=== PATIENT | female | born 1945 | race Caucasian/White ===

== ENCOUNTER → 2020-02-05 10:12 | Outpatient (CLI) | payer OTHER, SELFPAY ==
[2020-02-05 12:21] LABS: Add Manual Diff / Slide Review NO; Basophils Absolute Auto 100 /uL (0-100); Eosinophils Absolute Auto 400 /uL (0-450); Eosinophils Percent Auto 3.2 % (2-4); Hematocrit 40.8 % (36-46); Hemoglobin 13.4 g/dL (12.0-16.0); Lymphocytes Absolute Auto 3500 /uL (1100-4500); Lymphocytes Percent Auto 29.5 % (25-40); Mean Corpuscular HGB Conc 32.7 % (30-36); Mean Corpuscular Hemoglobin 31.7 PG (26-34); Mean Corpuscular Volume 96.7 fL (80-100); Monocytes Absolute Auto 800 /uL (0-900); Monocytes Percent Auto 6.3 % (3-14); Neutrophils Absolute Auto 7100 /uL (1500-7000); Platelet Count 169 X10^3/uL (150-400); Red Blood Cell Count 4.22 X10^6/uL (4.0-5.2); Red Cell Distribution Width 13.7 % (11.6-14.8); White Blood Cell Count 11.8 X10^3/uL (4.5-11.0)
[2020-02-05 12:35] LABS: Alanine Aminotransferase 17 IU/L (<35); Albumin 4.2 g/dL (3.5-5.0); Albumin Globulin Ratio 1.6 (1.0-2.8); Alkaline Phosphatase 34 U/L (38-126); Aspartate Aminotransferase 32 IU/L (14-36); BUN Creatinine Ratio 33.3 (6-22); Bilirubin Total 0.5 mg/dL (0.2-1.3); Blood Urea Nitrogen 15 mg/dL (7-17); Calcium 9.5 mg/dL (8.4-10.2); Carbon Dioxide 29 mmol/L (22-32); Chloride 105 mmol/L (98-107); Cholesterol 258 mg/dL (140-199); Estimated Glomerular Filt Rate > 60.0 mL/min (>60); Globulin 2.6 g/dL (1.7-4.1); Glucose 88 mg/dL (80-110); HDL Cholesterol 44 mg/dL (40-60); HEMOLYSIS < 15 (0-50); LDL Cholesterol Calculated 143 mg/dL (<100); Potassium 3.9 mmol/L (3.4-5.1); Sodium 141 mmol/L (137-145); Total Protein 6.8 g/dL (6.3-8.2); Triglycerides 354 mg/dL (35-150)
== END ==
PROVIDERS: PCP Family Medicine; Referring Provider Family Medicine; Visit Provider Family Medicine
DX: E78.2 Mixed hyperlipidemia (principal); M06.9 Rheumatoid arthritis, unspecified; Z79.899 Other long term (current) drug therapy
CPT/HCPCS: 36415; 80053; 80061; 85025

== ENCOUNTER 2020-11-03 11:39 | Emergency (ER) | payer OTHER, MEDICAID, SELFPAY ==
[2020-11-03] VITALS (12 sets, daily range): BP systolic 81–97; BP diastolic 44–55; PULSE 80–89; RESP 16; TEMP 36.2; O2SAT 94–98
--- NOTE | 2020-11-03 11:40 | PC.NURSE ---
Brought via wheelchair, with family. NAD noted
--- NOTE | 2020-11-03 15:06 | ED_ITS ---
HPI - Wound/Laceration General Chief Complaint: Wound/Laceration Stated Complaint: Sore on the Back Time Seen by Provider: 11/03/20 15:06 Source: patient Mode of arrival: Wheelchair Limitations: no limitations History of Present Illness HPI narrative: This is a 75-year-old female comes emergency department with comp laint of wound on her back. Patient states it has been there for approximately a month. She states initially it started with likely a skin tear after her skin got stuck to her wheelchair when it was very hot. She is not able to visualize the area. She states her caregiver noted there was a little bit of a smell today. Patient was seen at the walk-in clinic and was referred to us. She has been afebrile the area is nonpainful. She has not appreciated much discharge. She does not know if it has been growing in size but does not think it has been healing in all. She denies any chest pain or shortness of breath. No nausea or vomiting, no other GI or urinary symptoms. She has a history of rheumatoid arthritis as well as multiple sclerosis. She is also on methotrexate daily. She is wheelchair bound. Patient is noted to be hypotensive in the department. She states this is very much her normal and is not atypical. She is accompanied by her daughter who is also wheelchair-bound secondary to MS. Related Data Home Medications Medication Instructions Recorded Confirmed [bee pollen complex] #0 02/10/16 06/24/20 [garlic] #0 02/10/16 06/24/20 [probiotic] #0 02/10/16 06/24/20 [vitamin d3] #0 02/10/16 06/24/20 ascorbic acid (vitamin C) 500 mg #0 02/10/16 06/24/20 tablet folic acid 1 mg tablet #0 02/10/16 06/24/20 glucosamine sulfate 500 mg capsule #0 02/10/16 06/24/20 (Genicin) lorazepam 0.5 mg tablet (Ativan) 0.5 mg PO HS #90 tab 02/10/16 06/24/20 multivitamin (Multiple Vitamins) #0 02/10/16 06/24/20 vitamin B complex (B #0 02/10/16 06/24/20 Complex-Vitamin B12) vitamin E 100 unit capsule #0 02/10/16 06/24/20 Previous Rx's Medication Instructions Recorded Wheelchair: Power Mobility Device ea #1 02/10/16 alendronate 70 mg tablet (Fosamax) 70 mg PO QWEEK #4 tab 10/11/17 mupirocin 2 % topical ointment 1 applictn TOP BID #30 gram 04/06/18 incontinence supplies #150 each 05/05/18 wheelchair #1 each 07/24/18 methotrexate sodium 2.5 mg tablet 12.5 mg PO .COMPLEX #90 tab 10/09/19 hydroxychloroquine 200 mg tablet 200 mg PO BID #60 tab 01/16/20 (Plaquenil) atorvastatin 40 mg tablet 40 mg PO DAILY #90 tab 02/08/20 prednisone 2.5 mg tablet See Rx Instructions .ROUTE 09/04/20 .COMPLEX #90 tab potassium chloride 10 mEq See Rx Instructions .ROUTE 10/07/20 capsule,extended release .COMPLEX #60 cap clindamycin HCl 300 mg capsule 300 mg PO QID #40 cap 11/03/20 Allergies Allergy/AdvReac Type Severity Reaction Status Date / Time NSAIDS (Non-Steroidal Allergy Mild Verified 06/24/20 09:42 Anti-Inflamma [NSAIDS (NON-STEROIDAL ANTI-INFLAMMA] Review of Systems Review of Systems ROS Unobtainable: All systems reviewed & are unremarkable except as noted in HPI and below Patient History Social History Smoking Status: Never smoker Smoking Status: Never smoker Substance Use Type: does not use Exam Narrative Exam Narrative: GENERAL: Alert and oriented x three, elderly female in mild distress. HEENT: Head normocephalic, atraumatic, EOMI, pupils reactive, face symmetric, moist mucous membranes NECK: Supple, full range of motion CARDIOVASCULAR: Regular rate and rhythm without murmurs, rubs or gallops. RESPIRATORY: Breath sounds equal bilaterally, no wheezes rales or rhonchi. ABDOMEN: Soft, nontender. Normoactive bowel sounds all 4 quadrants. No guarding or rebound, rigidity, no mass : No CVA tenderness BACK: No cervical, thoracic or lumbar vertebral point tenderness. Patient does have severe kyphosis. On her right thoracic back she has an area of 8 x 6 cm with central ulceration. There is some some foul odor. There is no active drainage and there is film of white discoloration. Area is nontender. There is a ring of induration surrounding with some localized erythema but not extending more than a cm beyond the edge. There is no fluctuance. Patient has normally decreased range of motion and requires significant assistance for movement in bed. Patient has normal movement in her upper extremities. She has little movement in her lower extremities. EXTREMITIES: Neurovascularly intact NEUROLOGICAL: Cranial nerves II through XII grossly intact. Moving all extremities SKIN: Warm, dry, no petechiae, no rashes or lesions other than noted above. Initial Vital Signs Initial Vital Signs: Vital Signs Temperature 97.2 F L 11/03/20 12:23 Pulse Rate 89 11/03/20 12:23 Respiratory Rate 16 11/03/20 12:23 Blood Pressure 88/44 L 11/03/20 12:23 Pulse Oximetry 94 11/03/20 12:23 Course Orders Ordered: ED Orders 11/03/20 15:20 CT chest w con Stat 11/03/20 15:25 Consult to [facility] [place] [facility] Man Stat 11/03/20 15:27 Wound Culture and Gram Stain Stat 11/03/20 15:42 Basic Metabolic Panel Stat Complete Blood Count AUTO DIFF Stat Lactate (Lactic Acid) Stat Procalcitonin Stat 11/03/20 15:49 Blood Culture Stat 11/03/20 16:06 Consult to Home Health Stat Discontinued Medications Clindamycin Phosphate (Cleocin) 600 mg in 50 mls @ 50 mls/hr IV Q8H MÓNICA Last Infusion: 11/03/20 17:54 Dose: 0 mls/hr Documented by: Admin: 11/03/20 16:39 Dose: 50 mls/hr Documented by: LETTY Bray Consultation #1: Dr. Negron patient's PCP and I discussed her findings today. Wound care referral for home management but that patient may return with worsening infection and need inpatient. Vital Signs Vital signs: Vital Signs - 8 hr 11/03/20 12:23 11/03/20 15:10 11/03/20 15:13 Temperature 97.2 F L Pulse Rate 89 89 84 Respiratory Rate 16 Blood Pressure 88/44 L Pulse Oximetry 94 97 97 11/03/20 15:19 11/03/20 15:30 11/03/20 15:52 Temperature Pulse Rate 84 Respiratory Rate Blood Pressure 85/53 L 85/50 L Pulse Oximetry 98 11/03/20 16:00 11/03/20 16:30 11/03/20 17:14 Temperature Pulse Rate 85 83 80 Respiratory Rate Blood Pressure 88/52 L 81/47 L Pulse Oximetry 97 98 96 11/03/20 17:15 11/03/20 17:30 11/03/20 18:00 Temperature Pulse Rate 80 80 83 Respiratory Rate Blood Pressure 97/50 L 90/49 L 89/55 L Pulse Oximetry 97 98 98 MDM - Wound/Laceration Lab Data Result diagrams: 11/03/20 15:42 11/03/20 15:42 Labs: Lab Results 11/03/20 11/03/20 11/03/20 Range/Units 15:42 15:42 15:42 WBC 13.2 H (4.5-11.0) X10^3/uL RBC 3.84 L (4.0-5.2) X10^6/uL Hgb 12.2 (12.0-16.0) g/dL Hct 37.3 (36-46) % MCV 97.2 (80-100) fL MCH 31.8 (26-34) PG MCHC 32.7 (30-36) % RDW 13.8 (11.6-14.8) % Plt Count 220 (150-400) X10^3/uL Neut % (Auto) 68.3 (50-75) % Lymph % (Auto) 19.9 L (25-40) % Brantley % (Auto) 8.2 (3-14) % Eos % (Auto) 2.2 (2-4) % Baso % (Auto) 1.4 (0-2) % Neut # (Auto) 9000 H (1410-0440) /uL Lymph # (Auto) 2600 (4306-2462) /uL Brantley # (Auto) 1100 H (0-900) /uL Eos # (Auto) 300 (0-450) /uL Baso # (Auto) 200 H (0-100) /uL Sodium 140 (137-145) mmol/L Potassium 3.9 (3.4-5.1) mmol/L Chloride 104 (98-107) mmol/L Carbon Dioxide 30 (22-32) mmol/L BUN 10 (7-17) mg/dL Creatinine 0.34 L (0.52-1.04) mg/dL Estimated GFR > 60.0 (>60) mL/min BUN/Creatinine Ratio 29.4 H (6-22) Glucose 103 (80-110) mg/dL Lactate 1.0 (0.7-2.1) mmol/L Calcium 9.6 (8.4-10.2) mg/dL Procalcitonin 0.55 H (<0.5) ng/mL Imaging Data CT scan - chest: Radiologist's Impression: [address] [id number] Scan ReportSigned Patient: Juliana Angel EMR#: [id number]: 1945cct:[id number]/Sex: 75 / FDate of Service: 11/03/20Loc: EDAccession Number: [id number] Procedure: CT chest w con Ordering Provider: Patsy Jiang D.O. PROCEDURE: CT CHEST W CON INDICATIONS: large wound on back, pressure ulcer TECHNIQUE: After the administration of intravenous contrast, 5 mm thick sections acquired from the pulmonary apices to the posterior costophrenic angles. 1 mm axial lung, 5 mm t hick coronal and sagittal reformats and 7 mm axial MIP were acquired. For radiation dose reduction, the following was used: automated exposure control, adjustment of mA and/or kV according to patient size. COMPARISON: None. FINDINGS: Image quality: Excellent. Lungs and pleura: No acute air space opacities. No pleural effusions or pneumothorax. Central and peripheral airways are patent and normal in caliber. Mediastinum: Heart size is normal. No pericardial effusion. No mediastinal or hilar adenopathy by size criteria. Thoracic aorta and central pulmonary arteries are normal in size. Esophagus is normal in caliber. No hiatal hernia. Bones and chest wall: No suspicious bony lesions. No vertebral body compression fractures. No axillary or supraclavicular adenopathy by size criteria. Thyroid gland is normal. There is soft tissue swelling posterior to the thoracic spine from T12 through L1 without underlying bony abnormality. Abdomen: Visualized upper abdominal solid organs appear normal. Upper abdominal bowel loops are normal in caliber. IMPRESSION: Soft tissue swelling in the midline of the lower thoracic spine. No evidence of underlying osteomyelitis. Dictated by: Aleksandr Salazar M.D. on 11/03/2020 at 17:41 Approved by: Aleksandr Salazar M.D. on 11/03/2020 at 17:46 [facility] Narrative Medical decision making narrative: This is a 75-year-old female comes with co mplaint of fluids and present for at least a month. Patient was sent by her caregiver for to walk-in clinic who then sent her here for evaluation. I suspect the area is infected. CT of the chest was obtained and there is no obvious osteomyelitis seen. Patient's labs do show an elevated procalcitonin. Patient has blood cultures as well as a wound culture pending. She was given a dose of IV antibiotics and we discussed keeping her for observation. Patient does not wish to be kept for inpatient observation at this time. We did discuss with her elevated procalcitonin at there is a possibility that she could have bacteremia or that she may fail on oral antibiotics and need to return for h ospitalization. Patient expresses her understanding, her daughter at bedside is also present. Patient has significant disability secondary to her MS and rheumatoid arthritis. She requested if it is possible to have Wound Care see her at home, our social media marketing analyst help to arrange this and she will likely be seen in the next few days. Discharge Plan Departure Patient Disposition: Home Clinical Impression: Infected wound Instructions: DI for Wound Infection Activity Restrictions/Additional Instructions: You have a large infected wound of your back. There is not appear to be any signs of infection in the bone. As discussed observation in the hospital for IV antibiotics would be appropriate but we can try a course of oral antibiotics. Wound care at home has been set up by social Work. Call to follow-up with your primary care physician to make sure your continuing to improve and for continuing care and directions for wound care. [facility] So you had received the 1st dose here start are while in biotics in the morning. Please return for fevers, new back pain, lightheadedness or passing out, chest pain or shortness of breath, persistent vomiting, new or increasing drainage from her back, increasing redness or spreading redness from your back or other new or worsening symptoms Prescriptions: New clindamycin HCl 300 mg capsule 300 mg PO QID Qty: 40 RF: 0 No Action mupirocin 2 % ointment 1 applictn TOP BID Qty: 30 RF: 0 lorazepam [Ativan] 0.5 MG tablet 0.5 mg PO HS Qty: 90 RF: 0 folic acid 1 MG tablet Qty: 0 RF: 0 [garlic] Qty: 0 RF: 0 multivitamin [Multiple Vitamins] 1 EACH tablet Qty: 0 RF: 0 [probiotic] Qty: 0 RF: 0 [vitamin d3] Qty: 0 RF: 0 vitamin E 100 UNIT capsule Qty: 0 RF: 0 ascorbic acid (vitamin C) 500 MG tablet Qty: 0 RF: 0 glucosamine sulfate [Genicin] 500 MG capsule Qty: 0 RF: 0 vitamin B complex [B Complex-Vitamin B12] 1 EACH tablet Qty: 0 RF: 0 [bee pollen complex] Qty: 0 RF: 0 Wheelchair: Power Mobility Device Qty: 1 RF: 0 alendronate [Fosamax] 70 mg tablet 70 mg PO QWEEK Qty: 4 RF: 3 (DME) incontinence supplies Qty: 150 RF: 0 (DME) wheelchair device See Dose Instructions .ROUTE .MEDSUPPLY Qty: 1 RF: 0 methotrexate sodium 2.5 mg tablet 12.5 mg PO .COMPLEX Qty: 90 RF: 3 hydroxychloroquine [Plaquenil] 200 mg tablet 200 mg PO BID Qty: 60 RF: 3 atorvastatin 40 mg tablet 40 mg PO DAILY Qty: 90 RF: 1 prednisone 2.5 mg tablet See Rx Instructions .ROUTE .COMPLEX Qty: 90 RF: 5 potassium chloride 10 mEq capsule, extended release See Rx Instructions .ROUTE .COMPLEX Qty: 60 RF: 1 Referrals: Radha Negron MD [Primary Care Provider] -
--- NOTE | 2020-11-03 15:20 | DI.CT.S_ITS ---
PROCEDURE: CT CHEST W CON INDICATIONS: large wound on back, pressure ulcer TECHNIQUE: After the administration of intravenous contrast, 5 mm thick sections acquired from the pulmonary apices to the posterior costophrenic angles. 1 mm axial lung, 5 mm thick coronal and sagittal reformats and 7 mm axial MIP were acquired. For radiation dose reduction, the following was used: automated exposure control, adjustment of mA and/or kV according to patient size. COMPARISON: None. FINDINGS: Image quality: Excellent. Lungs and pleura: No acute air space opacities. No pleural effusions or pneumothorax. Central and peripheral airways are patent and normal in caliber. Mediastinum: Heart size is normal. No pericardial effusion. No mediastinal or hilar adenopathy by size criteria. Thoracic aorta and central pulmonary arteries are normal in size. Esophagus is normal in caliber. No hiatal hernia. Bones and chest wall: No suspicious bony lesions. No vertebral body compression fractures. No axillary or supraclavicular adenopathy by size criteria. Thyroid gland is normal. There is soft tissue swelling posterior to the thoracic spine from T12 through L1 without underlying bony abnormality. Abdomen: Visualized upper abdominal solid organs appear normal. Upper abdominal bowel loops are normal in caliber. IMPRESSION: Soft tissue swelling in the midline of the lower thoracic spine. No evidence of underlying osteomyelitis. Dictated by: Aleksandr Salazar M.D. on 11/03/2020 at 17:41 Approved by: Aleksandr Salazar M.D. on 11/03/2020 at 17:46
[2020-11-03 15:58] LABS: Add Manual Diff / Slide Review NO; Basophils Absolute Auto 200 /uL (0-100); Basophils Percent Auto 1.4 % (0-2); Eosinophils Absolute Auto 300 /uL (0-450); Eosinophils Percent Auto 2.2 % (2-4); Hematocrit 37.3 % (36-46); Hemoglobin 12.2 g/dL (12.0-16.0); Lymphocytes Absolute Auto 2600 /uL (1100-4500); Lymphocytes Percent Auto 19.9 % (25-40); Mean Corpuscular HGB Conc 32.7 % (30-36); Mean Corpuscular Hemoglobin 31.8 PG (26-34); Mean Corpuscular Volume 97.2 fL (80-100); Monocytes Absolute Auto 1100 /uL (0-900); Monocytes Percent Auto 8.2 % (3-14); Neutrophils Absolute Auto 9000 /uL (1500-7000); Neutrophils Percent Auto 68.3 % (50-75); Platelet Count 220 X10^3/uL (150-400); Red Blood Cell Count 3.84 X10^6/uL (4.0-5.2); Red Cell Distribution Width 13.8 % (11.6-14.8); White Blood Cell Count 13.2 X10^3/uL (4.5-11.0)
[2020-11-03 16:09] LABS: BUN Creatinine Ratio 29.4 (6-22); Blood Urea Nitrogen 10 mg/dL (7-17); Calcium 9.6 mg/dL (8.4-10.2); Carbon Dioxide 30 mmol/L (22-32); Chloride 104 mmol/L (98-107); Estimated Glomerular Filt Rate > 60.0 mL/min (>60); Glucose 103 mg/dL (80-110); HEMOLYSIS < 15 (0-50); Potassium 3.9 mmol/L (3.4-5.1); Sodium 140 mmol/L (137-145)
[2020-11-03 16:26] LABS: Procalcitonin 0.55 ng/mL (<0.5)
[2020-11-03] MEDS: CLINDAMYCIN 600 MG/50 ML PIGGYBACK 50 MG IV (16:39)
--- NOTE | 2020-11-03 16:51 | CM.SWNOTE ---
COMPOSITE MECHANIC Note COMPOSITE MECHANIC receives consult and meets with patient and daughter Mekhi. Patient is 75 y/o female who presents with concerns for wound on her back. Patient has hx of MS and is wheelchair bound. Patient has daily caregivers in the morning and evening that support patient with ADLs, shopping and cleaning. Patient endorses that caregivers support patient with transfer from recliner to wheelchair, transfer to toileting and sponge bath bathing as well as getting dressed. COMPOSITE MECHANIC discusses HH for worship pastor and bath aide, patient indicates agreement and understanding and suggests COMPOSITE MECHANIC contact one of her caregivers Gillian (Ph. # [phone]) who will also be providing ride for patient upon d/c. COMPOSITE MECHANIC provides patient with medicare HH options and patient chooses [facility] as she has utilized this agency before. COMPOSITE MECHANIC contacts caregiver Gillian and Gillian indicates agreement with managed care manager and HH bath aide services and indicates she will follow up with patient's further needs after HH. COMPOSITE MECHANIC contacts Stephanie at [facility] (Ph. # [phone]) regarding referral and COMPOSITE MECHANIC faxes clinical packet. COMPOSITE MECHANIC provides patient with [facility] brochure, senior resource guide and Medicare HH option list. Plan: Patient to d/c to home when medically clear with [facility]. KERI Sweeney
--- NOTE | 2020-11-03 17:56 | PC.NURSE ---
patient reports hypotention at baseline. states im always 80s and 90s. Provider aware.
== END 2020-11-03 18:35 | disposition home or self-care (01) ==
PROVIDERS: Emergency Provider Emergency Medicine; PCP Family Medicine
DX: L08.9 Local infection of the skin and subcutaneous tissue, unspecified (principal)
CPT/HCPCS: 36415; 71260; 80048; 83605; 84145; 85025; 87040; 87070; 87075; 87077; 87186; 87205; 96365; 99284; Q9967

== ENCOUNTER 2020-11-09 17:18 | Inpatient (IN) | payer OTHER, MEDICAID, SELFPAY ==
[2020-11-09] VITALS (76 sets, daily range): BP systolic 53–122; BP diastolic 27–65; PULSE 84–104; RESP 18–39; TEMP 37–37.9; O2SAT 92–98
--- NOTE | 2020-11-09 17:55 | DI.RAD.S_ITS ---
PROCEDURE: XR CHEST 1V INDICATIONS: suspected sepsis TECHNIQUE: One view of the chest was acquired. COMPARISON: None. FINDINGS: Limited exam due to patient condition and inability to position Surgical changes and devices: None. Lungs and pleura: Coarse interstitial markings throughout the visible lung oliver. Mediastinum: Obscured Bones and chest wall: Rotated, kyphotic, and scoliotic patient. IMPRESSION: Grossly aerated upper lungs with coarse interstitial markings. Dictated by: Madelyn Cortez M.D. on 11/09/2020 at 18:47 Approved by: Madelyn Cortez M.D. on 11/09/2020 at 18:50
[2020-11-09 18:03] LABS: COVID19 -Nasal RAPID Negative (Negative)
[2020-11-09] MEDS: ACETAMINOPHEN 325 MG TABLET 975 MG PO (18:15)
[2020-11-09] MEDS: SODIUM CHLORIDE 0.9% 1,000 ML 1000 ML IV (18:16)
[2020-11-09 18:17] LABS: Bacteria Urine None Seen; RBC Urine None Seen (0-5/HPF)
[2020-11-09 18:20] LABS: Add Manual Diff / Slide Review NO; Basophils Absolute Auto 300 /uL (0-100); Basophils Percent Auto 2.1 % (0-2); Eosinophils Absolute Auto 500 /uL (0-450); Eosinophils Percent Auto 3.8 % (2-4); Hematocrit 35.3 % (36-46); Hemoglobin 11.6 g/dL (12.0-16.0); Lymphocytes Absolute Auto 600 /uL (1100-4500); Lymphocytes Percent Auto 4.4 % (25-40); Mean Corpuscular HGB Conc 32.9 % (30-36); Mean Corpuscular Hemoglobin 31.5 PG (26-34); Monocytes Absolute Auto 500 /uL (0-900); Monocytes Percent Auto 3.5 % (3-14); Neutrophils Absolute Auto 11200 /uL (1500-7000); Neutrophils Percent Auto 86.2 % (50-75); Platelet Count 234 X10^3/uL (150-400); Red Blood Cell Count 3.67 X10^6/uL (4.0-5.2); Red Cell Distribution Width 13.1 % (11.6-14.8)
--- NOTE | 2020-11-09 18:22 | ED.FEVER ---
HPI - Fever General Chief Complaint: Fever Stated Complaint: fever Time Seen by Provider: 11/09/20 18:04 Source: patient Mode of arrival: Ambulatory Limitations: no limitations History of Present Illness HPI Narrative: This is a 75-year-old female who was seen by myself on September 03 for large wound on her back they felt it likely been there for approximately a month. Patient was initially offered observation is the risk concern that she would likely become septic. She was hypotensive in the 90s but according to her as well as her daughter that was very much her normal systolic blood pressure. Today she is brought in febrile. She does not seem confused but she is not quite as perky issue was on her last visit. She states that she feels a little less well than normal but denies any weakness. She has had a mild cough which has been chronic and is nonproductive she denies chest pain, she denies shortness of breath. She has had occasional nasal congestion. She denies any pain in her back. She is aware of the wound on his been taking oral antibiotics which were prescribed regularly. Patient has not had any nausea or vomiting. She has had normal bowel movements. She denies any diarrhea constipation. She has chronic urinary incontinence denies any dysuria or odor. She does have a history of rheumatoid arthritis as well as multiple sclerosis and is wheelchair bound secondary to debility. She is on methotrexate daily. She is allergic to NSAIDs. Related Data Home Medications Medication Instructions Recorded Confirmed ascorbic acid (vitamin C) 500 mg 500 mg PO DAILY #0 02/10/16 11/10/20 tablet folic acid 1 mg tablet 1 mg PO DAILY #0 02/10/16 11/10/20 lorazepam 0.5 mg tablet (Ativan) 0.5 mg PO HS #90 tab 02/10/16 11/10/20 multivitamin (Multiple Vitamins) 1 tab PO DAILY #0 02/10/16 11/10/20 Previous Rx's Medication Instructions Recorded alendronate 70 mg tablet (Fosamax) 70 mg PO QWEEK #4 tab 10/11/17 mupirocin 2 % topical ointment 1 applictn TOP BID #30 gram 04/06/18 incontinence supplies #150 each 05/05/18 wheelchair #1 each 07/24/18 methotrexate sodium 2.5 mg tablet 12.5 mg PO .COMPLEX #90 tab 10/09/19 hydroxychloroquine 200 mg tablet 200 mg PO BID #60 tab 01/16/20 (Plaquenil) atorvastatin 40 mg tablet 40 mg PO DAILY #90 tab 02/08/20 prednisone 2.5 mg tablet See Rx Instructions .ROUTE 09/04/20 .COMPLEX #90 tab potassium chloride 10 mEq See Rx Instructions .ROUTE 10/07/20 capsule,extended release .COMPLEX #60 cap clindamycin HCl 300 mg capsule 300 mg PO QID #40 cap 11/03/20 Allergies Allergy/AdvReac Type Severity Reaction Status Date / Time NSAIDS (Non-Steroidal Allergy Mild Verified 06/24/20 09:42 Anti-Inflamma [NSAIDS (NON-STEROIDAL ANTI-INFLAMMA] Review of Systems Review of Systems ROS Unobtainable: All systems reviewed & are unremarkable except as noted in HPI and below Patient History Social History household members: none Smoking Status: Never smoker alcohol intake: never Smoking Status: Never smoker Substance Use Type: does not use Exam Narrative Exam Narrative: GEN: Thin elderly female, alert and oriented x 3, patient appears to be in mild distress. HEENT: Atraumatic, pupils are equal round reactive to light, extraocular movements are intact, nares are clear. Throat is clear without any exudates, erythema, tonsillar enlargement or uvular deviation. HEART: Regular rate and rhythm without murmur, clicks, rubs. Pulses are equal in upper and lower extremities LUNGS:Lungs clear to auscultation, no wheezes, rales, crackles, chest moves symmetrically ABD:bowel sounds normal, soft, non-tender, no guarding, rebound, rigidity, no masses noted, no hepatosplenomegaly :No CVA tenderness BACK: No cervical, thoracic or lumbar vertebral point tenderness. Patient has significantly decreased range of motion. Patient has severe kyphosis and scoliosis on exam. On her thoracic region patient has a large 8 x 6 cm central solution with some hot odor. Areas nontender. There is ring of induration just localized but not extending beyond. There is no fluctuance noted. Patient has significantly decreased range of motion of lower extremities and at the pelvis and require significant assistance to even repositioned in bed. MSCL: Non-tender, patient has normal range of motion of her upper extremities. 2+ pulses bilaterally. NEURO:CN 2-12 intact, sensation normal SKIN: See above Initial Vital Signs Initial Vital Signs: Vital Signs Temperature 100.3 F H 11/09/20 17:30 Pulse Rate 104 H 11/09/20 17:30 Respiratory Rate 20 11/09/20 17:30 Blood Pressure 94/54 L 11/09/20 17:30 Pulse Oximetry 94 11/09/20 17:30 Scores GCS [place] coma scale eye opening: Spontaneous Deanne coma scale verbal response: Orientated [place] coma scale motor response: Obey commands [place] coma scale total score: 15 Course Orders Ordered: Acetaminophen (Acetaminophen 325 Mg Tablet) 650 mg PO Q6HR PRN PRN Reason: Fever Last Admin: 11/11/20 08:56 Dose: 650 mg Documented by: Admin: 11/10/20 09:39 Dose: 650 mg Documented by: CONNIE Atorvastatin Calcium (Atorvastatin 20 Mg Tablet) 40 mg PO DAILY [facility] Last Admin: 11/11/20 09:02 Dose: Not Given Documented by: Admin: 11/10/20 08:54 Dose: 40 mg Documented by: CONNIE Docusate Sodium (Docusate 100 Mg Capsule) 100 mg PO BID [facility] Last Admin: 11/11/20 09:02 Dose: Not Given Documented by: Admin: 11/10/20 20:13 Dose: 100 mg Documented by: Admin: 11/10/20 08:55 Dose: 100 mg Documented by: CONNIE Enoxaparin Sodium (Enoxaparin 40 Mg/0.4 Ml Syringe) 40 mg SUBCUT DAILY [facility] Last Admin: 11/11/20 09:03 Dose: Not Given Documented by: Admin: 11/10/20 08:55 Dose: 40 mg Documented by: CONNIE Hydroxychloroquine Sulfate (Hydroxychloroquine 200 Mg Tablet) 200 mg PO BID [facility] Last Admin: 11/11/20 09:03 Dose: Not Given Documented by: Admin: 11/10/20 20:16 Dose: 200 mg Documented by: Admin: 11/10/20 08:55 Dose: 200 mg Documented by: Admin: 11/10/20 01:32 Dose: Not Given Documented by: SSARDEL Norepinephrine Bitartrate 4 mg (/ Dextrose) 254 mls @ 30.48 mls/hr IV TITRATE [facility]; Protocol Last Titration: 11/11/20 09:46 Dose: 0 mcg/min, 0 mls/hr Documented by: Titration: 11/11/20 08:02 Dose: 0.5 mcg/min, 1.905 mls/hr Documented by: Titration: 11/11/20 06:12 Dose: 1 mcg/min, 3.81 mls/hr Documented by: Titration: 11/11/20 04:24 Dose: 1.5 mcg/min, 5.715 mls/hr Documented by: Titration: 11/11/20 03:49 Dose: 2 mcg/min, 7.62 mls/hr Documented by: Titration: 11/11/20 03:01 Dose: 1 mcg/min, 3.81 mls/hr Documented by: Titration: 11/11/20 02:23 Dose: 1.5 mcg/min, 5.715 mls/hr Documented by: Titration: 11/11/20 00:29 Dose: 2 mcg/min, 7.62 mls/hr Documented by: Titration: 11/11/20 00:00 Dose: 2.5 mcg/min, 9.525 mls/hr Documented by: Titration: 11/10/20 23:25 Dose: 2 mcg/min, 7.62 mls/hr Documented by: Titration: 11/10/20 19:30 Dose: 1.5 mcg/min, 5.715 mls/hr Documented by: Titration: 11/10/20 18:00 Dose: 1 mcg/min, 3.81 mls/hr Documented by: Titration: 11/10/20 14:45 Dose: 1.5 mcg/min, 5.715 mls/hr Documented by: Titration: 11/10/20 12:41 Dose: 2.5 mcg/min, 9.525 mls/hr Documented by: Titration: 11/10/20 11:05 Dose: 3 mcg/min, 11.43 mls/hr Documented by: Titration: 11/10/20 10:12 Dose: 4 mcg/min, 15.24 mls/hr Documented by: Admin: 11/10/20 08:56 Dose: 5 mcg/min, 19.05 mls/hr Documented by: Titration: 11/10/20 08:53 Dose: 5 mcg/min, 19.05 mls/hr Documented by: Titration: 11/10/20 02:32 Dose: 5 mcg/min, 19.05 mls/hr Documented by: Titration: 11/10/20 01:55 Dose: 4 mcg/min, 15.24 mls/hr Documented by: Titration: 11/10/20 00:58 Dose: 5 mcg/min, 19.05 mls/hr Documented by: Titration: 11/09/20 22:46 Dose: 5 mcg/min, 19.05 mls/hr Documented by: Titration: 11/09/20 22:41 Dose: 3 mcg/min, 11.43 mls/hr Documented by: Titration: 11/09/20 22:31 Dose: 5 mcg/min, 19.05 mls/hr Documented by: Titration: 11/09/20 22:21 Dose: 3 mcg/min, 11.43 mls/hr Documented by: Titration: 11/09/20 20:36 Dose: 5 mcg/min, 19.05 mls/hr Documented by: Titration: 11/09/20 20:28 Dose: 0 mcg/min, 0 mls/hr Documented by: Titration: 11/09/20 19:48 Dose: 5 mcg/min, 19.05 mls/hr Documented by: Admin: 11/09/20 19:25 Dose: 8 mcg/min, 30.48 mls/hr Documented by: KBROTEM Piperacillin Sod/Tazobactam (Sod 3.375 gm/ Sodium Chloride) 100 mls @ 25 mls/hr IV Q8H [facility]NICA Last Infusion: 11/11/20 09:44 Dose: 0 mls/hr Documented by: Admin: 11/11/20 04:35 Dose: 25 mls/hr Documented by: Infusion: 11/11/20 02:22 Dose: 0 mls/hr Documented by: Admin: 11/10/20 20:17 Dose: 25 mls/hr Documented by: Infusion: 11/10/20 20:16 Dose: 0 mls/hr Documented by: Admin: 11/10/20 12:42 Dose: 25 mls/hr Documented by: Infusion: 11/10/20 11:14 Dose: 0 mls/hr Documented by: Admin: 11/10/20 07:24 Dose: Not Given Documented by: Admin: 11/10/20 07:08 Dose: Not Given Documented by: Admin: 11/10/20 07:06 Dose: 25 mls/hr Documented by: HETAL Lactated Ringer's (Lactated Ringers) 1,000 mls @ 150 mls/hr IV CONT [facility]ICA Last Admin: 11/11/20 08:56 Dose: 150 mls/hr Documented by: Infusion: 11/11/20 07:27 Dose: 200 mls/hr Documented by: Admin: 11/11/20 02:27 Dose: 200 mls/hr Documented by: Infusion: 11/11/20 01:34 Dose: 200 mls/hr Documented by: Admin: 11/10/20 20:34 Dose: 200 mls/hr Documented by: Infusion: 11/10/20 19:00 Dose: 200 mls/hr Documented by: Admin: 11/10/20 14:00 Dose: 200 mls/hr Documented by: Infusion: 11/10/20 13:59 Dose: 200 mls/hr Documented by: Admin: 11/10/20 08:59 Dose: 200 mls/hr Documented by: Infusion: 11/10/20 08:59 Dose: 200 mls/hr Documented by: Admin: 11/10/20 03:59 Dose: 200 mls/hr Documented by: Infusion: 11/10/20 03:59 Dose: 200 mls/hr Documented by: Infusion: 11/10/20 00:58 Dose: 200 mls/hr Documented by: Admin: 11/09/20 23:24 Dose: 200 mls/hr Documented by: OSCAR Vancomycin HCl (Vancomycin) 1,000 mg in 200 mls @ 200 mls/hr IV Q12H [facility] Last Infusion: 11/11/20 09:47 Dose: 0 mls/hr Documented by: Admin: 11/11/20 08:56 Dose: 200 mls/hr Documented by: Infusion: 11/10/20 23:25 Dose: 0 mls/hr Documented by: Admin: 11/10/20 20:14 Dose: 200 mls/hr Documented by: Infusion: 11/10/20 10:12 Dose: 0 mls/hr Documented by: Admin: 11/10/20 09:07 Dose: 200 mls/hr Documented by: CONNIE Lorazepam (Lorazepam 0.5 Mg Tablet) 0.5 mg PO BEDTIME [facility] Last Admin: 11/10/20 20:13 Dose: 0.5 mg Documented by: Admin: 11/10/20 01:31 Dose: 0.5 mg Documented by: HETAL Metoclopramide HCl (Metoclopramide 10 Mg/2 Ml Inj) 10 mg IV Q6HR PRN PRN Reason: Nausea And Vomiting Naloxone HCl (Naloxone 0.4 Mg/Ml Vial) 0.2 mg IV Q2MIN PRN PRN Reason: Opiate Reversal Prednisone (Prednisone 5 Mg Tablet) 5 mg PO DAILY [facility] Last Admin: 11/11/20 09:03 Dose: Not Given Documented by: CONNIE Prednisone (Prednisone 5 Mg Tablet) 2.5 mg PO BEDTIME [facility] Last Admin: 11/10/20 20:16 Dose: 2.5 mg Documented by: SERGIO Discontinued Medications Acetaminophen (Acetaminophen 325 Mg Tablet) 975 mg PO NOW ONE Stop: 11/09/20 18:06 Last Admin: 11/09/20 18:15 Dose: 975 mg Documented by: JENNIFER Sodium Chloride (Normal Saline 0.9%) 1,000 mls @ 1,000 mls/hr IV BOLUS ONE Stop: 11/09/20 18:54 Last Infusion: 11/09/20 19:47 Dose: 0 mls/hr Documented by: Admin: 11/09/20 18:16 Dose: 1,000 mls/hr Documented by: JENNIFER Piperacillin Sod/Tazobactam (Sod 4.5 gm/ Sodium Chloride) 100 mls @ 200 mls/hr IV NOW ONE Stop: 11/09/20 18:12 Last Infusion: 11/09/20 19:09 Dose: 0 mls/hr Documented by: Admin: 11/09/20 18:32 Dose: 200 mls/hr Documented by: EVETTE Vancomycin HCl/Dextrose (Vancomycin) 2,000 mg in 400 mls @ 200 mls/hr IV NOW ONE Stop: 11/09/20 20:11 Last Infusion: 11/09/20 22:04 Dose: 0 mls/hr Documented by: Admin: 11/09/20 19:42 Dose: 200 mls/hr Documented by: JENNIFER Lactated Ringer's (Lactated Ringers) 1,692.45 mls @ 564.15 mls/hr 30 ml/kg infuse over 3 hr (1692.45 ml) IV NOW ONE Stop: 11/09/20 21:21 Last Infusion: 11/09/20 23:21 Dose: 0 mls/hr Documented by: Admin: 11/09/20 19:24 Dose: 564.15 mls/hr Documented by: SHABBIR Methotrexate (Methotrexate 2.5 Mg Tablet) 12.5 mg PO Tu@0900,1600 [facility] Prednisone (Prednisone 5 Mg Tablet) 2.5 mg PO BID [facility] Last Admin: 11/10/20 08:54 Dose: 2.5 mg Documented by: Admin: 11/10/20 01:31 Dose: 2.5 mg Documented by: HETAL Vancomycin HCl (Vancomycin Per Pharmacy) 1 request MISC NOW ONE Stop: 11/09/20 21:14 Last Admin: 11/10/20 08:44 Dose: Not Given Documented by: CONNIE Vancomycin HCl (Vancomycin Trough) 1 request MISC 0730 ONE Stop: 11/11/20 07:31 Last Admin: 11/11/20 08:57 Dose: 1 request Documented by: CONNIE Vancomycin HCl (Vancomycin Peak) 1 request MISC 1000 ONE Stop: 11/11/20 10:01 Last Admin: 11/11/20 10:13 Dose: 1 request Documented by: CONNIE Consultations Consultation #1: Dr. Jones, accepts for admission. He will see patient in the department. Plan to continue with current IV antibiotics. Patient is normal hypotensive with a systolic pressure in the 90s but has had lows even into the 70s here in the department and Levophed was initiated. Vital Signs Vital signs: Vital Signs - 8 hr 11/09/20 17:30 11/09/20 17:51 11/09/20 17:52 Temperature 100.3 F H Pulse Rate 104 H 99 H 99 H Respiratory Rate 20 27 H 26 H Blood Pressure 94/54 L 92/50 L Pulse Oximetry 94 92 92 11/09/20 17:53 11/09/20 18:00 11/09/20 18:01 Temperature Pulse Rate 98 H 98 H 97 H Respiratory Rate 25 H 33 H 30 H Blood Pressure 79/44 L 81/54 L 74/46 L Pulse Oximetry 93 94 93 11/09/20 18:05 11/09/20 18:10 11/09/20 18:15 Temperature 100.3 F H Pulse Rate 99 H 101 H Respiratory Rate 25 H 24 Blood Pressure 88/55 L 82/52 L Pulse Oximetry 93 94 11/09/20 18:16 11/09/20 18:21 11/09/20 18:30 Temperature Pulse Rate 101 H 99 H 102 H Respiratory Rate 24 31 H 19 Blood Pressure 86/50 L 75/48 L 92/56 L Pulse Oximetry 93 97 95 11/09/20 18:35 11/09/20 18:40 11/09/20 18:45 Temperature Pulse Rate 100 H 101 H 101 H Respiratory Rate 18 21 25 H Blood Pressure 82/45 L 72/42 L 77/49 L Pulse Oximetry 94 95 95 11/09/20 19:00 11/09/20 19:12 11/09/20 19:14 Temperature Pulse Rate 101 H 97 H 97 H Respiratory Rate 35 H 19 26 H Blood Pressure 80/37 L 53/27 L Pulse Oximetry 95 92 92 11/09/20 19:16 11/09/20 19:18 11/09/20 19:20 Temperature Pulse Rate 97 H 96 H 97 H Respiratory Rate 39 H 28 H 28 H Blood Pressure 61/44 L 79/35 L 78/42 L Pulse Oximetry 94 92 95 11/09/20 19:25 11/09/20 19:30 11/09/20 19:33 Temperature Pulse Rate 96 H 96 H 98 H Respiratory Rate 21 19 29 H Blood Pressure 76/39 L 80/35 L 87/53 L Pulse Oximetry 93 93 95 11/09/20 19:35 11/09/20 19:40 11/09/20 19:45 Temperature Pulse Rate 100 H 100 H 101 H Respiratory Rate 21 23 25 H Blood Pressure 92/58 L 96/61 100/53 L Pulse Oximetry 96 96 97 11/09/20 19:50 11/09/20 19:55 11/09/20 20:00 Temperature Pulse Rate 98 H 98 H 98 H Respiratory Rate 23 24 27 H Blood Pressure 92/54 L 95/51 L 94/54 L Pulse Oximetry 95 95 93 11/09/20 20:05 Temperature Pulse Rate 99 H Respiratory Rate 21 Blood Pressure 95/48 L Pulse Oximetry 94 MDM - Fever Lab Data Result diagrams: 11/11/20 04:50 11/11/20 04:50 Labs: Lab Results 11/09/20 11/09/20 11/09/20 Range/Units 17:25 17:50 17:50 WBC 13.0 H (4.5-11.0) X10^3/uL RBC 3.67 L (4.0-5.2) X10^6/uL Hgb 11.6 L (12.0-16.0) g/dL Hct 35.3 L (36-46) % MCV 96.0 (80-100) fL MCH 31.5 (26-34) PG MCHC 32.9 (30-36) % RDW 13.1 (11.6-14.8) % Plt Count 234 (150-400) X10^3/uL Neut % (Auto) 86.2 H (50-75) % Lymph % (Auto) 4.4 L (25-40) % [place] % (Auto) 3.5 (3-14) % Eos % (Auto) 3.8 (2-4) % Baso % (Auto) 2.1 H (0-2) % Neut # (Auto) 84164 H (9812-3993) /uL Lymph # (Auto) 600 L (7359-9370) /uL [place] # (Auto) 500 (0-900) /uL Eos # (Auto) 500 H (0-450) /uL Baso # (Auto) 300 H (0-100) /uL Sodium 136 L (137-145) mmol/L Potassium 4.3 (3.4-5.1) mmol/L Chloride 104 (98-107) mmol/L Carbon Dioxide 26 (22-32) mmol/L BUN 8 (7-17) mg/dL Creatinine 0.41 L (0.52-1.04) mg/dL Estimated GFR > 60.0 (>60) mL/min BUN/Creatinine Ratio 19.5 (6-22) Glucose 134 H (80-110) mg/dL Lactate (0.7-2.1) mmol/L Calcium 9.0 (8.4-10.2) mg/dL Total Bilirubin 0.5 (0.2-1.3) mg/dL AST 26 (14-36) IU/L ALT 14 (<35) IU/L Alkaline Phosphatase 43 (38-126) U/L Total Protein 6.4 (6.3-8.2) g/dL Albumin 3.4 L (3.5-5.0) g/dL Globulin 3.0 (1.7-4.1) g/dL Albumin/Globulin Ratio 1.1 (1.0-2.8) Lipase 23 (23-300) U/L Procalcitonin 0.90 H (<0.5) ng/mL Urine Color Urine Appearance Urine pH (4.5-8.0) Ur Specific [place] (1.000-1.035) Urine Protein (Negative) Urine Glucose (UA) (Negative) g/dL Urine Ketones (NEGATIVE) Urine Occult Blood (Negative) Urine Nitrate (Negative) Urine Bilirubin (NEGATIVE) Urine Urobilinogen (0.2) E.U./dL Ur Leukocyte Esterase (NEGATIVE) Urine RBC (0-5/HPF) Urine WBC (0-5/HPF) Ur Squamous Epith Cells (0-5/HPF) Ur Renal Epithelial Cell (0-1/HPF) Amorphous Sediment Urine Bacteria (None) Urine Mucus (Negative) Ur Culture Indicated? A. baumannii (PCR) (Not Detect) Demetria albicans (PCR) (Not Detect) C. glabrata (PCR) (Not Detect) C. krusei (PCR) (Not Detect) C. parapsilosis (PCR) (Not Detect) C. tropicalis (PCR) (Not Detect) SARS-CoV-2 (PCR) Negative (Negative) Enterobacteriac sp PCR (Not Detect) E. cloacae complex PCR (Not Detect) Enterococcus sp PCR (Not Detect) E. coli (PCR) (Not Detect) H. influenzae (PCR) (Not Detect) Klebsiella oxytoca PCR (Not Detect) Klebsiella pneumoniae (Not Detect) List. monocytogenes PCR (Not Detect) N. meningitidis (PCR) (Not Detect) Proteus species (PCR) (Not Detect) Serratia marcescens PCR (Not Detect) Staphylococcus sp PCR (Not Detect) Staph aureus (PCR) (Not Detect) mecA-Methicil Res Gene (Not Detect) Streptococcus sp PCR (Not Detect) Group A Strep (PCR) (Not Detect) Strep agalactiae (PCR) (Not Detect) Strep pneumoniae (PCR) (Not Detect) P. aeruginosa (PCR) (Not Detect) Harshil/B-Vanco Res Genes (Not Detect) KPC-Carbap Res Gene PCR (Not Detect) 11/09/20 11/09/20 11/09/20 Range/Units 17:50 17:50 18:16 WBC (4.5-11.0) X10^3/uL RBC (4.0-5.2) X10^6/uL Hgb (12.0-16.0) g/dL Hct (36-46) % MCV (80-100) fL MCH (26-34) PG MCHC (30-36) % RDW (11.6-14.8) % Plt Count (150-400) X10^3/uL Neut % (Auto) (50-75) % Lymph % (Auto) (25-40) % [place] % (Auto) (3-14) % Eos % (Auto) (2-4) % Baso % (Auto) (0-2) % Neut # (Auto) (9755-7392) /uL Lymph # (Auto) (8673-4020) /uL [place] # (Auto) (0-900) /uL Eos # (Auto) (0-450) /uL Baso # (Auto) (0-100) /uL Sodium (137-145) mmol/L Potassium (3.4-5.1) mmol/L Chloride (98-107) mmol/L Carbon Dioxide (22-32) mmol/L BUN (7-17) mg/dL Creatinine (0.52-1.04) mg/dL Estimated GFR (>60) mL/min BUN/Creatinine Ratio (6-22) Glucose (80-110) mg/dL Lactate 1.6 (0.7-2.1) mmol/L Calcium (8.4-10.2) mg/dL Total Bilirubin (0.2-1.3) mg/dL AST (14-36) IU/L ALT (<35) IU/L Alkaline Phosphatase (38-126) U/L Total Protein (6.3-8.2) g/dL Albumin (3.5-5.0) g/dL Globulin (1.7-4.1) g/dL Albumin/Globulin Ratio (1.0-2.8) Lipase (23-300) U/L Procalcitonin (<0.5) ng/mL Urine Color Yellow Urine Appearance Clear Urine pH 5.0 (4.5-8.0) Ur Specific [place] 1.025 (1.000-1.035) Urine Protein Trace H (Negative) Urine Glucose (UA) Negative (Negative) g/dL Urine Ketones Negative (NEGATIVE) Urine Occult Blood Negative (Negative) Urine Nitrate Negative (Negative) Urine Bilirubin Negative (NEGATIVE) Urine Urobilinogen 0.2 (0.2) E.U./dL Ur Leukocyte Esterase Negative (NEGATIVE) Urine RBC None seen (0-5/HPF) Urine WBC 0-1/hpf (0-5/HPF) Ur Squamous Epith Cells 1-5 /hpf (0-5/HPF) Ur Renal Epithelial Cell 0-1/hpf (0-1/HPF) Amorphous Sediment 1+ Urine Bacteria None seen (None) Urine Mucus 1+ H (Negative) Ur Culture Indicated? Cult not indicated A. baumannii (PCR) (Not Detect) Demetria albicans (PCR) (Not Detect) C. glabrata (PCR) (Not Detect) C. krusei (PCR) (Not Detect) C. parapsilosis (PCR) (Not Detect) C. tropicalis (PCR) (Not Detect) SARS-CoV-2 (PCR) Negative (Negative) Enterobacteriac sp PCR (Not Detect) E. cloacae complex PCR (Not Detect) Enterococcus sp PCR (Not Detect) E. coli (PCR) (Not Detect) H. influenzae (PCR) (Not Detect) Klebsiella oxytoca PCR (Not Detect) Klebsiella pneumoniae (Not Detect) List. monocytogenes PCR (Not Detect) N. meningitidis (PCR) (Not Detect) Proteus species (PCR) (Not Detect) Serratia marcescens PCR (Not Detect) Staphylococcus sp PCR (Not Detect) Staph aureus (PCR) (Not Detect) mecA-Methicil Res Gene (Not Detect) Streptococcus sp PCR (Not Detect) Group A Strep (PCR) (Not Detect) Strep agalactiae (PCR) (Not Detect) Strep pneumoniae (PCR) (Not Detect) P. aeruginosa (PCR) (Not Detect) Harshil/B-Vanco Res Genes (Not Detect) KPC-Carbap Res Gene PCR (Not Detect) 11/09/20 Range/Units 18:40 WBC (4.5-11.0) X10^3/uL RBC (4.0-5.2) X10^6/uL Hgb (12.0-16.0) g/dL Hct (36-46) % MCV (80-100) fL MCH (26-34) PG MCHC (30-36) % RDW (11.6-14.8) % Plt Count (150-400) X10^3/uL Neut % (Auto) (50-75) % Lymph % (Auto) (25-40) % [place] % (Auto) (3-14) % Eos % (Auto) (2-4) % Baso % (Auto) (0-2) % Neut # (Auto) (7212-5605) /uL Lymph # (Auto) (9140-1059) /uL [place] # (Auto) (0-900) /uL Eos # (Auto) (0-450) /uL Baso # (Auto) (0-100) /uL Sodium (137-145) mmol/L Potassium (3.4-5.1) mmol/L Chloride (98-107) mmol/L Carbon Dioxide (22-32) mmol/L BUN (7-17) mg/dL Creatinine (0.52-1.04) mg/dL Estimated GFR (>60) mL/min BUN/Creatinine Ratio (6-22) Glucose (80-110) mg/dL Lactate (0.7-2.1) mmol/L Calcium (8.4-10.2) mg/dL Total Bilirubin (0.2-1.3) mg/dL AST (14-36) IU/L ALT (<35) IU/L Alkaline Phosphatase (38-126) U/L Total Protein (6.3-8.2) g/dL Albumin (3.5-5.0) g/dL Globulin (1.7-4.1) g/dL Albumin/Globulin Ratio (1.0-2.8) Lipase (23-300) U/L Procalcitonin (<0.5) ng/mL Urine Color Urine Appearance Urine pH (4.5-8.0) Ur Specific [place] (1.000-1.035) Urine Protein (Negative) Urine Glucose (UA) (Negative) g/dL Urine Ketones (NEGATIVE) Urine Occult Blood (Negative) Urine Nitrate (Negative) Urine Bilirubin (NEGATIVE) Urine Urobilinogen (0.2) E.U./dL Ur Leukocyte Esterase (NEGATIVE) Urine RBC (0-5/HPF) Urine WBC (0-5/HPF) Ur Squamous Epith Cells (0-5/HPF) Ur Renal Epithelial Cell (0-1/HPF) Amorphous Sediment Urine Bacteria (None) Urine Mucus (Negative) Ur Culture Indicated? A. baumannii (PCR) Not detected (Not Detect) Demetria albicans (PCR) Not detected (Not Detect) C. glabrata (PCR) Not detected (Not Detect) C. krusei (PCR) Not detected (Not Detect) C. parapsilosis (PCR) Not detected (Not Detect) C. tropicalis (PCR) Not detected (Not Detect) SARS-CoV-2 (PCR) (Negative) Enterobacteriac sp PCR Detected H (Not Detect) E. cloacae complex PCR Not detected (Not Detect) Enterococcus sp PCR Not detected (Not Detect) E. coli (PCR) Not detected (Not Detect) H. influenzae (PCR) Not detected (Not Detect) Klebsiella oxytoca PCR Not detected (Not Detect) Klebsiella pneumoniae Not detected (Not Detect) List. monocytogenes PCR Not detected (Not Detect) N. meningitidis (PCR) Not detected (Not Detect) Proteus species (PCR) Detected H (Not Detect) Serratia marcescens PCR Not detected (Not Detect) Staphylococcus sp PCR Not detected (Not Detect) Staph aureus (PCR) Not detected (Not Detect) mecA-Methicil Res Gene Not detected (Not Detect) Streptococcus sp PCR Not detected (Not Detect) Group A Strep (PCR) Not detected (Not Detect) Strep agalactiae (PCR) Not detected (Not Detect) Strep pneumoniae (PCR) Not detected (Not Detect) P. aeruginosa (PCR) Not detected (Not Detect) Harshil/B-Vanco Res Genes Not detected (Not Detect) KPC-Carbap Res Gene PCR Not detected (Not Detect) Imaging Data Chest x-ray: Radiologist's Impression: [address] [id number] ReportSigned Patient: Juliana Angel EMR#: [id number]: 6Acct:[id number]/Sex: 75 / FDate of Service: 11/09/20Loc: EDAccession Number: [id number] Procedure: XR chest 1V Ordering Provider: Mehnaz Akbar D.O. PROCEDURE: XR CHEST 1V INDICATIONS: suspected sepsis TECHNIQUE: One view of the chest was acquired. COMPARISON: None. FINDINGS: Limited exam due to patient condition and inability to position Surgical changes and devices: None. Lungs and pleura: Coarse interstitial markings throughout the visible lung oliver. Mediastinum: Obscured Bones and chest wall: Rotated, kyphotic, and scoliotic patient. IMPRESSION: Grossly aerated upper lungs with coarse interstitial markings. Dictated by: Madelyn Cortez M.D. on 11/09/2020 at 18:47 Approved by: Madelyn Cortez M.D. on 11/09/2020 at 18:50 ECG Data Attestation: I personally reviewed and interpreted this ECG as follows: Prior ECG tracings: not available for review Interpretation: Sinus rhythm rate of 100 ,SC 142 QRS 122 and QTC of 477. Elevation in lateral leads, left axis deviation, left bundle branch block. No priors for comparison. MDM Narrative Medical decision making narrative: Patient was seen here on the 2nd, she did have a positive procalcitonin and was hypotensive but per her and her family that was her normal baseline. She has reluectant to be admitted and wished return home. We discussed that likely she would need to return with her elevated procalcitonin and I did not think she would improve with oral antibiotcs. Blood cultures are actually negative from that visit wound culture is pansensitive except for tigecycline. And is positive for Proteus mirabilis. On the 2nd which showed soft tissue swelling midline in the lower thoracic spine but no evidence of underlying osteomyelitis that time. Patient is full code after discussion. Patient was started on Levophed. She was evaluated have central line placed but based on her body habitus this line would likely have been unsuccessful even with ultrasound guidance and PICC line service was contacted for placement. Patient was transferred upstairs after this had occurred her blood pressures had continued to improve on a dose of Levophed and she had completed her initial antibiotics. Patient is admitted under Dr. Jones for Dr. Negron who saw patient in the department. Discharge Plan Departure Patient Disposition: Admitted As Inpatient Clinical Impression: Sepsis, Infected wound Admit Date/Time: 11/09/20 20:17 Admit Provider: Rdoo Jones
[2020-11-09 18:26] LABS: Appearance Urine UA CLEAR; Bilirubin Urine UA NEGATIVE (NEGATIVE); Color Urine UA YELLOW; Glucose Urine UA NEGATIVE (Negative); Ketones Urine UA NEGATIVE (NEGATIVE); Leukocyte Esterase Urine UA NEGATIVE (NEGATIVE); Nitrite Urine UA NEGATIVE (Negative); Occult Blood Urine UA NEGATIVE (Negative); Protein Urine UA TRACE (Negative); Specific Gravity Urine UA 1.025 (1.000-1.035); Urobilinogen Urine UA 0.2 E.U./dL (0.2)
[2020-11-09] MEDS: PIPERACILLIN/TAZO 4.5 GM in SODIUM CHLORIDE 0.9% 100 ML 200 ML IV (18:32)
[2020-11-09 18:33] LABS: Lactate (Lactic Acid) 1.6 mmol/L (0.7-2.1)
[2020-11-09 18:34] LABS: Alanine Aminotransferase 14 IU/L (<35); Albumin 3.4 g/dL (3.5-5.0); Albumin Globulin Ratio 1.1 (1.0-2.8); Alkaline Phosphatase 43 U/L (38-126); Aspartate Aminotransferase 26 IU/L (14-36); BUN Creatinine Ratio 19.5 (6-22); Bilirubin Total 0.5 mg/dL (0.2-1.3); Blood Urea Nitrogen 8 mg/dL (7-17); Carbon Dioxide 26 mmol/L (22-32); Chloride 104 mmol/L (98-107); Estimated Glomerular Filt Rate > 60.0 mL/min (>60); Glucose 134 mg/dL (80-110); HEMOLYSIS < 15 (0-50); Lipase 23 U/L (23-300); Potassium 4.3 mmol/L (3.4-5.1); Sodium 136 mmol/L (137-145); Total Protein 6.4 g/dL (6.3-8.2)
[2020-11-09 18:35] LABS: Amorphous Sediment Urine 1+; Culture Indicated Urine Cult Not Indicated; Mucus Urine 1+ (Negative); Renal Epithelial Cells Urine 0-1/HPF (0-1/HPF); Squamous Epithelial Cell Urine 1-5 /HPF (0-5/HPF); WBC Urine 0-1/HPF (0-5/HPF)
[2020-11-09 19:10] LABS: COVID19 - ADMIT (NP swab/PCR) Negative (Negative)
[2020-11-09] MEDS: LACTATED RINGERS 564.15 ML IV (19:24)
[2020-11-09] MEDS: NOREPINEPHRINE 4 MG in DEXTROSE 5% IN WATER 250 ML 30.48 ML IV (19:25)
[2020-11-09] MEDS: VANCOMYCIN 2,000 MG/400 ML PIGGYBACK 200 MG IV (19:42)
--- NOTE | 2020-11-09 21:19 | P.HP_ITS ---
History of Present Illness History of Present Illness Date Patient Seen: 11/09/20 Time Patient Seen: 21:20 Date of Onset of Symptoms: 11/06/20 Chief complaint: fever Narrative: Patient is 75-year-old female with longstanding multiple sclerosis as her primary diagnosis who presents with fever. Apparently she was over the last month developing a lesion on her back. Current when she can feel it because of her MS. She had been having increasing issues with it and was brought in on the to the emergency room. At that time she was seen was felt to be a significant wound and high risk for infection but patient refused to be admitted and she was sent out with outpatient long-term health and wound clinic consultation. Apparently she is overall feels like she has been feeling pretty well up until recently. Apparently she was brought in today because of she had a fever. It is unclear how long this has been going on. Patient herself feels overall good. Has no real complaints. She has no cough. Runny nose. Abdominal pain. She had her bowel movements per in urinary changes. 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 She does not have help until noon on weekends and has been not eating well. States she has only had grapes. She has been trying to take her antibiotics which is clindamycin. She has had no change in urine output. No change in bowel movements. Sometimes she does not feel and so is hard for her to now. Shows no nausea or vomiting she feels like she might be a little fatigued and certainly the emergency room physician feels as if she is at risk. She has chronic urinary incontinence but has no pain. She has been taking her methotrexate daily. She also has a diagnosis of rheumatoid arthritis. Emergency room physician feels as if the wound is somewhat worse. She has no other changes. Patient was presented with a fever and a pressure in the 50s. She was given fluid resuscitation and was unable to continue to have her usual lower blood pressure and Levophed was started. Patient History Family & Social History Social History: Lives at home. Has caretakers. Typically is alone till noon on weekends Safety & Behavioral: Feels Safe in Current Yes Environment Been Physically Hurt or No Threatened By a Person Tobacco & Substance use: Smoking Status Never smoker Substance Use Type does not use Meds Home Medications and Allergies Home Medications Medication Instructions Recorded Confirmed Type Wheelchair: Power Mobility Device ea #1 02/10/16 06/24/20 Rx [bee pollen complex] #0 02/10/16 06/24/20 History [garlic] #0 02/10/16 06/24/20 History [probiotic] #0 02/10/16 06/24/20 History [vitamin d3] #0 02/10/16 06/24/20 History ascorbic acid (vitamin C) 500 mg #0 02/10/16 06/24/20 History tablet folic acid 1 mg tablet #0 02/10/16 06/24/20 History glucosamine sulfate 500 mg capsule #0 02/10/16 06/24/20 History (Genicin) lorazepam 0.5 mg tablet (Ativan) 0.5 mg PO HS #90 tab 02/10/16 06/24/20 History multivitamin (Multiple Vitamins) #0 02/10/16 06/24/20 History vitamin B complex (B #0 02/10/16 06/24/20 History Complex-Vitamin B12) vitamin E 100 unit capsule #0 02/10/16 06/24/20 History alendronate 70 mg tablet (Fosamax) 70 mg PO QWEEK #4 tab 10/11/17 06/24/20 Rx mupirocin 2 % topical ointment 1 applictn TOP BID #30 gram 04/06/18 06/24/20 Rx incontinence supplies #150 each 05/05/18 06/24/20 Rx wheelchair #1 each 07/24/18 06/24/20 Rx methotrexate sodium 2.5 mg tablet 12.5 mg PO .COMPLEX #90 tab 10/09/19 06/24/20 Rx hydroxychloroquine 200 mg tablet 200 mg PO BID #60 tab 01/16/20 06/24/20 Rx (Plaquenil) atorvastatin 40 mg tablet 40 mg PO DAILY #90 tab 02/08/20 06/24/20 Rx prednisone 2.5 mg tablet See Rx Instructions .ROUTE 09/04/20 Rx .COMPLEX #90 tab potassium chloride 10 mEq See Rx Instructions .ROUTE 10/07/20 Rx capsule,extended release .COMPLEX #60 cap clindamycin HCl 300 mg capsule 300 mg PO QID #40 cap 11/03/20 Rx Allergies Allergy/AdvReac Type Severity Reaction Status Date / Time NSAIDS (Non-Steroidal Allergy Mild Verified 06/24/20 09:42 Anti-Inflamma [NSAIDS (NON-STEROIDAL ANTI-INFLAMMA] Review of Systems Review of Systems Narrative: See history and physical Exam Vital Signs (past 8 hours): - 11/09/20 17:30 11/09/20 17:51 11/09/20 17:52 Temperature 100.3 F H Pulse Rate 104 H 99 H 99 H Respiratory Rate 20 27 H 26 H Blood Pressure 94/54 L 92/50 L Pulse Oximetry 94 92 92 11/09/20 17:53 11/09/20 18:00 11/09/20 18:01 Temperature Pulse Rate 98 H 98 H 97 H Respiratory Rate 25 H 33 H 30 H Blood Pressure 79/44 L 81/54 L 74/46 L Pulse Oximetry 93 94 93 11/09/20 18:05 11/09/20 18:10 11/09/20 18:15 Temperature 100.3 F H Pulse Rate 99 H 101 H Respiratory Rate 25 H 24 Blood Pressure 88/55 L 82/52 L Pulse Oximetry 93 94 11/09/20 18:16 11/09/20 18:21 11/09/20 18:30 Temperature Pulse Rate 101 H 99 H 102 H Respiratory Rate 24 31 H 19 Blood Pressure 86/50 L 75/48 L 92/56 L Pulse Oximetry 93 97 95 11/09/20 18:35 11/09/20 18:40 11/09/20 18:45 Temperature Pulse Rate 100 H 101 H 101 H Respiratory Rate 18 21 25 H Blood Pressure 82/45 L 72/42 L 77/49 L Pulse Oximetry 94 95 95 11/09/20 19:00 11/09/20 19:12 11/09/20 19:14 Temperature Pulse Rate 101 H 97 H 97 H Respiratory Rate 35 H 19 26 H Blood Pressure 80/37 L 53/27 L Pulse Oximetry 95 92 92 11/09/20 19:16 11/09/20 19:18 11/09/20 19:20 Temperature Pulse Rate 97 H 96 H 97 H Respiratory Rate 39 H 28 H 28 H Blood Pressure 61/44 L 79/35 L 78/42 L Pulse Oximetry 94 92 95 11/09/20 19:25 11/09/20 19:30 11/09/20 19:33 Temperature Pulse Rate 96 H 96 H 98 H Respiratory Rate 21 19 29 H Blood Pressure 76/39 L 80/35 L 87/53 L Pulse Oximetry 93 93 95 11/09/20 19:35 11/09/20 19:40 11/09/20 19:45 Temperature Pulse Rate 100 H 100 H 101 H Respiratory Rate 21 23 25 H Blood Pressure 92/58 L 96/61 100/53 L Pulse Oximetry 96 96 97 11/09/20 19:50 11/09/20 19:55 11/09/20 20:00 Temperature Pulse Rate 98 H 98 H 98 H Respiratory Rate 23 24 27 H Blood Pressure 92/54 L 95/51 L 94/54 L Pulse Oximetry 95 95 93 11/09/20 20:05 11/09/20 20:10 11/09/20 20:15 Temperature Pulse Rate 99 H 97 H 98 H Respiratory Rate 21 20 23 Blood Pressure 95/48 L 94/46 L 94/46 L Pulse Oximetry 94 94 95 11/09/20 20:20 11/09/20 20:25 11/09/20 20:30 Temperature Pulse Rate 98 H 99 H 97 H Respiratory Rate 21 21 24 Blood Pressure 90/43 L 96/48 L 78/40 L Pulse Oximetry 94 94 93 11/09/20 20:31 11/09/20 20:35 11/09/20 20:40 Temperature Pulse Rate 97 H 96 H 96 H Respiratory Rate 23 21 19 Blood Pressure 86/47 L 74/41 L 98/53 L Pulse Oximetry 93 93 95 11/09/20 20:46 11/09/20 20:50 11/09/20 20:55 Temperature Pulse Rate 97 H 95 H 93 H Respiratory Rate 21 29 H 25 H Blood Pressure 90/48 L 90/54 L 93/49 L Pulse Oximetry 97 96 96 11/09/20 21:00 11/09/20 21:01 11/09/20 21:05 Temperature Pulse Rate 94 H 92 H Respiratory Rate 29 H 24 Blood Pressure 87/50 L 87/50 L 98/57 L Pulse Oximetry 97 11/09/20 21:10 Temperature Pulse Rate 93 H Respiratory Rate 24 Blood Pressure 94/53 L Pulse Oximetry 95 Oxygen Delivery Method Room Air Narrative Exam Narrative: Alert elderly female interactive appropriate in no acute distress. Skin shows no rash. HEENT exam mucous membranes moist. Eyes are PERRLA neck supple without adenopathy JVD or bruits lungs are clear. Heart regular rate and rhythm. Back shows a 8 x 6 cm right upper mid back with some erythematous area around it. No obvious fluctuance some fall small. Positive discharge. Abdomen is soft positive bowel sounds nontender extremities are nontender nonswollen neurologic exam she is certainly intact and the upper part of the exam but minimal lesions of the legs Objective Labs Result Diagrams: 11/09/20 17:50 11/09/20 17:50 Labs: Laboratory Results - last 24 hr 11/09/20 11/09/20 11/09/20 17:25 17:50 17:50 WBC 13.0 H RBC 3.67 L Hgb 11.6 L Hct 35.3 L MCV 96.0 MCH 31.5 MCHC 32.9 RDW 13.1 Plt Count 234 Neut % (Auto) 86.2 H Lymph % (Auto) 4.4 L Bailey % (Auto) 3.5 Eos % (Auto) 3.8 Baso % (Auto) 2.1 H Neut # (Auto) 85853 H Lymph # (Auto) 600 L Bailey # (Auto) 500 Eos # (Auto) 500 H Baso # (Auto) 300 H Sodium 136 L Potassium 4.3 Chloride 104 Carbon Dioxide 26 BUN 8 Creatinine 0.41 L Estimated GFR > 60.0 BUN/Creatinine Ratio 19.5 Glucose 134 H Lactate Calcium 9.0 Total Bilirubin 0.5 AST 26 ALT 14 Alkaline Phosphatase 43 Total Protein 6.4 Albumin 3.4 L Globulin 3.0 Albumin/Globulin Ratio 1.1 Lipase 23 Procalcitonin 0.90 H Urine Color Urine Appearance Urine pH Ur Specific [place] Urine Protein Urine Glucose (UA) Urine Ketones Urine Occult Blood Urine Nitrate Urine Bilirubin Urine Urobilinogen Ur Leukocyte Esterase Urine RBC Urine WBC Ur Squamous Epith Cells Ur Renal Epithelial Cell Amorphous Sediment Urine Bacteria Urine Mucus Ur Culture Indicated? SARS-CoV-2 (PCR) Negative 11/09/20 11/09/20 11/09/20 17:50 17:50 18:16 WBC RBC Hgb Hct MCV MCH MCHC RDW Plt Count Neut % (Auto) Lymph % (Auto) Bailey % (Auto) Eos % (Auto) Baso % (Auto) Neut # (Auto) Lymph # (Auto) Bailey # (Auto) Eos # (Auto) Baso # (Auto) Sodium Potassium Chloride Carbon Dioxide BUN Creatinine Estimated GFR BUN/Creatinine Ratio Glucose Lactate 1.6 Calcium Total Bilirubin AST ALT Alkaline Phosphatase Total Protein Albumin Globulin Albumin/Globulin Ratio Lipase Procalcitonin Urine Color Yellow Urine Appearance Clear Urine pH 5.0 Ur Specific [place] 1.025 Urine Protein Trace H Urine Glucose (UA) Negative Urine Ketones Negative Urine Occult Blood Negative Urine Nitrate Negative Urine Bilirubin Negative Urine Urobilinogen 0.2 Ur Leukocyte Esterase Negative Urine RBC None seen Urine WBC 0-1/hpf Ur Squamous Epith Cells 1-5 /hpf Ur Renal Epithelial Cell 0-1/hpf Amorphous Sediment 1+ Urine Bacteria None seen Urine Mucus 1+ H Ur Culture Indicated? Cult not indicated SARS-CoV-2 (PCR) Negative Assessment & Plan Assessment & Plan narrative: Sepsis with hypotension. No other it in organ in PACS at this time yet. Probable source appears to be infected wound on back. No evidence of urinary abnormality chest x-ray is normal. Exam otherwise seems to be normal. She has no abdominal discomfort or abnormality. She has had no other changes that we can tell. Previous wound culture was positive for Proteus should be pretty pansensitive but will aggressively treat and till we have more better idea. Will place on vanco and Zosyn. Cultures for RD obtained will wound culture and follow from there. Will admit to ICU Hypotension. Continue with Levophed aggressive fluid resuscitation will place Riggs for ability to follow output and will follow closely. Hopefully once we get fluids on board and better control for fax and will be able to discontinue the will fit will see how things go over the next 24 hours. Significant back wound. This certainly concerning issue and 70 his minimally mobile. Will consult wound care tomorrow and re-evaluate. Follow their recommendations. Probable source of infection. Multiple sclerosis. Will continue usual medicines certainly significant. No change. Appears as if she is on 7.5 mg of prednisone. I do not think we need to increase that for infection. DVT prophylaxis will use usual medication Lovenox and re-evaluation. Code status long discussion with patient she would like to be full Disposition patient will be her some time. I suspect better part of this week hopefully will game agent of the in its and will see how things go.
[2020-11-09] MEDS: LACTATED RINGERS 1,000 ML 200 ML IV (23:24)
[2020-11-10] VITALS (60 sets, daily range): BP systolic 77–113; BP diastolic 48–63; PULSE 73–100; RESP 15–40; TEMP 35.8–36.9; O2SAT 90–100; BMI 22.6
--- NOTE | 2020-11-10 00:02 | DI.RAD.S_ITS ---
PROCEDURE: XR CHEST FOR PICC 1V INDICATIONS: picc placement verification COMPARISON: [facility], CR, XR CHEST 1V, 11/09/2020, 18:11. FINDINGS: PICC was placed by the intravenous therapy team from the left side. Fluoroscopic spot film demonstrates the tip of PICC projecting to the area of distal SVC. IMPRESSION: Tip of PICC projects to the area of distal SVC. Dictated by: Oralia Andino MD, PhD on 11/10/2020 at 0:30 Approved by: Oralia Andino MD, PhD on 11/10/2020 at 0:31
[2020-11-10] MEDS: LORazepam 0.5 MG TABLET PO ×2 (01:31→20:13)
[2020-11-10] MEDS: predniSONE 5 MG TABLET 2.5 MG PO ×3 (01:31→20:16)
[2020-11-10] MEDS: LACTATED RINGERS 1,000 ML 200 ML IV ×4 (03:59→20:34)
[2020-11-10 05:14] LABS: Add Manual Diff / Slide Review NO; Basophils Absolute Auto 100 /uL (0-100); Basophils Percent Auto 0.5 % (0-2); Eosinophils Absolute Auto 300 /uL (0-450); Eosinophils Percent Auto 1.9 % (2-4); Hematocrit 35.3 % (36-46); Hemoglobin 11.4 g/dL (12.0-16.0); Lymphocytes Absolute Auto 1200 /uL (1100-4500); Lymphocytes Percent Auto 6.5 % (25-40); Mean Corpuscular HGB Conc 32.3 % (30-36); Mean Corpuscular Hemoglobin 31.1 PG (26-34); Mean Corpuscular Volume 96.4 fL (80-100); Monocytes Absolute Auto 700 /uL (0-900); Monocytes Percent Auto 3.9 % (3-14); Neutrophils Absolute Auto 15800 /uL (1500-7000); Neutrophils Percent Auto 87.2 % (50-75); Platelet Count 263 X10^3/uL (150-400); Red Blood Cell Count 3.66 X10^6/uL (4.0-5.2); Red Cell Distribution Width 13.3 % (11.6-14.8); White Blood Cell Count 18.1 X10^3/uL (4.5-11.0)
[2020-11-10 05:23] LABS: Lactate (Lactic Acid) 0.9 mmol/L (0.7-2.1)
[2020-11-10 05:25] LABS: Alanine Aminotransferase 11 IU/L (<35); Alkaline Phosphatase 42 U/L (38-126); Aspartate Aminotransferase 24 IU/L (14-36); BUN Creatinine Ratio 14.3 (6-22); Bilirubin Total 0.4 mg/dL (0.2-1.3); Blood Urea Nitrogen 5 mg/dL (7-17); Calcium 8.9 mg/dL (8.4-10.2); Carbon Dioxide 23 mmol/L (22-32); Chloride 108 mmol/L (98-107); Estimated Glomerular Filt Rate > 60.0 mL/min (>60); Globulin 2.9 g/dL (1.7-4.1); Glucose 116 mg/dL (80-110); HEMOLYSIS < 15 (0-50); Potassium 4.2 mmol/L (3.4-5.1); Sodium 139 mmol/L (137-145); Total Protein 5.9 g/dL (6.3-8.2)
[2020-11-10 05:41] LABS: Procalcitonin 7.55 ng/mL (<0.5)
--- NOTE | 2020-11-10 06:05 | PC.NURSE ---
Admit/Historian Research Assistant Note-Patient brought to ICU room 228 at 0050, oriented x3, little forgetful, able to answer most admit questions. Levophed gtt infusing at 5mcg/min, SBP 80s-90s, MAP >60, SR/ST, BBB, PACs, afebrile, RR 20s, SpO2 >92% RA. Wound to upper back along right side of spine, dressing from home removed, has small purulent drainage, culture sent, lightly cleansed with saline, Alevyn applied.
[2020-11-10] MEDS: PIPERACILLIN/TAZO 3.375 GM in SODIUM CHLORIDE 0.9% 100 ML 25 ML IV ×3 (07:06→20:17)
[2020-11-10] MEDS: ATORVASTATIN 20 MG TABLET 40 MG PO (08:54)
[2020-11-10] MEDS: ENOXAPARIN 40 MG/0.4 ML SYRINGE SUBCUT (08:55)
[2020-11-10] MEDS: HYDROXYCHLOROQUINE 200 MG TABLET PO ×2 (08:55→20:16)
[2020-11-10] MEDS: DOCUSATE 100 MG CAPSULE PO ×2 (08:55→20:13)
[2020-11-10] MEDS: NOREPINEPHRINE 4 MG in DEXTROSE 5% IN WATER 250 ML 19.05 ML IV (08:56)
[2020-11-10] MEDS: VANCOMYCIN 1,000 MG/200 ML PIGGYBACK 200 MG IV ×2 (09:07→20:14)
--- NOTE | 2020-11-10 09:21 | PM.PN.1 ---
Subjective Subjective Date Patient Seen: 11/10/20 Time Patient Seen: 07:50 Interval history: This morning, the pt reports that she has no overall complaints. She denies any fevers or chills overnight. She denies any significant pain. She is frustrated to have to be in the hospital. Exam Vital Signs (past 8 hours): - 11/10/20 01:30 11/10/20 01:33 11/10/20 01:59 Pulse Rate 91 H 91 H 90 Respiratory Rate 23 17 25 H Blood Pressure 113/60 Pulse Oximetry 98 98 97 11/10/20 02:00 11/10/20 02:30 11/10/20 03:00 Pulse Rate 90 88 93 H Respiratory Rate 25 H 23 23 Blood Pressure 105/56 L 83/48 L 89/55 L Pulse Oximetry 97 97 97 11/10/20 03:30 11/10/20 04:00 11/10/20 04:30 Pulse Rate 100 H 100 H 100 H Respiratory Rate 20 22 22 Blood Pressure 99/63 87/59 L 92/62 Pulse Oximetry 92 95 95 11/10/20 05:00 11/10/20 05:30 11/10/20 05:34 Pulse Rate 97 H 93 H 92 H Respiratory Rate 25 H 19 23 Blood Pressure 93/63 78/50 L 79/51 L Pulse Oximetry 96 94 94 11/10/20 06:00 11/10/20 06:55 11/10/20 07:00 Pulse Rate 94 H 92 H 92 H Respiratory Rate 16 23 19 Blood Pressure 88/53 L 83/56 L Pulse Oximetry 90 L 95 95 11/10/20 07:55 11/10/20 08:00 11/10/20 08:55 Pulse Rate 87 86 90 Respiratory Rate 18 15 Blood Pressure 88/54 L Pulse Oximetry 96 95 97 11/10/20 09:00 11/10/20 09:11 Pulse Rate 87 Respiratory Rate 18 Blood Pressure 90/52 L Pulse Oximetry 96 95 Oxygen Delivery Method Room Air Oxygen Flow Rate 0 Narrative Exam Narrative: Gen: NAD, laying comfortably in bed, severely kyphotic, speaking easily in complete sentences Neck: no LAD CV: RRR, grade 3/6 systolic murmur Resp: clear to auscultation bilaterally Abd: soft, nontender, nondistended, normoactive bowel sounds Ext: no edema Skin: back with 5x6.5cm diameter ulceration, margins pink, thick white exudate covering, surrounded by approximately 2cm of indurated, erythematous, warm area Objective Labs Result Diagrams: 11/10/20 04:50 11/10/20 04:50 Labs: Laboratory Results - last 24 hr 11/09/20 11/09/20 11/09/20 17:25 17:50 17:50 WBC 13.0 H RBC 3.67 L Hgb 11.6 L Hct 35.3 L MCV 96.0 MCH 31.5 MCHC 32.9 RDW 13.1 Plt Count 234 Neut % (Auto) 86.2 H Lymph % (Auto) 4.4 L Ross % (Auto) 3.5 Eos % (Auto) 3.8 Baso % (Auto) 2.1 H Neut # (Auto) 11321 H Lymph # (Auto) 600 L Ross # (Auto) 500 Eos # (Auto) 500 H Baso # (Auto) 300 H Sodium 136 L Potassium 4.3 Chloride 104 Carbon Dioxide 26 BUN 8 Creatinine 0.41 L Estimated GFR > 60.0 BUN/Creatinine Ratio 19.5 Glucose 134 H Lactate Calcium 9.0 Total Bilirubin 0.5 AST 26 ALT 14 Alkaline Phosphatase 43 Total Protein 6.4 Albumin 3.4 L Globulin 3.0 Albumin/Globulin Ratio 1.1 Lipase 23 Procalcitonin 0.90 H Urine Color Urine Appearance Urine pH Ur Specific [place] Urine Protein Urine Glucose (UA) Urine Ketones Urine Occult Blood Urine Nitrate Urine Bilirubin Urine Urobilinogen Ur Leukocyte Esterase Urine RBC Urine WBC Ur Squamous Epith Cells Ur Renal Epithelial Cell Amorphous Sediment Urine Bacteria Urine Mucus Ur Culture Indicated? Nasal Screen MRSA (PCR) SARS-CoV-2 (PCR) Negative 11/09/20 11/09/20 11/09/20 17:50 17:50 18:16 WBC RBC Hgb Hct MCV MCH MCHC RDW Plt Count Neut % (Auto) Lymph % (Auto) Ross % (Auto) Eos % (Auto) Baso % (Auto) Neut # (Auto) Lymph # (Auto) Ross # (Auto) Eos # (Auto) Baso # (Auto) Sodium Potassium Chloride Carbon Dioxide BUN Creatinine Estimated GFR BUN/Creatinine Ratio Glucose Lactate 1.6 Calcium Total Bilirubin AST ALT Alkaline Phosphatase Total Protein Albumin Globulin Albumin/Globulin Ratio Lipase Procalcitonin Urine Color Yellow Urine Appearance Clear Urine pH 5.0 Ur Specific [place] 1.025 Urine Protein Trace H Urine Glucose (UA) Negative Urine Ketones Negative Urine Occult Blood Negative Urine Nitrate Negative Urine Bilirubin Negative Urine Urobilinogen 0.2 Ur Leukocyte Esterase Negative Urine RBC None seen Urine WBC 0-1/hpf Ur Squamous Epith Cells 1-5 /hpf Ur Renal Epithelial Cell 0-1/hpf Amorphous Sediment 1+ Urine Bacteria None seen Urine Mucus 1+ H Ur Culture Indicated? Cult not indicated Nasal Screen MRSA (PCR) SARS-CoV-2 (PCR) Negative 11/10/20 11/10/20 11/10/20 00:55 04:50 04:50 WBC 18.1 H RBC 3.66 L Hgb 11.4 L Hct 35.3 L MCV 96.4 MCH 31.1 MCHC 32.3 RDW 13.3 Plt Count 263 Neut % (Auto) 87.2 H Lymph % (Auto) 6.5 L Ross % (Auto) 3.9 Eos % (Auto) 1.9 L Baso % (Auto) 0.5 Neut # (Auto) 39870 H Lymph # (Auto) 1200 Ross # (Auto) 700 Eos # (Auto) 300 Baso # (Auto) 100 Sodium 139 Potassium 4.2 Chloride 108 H Carbon Dioxide 23 BUN 5 L Creatinine 0.35 L Estimated GFR > 60.0 BUN/Creatinine Ratio 14.3 Glucose 116 H Lactate Calcium 8.9 Total Bilirubin 0.4 AST 24 ALT 11 Alkaline Phosphatase 42 Total Protein 5.9 L Albumin 3.0 L Globulin 2.9 Albumin/Globulin Ratio 1.0 Lipase Procalcitonin 7.55 H Urine Color Urine Appearance Urine pH Ur Specific [place] Urine Protein Urine Glucose (UA) Urine Ketones Urine Occult Blood Urine Nitrate Urine Bilirubin Urine Urobilinogen Ur Leukocyte Esterase Urine RBC Urine WBC Ur Squamous Epith Cells Ur Renal Epithelial Cell Amorphous Sediment Urine Bacteria Urine Mucus Ur Culture Indicated? Nasal Screen MRSA (PCR) Negative for mrsa SARS-CoV-2 (PCR) 11/10/20 04:50 WBC RBC Hgb Hct MCV MCH MCHC RDW Plt Count Neut % (Auto) Lymph % (Auto) Ross % (Auto) Eos % (Auto) Baso % (Auto) Neut # (Auto) Lymph # (Auto) Ross # (Auto) Eos # (Auto) Baso # (Auto) Sodium Potassium Chloride Carbon Dioxide BUN Creatinine Estimated GFR BUN/Creatinine Ratio Glucose Lactate 0.9 Calcium Total Bilirubin AST ALT Alkaline Phosphatase Total Protein Albumin Globulin Albumin/Globulin Ratio Lipase Procalcitonin Urine Color Urine Appearance Urine pH Ur Specific [place] Urine Protein Urine Glucose (UA) Urine Ketones Urine Occult Blood Urine Nitrate Urine Bilirubin Urine Urobilinogen Ur Leukocyte Esterase Urine RBC Urine WBC Ur Squamous Epith Cells Ur Renal Epithelial Cell Amorphous Sediment Urine Bacteria Urine Mucus Ur Culture Indicated? Nasal Screen MRSA (PCR) SARS-CoV-2 (PCR) [facility] Social History household members: none Smoking Status: Never smoker alcohol intake: never Assessment & Plan Assessment & Plan narrative: Pt is a 75yo woman with MS, RA, chronically wheelchair bound and severely kyphotic who presented having failed outpatient therapy for back ulceration. Pt septic on arrival with hypotension not responsive to fluids, now on presssure support with Levophed. No other end-organ damage. Source appears to be back ulceration. Problems: Sepsis with hypotension: Remains on pressure support, 5mcg Levophed. Urine output 1cc/kg/hr. Back ulceration: Failed outpatient therapy. Culture from 11/03 showed hernandez-sensitive proteus, however due to worsening of symptoms concerning for additional bacterial infection. CT completed 11/03 also showed no signs of osteomyelitis. Multiple sclerosis: Stable Rheumatoid arthritis: Stable CV: - Continue mIVF at 200cc/hr for now, will likely titrate down later today as concern for fluid overload. No recent echocardiogram, but no know hx of CHF. - Continue Levophed, titrate as needed Resp: Stable - Continue to monitor for signs of fluid overload ID: Presumed source of infection back ulceration - Continue broad coverage with Vancomycin and Zosyn - F/U wound and blood cultures Skin: - Surgery consulted for consideration of debridement, appreciate care - Attempted to contact wound care for additional recommendations, have thus far been unable to reach Neuro: - Continue Prednisone home dosing Rheum: - Continue home Methotrexate FEN: NPO pending surgical evaluation DVT ppx: Lovenox Code: Reviewed with pt today. Full code. Dispo: Pending return of cultures, improvement hypotension. Anticipate several midnights. Pt does live independently, likely to require SNF stay at d/c. [facility] VTE Deep Vein Thrombosis/Pulmonary Embolism Present on Admission: No
[2020-11-10] MEDS: ACETAMINOPHEN 325 MG TABLET 650 MG PO (09:39)
--- NOTE | 2020-11-10 10:15 | PC.NURSE ---
PT IS A/O X 3 WITH SOME FORGETFULNESS. SHE IS AFEBRILE, DOES REPORT DISCOMFORT TO HER HER BACK WHICH REPOSITIONING AND PO ACETAMINOPHEN HAS BEEN EFFECTIVE. LUNGS ARE COARSE BILAT BASES WITH STRONG MOIST COUGH- SHE DENIES ANY SPUTUM PRODUCTION AND IS NOT REQUIRING O2 ( ROOM AIR SPO2 96%) ABLE TO TAKE PO RX WITH SIPS OF H20 OTHERWISE NPO. 2X LUMEN PICC LINE WITH 2 PIV WELL FOR CONTINUED IVF, ABX, AND PRESSORS- LARGE ULCER TO LEFT OF HER SPINE WITH LARGE PURULENT APPEARING WOUND BED WITH SURROUNDING TISSUE VERY PURPLE IN COLOR- MOD- LARGE AMOUNT OF DRAINAGE TO ALLEVYN WHICH WAS ORIGINALLY CHANGED UPON ARRIVAL TO ROOM ( NOC SHIFT) AND THEN AGAIN APPROX [id number] WITH MD AT BEDSIDE. THOMAS WITH YELLOW CLEAR UOP
--- NOTE | 2020-11-10 13:22 | PC.NURSE ---
Addendum entered by Kolby Abdul R.N. 11/10/20 13:33: Dr. Migdalia gabriel. Reported pt with intermittent desats to 79% during sleep. Pt noted to have shallow RR and mouth breathing at time of desat. Pt easily awakens and sat quickly increases to greater than 95% once awake. No additional orders at this time. Original Note: Dr. Shorty gabriel. Assisted pt to right side lying for back wound assessment. Placed allevyn dsg to coccyx area per Dr. Oro's request. Pt tolerated well.
--- NOTE | 2020-11-10 13:44 | PM.CN ---
History of Present Illness Consult details Date Patient Seen: 11/10/20 Time Patient Seen: 13:44 Chief complaint: fever Reason for consult: pressure ulcer mid back Requesting provider: Vilma Naranjo Narrative: 75 yo female admitted for sepsis with concern for the source being mid back pressure ulcer. Comorbid conditions include MS and RA. She is wheelchair and bed bal. The ulcer was treated by home health but has continued to progress. Meds Home Medications and Allergies Home Medications Medication Instructions Recorded Confirmed Type Wheelchair: Power Mobility Device ea #1 02/10/16 06/24/20 Rx [bee pollen complex] #0 02/10/16 06/24/20 History [garlic] #0 02/10/16 06/24/20 History [probiotic] #0 02/10/16 06/24/20 History [vitamin d3] #0 02/10/16 06/24/20 History ascorbic acid (vitamin C) 500 mg PO DAILY #0 02/10/16 06/24/20 History tablet folic acid 1 mg tablet 1 mg PO DAILY #0 02/10/16 06/24/20 History glucosamine sulfate 500 mg capsule #0 02/10/16 06/24/20 History (Genicin) lorazepam 0.5 mg tablet (Ativan) 0.5 mg PO HS #90 tab 02/10/16 11/10/20 History multivitamin (Multiple Vitamins) #0 02/10/16 06/24/20 History vitamin B complex (B #0 02/10/16 06/24/20 History Complex-Vitamin B12) vitamin E 100 unit capsule #0 02/10/16 06/24/20 History alendronate 70 mg tablet (Fosamax) 70 mg PO QWEEK #4 tab 10/11/17 06/24/20 Rx mupirocin 2 % topical ointment 1 applictn TOP BID #30 gram 04/06/18 06/24/20 Rx incontinence supplies #150 each 05/05/18 06/24/20 Rx wheelchair #1 each 07/24/18 06/24/20 Rx methotrexate sodium 2.5 mg tablet 12.5 mg PO .COMPLEX #90 tab 10/09/19 11/10/20 Rx hydroxychloroquine 200 mg tablet 200 mg PO BID #60 tab 01/16/20 11/10/20 Rx (Plaquenil) atorvastatin 40 mg tablet 40 mg PO DAILY #90 tab 02/08/20 11/10/20 Rx prednisone 2.5 mg tablet See Rx Instructions .ROUTE 09/04/20 11/10/20 Rx .COMPLEX #90 tab potassium chloride 10 mEq See Rx Instructions .ROUTE 10/07/20 Rx capsule,extended release .COMPLEX #60 cap clindamycin HCl 300 mg capsule 300 mg PO QID #40 cap 11/03/20 11/10/20 Rx Allergies Allergy/AdvReac Type Severity Reaction Status Date / Time NSAIDS (Non-Steroidal Allergy Mild Verified 06/24/20 09:42 Anti-Inflamma [NSAIDS (NON-STEROIDAL ANTI-INFLAMMA] Exam Vital Signs (past 8 hours): - 11/10/20 06:00 11/10/20 06:55 11/10/20 07:00 Temperature Pulse Rate 94 H 92 H 92 H Respiratory Rate 16 23 19 Blood Pressure 88/53 L 83/56 L Pulse Oximetry 90 L 95 95 11/10/20 07:55 11/10/20 08:00 11/10/20 08:55 Temperature Pulse Rate 87 86 90 Respiratory Rate 18 15 Blood Pressure 88/54 L Pulse Oximetry 96 95 97 11/10/20 09:00 11/10/20 09:11 11/10/20 10:14 Temperature Pulse Rate 87 80 Respiratory Rate 18 19 Blood Pressure 90/52 L 91/54 L Pulse Oximetry 96 95 97 11/10/20 12:00 11/10/20 12:55 11/10/20 13:00 Temperature 98.5 F Pulse Rate 78 80 88 Respiratory Rate 16 15 16 Blood Pressure 93/59 L 97/61 Pulse Oximetry 97 95 92 Oxygen Delivery Method Room Air Oxygen Flow Rate 0 Const General: cooperative and frail appearing Nutritional Appearance: cachectic Orientation: alert and oriented x3 Other: severe MS with full body weakness, HENMT Head: normocephalic and atraumatic Ears: hearing grossly normal bilaterally Face and sinus: normal facial exam Eyes Sclera: sclerae normal Neck Neck: trachea midline Chest Chest: normal inspection of the chest Resp Effort & Inspection: normal respiratory effort and able to speak in complete sentences Cardio Rate: regular rate Rhythm: regular rhythm GI Inspection: normal to inspection Palpation: soft Back/Spine/Pelvis Other: large pressure ulcer mid back on left. serous drainage, yeast like odor. no evidence of undrained pus. necrotic tissue over wound. Size estimated 8 cm diameter, circular 0.5 cm deep. Neuro General: patient alert and patient oriented x3 Cognition: normal cognition Motor: muscle tone abnormal Extrem General: no pedal edema and muscle atrophy Psych Appearance: grossly normal Attitude: cooperative Judgment: judgment good Objective Labs Result Diagrams: 11/10/20 04:50 11/10/20 04:50 Labs: Laboratory Results - last 24 hr 11/09/20 11/09/20 11/09/20 17:25 17:50 17:50 WBC 13.0 H RBC 3.67 L Hgb 11.6 L Hct 35.3 L MCV 96.0 MCH 31.5 MCHC 32.9 RDW 13.1 Plt Count 234 Neut % (Auto) 86.2 H Lymph % (Auto) 4.4 L [place] % (Auto) 3.5 Eos % (Auto) 3.8 Baso % (Auto) 2.1 H Neut # (Auto) 52623 H Lymph # (Auto) 600 L [place] # (Auto) 500 Eos # (Auto) 500 H Baso # (Auto) 300 H Sodium 136 L Potassium 4.3 Chloride 104 Carbon Dioxide 26 BUN 8 Creatinine 0.41 L Estimated GFR > 60.0 BUN/Creatinine Ratio 19.5 Glucose 134 H Lactate Calcium 9.0 Total Bilirubin 0.5 AST 26 ALT 14 Alkaline Phosphatase 43 Total Protein 6.4 Albumin 3.4 L Globulin 3.0 Albumin/Globulin Ratio 1.1 Lipase 23 Procalcitonin 0.90 H Urine Color Urine Appearance Urine pH Ur Specific [place] Urine Protein Urine Glucose (UA) Urine Ketones Urine Occult Blood Urine Nitrate Urine Bilirubin Urine Urobilinogen Ur Leukocyte Esterase Urine RBC Urine WBC Ur Squamous Epith Cells Ur Renal Epithelial Cell Amorphous Sediment Urine Bacteria Urine Mucus Ur Culture Indicated? Nasal Screen MRSA (PCR) SARS-CoV-2 (PCR) Negative 11/09/20 11/09/20 11/09/20 17:50 17:50 18:16 WBC RBC Hgb Hct MCV MCH MCHC RDW Plt Count Neut % (Auto) Lymph % (Auto) [place] % (Auto) Eos % (Auto) Baso % (Auto) Neut # (Auto) Lymph # (Auto) [place] # (Auto) Eos # (Auto) Baso # (Auto) Sodium Potassium Chloride Carbon Dioxide BUN Creatinine Estimated GFR BUN/Creatinine Ratio Glucose Lactate 1.6 Calcium Total Bilirubin AST ALT Alkaline Phosphatase Total Protein Albumin Globulin Albumin/Globulin Ratio Lipase Procalcitonin Urine Color Yellow Urine Appearance Clear Urine pH 5.0 Ur Specific [place] 1.025 Urine Protein Trace H Urine Glucose (UA) Negative Urine Ketones Negative Urine Occult Blood Negative Urine Nitrate Negative Urine Bilirubin Negative Urine Urobilinogen 0.2 Ur Leukocyte Esterase Negative Urine RBC None seen Urine WBC 0-1/hpf Ur Squamous Epith Cells 1-5 /hpf Ur Renal Epithelial Cell 0-1/hpf Amorphous Sediment 1+ Urine Bacteria None seen Urine Mucus 1+ H Ur Culture Indicated? Cult not indicated Nasal Screen MRSA (PCR) SARS-CoV-2 (PCR) Negative 11/10/20 11/10/20 11/10/20 00:55 04:50 04:50 WBC 18.1 H RBC 3.66 L Hgb 11.4 L Hct 35.3 L MCV 96.4 MCH 31.1 MCHC 32.3 RDW 13.3 Plt Count 263 Neut % (Auto) 87.2 H Lymph % (Auto) 6.5 L [place] % (Auto) 3.9 Eos % (Auto) 1.9 L Baso % (Auto) 0.5 Neut # (Auto) 19943 H Lymph # (Auto) 1200 [place] # (Auto) 700 Eos # (Auto) 300 Baso # (Auto) 100 Sodium 139 Potassium 4.2 Chloride 108 H Carbon Dioxide 23 BUN 5 L Creatinine 0.35 L Estimated GFR > 60.0 BUN/Creatinine Ratio 14.3 Glucose 116 H Lactate Calcium 8.9 Total Bilirubin 0.4 AST 24 ALT 11 Alkaline Phosphatase 42 Total Protein 5.9 L Albumin 3.0 L Globulin 2.9 Albumin/Globulin Ratio 1.0 Lipase Procalcitonin 7.55 H Urine Color Urine Appearance Urine pH Ur Specific [place] Urine Protein Urine Glucose (UA) Urine Ketones Urine Occult Blood Urine Nitrate Urine Bilirubin Urine Urobilinogen Ur Leukocyte Esterase Urine RBC Urine WBC Ur Squamous Epith Cells Ur Renal Epithelial Cell Amorphous Sediment Urine Bacteria Urine Mucus Ur Culture Indicated? Nasal Screen MRSA (PCR) Negative for mrsa SARS-CoV-2 (PCR) 11/10/20 04:50 WBC RBC Hgb Hct MCV MCH MCHC RDW Plt Count Neut % (Auto) Lymph % (Auto) [place] % (Auto) Eos % (Auto) Baso % (Auto) Neut # (Auto) Lymph # (Auto) [place] # (Auto) Eos # (Auto) Baso # (Auto) Sodium Potassium Chloride Carbon Dioxide BUN Creatinine Estimated GFR BUN/Creatinine Ratio Glucose Lactate 0.9 Calcium Total Bilirubin AST ALT Alkaline Phosphatase Total Protein Albumin Globulin Albumin/Globulin Ratio Lipase Procalcitonin Urine Color Urine Appearance Urine pH Ur Specific [place] Urine Protein Urine Glucose (UA) Urine Ketones Urine Occult Blood Urine Nitrate Urine Bilirubin Urine Urobilinogen Ur Leukocyte Esterase Urine RBC Urine WBC Ur Squamous Epith Cells Ur Renal Epithelial Cell Amorphous Sediment Urine Bacteria Urine Mucus Ur Culture Indicated? Nasal Screen MRSA (PCR) SARS-CoV-2 (PCR) Assessment & Plan Assessment & Plan narrative: Necrotic mid back ulcer. Plan: continue current absorbant dressing. OR tomorrow of debridement.
--- NOTE | 2020-11-10 15:26 | CM.DANOTE ---
DCP/Assessment: Reviewed chart. Patient is a 75yr old female admitted to [facility] with fever. PCP is Dr. Negron. Primary payor is 1)[facility] 2)Medicaid. MONORAIL HELPER attempted to meet with patient this afternoon. Patient asleep at time of visit. Per RN, patient currently ICU status. Patient admitted with fever has h/o MS. Per notes, patient resides alone and is w/c bound at baseline due to MS. Patient currently with wound on her back requiring I&D on 11-10-20. It is anticipated that patient will need SNF at time of d/c. Patient has been home alone with minimal care giving assistance. CM team to follow closely for d/c planning. Authorization will need to be obtained from [place] if SNF needed. P: SNF [facility] Discharge Planning/Care Management CM Discharge Assessment Start: 11/10/20 15:22 Freq: Status: Active Protocol: Document 11/10/20 15:23 KJS (Rec: 11/10/20 15:26 KJS [id number]) Discharge Planning Assessment Assigned Personal Investment Adviser KER[facility] Contact Information Emery Angel (daughter) ph# [phone] Advance Directives? Yes: POLST Advance Directives on File Yes History Provided By Medical Record Prior Living Arrangements Apartment/Condo Household Members none Type of transporation used prior to Relies on Others admit Facility Name [facility] From[facility] Willing to Return to Facility? Yes Independent with ADL's No: Wheelchair bound at baseline. Needs Assistance With Home Chores / Shopping Caregiver for Another No DME Already Rented / Owned Wheelchair Comment Reviewing for d/c planning needs. Discharge Plan [facility] Facility Referrals Initiated Other Additional Comment Patient scheduled for debridement of wound on . Patient currently ICU status. Review Status In Process Next Review Type Continued Stay Review
--- NOTE | 2020-11-10 15:41 | DIET.PN ---
Addendum entered by Justine Chowdhury 11/11/20 14:45: Pt s/p I&D with plans for wound vac change on Tuesday. Kitchen sending ONS Mani bid, double protein portions, and fresh fruit cup with each meal to aid wound healing. Original Note: Dietary Progress Note RD screen for pressure ulcer failed OP management. Sending pt ONS Mani bid to support wound healing while allowed POs.
[2020-11-10 20:01] LABS: Acinetobacter baumannii Not Detected (Not Detect); Candida albicans Not Detected (Not Detect); Candida glabrata Not Detected (Not Detect); Candida krusei Not Detected (Not Detect); Candida parapsilosis Not Detected (Not Detect); Candida tropicalis Not Detected (Not Detect); E. coli Not Detected (Not Detect); Enterobacter cloacae complex Not Detected (Not Detect); Enterococcus species Not Detected (Not Detect); Haemophilus influenzae Not Detected (Not Detect); KPC (carbapenem-resist gene) Not Detected (Not Detect); Listeria monocytogenes Not Detected (Not Detect); Methicillin-resistant gene Not Detected (Not Detect); Neisseria meningitidis Not Detected (Not Detect); Pseudomonas aeruginosa Not Detected (Not Detect); Serratia marcescens Not Detected (Not Detect); Staphylococcus species Not Detected (Not Detect); Streptococcus agalactiae (Gr B Not Detected (Not Detect); Streptococcus pneumonia Not Detected (Not Detect); Streptococcus pyogenes (Gr A) Not Detected (Not Detect); Streptococcus species Not Detected (Not Detect); Vancomycin-rest genes A/B Not Detected (Not Detect)
[2020-11-10 22:32] LABS: Proteus species Detected (Not Detect)
[2020-11-10 22:33] LABS: Enterobacteriaceae species Detected (Not Detect)
[2020-11-11] VITALS (96 sets, daily range): BP systolic 75–140; BP diastolic 47–76; PULSE 72–103; RESP 0–40; TEMP 36.2–37.5; O2SAT 38–100
[2020-11-11] MEDS: LACTATED RINGERS 1,000 ML 200 ML IV (02:27)
[2020-11-11] MEDS: PIPERACILLIN/TAZO 3.375 GM in SODIUM CHLORIDE 0.9% 100 ML 25 ML IV ×3 (04:35→20:32)
[2020-11-11 05:18] LABS: Add Manual Diff / Slide Review NO; Basophils Absolute Auto 100 /uL (0-100); Basophils Percent Auto 1.3 % (0-2); Eosinophils Absolute Auto 400 /uL (0-450); Eosinophils Percent Auto 4.1 % (2-4); Hemoglobin 10.6 g/dL (12.0-16.0); Lymphocytes Absolute Auto 1700 /uL (1100-4500); Lymphocytes Percent Auto 19.3 % (25-40); Mean Corpuscular HGB Conc 33.2 % (30-36); Mean Corpuscular Hemoglobin 31.8 PG (26-34); Mean Corpuscular Volume 95.8 fL (80-100); Monocytes Absolute Auto 600 /uL (0-900); Monocytes Percent Auto 6.5 % (3-14); Neutrophils Absolute Auto 6200 /uL (1500-7000); Neutrophils Percent Auto 68.8 % (50-75); Platelet Count 231 X10^3/uL (150-400); Red Blood Cell Count 3.34 X10^6/uL (4.0-5.2); Red Cell Distribution Width 13.1 % (11.6-14.8)
[2020-11-11 05:24] LABS: Alanine Aminotransferase 10 IU/L (<35); Albumin 2.7 g/dL (3.5-5.0); Alkaline Phosphatase 39 U/L (38-126); Aspartate Aminotransferase 27 IU/L (14-36); BUN Creatinine Ratio 15.4 (6-22); Bilirubin Total 0.1 mg/dL (0.2-1.3); Blood Urea Nitrogen 6 mg/dL (7-17); Calcium 8.8 mg/dL (8.4-10.2); Carbon Dioxide 27 mmol/L (22-32); Chloride 109 mmol/L (98-107); Estimated Glomerular Filt Rate > 60.0 mL/min (>60); Globulin 2.6 g/dL (1.7-4.1); Glucose 98 mg/dL (80-110); HEMOLYSIS < 15 (0-50); Sodium 139 mmol/L (137-145); Total Protein 5.3 g/dL (6.3-8.2)
--- NOTE | 2020-11-11 06:50 | PC.NURSE ---
Patient was able to sleep most of the shift. Levo gtt is at 1mcg/min at this time. Last BP 119/66. Drsg to back CDI. Patient has been A&O, calm and cooperative.
[2020-11-11 08:12] LABS: Vancomycin Trough 14.2 ug/mL (10-20)
--- NOTE | 2020-11-11 08:13 | P.PN_ITS ---
Subjective Subjective Date Patient Seen: 11/11/20 Time Patient Seen: 08:05 Interval history: The pt reports that she is feeling very achy this morning. She believes it is from sleeping on cords. She denies any significant back pain. She is otherwise feeling well. Exam Vital Signs (past 8 hours): - 11/11/20 00:26 11/11/20 00:29 11/11/20 00:30 Temperature Pulse Rate 85 86 86 Respiratory Rate 23 36 H Blood Pressure 99/58 L 99/58 L Pulse Oximetry 94 96 11/11/20 00:44 11/11/20 01:00 11/11/20 01:30 Temperature Pulse Rate 84 86 92 H Respiratory Rate 24 23 18 Blood Pressure 100/50 L 92/53 L Pulse Oximetry 94 94 91 11/11/20 02:00 11/11/20 02:01 11/11/20 02:30 Temperature Pulse Rate 86 86 87 Respiratory Rate 23 21 22 Blood Pressure 102/57 L Pulse Oximetry 93 93 95 11/11/20 02:52 11/11/20 03:00 11/11/20 03:23 Temperature Pulse Rate 92 H 89 87 Respiratory Rate 21 19 22 Blood Pressure 110/61 116/63 100/57 L Pulse Oximetry 91 85 L 95 11/11/20 03:30 11/11/20 03:45 11/11/20 03:47 Temperature Pulse Rate 86 82 82 Respiratory Rate 22 20 Blood Pressure 100/57 L 80/50 L Pulse Oximetry 94 91 11/11/20 03:48 11/11/20 03:59 11/11/20 04:00 Temperature Pulse Rate 82 82 82 Respiratory Rate 20 20 Blood Pressure 80/50 L 103/54 L Pulse Oximetry 94 92 92 11/11/20 04:22 11/11/20 04:25 11/11/20 04:30 Temperature Pulse Rate 83 86 96 H Respiratory Rate 18 17 Blood Pressure 113/66 113/66 Pulse Oximetry 90 L 88 L 11/11/20 04:38 11/11/20 04:56 11/11/20 05:00 Temperature Pulse Rate 93 H 86 87 Respiratory Rate 21 24 23 Blood Pressure 120/56 L 101/58 L 114/65 Pulse Oximetry 91 92 91 11/11/20 05:14 11/11/20 05:30 11/11/20 05:50 Temperature 97.4 F L Pulse Rate 84 89 Respiratory Rate 0 L 22 Blood Pressure 124/69 Pulse Oximetry 90 L 93 11/11/20 06:00 Temperature Pulse Rate 86 Respiratory Rate 21 Blood Pressure 123/68 Pulse Oximetry 94 Oxygen Delivery Method Room Air Oxygen Flow Rate 10 Objective Labs Result Diagrams: 11/11/20 04:50 11/11/20 04:50 Labs: Laboratory Results - last 24 hr 11/09/20 11/11/20 11/11/20 18:40 04:50 04:50 WBC 9.0 D RBC 3.34 L Hgb 10.6 L Hct 32.0 L MCV 95.8 MCH 31.8 MCHC 33.2 RDW 13.1 Plt Count 231 Neut % (Auto) 68.8 Lymph % (Auto) 19.3 L [place] % (Auto) 6.5 Eos % (Auto) 4.1 H Baso % (Auto) 1.3 Neut # (Auto) 6200 Lymph # (Auto) 1700 [place] # (Auto) 600 Eos # (Auto) 400 Baso # (Auto) 100 Sodium 139 Potassium 4.0 Chloride 109 H Carbon Dioxide 27 BUN 6 L Creatinine 0.39 L Estimated GFR > 60.0 BUN/Creatinine Ratio 15.4 Glucose 98 Calcium 8.8 Total Bilirubin 0.1 L AST 27 ALT 10 Alkaline Phosphatase 39 Total Protein 5.3 L Albumin 2.7 L Globulin 2.6 Albumin/Globulin Ratio 1.0 Vancomycin Trough A. baumannii (PCR) Not detected Demetria albicans (PCR) Not detected C. glabrata (PCR) Not detected C. krusei (PCR) Not detected C. parapsilosis (PCR) Not detected C. tropicalis (PCR) Not detected Enterobacteriac sp PCR Detected H E. cloacae complex PCR Not detected Enterococcus sp PCR Not detected E. coli (PCR) Not detected H. influenzae (PCR) Not detected Klebsiella oxytoca PCR Not detected Klebsiella pneumoniae Not detected List. monocytogenes PCR Not detected N. meningitidis (PCR) Not detected Proteus species (PCR) Detected H Serratia marcescens PCR Not detected Staphylococcus sp PCR Not detected Staph aureus (PCR) Not detected mecA-Methicil Res Gene Not detected Streptococcus sp PCR Not detected Group A Strep (PCR) Not detected Strep agalactiae (PCR) Not detected Strep pneumoniae (PCR) Not detected P. aeruginosa (PCR) Not detected Harshil/B-Vanco Res Genes Not detected KPC-Carbap Res Gene PCR Not detected 11/11/20 07:40 WBC RBC Hgb Hct MCV MCH MCHC RDW Plt Count Neut % (Auto) Lymph % (Auto) [place] % (Auto) Eos % (Auto) Baso % (Auto) Neut # (Auto) Lymph # (Auto) [place] # (Auto) Eos # (Auto) Baso # (Auto) Sodium Potassium Chloride Carbon Dioxide BUN Creatinine Estimated GFR BUN/Creatinine Ratio Glucose Calcium Total Bilirubin AST ALT Alkaline Phosphatase Total Protein Albumin Globulin Albumin/Globulin Ratio Vancomycin Trough 14.2 A. baumannii (PCR) Demetria albicans (PCR) C. glabrata (PCR) C. krusei (PCR) C. parapsilosis (PCR) C. tropicalis (PCR) Enterobacteriac sp PCR E. cloacae complex PCR Enterococcus sp PCR E. coli (PCR) H. influenzae (PCR) Klebsiella oxytoca PCR Klebsiella pneumoniae List. monocytogenes PCR N. meningitidis (PCR) Proteus species (PCR) Serratia marcescens PCR Staphylococcus sp PCR Staph aureus (PCR) mecA-Methicil Res Gene Streptococcus sp PCR Group A Strep (PCR) Strep agalactiae (PCR) Strep pneumoniae (PCR) P. aeruginosa (PCR) Harshil/B-Vanco Res Genes KPC-Carbap Res Gene PCR [facility] Social History household members: none Smoking Status: Never smoker alcohol intake: never Assessment & Plan Assessment & Plan narrative: Pt is a 75yo woman with MS, RA, chronically wheelchair bound and severely kyphotic who presented having failed outpatient therapy for back ulceration. Pt with septic shock on arrival with hypotension not responsive to fluids, now on presssure support with Levophed. No other end- organ damage. Source appears to be back ulceration. Problems: Sepsis with hypotension: Remains on pressure support, 5mcg Levophed. Urine output 1cc/kg/hr. Back ulceration: Failed outpatient therapy. Culture from 11/03 showed hernandez- sensitive proteus, however due to worsening of symptoms concerning for additional bacterial infection. CT completed 11/03 also showed no signs of oste omyelitis. Multiple sclerosis: Stable Rheumatoid arthritis: Stable CV: - mIVF at 150cc/hr for now, plan to decrease to 100cc/hr after surgery if pressures allow. No recent echocardiogram, but no know hx of CHF. - Continue Levophed, titrate as needed. Goal to titrate off this morning. Resp: Stable - Continue to monitor for signs of fluid overload ID: Presumed source of infection back ulceration. Culture again growing proteus, and diphtheroids as well. - Continue broad coverage with Vancomycin and Zosyn - F/U wound and blood cultures Skin: - Surgery consulted for consideration of debridement, appreciate care - Plan for OR today Neuro: - Continue Prednisone home dosing Rheum: - Methotrexate currently held FEN: NPO pending surgery this afternoon DVT ppx: Lovenox Code: Full code. Dispo: Pt does live independently, likely to require SNF stay at d/c. [facility] VTE Deep Vein Thrombosis/Pulmonary Embolism Present on Admission: No
[2020-11-11] MEDS: ACETAMINOPHEN 325 MG TABLET 650 MG PO (08:56)
[2020-11-11] MEDS: LACTATED RINGERS 1,000 ML 150 ML IV (08:56)
[2020-11-11] MEDS: VANCOMYCIN 1,000 MG/200 ML PIGGYBACK 200 MG IV ×2 (08:56→20:38)
[2020-11-11] MEDS: VANCOMYCIN TROUGH 1 REQUEST MISC (08:57)
[2020-11-11] MEDS: VANCOMYCIN PEAK 1 REQUEST MISC (10:13)
--- NOTE | 2020-11-11 11:37 | PC.NURSE ---
Addendum entered by Brittani Brown R.N. 11/11/20 14:58: PT RECEIVED BACK TO ROOM AT 1302, WOUND VAC IN PLACE WITH SOME BLOODY DRAINAGE NOTED IN TUBING SUCTION AT 125- DENIES PAIN DRESSING CHANGED TO PICC LINE AND IVF 125/H AND OFF LEVOPHED AT THIS TIME Addendum entered by Brittani Brown R.N. 11/11/20 11:41: ORDERED REDRAW OF VANCO PEAK DUE TO MIS TIMED DRAW- ADÁN, PACU SAID SHE WILL DRAW FROM PICC LINE AND SEND TO LAB- REORDERED IN [employer] Original Note: PT RESTARTED ON LEVOPHED OVER NOC SHIFT DUE TO HYPOTENSION- WAS ABLE TO WEAN HER OFF PRIOR TO HEADING DOWN TO OR FOR LEFT SHOULDER/BACK DEBRIDEMENT ( 11AM) LAST BP ON FLOOR WAS 86/53 WITH MAP 64- DRESSING SOILED WITH PURURLENT ODOROUS DRAINAGE- SHE REFUSED SCD'S AND IS FORGETFUL BUT MOSTLY ORIENTED, WE DID SPEAK OF POTENTIAL NEED FOR SNF/REHAB POST THIS HOSPITALIZATION- SHE DISLIKED THIS IDEA BUT WAS ACCEPTING OF FACTS-
--- NOTE | 2020-11-11 11:48 | SUR.OPER ---
Right Lateral on a inpatient bed, head on pillow, bottom leg bent, upper leg straight and supported with pillows. Upper arm supported by pillows, Safety rails up on right side of bed (patient's right).
[2020-11-11] MEDS: BUPIVACAINE 0.25% W/ EPI 30 ML VIAL INJ (11:58)
--- NOTE | 2020-11-11 12:16 | PM.OP.1 ---
Operative Date/Time/Diagnoses Date of procedure: 11/11/20 Time of procedure: 12:16 Pre-op diagnosis: pressure ulcer left upper back Post-op diagnosis: same Procedure & Clinicians Procedure: debridement of 9 cm x 6 cm x 1 cm wound left upper back using 10 blade and scissors. Skin and subcutaneous tissue removed. muscle exposed. Same procedure as scheduled: Yes Indications: pressure ulcer Surgeon: Elizabeth Oro Click Yes if Unassisted: Yes Anesthesia Type: General Operative Notes Findings: escar that was overlying a deeper pocket that was w/o pus. Closure Type: not applicable Specimen(s): other (tissue culture) Prosthetic devices, grafts, tissues, transplants, or devices: wound vac placed. # sponge pieces total, one in the deep pocket, one superficial and one as a bridge Estimated Blood Loss (mL): 25 Blood products transfused: none Procedure in detail: Patient was prepped and draped in sterile fashion. I began with an 10 blade unroofing and debriding devitalized tissue from the wound that measured 9 cm x 6 cm x 1 cm in the left upper back. I was able to get back to healthy/bleeding tissue. But there still seemed to be a firmness and unaddressed deeper pocket. At that point I debrided further into the center of the wound and entered into a pocket beneath. No pus drained. Necrotic tissue was visible. Muscle also visible but viable. Fingers sweep revealed this area to be the 9 cm x 6 cm x 1 cm dimensions. The more superficial component is 7 cm x 4 cm x 0.5 cm. I placed a customized course black sponge into the deeper pocket, another customized sponge in the more superficial tissue, and used a 3rd sponge to create a bridge out to her left lateral side. We had good containment no leaks when the system was connected and complete. Patient was awakened, extubated, taken to recovery room in stable condition. Needle, instrument, sponge counts were correct. Blood loss: 25 mL Specimen: Tissue culture Complications: none Post-operative Condition: stable Disposition: PACU Plan for aftercare: wound vac change on Tuesday.
[2020-11-11 12:19] LABS: Vancomycin Peak 26.5 ug/mL (20-40)
[2020-11-11] MEDS: LACTATED RINGERS 1,000 ML 42 ML IV (12:47)
[2020-11-11] MEDS: NOREPINEPHRINE 4 MG in DEXTROSE 5% IN WATER 250 ML IV (18:39)
[2020-11-11] MEDS: predniSONE 5 MG TABLET 2.5 MG PO (20:32)
[2020-11-11] MEDS: DOCUSATE 100 MG CAPSULE PO (20:33)
[2020-11-11] MEDS: HYDROXYCHLOROQUINE 200 MG TABLET PO (20:35)
[2020-11-11] MEDS: LORazepam 0.5 MG TABLET PO (20:35)
[2020-11-11] MEDS: LACTATED RINGERS 1,000 ML 125 ML IV (20:38)
[2020-11-12 00:58] VITALS: BP 100/59; PULSE 90; RESP 22; TEMP 36.3; O2SAT 95
[2020-11-12] MEDS: PIPERACILLIN/TAZO 3.375 GM in SODIUM CHLORIDE 0.9% 100 ML 25 ML IV ×3 (05:02→22:06)
[2020-11-12] MEDS: LACTATED RINGERS 1,000 ML 125 ML IV (05:03)
[2020-11-12 06:00] VITALS: BP 103/57; PULSE 85; RESP 14; TEMP 36.9; O2SAT 94
[2020-11-12 06:01] LABS: Add Manual Diff / Slide Review NO; Basophils Absolute Auto 300 /uL (0-100); Basophils Percent Auto 3.2 % (0-2); Eosinophils Absolute Auto 500 /uL (0-450); Eosinophils Percent Auto 5.5 % (2-4); Hematocrit 31.3 % (36-46); Hemoglobin 10.3 g/dL (12.0-16.0); Lymphocytes Absolute Auto 1100 /uL (1100-4500); Lymphocytes Percent Auto 11.7 % (25-40); Mean Corpuscular HGB Conc 32.8 % (30-36); Mean Corpuscular Hemoglobin 31.3 PG (26-34); Mean Corpuscular Volume 95.3 fL (80-100); Monocytes Absolute Auto 400 /uL (0-900); Monocytes Percent Auto 4.3 % (3-14); Neutrophils Absolute Auto 7200 /uL (1500-7000); Neutrophils Percent Auto 75.3 % (50-75); Platelet Count 245 X10^3/uL (150-400); Red Blood Cell Count 3.29 X10^6/uL (4.0-5.2); Red Cell Distribution Width 13.4 % (11.6-14.8); White Blood Cell Count 9.5 X10^3/uL (4.5-11.0)
[2020-11-12 06:06] LABS: Alanine Aminotransferase 11 IU/L (<35); Albumin 2.7 g/dL (3.5-5.0); Alkaline Phosphatase 37 U/L (38-126); Aspartate Aminotransferase 27 IU/L (14-36); BUN Creatinine Ratio 20.7 (6-22); Bilirubin Total 0.1 mg/dL (0.2-1.3); Blood Urea Nitrogen 6 mg/dL (7-17); Calcium 8.8 mg/dL (8.4-10.2); Carbon Dioxide 30 mmol/L (22-32); Chloride 104 mmol/L (98-107); Estimated Glomerular Filt Rate > 60.0 mL/min (>60); Globulin 2.6 g/dL (1.7-4.1); Glucose 90 mg/dL (80-110); HEMOLYSIS < 15 (0-50); Potassium 3.7 mmol/L (3.4-5.1); Sodium 137 mmol/L (137-145); Total Protein 5.3 g/dL (6.3-8.2)
--- NOTE | 2020-11-12 06:06 | PC.NURSE ---
Gas Leak Tester Note-Levophed gtt off at 0100, BP 101/63(77), remained 90s/50s MAP >65 throughout night. Wound patent with small sang output.
[2020-11-12 07:46] VITALS: BP 88/51; PULSE 84; RESP 24; TEMP 37.4; O2SAT 96
[2020-11-12] MEDS: VANCOMYCIN 1,000 MG/200 ML PIGGYBACK 200 MG IV ×2 (08:21→20:39)
[2020-11-12] MEDS: ENOXAPARIN 40 MG/0.4 ML SYRINGE SUBCUT (08:21)
[2020-11-12] MEDS: ATORVASTATIN 20 MG TABLET 40 MG PO (08:22)
[2020-11-12] MEDS: DOCUSATE 100 MG CAPSULE PO (08:22)
[2020-11-12] MEDS: predniSONE 5 MG TABLET PO (08:22)
[2020-11-12] MEDS: ACETAMINOPHEN 325 MG TABLET 650 MG PO (08:25)
--- NOTE | 2020-11-12 08:46 | PM.PN.1 ---
Subjective Subjective Date Patient Seen: 11/12/20 Time Patient Seen: 08:00 Interval history: The pt reports feeling well this morning. Her appetite is returning. She has no specific concerns. She denies any back pain. Exam Vital Signs (past 8 hours): - 11/12/20 00:58 11/12/20 06:00 11/12/20 07:46 Temperature 97.4 F L 98.5 F 99.4 F Pulse Rate 90 85 84 Respiratory Rate 22 14 24 Blood Pressure 100/59 L 103/57 L 88/51 L Pulse Oximetry 95 94 96 Oxygen Delivery Method Room Air Oxygen Flow Rate 0 Narrative Exam Narrative: Gen: NAD, sitting comfortably in bed drinking her coffee, appears well CV: RRR, grade 3/6 systolic murmur Resp: clear to auscultation bilaterally Abd: soft, nontender, nondistended, normoactive bowel sounds Ext: no edema Skin: back with wound vac in place with appropriate suction, surrounding erythema stable, minimal serosanguinous drainage Objective Labs Result Diagrams: 11/12/20 05:30 11/12/20 05:30 Labs: Laboratory Results - last 24 hr 11/11/20 11/11/20 11/12/20 10:10 11:26 05:30 WBC 9.5 RBC 3.29 L Hgb 10.3 L Hct 31.3 L MCV 95.3 MCH 31.3 MCHC 32.8 RDW 13.4 Plt Count 245 Neut % (Auto) 75.3 H Lymph % (Auto) 11.7 L Fajardo % (Auto) 4.3 Eos % (Auto) 5.5 H Baso % (Auto) 3.2 H Neut # (Auto) 7200 H Lymph # (Auto) 1100 Fajardo # (Auto) 400 Eos # (Auto) 500 H Baso # (Auto) 300 H Sodium Potassium Chloride Carbon Dioxide BUN Creatinine Estimated GFR BUN/Creatinine Ratio Glucose Calcium Total Bilirubin AST ALT Alkaline Phosphatase Total Protein Albumin Globulin Albumin/Globulin Ratio Vancomycin Peak 45.0 H* 26.5 11/12/20 05:30 WBC RBC Hgb Hct MCV MCH MCHC RDW Plt Count Neut % (Auto) Lymph % (Auto) Fajardo % (Auto) Eos % (Auto) Baso % (Auto) Neut # (Auto) Lymph # (Auto) Fajardo # (Auto) Eos # (Auto) Baso # (Auto) Sodium 137 Potassium 3.7 Chloride 104 Carbon Dioxide 30 BUN 6 L Creatinine 0.29 L Estimated GFR > 60.0 BUN/Creatinine Ratio 20.7 Glucose 90 Calcium 8.8 Total Bilirubin 0.1 L AST 27 ALT 11 Alkaline Phosphatase 37 L Total Protein 5.3 L Albumin 2.7 L Globulin 2.6 Albumin/Globulin Ratio 1.0 Vancomycin Peak PFSH Social History household members: none Smoking Status: Never smoker alcohol intake: never Assessment & Plan Assessment & Plan narrative: Pt is a 75yo woman with MS, RA, chronically wheelchair bound and severely kyphotic who presented having failed outpatient therapy for back ulceration. Pt with septic shock on arrival with hypotension not responsive to fluids, needing pressure support with levophed. No other end-organ damage. Source appears to be back ulceration. Problems: Sepsis with hypotension: Resolving. Intermittently on small doses of Levophed overnight. Urine output Remains on pressure support, 5mcg Levophed. Urine output adequate at 1-2cc/kg/hr. Back ulceration: Failed outpatient therapy. Culture from 11/03 showed hernandez-sensitive proteus, however due to worsening of symptoms concerning for additional bacterial infection. CT completed 11/03 also showed no signs of osteomyelitis. S/P debridement in the OR yesterday, revealing of deeper involvement than originally anticipated. Wound vac now in place. Multiple sclerosis: Stable Rheumatoid arthritis: Stable CV: - mIVF at 75cc/hr for now. If pressures hold, then plan to d/c as pt taking adequate PO - Continue of Levophed for now, may need to titrate back on dependent on BPs. Resp: Stable - Continue to monitor for signs of fluid overload ID: Presumed source of infection back ulceration. Culture again growing proteus, and diphtheroids as well, from blood and wound. Culture from debridement yesterday pending. - Continue broad coverage with Vancomycin and Zosyn until culture from yesterday returns. Skin: - Surgery consulted, appreciate ongoing care and recommendations. - Plan for wound vac change on 11/14 Neuro: - Continue Prednisone home dosing Rheum: - Methotrexate currently held FEN: General diet DVT ppx: Lovenox Code: Full code. Dispo: Pt does live independently. Discussed with care management, will require SNF at discharge likely for ongoing wound management. Long-term would benefit from at least assisted living. Quality VTE Deep Vein Thrombosis/Pulmonary Embolism Present on Admission: No
[2020-11-12] MEDS: HYDROXYCHLOROQUINE 200 MG TABLET PO ×2 (08:50→20:39)
[2020-11-12 11:00] VITALS: BP 111/64; PULSE 83; RESP 18; TEMP 37.3; O2SAT 92
--- NOTE | 2020-11-12 11:15 | PT.IIE ---
Current Diagnoses Sepsis, unspecified organism (11/09/20) Surgery Performed Operation Date: 11/11/20 12:30 Actual Procedures p I&D back with wound vac - Elizabeth Oro MD Physical Therapy Inpatient Evaluation/Re-Eval M1 PT/OT-IP Prior Functional Status Start: 11/12/20 12:33 Freq: NEEDED Status: Active Protocol: Document 11/12/20 11:15 AB (Rec: 11/12/20 12:53 AB [email or web address]) Medical Review Prior Functional Status Medical History Reviewed Yes Communication able to make needs known Mobility and Gait pt stated that she is non- ambulatory and unable to stand . stated that she spends most of the day on her recliner and sleeps on her recliner. stated that she has a caregiver that comes in 9-12 and assists her to use the toilet. pt stated that her caregiver picks her up and she holds on the her caregiver's neck and transfer her on to bedside commode. pt stated that she sits on her recliner until her next caregiver gets her ready for the night from 5 -7. pt stated that she does is incontinent and her caregiver assists her with hygiene care. stated that she has not taken a shower for a long time since she cannot get into the shower and she only takes sponge bathes. Social History Household Members none Living Arrangements Apartment/Condo Number of Stairs To Enter/Railing? pt lives on a 3rd floor apartment with an elevator to get to her floor Home Environment Standard Height Toilet,Tub/ Shower,Elevator Home Equipment Manual Wheelchair,Bedside Commode,Grab Bars Near Toilet M2 PT-IP Current Condition Start: 11/12/20 12:33 Freq: NEEDED Status: Active Protocol: Document 11/12/20 11:15 AB (Rec: 11/12/20 12:53 AB [id number]) Physical Therapy Current Condition Current Condition Evaluation Date 11/12/20 Treatment Diagnosis sepsis; back wound; MS; generalized weakness Onset Date 11/09/20 M3 PT-IP Subjective Start: 11/12/20 12:33 Freq: NEEDED Status: Active Protocol: Document 11/12/20 11:15 AB (Rec: 11/12/20 12:53 AB [email or web address]) Subjective Physical Therapy Visit Type Type Initial Evaluation Visit Start Time 11:15 Visit Stop Time 11:55 Total Visit Minutes 40 Number of SHALE PLANER OPERATOR Visits 0 Physical Therapy Visit Comments Patient Comments pt stated that she does not see the point of doing PT but agreed to mobilize Therapy Pain Assessment Pain Present Pain Present Denied Pain M4 PT-IP Mobility and Gait Start: 11/12/20 12:33 Freq: NEEDED Status: Active Protocol: Document 11/12/20 11:15 AB (Rec: 11/12/20 12:53 AB [email or web address]) PT-Bed Mobility Assessment Supine to Sit Supine to Sit Total Assistance,2 Person Assistance,Head of Bed Elevated,Bedrails Sit to Supine Sit to Supine Total Assistance,2 Person Assistance,Head of Bed Elevated Scooting Scooting to Edge of Bed Dependent PT-Transfer Assessment Comments Mobility Comments pt completed supine to sit total A x 2 with HOB elevated . pt sat on EOB max A x 1-2 and max cues and required mod A after positioning. . presents with poor trunk control with increase lateral trunk lean to the L and scoliosis noted with increase thoracic kyphosis. At this point, decided to put pt back in bed for safety as pt is dependent and will not be able to complete a transfer safely . assisted pt back to bed total A x 2. positioned pt in bed total A x 2. informed pt regarding PT risks /benefits and pt stated that she does not see the point of doing PT. stated that she has MS and has been getting worse and that she has not been able to stand for a long time and will need somebody to pick her up to transfer. pt will require LTC placement. PT-Balance Assessment Sitting Balance and Reactions Static Sitting Balance Ability Poor Dynamic Sitting Balance Ability Poor M5 PT-IP Objective Assessments Start: 11/12/20 12:33 Freq: NEEDED Status: Active Protocol: Document 11/12/20 11:15 AB (Rec: 11/12/20 12:53 AB [id number]) Orientation Orientation/Cognition Level of Alertness Alert Orientation Name,Place,Situation Gross Range of Motion Lower Extremity ROM Impairments LLE rigidity B ankle PF contracture Strength Lower Extremity Strength Assessment Bilaterally Impaired Comments Strength Comments RLE: 3-/5 LLE: 2-/5 Muscle Tone Muscle Tone WNL No Other Assessments Other Other Assessments LLE rigidity M6 PT-IP Treatment Start: 11/12/20 12:33 Freq: NEEDED Status: Active Protocol: Document 11/12/20 11:15 AB (Rec: 11/12/20 12:53 [email or web address]) Physical Therapy Treatment Education Education Provided Safety M7 PT-IP Assessment and Plan Start: 11/12/20 12:33 Freq: NEEDED Status: Active Protocol: Document 11/12/20 11:15 (Rec: 11/12/20 12:53 [email or web address]) PT Summary Assessment and Plan Summary Assessment Summary PT eval completed. No further PT intervention indicated at this time. Pt stated that she has not been able to ambulate for a long time or has she been able to stand. caregiver picks her up and pivots her to transfer needing total A. Pt also refuse to have PT and stated that she tried it before and does not seen any change. informed nurse and case finisher regarding pt's mobility and no further PT needed at this time. Frequency of Treatment Frequency Of Treatment Discharge Recommendations To Nursing Amount of Assist Needed Mechanical Lift Discharge Recommendations PT Discharge Recommendations SNF Rehab Other Discharge Recommendations LTC placement Transportation Needs at Discharge Stretcher/Ambulance
--- NOTE | 2020-11-12 11:28 | PC.NURSE ---
Patient was sitting up in bed this morning, comfortably enjoying breakfast. Denies complaint, speaking with her family members on the phone on and off. Reported episode of fecal incontinence, patient states she does not always have control or know when she is going. Bath and shanice care given. New small red blotchy rash noted along legs, lower abdomen and concentrated on back. Patient states she has felt occasional itching. Wound vac remains intact. Dr. Lundberg's assistance notified and will relay message for her to call this RN back. Call light within reach, continue to monitor.
[2020-11-12] MEDS: diphenhydrAMINE 25 MG TABLET 50 MG PO ×2 (12:06→18:25)
--- NOTE | 2020-11-12 12:56 | CM.DPC ---
DCP/continued: Reviewed chart. Spoke with Dr. Negron this AM. Patient underwent I&D yesterday. Patient currently on IV abx and wound vac has been placed. Provider reports that currently patient requiring anesthesia for wound vac changes, next scheduled for 11-14. Dr. Negron anticipating that patient till need SNF when medically stable. Anticipated d/c date not indicated due to acuity. ROTARY DRIER OPERATOR met with patient explained CM team role. Patient alert, oriented, and very pleasant at time of visit. Patient reports that she resides at home with caregivers through [facility] 5dys per week. Patient unsure on how many hours of caregiving she receives per month. Patient indicates that her grandson does caregiving on the weekends. Patient reports that she does have CM but she is unsure of her last name. ROTARY DRIER OPERATOR call [facility] and determined that assigned CM is Gabi Salcedo ph# [phone]. Patient reports that she has not assigned any family member to be DPOA her plan is to assign her daughter Jonathon ph# [phone]. Patient does provide CM team to discuss d/c planning needs with her daughter if needed. Patient understands that she most likely will need SNF at time of d/c. 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 Patient's first SNF choice is [facility]. ROTARY DRIER OPERATOR called and spoke with Maria Alejandra. Per [facility] they will review for admit. Facility made aware that no d/c planned for this week. P: Anticipate SNF when stable. CM team to follow closely and call [facility] CM prior to d/c. Authorization will need to be obtained from [facility] for SNF. KERI Hein
--- NOTE | 2020-11-12 14:19 | PC.NURSE ---
Addendum entered by Brittani Brown R.N. 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
[2020-11-12 15:20] VITALS: BP 119/63; PULSE 83; RESP 17; TEMP 36.9; O2SAT 95
--- NOTE | 2020-11-12 17:57 | PC.NURSE ---
Addendum entered by Suha Phan R.N. 11/12/20 19:10: Patient rash is more extensive than previous assessment. Non raised, but red spots that combine on her back. Her upper back is fully red and there are scattered red spots on her lower back, armpits, groin, back of legs, and back of upper arms. Discussed with charge nurse and believe this is due to detergent used on our bedding. Called Dr. Negron and discussed this as well and she ordered benadryl PO 50mg [id number] prn. Original Note: Patient complaining of itchiness and requesting more benadryl that was given on day shift. Dr. Negron called and asked status of patient and gave her an update and asked about benadryl as well. Discussed possibility of being a medication reaction, but patient states it is only on her right arm and right side of her back, so unlikely. Benadryl 50mg PO now ordered per Dr. Negron.
[2020-11-12] MEDS: LACTATED RINGERS 1,000 ML 75 ML IV (18:23)
[2020-11-12] MEDS: predniSONE 5 MG TABLET 2.5 MG PO (20:38)
[2020-11-12] MEDS: LORazepam 0.5 MG TABLET PO (20:38)
[2020-11-12 21:00] VITALS: BP 108/61; PULSE 77; RESP 17; TEMP 37.2; O2SAT 96
[2020-11-13 01:00] VITALS: BP 96/61; PULSE 90; RESP 18; TEMP 37.1; O2SAT 92
[2020-11-13 05:00] VITALS: BP 92/57; PULSE 79; RESP 16; TEMP 37; O2SAT 94
[2020-11-13] MEDS: PIPERACILLIN/TAZO 3.375 GM in SODIUM CHLORIDE 0.9% 100 ML 25 ML IV (05:08)
[2020-11-13 06:36] LABS: Add Manual Diff / Slide Review NO; Basophils Absolute Auto 0 /uL (0-100); Basophils Percent Auto 0.5 % (0-2); Eosinophils Absolute Auto 400 /uL (0-450); Hematocrit 30.6 % (36-46); Hemoglobin 10.1 g/dL (12.0-16.0); Lymphocytes Absolute Auto 1300 /uL (1100-4500); Lymphocytes Percent Auto 14.6 % (25-40); Mean Corpuscular HGB Conc 32.9 % (30-36); Mean Corpuscular Hemoglobin 31.4 PG (26-34); Mean Corpuscular Volume 95.2 fL (80-100); Monocytes Absolute Auto 500 /uL (0-900); Monocytes Percent Auto 5.8 % (3-14); Neutrophils Absolute Auto 6700 /uL (1500-7000); Neutrophils Percent Auto 74.1 % (50-75); Platelet Count 256 X10^3/uL (150-400); Red Blood Cell Count 3.22 X10^6/uL (4.0-5.2); Red Cell Distribution Width 13.8 % (11.6-14.8)
[2020-11-13 06:42] LABS: BUN Creatinine Ratio 11.6 (6-22); Blood Urea Nitrogen 5 mg/dL (7-17); Calcium 8.7 mg/dL (8.4-10.2); Carbon Dioxide 31 mmol/L (22-32); Chloride 106 mmol/L (98-107); Estimated Glomerular Filt Rate > 60.0 mL/min (>60); Glucose 97 mg/dL (80-110); HEMOLYSIS < 15 (0-50); Potassium 3.7 mmol/L (3.4-5.1); Sodium 140 mmol/L (137-145)
[2020-11-13] MEDS: ATORVASTATIN 20 MG TABLET 40 MG PO (09:14)
[2020-11-13] MEDS: ENOXAPARIN 40 MG/0.4 ML SYRINGE SUBCUT (09:15)
[2020-11-13] MEDS: HYDROXYCHLOROQUINE 200 MG TABLET PO ×2 (09:15→20:31)
[2020-11-13] MEDS: predniSONE 5 MG TABLET PO (09:21)
[2020-11-13] MEDS: CIPROFLOXACIN 400 MG/200 ML PIGGYBACK 200 MG IV ×2 (09:21→22:28)
[2020-11-13 09:37] VITALS: BP 93/50; PULSE 86; RESP 20; TEMP 36.8; O2SAT 89
[2020-11-13] MEDS: ACETAMINOPHEN 325 MG TABLET 650 MG PO (10:36)
--- NOTE | 2020-11-13 10:44 | OT.IP.EVAL ---
Current Diagnoses Sepsis, unspecified organism (11/09/20) Surgery Performed Operation Date: 11/11/20 12:30 Actual Procedures p I&D back with wound vac - Elizabeth Oro MD Occupational Therapy Inpatient Evaluation/Re-Eval M1 PT/OT-IP Prior Functional Status Start: 11/12/20 12:33 Freq: NEEDED Status: Active Protocol: Document 11/13/20 11:26 [facility] (Rec: 11/13/20 11:47 [facility] [id number]) Medical Review Prior Functional Status Medical History Reviewed Yes Communication able to make needs known Mobility and Gait pt stated that she is non- ambulatory and unable to stand on her own . stated that she spends most of the day on her recliner and sleeps on her recliner. stated that she has a caregiver that comes in 9-12 and assists her to use the toilet. pt stated that her caregiver picks her up and she holds on the her caregiver's neck and transfer her on to bedside commode. pt stated that she sits on her recliner until her next caregiver gets her ready for the night from 5 -7. pt stated that she does is incontinent and her caregiver assists her with hygiene care. stated that she has not taken a shower for a long time since she cannot get into the shower and she only takes sponge bathes. Activities of Daily Living and IADL's Pt states she is able to do her grooming needs except for her hair after caregiver gets her to the sink in the wc. Pt states gets dressed from her WC with assist from caregivers . Pt states has been more difficulty to use her arms due to weakness and decreased AROM and needing more assist from her caregivers. Social History Household Members none Living Arrangements Apartment/Condo Number of Stairs To Enter/Railing? pt lives on a 3rd floor apartment with an elevator to get to her floor Home Environment Standard Height Toilet,Tub/ Shower,Elevator Home Equipment Manual Wheelchair,Bedside Commode,Grab Bars Near Toilet M2 OT-IP Current Condition Start: 11/13/20 11:26 Freq: Status: Active Protocol: Document 11/13/20 11:26 [facility] (Rec: 11/13/20 11:47 [facility] [id number]) Occupational Therapy Current Condition Current Condition Evaluation Date 11/13/20 Treatment Diagnosis Sepsis, back wound, MS, generalized muscle weakness Diagnosis Onset Date 11/09/20 M3 OT- IP Subjective and Pain Start: 11/13/20 11:26 Freq: Status: Active Protocol: Document 11/13/20 11: [facility] (Rec: 11/13/20 11:47 [facility] [id number]) OT- Subjective Occupational Therapy Visit Type Type Initial Evaluation Visit Start Time 10:10 Visit Stop Time 10:44 Total Visit Minutes 34 Occupational Therapy Visit Comments Patient Comments Pt is bed and not wanting to try to get her up today, but willing to work with OT for OT eval. Patient/Caregiver Goals TO go home. OT Pain Assessment Pain When Pain Assessed At Rest Pain Present Pain Present Denied Pain M4 OT- IP ADL's Start: 11/13/20 11:26 Freq: Status: Active Protocol: Document 11/13/20 11:26 [facility] (Rec: 11/13/20 11:47 [facility] [id number]) OT VJI-[id number] General Evaluation Self-Feeding Ability Standby Assistance Comments OT Self-Feeding Comments Pr nursing able to do after set-up. OT ADL-Grooming General Evaluation Areas Needing Assistance Retrieving/Set-up of Grooming Items,Combing/Brushing Hair Comments OT Grooming Comments Pt needing assist to do her hair due to decreased AROM in her arms. OT ADL-Oral Care Comments Oral Care Comments Not performed. OT ADL-Dressing General Eval Lower Body Dressing Ability Total Assistance Comments OT Dressing Comments Dependent for LB dressing needs. OT ADL-Toileting Comments OT Toileting Comments Pt did not have to go at this time. OT ADL-Bathing Comments OT Bathing Comments NOt at this time. M5 OT- IP IADL's Start: 11/13/20 11:26 Freq: Status: Active Protocol: Document 11/13/20 11:26 [facility] (Rec: 11/13/20 11:47 [facility] [id number]) OT-Instrumental Activities of Daily Living Home Safety Awareness Awareness of Need for Assistance at Home Good Awareness Ability to Problem Solve Emergency Able to Problem Solve Situations Medication Management Medication Management No Deficits Identified Medication Management Comments Pt states take her own medications, mostly supplements which she has a a grooming travel bag. Money Management Money Management No Deficits Identified Money Management Comments Pt states pays her own bills. Meal Preparation Meal Preparation Caregiver Provides Assist Retail Aide Retail Aide Caregiver Provides Assist M6 OT- IP Functional Cognition Start: 11/13/20 11:26 Freq: Status: Active Protocol: Document 11/13/20 11:26 [facility] (Rec: 11/13/20 11:47 [facility] [id number]) Cognitive Factors Limiting Selfcare Function Cognitive Ability Level of Alertness Alert Patient Orientation Name,Age,Birthday,Month,Date, Year,Day of Week,Place, Situation Attention Span Ability Capable of Focused Attention, Capable of Sustained Attention Ability to Follow Commands Able to Follow One Step Commands Safety Awareness No Deficits Noted Cognitive Comments Cognitive Assessment Comments Pt [place] and has occasional word finding problems. To continue to assess pt for cognitive needs while here. OT- Vision and Hearing OT- Hearing Assessment OT- Hearing Assessment Hearing Impaired OT- Vision Assessment Visual Acuity Glasses All The Time M7 OT- IP Mobility and Balance Start: 11/13/20: Freq: Status: Active Protocol: Document 11/13/20 11: [facility] (Rec: 11/13/20 11:47 [facility] [id number]) OT-Transfer Assessment Comments Mobility Comments Not performed. Pt just wanting to stay in bed and felt getting up yesterday was too much and not comfortable to try again at this time. Pt states I was leaning, my feet did not touch the floor, and I was just uncomfortable. OT- Gait Assessment Comments Gait Ability Comments Pt does not walk. OT- Balance Assessment Sitting Balance and Reactions Static Sitting Balance Ability Poor M8 OT- IP Objective Assessments Start: 11/13/20 11: Freq: Status: Active Protocol: Document 11/13/20 11: [facility] (Rec: 11/13/20 11:47 [facility] [id number]) OT Gross Range of Motion Upper Extremity Range of Motion Assessment Bilaterally Impaired ROM Impairments RUE AROM 0-95, LUE 0-60 Pt has a flexed posture at neck and shoulders. OT Strength Comments Strength Comments BUE 3-/5 to 3+/5 from proximal to distal. OT- Coordination Assessment Comments Coordination Comments Pt has difficulty for finger to thumb opposition with left hand. Pt has arthritic changes in bilateral hands. OT-Muscle Tone Assessment Muscle Tone WNL Yes M9 OT- IP Assessment and Plan Start: 11/13/20 11:26 Freq: Status: Active Protocol: Document 11/13/20 11: [facility] (Rec: 11/13/20 11:47 [facility] [id number]) OT Summary Assessment and Plan Potential Rehabilitation Potential Good Analytic Complexity at Evaluation Moderate Summary OT Impairments Pain,Range of Motion,Strength, Balance,Functional Mobility, Self-Feeding,Grooming,Dressing ,Toileting,Bathing,Toilet Transfers,Shower Transfers, Activity Tolerance Progress Towards Goals Slow Progress due to Medical Issues,Slow Progress due to Activity Tolerance Assessment Summary Pt high complexity and here with sepsis, back wound and has MS. Pt prior able to transfer with caregiver to and from her recliner to , however now total assistx2 for bed mobility needs as per PT eval. Pt not wanting to try to get up today. Pt states her arms have progressively gotten weaker and now needing more assist from her caregivers. Pt would benefit from skilled rehab to improve her mobility to get back to prior level of function, otherwise pt may benefit from LTC if not able to get back to her baseline level. Goals Self-Feeding Goal Standby Assistance Grooming Goal Standby Assistance Toilet Transfer Goal Bedside Commode, MAX A X1 Days to Meet Goals 30 Frequency of Treatment Frequency Of Treatment Once a Day Treatment Plan OT Treatment Plan ADL Training,Functional Mobility,Patient/Family Education,Discharge Planning Other Treatment Recommendations and Next GO over more stretching Treatment Focus activities and BUE exercises that pt can do on her own to help increased her AROM and strength so able to take care of her hair on her own. Discharge Recommendations OT Discharge Recommendations SNF Rehab Transportation Needs at Discharge Wheelchair/Cabulance,Stretcher /Ambulance
--- NOTE | 2020-11-13 12:15 | P.PN_ITS ---
Subjective Subjective Date Patient Seen: 11/13/20 Time Patient Seen: 08:20 Interval history: The pt reports that she is feeling well this morning. Yesterday afternoon she did develop a rash on her back and onto her legs. It was thought to be due to the bed linens. It was very itchy. She reports it is improved this morning. Exam Vital Signs (past 8 hours): - 11/13/20 05:00 11/13/20 09:37 Temperature 98.6 F 98.3 F Pulse Rate 79 86 Respiratory Rate 16 20 Blood Pressure 92/57 L 93/50 L Pulse Oximetry 94 89 L Oxygen Delivery Method Room Air Oxygen Flow Rate 0 Narrative Exam Narrative: Gen: NAD, sitting comfortably in bed, appears well CV: RRR, grade 3/6 systolic murmur Resp: clear to auscultation bilaterally Abd: soft, nontender, nondistended, normoactive bowel sounds Ext: no edema Skin: back with wound vac in place with appropriate suction, surrounding erythema stable, minimal serosanguinous drainage, diffuse erythematous slightly raised rash that appears allergic in nature Objective Labs Result Diagrams: 11/13/20 06:10 11/13/20 06:10 Labs: Laboratory Results - last 24 hr 11/13/20 11/13/20 06:10 06:10 WBC 9.0 RBC 3.22 L Hgb 10.1 L Hct 30.6 L MCV 95.2 MCH 31.4 MCHC 32.9 RDW 13.8 Plt Count 256 Neut % (Auto) 74.1 Lymph % (Auto) 14.6 L [place] % (Auto) 5.8 Eos % (Auto) 5.0 H Baso % (Auto) 0.5 Neut # (Auto) 6700 Lymph # (Auto) 1300 [place] # (Auto) 500 Eos # (Auto) 400 Baso # (Auto) 0 Sodium 140 Potassium 3.7 Chloride 106 Carbon Dioxide 31 BUN 5 L Creatinine 0.43 L Estimated GFR > 60.0 BUN/Creatinine Ratio 11.6 Glucose 97 Calcium 8.7 PFSH Social History household members: none Smoking Status: Never smoker alcohol intake: never Assessment & Plan Assessment & Plan narrative: Pt is a 75yo woman with MS, RA, chronically wheelchair bound and severely kyphotic who presented having failed outpatient therapy for back ulceration. Pt with septic shock on arrival with hypotension not responsive to fluids, needing pressure support with levophed. No other end- organ damage. Source appears to be back ulceration. Problems: Sepsis with hypotension: Resolved. Back ulceration: Failed outpatient therapy. Cultures showing proteus and staph epidermidis. CT completed 11/03 also showed no signs of osteomyelitis. POD #2 S/P debridement in the OR, revealing of deeper involvement than originally anticipated. Based on report, stage IV ulcer. Wound vac now in place. Multiple sclerosis: Stable Rheumatoid arthritis: Stable CV: - mIVF at 75cc/hr for now. Monitor PO intake today, okay to stop if adequate Resp: Stable - Continue to monitor for signs of fluid overload ID: Presumed source of infection back ulceration. Culture again growing proteus, from blood and wound, and staph epidermidis. - Narrow coverage to IV Ciprofloxacin based on culture results Skin: - Surgery consulted, appreciate ongoing care and recommendations. - Plan for wound vac change on 11/14 Neuro: - Continue Prednisone home dosing Rheum: - Methotrexate currently held FEN: General diet DVT ppx: Lovenox Code: Full code. Dispo: Pt does live independently. Discussed with care management, will require SNF at discharge likely for ongoing wound management. Long-term would benefit from at least assisted living. Quality VTE Deep Vein Thrombosis/Pulmonary Embolism Present on Admission: No
--- NOTE | 2020-11-13 14:50 | CM.DPNOTE ---
Faxed referral to [facility] and received fax conf. Sima Singh CM Asst.
[2020-11-13 15:40] VITALS: BP 110/69; PULSE 83; RESP 18; TEMP 37.1; O2SAT 96
[2020-11-13 19:56] VITALS: BP 87/52; PULSE 74; RESP 18; TEMP 37.1; O2SAT 95
[2020-11-13] MEDS: predniSONE 5 MG TABLET 2.5 MG PO (20:30)
[2020-11-13] MEDS: LORazepam 0.5 MG TABLET PO (20:31)
[2020-11-14 00:52] VITALS: BP 84/55; PULSE 81; RESP 12; TEMP 36.7; O2SAT 94
[2020-11-14 01:50] VITALS: BP 112/70
[2020-11-14 04:25] VITALS: BP 95/53; PULSE 80; RESP 18; TEMP 36.4; O2SAT 94
[2020-11-14 06:28] LABS: Add Manual Diff / Slide Review NO; Basophils Absolute Auto 100 /uL (0-100); Basophils Percent Auto 1.1 % (0-2); Eosinophils Absolute Auto 600 /uL (0-450); Eosinophils Percent Auto 7.4 % (2-4); Hematocrit 30.6 % (36-46); Lymphocytes Absolute Auto 1800 /uL (1100-4500); Lymphocytes Percent Auto 20.3 % (25-40); Mean Corpuscular HGB Conc 32.7 % (30-36); Mean Corpuscular Hemoglobin 31.1 PG (26-34); Mean Corpuscular Volume 95.2 fL (80-100); Monocytes Absolute Auto 700 /uL (0-900); Neutrophils Absolute Auto 5500 /uL (1500-7000); Neutrophils Percent Auto 63.2 % (50-75); Platelet Count 215 X10^3/uL (150-400); Red Blood Cell Count 3.22 X10^6/uL (4.0-5.2); Red Cell Distribution Width 13.6 % (11.6-14.8); White Blood Cell Count 8.7 X10^3/uL (4.5-11.0)
[2020-11-14] MEDS: HYDROXYCHLOROQUINE 200 MG TABLET PO ×2 (08:22→21:33)
[2020-11-14] MEDS: CIPROFLOXACIN 400 MG/200 ML PIGGYBACK 200 MG IV ×2 (08:22→21:33)
[2020-11-14] MEDS: ENOXAPARIN 40 MG/0.4 ML SYRINGE SUBCUT (08:25)
[2020-11-14] MEDS: predniSONE 5 MG TABLET PO (08:25)
[2020-11-14] MEDS: ATORVASTATIN 20 MG TABLET 40 MG PO (08:25)
[2020-11-14] MEDS: DOCUSATE 100 MG CAPSULE PO ×2 (08:25→21:29)
--- NOTE | 2020-11-14 08:58 | PM.PN.1 ---
Subjective Subjective Date Patient Seen: 11/14/20 Time Patient Seen: 07:15 Interval history: The pt has no specific concerns today. She is overall feeling well. She denies any pain. The rash on her back is much less itchy now. Exam Vital Signs (past 8 hours): - 11/14/20 01:50 11/14/20 04:25 Temperature 97.5 F L Pulse Rate 80 Respiratory Rate 18 Blood Pressure 112/70 95/53 L Pulse Oximetry 94 Oxygen Delivery Method Room Air Oxygen Flow Rate 0 Narrative Exam Narrative: Gen: NAD, sitting comfortably in bed, appears well CV: RRR, grade 3/6 systolic murmur Resp: clear to auscultation bilaterally Abd: soft, nontender, nondistended, normoactive bowel sounds Ext: no edema Skin: back with wound vac in place with appropriate suction, surrounding erythema stable, minimal serosanguinous drainage, diffuse erythematous slightly raised rash that appears allergic in nature - significantly improved from yesterday Objective Labs Result Diagrams: 11/14/20 06:02 11/13/20 06:10 Labs: Laboratory Results - last 24 hr 11/14/20 06:02 WBC 8.7 RBC 3.22 L Hgb 10.0 L Hct 30.6 L MCV 95.2 MCH 31.1 MCHC 32.7 RDW 13.6 Plt Count 215 Neut % (Auto) 63.2 Lymph % (Auto) 20.3 L [place] % (Auto) 8.0 Eos % (Auto) 7.4 H Baso % (Auto) 1.1 Neut # (Auto) 5500 Lymph # (Auto) 1800 [place] # (Auto) 700 Eos # (Auto) 600 H Baso # (Auto) 100 PFSH Social History household members: none Smoking Status: Never smoker alcohol intake: never Assessment & Plan Assessment & Plan narrative: Pt is a 75yo woman with MS, RA, chronically wheelchair bound and severely kyphotic who presented having failed outpatient therapy for back ulceration. Pt with septic shock on arrival with hypotension not responsive to fluids, needing pressure support with levophed. No other end-organ damage. Source appears to be back ulceration. Problems: Sepsis with hypotension: Resolved. Back ulceration: Failed outpatient therapy. Cultures showing proteus and staph epidermidis. CT completed 11/03 also showed no signs of osteomyelitis. POD #3 S/P debridement in the OR, revealing of deeper involvement than originally anticipated. Based on report, stage IV ulcer. Wound vac now in place. Multiple sclerosis: Stable Rheumatoid arthritis: Stable CV: Stable - Monitor BPs closely Resp: Stable - Continue to monitor for signs of fluid overload ID: Presumed source of infection back ulceration. Culture again growing proteus, from blood and wound, and staph epidermidis. - Continue IV Ciprofloxacin Skin: - Surgery consulted, appreciate ongoing care and recommendations. - Plan for wound vac change today - Will need to determine appropriate location for ongoing wound vac changes Neuro: - Continue Prednisone home dosing Rheum: - Methotrexate currently held FEN: General diet DVT ppx: Lovenox Code: Full code. Dispo: Pt does live independently. Discussed with care management, will require SNF at discharge likely for ongoing wound management. Long-term would benefit from at least assisted living. Dependent on surgery recommendations for wound vac changes, could be safe for d/c later today or tomorrow. Quality VTE Deep Vein Thrombosis/Pulmonary Embolism Present on Admission: No
[2020-11-14 09:00] VITALS: BP 97/58; PULSE 77; RESP 20; TEMP 37.3; O2SAT 91
[2020-11-14] MEDS: SODIUM CHLORIDE 0.9% FLUSH 10 ML IV (11:01)
--- NOTE | 2020-11-14 12:36 | CM.DPC ---
Addendum entered by KERI Louis 11/14/20 15:03: ADD: Return call from [facility] and currently no beds available. Return call from [facility] and still not able to admit over the weekend but willing to review for first part of next week. RODRICK Gao kindly faxed referral to [facility] and [facility] as now per MD pt to remain here until bedside wound vac change on 11/18/20. Per Surgeon, pt tolerated wound vac change bedside this afternoon and was able to complete some I&D of necrotic tissue bedside and wound looking better with new wound vac placed and should be stable for d/c . SW received a call from Brittanie at [facility] stating her physician may have to review as currently pt does not meet Rehab criteria for PT/OT as she is w/c bound at baseline and wound care is currently not significant enough (deep, daily wound care, etc) to meet SNF criteria but if pt has IV-Abx needs then could qualify still. Unclear if IV-Abx needed at d/c yet but SW faxed updated Surgeon note from today and current IV-Abx Cipro to Brittanie at [facility] to review although pt not discharging in next day or two so likely will need to review closer to Tuesday. BF Original Note: DCP Cont/ongoing SNF planning: Per MD, pt improving some and could be stable for d/c by tomorrow and plan for surgeon to complete bedside wound vac change today but unclear if anesthesia needed today or what time wound vac change will happen. RN also unsure if IV-Abx needed at d/c and ELAINE will attempt to gather more information regarding wound care needs at d/c for SNF. ELAINE called [facility] admissions and left msg regarding their review of pt to inquire if they have availability in the next day or two if pt medically stable by then and if they can accept. ELAINE called [facility] and they did not receive a referral but currently have no availability for a couple days possibly until Tue11/17/20 so SW will await Surgeon to round today for wound vac change to determine when pt may be stable for d/c. ELAINE called [facility] admissions and left msg to inquire if they have availability and take admissions over the weekend and requested call back but no referral sent yet but maybe later today. [facility] cannot accept pt and are not able to take any new admissions over this weekend anyways. PASRR completed in anticipation of SNF. SW faxed SNF auth request referral to Brittanie at [facility] and called Brittanie and she confirms that she received referral and will review. Plan: ELAINE to follow closely for [facility] review for SNF auth and [facility] review and return call from [facility]. KERI Louis
--- NOTE | 2020-11-14 12:50 | OT.IP.TRT ---
Current Diagnoses Sepsis, unspecified organism (11/09/20) Surgery Performed Operation Date: 11/11/20 12:30 Actual Procedures p I&D back with wound vac - Elizabeth Oro MD Occupational Therapy Treatment Note M2 OT-IP Current Condition Start: 11/13/20 11:26 Freq: Status: Active Protocol: Document 11/13/20 11:26 [facility] (Rec: 11/13/20 11:47 [facility] [id number]) Occupational Therapy Current Condition Current Condition Evaluation Date 11/13/20 Treatment Diagnosis Sepsis, back wound, MS, generalized muscle weakness Diagnosis Onset Date 11/09/20 M3 OT- IP Subjective and Pain Start: 11/13/20 11:26 Freq: Status: Active Protocol: Document 11/14/20 12:42 [facility] (Rec: 11/14/20 12:50 [facility] [id number]) OT- Subjective Occupational Therapy Visit Type Type Treatment Note Visit Start Time 12:18 Visit Stop Time 12:35 Total Visit Minutes 17 Occupational Therapy Visit Comments Patient Comments Pt agreed to work with OT prior to having lunch. Pt's friend in the room. Patient/Caregiver Goals To go home. OT Pain Assessment Pain When Pain Assessed During Mobility Pain Present Pain Present Denied Pain M4 OT- IP ADL's Start: 11/13/20 11:26 Freq: Status: Active Protocol: Document 11/14/20 12:42 [facility] (Rec: 11/14/20 12:50 [facility] [id number]) OT [id number] Comments OT Self-Feeding Comments Not at meal time. Liquids in cups with lid and straw easier for pt to handle. versus glass cup due to her weakness and arthritis. OT ADL-Grooming General Evaluation Grooming Ability Moderate Assistance Comments OT Grooming Comments Pt able to brush her hair better as AROM of RUE improved as pt able to remember to do self stretching on her own for RUE. Pt having difficulty to control the brush in her left hand and needing therapist to help support her left arm at the elbow in order to assist to put her hair up. Pt able to brush up 1/2 of her hair before tiring and also has to stop as doctor came on to change out her back dressing/ wound. M6 OT- IP Functional Cognition Start: 11/13/20 11:26 Freq: Status: Active Protocol: Document 11/14/20 12:42 [facility] (Rec: 11/14/20 12:50 [facility] [id number]) Cognitive Factors Limiting Selfcare Function Cognitive Ability Level of Alertness Alert Patient Orientation Name,Age,Birthday,Month,Date, Year,Day of Week,Place, Situation Attention Span Ability Capable of Focused Attention, Capable of Sustained Attention Ability to Follow Commands Able to Follow One Step Commands Memory Description Short Term Impaired Safety Awareness No Deficits Noted Cognitive Comments Cognitive Assessment Comments Pt not able to fully recall all BUE stretches to help improve her AROM so able to brush and put her hair into a pony tail. Pt would benefit from cognitive assessment. M9 OT- IP Assessment and Plan Start: 11/13/20 11:26 Freq: Status: Active Protocol: Document 11/14/20 12:42 [facility] (Rec: 11/14/20 12:50 [facility] [id number]) OT Summary Assessment and Plan Potential Rehabilitation Potential Good Analytic Complexity at Evaluation Moderate Summary OT Impairments Pain,Range of Motion,Strength, Balance,Functional Mobility, Self-Feeding,Grooming,Dressing ,Toileting,Bathing,Toilet Transfers,Shower Transfers, Activity Tolerance Progress Towards Goals Slow Progress due to Medical Issues,Slow Progress due to Activity Tolerance Assessment Summary Noted some improvement with RUE and LUE AROM and able to assist to brush her hair a little more today. Pt would benefit from skilled rehab prior to going home, otherwise would benefit from LTC. Goals Self-Feeding Goal Standby Assistance Grooming Goal Standby Assistance Toilet Transfer Goal Bedside Commode Days to Meet Goals 17 Frequency of Treatment Frequency Of Treatment Once a Day Treatment Plan OT Treatment Plan ADL Training,Functional Mobility,Patient/Family Education,Discharge Planning Other Treatment Recommendations and Next grooming, SLUMS Treatment Focus Discharge Recommendations OT Discharge Recommendations SNF Rehab Transportation Needs at Discharge Wheelchair/Cabulance,Stretcher /Ambulance
--- NOTE | 2020-11-14 12:58 | PC.NURSE ---
Day shift: Wound-Vac dressing on Pt's left upper back changed today by Dr Oro. Per Dr Oro it is looking much better today compared to when it was placed. Pt tolerated the change well. No pain reported. This filing writer was in room to help MD. Dressing changed at approx 1245 today and wound-vac placed back on suction. No new settings to the vac.
--- NOTE | 2020-11-14 13:04 | PM.PROC.1 ---
Procedures Date/Time Date of procedure: 11/14/20 Time of procedure: 13:04 General Procedure description: Preop diagnosis: Left upper back pressure ulcer stage IV, with wound VAC Postop diagnosis: Same Operative procedure: Wound VAC change Surgeon: Shanelle Oro MD Anesthetic: None Procedure: Patient placed in the lateral position, right side down. Current dressing was intact. It was gently removed using intermittent normal saline to facilitate removal of the sponge. Total of 3 sponges were taken out. Wound is healthy, evidence of granulation tissue and slight bleeding with the debriding action of removal of the sponge. Minimal tissue requiring active debridement at the bedside. This time a single sponge was used to cover the wound. The deeper layer was not packed tightly as before. But deeper area was widely open and accessed the central component of the wound. Wound measures 6 cm x 4 cm by 0.3 cm. Muscle exposed, no bone visualized. Wound VAC replacement using the single sponge caring out to bridge on the left side of the back into the posterior axillary line without complication. Good seal on 1st attempt at suction. Impression: Overall improvement of wound. Tolerated bedside changing. Plan: Can begin working toward discharge with home health versus [facility] facility. Wound VAC change to occur again on Tuesday. Complications: none
--- NOTE | 2020-11-14 14:21 | CM.DPNOTE ---
Faxed referral packet to [facility] and received fax conf. Sima Singh CM Asst.
--- NOTE | 2020-11-14 14:59 | DIET.PN ---
Dietary Progress Note Assessment: 75 y/o F s/p wound VAC replacement. PO 50-60% more recently. States I am eating as much as I can. Does not like flavor of Mani but tolerating. Prefers different fruit for meals. HT: 157.48cm WT:60kg BMI: 24.2 Nutrition Diagnosis: increased nutrient needs r/t wound healing Interventions: changed fruit preferences with kitchen to grapes and melon. Confirmed no other flavor of Mani available. Provided wound nutrition education including encouraging protein, fluids, and micronutrient intake to promote healing. Very receptive. Monitoring/Evaluations: PO, wt, diet tolerance
[2020-11-14 17:00] VITALS: BP 109/61; PULSE 85; RESP 16; TEMP 37; O2SAT 94
[2020-11-14 21:00] VITALS: BP 111/64; PULSE 85; RESP 18; TEMP 36.8; O2SAT 94
[2020-11-14] MEDS: predniSONE 5 MG TABLET 2.5 MG PO (21:29)
[2020-11-14] MEDS: LORazepam 0.5 MG TABLET PO (21:29)
[2020-11-15] VITALS (7 sets, daily range): BP systolic 98–141; BP diastolic 45–75; PULSE 74–85; RESP 14–17; TEMP 36.2–37.1; O2SAT 92–96
--- NOTE | 2020-11-15 06:57 | P.PN_ITS ---
Subjective Subjective Date Patient Seen: 11/15/20 Time Patient Seen: 06:59 Interval history: Patient seen and evaluated this morning doing well vital signs have been stable overnight. Patient has no complaints of pain. She says she is eating okay good bowel movements. No nursing staff concerns. Sign out care discussed with Dr. Negron. Exam Vital Signs (past 8 hours): - 11/15/20 02:40 11/15/20 05:13 Temperature 97.1 F L 97.5 F L Pulse Rate 74 81 Respiratory Rate 14 14 Blood Pressure 107/45 L 123/67 Pulse Oximetry 92 96 Oxygen Delivery Method Room Air Oxygen Flow Rate 0 Narrative Exam Narrative: Gen.: Alert sitting in bed good historian HEENT: Pupils equal round and reactive or mucosa is moist Cardio: S1-S2 regular rate and rhythm systolic murmur present Respiratory: Good respiratory effort lungs are clear decreased breath sounds at bases Abdomen: Soft nontender no rebound guarding Extremities: No edema. Patient is on ambulatory Skin: Back with wound VAC in place some mild drainage. Skin rash is improved based on description provided previously Objective Labs Result Diagrams: 11/14/20 06:02 11/13/20 06:10 [facility] Social History household members: none Smoking Status: Never smoker alcohol intake: never Assessment & Plan Assessment & Plan narrative: Sepsis with shock requiring pressors resolved due to infected ulcer of back cultures growing Proteus and Staph epididymis Back ulcer stage IV requiring surgical debridement now x2 and placement of wound VAC. care by General surgery. Next wound VAC replacement is on Tuesday. Discu ssion patient being discharged to [facility] and coming back into the hospital for wound VAC placement or needs to stay in the hospital for next wound VAC change will discuss with discharge planning work on shelter placement and surgical team. Multiple sclerosis longstanding patient is on ambulatory and wheelchair-bound Rheumatoid arthritis patient on methotrexate and steroids. Chronic and stable. Disposition and plan. Continue with the wound care for stage IV ulcer of back. Discussed discharge plan for shelter facility and readmission and outpatient wound VAC changes or whether she needs to be prolonged stay in hospital. Quality VTE Deep Vein Thrombosis/Pulmonary Embolism Present on Admission: No
[2020-11-15] MEDS: predniSONE 5 MG TABLET PO (09:30)
[2020-11-15] MEDS: ENOXAPARIN 40 MG/0.4 ML SYRINGE SUBCUT (09:30)
[2020-11-15] MEDS: ATORVASTATIN 20 MG TABLET 40 MG PO (09:30)
[2020-11-15] MEDS: CIPROFLOXACIN 400 MG/200 ML PIGGYBACK 200 MG IV ×2 (09:31→20:52)
[2020-11-15] MEDS: diphenhydrAMINE 25 MG TABLET 50 MG PO (09:31)
[2020-11-15] MEDS: HYDROXYCHLOROQUINE 200 MG TABLET PO ×2 (09:32→20:56)
[2020-11-15] MEDS: SODIUM CHLORIDE 0.9% FLUSH 10 ML IV (09:33)
--- NOTE | 2020-11-15 10:53 | PM.PN.1 ---
Subjective Subjective Date Patient Seen: 11/15/20 Time Patient Seen: 10:53 Interval history: No acute events. Exam Vital Signs (past 8 hours): - 11/15/20 05:13 11/15/20 08:37 Temperature 97.5 F L 97.8 F Pulse Rate 81 78 Respiratory Rate 14 15 Blood Pressure 123/67 98/58 L Pulse Oximetry 96 96 Oxygen Delivery Method Room Air Oxygen Flow Rate 0 Narrative Exam Narrative: General elderly woman alert oriented no acute distress Objective Labs Result Diagrams: 11/14/20 06:02 11/13/20 06:10 [facility] Social History household members: none Smoking Status: Never smoker alcohol intake: never Assessment & Plan Assessment & Plan narrative: 75-year-old woman admitted the hospital with a decubitus ulcer and sepsis now resolved. She is status post debridement has a wound VAC in place. She tolerated a bedside wound VAC change yesterday. Next wound VAC change either Tuesday or Tuesday next week. This can be performed either at a [facility] facility or through the wound care center, does not require further hospitalization for continued wound care. Quality VTE Deep Vein Thrombosis/Pulmonary Embolism Present on Admission: No
--- NOTE | 2020-11-15 14:39 | CM.DPC ---
DCP SNF vs HH Per Surgeon, pt tolerated wound vac change bedside yesterday afternoon without need for anesthesia and next wound vac change to happen 11/18 bedside but currently no medical need to remain in the hospital just for wound vac change. ELAINE reached out the the previously referred SNFs and confirmed: [facility]-full this weekend, maybe Tue opening, has referral [facility]-full this weekend, maybe Tue opening, has referral. [facility]- still no weekend admissions but reviewing for maybe Tue or [facility]- declines accepting pt at this time. [facility]- no answer and no option to leave msg [facility]- only contracted with [facility] for current residents at their facility ELAINE met bedside with pt and explained role and discussed above SNFs and that [facility] may or may not auth SNF at d/c based on pt's medical needs. Pt states initially that she doesn't really even want to go to [facility] for SNF but then realized that it would be temporary short stay rehab and agreeable. Discussed possible back up plan if [facility] does not auth SNF and pt states she still has her [facility] and is open with [facility]. ELAINE called [facility] and confirmed that they just opened pt to services for HH RN/VENETIAN BLIND TAPE CUTTER/DIRECTOR PHARMACEUTICAL and could add pt to their [facility] if discharged to home and not SNF for increased support at d/c and would just need Resume Orders. ELAINE faxed H&P and some clinicals to [facility] to review. ELAINE discussed possible need for outpt Wound Care at [facility] if discharged home and pt states she typically uses [facility] and [facility] for appointments and states she could likely use this if needed but seems to be hopeful for SNF and then home once wound is more healed and needs less oversight. ELAINE did not contact [facility] today as currently no d/c orders and no accepting SNF identified and [facility] would prefer to auth closer to d/c and already has been reviewing notes from yesterday towards seeing if pt meets criteria for SNF. Plan: ELAINE to follow closely with Surgeon and MD tomorrow towards determining d/c needs of wound care, any IV-abx vs orals, and discussion with [facility] to determine if they will auth SNF for Tuesday as currently no available SNFs found but [place] may need to be tried. KERI Louis
--- NOTE | 2020-11-15 16:21 | OT.IPNOTE ---
Attempted to see pt for OT services x2 today. Pt requesting more time for toileting in bed upon first attempt and eating lunch at 1430 upon second attempt. Will continue to follow.
[2020-11-15] MEDS: predniSONE 5 MG TABLET 2.5 MG PO (20:51)
[2020-11-15] MEDS: LORazepam 0.5 MG TABLET PO (20:51)
[2020-11-16 05:35] VITALS: BP 105/47; PULSE 70; RESP 16; TEMP 36.7; O2SAT 95
[2020-11-16 09:00] VITALS: BP 105/42; PULSE 76; RESP 14; TEMP 37.2; O2SAT 97
[2020-11-16] MEDS: ENOXAPARIN 40 MG/0.4 ML SYRINGE SUBCUT (09:07)
[2020-11-16] MEDS: ATORVASTATIN 20 MG TABLET 40 MG PO (09:07)
[2020-11-16] MEDS: HYDROXYCHLOROQUINE 200 MG TABLET PO ×2 (09:07→21:49)
[2020-11-16] MEDS: predniSONE 5 MG TABLET PO (09:07)
[2020-11-16] MEDS: SODIUM CHLORIDE 0.9% 250 ML 21 ML IV (09:08)
[2020-11-16] MEDS: CIPROFLOXACIN 400 MG/200 ML PIGGYBACK 200 MG IV ×2 (09:08→21:49)
--- NOTE | 2020-11-16 10:01 | P.PN_ITS ---
Subjective Subjective Date Patient Seen: 11/16/20 Time Patient Seen: 10:01 Interval history: Patient did well overnight. No new concerns. No pain. Stable vital signs. Surgery okay for potential transfer to nursing. Can continue with IV antibiotics there as well as wound VAC changes. Will arrange that with discharge planning today. Exam Vital Signs (past 8 hours): - 11/16/20 05:35 11/16/20 09:00 Temperature 98.0 F 98.9 F Pulse Rate 70 76 Respiratory Rate 16 14 Blood Pressure 105/47 L 105/42 L Pulse Oximetry 95 97 Oxygen Delivery Method Room Air Oxygen Flow Rate 0 Narrative Exam Narrative: Gen.: Alert good historian sitting in bed. HEENT: Pupils equal round and reactive or mucosa is moist neck is supple Cardio: S1-S2 systolic murmur present Respiratory: Lungs are clear to auscultation no wheezes or crackles normal respiratory effort. Abdomen: Soft nontender no rebound or guarding no liver spleen enlargement no appreciable hernias Extremities: Full range of motion no appreciable weakness no cyanosis or edema. Skin wound VAC in place Objective Labs Result Diagrams: 11/14/20 06:02 11/13/20 06:10 [facility] Social History household members: none Smoking Status: Never smoker alcohol intake: never Assessment & Plan Assessment & Plan narrative: Sepsis with shock requiring pressors resolved due to infected ulcer of back cultures growing Proteus and Staph epididymis. Status post I&D. For total of 14 days. 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 work on discharge with wound care or usp to change wound VAC. Will need IV antibiotics Multiple sclerosis longstanding patient is on ambulatory and wheelchair-bound Rheumatoid arthritis patient on methotrexate and steroids. Chronic and stable. Disposition and plan. Discourage to usp facility when bed available. Will need IV antibiotics and local wound care with wound VAC replace ment. Quality VTE Deep Vein Thrombosis/Pulmonary Embolism Present on Admission: No
[2020-11-16] MEDS: ACETAMINOPHEN 325 MG TABLET 650 MG PO (11:25)
--- NOTE | 2020-11-16 12:22 | CM.DPC ---
Addendum entered by Katharine Pacheco R.N. 11/16/20 14:37: DCP continued: Patient plan is to DC to SNF with IV abx ( may switch to PO at DC) and wound vac. however If IV abx DC and patient placed on PO patient wont meet for [facility] guidelines. may need to stay on IV ABX and wound care at DC. [facility]- received clinicals and are reviewing and has ability to provide care for patients advanced wounds. CM will follow up with them in AM. Katharine Pacheco RN Addendum entered by Katharine Pacheco R.N. 11/16/20 14:06: DCP Continued: ART spoke with Eloisa from [facility]- [facility] AU[facility] Approved - [id number]- [facility] can not accept patient due to severity of her wounds[facility] stated she doesn't know if she has any bed availability on Tuesday due to a few DC not happening as planned - she requested for us to follow up in AM to determine if there is new bed available. CM attempted [facility] but none had Admissions available on the weekend. CM department to followup in AM Called [facility] at and spoke to Gilles in admissions at [phone] - He is moving patients around today but should have bed availability tomorrow. Faxed clinicals to ... department will follow up with [facility] tomorrow. Katharine Pacheco RN Original Note: DCP continued: CM contacted [facility] ART Amin- to check on [facility] Auth. Eloisa stated that this patient hasnt been looked at in a few days and she will review patient today to determine authorization. ART Faxed Current PT/OT and progress notes to thayer. Will follow up with Eloisa this afternoon to check on Auth. ART spoke with Dr. Eden he stated patient is ready to DC to SNF when thayer approves Auth and SNF bed placement is determined- Patient currently on IV abx but according to Dr. eden can DC on PO abx but will need wound care with wound Vac changes. ART contacted [facility] to check bed availability- Fela stated they will probably have beds tomorrow, Faxed clinicals to Fela for review for SNF bed Placement. Contacted [facility] SW no answer LV and sent clinicals for their review. Contacted [facility] - stated they will have beds tomorrow Tuesday. - but do not currently take patients with wound vac. so they are not able to take patient currently Contacted [facility] to check on bed placement and LVM with [facility]- sent clinicals and will follow up later today to see about possible available beds. Will look into possible SNF placement options in [place]. CM will follow up with SNF options later today to see about possible placements.
[2020-11-16 13:00] VITALS: BP 96/46; PULSE 78; RESP 14; TEMP 36.4; O2SAT 96
[2020-11-16 15:45] VITALS: BP 109/60; PULSE 78; RESP 17; TEMP 37.2; O2SAT 97
[2020-11-16 19:39] VITALS: BP 149/59; PULSE 78; RESP 18; TEMP 36.8; O2SAT 97
[2020-11-16] MEDS: predniSONE 5 MG TABLET 2.5 MG PO (21:50)
[2020-11-16] MEDS: LORazepam 0.5 MG TABLET PO (21:51)
[2020-11-16] MEDS: DOCUSATE 100 MG CAPSULE PO (21:51)
[2020-11-16] MEDS: SODIUM CHLORIDE 0.9% FLUSH 10 ML IV (21:52)
--- NOTE | 2020-11-16 23:11 | PC.NURSE ---
Care assumed approximately 1730. Pt. repositioned every two hours. Incontinence brief changed twice [id number]. Noted purple/red skin on coccyx and bilateral elbows; all blanches. Waffle cushion under coccyx, pillows under elbows. Pillow was placed under knees/heels, but patient asked that it be removed. Wound vac to left posterior shoulder intact at 125 mmHg.
[2020-11-17] VITALS (7 sets, daily range): BP systolic 103–141; BP diastolic 57–86; PULSE 66–82; RESP 14–18; TEMP 36.4–36.8; O2SAT 93–98
--- NOTE | 2020-11-17 01:52 | PC.NURSE ---
Patient is alert and oriented. Breath sounds diminished but CTA with RA sat of 96%. HRR. Denies nausea. BT present and abdomen is soft. Is incontinent of urine. Pressure injury to left scapula with wound vac intact and to 125 mmHg. Coccyx/buttocks also purple discoloration but blanchable; is being repositioned q2h. Weakness in bilateral LE related to MS and also states she has numbness in feet; is able to move legs. Denies pain. Wearing bilateral calf SCD's. Fall risk score is high and bed alarm is activated.
[2020-11-17] MEDS: predniSONE 5 MG TABLET PO (09:10)
[2020-11-17] MEDS: ATORVASTATIN 20 MG TABLET 40 MG PO (09:10)
[2020-11-17] MEDS: ENOXAPARIN 40 MG/0.4 ML SYRINGE SUBCUT (09:10)
[2020-11-17] MEDS: SODIUM CHLORIDE 0.9% FLUSH 10 ML IV ×3 (09:10→21:07)
[2020-11-17] MEDS: HYDROXYCHLOROQUINE 200 MG TABLET PO ×2 (09:11→21:06)
[2020-11-17] MEDS: CIPROFLOXACIN 400 MG/200 ML PIGGYBACK 200 MG IV ×2 (09:18→21:06)
[2020-11-17] MEDS: SODIUM CHLORIDE 0.9% 250 ML 21 ML IV (09:18)
--- NOTE | 2020-11-17 11:32 | CM.DPC ---
Addendum entered by KERI Louis 11/17/20 15:20: ADD: [facility] ([phone]) called back and not contracted with [facility] and no current openings. [facility]- willing to review but could only accept if no wound vac needed after wound vac change tomorrow. [facility]- still reviewing for possibly tomorrow. [facility]- not contracted with [facility]- no openings this week [facility]- contracted and willing to review, has computer access and no need to fax. BF Original Note: DCP Ongoing SNF Planning: Per MD, pt remains medically stable and plan for next wound vac change tomorrow Tu11/18/20 but no need to remain in hospital if SNF accepting facility found and will d/c on IV-Abx for ongoing wound. SW called following SNF facilities attempting acceptance: [facility]- not accepting [place] pts at this time [facility]- declined pt due to wound needs [facility]- declined pt due to wound needs [facility]- no openings until end of this week or next week [facility]- not accepting wound vac pts at this time. [facility]- likely no openings. [facility]- not contracted with [facility]- full but call back or Tue to see if they have openings. [facility]- left msg [facility]- left [facility]- left msg [facility]- reviewing and will have an opening tomorrow . [facility]- reviewing, anticipate an opening, and left a msg this morning. Plan: SW to follow closely with above reviewing SNF's and if pt remains and has wound vac change tomorrow and still no accepting facility then need for finalizing home plan of [facility], [facility], and likely outpt wound care at [facility]. KERI Louis
--- NOTE | 2020-11-17 12:41 | CM.DPNOTE ---
Faxed referral packet per [facility] to [facility] and received fax conf. Sima Singh CM Asst.
--- NOTE | 2020-11-17 13:27 | PM.PN.1 ---
Subjective Subjective Date Patient Seen: 11/17/20 Time Patient Seen: 13:27 Interval history: Patient seen and evaluated this morning doing well no significant change in her health. Waiting decision on discharge for patient. Question bed availability for [facility]. Continuing to work through that process. Patient is nonambulatory requires significant caregiving help due to her MS. Wound VAC will need to be changed again tomorrow. Exam Vital Signs (past 8 hours): - 11/17/20 08:18 11/17/20 10:03 11/17/20 11:27 Temperature 98.3 F 98.0 F Pulse Rate 80 70 Respiratory Rate 14 16 Blood Pressure 134/69 141/86 H Pulse Oximetry 96 96 96 Oxygen Delivery Method Room Air Oxygen Flow Rate 0 Narrative Exam Narrative: Gen.: Alert no complaints resting comfortably in bed HEENT: Pupils equal round and reactive or mucosa is moist neck is supple Cardio: Regular rate and rhythm systolic murmur present Respiratory: Lungs are clear normal respiratory effort Abdomen: Soft nontender Extremities: Warm dry perfused Objective Labs Result Diagrams: 11/14/20 06:02 11/13/20 06:10 [facility] Social History household members: none Smoking Status: Never smoker alcohol intake: never Assessment & Plan Assessment & Plan narrative: Sepsis with shock requiring pressors resolved. Source of sepsis was infected ulcer of the back. Growing Proteus and Staph. Status post I&D. Antibiotics for 14 days. Ongoing wound care. 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 due for changing tomorrow. Can be done outpatient in longterm facility. Questionable concern about discharge excepting facility for [facility]. In whether not this can be done at [facility] outpatient. Multiple sclerosis longstanding patient is on ambulatory and wheelchair-bound Rheumatoid arthritis patient on methotrexate and steroids. Chronic and stable. Disposition and plan. Plan to longterm facility. Due to patient's age MS mainly being wheelchair-bound. This would be very difficult for patient to be home coming back and forth to the hospital for wound VAC changes. I think be the best interest of the patient to go to a longterm facility with attended care wound VAC changes in IV antibiotics. Quality VTE Deep Vein Thrombosis/Pulmonary Embolism Present on Admission: No
--- NOTE | 2020-11-17 16:49 | OT.IPNOTE ---
Attempted to see pt for OT services. Pt states she already performed her ADLs and has done her exercises for today. Pt will continue to benefit from OT services.
[2020-11-17] MEDS: LORazepam 0.5 MG TABLET PO (21:06)
[2020-11-17] MEDS: predniSONE 5 MG TABLET 2.5 MG PO (21:07)
[2020-11-18] VITALS (7 sets, daily range): BP systolic 94–129; BP diastolic 46–84; PULSE 65–78; RESP 14–19; TEMP 35.6–37.1; O2SAT 94–98
[2020-11-18] MEDS: CIPROFLOXACIN 400 MG/200 ML PIGGYBACK 200 MG IV ×2 (09:37→20:40)
[2020-11-18] MEDS: SODIUM CHLORIDE 0.9% FLUSH 10 ML IV ×2 (09:37→20:32)
[2020-11-18] MEDS: ATORVASTATIN 20 MG TABLET 40 MG PO (09:39)
[2020-11-18] MEDS: ENOXAPARIN 40 MG/0.4 ML SYRINGE SUBCUT (09:40)
[2020-11-18] MEDS: predniSONE 5 MG TABLET PO (09:40)
[2020-11-18] MEDS: DOCUSATE 100 MG CAPSULE PO ×2 (09:40→20:29)
[2020-11-18] MEDS: HYDROXYCHLOROQUINE 200 MG TABLET PO ×2 (09:40→20:28)
--- NOTE | 2020-11-18 12:35 | OT.IP.TRT ---
Current Diagnoses Sepsis, unspecified organism (11/09/20) Surgery Performed Operation Date: 11/11/20 12:30 Actual Procedures p I&D back with wound vac - Elizabeth Oro MD Occupational Therapy Treatment Note M2 OT-IP Current Condition Start: 11/13/20 11:26 Freq: Status: Active Protocol: Document 11/13/20 11:26 [facility] (Rec: 11/13/20 11:47 [facility] [id number]) Occupational Therapy Current Condition Current Condition Evaluation Date 11/13/20 Treatment Diagnosis Sepsis, back wound, MS, generalized muscle weakness Diagnosis Onset Date 11/09/20 M3 OT- IP Subjective and Pain Start: 11/13/20 11:26 Freq: Status: Active Protocol: Document 11/18/20 12:40 [facility] (Rec: 11/18/20 12:45 [facility] [id number]) OT- Subjective Occupational Therapy Visit Type Type Treatment Note Visit Start Time 12:25 Visit Stop Time 12:35 Total Visit Minutes 10 Occupational Therapy Visit Comments Patient Comments Pt agreed to do BUE exercises and work with OT. Patient/Caregiver Goals To go home. OT Pain Assessment Pain When Pain Assessed At Rest Pain Present Pain Present Denied Pain M5 OT- IP IADL's Start: 11/13/20 11:26 Freq: Status: Active Protocol: Document 11/13/20 11:26 [facility] (Rec: 11/13/20 11:47 [facility] [id number]) OT-Instrumental Activities of Daily Living Home Safety Awareness Awareness of Need for Assistance at Home Good Awareness Ability to Problem Solve Emergency Able to Problem Solve Situations Medication Management Medication Management No Deficits Identified Medication Management Comments Pt states take her own medications, mostly supplements which she has a a grooming travel bag. Money Management Money Management No Deficits Identified Money Management Comments Pt states pays her own bills. Meal Preparation Meal Preparation Caregiver Provides Assist Form Block Maker Form Block Maker Caregiver Provides Assist M6 OT- IP Functional Cognition Start: 11/13/20 11:26 Freq: Status: Active Protocol: Document 11/18/20 12:40 [facility] (Rec: 11/18/20 12:45 [facility] [id number]) Cognitive Factors Limiting Selfcare Function Cognitive Ability Level of Alertness Alert Patient Orientation Name,Age,Birthday,Month,Date, Year,Day of Week,Place, Situation Attention Span Ability Capable of Focused Attention, Capable of Sustained Attention Ability to Follow Commands Able to Follow One Step Commands Memory Description Short Term Impaired Safety Awareness No Deficits Not OT- Gait Assessment Comments Gait Ability Comments Pt does not walk. OT- Balance Assessment Sitting Balance and Reactions Static Sitting Balance Ability Poor M8 OT- IP Objective Assessments Start: 11/13/20 11:26 Freq: Status: Active Protocol: Document 11/18/20 12:40 [facility] (Rec: 11/18/20 12:45 [facility] [id number]) OT Gross Range of Motion Upper Extremity Range of Motion Assessment Bilaterally Impaired ROM Impairments RUE shoulder flexion 0-110, LUE shoulder scaption 0-80 OT Strength Comments Strength Comments Able to give pt theraputty to work on gentle strengthening and stretching for her hands. Pt has good awareness to do what she can but not overdo it do to her RA. M9 OT- IP Assessment and Plan Start: 11/13/20 11:26 Freq: Status: Active Protocol: Document 11/18/20 12:40 [facility] (Rec: 11/18/20 12:45 [facility] [id number]) OT Summary Assessment and Plan Potential Rehabilitation Potential Good Analytic Complexity at Evaluation Moderate Summary OT Impairments Pain,Range of Motion,Strength, Balance,Functional Mobility, Self-Feeding,Grooming,Dressing ,Toileting,Bathing,Toilet Transfers,Shower Transfers, Activity Tolerance Progress Towards Goals Progressing Toward Goals,Slow Progress due to Medical Issues Assessment Summary Pt improving with her AROM for BUE and now able to do more for grooming needs. Pt looking to go to SNF versus home if able. Goals Self-Feeding Goal Standby Assistance Grooming Goal Standby Assistance Days to Meet Goals 10 Frequency of Treatment Frequency Of Treatment Once a Day Treatment Plan OT Treatment Plan ADL Training,Functional Mobility,Patient/Family Education,Discharge Planning Other Treatment Recommendations and Next grooming Treatment Focus Discharge Recommendations OT Discharge Recommendations Home with Assistance,Home Health,SNF Rehab,Home vs SNF Transportation Needs at Discharge Wheelchair/Cabulance,Stretcher /Ambulance
--- NOTE | 2020-11-18 13:37 | PM.PN.1 ---
Subjective Subjective Date Patient Seen: 11/18/20 Time Patient Seen: 13:38 Interval history: Patient seen and evaluated doing well. Patient is a little uncomfortable in bed she says stools on quite right. She is eating well. Wondering about placement. She says she has preferred to stay in [place] but she understands that there is decreased bed availability right now. Has no complaints of pain. Vital signs blood pressure is a little bit low today which is not unusual for her. Exam Vital Signs (past 8 hours): - 11/18/20 08:50 11/18/20 13:04 Temperature 97.5 F L 98.3 F Pulse Rate 65 71 Respiratory Rate 16 15 Blood Pressure 109/46 L 122/57 L Pulse Oximetry 97 98 Oxygen Delivery Method Room Air Oxygen Flow Rate 0 Narrative Exam Narrative: Elderly female sitting in bed. HEENT pupils equal round and reactive or mucosa is moist Cardio: S1-S2 systolic murmur present. Respiratory: Lungs are clear no wheezes or crackles normal respiratory effort Abdomen: Soft nontender Extremities: Full range of motion Objective Labs Result Diagrams: 11/14/20 06:02 11/13/20 06:10 [facility] Social History household members: none Smoking Status: Never smoker alcohol intake: never Assessment & Plan Assessment & Plan narrative: Sepsis with shock requiring pressors resolved due to infected ulcer of back cultures growing Proteus and Staph epididymis. Stable getting wound VAC change today. Working on senior living placement. Continue with IV antibiotics. Back ulcer stage IV requiring surgical debridement . Ongoing wound care. Multiple sclerosis longstanding patient is on ambulatory and wheelchair-bound patient requires a lot of assistance at home for ambulation and moving. Rheumatoid arthritis patient on methotrexate and steroids. No changes. Disposition and plan. Would hope patient could be discharged to senior living facility a think this will be the best place for patient to receive care including wound care IV antibiotics as opposed to going home. Bed available is decreased due to the COVID virus. Quality VTE Deep Vein Thrombosis/Pulmonary Embolism Present on Admission: No
--- NOTE | 2020-11-18 14:22 | PC.NURSE ---
CARY Arana, assisted with new wound vac dressing change. Old dressing removed. New dressing attached and vacuum seal complete. Patient tolerated well.
--- NOTE | 2020-11-18 14:49 | CM.DPC ---
DCP Ongoing SNF placement: Per Dr. Haywood, pt remains medically stable to d/c to SNF once SNF placement secured and discussed if no SNF available/willing to accept possible d/c home with outpt wound care and HH and [facility]. Dr. Haywood feels SNF would be preferred as pt had significant wound and ongoing wound care needs but waiting for final SNF reviews today to determine if they can accept. Per RN, Dr. Oro Surgeon not planning to complete wound vac change herself today as bedside change on Tuesday went well and order placed for staff mechanical engineer to perform today and RN able to complete with contingents supervisor bedside and went well but wound is significant. SW attempted to get a hold of Dr. Oro to clarify how long wound vac needed and if possible for outpt wound care if SNF not secured. Left msg. ELAINE called last two SNF's reviewing and contracted with [facility]: [facility]- called 3 times and admissions Nikki profusely apologizes as crazy day and promise to review tonight. [facility]- waiting for their DNS to arrive in the building to review pt to determine if they can accept. ELAINE spoke to Gladis at [facility] who is a building services coordinator and she states that they have found all over [facility] a shortage of SNF beds along with hospital transfer beds. Din states if SNF found that is not contracted they are willing to quickly write up a One Time auth. [facility] has been completed. Plan: [facility] need [facility] [facility] auth vs further discussion with MD regarding home with [facility], [facility], and [facility]. KERI Louis
--- NOTE | 2020-11-18 15:59 | PM.PN.1 ---
Exam Vital Signs (past 8 hours): - 11/18/20 08:50 11/18/20 11:56 Temperature 97.5 F L 98.3 F Pulse Rate 65 71 Respiratory Rate 16 15 Blood Pressure 109/46 L 122/57 L Pulse Oximetry 97 98 Oxygen Delivery Method Room Air Oxygen Flow Rate 0 Objective Labs Result Diagrams: 11/14/20 06:02 11/13/20 06:10 [facility] Social History household members: none Smoking Status: Never smoker alcohol intake: never Assessment & Plan Assessment & Plan narrative: Patient tolerates wound vac change at bedside. No further surgical intervention required. Surgery to sign off. Quality VTE Deep Vein Thrombosis/Pulmonary Embolism Present on Admission: No
[2020-11-18] MEDS: LORazepam 0.5 MG TABLET PO (20:27)
[2020-11-18] MEDS: predniSONE 5 MG TABLET 2.5 MG PO (20:28)
--- NOTE | 2020-11-18 21:29 | PC.NURSE ---
VSS, slightly hypotensive at high 90's/70's. Tolerated ABO's well. PICC flushed well, dressing C/D/I. Wound vac putting out rust colored fluid, drsg in place with no drainage. Pt eating drinking and able to sleep. Denies pain. BM today.
[2020-11-19 04:00] VITALS: BP 104/52; PULSE 68; RESP 16; TEMP 36; O2SAT 96
[2020-11-19 08:00] VITALS: BP 127/59; PULSE 76; RESP 16; TEMP 36.6; O2SAT 94
[2020-11-19] MEDS: ATORVASTATIN 20 MG TABLET 40 MG PO (09:12)
[2020-11-19] MEDS: predniSONE 5 MG TABLET PO (09:12)
[2020-11-19] MEDS: ENOXAPARIN 40 MG/0.4 ML SYRINGE SUBCUT (09:12)
[2020-11-19] MEDS: HYDROXYCHLOROQUINE 200 MG TABLET PO ×2 (09:12→20:30)
[2020-11-19] MEDS: CIPROFLOXACIN 400 MG/200 ML PIGGYBACK 200 MG IV ×2 (09:14→20:28)
[2020-11-19] MEDS: SODIUM CHLORIDE 0.9% FLUSH 10 ML IV ×2 (09:15→20:28)
--- NOTE | 2020-11-19 10:10 | OT.IP.TRT ---
Current Diagnoses Sepsis, unspecified organism (11/09/20) Surgery Performed Operation Date: 11/11/20 12:30 Actual Procedures p I&D back with wound vac - Elizabeth Oro MD Occupational Therapy Treatment Note M2 OT-IP Current Condition Start: 11/13/20 11:26 Freq: Status: Active Protocol: Document 11/13/20 11:26 [facility] (Rec: 11/13/20 11:47 [facility] [id number]) Occupational Therapy Current Condition Current Condition Evaluation Date 11/13/20 Treatment Diagnosis Sepsos, back wound, MS, generalized muscle weakness Diagnosis Onset Date 11/09/20 M3 OT- IP Subjective and Pain Start: 11/13/20 11:26 Freq: Status: Active Protocol: Document 11/19/20 10:05 [facility] (Rec: 11/19/20 10:10 [facility] [id number]) OT- Subjective Occupational Therapy Visit Type Type Treatment Note Visit Start Time 09:25 Visit Stop Time 09:35 Total Visit Minutes 10 Occupational Therapy Visit Comments Patient Comments Pt agreed to work with OT for theraband exercises to help improve arm strength, mainly for biceps. Patient/Caregiver Goals To go home. OT Pain Assessment Pain When Pain Assessed At Rest Pain Present Pain Present Denied Pain M9 OT- IP Assessment and Plan Start: 11/13/20 11:26 Freq: Status: Active Protocol: Document 11/19/20 10:05 [facility] (Rec: 11/19/20 10:10 [facility] [id number]) OT Summary Assessment and Plan Potential Rehabilitation Potential Good Analytic Complexity at Evaluation Moderate Summary OT Impairments Pain,Range of Motion,Strength, Balance,Functional Mobility, Self-Feeding,Grooming,Dressing ,Toileting,Bathing,Toilet Transfers,Shower Transfers, Activity Tolerance Progress Towards Goals Progressing Toward Goals,Slow Progress due to Medical Issues Assessment Summary Pt given theraband so able to do exercises in bed especially to help strengthen her biceps to help increased her independence and ease to do her hair. Pt to either to SNF versus home with assist and HH. Goals Self-Feeding Goal Standby Assistance Grooming Goal Standby Assistance Days to Meet Goals 9 Frequency of Treatment Frequency Of Treatment Once a Day Treatment Plan OT Treatment Plan ADL Training,Functional Mobility,Patient/Family Education,Discharge Planning Other Treatment Recommendations and Next grooming Treatment Focus Discharge Recommendations OT Discharge Recommendations Home with Assistance,Home Health,SNF Rehab,Home vs SNF Transportation Needs at Discharge Wheelchair/Cabulance,Stretcher /Ambulance
--- NOTE | 2020-11-19 10:24 | CM.DPNOTE ---
Faxed swing bed referral packets to: [facility]; [facility] at [facility]'s request. Received fax conf. Sima Singh CM Asst.
[2020-11-19 11:16] VITALS: BP 124/69; PULSE 76; RESP 18; TEMP 36.5; O2SAT 94
--- NOTE | 2020-11-19 12:53 | PM.PN.1 ---
Subjective Subjective Date Patient Seen: 11/19/20 Time Patient Seen: 07:00 Interval history: Patient doing well no new complaints. Eating well vital signs have been stable. Has questions about care plans and when she is can be discharged either care facility in home. Wound VAC changed yesterday by surgery appreciated. Medically and surgically stable at this point. Awaiting for placement bed in assisted facility. Exam Vital Signs (past 8 hours): - 11/19/20 08:00 11/19/20 11:16 Temperature 97.8 F 97.7 F Pulse Rate 76 76 Respiratory Rate 16 18 Blood Pressure 127/59 L 124/69 Pulse Oximetry 94 94 Oxygen Delivery Method Room Air Oxygen Flow Rate 0 Narrative Exam Narrative: General: Alert good historian she has no complaints of discomfort HEENT: Pupils equal round and reactive or mucosa is moist Cardio: S1-S2 regular rate and rhythm Respiratory: Normal respiratory effort Abdomen: Soft nontender Skin: Wound VAC in place. Extremities warm dry and perfused Objective Labs Result Diagrams: 11/14/20 06:02 11/13/20 06:10 PFS Social History household members: none Smoking Status: Never smoker alcohol intake: never Assessment & Plan Assessment & Plan narrative: Sepsis with shock requiring pressors resolved due to infected ulcer of back cultures growing Proteus and Staph epididymis on ciprofloxacin IV. 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 will need ongoing VAC replacement. Can be done by assisted facility or wound care. Multiple sclerosis longstanding patient is on ambulatory and wheelchair-bound Rheumatoid arthritis patient on methotrexate and steroids. Chronic and stable. Disposition and plan. Continue with the wound care for stage IV ulcer of back. Discussed discharge plan for assisted facility and readmission and outpatient wound VAC changes or whether she needs to be prolonged stay in hospital. Check electrolytes CBC tomorrow Quality VTE Deep Vein Thrombosis/Pulmonary Embolism Present on Admission: No
[2020-11-19 16:00] VITALS: BP 93/51; PULSE 77; RESP 18; TEMP 36.7; O2SAT 93
--- NOTE | 2020-11-19 16:18 | CM.DPNOTE ---
DCP Note Attempted [facility] and [facility] swing beds- No Attempted [facility] throughout the day; inevitably no d/t emergency low staffing Began process to secure a wound vac through [employer], d/t patient's [place] coverage. Completed some of the paper order form. Dr Haywood or rounding provider will need to complete the physician's portion of this form, in addition, will need to complete an order/prescription for the wound vac and sign All above, order and completed ppk will need to be faxed to [facility] in order for [place] to authorize wound vac and for delivery for expected DC home tomorrow 8.19.21 KERI Sam
--- NOTE | 2020-11-19 16:27 | CM.DPNOTE ---
Addendum entered by KERI Ontiveros 11/20/20 09:25: This is a particularly challenging time to secure SNF beds d/t the COVID-19 pandemic and critically low staffing at many facilities, and so, patient will inevitably need to return home; will discuss in further detail w/patient and the team caring for patient today. Dr Haywood aware and has completed/signed ppk to begin home wound vac auth request through [facility]. Beckie Rice, wound care and hyper[facility]ic medicine center, [facility], made aware of DCP efforts Original Note: DCP Note In addition- Spoke again w/ Fela at [facility] MV no Left messages for the following facilities w/no call back: [facility] Agusto
[2020-11-19 19:40] VITALS: BP 89/40; PULSE 74; RESP 16; TEMP 36.6
[2020-11-19] MEDS: DOCUSATE 100 MG CAPSULE PO (20:27)
[2020-11-19] MEDS: LORazepam 0.5 MG TABLET PO (20:27)
[2020-11-19] MEDS: predniSONE 5 MG TABLET 2.5 MG PO (20:28)
[2020-11-19 22:00] VITALS: BP 101/41; PULSE 71
[2020-11-20 00:30] VITALS: BP 87/42; PULSE 68; RESP 18; TEMP 37.3; O2SAT 95
[2020-11-20 04:35] VITALS: BP 114/61; PULSE 74; RESP 17; TEMP 36.1; O2SAT 94
[2020-11-20 05:39] LABS: Add Manual Diff / Slide Review NO; Basophils Absolute Auto 100 /uL (0-100); Basophils Percent Auto 1.4 % (0-2); Eosinophils Absolute Auto 400 /uL (0-450); Eosinophils Percent Auto 4.7 % (2-4); Hematocrit 33.2 % (36-46); Hemoglobin 10.9 g/dL (12.0-16.0); Lymphocytes Absolute Auto 2600 /uL (1100-4500); Lymphocytes Percent Auto 29.9 % (25-40); Mean Corpuscular HGB Conc 32.9 % (30-36); Mean Corpuscular Hemoglobin 31.4 PG (26-34); Mean Corpuscular Volume 95.4 fL (80-100); Monocytes Absolute Auto 800 /uL (0-900); Monocytes Percent Auto 9.6 % (3-14); Neutrophils Absolute Auto 4700 /uL (1500-7000); Neutrophils Percent Auto 54.4 % (50-75); Platelet Count 279 X10^3/uL (150-400); Red Blood Cell Count 3.48 X10^6/uL (4.0-5.2); Red Cell Distribution Width 14.2 % (11.6-14.8); White Blood Cell Count 8.7 X10^3/uL (4.5-11.0)
[2020-11-20 05:44] LABS: BUN Creatinine Ratio 37.2 (6-22); Blood Urea Nitrogen 16 mg/dL (7-17); Calcium 8.8 mg/dL (8.4-10.2); Carbon Dioxide 32 mmol/L (22-32); Chloride 103 mmol/L (98-107); Estimated Glomerular Filt Rate > 60.0 mL/min (>60); Glucose 95 mg/dL (80-110); HEMOLYSIS < 15 (0-50); Potassium 3.9 mmol/L (3.4-5.1); Sodium 138 mmol/L (137-145)
[2020-11-20 08:00] VITALS: BP 99/45; PULSE 70; RESP 17; TEMP 36.6; O2SAT 95
[2020-11-20] MEDS: HYDROXYCHLOROQUINE 200 MG TABLET PO ×2 (08:49→21:53)
[2020-11-20] MEDS: SODIUM CHLORIDE 0.9% FLUSH 10 ML IV ×2 (08:49→21:53)
[2020-11-20] MEDS: ATORVASTATIN 20 MG TABLET 40 MG PO (08:49)
[2020-11-20] MEDS: predniSONE 5 MG TABLET PO (08:49)
[2020-11-20] MEDS: ENOXAPARIN 40 MG/0.4 ML SYRINGE SUBCUT (08:49)
[2020-11-20] MEDS: CIPROFLOXACIN 400 MG/200 ML PIGGYBACK 200 MG IV (08:56)
--- NOTE | 2020-11-20 09:20 | OT.IP.TRT ---
Current Diagnoses Sepsis, unspecified organism (11/09/20) Surgery Performed Operation Date: 11/11/20 12:30 Actual Procedures p I&D back with wound vac - Elizabeth Oro MD Occupational Therapy Treatment Note M2 OT-IP Current Condition Start: 11/13/20 11:26 Freq: Status: Active Protocol: Document 11/13/20 11:26 [facility] (Rec: 11/13/20 11:47 [facility] [id number]) Occupational Therapy Current Condition Current Condition Evaluation Date 11/13/20 Treatment Diagnosis Sepsis, back wound, MS, generalized muscle weakness Diagnosis Onset Date 11/09/20 M3 OT- IP Subjective and Pain Start: 11/13/20 11:26 Freq: Status: Active Protocol: Document 11/20/20 09:22 [facility] (Rec: 11/20/20 09:26 [facility] [id number]) OT- Subjective Occupational Therapy Visit Type Type Treatment Note Visit Start Time 09:10 Visit Stop Time 09:20 Total Visit Minutes 10 Occupational Therapy Visit Comments Patient Comments Pt agreed to work with OT while finishing up breakfast. Patient/Caregiver Goals To go home. OT Pain Assessment Pain When Pain Assessed At Rest Pain Present Pain Present Denied Pain M4 OT- IP ADL's Start: 11/13/20 11:26 Freq: Status: Active Protocol: Document 11/20/20 09:22 [facility] (Rec: 11/20/20 09:26 [facility] [id number]) OT PKG-Daeh-Xasnqgn General Evaluation Self-Feeding Ability Independent Comments OT Self-Feeding Comments Pt able to eat on her own after set-up. M5 OT- IP IADL's Start: 11/13/20 11:26 Freq: Status: Active Protocol: Document 11/13/20 11:26 [facility] (Rec: 11/13/20 11:47 [facility] [id number]) OT-Instrumental Activities of Daily Living Home Safety Awareness Awareness of Need for Assistance at Home Good Awareness Ability to Problem Solve Emergency Able to Problem Solve Situations Medication Management Medication Management No Deficits Identified Medication Management Comments Pt states take her own medications, mostly supplements which she has a a grooming travel bag. Money Management Money Management No Deficits Identified Money Management Comments Pt states pays her own bills. Meal Preparation Meal Preparation Caregiver Provides Assist Fire Management Officer Fire Management Officer Caregiver Provides Assist M6 OT- IP Functional Cognition Start: 11/13/20 11:26 Freq: Status: Active Protocol: Document 11/20/20 09:22 [facility] (Rec: 11/20/20 09:26 [facility] [id number]) Cognitive Factors Limiting Selfcare Function Cognitive Comments Cognitive Assessment Comments Pt appears at baseline for needs. . M9 OT- IP Assessment and Plan Start: 11/13/20 11:26 Freq: Status: Active Protocol: Document 11/20/20 09:22 [facility] (Rec: 11/20/20 09:26 [facility] [id number]) OT Summary Assessment and Plan Potential Rehabilitation Potential Good Analytic Complexity at Evaluation Moderate Summary OT Impairments Pain,Range of Motion,Strength, Balance,Functional Mobility, Self-Feeding,Grooming,Dressing ,Toileting,Bathing,Toilet Transfers,Shower Transfers, Activity Tolerance Progress Towards Goals Progressing Toward Goals,Slow Progress due to Medical Issues Assessment Summary Able to go over exercise with pt of theraputty and theraband and give her another band which is looser in tension. Pt aware that most likely she will be going home soon. At this time due to her decreased trunk control and back wound would be best for pt to go home via stretcher. Goals Grooming Goal Standby Assistance Days to Meet Goals 5 Frequency of Treatment Frequency Of Treatment Once a Day Treatment Plan OT Treatment Plan ADL Training,Functional Mobility,Patient/Family Education,Discharge Planning Other Treatment Recommendations and Next grooming Treatment Focus Discharge Recommendations OT Discharge Recommendations Home with Assistance,Home Health,SNF Rehab,Home vs SNF Transportation Needs at Discharge Stretcher/Ambulance
--- NOTE | 2020-11-20 10:19 | CM.DPNOTE ---
Addendum entered by KERI Ontiveros 11/20/20 11:33: TC to Sanjeev, Negative Pressure Wound Therapy (NPWT) P# [phone] Customer Service, confirmed by Sanjeev mccormickumer service rep that order form had been received and was now being reviewed and processed. Timeline of approval and delivery unknown, rep confirmed that patient's hospital room was down as delivery address. Original Note: Faxed clinicals, wound vac order and [facility] NPWT form to Sanjeev [phone] at Jyoti's request. Received fax conf. Sima Singh CM Asst.
[2020-11-20 11:44] VITALS: BP 111/43; PULSE 79; RESP 17; TEMP 36.5; O2SAT 96
--- NOTE | 2020-11-20 12:36 | CM.DPNOTE ---
Nguyen from [facility] called and said the negative wound care vac will be delivered in the next 3-4 hours to pt. room, #[id number], before she is discharged. Her number [phone]. I will pass this information to Jyoti. Sima Singh CM Asst.
--- NOTE | 2020-11-20 13:13 | PM.PN.1 ---
Subjective Subjective Date Patient Seen: 11/20/20 Time Patient Seen: 13:13 Interval history: Patient doing well no new complaints. Working with discharge planning on placement versus home health with the wound care and wound VAC replacement. Reviewed laboratory tests all look good. Vital signs are stable some mild hypotension at times. Eating well. Exam Vital Signs (past 8 hours): - 11/20/20 08:00 11/20/20 11:44 Temperature 98 F 97.7 F Pulse Rate 70 79 Respiratory Rate 17 17 Blood Pressure 99/45 L 111/43 L Pulse Oximetry 95 96 Oxygen Delivery Method Room Air Oxygen Flow Rate 0 Narrative Exam Narrative: Gen.: Alert good historian no apparent distress HEENT: Pupils equal round and reactive or mucosa is moist neck is supple Cardio: S1-S2 systolic murmur Respiratory: Normal respiratory effort Abdomen: Soft nontender Extremities: Full range of motion Objective Labs Result Diagrams: 11/20/20 05:25 11/20/20 05:25 Labs: Laboratory Results - last 24 hr 11/20/20 11/20/20 05:25 05:25 WBC 8.7 RBC 3.48 L Hgb 10.9 L Hct 33.2 L MCV 95.4 MCH 31.4 MCHC 32.9 RDW 14.2 Plt Count 279 Neut % (Auto) 54.4 Lymph % (Auto) 29.9 Stark % (Auto) 9.6 Eos % (Auto) 4.7 H Baso % (Auto) 1.4 Neut # (Auto) 4700 Lymph # (Auto) 2600 Stark # (Auto) 800 Eos # (Auto) 400 Baso # (Auto) 100 Sodium 138 Potassium 3.9 Chloride 103 Carbon Dioxide 32 BUN 16 Creatinine 0.43 L Estimated GFR > 60.0 BUN/Creatinine Ratio 37.2 H Glucose 95 Calcium 8.8 PFSH Social History household members: none Smoking Status: Never smoker alcohol intake: never Assessment & Plan Assessment & Plan narrative: Sepsis with shock requiring pressors resolved due to infected ulcer of back cultures growing Proteus and Staph epididymis DC IV antibiotics start on oral antibiotics remove PICC line today. 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 filled out paperwork today for wound VAC placement at home. [facility] [place] [facility] not turning out to be a good option. Will continue to work with discharge planning. Multiple sclerosis longstanding patient is on ambulatory and wheelchair-bound Rheumatoid arthritis patient on methotrexate and steroids. Chronic and stable. Disposition and plan. Stop IV ciprofloxacin start oral ciprofloxacin. Will need another 5 days of this. Blood counts electrolytes are stable. Working on discharge planning. Patient medically stable will we need wound care. Quality VTE Deep Vein Thrombosis/Pulmonary Embolism Present on Admission: No
--- NOTE | 2020-11-20 15:04 | CM.DPNOTE ---
Addendum entered by Amparo Dias R.N. 11/20/20 15:36: Called [facility]. Their phone number is: [phone]. Left a message with Bao in admissions to see if there are openings. Attempted [facility]. They are full. Called [facility]. Their phone number is: [phone]. They have female beds available and do one time single contracts with [facility]. Their fax number is: [phone]. Faxed over face sheet, H&P, and some recent progress notes. Will need to call their intake department to follow up with this referral. Their phone number is: [phone] Original Note: DCP: Assisting KERI Montes with her case regarding this patient and attempting to locate skilled facility for her. Patient is [facility], and also inquiring if a one time agreement can be obtained out of network, with these facilities. This landscape architect and planner so far has contacted these facilities: [facility] in [place]: Was encourage to fax referral: [phone]. [facility] in [place]: Nikki in admissions will review, should have an answer tomorrow. [facility] in [place]: Left a message with Vilma to see if they have availabilities. [facility]: Left a voice mail with Sia in admissions to see if they have availabilities [facility]: Left a message with Kevin in admissions to see if they have availabilities. [facility]: Nikki in admissions indicated that they are full. [facility] in [place]: Left a message with Geetha to confirm that they can't accept until Dec. [facility]: Leonor in admissions stated that they are full until next week. [place]: Do not take sparta, and will not establish one time agreements. Will continue to assist with search, may need to go to the [place] area. Amparo Dias RN/Heater Operator
--- NOTE | 2020-11-20 15:06 | CM.DPNOTE ---
Updated DCP Efforts In the attempt to coordinate patient's DCP home today, encountered numerous obstacles. According to conversations w/ patient, patient's dtr Jonathon, iván Sadler and w/ CARY Lord: Patient has 131 hrs of [facility] cg monthly, Tuesday and Tuesday she has one cg for 2 hours each day. M-F patient has cgs come approx 4 hrs in the AM and 2 hours before bed. Patient has numerous supportive friends and family, however, all appear to have their own mental and physical disabilities preventing them from providing patient with the physical, skilled nursing care she would require at home. staff are currently using a david lift to get patient from her bed to the chair. Patient has the actual wound vac and bag attached to her back, then has the tube and box; this MARKETING LEAD discussed w/patient, how would she mobilize to the BR if a cg is not present? Patient cannot self transfer at this time. Iván Sadler states meals will not be an issue since friends can grocery shop and drop off food/meals; and patient is agreeable to getting meals on wheels upon DC. Discussed f/u care w/ Beckie Rice, systems programmer, wound care- she is holding a spot for patient to establish as a new patient/ get wound vac changed, for next Tuesday11.28.20. Beckie hopeful that RN can change the wound vac in between DC home and this appointment. Transport home via BLS suggested by JAIME Ellison and RN; patient might require a BLS to her wound care appt as well and is not sure how to arrange this? Patient typically uses [facility] wheelchair transport. CARY Lord unsure if patient can tolerate a wheelchair van with wound vac on her back. CARY Lord also concerned that patient has not been getting proper shanice-care, patient has skin breakdown from wet briefs and is hopeful patient and her cgs can keep skin clean, dry and dressings changed properly. Awaiting CB from [facility] to determine RN availability for wound vac change. DC home does not appear safe at this time; patient does not have the proper care in place to meet her increased care needs today. This MARKETING LEAD will place call to [facility] Penny# [phone] to review DCP barriers and request reassessment of need POONAM to increase care giving hours. Meanwhile, CM team will continue to dual plan and attempt SNF placement while reviewing options for getting patient home KERI Sam
[2020-11-20 19:53] VITALS: BP 102/54; PULSE 70
[2020-11-20 20:01] VITALS: TEMP 36.6; O2SAT 94
[2020-11-20] MEDS: LORazepam 0.5 MG TABLET PO (21:53)
[2020-11-20] MEDS: predniSONE 5 MG TABLET 2.5 MG PO (21:53)
[2020-11-20] MEDS: CIPROFLOXACIN 250 MG TABLET 500 MG PO (21:58)
--- NOTE | 2020-11-20 23:20 | PC.NURSE ---
Patient alert and oriented, able to make needs known. In bed at this time, repositioned. Dressing intact. Wound vac running @ 125. Denied pain this shift.
--- NOTE | 2020-11-20 23:28 | PC.NURSE ---
Patient is alert and oriented, able to make needs known. In bed at this time, repositioned. Dressing to back is intact with wound vac running @125. Denied pain. Tolerating medications.
[2020-11-21] VITALS (8 sets, daily range): BP systolic 86–106; BP diastolic 41–58; PULSE 65–73; RESP 15–18; TEMP 35.8–36.8; O2SAT 94–97
--- NOTE | 2020-11-21 00:57 | PC.NURSE ---
Patient is oriented but drowsy. Breath sounds diminished at bases but CTA with RA sat of 96%. HRR. BP low at 92/52 and has been trending low. Denied nausea. BT hypoactive and is reportedly incontinent of stool. Incontinent of urine. Is being repositioned q2h as not moving herself but is able to assist. Wound vac to left scapula intact and to 125mmHg. Groins reddened and coccyx/buttocks purple discoloration. Is able to move LE but minimally related to MS. Is wearing bilateral calf SCD's. Denied pain. Fall risk score is high and bed alarm is activated.
[2020-11-21] MEDS: CIPROFLOXACIN 250 MG TABLET 500 MG PO ×2 (06:31→20:09)
--- NOTE | 2020-11-21 07:27 | P.PN_ITS ---
Subjective Subjective Date Patient Seen: 11/21/20 Time Patient Seen: 07:28 Interval history: Uneventful day yesterday Plans were for discharge home but becomes clear patient is not at this time safe to return home as she still requires use of a lift for transfers which of course is going to severely limit her ability to be at home. Has lots of support but does not have 24/7 support at home. Wound VAC is in place with plans for change in wound care clinic next Tuesday the 28 of November Still with intermittent modest hypotension which has been the case for her throughout her hospitalization and appears to be normal for her. Exam Vital Signs (past 8 hours): - 11/21/20 00:05 11/21/20 04:00 Temperature 96.5 F L 98.3 F Pulse Rate 71 65 Respiratory Rate 17 16 Blood Pressure 92/52 L 92/41 L Pulse Oximetry 96 96 Oxygen Delivery Method Room Air Oxygen Flow Rate 0 Objective Labs Result Diagrams: 11/20/20 05:25 11/20/20 05:25 [facility] Social History household members: none Smoking Status: Never smoker alcohol intake: never Assessment & Plan Assessment & Plan narrative: 1. Sepsis with shock requiring pressors due to ulceration on back-now resolved 2. Ulceration on back secondary to immobility/pressure ulcer-continue with a ntibiotics. Wound VAC in place. Is status post surgical debridement times 2. Need to continue to work to decompress this area on a long-term basis, which basically means she needs additional assistance with movement and transfers since it appears she spends much of her day on her recliner at home. 3. Multiple sclerosis-patient wheelchair-bound and at this time unable to assist with transfers requiring use of overhead lift in the hospital. Did appears to me that she has possibly reach the end of her ability to be managed in the home setting certainly without significant additional assistance 4. Rheumatoid arthritis-patient continues on methotrexate and steroids. No change Patient is medically ready for discharge from the hospital but to this point we have been unable to come up with a safe discharge plan. Patient would optimally be served by discharge to halfway where they can continue to manage her care while continuing to treat her stage IV pressure ulcer on her back. Discharge home might be feasible should we be able to find additional resources for care including more presence and assistance with transfers etcetera at home. It appears patient has been at home with caregivers present twice a day for assistance but basically stuck on her recliner in-between these visits. This is not a sustainable situation and is what led to her pressure ulceration as above. Patient is ready for discharge when a safe plan for discharge can be determined. Continue to work with care management team regarding this. Basically patient failed at home because of her disability resulting in the pressure sore and also concerns about personal hygiene etcetera. Returning her to that environment without an upgrade in care 25/10 would be inappropriate. Note: Greater than 20 minutes was spent evaluating the patient on the floor, including examining the patient, discussing clinical course with clinical and nursing staff, reviewing clinical course in the computer, preparing documentation and writing orders for continued management of care, discussing status with family as appropriate, reviewing plans for the next 24 hours with both patient/family and nursing staff as appropriate. Quality VTE Deep Vein Thrombosis/Pulmonary Embolism Present on Admission: No
[2020-11-21] MEDS: ENOXAPARIN 40 MG/0.4 ML SYRINGE SUBCUT (08:31)
[2020-11-21] MEDS: ATORVASTATIN 20 MG TABLET 40 MG PO (08:31)
[2020-11-21] MEDS: predniSONE 5 MG TABLET PO (08:32)
[2020-11-21] MEDS: DOCUSATE 100 MG CAPSULE PO ×2 (08:32→20:18)
[2020-11-21] MEDS: SODIUM CHLORIDE 0.9% FLUSH 10 ML IV ×2 (08:32→20:13)
[2020-11-21] MEDS: HYDROXYCHLOROQUINE 200 MG TABLET PO ×2 (08:33→20:12)
--- NOTE | 2020-11-21 11:30 | OT.IP.TRT ---
Current Diagnoses Sepsis, unspecified organism (11/09/20) Surgery Performed Operation Date: 11/11/20 12:30 Actual Procedures p I&D back with wound vac - Elizabeth Oro MD Occupational Therapy Treatment Note M2 OT-IP Current Condition Start: 11/13/20 11:26 Freq: Status: Active Protocol: Document 11/13/20 11:26 [facility] (Rec: 11/13/20 11:47 [facility] [id number]) Occupational Therapy Current Condition Current Condition Evaluation Date 11/13/20 Treatment Diagnosis Sepsis, back wound, MS, generalized muscle weakness Diagnosis Onset Date 11/09/20 M3 OT- IP Subjective and Pain Start: 11/13/20 11:26 Freq: Status: Active Protocol: Document 11/21/20 12:47 [facility] (Rec: 11/21/20 12:54 [facility] [id number]) OT- Subjective Occupational Therapy Visit Type Type Treatment Note Visit Start Time 11:30 Visit Stop Time 11:38 Total Visit Minutes 8 Occupational Therapy Visit Comments Patient Comments Pt sitting up in the recliner. Patient/Caregiver Goals To go home. OT Pain Assessment Pain When Pain Assessed At Rest Pain Present Pain Present Denied Pain M4 OT- IP ADL's Start: 11/13/20 11:26 Freq: Status: Active Protocol: Document 11/20/20 09:22 [facility] (Rec: 11/20/20 09:26 [facility] [id number]) OT LBW-Mien-Eadigno General Evaluation Self-Feeding Ability Independent Comments OT Self-Feeding Comments Pt able to eat on her own after set-up. M5 OT- IP IADL's Start: 11/13/20 11:26 Freq: Status: Active Protocol: Document 11/13/20 11:26 [facility] (Rec: 11/13/20 11:47 [facility] [id number]) OT-Instrumental Activities of Daily Living Home Safety Awareness Awareness of Need for Assistance at Home Good Awareness Ability to Problem Solve Emergency Able to Problem Solve Situations Medication Management Medication Management No Deficits Identified Medication Management Comments Pt states take her own medications, mostly supplements which she has a a grooming travel bag. Money Management Money Management No Deficits Identified Money Management Comments Pt states pays her own bills. Meal Preparation Meal Preparation Caregiver Provides Assist Jelly Maker Jelly Maker Caregiver Provides Assist M6 OT- IP Functional Cognition Start: 11/13/20 11:26 Freq: Status: Active Protocol: Document 11/21/20 12:47 [facility] (Rec: 11/21/20 12:54 [facility] [id number]) Cognitive Factors Limiting Selfcare Function Cognitive Comments Cognitive Assessment Comments Pt appears at baseline for needs. Pt states not sure if she is able to stand with assist at this time, as prior her caregivers were just standing her up as she would hang onto them for transfers. Pt states does not have her shoes here if which she uses during transfers. M7 OT- IP Mobility and Balance Start: 11/13/20 11:26 Freq: Status: Active Protocol: Document 11/21/20 12:47 [facility] (Rec: 11/21/20 12:54 [facility] [id number]) OT-Transfer Assessment Comments Mobility Comments If able to get her shoes in , to attempt to try to stand pt and see if she is at her baseline level. M8 OT- IP Objective Assessments Start: 11/13/20 11:26 Freq: Status: Active Protocol: Document 11/18/20 12:40 [facility] (Rec: 11/18/20 12:45 [facility] [id number]) OT Gross Range of Motion Upper Extremity Range of Motion Assessment Bilaterally Impaired ROM Impairments RUE shoulder flexion 0-110, LUE shoulder scaption 0-80 OT Strength Comments Strength Comments Able to give pt theraputty to work on gentle strengthening and stretching for her hands. Pt has good awareness to do what she can but not overdo it jones to her RA. M9 OT- IP Assessment and Plan Start: 11/13/20 11:26 Freq: Status: Active Protocol: Document 11/21/20 12:47 [facility] (Rec: 11/21/20 12:54 [facility] [id number]) OT Summary Assessment and Plan Potential Rehabilitation Potential Good Analytic Complexity at Evaluation Moderate Summary OT Impairments Pain,Range of Motion,Strength, Balance,Functional Mobility, Self-Feeding,Grooming,Dressing ,Toileting,Bathing,Toilet Transfers,Shower Transfers, Activity Tolerance Progress Towards Goals Progressing Toward Goals,Slow Progress due to Medical Issues ,Slow Progress due to Activity Tolerance Assessment Summary Pt given heavier resistence for theraputty as improving with her hand strength. Per case management not sure if pt able to get enough assist/hours to to assist pt for all her needs as pt is dependent for her mobility, hygiene and back would. Therefore suggest skilled rehab versus LTC as this time. Goals Grooming Goal Standby Assistance Days to Meet Goals 4 Frequency of Treatment Frequency Of Treatment Once a Day Treatment Plan OT Treatment Plan ADL Training,Functional Mobility,Patient/Family Education,Discharge Planning Other Treatment Recommendations and Next If pt shoes are present to Treatment Focus attempt to stand pt to see if she is at baseline so caregivers would be able to transfer/lift her from recliner to wc. Discharge Recommendations OT Discharge Recommendations SNF Rehab,LTAC Transportation Needs at Discharge Stretcher/Ambulance
--- NOTE | 2020-11-21 14:29 | DIET.PN ---
Dietary Progress Note Assessment: 75 y/o F tolerating meals, fruit, and Mani well per her report. PO 75%. CM working on safe discharge plan. Possible discrepancy in weight without actual recent weight loss. Confirmed accuracy of wt with clinical staff anesthesiologist. HT: 157.48cm WT: 55kg (down from 11/18 of 59.5kg) BMI: 22.2 Monitoring/Evaluations: POs, weight
--- NOTE | 2020-11-21 14:45 | CM.DPNOTE ---
DCP Note SNF attempts today: [facility] ([facility]) no, [facility] (faxed clinical to their DNS [place]) awaiting Jose Ra[facility]ORTO concerns about the amount of care she will require, [facility] no, not enough staffing, [facility] no. Attempted multiple other [facility] and [facility] SNFs, had to LM Placed call to patient's CHIRAG Ashley Denisse P#[phone], according to our conversation: Patient has been struggling at home since approx June 2020 at which time it became more difficult for patient to participate in transfers. Patient spends most of her day in her recliner, often in soiled briefs, and has had to use her lifeline alert to call the APD/AFD to assist in transfers when she does not have a cg to assist. Encouraged CHIRAG CORDOVA to consider, at minimum, securing a david lift i npatient's apt to assist the caregivers, and an electric w/c w/ off loading capability (?) for patient if she returns home. Hours have been increased once in the last few months. It is the opinion of Gabi that patient requires higher level of assist than what CHIRAG can provide at home; CHIRAG in home care giving is not meant to provide 24/7 assist. It's unknown to this DISH CLOTH INSPECTOR why CHIRAG CORDOVA had not been attempting higher level of care for patient prior to this visit? Gabi plans to discuss this case with her Scrap Metal Processing Worker and will likely need to transfer this case to a [facility] ([facility]) CM, Gabi does not complete the reassessments in the hospital, which is what is required at this time. We discussed patient's current clinical and functional needs; It remains the opinion of this DISH CLOTH INSPECTOR (and medical team) that patient requires SNF level of care before either returning home w/ in home cgs and HH vs alternative assisted care placement ie [facility] vs SNF (metal patternmaker MARLIN) Call from Stephanie at [facility]- they will not accept patient onto service because home is not a safe plan at this time...Patient was receiving the maximum available for services and still this did not meet patient's increasing care needs at home. Will continue efforts to secure SNF bed for patient. Critically low staffing level continues to be the most common stated barrier to SNF acceptance at this time. KERI Sam
[2020-11-21] MEDS: predniSONE 5 MG TABLET 2.5 MG PO (20:11)
[2020-11-21] MEDS: LORazepam 0.5 MG TABLET PO (20:12)
[2020-11-22] VITALS (8 sets, daily range): BP systolic 88–118; BP diastolic 41–70; PULSE 60–70; RESP 16; TEMP 35.8–36.6; O2SAT 95–97
--- NOTE | 2020-11-22 00:47 | PC.NURSE ---
Patient not as sleepy tonight and readily arouses and participates in conversation; is oriented. Breath sounds diminished at bases but CTA with RA sat of 94%. HRR. Denied nausea. BT present and abdomen is soft. Incontinent of B&B. Is being repositioned q2h but can assist with turning. Wound vac intact to left scapular area; set to 125mmHg. States having 3/10 heel pain but declined pain medication; repositioned and heels floated on pillow. Wearing bilateral calf SCD's. Fall risk score is high and bed alarm is activated.
[2020-11-22] MEDS: CIPROFLOXACIN 250 MG TABLET 500 MG PO ×2 (06:32→20:14)
--- NOTE | 2020-11-22 09:34 | P.PN_ITS ---
Subjective Subjective Date Patient Seen: 11/22/20 Time Patient Seen: 09:34 Interval history: Patient feels fine this morning. Has a good appetite and denies any nausea or vomiting. Was talking to a family member this morning that she said was her dad. I talked so long that my food went cold, but I will still eat it. She is 75 years old, I am not sure if father is still alive but I do not think so. Otherwise, nursing reports no major overnight events. Dis charge planning has reported that she no longer is meeting criteria for a SNF transfer and so a long-term care option is being sought. She will need to remain in the hospital untill that happens as she is not approved to go home. Exam Vital Signs (past 8 hours): - 11/22/20 08:46 11/22/20 09:19 11/22/20 09:20 Temperature 97.0 F L Pulse Rate 65 66 65 Respiratory Rate 16 Blood Pressure 88/57 L 95/49 L 103/43 L Pulse Oximetry 97 Oxygen Delivery Method Room Air Oxygen Flow Rate 0 Narrative Exam Narrative: GENERAL: Alert and oriented, appearing stated age and in no acute distress. HEENT: Head normocephalic/atraumatic. LUNGS: Clear to ausculation bilaterally, no wheezes, rhonchi or rales. CV: Normal S1 and S2 with regular rate and rhythm, 3/5 systolic murmur. ABDOMEN: Soft, non-tender, non-distended, no organomegaly. Positive bowel sounds. EXTREMITIES: No clubbing, cyanosis, or edema. NEURO: Cranial nerves II through XII grossly intact. PSYCH: Alert and oriented to person, placed and time, possibly confused about who she is talking to on the phone. Objective Labs Result Diagrams: 11/20/20 05:25 11/20/20 05:25 [facility] Social History household members: none Smoking Status: Never smoker alcohol intake: never Assessment & Plan Assessment & Plan narrative: 1. Sepsis with shock requiring pressors due to Stage IV pressure ulcer, back, resolved 2. Ulceration on back secondary to Stage IV immobility/pressure ulcer -Status post surgical debridement x 2. Plan: Continue with antibiotics. Wound VAC in place, plan for replacement on 11/28/20 in wound care clinic. Will need placement in long-term care facility to assist with movement and transfers, has failed placement at home. 3. Multiple sclerosis -Wheelchair-bound and at this time unable to assist with transfers requiring use of overhead lift in the hospital. Plan: LTC facility upon discharge. 4. Rheumatoid arthritis Plan: Continue home steroids, holding methotrexate. 5. Hypotension, mild, clinically stable Plan: Will watch closely. DVT prophylaxis: SCDs FEN: Regular diet Code: Full COVID: negative Disposition: LTC, no longer able to live at home. Social work is arranging placement, no openings will be available over the weekend. Quality VTE Deep Vein Thrombosis/Pulmonary Embolism Present on Admission: No
[2020-11-22] MEDS: SODIUM CHLORIDE 0.9% FLUSH 10 ML IV ×2 (09:47→20:15)
[2020-11-22] MEDS: ENOXAPARIN 40 MG/0.4 ML SYRINGE SUBCUT (09:47)
[2020-11-22] MEDS: ATORVASTATIN 20 MG TABLET 40 MG PO (09:47)
[2020-11-22] MEDS: DOCUSATE 100 MG CAPSULE PO ×2 (09:47→20:14)
[2020-11-22] MEDS: HYDROXYCHLOROQUINE 200 MG TABLET PO ×2 (09:47→20:13)
[2020-11-22] MEDS: predniSONE 5 MG TABLET PO (09:47)
--- NOTE | 2020-11-22 11:40 | OT.IP.TRT ---
Current Diagnoses Sepsis, unspecified organism (11/09/20) Surgery Performed Operation Date: 11/11/20 12:30 Actual Procedures p I&D back with wound vac - Elizabeth Oro MD Occupational Therapy Treatment Note M2 OT-IP Current Condition Start: 11/13/20 11:26 Freq: Status: Active Protocol: Document 11/13/20 11:26 [facility] (Rec: 11/13/20 11:47 [facility] [id number]) Occupational Therapy Current Condition Current Condition Evaluation Date 11/13/20 Treatment Diagnosis Sepsis, back wound, MS, generalized muscle weakness Diagnosis Onset Date 11/09/20 M3 OT- IP Subjective and Pain Start: 11/13/20 11:26 Freq: Status: Active Protocol: Document 11/22/20 12:13 [facility] (Rec: 11/22/20 12:21 [facility] [id number]) OT- Subjective Occupational Therapy Visit Type Type Treatment Note Visit Start Time 11:30 Visit Stop Time 11:40 Total Visit Minutes 10 Occupational Therapy Visit Comments Patient Comments Pt agreed to work with OT and try foam range master for utensils for eating. Patient/Caregiver Goals TO go home. OT Pain Assessment Pain When Pain Assessed At Rest Pain Present Pain Present Denied Pain M4 OT- IP ADL's Start: 11/13/20 11:26 Freq: Status: Active Protocol: Document 11/22/20 12:13 [facility] (Rec: 11/22/20 12:21 [facility] [id number]) OT [id number] Comments OT Self-Feeding Comments Pt states felt the foam range master would be beneficial to assist to eat at times. OT ADL-Grooming Comments OT Grooming Comments Pt still needing BRANDI for her hair to help put up , but able to raise up her arms better now after doing self BUE exercises with theraputty and theraband. M5 OT- IP IADL's Start: 11/13/20 11:26 Freq: Status: Active Protocol: Document 11/13/20 11:26 [facility] (Rec: 11/13/20 11:47 [facility] [id number]) OT-Instrumental Activities of Daily Living Home Safety Awareness Awareness of Need for Assistance at Home Good Awareness Ability to Problem Solve Emergency Able to Problem Solve Situations Medication Management Medication Management No Deficits Identified Medication Management Comments Pt states take her own medications, mostly supplements which she has a a grooming travel bag. Money Management Money Management No Deficits Identified Money Management Comments Pt states pays her own bills. Meal Preparation Meal Preparation Caregiver Provides Assist Public Records Researcher Public Records Researcher Caregiver Provides Assist M6 OT- IP Functional Cognition Start: 11/13/20 11:26 Freq: Status: Active Protocol: Document 11/21/20 12:47 [facility] (Rec: 11/21/20 12:54 [facility] [id number]) Cognitive Factors Limiting Selfcare Function Cognitive Comments Cognitive Assessment Comments Pt appears at baseline for needs. Pt states not sure if she is able to stand with assist at this time, as prior her caregivers were just standing her up as she would hang onto them for transfers. Pt states does not have her shoes here if which she uses M9 OT- IP Assessment and Plan Start: 11/13/20 11:26 Freq: Status: Active Protocol: Document 11/22/20 12:13 [facility] (Rec: 11/22/20 12:21 [facility] [id number]) OT Summary Assessment and Plan Potential Rehabilitation Potential Fair Analytic Complexity at Evaluation Moderate Summary Assessment Summary Pt able to do all her BUE exercise on her own with good understanding and demonstration. Therefore Discharge pt for OT services at this time. Discharge Recommendations OT Discharge Recommendations SNF Rehab,LTAC
--- NOTE | 2020-11-22 13:45 | CM.DPNOTE ---
DCP Note TC from Brittanie at [facility] P# [phone]. Patient no longer meets criteria to have SNF stay authorized. Auth has now been rescinded for the following reasons: -Wound care does not meet criteria for SNF level of care -Patient no longer requires IV abx -Patient cannot participate in therapies and is felt to be at PLOF Patient/family can appeal this denial by calling P#[phone], must do so within 72 hours. Updated patient and family re: above, patient/dtr do not want to appeal. Discussed [facility] care planning and, at this time, needing to seek alternative placement d/t high level of care needs; patient agreeable to this, dtr admits relief. CM team will continue to follow closely. Anticipated next steps are close contact w/HCS team to secure new assessment to reflect current care needs and likely placement at SNF vs [facility] for assistant professor of anthropology care; unless home environment can be better suited to patient's current needs and in home services can be secured. Home wound vac from [facility] remains in patient's room. AMELIE
[2020-11-22] MEDS: LORazepam 0.5 MG TABLET PO (20:14)
[2020-11-22] MEDS: predniSONE 5 MG TABLET 2.5 MG PO (20:14)
[2020-11-22] MEDS: NYSTATIN POWDER 15GM 1 APPLIC TOP (20:29)
[2020-11-23] VITALS (7 sets, daily range): BP systolic 73–125; BP diastolic 44–71; PULSE 60–79; RESP 14–18; TEMP 35.9–36.4; O2SAT 94–97
[2020-11-23] MEDS: CIPROFLOXACIN 250 MG TABLET 500 MG PO ×2 (06:44→20:26)
--- NOTE | 2020-11-23 08:50 | P.PN_ITS ---
Subjective Subjective Date Patient Seen: 11/23/20 Time Patient Seen: 08:51 Interval history: Uneventful night. This morning patient denies pain. Appetite is good, no nausea or vomiting. Continues to enjoy chatting with her relatives on the phone. Awaiting transfer to LTC. Exam Vital Signs (past 8 hours): - 11/23/20 04:00 Temperature 96.7 F L Pulse Rate 60 Respiratory Rate 14 Blood Pressure 123/44 L Pulse Oximetry 97 Oxygen Delivery Method Room Air Oxygen Flow Rate 0 Narrative Exam Narrative: GENERAL: Alert and oriented, appearing stated age and in no acute distress. HEENT: Head normocephalic/atraumatic. LUNGS: Clear to ausculation bilaterally, no wheezes, rhonchi or rales. CV: Normal S1 and S2 with regular rate and rhythm, 3/5 systolic murmur. ABDOMEN: Soft, non-tender, non-distended, no organomegaly. Positive bowel sounds. EXTREMITIES: No clubbing, cyanosis, or edema. NEURO: Cranial nerves II through XII grossly intact. PSYCH: Alert and oriented to person, placed and time, possibly confused about who she is talking to on the phone. SKIN: Wound vac in place over kyphotic hump, mild surrounding erythema. Objective Labs Result Diagrams: 11/20/20 05:25 11/20/20 05:25 [facility] Social History household members: none Smoking Status: Never smoker alcohol intake: never Assessment & Plan Assessment & Plan narrative: 1. Sepsis with shock requiring pressors due to Stage IV pressure ulcer, back, resolved 2. Ulceration on back secondary to Stage IV immobility/pressure ulcer, afebrile -Status post surgical debridement x 2. Plan: Continue with antibiotics. Wound VAC in place, plan for replacement on 11/28/20 in wound care clinic. Will need placement in long-term care facility to assist with movement and transfers, has failed placement at home. 3. Multiple sclerosis -Wheelchair-bound and at this time unable to assist with transfers requiring use of overhead lift in the hospital. Plan: LTC facility upon discharge. 4. Rheumatoid arthritis Plan: Continue home steroids, holding methotrexate. 5. Hypotension, mild, clinically stable and slightly improved in the last 24 hours Plan: Will watch closely. DVT prophylaxis: SCDs FEN: Regular diet Code: Full COVID: negative Disposition: LTC, no longer able to live at home. Social work is arranging placement, no openings will be available over the weekend, awaiting transfer next week. Quality VTE Deep Vein Thrombosis/Pulmonary Embolism Present on Admission: No
[2020-11-23] MEDS: ATORVASTATIN 20 MG TABLET 40 MG PO (09:45)
[2020-11-23] MEDS: ENOXAPARIN 40 MG/0.4 ML SYRINGE SUBCUT (09:46)
[2020-11-23] MEDS: SODIUM CHLORIDE 0.9% FLUSH 10 ML IV ×2 (09:46→20:27)
[2020-11-23] MEDS: predniSONE 5 MG TABLET PO (09:46)
[2020-11-23] MEDS: DOCUSATE 100 MG CAPSULE PO ×2 (09:46→20:24)
[2020-11-23] MEDS: HYDROXYCHLOROQUINE 200 MG TABLET PO ×2 (09:47→20:23)
--- NOTE | 2020-11-23 16:32 | CM.DPC ---
DCP Cont: Per MD, next wound vac change scheduled for 11/28/20 and currently set for [facility]? No clear timeline for length of wound vac need and RN unsure as well. SW missed MD rounding for the weekend and Surgeon signed off on 11/18/20 and wound vac changes are manageable bedside now with nursing staff. PT has not been working with pt due to her status of being mostly w/c bound but OT was working with pt on ADL's and care and just signed off as well with pt as they feel she is back to baseline. OT not working today (Sun) to get a better understanding of pt's specific needs and abilities especially with w/c tolerance and wound vac. [facility] wound vac is currently in pt's room awaiting and available for when pt discharges as looks like SNF may not be an option at least under her [facility] coverage but would have to be Medicaid as [place] denied SNF auth at this time due to lack of acquity of wound care needs and not Skillable for PT/OT. SW left CHIRAG Ashley [phone] a requesting call straight away tomorrow (Tue) morning for ongoing discussion regarding d/c planning. How quickly could david be put in place at home? CG training to reduce pt's risk of pressure ulcers/wounds? And if this could not be set up then has HCS been given pt's information for expedited hospital assessment for increased care or facility> SW met bedside with pt and her Dtr Emery Holt and explained role and continued discussion from yesterday with ELAINE Montes. Pt confirms she would be agreeable with SNF or [facility] for ongoing wound care but is not wanting LTC placement. She wants to eventually get back to her apartment with CHIRAG WASSERMAN and her friends. Pt states her CHIRAG WASSERMAN and she would be agreeable with CG training on pt's wound care and recommendations to reduce wounds in the future. SW discussed need to talk to CHIRAG CORDOVA and [facility] towards determining if plan for home with CG and outpt wound care could be set up if the ideal of SNF/DETENTION could not be found at this time. Pt and Dtr acknowledge understanding and agreeable. Plan: SW to follow tomorrow (Mon) with ongoing coordination between CHIRAG, [facility], , OT towards determining safe d/c plan. KERI Louis
[2020-11-23] MEDS: predniSONE 5 MG TABLET 2.5 MG PO (20:23)
[2020-11-23] MEDS: LORazepam 0.5 MG TABLET PO (20:23)
[2020-11-23] MEDS: NYSTATIN POWDER 15GM 1 APPLIC TOP (20:29)
[2020-11-24] MEDS: ACETAMINOPHEN 325 MG TABLET 650 MG PO (01:14)
[2020-11-24 01:25] VITALS: BP 136/56; PULSE 61; RESP 14; TEMP 36.5; O2SAT 96
[2020-11-24 03:30] VITALS: BP 136/59; PULSE 61; RESP 14; TEMP 36.5; O2SAT 96
[2020-11-24] MEDS: CIPROFLOXACIN 250 MG TABLET 500 MG PO ×2 (07:00→21:34)
--- NOTE | 2020-11-24 08:11 | PC.NURSE ---
Patient resting in bed, A/O x 3. Lungs clear, 97% on RA. VSS. Patient denies pain. Wound vac suction to 125mmHg, dsg on L upper back intact. Patient repositioned, SCD's on. Patient denies dizziness, lightheadedness, chest pain or shortness of breath. BS active x 4, abd soft, non tender. Patient remains afebrile. Call light in reach.
[2020-11-24] MEDS: DOCUSATE 100 MG CAPSULE PO ×2 (08:28→21:33)
[2020-11-24] MEDS: ATORVASTATIN 20 MG TABLET 40 MG PO (08:28)
[2020-11-24] MEDS: ENOXAPARIN 40 MG/0.4 ML SYRINGE SUBCUT (08:28)
[2020-11-24] MEDS: HYDROXYCHLOROQUINE 200 MG TABLET PO ×2 (08:30→21:34)
[2020-11-24] MEDS: SODIUM CHLORIDE 0.9% FLUSH 10 ML IV ×2 (08:30→21:33)
[2020-11-24] MEDS: predniSONE 5 MG TABLET PO (08:30)
[2020-11-24 09:00] VITALS: BP 130/79; PULSE 61; RESP 18; TEMP 36.3; O2SAT 97
--- NOTE | 2020-11-24 09:10 | P.PN_ITS ---
Subjective Subjective Date Patient Seen: 11/24/20 Time Patient Seen: 07:50 Interval history: The pt reports feeling well this morning. She has no specific concerns. She is looking forward to moving to a new facility. She denies any pain. She is having daily, small BMs. Exam Vital Signs (past 8 hours): - 11/24/20 01:25 11/24/20 03:30 Temperature 97.7 F 97.7 F Pulse Rate 61 61 Respiratory Rate 14 14 Blood Pressure 136/56 L 136/59 L Pulse Oximetry 96 96 Oxygen Delivery Method Room Air Oxygen Flow Rate 0 Narrative Exam Narrative: GENERAL: Alert and oriented, NAD HEENT: Head normocephalic/atraumatic. LUNGS: Clear to ausculation bilaterally, no wheezes, rhonchi or rales. CV: Normal S1 and S2 with regular rate and rhythm, 3/5 systolic murmur. ABDOMEN: Soft, non-tender, non-distended, no organomegaly. Positive bowel sounds. EXTREMITIES: No clubbing, cyanosis, or edema. NEURO: No gross deficits SKIN: Wound vac in place over kyphotic hump, mild surrounding erythema. Objective Labs Result Diagrams: 11/20/20 05:25 11/20/20 05:25 [facility] Social History household members: none Smoking Status: Never smoker alcohol intake: never Assessment & Plan Assessment & Plan narrative: Pt is a 75yo woman with MS, RA, chronically wheelchair bound and severely kyphotic who presented having failed outpatient therapy for back ulceration. Pt with septic shock on arrival with hypotension not responsive to fluids, needing pressure support with levophed. No other end- organ damage. Source appeared to be back ulceration. Now stable for discharge. 1. Sepsis with shock requiring pressors due to Stage IV pressure ulcer, back, resolved 2. Ulceration on back secondary to Stage IV immobility/pressure ulcer, afebrile -Status post surgical debridement x 2. Plan: Continue with antibiotics, possibly d/c tomorrow. Wound VAC in place, plan for replacement on 11/28/20 in wound care clinic. Will need placement in long-term care facility to assist with movement and transfers, has failed placement at home. 3. Multiple sclerosis -Wheelchair-bound and at this time unable to assist with transfers requiring use of overhead lift in the hospital. Plan: LTC facility upon discharge. 4. Rheumatoid arthritis Plan: Continue home steroids, holding methotrexate. Should be able to restart at discharge. 5. Hypotension, mild, clinically stable and improved in the last 24 hours Plan: Will watch closely. DVT prophylaxis: SCDs FEN: Regular diet Code: Full COVID: negative Disposition: LTC, no longer able to live at home. PT consulted again to help with placement options. Do not believe the pt is safe for discharge to home. Social work aware, and working on placement. Discussed concerns with SNF regarding wound care needs, and discussed that needs are very minimal. Quality VTE Deep Vein Thrombosis/Pulmonary Embolism Present on Admission: No
[2020-11-24 13:00] VITALS: BP 108/55; PULSE 78; RESP 14; TEMP 36.4; O2SAT 98
--- NOTE | 2020-11-24 15:15 | CM.DPC ---
DCP Cont: Per MD, pt with now just once a week wound vac changes and timeframe for wound vac dependent on pt's healing and progress. SW updated MD on barriers to SNF and placement and discussed possible d/c home and MD does not feel pt has safe plan for home and discussed attempting SNF under Medicaid for now. SW contacted following SNF's for Medicaid rehab with SNF incentive program through Medicaid as pt is currently not agreeable to LTC but short stay rehab: [place]: left msg [facility]: no beds [facility]: no beds [facility]: no [facility]: left msg [facility]: no beds [place] [facility]: have referral, willing to review to determine if cost with incentive money is manageable [facility]: no wound vacs [facility]: no medicaid beds [facility]: no medicaid beds [facility]: left msg [facility]: COVID outbreak, not accepting new admissions [facility]: full [facility]: no [facility]: no [facility]: left msg [facility]: left msg [facility]: left msg [facility]: no SW called pt's CHIRAG CM Gabi [phone] and she confirms pt transferred to [facility] and that since pt is in the hospital then [facility] would do reassessment for current needs towards placement or increased CHIRAG hours. Gabi did confirm that fastest way to get a david would be going through MD or HH and insurance and if not covered then CHIRAG CM can work on getting david but states a much longer process then through HH or MD. Gabi referred SW to call [facility] Deputy Harbormaster Sandra Paul [phone] and ELAINE discussed situation with Sandra and was referred to [facility] Deputy Harbormaster as pt not showing as assigned to [facility] SW yet. ELAINE called [facility] Deputy Harbormaster Madelyn Yates [phone] and left msg and emailed her coworker Dino Olmedo ([phone]) who confirms pt would qualify for One Time SNF incentive program for $6000 dollars at SNF through the hospital escalation contacts but unfortunately no SNF currently found to accept. ELAINE received a call at end of day from Fifi with [facility] ([phone]) and is the assigned [facility] special technical operations officer for pt and discussed pt's status and needs. Fifi states that she will complete assessment but has to be via phone and will call back with a time for likely tomorrow as late afternoon already. ELAINE called [facility] to inquire if they could reconsider pt for their [facility] program and Roseline (covering for Stephanie) can only see that their request for their [place] program was declined. But confirmed HH CAN do once a week wound vac changes but they like to have wound clinic following. ELAINE called [facility] and left msg regarding referral for at least HH RN/OT/ENVIRONMENTAL FIELD SERVICES TECHNICIAN/INDUSTRIAL MAINTENANCE INSTRUCTOR and faxed clinicals. But F2F would be needed if pt goes home. ELAINE talked to PT who will attempt transfers with pt this afternoon once Dtr brings in pt's shoes to determine if david still needed or not and will attempt to see if pt can tolerate sitting in w/c with wound vac in place. ELAINE called Lata at [place] (Brittanie off work today) and left msg inquiring the process for approving david in the home if needed. Pt has been agreeable to her CHIRAG CG coming into the hospital for maybe CG training with both PT for transfers and RN for wound care. [facility] has been alerted to pt and will need to be updated if plan can be set up for home. KERI Louis
[2020-11-24 15:20] VITALS: BP 101/69; PULSE 76; RESP 14; TEMP 36.9; O2SAT 95
--- NOTE | 2020-11-24 16:40 | PT.IIE ---
Current Diagnoses Sepsis, unspecified organism (11/09/20) Surgery Performed Operation Date: 11/11/20 12:30 Actual Procedures p I&D back with wound vac - Elizabeth Oro MD Physical Therapy Inpatient Evaluation/Re-Eval M1 PT/OT-IP Prior Functional Status Start: 11/12/20 12:33 Freq: NEEDED Status: Active Protocol: Document 11/24/20 16:40 AW (Rec: 11/24/20 16:55 AW [id number]) Medical Review Prior Functional Status Medical History Reviewed Yes Communication Able to make needs known. Alert and oriented. Mobility and Gait Per prior PT notes confirmed at this encounter: Pt stated that she is non-ambulatory and unable to stand. Stated that she spends most of the day on her recliner and sleeps on her recliner. She has a caregiver that comes in - and assists her to use the toilet. Pt stated that her caregiver assists with total assist transfers and she holds on the her caregiver's neck. Pt stated that she sits on her recliner until her next caregiver gets her ready for the night from 5-7. Pt stated that she is incontinent and her caregiver assists her with hygiene care. Stated that she has not taken a shower for a long time since she cannot get into the shower and she only takes sponge baths. Activities of Daily Living and IADL's Pt states she is able to do her grooming needs except for her hair after caregiver gets her to the sink in the w/c. Pt states gets dressed from her WC with assist from caregivers . Pt states has been more difficulty to use her arms due to weakness and decreased AROM and needing more assist from the caregivers. Prior Functional Level (Other details) Pt states she was able to transfer with less assist one year ago. Social History Household Members none Living Arrangements Apartment/Condo Number of Stairs To Enter/Railing? Pt lives on a 3rd floor apartment with an elevator to get to her floor Home Environment Standard Height Toilet,Tub/ Shower,Elevator Home Equipment Manual Wheelchair,Bedside Commode,Grab Bars Near Toilet M2 PT-IP Current Condition Start: 11/12/20 12:33 Freq: NEEDED Status: Active Protocol: Document 11/24/20 16:40 AW (Rec: 11/24/20 16:55 AW [id number]) Physical Therapy Current Condition Current Condition Evaluation Date 11/24/20 Treatment Diagnosis sepsis; stage 4 PI on back; MS ; generalized weakness; impaired mobility Onset Date 11/09/20 Precautions Other Precautions wound vac mid thoracic M3 PT-IP Subjective Start: 11/12/20 12:33 Freq: NEEDED Status: Active Protocol: Document 11/24/20 16:40 AW (Rec: 11/24/20 16:55 AW [id number]) Subjective Physical Therapy Visit Type Type Initial Evaluation Visit Start Time 16:02 Visit Stop Time 16:40 Total Visit Minutes 38 Notes PT was consulted a second time in hopes of determining level of need and assist with discharge planning. Specific questions: Can pt transfer? Can pt tolerate sitting up in w/c with wound vac in place Number of RISK CONSULTANT Visits 0 Physical Therapy Visit Comments Patient Comments Pt is nervous about attempting transfer but willing to try. Patient Goals Pt would like to reduce burden on her caregivers. Therapy Pain Assessment Pain When Pain Assessed At Rest Pain Present Pain Present Denied Pain M4 PT-IP Mobility and Gait Start: 11/12/20 12:33 Freq: NEEDED Status: Active Protocol: Document 11/24/20 16:40 AW (Rec: 11/24/20 17:02 AW [id number]) PT-Bed Mobility Assessment Rolling Type of Rolling Bilateral Level of Assist Maximal Assistance,1 Person Assistance,2 Person Assistance Supine to Sit Supine to Sit Total Assistance,2 Person Assistance,Head of Bed Elevated,Bedrails Scooting Scooting to Edge of Bed Maximum Assistance PT-Transfer Assessment Sit to and From Stand Sit to and from Stand Total Assistance,1 Person Assistance Equipment Transfer Assistive Device Gait Belt Orthotic/Prosthetic Devices or Brace: No Transfers Transfer Destination Chair Transfer Technique Stand Pivot Transfer Ability Level of Assist Total Assistance,1 Person Assistance Comments Mobility Comments Pt was lying in bed as PT arrived. She agreed to attempt transfer but requested her shoes be donned first. She stated she needs to be able to see her feet during transfer. She rolled side to side using bed tilt feature and assist from PT and DESKTOP SUPPORT SPECIALIST for pericare and briefs change. With HOB elevated, she then required total assist to complete supine to sit. Pt unable to maintain seated balance without constant assist due to severe scoliosis and extreme thoracic hyperkyphosis. Pt laid across the bed in order for PT to don the gait belt. PT assisted pt to sitting and provided max assist to scoot toward EOB. Pt laid again as PT donned shoes. In sitting, pt placed her arms around PT's neck as PT provided total assist to stand and pivot to chair set up on pt's right side. DESKTOP SUPPORT SPECIALIST arrived to assist. PT provided total assist for pt to stand as DESKTOP SUPPORT SPECIALIST placed david sling on chair. Then positioned pt on chair with extra pillows on left side and behind head to support her posture. Pt was left with call light and tray table in reach . Gait Assessment Comments Gait Comments Unable. Pt is non ambulatory at baseline. PT-Balance Assessment Sitting Balance and Reactions Static Sitting Balance Ability Poor Dynamic Sitting Balance Ability Poor Standing Balance and Reactions Static Standing Balance Ability Poor Dynamic Standing Balance Ability Poor Device Used gait belt M5 PT-IP Objective Assessments Start: 11/12/20 12:33 Freq: NEEDED Status: Active Protocol: Document 11/24/20 16:40 AW (Rec: 11/24/20 17:49 AW [id number]) Orientation Orientation/Cognition Level of Alertness Alert Orientation Name,Month,Place,Situation Language Function Ability No Deficits Noted Safety Awareness Understands Safety Issues Comments Pt is pleasant and conversive. She has good insight into her condition. Gross Range of Motion Lower Extremity ROM Assessment Bilaterally Impaired Impairments LLE rigidity B ankle PF/eversion contracture Strength Lower Extremity Strength Assessment Bilaterally Impaired Comments Strength Comments RLE: 3-/5 LLE: 2-/5 Muscle Tone Muscle Tone WNL No Comments Muscle Tone Comments LLE rigidity M6 PT-IP Treatment Start: 11/12/20 12:33 Freq: NEEDED Status: Active Protocol: Document 11/24/20 16:40 AW (Rec: 11/24/20 17:49 AW [id number]) Physical Therapy Treatment Education Education Provided Safety M7 PT-IP Assessment and Plan Start: 11/12/20 12:33 Freq: NEEDED Status: Active Protocol: Document 11/24/20 16:40 AW (Rec: 11/24/20 17:49 AW [id number]) PT Summary Assessment and Plan Potential Rehabilitation Potential Poor Status of Condition at Evaluation Stable Summary Impairments ROM,Strength,Balance,Tone,Bed Mobility,Transfers,Gait Assessment Summary PT was consulted again to gain further insight into pt's mobility needs and to assist toward discharge planning. Pt has been non-ambulatory for over a year and is dependent for transfers. She has MS, severe scoliosis, thoracic hyperkyphosis, and poor trunk control in unsupported sitting . She now has a stage 4 pressure injury on her left posterolateral thorax. She lives alone but has AM and PM caregivers who assist with dressing and toileting needs and provide total assist for transfers. She spends most of her day and night in a recliner at home. On evaluation, pt was dependent for transfer and was able to tolerate supported sitting in bedside chair for at least 15 minutes. It is uncertain how long she could tolerate sitting but wound vac did not appear to complicate this. Pt will require SNF rehab and/or LTC placement. If she returns home, PT recommends increased caregiver support and pt will need david lift for her own and for her caregivers' safety . PT also recommends more aggressive positioning plan in order to prevent further PI or complications. No acute PT needs are identified at this time. Frequency of Treatment Frequency Of Treatment Discharge Recommendations To Nursing Amount of Assist Needed Total Assistance Discharge Recommendations PT Discharge Recommendations SNF Rehab Other Discharge Recommendations LTC placement. Equipment Needed for Home Before If dc home, PT recommends 25/10 Discharge caregiver support and david lift. Transportation Needs at Discharge Stretcher/Ambulance
[2020-11-24 21:05] VITALS: BP 114/64; PULSE 69; RESP 15; TEMP 37; O2SAT 96
[2020-11-24] MEDS: predniSONE 5 MG TABLET 2.5 MG PO (21:32)
[2020-11-24] MEDS: LORazepam 0.5 MG TABLET PO (21:34)
[2020-11-25] VITALS (7 sets, daily range): BP systolic 86–131; BP diastolic 49–66; PULSE 60–73; RESP 16–17; TEMP 36.1–36.5; O2SAT 94–98
[2020-11-25] MEDS: CIPROFLOXACIN 250 MG TABLET 500 MG PO (06:04)
[2020-11-25] MEDS: ATORVASTATIN 20 MG TABLET 40 MG PO (09:32)
[2020-11-25] MEDS: ENOXAPARIN 40 MG/0.4 ML SYRINGE SUBCUT (09:32)
[2020-11-25] MEDS: DOCUSATE 100 MG CAPSULE PO ×2 (09:32→20:24)
[2020-11-25] MEDS: predniSONE 5 MG TABLET PO (09:32)
[2020-11-25] MEDS: SODIUM CHLORIDE 0.9% FLUSH 10 ML IV ×2 (09:33→20:26)
[2020-11-25] MEDS: HYDROXYCHLOROQUINE 200 MG TABLET PO ×2 (09:33→20:25)
--- NOTE | 2020-11-25 15:37 | P.PN_ITS ---
Subjective Subjective Date Patient Seen: 11/25/20 Time Patient Seen: 08:00 Interval history: The pt has no specific concerns today. She was worried because she was contacted by home health saying their services had been suspended. The pt denies any pain, chest pain, or SOB. She is feeling at her baseline. Exam Vital Signs (past 8 hours): - 11/25/20 12:00 Temperature 97.7 F Pulse Rate 68 Respiratory Rate 16 Blood Pressure 86/49 L Pulse Oximetry 96 Oxygen Delivery Method Room Air Oxygen Flow Rate 0 Narrative Exam Narrative: GENERAL: Alert and oriented, NAD HEENT: Head normocephalic/atraumatic. LUNGS: Clear to ausculation bilaterally, no wheezes, rhonchi or rales. CV: Normal S1 and S2 with regular rate and rhythm, 3/5 systolic murmur. ABDOMEN: Soft, non-tender, non-distended, no organomegaly. Positive bowel sounds. EXTREMITIES: No clubbing, cyanosis, or edema. NEURO: No gross deficits SKIN: Wound vac in place over kyphotic hump, mild surrounding erythema. Objective Labs Result Diagrams: 11/20/20 05:25 11/20/20 05:25 [facility] Social History household members: none Smoking Status: Never smoker alcohol intake: never Assessment & Plan Assessment & Plan narrative: Pt is a 75yo woman with MS, RA, chronically wheelchair bound and severely kyphotic who presented having failed outpatient therapy for back ulceration. Pt with septic shock on arrival with hypotension not responsive to fluids, needing pressure support with levophed. No other end- organ damage. Source appeared to be back ulceration. Now stable for discharge. 1. Sepsis with shock requiring pressors due to Stage IV pressure ulcer, back, resolved 2. Ulceration on back secondary to Stage IV immobility/pressure ulcer, afebrile -Status post surgical debridement x 2. Plan: D/C antibiotics today. Completed 14+ days now. Wound VAC in place, plan for replacement on 11/28/20 in wound care clinic. 3. Multiple sclerosis -Wheelchair-bound and at this time unable to assist with transfers requiring use of overhead lift in the hospital. Plan: LTC facility upon discharge. 4. Rheumatoid arthritis Plan: Continue home steroids, holding methotrexate. Should be able to restart at discharge. 5. Hypotension, mild, clinically stable and improved in the last 24 hours Plan: Will watch closely. DVT prophylaxis: SCDs FEN: Regular diet Code: Full COVID: negative Disposition: Social work actively working on discharge planning. 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 No SNFs are currently available for placement, and pt has been stable for d/c for quite some time now. Remain quite concerned about discharge home with home health, however due to hospital resources especially in light of COVID, and no other dispo options at this time, will likely be the only option. Care management to continue planning for safest possible d/c option. Quality VTE Deep Vein Thrombosis/Pulmonary Embolism Present on Admission: No
--- NOTE | 2020-11-25 17:33 | CM.DPC ---
DCP/continued: GRATED CHEESE MAKER reviewed EMR. Current d/c plan is for potential SNF vs. skilled nursing placement? GRATED CHEESE MAKER discussed with Dr. Negron re: plan. Due to lack of local bed availability, insurance denial, and patent's request to return home with caregivers it has been agreed on by team that patient go home with home health, outpatient [facility] Tuesday at 1:00pm with check in at 12:30pm (CM team will need to arrange transport to appointment via BLS if necessary prior to d/c. GRATED CHEESE MAKER met with patient at bedside today. Patient reports that she wants to go home patient alert and oriented x4 and has no desire to be placed for skilled nursing care nor does she want to go to SNF. Patient reports that her shoulder is a bit sore but otherwise she feels that she is at her mobility baseline. CM team reviewed therapy notes that confirm that patient near or at baseline. Patient usually in w/c able to transfer. Currently patient does require some assistance with transfers but she is hoping that will improve once wound vac removed. GRATED CHEESE MAKER placed call to [facility] worker Gabi cell# [phone] left vm on cell phone and office phone. GRATED CHEESE MAKER requesting immediate reinstatement of caregiving hours with [facility]. Spoke with Danay at [facility] and she confirms that she can add hours for remainder of this month that have not been used (totaling 98hrs) thru 12-02-20 which is over 40hrs per week. Danay will need to hear from [facility] that hours reinstated she can be reached at [phone]. Caregiving can resume within the next 24hrs if needed. Also requested from [facility] with [facility] that the following occur as outpatient 1)evaluation for lift system for patient in residence and 2)Significant Change Assessment (which was supposed to occur in November but was cancelled due to patient's hospitalization. Lastly, spoke with Madelyn Yates with [facility] placement agency informing her that SNF currently not requested by patient. Madelyn has to release case back to [facility] for any home services to resume, which she says she has done. ART/Katharine placed call to [facility] to check on availability. Per return phone call from [facility] they can see patient in the residence on Tuesday12-01-20. HH ordered for RN/PT/OT/JOURNEYMAN LINEMAN/GRATED CHEESE MAKER. Patient has already has outpatient wound care appointment on 11-28 that should not be missed. Patient in agreement and very appreciative of plan and update. Beckie from wound care center brought her intake paperwork and patient has no reservation or hesitation about plan. Patient alert and oriented x4. P: Home within the next 24hrs with HH through [facility], confirmation with state that caregivers reinstated, contact with Danay at [facility] with caregiver resume date/time and transport arranged to outpatient wound care appointment on 11-28. KERI Hein
[2020-11-25] MEDS: predniSONE 5 MG TABLET 2.5 MG PO (20:24)
[2020-11-25] MEDS: LORazepam 0.5 MG TABLET PO (20:24)
[2020-11-26 05:41] VITALS: BP 127/56; PULSE 57; RESP 16; TEMP 36.1; O2SAT 96
[2020-11-26 07:30] VITALS: BP 97/51; PULSE 59; RESP 16; TEMP 36.8; O2SAT 98
--- NOTE | 2020-11-26 08:24 | CM.DPNOTE ---
Called [facility] and spoke to Carry Jeaneth at 8:12 am at [facility]'s request to schedule BLS to pt. home. They will be here at 1400. ART Martinezt.
--- NOTE | 2020-11-26 08:33 | PM.DS.1 ---
History of Present Illness History of Present Illness Date Patient Seen: 11/26/20 Time Patient Seen: 07:45 Chief complaint: fever Narrative: Patient is 75-year-old female with longstanding multiple sclerosis as her primary diagnosis who presents with fever. Apparently she was over the last month developing a lesion on her back. Current when she can feel it because of her MS. She had been having increasing issues with it and was brought in on the 2nd to the emergency room. At that time she was seen was felt to be a significant wound and high risk for infection but patient refused to be admitted and she was sent out with outpatient [facility] wound clinic consultation. Apparently she is overall feels like she has been feeling pretty well up until recently. Apparently she was brought in today because of she had a fever. It is unclear how long this has been going on. Patient herself feels overall good. Has no real complaints. She has no cough. Runny nose. Abdominal pain. She had her bowel movements per in urinary changes. 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 She does not have help until noon on weekends and has been not eating well. States she has only had grapes. She has been trying to take her antibiotics which is clindamycin. She has had no change in urine output. No change in bowel movements. Sometimes she does not feel and so is hard for her to now. Shows no nausea or vomiting she feels like she might be a little fatigued and certainly the emergency room physician feels as if she is at risk. She has chronic urinary incontinence but has no pain. She has been taking her methotrexate daily. She also has a diagnosis of rheumatoid arthritis. Emergency room physician feels as if the wound is somewhat worse. She has no other changes. Patient was presented with a fever and a pressure in the 50s. She was given fluid resuscitation and was unable to continue to have her usual lower blood pressure and Levophed was started. Discharge Providers Provider Date of admission: 11/09/20 20:17 Discharge Date: 11/26/20 Primary care physician: Radha Negron MD Consults: 11/10/20 11:31 Consult to General Surgery Routine Comment: Consulting Provider: Elizabeth Oro Reason for consultation: ulceration Has provider been notified: Yes 11/10/20 21:06 Consult to Wound Care Routine Comment: Consulting Provider: [facility] 11/11/20 13:43 Consult to Respiratory Therapy Evaluate & Treat Comment: Physician Instructions: Evaluate and treat 11/12/20 08:45 Consult to Occupational Therapy Evaluate & Treat Comment: Physician Instructions: Evaluate and treat Consult to Physical Therapy Evaluate & Treat Comment: Physician Instructions: Evaluate and Treat 11/24/20 09:09 Consult to Physical Therapy Evaluate & Treat Comment: Physician Instructions: Evaluate and Treat 11/24/20 09:11 Consult to Physical Therapy Evaluate & Treat Comment: as requested by care management for placement Physician Instructions: Evaluate and Treat Discharge provider: Radha Negron MD Summary Hospital Course Discharge Diagnosis: Septic shock Stage IV back pressure ulcer with proteus and staph infection Multiple sclerosis Rheumatoid arthritis Hospital Course: The patient presented in septic shock shock with hypotension that was not initially responsive to IV fluids. She was started on Levophed for pressure support. The infectious source was thought to be a large pressure ulcer on the patient's back. She was started on vancomycin and Zosyn for broad-spectrum coverage. Her Levophed was gradually titrated off as her blood pressure stabilized. The ulcer was debrided with surgery on 11/11 and found to be stage IV with extensive involvement and up to 10 cm diameter. Ultimately a wound VAC was placed. On hospital day five her antibiotics were changed to IV ciprofloxacin based on blood and wound cultures growing Proteus and Staph epidermidis. The erythema surrounding ulceration continued to improve. The patient was transitioned to p.o. antibiotics after her 2nd blood culture returned negative. She was continued on p.o. ciprofloxacin for a total of more than 14 days on antibiotics. Her wound VAC was changed on 11/14, and healing was noted to have occurred. The patient continued to improve. At the time of discharge, she was at her baseline functional status, which is quite poor. Discharge planning was clear challenging for the patient. Physical therapy, occupational therapy, and physicians all recommended that she discharge to a half-way facility for ongoing care. The patient declined discharge to long-term care facility, however, which is what she ultimately would benefit the most from. Due to the patient being at her baseline status, [facility] ultimately withdrew authorization for discharge to a half-way facility. Due to hospital facility needs, COVID, and lack of patient support for alternative arrangements, the patient was ultimately discharged home with home health and caregivers to provide for her at home. She will have at least 5 hours a day of caregiving in addition to home health. She is very high risk for readmission, and this provider was not in complete agreement with this discharge plan, however after discussion with administration and the patient, it was felt to be the only viable option. The patient understands that she is high risk for decompensation, worsening wounds, fall resulting in severe disability and even . The patient completed her entire course of antibiotics in the hospital. She will discharge home on her normal oral medications. She has a follow-up appointment scheduled with wound care on November 28. Status at Discharge Cognitive/behavioral status at discharge: oriented Functional status at discharge: wheelchair bound Overall status at discharge: patient is back to baseline Exam Vital Signs (past 8 hours): - 11/26/20 05:41 Temperature 97.0 F L Pulse Rate 57 L Respiratory Rate 16 Blood Pressure 127/56 L Pulse Oximetry 96 Oxygen Delivery Method Room Air Oxygen Flow Rate 0 Narrative Exam Narrative: GENERAL: Alert and oriented, NAD HEENT: Head normocephalic/atraumatic. LUNGS: Clear to ausculation bilaterally, no wheezes, rhonchi or rales. CV: Normal S1 and S2 with regular rate and rhythm, 3/5 systolic murmur. ABDOMEN: Soft, non-tender, non-distended, no organomegaly. Positive bowel sounds. EXTREMITIES: No clubbing, cyanosis, or edema. NEURO: No gross deficits SKIN: Wound vac in place over kyphotic hump, mild surrounding erythema. Objective Labs Result Diagrams: 11/20/20 05:25 11/20/20 05:25 [facility] Social History household members: none Smoking Status: Never smoker alcohol intake: never Discharge Plan Discharge Plan Patient Disposition: Home Health Service Nursing Discharge Comment: Wound care appointment is Tuesday 11/28 at 1:15pm. Please bring yellow folder with you with your paper work. Bring your blue bag with your dressing supplies in it to your appointment. You have a portable wound vac. Please keep the unit plugged in when your at home and not doing anything. It does have a 12 hour battery when fully charged. If you have any problems with the unit call the phone number on the device. I have also copied a link to the patient user guide. Call the company if you have any concerns. [email or web address] Discharge orders & Medications Prescriptions: Continued mupirocin 2 % ointment 1 applictn TOP BID Qty: 30 RF: 0 lorazepam [Ativan] 0.5 MG tablet 0.5 mg PO HS Qty: 90 RF: 0 folic acid 1 MG tablet 1 mg PO DAILY Qty: 0 RF: 0 multivitamin [Multiple Vitamins] 1 EACH tablet 1 tab PO DAILY Qty: 0 RF: 0 ascorbic acid (vitamin C) 500 MG tablet 500 mg PO DAILY Qty: 0 RF: 0 alendronate [Fosamax] 70 mg tablet 70 mg PO QWEEK Qty: 4 RF: 3 (DME) incontinence supplies Qty: 150 RF: 0 (DME) wheelchair device See Dose Instructions .ROUTE .MEDSUPPLY Qty: 1 RF: 0 methotrexate sodium 2.5 mg tablet 12.5 mg PO .COMPLEX Qty: 90 RF: 3 hydroxychloroquine [Plaquenil] 200 mg tablet 200 mg PO BID Qty: 60 RF: 3 atorvastatin 40 mg tablet 40 mg PO DAILY Qty: 90 RF: 1 prednisone 2.5 mg tablet See Rx Instructions .ROUTE .COMPLEX Qty: 90 RF: 5 potassium chloride 10 mEq capsule, extended release See Rx Instructions .ROUTE .COMPLEX Qty: 60 RF: 1 Discontinued clindamycin HCl 300 mg capsule 300 mg PO QID Qty: 40 RF: 0 Follow up/Referrals: Radha Negron MD [Primary Care Provider] - 12/15/20 12:00 pm (appt:12/15 @ 1200 w/dr negron please arrive 15 minutes prior to your scheduled appointment time ) Diet/Activity/Treatments Diet: Diet as Tolerated Visit Report/Discharge Packet Instructions: DI for Sepsis -- Adult, DI for Incision and Drainage, [facility]: Wound Care Visit Report Forms: Patient Portal/API, Stroke Signs & Symptoms Discharge Data Primary Care Provider: Radha Negron Quality VTE Deep Vein Thrombosis/Pulmonary Embolism Present on Admission: No
[2020-11-26] MEDS: ENOXAPARIN 40 MG/0.4 ML SYRINGE SUBCUT (08:50)
[2020-11-26] MEDS: ATORVASTATIN 20 MG TABLET 40 MG PO (08:50)
[2020-11-26] MEDS: predniSONE 5 MG TABLET PO (08:51)
[2020-11-26] MEDS: DOCUSATE 100 MG CAPSULE PO (08:51)
[2020-11-26] MEDS: SODIUM CHLORIDE 0.9% FLUSH 10 ML IV (08:52)
[2020-11-26] MEDS: HYDROXYCHLOROQUINE 200 MG TABLET PO (08:52)
[2020-11-26 09:07] VITALS: BMI 22.2
--- NOTE | 2020-11-26 11:13 | CM.DPC ---
DCP Discharge Home with HH and wound care Per MD, pt remains medically stable to d/c home today with home wound vac and HH and outpt [facility] to follow. ELAINE confirmed that [facility] has accepted pt and received the referral and F2F and aware that pt will d/c home today and still have pt set to open the earliest that they can on Tuesday12/01/20 and aware that [facility] will follow for outpt wound care. RODRICK Gao kindly faxed d/c summary and MD orders to [facility] to review. ELAINE spoke to Beckie at [facility] and confirmed that pt has appointment on Tuesday11/28/20 at 1315 but should arrive at 1300 for the appt and pt has the packet of pwk to complete bedside and will go home with her to complete with CG or Dtr assist. ELAINE updated Beckie on the [facility] home wound vac that pt will d/c on. RODRICK Gao kindly called [facility] and scheduled stretcher transport for 1400 today due to wound vac, inability to safe sit upright without support, and current david/heavy assist with transfers which will not be available at home and cabulance cannot transfer pt once home. ELAINE completed BLS transport form and placed on front of pt chart. ELAINE spoke to pt's assigned CHIRAG CG client care manager Danay at [facility] ([phone]) and updated on d/c home today around 1400 and confirmed that they can have a CG at the apt when pt gets home. ELAINE spoke to CHIRAG Hand Screen Printer on today [facility] [phone] who confirms that [facility] is transferring pt's file back to [facility] and that pt approved for the additional hours and will be assigned to likely a new CHIRAG CM but that Lenka has confirmed with [facility] Danay that CHIRAG CG reinstated as of today and auth/approval will be completed prior to pt's d/c at 1400. Lenka also confirmed the Wound Care apt on Tuesday11/28/20 at 1315 and she will call Medicaid transport and set up transportation for that apt and SW does not need to work on the Tuesday apt transport. ELAINE met bedside with pt and updated on above and RODRICK Gao had provided her Medicare Message and ELAINE explained and pt is agreeable and happy to be discharging home today via BLS. Pt also glad to have a CHIRAG CG there by 1500. ELAINE inquired about her keys to apt and confirming it will be unlocked and SW called pt's Dtr while bedside and updated her on d/c today around 1400 and Dtr will make sure to be at pt's apt with the keys to have it unlocked for BLS transport. ELAINE also called pt's friend Doroteo while bedside and updated on pt d/c today and then Doroteo spoke with pt via phone. ELAINE updated RN, oil field worker, and SCALE MECHANIC and RN will be changing pt's wound vac to the bedside [employer] wound vac in room for home. Plan: Patient to d/c home via [facility] stretcher at 1400 with Dtr at the apt to unlock and [facility] CG to arrive by 1500 and [facility] apt on Tuesday11/28/20 at 1315. KERI Louis
[2020-11-26 11:27] VITALS: BP 150/69; PULSE 70; RESP 17; TEMP 36.6; O2SAT 98
== END 2020-11-26 14:15 | disposition home health service (06) | DRG 853 ==
LOC: ED 20:16 → AC 20:18 → ICU 20:28 → AC 11-12 14:36
PROVIDERS: Emergency Medicine; Family Medicine; Surgery; Admitting Provider Family Medicine; Emergency Provider Emergency Medicine; PCP Family Medicine; Referring Provider Emergency Medicine; Visit Provider Family Medicine
PROC: 0JB70ZZ Excision of Back Subcutaneous Tissue and Fascia, Open Approach (ICD-10-PCS; principal; 2020-11-11 12:30)
DX: A41.59 Other Gram-negative sepsis (principal); L89.124 Pressure ulcer of left upper back, stage 4; R65.21 Severe sepsis with septic shock; I96 Gangrene, not elsewhere classified; B96.4 Proteus (mirabilis) (morganii) as the cause of diseases classified elsewhere; M06.9 Rheumatoid arthritis, unspecified; G35 Multiple sclerosis; M40.209 Unspecified kyphosis, site unspecified; B95.7 Other staphylococcus as the cause of diseases classified elsewhere; Z99.3 Dependence on wheelchair; Z20.822 Contact with and (suspected) exposure to COVID-19
CPT/HCPCS: 36415; 36592; 51702; 71045; 80048; 80053; 80202; 81001; 83605; 83690; 84145; 85025; 87040; 87070; 87075; 87077; 87150; 87176; 87186; 87205; 87635; 87797; 93005; 94760; 94762; 96361; 96365; 96366; 96367; 97162; 97163; 97167; 97530; 97535; 99232; 99233; 99238; 99285; 99291; 99292; C9803; J0744; J1642; J1650; J2543; J2704; J3010

== ENCOUNTER → 2020-12-11 12:52 | Outpatient (CLI) | payer OTHER, MEDICAID, SELFPAY ==
[2020-11-26 09:07] VITALS: BMI 22.2
== END ==
PROVIDERS: PCP Family Medicine; Referring Provider Family Medicine; Visit Provider Family Medicine
DX: L89.104 Pressure ulcer of unspecified part of back, stage 4 (principal); G35 Multiple sclerosis; M06.9 Rheumatoid arthritis, unspecified; Z74.09 Other reduced mobility; E46 Unspecified protein-calorie malnutrition; M41.9 Scoliosis, unspecified; B96.4 Proteus (mirabilis) (morganii) as the cause of diseases classified elsewhere
CPT/HCPCS: 11042; 11045; 87070; 87075; 87077; 87147; 87186; 87205; 99204; 99214

== ENCOUNTER → 2020-12-22 09:17 | Outpatient (CLI) | payer OTHER, MEDICAID, SELFPAY ==
[2020-11-26 09:07] VITALS: BMI 22.2
== END ==
PROVIDERS: PCP Family Medicine; Referring Provider Family Medicine; Visit Provider Family Medicine
DX: L89.104 Pressure ulcer of unspecified part of back, stage 4 (principal); Z74.09 Other reduced mobility; L08.9 Local infection of the skin and subcutaneous tissue, unspecified; E46 Unspecified protein-calorie malnutrition; B95.61 Methicillin susceptible Staphylococcus aureus infection as the cause of diseases classified elsewhere
CPT/HCPCS: 11042; 11045; 97605; 99213

== ENCOUNTER → 2020-12-29 14:00 | Outpatient (CLI) | payer OTHER, MEDICAID, SELFPAY | PROVIDERS: PCP Family Medicine; Referring Provider Family Medicine; Visit Provider Family Medicine | DX: L89.104 Pressure ulcer of unspecified part of back, stage 4 (principal); G35 Multiple sclerosis; M06.9 Rheumatoid arthritis, unspecified; Z74.09 Other reduced mobility; D84.821 Immunodeficiency due to drugs; L08.9 Local infection of the skin and subcutaneous tissue, unspecified; E46 Unspecified protein-calorie malnutrition; B95.61 Methicillin susceptible Staphylococcus aureus infection as the cause of diseases classified elsewhere | CPT/HCPCS: 11043; 11046; 87070; 87075; 87077; 87147; 87186; 87205; 99213 ==

== ENCOUNTER → 2021-01-12 08:53 | Outpatient (CLI) | payer OTHER, MEDICAID, SELFPAY | PROVIDERS: PCP Family Medicine; Referring Provider Family Medicine; Visit Provider Family Medicine | DX: L89.44 Pressure ulcer of contiguous site of back, buttock and hip, stage 4 (principal); G35 Multiple sclerosis; M06.9 Rheumatoid arthritis, unspecified; Z74.09 Other reduced mobility; D84.821 Immunodeficiency due to drugs; B95.61 Methicillin susceptible Staphylococcus aureus infection as the cause of diseases classified elsewhere; B95.2 Enterococcus as the cause of diseases classified elsewhere | CPT/HCPCS: 99213 ==

== ENCOUNTER → 2021-01-26 09:26 | Outpatient (CLI) | payer OTHER, MEDICAID, SELFPAY | PROVIDERS: PCP Family Medicine; Referring Provider Family Medicine; Visit Provider Family Medicine | DX: L89.44 Pressure ulcer of contiguous site of back, buttock and hip, stage 4 (principal); G35 Multiple sclerosis; M06.9 Rheumatoid arthritis, unspecified; Z74.09 Other reduced mobility; D84.821 Immunodeficiency due to drugs | CPT/HCPCS: 11042 ==

== ENCOUNTER → 2021-02-09 09:45 | Outpatient (CLI) | payer OTHER, MEDICAID, SELFPAY | PROVIDERS: PCP Family Medicine; Referring Provider Family Medicine; Visit Provider Family Medicine | DX: L89.104 Pressure ulcer of unspecified part of back, stage 4 (principal); R60.0 Localized edema; G35 Multiple sclerosis; M06.9 Rheumatoid arthritis, unspecified; Z74.09 Other reduced mobility; D84.821 Immunodeficiency due to drugs | CPT/HCPCS: 11042 ==

== ENCOUNTER → 2021-02-23 09:50 | Outpatient (CLI) | payer OTHER, MEDICAID, SELFPAY | PROVIDERS: PCP Family Medicine; Referring Provider Family Medicine; Visit Provider Family Medicine | DX: L89.104 Pressure ulcer of unspecified part of back, stage 4 (principal); G35 Multiple sclerosis; M06.9 Rheumatoid arthritis, unspecified; Z74.09 Other reduced mobility; D84.821 Immunodeficiency due to drugs | CPT/HCPCS: 11042 ==

== ENCOUNTER → 2021-03-09 09:46 | Outpatient (CLI) | payer OTHER, MEDICAID, SELFPAY | PROVIDERS: PCP Family Medicine; Referring Provider Family Medicine; Visit Provider Family Medicine | DX: L89.104 Pressure ulcer of unspecified part of back, stage 4 (principal) | CPT/HCPCS: 99213 ==

== ENCOUNTER → 2021-04-06 09:56 | Outpatient (CLI) | payer OTHER, MEDICAID, SELFPAY | PROVIDERS: PCP Family Medicine; Referring Provider Family Medicine; Visit Provider Family Medicine | DX: L89.44 Pressure ulcer of contiguous site of back, buttock and hip, stage 4 (principal); G35 Multiple sclerosis; M06.9 Rheumatoid arthritis, unspecified; Z74.09 Other reduced mobility; D84.821 Immunodeficiency due to drugs | CPT/HCPCS: 99212; 99214 ==

== ENCOUNTER 2021-07-06 18:13 | Inpatient (IN) | payer OTHER, MEDICAID, SELFPAY ==
[2021-07-06] VITALS (40 sets, daily range): BP systolic 74–156; BP diastolic 41–107; PULSE 93–153; RESP 6–31; TEMP 36.3–36.4; O2SAT 93–97; BMI 27.1
--- NOTE | 2021-07-06 18:23 | DI.RAD.S_ITS ---
PROCEDURE: XR CHEST 1V INDICATIONS: chest pain TECHNIQUE: One view of the chest was acquired. COMPARISON: [facility], CR, XR CHEST FOR PICC 1V, 11/10/2020, 0:12. FINDINGS: Heart size enlarged. Moderate vascular congestion present. There is obscuration of both hemidiaphragms with a blunting of both costophrenic angles noted. Both lung apices obscured by the patient's mandible. Generalized decrease in osseous mineralization noted. IMPRESSION: Cardiomegaly, moderate vascular congestion bibasilar pleural effusions with atelectasis and infiltrate. Limited study Approved by: Baljit Schilling M.D. on 07/06/2021 at 18:20
--- NOTE | 2021-07-06 18:28 | ED_ITS ---
HPI - Arrhythmia/Palpitations General Chief Complaint: Arrhythmia/Palpitations Stated Complaint: Tachycardia Time Seen by Provider: 07/06/21 18:14 History of Present Illness HPI narrative: The patient is stem 6-year-old female arrives by EMS with palpitations the started yesterday. She complains of feeling weak. EMS found her to be in AFib with RVR. She was normotensive at the time. Cardizem 10 mg IV was given. She had a heart rate 150s at the time. Blood pressure dropped to 60 systolic, after the medications. Her blood pressure recovered. She remains tachycardic. She has no chest pain or dyspnea at this time. She thinks she has a history of arrhythmia, she is uncertain. She has chronic lower extremity weakness is wheelchair-bound. She has no history of tachyarrhythmia found in her medical record Related Data Home Medications Medication Instructions Recorded Confirmed ascorbic acid (vitamin C) 500 mg 1,000 mg PO DAILY #0 02/10/16 07/06/21 tablet folic acid 1 mg tablet 1 mg PO DAILY #0 02/10/16 07/06/21 lorazepam 0.5 mg tablet (Ativan) 0.5 mg PO HS #90 tab 02/10/16 07/06/21 multivitamin (Multiple Vitamins) 1 tab PO DAILY #0 02/10/16 07/06/21 Previous Rx's Medication Instructions Recorded mupirocin 2 % topical ointment 1 applictn TOP BID #30 gram 04/06/18 incontinence supplies #150 each 05/05/18 wheelchair #1 each 07/24/18 methotrexate sodium 2.5 mg tablet 12.5 mg PO .COMPLEX #90 tab 12/10/20 atorvastatin 40 mg tablet See Rx Instructions .ROUTE 12/15/20 .COMPLEX #90 tab hydroxychloroquine 200 mg tablet 200 mg PO BID #60 tab 12/22/20 (Plaquenil) potassium chloride 10 mEq See Rx Instructions .ROUTE 01/05/21 capsule,extended release .COMPLEX #60 cap david lift #1 ea 04/14/21 prednisone 2.5 mg tablet See Rx Instructions .ROUTE 05/22/21 .COMPLEX #90 tab Allergies Allergy/AdvReac Type Severity Reaction Status Date / Time NSAIDS (Non-Steroidal Allergy Mild Verified 06/24/20 09:42 Anti-Inflamma [NSAIDS (NON-STEROIDAL ANTI-INFLAMMA] Review of Systems Constitutional Constitutional: Denies body ache(s), Denies chills, Reports fatigue, Denies fever(s), Denies frequent falls and Reports lethargy Eyes Eyes: Denies change in vision ENT Ears, Nose, Mouth, and Throat: Denies vertigo, Denies dizziness, Denies neck pain, Denies sinus pain and Denies sinus pressure Cardiovascular Cardiovascular: Reports chest pain, Reports syncope, Reports rapid heart rate, Reports pedal edema and Reports dyspnea Respiratory Respiratory: Denies cough, Denies pain with cough and Reports dyspnea Gastrointestinal Gastrointestinal: Denies abdominal pain, Denies cramping and Denies nausea Genitourinary Genitourinary: Denies dysuria and Denies flank pain Musculoskeletal Musculoskeletal: Denies neck pain and Denies stiffness Comments: No lower extremity edema. Integumentary/Breasts Skin/Breast: Denies rash and Denies skin pain Neurologic Neurologic: Denies confusion, Denies vertigo, Denies dizziness, Reports syncope and Denies frequent falls Psychiatric Psychiatric: Denies confusion Endocrine Endocrine: Reports fatigue Hematologic/Lymphatic On Anticoagulants: No Patient History Medical History (Updated 07/07/21 @ 09:08 by Rodo Holloway MD) Hyperlipidemia Rheumatoid arthritis Social History household members: none Smoking Status: Never smoker alcohol intake: never Smoking Status: Never smoker Substance Use Type: does not use Exam Initial Vital Signs Initial Vital Signs: Vital Signs Pulse Rate 126 H 07/06/21 18:20 Respiratory Rate 6 L 07/06/21 18:20 Pulse Oximetry 93 07/06/21 18:20 Const General: cooperative, No acute distress, No anxious and frail appearing [facility] Head: normal to inspection, normocephalic and atraumatic Mouth: oral mucosae normal Throat: posterior oropharynx normal Eyes General: appearance normal, both eyes and all related structures Neck Neck: normal visual inspection, full ROM and No JVD Thyroid: nontender Chest Chest: normal inspection of the chest Resp Effort & Inspection: normal respiratory effort Auscultation: clear to auscultation bilaterally Cardio Rate: tachycardic Rhythm: abnormal rhythm irregularly irregular Heart Sounds: S1 normal and S2 normal GI Inspection: normal to inspection Palpation: soft and No tender Auscultation: normal bowel sounds Back/Spine/Pelvis Back: normal to inspection and No back tenderness Skin General: no rashes or lesions noted and pallor Neuro General: patient alert, patient awake and patient oriented x3 Other: She reviews upper extremities frequently. She is notable severe weakness bilaterally in the lower extremities. Sensory exam is normal. Extrem General: full ROM (Decreased range of motion in the lower extremities as noted above.) Psych Mental Status: mental status grossly normal Course Course Course Narrative: The initial EKG shows AFib RVR with a right bundle-branch block. Rate was 135. She had already failed IV Cardizem as noted HPI. IV metoprolol as unavailable. Digoxin 0.5 mg was given. Her blood pressure remained normal, metoprolol 25 mg p.o. was given. Over the next hour her heart slow down to the 100 range. She remains normotensive. She feels dramatically better. Cardioversion was entertained. Cardiomegaly is noted on the chest x-ray. It is unclear when she initially had onset of the AFib. At the time of admission her heart rate is controlled, her blood pressure is steady. She notes she feels much better. She will be admitted the hospital for ongoing management, an echocardiogram is suggested. Dr. Haywood is the covering physician who admits the patient. Orders Ordered: Acetaminophen (Acetaminophen 325 Mg Tablet) 650 mg PO Q6HR [facility] Apixaban (Apixaban 5 Mg Tablet) 5 mg PO BID [facility] Atorvastatin Calcium (Atorvastatin 20 Mg Tablet) 40 mg PO BEDTIME [facility] Digoxin (Digoxin 500 Mcg/2 Ml Ampul) 250 mcg IV Q6H [facility] Stop: 07/07/21 14:01 Docusate Sodium (Docusate 100 Mg Capsule) 100 mg PO BID [facility] Hydroxychloroquine Sulfate (Hydroxychloroquine 200 Mg Tablet) 200 mg PO BID [facility] Sodium Chloride (Normal Saline 0.9%) 500 mls @ 1,000 mls/hr IV BOLUS ONE Stop: 07/07/21 09:29 Methotrexate (Methotrexate 2.5 Mg Tablet) 12.5 mg PO Tu@0900,1500 [facility] Metoprolol Tartrate (Metoprolol Ir 25 Mg Tablet) 25 mg PO BID [facility] Naloxone HCl (Naloxone 0.4 Mg/Ml Vial) 0.2 mg IV Q2MIN PRN PRN Reason: Opiate Reversal Prednisone (Prednisone 5 Mg Tablet) 5 mg PO BID [facility] Discontinued Medications Digoxin (Digoxin 500 Mcg/2 Ml Ampul) 500 mcg IV NOW ONE Stop: 07/06/21 18:28 Last Admin: 07/06/21 18:44 Dose: 500 mcg Documented by: YESSY Sodium Chloride (Normal Saline 0.9%) 250 mls @ 1,000 mls/hr IV BOLUS ONE Stop: 07/06/21 22:12 Last Admin: 07/06/21 22:07 Dose: 1,000 mls/hr Documented by: LUKE Metoprolol Tartrate (Metoprolol Ir 25 Mg Tablet) 25 mg PO NOW ONE Stop: 07/06/21 19:17 Last Admin: 07/06/21 19:47 Dose: 25 mg Documented by: TONO Vital Signs Vital signs: Vital Signs - 8 hr 07/06/21 18:20 07/06/21 18:21 07/06/21 18:26 Temperature 97.5 F L Pulse Rate 126 H 130 H 128 H Respiratory Rate 6 L 25 H 16 Blood Pressure 129/77 129/77 Pulse Oximetry 93 94 97 07/06/21 18:30 07/06/21 18:31 07/06/21 18:44 Temperature Pulse Rate 136 H 139 H 153 H Respiratory Rate 21 21 Blood Pressure 126/60 126/60 Pulse Oximetry 07/06/21 18:45 07/06/21 18:46 07/06/21 18:49 Temperature Pulse Rate 153 H 151 H 148 H Respiratory Rate 29 H 28 H 24 Blood Pressure 86/45 L 95/60 Pulse Oximetry 94 94 07/06/21 18:50 07/06/21 18:52 07/06/21 18:54 Temperature Pulse Rate 148 H 143 H 147 H Respiratory Rate 24 24 25 H Blood Pressure 90/55 L 97/57 L 151/100 H Pulse Oximetry 94 94 94 07/06/21 18:56 07/06/21 19:00 07/06/21 19:15 Temperature Pulse Rate 144 H 144 H 146 H Respiratory Rate 25 H 20 21 Blood Pressure 126/92 H 123/107 H Pulse Oximetry 94 95 95 07/06/21 19:16 07/06/21 19:30 07/06/21 19:45 Temperature Pulse Rate 147 H 145 H 147 H Respiratory Rate 21 21 19 Blood Pressure 156/86 H 132/74 133/80 Pulse Oximetry 94 95 95 07/06/21 20:00 07/06/21 20:01 04/04/22 20:15 Temperature Pulse Rate 146 H 147 H 138 H Respiratory Rate 17 17 17 Blood Pressure 124/77 124/84 Pulse Oximetry 94 94 94 07/06/21 20:30 07/06/21 20:45 07/06/21 20:46 Temperature Pulse Rate 127 H 127 H 118 H Respiratory Rate 17 25 H 25 H Blood Pressure 109/66 105/58 L Pulse Oximetry 94 94 94 07/06/21 21:00 07/06/21 21:01 07/06/21 21:04 Temperature Pulse Rate 111 H 117 H 107 H Respiratory Rate 25 H 25 H 21 Blood Pressure 87/55 L 91/54 L Pulse Oximetry 95 94 94 MDM - Arrhythmia/Palpitations Lab Data Result diagrams: 07/07/21 08:30 07/07/21 08:30 Labs: Lab Results 07/06/21 07/06/21 07/06/21 Range/Units 18:20 18:20 18:20 WBC 12.9 H (4.5-11.0) X10^3/uL RBC 4.24 (4.0-5.2) X10^6/uL Hgb 13.2 (12.0-16.0) g/dL Hct 39.6 (36-46) % MCV 93.4 (80-100) fL MCH 31.1 (26-34) PG MCHC 33.3 (30-36) % RDW 14.8 (11.6-14.8) % Plt Count 229 (150-400) X10^3/uL Neut % (Auto) 68.4 (50-75) % Lymph % (Auto) 22.5 L (25-40) % Child[place] % (Auto) 6.6 (3-14) % Eos % (Auto) 1.3 L (2-4) % Baso % (Auto) 1.2 (0-2) % Neut # (Auto) 8900 H (6966-6560) /uL Lymph # (Auto) 2900 (6654-7373) /uL [place] # (Auto) 900 (0-900) /uL Eos # (Auto) 200 (0-450) /uL Baso # (Auto) 200 H (0-100) /uL PT 13.0 H (10.1-12.7) SECONDS INR 1.2 (0.9-1.3) APTT 29 (26.4-36.2) SECONDS Sodium 138 (137-145) mmol/L Potassium 4.1 (3.4-5.1) mmol/L Chloride 105 (98-107) mmol/L Carbon Dioxide 25 (22-32) mmol/L BUN 16 (7-17) mg/dL Creatinine 0.44 L (0.52-1.04) mg/dL Estimated GFR > 60.0 (>60) mL/min BUN/Creatinine Ratio 36.4 H (6-22) Glucose 133 H (80-110) mg/dL Calcium 9.2 (8.4-10.2) mg/dL Magnesium 2.1 (1.6-2.3) mg/dL Total Bilirubin 0.5 (0.2-1.3) mg/dL AST 21 (14-36) IU/L ALT 12 (<35) IU/L Alkaline Phosphatase 34 L (38-126) U/L Total Creatine Kinase 24 L (30-135) U/L CK-MB (CK-2) TNP CK-MB (CK-2) Rel Index TNP Troponin I < 0.012 (0.01-0.034) ng/mL NT-Pro-B Natriuret Pep 502 H (<450) pg/mL Total Protein 6.5 (6.3-8.2) g/dL Albumin 3.9 (3.5-5.0) g/dL Globulin 2.6 (1.7-4.1) g/dL Albumin/Globulin Ratio 1.5 (1.0-2.8) Lipase 66 (23-300) U/L SARS-CoV-2 (PCR) (Negative) 07/06/21 Range/Units 19:55 WBC (4.5-11.0) X10^3/uL RBC (4.0-5.2) X10^6/uL Hgb (12.0-16.0) g/dL Hct (36-46) % MCV (80-100) fL MCH (26-34) PG MCHC (30-36) % RDW (11.6-14.8) % Plt Count (150-400) X10^3/uL Neut % (Auto) (50-75) % Lymph % (Auto) (25-40) % Childress % (Auto) (3-14) % Eos % (Auto) (2-4) % Baso % (Auto) (0-2) % Neut # (Auto) (3902-4261) /uL Lymph # (Auto) (6048-2399) /uL Childress # (Auto) (0-900) /uL Eos # (Auto) (0-450) /uL Baso # (Auto) (0-100) /uL PT (10.1-12.7) SECONDS INR (0.9-1.3) APTT (26.4-36.2) SECONDS Sodium (137-145) mmol/L Potassium (3.4-5.1) mmol/L Chloride (98-107) mmol/L Carbon Dioxide (22-32) mmol/L BUN (7-17) mg/dL Creatinine (0.52-1.04) mg/dL Estimated GFR (>60) mL/min BUN/Creatinine Ratio (6-22) Glucose (80-110) mg/dL Calcium (8.4-10.2) mg/dL Magnesium (1.6-2.3) mg/dL Total Bilirubin (0.2-1.3) mg/dL AST (14-36) IU/L ALT (<35) IU/L Alkaline Phosphatase (38-126) U/L Total Creatine Kinase (30-135) U/L CK-MB (CK-2) CK-MB (CK-2) Rel Index Troponin I (0.01-0.034) ng/mL NT-Pro-B Natriuret Pep (<450) pg/mL Total Protein (6.3-8.2) g/dL Albumin (3.5-5.0) g/dL Globulin (1.7-4.1) g/dL Albumin/Globulin Ratio (1.0-2.8) Lipase (23-300) U/L SARS-CoV-2 (PCR) Negative (Negative) Imaging Data Chest x-ray: Radiologist's Impresson: [address] [address] XRay Report Signed Patient: Juliana Angel MR#: [id number] : 1945 Acct:[id number] Age/Sex: 76 / F Date of Service: 07/06/21 Loc: ED Accession Number: [id number] ?? Procedure: XR chest 1V Ordering Provider: Rodo Holloway MD PROCEDURE:? XR CHEST 1V ? INDICATIONS:? chest pain ? TECHNIQUE:? One view of the chest was acquired.? ? COMPARISON:? [facility], CR, XR CHEST FOR PICC 1V, 11/10/2020, 0:12. ? FINDINGS: Heart size enlarged.? Moderate vascular congestion present.? There is obscuration of both hemidiaphragms with a blunting of both costophrenic angles noted.? Both lung apices obscured by the patient's mandible. Generalized decrease in osseous mineralization noted. ? IMPRESSION:? ? Cardiomegaly, moderate vascular congestion bibasilar pleural effusions with atelectasis and infiltrate. ? Limited study ? ? ? Approved by: Baljit Schilling M.D. on 07/06/2021 at 18:20? ECG Data Attestation: I personally reviewed and interpreted this ECG as follows: (EKG 1.: AFib with BBB rate 135. Irregular ST segments, not obviously acute. EKG 2.: AFib RVR now rate 103 beats per minute. Left axis is noted. LBBB is noted. ) Critical Care Time Critical Care Time Critical Care Time: Yes Total Critical Care Time: 70 Attestation: Critical care includes initial patient assessment, review of past medical records., review of current EKG, lab in radiology data. At times the patient required constant attention, and multiple medical decisions required. Critical care time includes reviewing the case with admitting hospitalist. Discharge Plan Departure Patient Disposition: Admitted As Inpatient Clinical Impression: Atrial fibrillation with RVR, Complete left bundle branch block Admit Date/Time: 07/06/21 21:51 Admit Provider: Isac Haywood
[2021-07-06 18:36] LABS: Add Manual Diff / Slide Review NO; Basophils Absolute Auto 200 /uL (0-100); Basophils Percent Auto 1.2 % (0-2); Eosinophils Absolute Auto 200 /uL (0-450); Eosinophils Percent Auto 1.3 % (2-4); Hematocrit 39.6 % (36-46); Hemoglobin 13.2 g/dL (12.0-16.0); Lymphocytes Absolute Auto 2900 /uL (1100-4500); Lymphocytes Percent Auto 22.5 % (25-40); Mean Corpuscular HGB Conc 33.3 % (30-36); Mean Corpuscular Hemoglobin 31.1 PG (26-34); Mean Corpuscular Volume 93.4 fL (80-100); Monocytes Absolute Auto 900 /uL (0-900); Monocytes Percent Auto 6.6 % (3-14); Neutrophils Absolute Auto 8900 /uL (1500-7000); Neutrophils Percent Auto 68.4 % (50-75); Platelet Count 229 X10^3/uL (150-400); Red Blood Cell Count 4.24 X10^6/uL (4.0-5.2); Red Cell Distribution Width 14.8 % (11.6-14.8); White Blood Cell Count 12.9 X10^3/uL (4.5-11.0)
[2021-07-06 18:39] LABS: INR 1.2 (0.9-1.3)
[2021-07-06 18:42] LABS: PTT Partial Thromboplastin Tim 29 SECONDS (26.4-36.2)
[2021-07-06 18:44] LABS: Alanine Aminotransferase 12 IU/L (<35); Albumin 3.9 g/dL (3.5-5.0); Albumin Globulin Ratio 1.5 (1.0-2.8); Alkaline Phosphatase 34 U/L (38-126); Aspartate Aminotransferase 21 IU/L (14-36); BUN Creatinine Ratio 36.4 (6-22); Bilirubin Total 0.5 mg/dL (0.2-1.3); Blood Urea Nitrogen 16 mg/dL (7-17); Calcium 9.2 mg/dL (8.4-10.2); Carbon Dioxide 25 mmol/L (22-32); Chloride 105 mmol/L (98-107); Creatine Kinase 24 U/L (30-135); Estimated Glomerular Filt Rate > 60.0 mL/min (>60); Globulin 2.6 g/dL (1.7-4.1); Glucose 133 mg/dL (80-110); HEMOLYSIS < 15 (0-50); Lipase 66 U/L (23-300); Magnesium 2.1 mg/dL (1.6-2.3); Potassium 4.1 mmol/L (3.4-5.1); Sodium 138 mmol/L (137-145); Total Protein 6.5 g/dL (6.3-8.2)
[2021-07-06] MEDS: DIGOXIN 500 MCG/2 ML AMPUL IV (18:44)
[2021-07-06 18:56] LABS: NT-proBNP (BNP-Adult 18+) 502 pg/mL (<450); Troponin I < 0.012 ng/mL (0.01-0.034)
--- NOTE | 2021-07-06 19:04 | PC.NURSE ---
reported vs to dr rose, hr 149, bp did drop to 80's systolic during digoxin iv push. now 127/107. dr rose at bedside.
--- NOTE | 2021-07-06 19:11 | PC.NURSE ---
pt c/o upset stomach yesterday and neck pain. still feeling unwell today and decided she needed to call for help.
[2021-07-06] MEDS: METOPROLOL IR 25 MG TABLET PO (19:47)
[2021-07-06 20:48] LABS: COVID19 -Nasal RAPID Negative (Negative)
--- NOTE | 2021-07-06 22:00 | PC.NURSE ---
Pt arrived with EMS in afib RVR in 150's, possibly new onset beginning sometime in the last 24 hours and not anticoagulated that we are aware of at this time. given 10mg Cardizem IV by EMS. Pt noted to have hypotension in the 60's shortly after administration. MD aware and no order order for cardizem gtt placed. pt given multiple medications per JUN for rate control. Pt 105 at this time and appears to be resting comfortably without distress. denies CP or SOB.
[2021-07-06] MEDS: SODIUM CHLORIDE 0.9% 250 ML 1000 ML IV (22:07)
[2021-07-07] VITALS (8 sets, daily range): BP systolic 74–109; BP diastolic 46–61; PULSE 45–124; RESP 17–20; TEMP 36.4–37.2; O2SAT 93–96
--- NOTE | 2021-07-07 07:13 | PM.HP.1 ---
History of Present Illness History of Present Illness Date Patient Seen: 07/07/21 Time Patient Seen: 07:00 Chief complaint: Tachycardia Narrative: 76-year-old female who is wheelchair-bound history of multiple sclerosis rheumatoid arthritis hyperlipidemia osteoporosis with kyphoscoliosis who is fairly homebound states yesterday that she just was not feeling well. She has caregivers that come in in the morning and caregivers in the afternoon. She lives at [facility]. She says yesterday morning she tried to swallow a few things in just felt like it she could get things down. [place] weak. In the afternoon did not feel any better. The caregiver came and evaluated her found her blood pressure was to be low. Patient states the only thing she really remembers yesterday as some stomach upset difficulty swallowing and nausea. She says she has never really had palpitations from her heart and not aware that she has had atrial fibrillation. She says she currently feels back to her baseline. She has no chest pain dizziness lightheadedness fevers or chills. She is not feeling any palpitations. Patient denies a history of any heart disease. She is on a statin. She says she has never had an irregular heart rhythm and never bled on blood thinners and never had a contraindication to being on blood thinners. Patient recognizes she is in and a [place] she says she is lip term a long time. She is unsure of date. She knows she is at [facility]. Patient History Family & Social History Social History: household members none Prior Living Arrangements Shelter Facility Safety & Behavioral: Feels Safe in Current Yes Environment Been Physically Hurt or No Threatened By a Person Suicidal Ideation Description None Suicide Plan Description No Plan Tobacco & Substance use: Smoking Status Never smoker alcohol intake never Substance Use Type does not use Meds Home Medications and Allergies Home Medications Medication Instructions Recorded Confirmed Type ascorbic acid (vitamin C) 500 mg 1,000 mg PO DAILY #0 02/10/16 07/06/21 History tablet folic acid 1 mg tablet 1 mg PO DAILY #0 02/10/16 07/06/21 History lorazepam 0.5 mg tablet (Ativan) 0.5 mg PO HS #90 tab 02/10/16 07/06/21 History multivitamin (Multiple Vitamins) 1 tab PO DAILY #0 02/10/16 07/06/21 History mupirocin 2 % topical ointment 1 applictn TOP BID #30 gram 04/06/18 07/06/21 Rx incontinence supplies #150 each 05/05/18 07/07/21 Rx wheelchair #1 each 07/24/18 07/07/21 Rx methotrexate sodium 2.5 mg tablet 12.5 mg PO .COMPLEX #90 tab 12/10/20 07/06/21 Rx atorvastatin 40 mg tablet See Rx Instructions .ROUTE 12/15/20 07/06/21 Rx .COMPLEX #90 tab hydroxychloroquine 200 mg tablet 200 mg PO BID #60 tab 12/22/20 07/06/21 Rx (Plaquenil) potassium chloride 10 mEq See Rx Instructions .ROUTE 01/05/21 07/06/21 Rx capsule,extended release .COMPLEX #60 cap david lift #1 ea 04/14/21 07/07/21 Rx prednisone 2.5 mg tablet See Rx Instructions .ROUTE 05/22/21 07/06/21 Rx .COMPLEX #90 tab Allergies Allergy/AdvReac Type Severity Reaction Status Date / Time NSAIDS (Non-Steroidal Allergy Mild Verified 06/24/20 09:42 Anti-Inflamma [NSAIDS (NON-STEROIDAL ANTI-INFLAMMA] Exam Vital Signs (past 8 hours): - 07/07/21 03:00 Temperature 98.9 F Pulse Rate 78 Respiratory Rate 17 Blood Pressure 94/55 L Pulse Oximetry 93 Oxygen Delivery Method Room Air Oxygen Flow Rate 95 Narrative Exam Narrative: Gen.: Frail appearing elderly female patient HEENT: Pupils equal round and reactive neck is supple oral mucosa is moist Cardio: S1-S2 irregular rate and rhythm tachycardic Respiratory: Lungs are clear without wheezes or crackles normal respiratory effort Abdomen: Soft nondistended Extremities: Patient has movement of upper and lower extremities with generalized weakness. She is basically bedbound peer Neurologic: No focal neurological deficit Objective Labs Result Diagrams: 07/06/21 18:20 07/06/21 18:20 Labs: Laboratory Results - last 24 hr 07/06/21 07/06/21 07/06/21 18:20 18:20 18:20 WBC 12.9 H RBC 4.24 Hgb 13.2 Hct 39.6 MCV 93.4 MCH 31.1 MCHC 33.3 RDW 14.8 Plt Count 229 Neut % (Auto) 68.4 Lymph % (Auto) 22.5 L Elliott % (Auto) 6.6 Eos % (Auto) 1.3 L Baso % (Auto) 1.2 Neut # (Auto) 8900 H Lymph # (Auto) 2900 Elliott # (Auto) 900 Eos # (Auto) 200 Baso # (Auto) 200 H PT 13.0 H INR 1.2 APTT 29 Sodium 138 Potassium 4.1 Chloride 105 Carbon Dioxide 25 BUN 16 Creatinine 0.44 L Estimated GFR > 60.0 BUN/Creatinine Ratio 36.4 H Glucose 133 H Calcium 9.2 Magnesium 2.1 Total Bilirubin 0.5 AST 21 ALT 12 Alkaline Phosphatase 34 L Total Creatine Kinase 24 L CK-MB (CK-2) TNP CK-MB (CK-2) Rel Index TNP Troponin I < 0.012 NT-Pro-B Natriuret Pep 502 H Total Protein 6.5 Albumin 3.9 Globulin 2.6 Albumin/Globulin Ratio 1.5 Lipase 66 SARS-CoV-2 (PCR) 07/06/21 19:55 WBC RBC Hgb Hct MCV MCH MCHC RDW Plt Count Neut % (Auto) Lymph % (Auto) Elliott % (Auto) Eos % (Auto) Baso % (Auto) Neut # (Auto) Lymph # (Auto) Elliott # (Auto) Eos # (Auto) Baso # (Auto) PT INR APTT Sodium Potassium Chloride Carbon Dioxide BUN Creatinine Estimated GFR BUN/Creatinine Ratio Glucose Calcium Magnesium Total Bilirubin AST ALT Alkaline Phosphatase Total Creatine Kinase CK-MB (CK-2) CK-MB (CK-2) Rel Index Troponin I NT-Pro-B Natriuret Pep Total Protein Albumin Globulin Albumin/Globulin Ratio Lipase SARS-CoV-2 (PCR) Negative Assessment & Plan Assessment and plan (1) Atrial fibrillation with RVR: Status: Acute Plan Atrial fibrillation with rapid ventricular response: 76-year-old female with atrial fibrillation with rapid ventricular response. Patient has also a left bundle branch block. Patient has been quite tachycardic and hypotensive. She was given Cardizem in the field by EMS given digoxin here in the hospital IV and also an intermediate release metoprolol. She is at times still quite tachycardic and a little bit hypotensive. She was given initially a little bit of fluids. Over the evening her blood pressures been a little bit low. She has been relatively asymptomatic with this. She has been still quite tachycardic despite the digoxin and the metoprolol. Today we will order an echocardiogram check a magnesium level PT and INR. Her chads 2 Vasc score is 4. There is no contraindication for her being on anticoagulation and will start Eliquis 5 mg twice a day. Because she is mildly hypotensive we will continue with digoxin and do 0.25 mg for 2 more doses IV. Will start on low-dose him intermediate release metoprolol at 25 mg twice a day and we will adjust the dose based on her hypotension. She is not symptomatic and I do not think she needs to be cardioverted at this point. Supplement her magnesium is needed. Anticipate hospital stay for a couple of days to get this sorted out. Patient has a chronic history of left bundle branch block. Rheumatoid arthritis. Patient has a longstanding history of rheumatoid arthritis. Will continue with her home methotrexate and prednisone. Will hold off on increasing doses of prednisone at this point. Will provide 5 mg twice a day at this and methotrexate. Monitor kidney and liver function. Moderate malnutrition. Per provided nutritional consultation for food. 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 Do a complete skin evaluation exam here by the nurses today. Provide positioning bed changes except track. Nutritional consult for additional nutritional help. Multiple sclerosis. Chronic and stable. Currently not on any medication. DVT prophylaxis patient with SCDs. She started on Eliquis for her anticoagulation not needed. Disposition plan. Dissipated hospitalization for couple of days to get her atrial fibrillation stabilized and further evaluated on anticoagulation. Anticipate discharge back to [facility] with caregivers. Time Spent With Patient Critical Care time: I spent a total of [] minutes of critical care time on this patient's care today; this time is exclusive of procedural time. Scores CHADS-VASc Congestive heart failure: no Hypertension: yes Age 75 years or older: yes Diabetes mellitus: no Stroke, TIA, or TE: no Vascular disease: no Age 65 to 74 years: no Sex category (female): Female CHADS-VASc Score: 4 Quality VTE Deep Vein Thrombosis/Pulmonary Embolism Present on Admission: No
--- NOTE | 2021-07-07 07:48 | DI.ECHO.S_ITS ---
[facility]---------+ [facility] +---------+ : : [address] : [place] : : : : [id number] : : : : Phone: [phone]+ Echocardiogram Report + + :Name: CHINMAY SIMS Study Date: 07/07/2021 Height: 62 in : :[facility] ReadingLocation: Weight: 148 lb: : Gender: Female BSA: 1.7 m2 : :: 1945 Age: 76 yrs BP: 90/69 mmHg: :Reason For Study: ATRIAL FIBRILLATION : :Ordering Physician: MERVAT, : :LORETA Performed By: Mayte Sanchez : :Referring: LORETA CROWELL : + + Interpretation Summary 1) Mildly increased left ventricular thickness (concentric) with moderately to severely reduced systolic function (EF 30-35%). 2) Mildly enlarged right ventricle with mildly reduced function. 3) The left atrium is severely dilated. 4) Calcific mitral valve with mild stenosis (mean gradient 5mmHg) and mild mitral regurgitation. 5) There is moderate to severe aortic stenosis (valve area 1cm2, mean gradient 24mmHg, severity ratio 0.34). 6) There is mild to moderate tricuspid regurgitation. 7) The right ventricular systolic pressure is estimated to be at least 38 mmHg based on an estimated right atrial pressure of 3 mm Hg. 8) Atrial fibrillation with rapid ventricular rates present during the study (rates 113-156bpm). 9) No prior Echo available for comparison. Procedure: A two-dimensional transthoracic echocardiogram with color flow and Doppler was performed. The study quality was technically adequate. There is no prior echocardiogram noted for this patient. The patient was in atrial fibrillation with heart rates between 113-156 bpm during the exam. Left Ventricle: The left ventricle is normal in size. There is mild concentric left ventricular hypertrophy. The ejection fraction is estimated to be 30-35%. Diastolic function could not be accurately assessed due to atrial fibrillation. Right Ventricle: The right ventricle is mildly dilated. Right ventricular systolic function is mildly reduced. Atria: The left atrium is severely dilated. The right atrium is mildly dilated. There is no Doppler evidence for an interatrial shunt. Mitral Valve: There is severe mitral annular calcification. The mitral valve leaflets are mildly calcified. The mitral valve mean gradient is 5 mmHg. There is mild mitral regurgitation. Aortic Valve: The aortic valve is moderately calcified. There is severely reduced leaflet mobility. There is moderate to severe aortic stenosis. The peak aortic velocity is 3.2 m/sec. The aortic valve mean gradient is 24 mmHg. The calculated aortic valve area is 0.96 cm2. There is mild aortic regurgitation. Tricuspid Valve: The tricuspid valve is normal in structure and function. There is mild to moderate tricuspid regurgitation. The right ventricular systolic pressure is estimated to be at least 38 mmHg based on an estimated right atrial pressure of 3 mm Hg. Pulmonic Valve: The pulmonic valve leaflets are thin and pliable; valve motion is normal. There is mild pulmonic regurgitation. Great Vessels: The aortic root is normal size. The dimensions of the ascending aorta are normal. The IVC is of normal diameter and collapses greater than 50% with a sniff. This suggests a low right atrial pressure of 3 mm Hg. Pericardium/ Pleura There is no pericardial effusion. There is no pleural effusion. MMode/2D Measurements & Calculations LVIDd: 5.0 cm LVOT diam: 2.0 cm LVIDs: 3.7 cm Ao root diam: 2.5 cm FS: 26.5 % asc Aorta Diam: 3.0 cm IVSd: 1.4 cm Ao Arch Diam (Prox Trans): 2.2 cm LVPWd: 1.3 cm LV mcgraw. diameter/BSA (cm/m^2): 3.0 LV sys. diameter/BSA (cm/m^2): 2.2 LA A2 area: 27.7 cm2 RA long axis: 4.7 cm LA A4 area: 26.8 cm2 RA area: 17.6 cm2 LA length (vol): 5.8 cm RA vol: 56.2 ml LA vol: 109.7 ml RA : 33.4 ml/m2 LA vol index: 65.2 ml/m2 IVC diam: 2.0 cm RVD1 (basal): 4.1 cm RVD2 (mid): 3.4 cm TAPSE: 1.4 cm Doppler Measurements & Calculations Ao V2 max: 323.0 cm/sec LVOT Max Santi: 96.2 cm/sec Ao V2 mean: 233.4 cm/sec LV V1 max P.7 mmHg Ao max P.0 mmHg LV V1 VTI: 16.1 cm Ao mean P.7 mmHg MICHAEL(I,D): 1.1 cm2 Ao V2 VTI: 47.6 cm MICHAEL(V,D): 0.96 cm2 sev ratio: 0.34 MICHAEL indexed to BSA (cm^2/m^2): 0.65 MV E max santi: 151.3 cm/sec TR max santi: 296.3 cm/sec MV A max santi: 3.1 cm/sec TR max P.1 mmHg MV E/A: 49.5 PA V2 max: 101.3 cm/sec Med Peak E' Santi: 4.5 cm/sec PA V2 mean: 63.4 cm/sec E/E' med: 34.0 PA mean P.9 mmHg Lat Peak E' Santi: 6.3 cm/sec E/E' lat: 24.1 E/e' average: 29.0 MV dec time: 0.12 sec MVA(VTI): 2.1 cm2 MV V2 mean: 96.2 cm/sec SV(LVOT): 51.9 ml MV mean P.2 mmHg MV V2 VTI: 25.1 cm Reading Physician:01:36 PM
--- NOTE | 2021-07-07 08:24 | PC.NURSE ---
Addendum entered by Mony De La Rosa R.N. 07/07/21 15:52: Late entry: This morning around 1000 patient had a 5 beat run of VT, several runs, with bigeminal PVCs. is aware. Patients blood pressure is now stable with systolic in the mid 80s. Addendum entered by Mony De La Rosa R.N. 07/07/21 12:54: Patients blood pressure 89/50s. She is eating lunch and tolerating well.. Addendum entered by Mony De La Rosa R.N. 07/07/21 09:31: Patient is doing well. She is asymptomatic with her low blood pressure. Her NS bolus is fininshing up and she is eating her breakfast. Will recheck blood pressure when this is done. Patient has some skin issues that can be seen under physical assessment.. She does have redness under breasts and folds, and some excoriation and redness on her bottom. She denies pain or dizziness. Talking on the phone now. Addendum entered by Mony De La Rosa R.N. 07/07/21 09:11: called back and ns 500cc bolus started for patient and we will give her digoxin when her blood pressure goes up. Original Note: Assess-Patients blood pressure 80/40s and 70s/40s. She is asymptomatic and not dizzy or feeling syncopal. Tele is Afib this morning, betwee 100-130s pulse. Phone call and message sent out to to call back.
[2021-07-07 08:47] LABS: Add Manual Diff / Slide Review NO; Basophils Absolute Auto 100 /uL (0-100); Eosinophils Absolute Auto 400 /uL (0-450); Eosinophils Percent Auto 3.7 % (2-4); Hematocrit 37.1 % (36-46); Hemoglobin 12.3 g/dL (12.0-16.0); Lymphocytes Absolute Auto 2700 /uL (1100-4500); Lymphocytes Percent Auto 27.7 % (25-40); Mean Corpuscular HGB Conc 33.2 % (30-36); Mean Corpuscular Hemoglobin 30.9 PG (26-34); Monocytes Absolute Auto 600 /uL (0-900); Monocytes Percent Auto 6.3 % (3-14); Neutrophils Absolute Auto 5900 /uL (1500-7000); Neutrophils Percent Auto 61.3 % (50-75); Platelet Count 212 X10^3/uL (150-400); Red Blood Cell Count 3.99 X10^6/uL (4.0-5.2); Red Cell Distribution Width 14.5 % (11.6-14.8); White Blood Cell Count 9.7 X10^3/uL (4.5-11.0)
[2021-07-07 08:56] LABS: INR 1.2 (0.9-1.3); Prothrombin Time 13.6 SECONDS (10.1-12.7)
[2021-07-07 09:01] LABS: Alanine Aminotransferase 11 IU/L (<35); Albumin 3.6 g/dL (3.5-5.0); Albumin Globulin Ratio 1.5 (1.0-2.8); Alkaline Phosphatase 37 U/L (38-126); Aspartate Aminotransferase 22 IU/L (14-36); BUN Creatinine Ratio 24.4 (6-22); Bilirubin Total 0.5 mg/dL (0.2-1.3); Blood Urea Nitrogen 11 mg/dL (7-17); Calcium 8.9 mg/dL (8.4-10.2); Carbon Dioxide 29 mmol/L (22-32); Chloride 105 mmol/L (98-107); Estimated Glomerular Filt Rate > 60.0 mL/min (>60); Globulin 2.4 g/dL (1.7-4.1); Glucose 87 mg/dL (80-110); HEMOLYSIS < 15 (0-50); Sodium 141 mmol/L (137-145)
[2021-07-07 09:09] LABS: NT-proBNP (BNP-Adult 18+) 2510 pg/mL (<450)
[2021-07-07] MEDS: SODIUM CHLORIDE 0.9% 500 ML 1000 ML IV ×2 (09:30→20:35)
[2021-07-07] MEDS: DIGOXIN 500 MCG/2 ML AMPUL 250 MCG IV ×2 (10:23→16:59)
[2021-07-07] MEDS: ACETAMINOPHEN 325 MG TABLET 650 MG PO (12:36)
[2021-07-07] MEDS: predniSONE 5 MG TABLET PO ×2 (12:36→20:31)
[2021-07-07] MEDS: APIXABAN 5 MG TABLET PO ×2 (12:36→20:30)
[2021-07-07] MEDS: DOCUSATE 100 MG CAPSULE PO ×2 (12:36→20:30)
[2021-07-07] MEDS: HYDROXYCHLOROQUINE 200 MG TABLET PO ×2 (12:36→20:31)
--- NOTE | 2021-07-07 12:44 | PT-IP ANOTE ---
PT artemio received. talked with pt to obtain PLOF and home set up. pt was admitted to the hospital november of last year and pt stated that she has been bed bound ever since. 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 stated that she has a david lift at her apartment but does not want to use a david and has not transferred to her electric e/c since november of last year. prior to november 2020 hospital admission, pt was w/c bound using an electric w/c and was total A with squat pivot transfer. Pt is at PLOF and no PT intervention indicated at this time. 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
--- NOTE | 2021-07-07 16:21 | CM.DANOTE ---
DCP Assessment: Patient is 76 yr old female admitted for Tachycardia. CM Met with patient at the bedside and explained role. Patient was alert and oriented x4. patient is currently bed bound but does have a wheel chair at home but is not strong enough to transport into it at this time. patient stated she has caregivers 7 days a week in the AM and PM during the week and all day on the weekends. patient would like to have HH to work on body strength to maybe be able to use her wheel chair in her house again. CM will work on getting F2F signed. Patient was given Medicare choice list and patient chose [facility] . CM department will contact [facility] and send clinicals for their review once F2F is signed. I: [facility] and self pay Plan: [place] home with private pay care givers and [facility] for PT and OT to build strength in the hopes of being able to use her wheel chair at home again Katharine Wiley RNmarket research manager Discharge Planning/Care Management CM Discharge Assessment Start: 07/07/21 16:11 Freq: Status: Active Protocol: Document 07/07/21 16:11 HS (Rec: 07/07/21 16:21 HS [id number]) Discharge Planning Assessment Assigned Director Communications Katharine Wiley RN Case Mananger DPOA/Assigned Designee Name Emery Angel Contact Information [phone] Advance Directives? Yes: POLST Advance Directives on File Yes History Provided By Patient,Medical Record Has Patient been admitted in last 30 No days? Prior Living Arrangements Intermediate Facility Comment lives at [facility] Household Members none Type of transporation used prior to Relies on Others admit Facility Name Admitted From: [facility] Willing to Return to Facility? Yes Independent with ADL's No Is patient alert and oriented? Yes Needs Assistance With Bathing,Eating,Grooming,Meal Prep,Toileting,Managing Medications,Home Chores / Shopping Caregiver for Another No Barriers to Discharge No Discharge Plan Home with Home Health Referrals Initiated Home Health,Other Additional Comment patient would like [facility] services for PT and OT to gain strength to beable to use her wheel chair again- Medicare Choice List Provided Yes SNF/HH Preference [facility] is preferrence Whiteboard Updated in Patient Room with Yes name and ext. # of Director Communications Review Status In Process Next Review Type Continued Stay Review
[2021-07-07] MEDS: ATORVASTATIN 20 MG TABLET 40 MG PO (20:31)
[2021-07-07] MEDS: SODIUM CHLORIDE 0.9% FLUSH 10 ML IV (20:31)
[2021-07-07] MEDS: METOPROLOL IR 25 MG TABLET PO (21:11)
--- NOTE | 2021-07-07 22:05 | PC.NURSE ---
Patient is alert and oriented. Breath sounds CTA with RA sat of 96%. HR irregular w/telemetry reading of afib RVR with rate of 124. BP low at 87/58. Dr Haywood was contacted regarding HR sustaining in 120-140 range as well as low BP and fluid bolus was ordered after which BP was 109/61 and able to medicated with Metoprolol IR per MD order. Denied nausea. BT present and abdomen is soft. Is incontinent of B&B. Able to move self in bed. Gets out of bed with Kwesi lift/2 assists. Is able to move LE but weakness related to RA and MS. Groins/perinueum reddened but without open areas. Bilateral calf SCD's applied. Denied pain. Fall risk score is high and bed alarm is activated.
[2021-07-08] VITALS (8 sets, daily range): BP systolic 84–103; BP diastolic 38–77; PULSE 79–104; RESP 15–18; TEMP 35.9–36.8; O2SAT 94–98
[2021-07-08 05:00] LABS: Add Manual Diff / Slide Review NO; Basophils Absolute Auto 100 /uL (0-100); Basophils Percent Auto 0.7 % (0-2); Eosinophils Absolute Auto 100 /uL (0-450); Eosinophils Percent Auto 0.7 % (2-4); Hemoglobin 11.8 g/dL (12.0-16.0); Lymphocytes Absolute Auto 1800 /uL (1100-4500); Lymphocytes Percent Auto 16.3 % (25-40); Mean Corpuscular HGB Conc 32.9 % (30-36); Mean Corpuscular Hemoglobin 30.6 PG (26-34); Monocytes Absolute Auto 600 /uL (0-900); Monocytes Percent Auto 5.4 % (3-14); Neutrophils Absolute Auto 8500 /uL (1500-7000); Neutrophils Percent Auto 76.9 % (50-75); Platelet Count 198 X10^3/uL (150-400); Red Blood Cell Count 3.88 X10^6/uL (4.0-5.2); Red Cell Distribution Width 14.6 % (11.6-14.8); White Blood Cell Count 11.1 X10^3/uL (4.5-11.0)
[2021-07-08 05:12] LABS: BUN Creatinine Ratio 32.6 (6-22); Blood Urea Nitrogen 15 mg/dL (7-17); Calcium 8.7 mg/dL (8.4-10.2); Carbon Dioxide 30 mmol/L (22-32); Chloride 106 mmol/L (98-107); Estimated Glomerular Filt Rate > 60.0 mL/min (>60); Glucose 110 mg/dL (80-110); HEMOLYSIS < 15 (0-50); Magnesium 2.1 mg/dL (1.6-2.3); Potassium 4.2 mmol/L (3.4-5.1); Sodium 142 mmol/L (137-145)
[2021-07-08 05:20] LABS: NT-proBNP (BNP-Adult 18+) 3760 pg/mL (<450)
--- NOTE | 2021-07-08 07:50 | PM.PN.1 ---
Subjective Subjective Date Patient Seen: 07/08/21 Time Patient Seen: 07:50 Interval history: Patient seen and evaluated this morning sleeping comfortably. Patient is fairly bed ridden and bedbound at home and here in the hospital. She is able to sit in the chair. Yesterday at tachycardic and a little bit hypotensive. Received 2 fluid boluses to support pressure. Received IV digoxin yesterday. Was not able to give the metoprolol because of low blood pressure was given last night. Pulses a little bit better this morning. Other than hypotensive no nursing staff concerns. Patient is eating minimally. Exam Vital Signs (past 8 hours): - 07/08/21 00:45 07/08/21 00:48 07/08/21 04:49 Temperature 97.9 F 98.1 F Pulse Rate 79 90 Respiratory Rate 18 18 Blood Pressure 98/38 L 98/55 L Pulse Oximetry 96 95 96 Oxygen Delivery Method Room Air Oxygen Flow Rate 0 Narrative Exam Narrative: Gen.: Patient is resting comfortably she is alert she knows she is in [place] at [facility] she is frail elderly appearing HEENT: Pupils equal round and reactive or mucosa is moist Cardio: S1-S2 irregular rate and rhythm systolic murmur present Respiratory: Lungs are clear no wheezes or crackles Abdomen: Soft nontender no rebound or guarding Extremities: Warm dry perfused Objective Labs Result Diagrams: 07/08/21 04:27 07/08/21 04:27 Labs: Laboratory Results - last 24 hr 07/07/21 07/07/21 07/07/21 08:30 08:30 08:30 WBC 9.7 RBC 3.99 L Hgb 12.3 Hct 37.1 MCV 93.0 MCH 30.9 MCHC 33.2 RDW 14.5 Plt Count 212 Neut % (Auto) 61.3 Lymph % (Auto) 27.7 Ida % (Auto) 6.3 Eos % (Auto) 3.7 Baso % (Auto) 1.0 Neut # (Auto) 5900 Lymph # (Auto) 2700 Ida # (Auto) 600 Eos # (Auto) 400 Baso # (Auto) 100 PT 13.6 H INR 1.2 Sodium 141 Potassium 4.0 Chloride 105 Carbon Dioxide 29 BUN 11 Creatinine 0.45 L Estimated GFR > 60.0 BUN/Creatinine Ratio 24.4 H Glucose 87 Calcium 8.9 Magnesium 2.0 Total Bilirubin 0.5 AST 22 ALT 11 Alkaline Phosphatase 37 L NT-Pro-B Natriuret Pep 2510 H Total Protein 6.0 L Albumin 3.6 Globulin 2.4 Albumin/Globulin Ratio 1.5 07/08/21 07/08/21 04:27 04:27 WBC 11.1 H RBC 3.88 L Hgb 11.8 L Hct 36.0 MCV 93.0 MCH 30.6 MCHC 32.9 RDW 14.6 Plt Count 198 Neut % (Auto) 76.9 H Lymph % (Auto) 16.3 L Ida % (Auto) 5.4 Eos % (Auto) 0.7 L Baso % (Auto) 0.7 Neut # (Auto) 8500 H Lymph # (Auto) 1800 Ida # (Auto) 600 Eos # (Auto) 100 Baso # (Auto) 100 PT INR Sodium 142 Potassium 4.2 Chloride 106 Carbon Dioxide 30 BUN 15 Creatinine 0.46 L Estimated GFR > 60.0 BUN/Creatinine Ratio 32.6 H Glucose 110 Calcium 8.7 Magnesium 2.1 Total Bilirubin AST ALT Alkaline Phosphatase NT-Pro-B Natriuret Pep 3760 H Total Protein Albumin Globulin Albumin/Globulin Ratio [facility] Medical History (Updated 07/07/21 @ 09:08 by Rodo Holloway MD) Hyperlipidemia Rheumatoid arthritis Social History household members: none Smoking Status: Never smoker alcohol intake: never Assessment & Plan Assessment and plan (1) Atrial fibrillation with RVR: Status: Acute Plan Atrial fibrillation with rapid ventricular response:? Patient continues to be a little bit tachycardic and hypotensive. Received loading doses of IV digoxin yesterday. Was also able to tolerate 1 dose of metoprolol. Blood pressures been systolic 90 is a little bit above. Heart rates been a little more tachycardic than I would like. Will continue with oral digoxin today. Oral metoprolol intermediate release to see how she tolerates this. If she continues to be hypotensive and tachycardic. Will consult with Cardiology. May have to start something like amiodarone. Continue with anticoagulation with Eliquis. Acute systolic heart failure. Patient has a reduced ejection fraction on her echocardiogram. She also has some valvular heart disease. Because of her atrial fibrillation she also has a [id number] amount of heart failure with this. She is not really tolerating further treatment because of her low blood pressure. Certainly would benefit from beta-edilson LIAN-inhibitor. Will continue with low-dose beta-edilson if tolerated. I do not think she needs further diuresis in fact she has had a couple of fluid boluses to help with her blood pressure. Rheumatoid arthritis.? Patient has a longstanding history of rheumatoid arthritis.? Will continue with her home methotrexate and prednisone.? Maintenance doses per home. I do not think her hypotension is it is due to acute adrenal insufficiency. Will continue with maintenance dose steroids. Moderate malnutrition.? Per provided nutritional consultation for food.? Encouraged nutrition today. Multiple sclerosis.? Chronic and stable.? Currently not on any medication. Patient is fairly bedridden at home and here in the hospital. Does not ambulate much. Has some skin breakdown a. Nursing is providing support for this. Continue per care orders. DVT prophylaxis patient with SCDs and on Eliquis Disposition plan.? Continue to work on improvement of blood pressure as well as reduction of pulse. Anticipate further hospitalization. May consider cardiology consultation if blood pressure and pulse do not improve today. Time Spent With Patient Critical Care time: I spent a total of [] minutes of critical care time on this patient's care today; this time is exclusive of procedural time. Quality VTE Deep Vein Thrombosis/Pulmonary Embolism Present on Admission: No
[2021-07-08] MEDS: DIGOXIN 0.125 MG TABLET PO (08:33)
[2021-07-08] MEDS: predniSONE 5 MG TABLET PO ×2 (08:33→20:16)
[2021-07-08] MEDS: APIXABAN 5 MG TABLET PO ×2 (08:33→20:16)
[2021-07-08] MEDS: DOCUSATE 100 MG CAPSULE PO ×2 (08:33→20:16)
[2021-07-08] MEDS: HYDROXYCHLOROQUINE 200 MG TABLET PO ×2 (08:34→20:17)
[2021-07-08] MEDS: SODIUM CHLORIDE 0.9% FLUSH 10 ML IV ×2 (08:40→20:18)
--- NOTE | 2021-07-08 09:34 | CM.DPC ---
DCP Cont: Per MD, pt continues to have some bp issues and some tachycardia and not stable for d/c yet today and if pt's symptoms do not resolve possible need for consulting Component Prep Operator. ELAINE called [facility] and provided new referral and faxed initial referral. F2F completed but still needs MD signature (likely Dr. Haywood or Dr. Negron) and copy was placed on pt chart as well for MD. SW called medicaid transport and confirmed pt has Medicaid transportation benefits and will likely need to utilize this at d/c for cabulance vs BLS transport. SW called pt's Caregiver Coordinator Danay at [facility] ([phone]) and updated her on likely d/c tomorrow pending progress and she requests call once SW receives discharge orders as she will make sure to have a caregiver arrive to assist pt after getting home on day of discharge. ELAINE faxed pt's H&P to her CHIRAG ART Leyva to review to confirm she is aware of pt's admission. Plan: SW to follow closely for [facility] review to confirm they can accept pt at d/c and determining BLS vs Cabulance at d/c and MD needs to sign F2F. SW to call Danay above at d/c so CG can be arranged to arrive for assist at d/c. KERI Louis
--- NOTE | 2021-07-08 14:10 | DIET.CONS ---
Dietary Consultation Note Admission Date: 07/06/2021 21:51 Assessment: 76 y/o F familiar to this RD. RD consulted for low BMI and poor skin perfusion. Per consult pt has local infection of the skin and subcutaneous tissue. H/o decubitus ulcer on the back. Previously she has been on Mani for her wounds and states she enjoys it. Also has been provided double protein portions and vitamin c via fruit cups. She is amenable to this. States she has been working on more protein at home as well. Reports nauseas for the last two days, which reportedly had impacted her PO. No recent wt loss per EMR records. Nutrition focused exam does indicate moderate temporal depression, hollow orbital area, slight depressed interosseoius muscle, acromion process protrudes, indicating mild to moderate loss of muscle and fat. BMI >23, not low for age. Diet recall: B: cereal with milk Sn: brownies or oreos D: spaghetti or lasagna (usually smaller portion) low pro and vitamin c intake per diet recall Ht: 157.48 cm Wt: 67.132 kg BMI: 27.1 UBW: Last BM: 07/06/21 (07/06/21 21:59) MNA: 13 Dhruv Score: 15 Diet: 07/07/21 Breakfast General (Regular) Diet Diet Modifications: double protein; fruit cup w/meals; mani 2x/day 07/09/21 00:01 NPO Diet Diet Modifications: Safety Tray needed?: No NPO Type: NPO after Midnight Nutrition Percent Meal Consumed 50% 07/07/21 18:00 Percent Meal Consumed 50% 07/07/21 13:53 Labs: RBC 3.88 X10^6/uL (4.0-5.2) L 07/08/21 04:27 Hgb 11.8 g/dL (12.0-16.0) L 07/08/21 04:27 Hct 36.0 % (36-46) 07/08/21 04:27 Creatinine 0.46 mg/dL (0.52-1.04) L 07/08/21 04:27 NT-Pro-B Natriuret Pep 3760 pg/mL (<450) H 07/08/21 04:27 Nutrition Diagnosis: Chronic moderate PCM r/t increased protein needs d/t wounds and limited pro intake aeb diet recall of limited protein foods, skin ulcers, physical signs of moderate muscle and fat loss. Interventions: mani BID (currently kitchen is out but should be receiving this week), double pro portions and vitamin c via fruit cup with meals. EER: 80g PRO (1.2g/kg per moderate malnutrition and wounds) Monitoring/Evaluations: RD f/u 3-5 days monitoring PO, intervention tolerance and wt Electronically Signed by: Lenka Iyer 07/08/21 14:10 Clinical Dietitian [address] [address]
--- NOTE | 2021-07-08 18:30 | PC.NURSE ---
Day shift - I called Dr. Haywood to inform him that the Pt has irregular heart rate going between 140's and 110 on Tele. Pt is asymptomatic. Pt has Bp of 87/48. He said monitor the Pt and give scheduled metoprolol at 2100 if systolic >90.
[2021-07-08] MEDS: ATORVASTATIN 20 MG TABLET 40 MG PO (20:17)
[2021-07-08] MEDS: METOPROLOL IR 25 MG TABLET PO (20:17)
--- NOTE | 2021-07-08 23:54 | PC.NURSE ---
Patient is alert and oriented. Breath sounds with fine crackles in right LL; RA sat is 98%. HR irregular with rate of 104bpm; telemetry reading was afib RVR w/BBB. BP slightly improved over last noc at 102/77 so able to administer po Metoprolol. Denied nausea. BT present and was incontinent of small, firm stool. Is incontinent of urine. Is able to assist in repositioning but does not do so on her own so is now being repositioned q2h. Kwesi lift is used for transfer out of bed to chair. Periarea/groins/upper thighs with excoriation and barrier cream applied. Is wearing bilateral calf SCD's. Weakness of bilateral LE related to MS/RA. Is aware she will be NPO after 0000. Fall risk score is high and bed alarm is activated.
[2021-07-09] VITALS (12 sets, daily range): BP systolic 82–141; BP diastolic 43–73; PULSE 56–114; RESP 15–22; TEMP 35.7–36.8; O2SAT 91–97
[2021-07-09] MEDS: NYSTATIN POWDER 15GM 1 APPLIC TOP (04:33)
[2021-07-09 05:47] LABS: Add Manual Diff / Slide Review NO; Basophils Absolute Auto 100 /uL (0-100); Basophils Percent Auto 1.3 % (0-2); Eosinophils Absolute Auto 100 /uL (0-450); Eosinophils Percent Auto 1.6 % (2-4); Hematocrit 34.5 % (36-46); Hemoglobin 11.6 g/dL (12.0-16.0); Lymphocytes Absolute Auto 2700 /uL (1100-4500); Mean Corpuscular HGB Conc 33.8 % (30-36); Mean Corpuscular Hemoglobin 31.2 PG (26-34); Mean Corpuscular Volume 92.3 fL (80-100); Monocytes Absolute Auto 400 /uL (0-900); Neutrophils Absolute Auto 5500 /uL (1500-7000); Neutrophils Percent Auto 62.1 % (50-75); Platelet Count 199 X10^3/uL (150-400); Red Blood Cell Count 3.73 X10^6/uL (4.0-5.2); Red Cell Distribution Width 14.9 % (11.6-14.8); White Blood Cell Count 8.9 X10^3/uL (4.5-11.0)
[2021-07-09 05:52] LABS: BUN Creatinine Ratio 36.6 (6-22); Blood Urea Nitrogen 15 mg/dL (7-17); Calcium 8.7 mg/dL (8.4-10.2); Carbon Dioxide 29 mmol/L (22-32); Chloride 106 mmol/L (98-107); Estimated Glomerular Filt Rate > 60.0 mL/min (>60); Glucose 108 mg/dL (80-110); HEMOLYSIS < 15 (0-50); Magnesium 2.1 mg/dL (1.6-2.3); Sodium 141 mmol/L (137-145)
[2021-07-09 06:25] LABS: Thyroid Stimulating Hormone 0.313 uIU/mL (0.47-4.68)
--- NOTE | 2021-07-09 08:09 | P.PN_ITS ---
Subjective Subjective Date Patient Seen: 07/09/21 Time Patient Seen: 08:09 Interval history: Patient did well overnight no complaints. She is watching TV. Patient is NPO for procedure scheduled later this afternoon. Transfer paperwork was signed. Patient was mildly hypotensive overnight still tachycardic still in atrial fibrillation. She is anticoagulated with Eliquis now. Discussed the procedure again with patient this morning. She says she does not really understand but she knows she has an irregular heart rhythm. She is relatively asymptomatic. She does agree for the procedure. Exam Vital Signs (past 8 hours): - 07/09/21 00:19 07/09/21 04:36 Temperature 97.8 F 97.5 F L Pulse Rate 85 104 H Respiratory Rate 17 17 Blood Pressure 92/56 L 92/45 L Pulse Oximetry 97 95 Oxygen Delivery Method Room Air Oxygen Flow Rate 0 Narrative Exam Narrative: Gen.: Frail elderly bedridden 76-year-old female HEENT: Pupils equal round and reactive or mucosa is moist neck is supple Cardio: S1-S2 irregular rate and rhythm systolic murmur present Respiratory: Lungs show diminished breath sounds at bases. No wheezes or crackles normal respiratory effort Abdomen: Soft nontender Extremities: Warm dry perfused Objective Labs Result Diagrams: 07/13/21 05:20 07/13/21 05:20 Labs: Laboratory Results - last 24 hr 07/09/21 07/09/21 07/09/21 05:14 05:14 05:14 WBC 8.9 RBC 3.73 L Hgb 11.6 L Hct 34.5 L MCV 92.3 MCH 31.2 MCHC 33.8 RDW 14.9 H Plt Count 199 Neut % (Auto) 62.1 Lymph % (Auto) 31.0 [place] % (Auto) 4.0 Eos % (Auto) 1.6 L Baso % (Auto) 1.3 Neut # (Auto) 5500 Lymph # (Auto) 2700 [place] # (Auto) 400 Eos # (Auto) 100 Baso # (Auto) 100 Sodium 141 Potassium 4.0 Chloride 106 Carbon Dioxide 29 BUN 15 Creatinine 0.41 L Estimated GFR > 60.0 BUN/Creatinine Ratio 36.6 H Glucose 108 Calcium 8.7 Magnesium 2.1 TSH 0.313 L [facility] Medical History (Updated 07/07/21 @ 09:08 by Rodo Holloway MD) Hyperlipidemia Rheumatoid arthritis Social History household members: none Smoking Status: Never smoker alcohol intake: never Assessment & Plan Assessment and plan (1) Atrial fibrillation with RVR: Status: Acute Plan Atrial fibrillation with rapid ventricular response:? Discussed care with Cardiology yesterday. Recommended GORDON with cardioversion. Discussed with patient yesterday and today. Patient will be transferred to [facility] and returned after procedure. Patient has remained tachycardic and hypotensive despite digoxin and metoprolol. If cardioversion is successful. Patient then can be discharged later today from the hospital. Acute systolic heart failure.? Patient has a reduced ejection fraction on her echocardiogram.? She also has some valvular heart disease.? Patient appears to be euvolemic at this time. Will hold off on diuresis. She does have an elevated BNP. She does not tolerate a beta-edilson or LIAN-inhibitor because of her hypotension. Rheumatoid arthritis.? Patient has a longstanding history of rheumatoid a rthritis. Continue with current immune suppressant medication. Moderate malnutrition.? Per provided nutritional consultation unfortunately patient is NPO for procedure. Multiple sclerosis.? Chronic and stable.? Currently not on any medication.? Patient is bed ridden at home goes from bed to chair. She has caregivers who come in regularly to take care of her. DVT prophylaxis patient with SCDs and on Eliquis Disposition plan.? Gordon today with cardioversion. If successful. Patient can be discharged home from the hospital. Time Spent With Patient Critical Care time: I spent a total of [] minutes of critical care time on this patient's care today; this time is exclusive of procedural time. Quality VTE Deep Vein Thrombosis/Pulmonary Embolism Present on Admission: No
--- NOTE | 2021-07-09 09:17 | CM.DPC ---
Addendum entered by Amparo Dias R.N. 07/09/21 15:52: Patient will not be discharging home today. She will return from [facility] this pm, and will then be on an Amniodorone drip. Called Danay at [facility] and updated her asking her to call her caregiver, Ariela, and have her not go to the home this pm. Let Danay know that this DC Highway Worker will update her tomorrow. Called Urmila at [facility] and let her know that patient is not discharging today. Did complete BLS form for tomorrow. Patient may not be able to go until tomorrow pm, if am caregiver is not secured secondary to her not being ready until later in the day for DC. Original Note: DCP Cont: Patient is to be discharging to have a procedure at [facility], and is likely to return here today for discharge. Dr. Haywood already left, and did not sign face to face for home health. Sima, certified ophthalmic surgical assistant, will email form to Dr. Haywood for signature. Called Danay at [facility] and asked her to go ahead and plan on sending out a caregiver this pm. She indicated that she can plan on sending out Ariela at 5:00pm. Let Danay know that this account planner will call her back with an update regarding discharge. P: Patient is going over to [facility] for a procedure, and is supposed to come back here for discharge. Will update [facility], and will need face to face signed, and transport will need to be set up. Amparo Dias RN/Circular [employer]
[2021-07-09] MEDS: METOPROLOL IR 25 MG TABLET PO (09:33)
[2021-07-09] MEDS: SODIUM CHLORIDE 0.9% FLUSH 10 ML IV (09:33)
[2021-07-09] MEDS: APIXABAN 5 MG TABLET PO ×2 (09:33→20:32)
--- NOTE | 2021-07-09 11:50 | PC.NURSE ---
Addendum entered by Chema Ramírez R.N. 07/09/21 11:56: Called [facility] nurse at 1155 and gave report on Pt Original Note: Day Shift - Pt left unit via stretcher w/BLS staff at 1145 to go to [facility] for ablation procedure. Pt will return to unit when procedure is complete.
[2021-07-09] MEDS: AMIODARONE 150 MG/100 ML PIGGYBACK 600 MG IV (17:27)
[2021-07-09] MEDS: AMIODARONE 360 MG/200 ML PIGGYBACK 33.33 MG IV (17:43)
--- NOTE | 2021-07-09 17:48 | PC.NURSE ---
Pt arrived via EMS transport. Alert and oriented. threat monitoring analyst demonstrates SR rate 67. Pt denies pain. Reports NPO all day. BG check 96. Pt set up for meal. SCD's on. Brief dry, waffle cushion in place. Call light in reach.
[2021-07-09] MEDS: HYDROXYCHLOROQUINE 200 MG TABLET PO (20:31)
[2021-07-09] MEDS: ATORVASTATIN 20 MG TABLET 40 MG PO (20:31)
[2021-07-09] MEDS: DOCUSATE 100 MG CAPSULE PO (20:31)
[2021-07-09] MEDS: predniSONE 5 MG TABLET PO (20:32)
[2021-07-09] MEDS: ACETAMINOPHEN 325 MG TABLET 650 MG PO (20:32)
--- NOTE | 2021-07-09 20:34 | P.TELICUCN_ITS ---
History of Present Illness Consult details Chief complaint: Tachycardia :: This patient was seen via real time interactive two-way audiovisual telecommunication. Narrative: 76 year old female with history of atrial fibrillation, RA, multiple sclerosis, and hyperlipdemia admitted for generalized weakness. On admission she was found to be in A fib w/ RVR and started on amiodarone infusion. She underwent successful cardioversion today wiht HR ~60s. Currently on amiodarone infusion 1mg/min per protcol and eliquis. Echo: 1) Mildly increased left ventricular thickness (concentric) with moderately to severely reduced systolic function (EF 30-35%). 2) Mildly enlarged right ventricle with mildly reduced function. 3) The left atrium is severely dilated. 4) Calcific mitral valve with mild stenosis (mean gradient 5mmHg) and mild mitral regurgitation. 5) There is moderate to severe aortic stenosis (valve area 1cm2, mean gradient 24mmHg, severity ratio 0.34). 6) There is mild to moderate tricuspid regurgitation. 7) The right ventricular systolic pressure is estimated to be at least 38 mmHg based on an estimated right atrial pressure of 3 mm Hg. 8) Atrial fibrillation with rapid ventricular rates present during the study (rates 113-156bpm). 9) No prior Echo available for comparison. CXR: Cardiomegaly, moderate vascular congestion bibasilar pleural effusions with atelectasis and infiltrate. [facility] Medical History (Updated 07/07/21 @ 09:08 by Rodo Holloway MD) Hyperlipidemia Rheumatoid arthritis Social History household members: none Smoking Status: Never smoker alcohol intake: never Current Medications Current Medications Medications: Home Medications ascorbic acid (vitamin C) 500 mg tablet 1,000 mg PO DAILY #0 02/10/16 [History Confirmed 07/06/21] folic acid 1 mg tablet 1 mg PO DAILY #0 02/10/16 [History Confirmed 07/06/21] lorazepam 0.5 mg tablet (Ativan) 0.5 mg PO HS #90 tab 02/10/16 [History Confirmed 07/06/21] multivitamin (Multiple Vitamins) 1 tab PO DAILY #0 02/10/16 [History Confirmed 07/06/21] mupirocin 2 % topical ointment 1 applictn TOP BID #30 gram 04/06/18 [Rx Confirmed 07/06/21] incontinence supplies #150 each 05/05/18 [Rx Confirmed 07/07/21] wheelchair #1 each 07/24/18 [Rx Confirmed 07/07/21] methotrexate sodium 2.5 mg tablet 12.5 mg PO .COMPLEX #90 tab 12/10/20 [Rx Confirmed 07/06/21] atorvastatin 40 mg tablet See Rx Instructions .ROUTE .COMPLEX #90 tab 12/15/20 [Rx Confirmed 07/06/21] hydroxychloroquine 200 mg tablet (Plaquenil) 200 mg PO BID #60 tab 12/22/20 [Rx Confirmed 07/06/21] potassium chloride 10 mEq capsule,extended release See Rx Instructions .ROUTE .COMPLEX #60 cap 01/05/21 [Rx Confirmed 07/06/21] david lift #1 ea 04/14/21 [Rx Confirmed 07/07/21] prednisone 2.5 mg tablet See Rx Instructions .ROUTE .COMPLEX #90 tab 05/22/21 [Rx Confirmed 07/06/21] Visit Medications (administered) Generic Name Dose Route Start Last Admin Trade Name Coy PRN Reason Stop Dose Admin Acetaminophen 650 mg 07/07/21 12:00 07/09/21 20:32 Acetaminophen 325 Mg Tablet PO 650 mg Q6HR MÓNICA Administration Apixaban 5 mg 07/07/21 09:00 07/09/21 20:32 Apixaban 5 Mg Tablet PO 5 mg BID MÓNICA Administration Atorvastatin Calcium 40 mg 07/07/21 21:00 07/09/21 20:31 Atorvastatin 20 Mg Tablet PO 40 mg BEDTIME MÓNICA Administration Docusate Sodium 100 mg 07/07/21 09:00 07/09/21 20:31 Docusate 100 Mg Capsule PO 100 mg BID MÓNICA Administration Hydroxychloroquine Sulfate 200 mg 07/07/21 09:00 07/09/21 20:31 Hydroxychloroquine 200 Mg Tablet PO 200 mg BID MÓNICA Administration Amiodarone HCl/Dextrose 360 mg in 200 mls @ 33.333 mls/hr 07/09/21 17:00 07/09/21 17:43 Nexterone IV 07/09/21 22:59 33.333 mls/hr NOW ONE 33.33 mls/hr Administration Protocol Methotrexate 12.5 mg 07/07/21 09:00 07/07/21 16:58 Methotrexate 2.5 Mg Tablet PO 12.5 mg Tu@0900,1500 MÓNICA Administration Nystatin 1 applic 07/07/21 12:59 07/09/21 04:33 Nystatin Powder 15gm TOP 1 applic TID PRN Administration Rash Prednisone 5 mg 07/07/21 09:00 07/09/21 20:32 Prednisone 5 Mg Tablet PO 5 mg BID MÓNICA Administration Sodium Chloride 10 ml 07/07/21 21:00 07/09/21 09:33 Sodium Chloride 0.9% Flush IV 10 ml BID MÓNICA Administration Exam Vital Signs (past 8 hours): - 07/09/21 17:35 07/09/21 20:00 Temperature 98.2 F Pulse Rate 67 61 Respiratory Rate 21 Blood Pressure 93/55 L 82/43 L Pulse Oximetry 97 Oxygen Delivery Method Room Air Oxygen Flow Rate 0 Objective Labs Result Diagrams: 07/09/21 05:14 07/09/21 05:14 Labs: Laboratory Results - last 24 hr 07/09/21 07/09/21 07/09/21 05:14 05:14 05:14 WBC 8.9 RBC 3.73 L Hgb 11.6 L Hct 34.5 L MCV 92.3 MCH 31.2 MCHC 33.8 RDW 14.9 H Plt Count 199 Neut % (Auto) 62.1 Lymph % (Auto) 31.0 [place] % (Auto) 4.0 Eos % (Auto) 1.6 L Baso % (Auto) 1.3 Neut # (Auto) 5500 Lymph # (Auto) 2700 [place] # (Auto) 400 Eos # (Auto) 100 Baso # (Auto) 100 Sodium 141 Potassium 4.0 Chloride 106 Carbon Dioxide 29 BUN 15 Creatinine 0.41 L Estimated GFR > 60.0 BUN/Creatinine Ratio 36.6 H Glucose 108 Calcium 8.7 Magnesium 2.1 TSH 0.313 L Assessment & Plan Assessment & Plan narrative: # Atrial fibrillation -- s/p cardioversion and currently in SR -- On amiodarone infusion protocol -- CHADVASC score 5 -> on eliquis -- High lytes goal -- Monitor on telemetry # Hypotension -- Chronic in nature -- MAP goal > 60 -- Avoid BP meds Time Spent With Patient Critical Care time: I spent a total of [] minutes of critical care time on this patient's care today; this time is exclusive of procedural time.
[2021-07-09] MEDS: AMIODARONE 360 MG/200 ML PIGGYBACK 16.7 MG IV (23:16)
[2021-07-10] VITALS (62 sets, daily range): BP systolic 66–137; BP diastolic 6–97; PULSE 48–91; RESP 10–44; TEMP 30.9–37.1; O2SAT 89–100
[2021-07-10 05:35] LABS: Add Manual Diff / Slide Review NO; Basophils Absolute Auto 100 /uL (0-100); Basophils Percent Auto 0.6 % (0-2); Eosinophils Absolute Auto 100 /uL (0-450); Eosinophils Percent Auto 1.2 % (2-4); Hematocrit 33.9 % (36-46); Hemoglobin 11.2 g/dL (12.0-16.0); Lymphocytes Absolute Auto 1900 /uL (1100-4500); Lymphocytes Percent Auto 21.7 % (25-40); Mean Corpuscular Hemoglobin 30.8 PG (26-34); Mean Corpuscular Volume 93.5 fL (80-100); Monocytes Absolute Auto 400 /uL (0-900); Monocytes Percent Auto 4.4 % (3-14); Neutrophils Absolute Auto 6400 /uL (1500-7000); Neutrophils Percent Auto 72.1 % (50-75); Platelet Count 198 X10^3/uL (150-400); Red Blood Cell Count 3.63 X10^6/uL (4.0-5.2); White Blood Cell Count 8.8 X10^3/uL (4.5-11.0)
[2021-07-10 05:44] LABS: BUN Creatinine Ratio 29.8 (6-22); Blood Urea Nitrogen 14 mg/dL (7-17); Calcium 8.3 mg/dL (8.4-10.2); Carbon Dioxide 27 mmol/L (22-32); Chloride 104 mmol/L (98-107); Estimated Glomerular Filt Rate > 60.0 mL/min (>60); Glucose 121 mg/dL (80-110); HEMOLYSIS < 15 (0-50); Potassium 3.9 mmol/L (3.4-5.1); Sodium 137 mmol/L (137-145)
--- NOTE | 2021-07-10 07:25 | PC.NURSE ---
Shift Note-Amiodarone infusion continued per protocol throughout the night, SB/SR, BBB, PACs, and few brief runs ventricular rhythm, see strips in chart, BP stable, see vital trends, SpO2 >92% on RA, crackles bibasilar. Dr Gerard Chemical Plant Manager has consulted.
--- NOTE | 2021-07-10 07:44 | PM.PN.1 ---
Subjective Subjective Date Patient Seen: 07/10/21 Time Patient Seen: 07:45 Interval history: Patient was transferred temporarily to [facility] for transesophageal echo in preparation for cardioversion. She had both procedures and is back in sinus rhythm. As per Dr. Haywood cardiology recommended a loading dose of parental amiodarone of 900 mg followed by oral amiodarone 200 mg a day in effort to keep her in sinus rhythm given the difficulty she has had an controlling her rate in the setting of her hypotension etcetera She has also been started on Eliquis of course for stroke risk reduction Patient herself this morning says she is feeling okay. Has some achiness generally about her is blaming the ?funky ?beds. No difficulty breathing no sense of palpitations no chest pain etcetera Patient remains on sinus rhythm with mild bradycardia on her telemetry Exam Vital Signs (past 8 hours): - 07/10/21 00:00 07/10/21 01:00 07/10/21 02:00 Temperature 98.7 F Pulse Rate 58 L 59 L 60 Respiratory Rate 15 16 21 Blood Pressure 116/53 L 108/57 L 103/92 H Pulse Oximetry 93 91 94 07/10/21 03:00 07/10/21 04:00 07/10/21 05:00 Temperature 98.2 F Pulse Rate 56 L 55 L 56 L Respiratory Rate 18 19 19 Blood Pressure 105/52 L 98/53 L 99/52 L Pulse Oximetry 93 94 96 Oxygen Delivery Method Room Air Oxygen Flow Rate 0 Objective Labs Result Diagrams: 07/10/21 04:50 07/10/21 04:50 Labs: Laboratory Results - last 24 hr 07/10/21 07/10/21 04:50 04:50 WBC 8.8 RBC 3.63 L Hgb 11.2 L Hct 33.9 L MCV 93.5 MCH 30.8 MCHC 33.0 RDW 15.0 H Plt Count 198 Neut % (Auto) 72.1 Lymph % (Auto) 21.7 L [place] % (Auto) 4.4 Eos % (Auto) 1.2 L Baso % (Auto) 0.6 Neut # (Auto) 6400 Lymph # (Auto) 1900 [place] # (Auto) 400 Eos # (Auto) 100 Baso # (Auto) 100 Sodium 137 Potassium 3.9 Chloride 104 Carbon Dioxide 27 BUN 14 Creatinine 0.47 L Estimated GFR > 60.0 BUN/Creatinine Ratio 29.8 H Glucose 121 H Calcium 8.3 L [facility] Medical History (Updated 07/07/21 @ 09:08 by Rodo Holloway MD) Hyperlipidemia Rheumatoid arthritis Social History household members: none Smoking Status: Never smoker alcohol intake: never Assessment & Plan Assessment & Plan narrative: 1. Paroxysmal atrial fibrillation-patient currently receiving IV amiodarone and will complete the loading does sometime this evening. Plan to start her on oral amiodarone at that point and will need to arrange for discharge home tomorrow. She will continue on amiodarone 200 mg a day. Will get her a follow-up appointment with Cardiology as well as her PCP 2. Acute systolic base congestive heart failure-patient appears to be euvolemic has no symptoms or objective findings to suggest she has active acute congestive heart failure. No need to make any change in medication and treatment plan at this point. 3. Rheumatoid arthritis-continue patient's usual medications 4.Multiple sclerosis-stable, no change in plan 5. Disposition-patient will be returning to [facility] where she lives and has full-time caregivers. I am going to ask discharge planning to be involved in ensuring should be ready for discharge and all logistics are set for tomorrow, Tuesday morning. Note: Greater than 30minutes total time was spent on day of service, evaluating the patient on the floor, including examining the patient, discussing clinical course with clinical and nursing staff, reviewing clinical course in the computer, preparing documentation and writing orders for continued management of care, discussing status with family as appropriate, reviewing plans for the next 24 hours with both patient/family and nursing staff as appropriate. Quality VTE Deep Vein Thrombosis/Pulmonary Embolism Present on Admission: No
[2021-07-10] MEDS: predniSONE 5 MG TABLET PO (08:58)
[2021-07-10] MEDS: DOCUSATE 100 MG CAPSULE PO (08:58)
[2021-07-10] MEDS: HYDROXYCHLOROQUINE 200 MG TABLET PO (08:58)
[2021-07-10] MEDS: APIXABAN 5 MG TABLET PO (08:58)
[2021-07-10] MEDS: SODIUM CHLORIDE 0.9% FLUSH 10 ML IV ×2 (08:59→21:23)
[2021-07-10] MEDS: AMIODARONE 181 MG/100.56 ML PIGGYBACK 16.7 MG IV (11:12)
--- NOTE | 2021-07-10 11:22 | CM.DPC ---
DCP Cont: Spoke to Dr. Granado, confirmed per his note, patient should be ready for discharge tomorrow. Called Danay at [facility] and gave her an update. She did indicate that they have one caregiver for the week-end, but she will make some calls. Will also follow up with Danay again later today. Have the BLS form completed and set up for patient. Will also update [facility], and will send DC Summary upon discharge. P: DCP to continue to follow. Plan is for patient to discharge home tomorrow, will touch base again with Danay today. Amparo Dias RN/Department Store General Manager
--- NOTE | 2021-07-10 11:40 | P.TELICUPN_ITS ---
Subjective Subjective :: This patient was seen via real time interactive two-way audiovisual telecommunication. Patienton estelle friend, due to finish tomorrow. Currently stable and in no acute distress Current Medications Current Medications Medications: Home Medications ascorbic acid (vitamin C) 500 mg tablet 1,000 mg PO DAILY #0 02/10/16 [History Confirmed 07/06/21] folic acid 1 mg tablet 1 mg PO DAILY #0 02/10/16 [History Confirmed 07/06/21] lorazepam 0.5 mg tablet (Ativan) 0.5 mg PO HS #90 tab 02/10/16 [History Confirmed 07/06/21] multivitamin (Multiple Vitamins) 1 tab PO DAILY #0 02/10/16 [History Confirmed 07/06/21] mupirocin 2 % topical ointment 1 applictn TOP BID #30 gram 04/06/18 [Rx Confirmed 07/06/21] incontinence supplies #150 each 05/05/18 [Rx Confirmed 07/07/21] wheelchair #1 each 07/24/18 [Rx Confirmed 07/07/21] methotrexate sodium 2.5 mg tablet 12.5 mg PO .COMPLEX #90 tab 12/10/20 [Rx Confirmed 07/06/21] atorvastatin 40 mg tablet See Rx Instructions .ROUTE .COMPLEX #90 tab 12/15/20 [Rx Confirmed 07/06/21] hydroxychloroquine 200 mg tablet (Plaquenil) 200 mg PO BID #60 tab 12/22/20 [Rx Confirmed 07/06/21] potassium chloride 10 mEq capsule,extended release See Rx Instructions .ROUTE .COMPLEX #60 cap 01/05/21 [Rx Confirmed 07/06/21] david lift #1 ea 04/14/21 [Rx Confirmed 07/07/21] prednisone 2.5 mg tablet See Rx Instructions .ROUTE .COMPLEX #90 tab 05/22/21 [Rx Confirmed 07/06/21] Visit Medications (administered) Generic Name Dose Route Start Last Admin Trade Name Freq PRN Reason Stop Dose Admin Acetaminophen 650 mg 07/07/21 12:00 07/10/21 07:17 Acetaminophen 325 Mg Tablet PO Not Given Q6HR MÓNICA Apixaban 5 mg 07/07/21 09:00 07/10/21 08:58 Apixaban 5 Mg Tablet PO 5 mg BID MÓNICA Administration Atorvastatin Calcium 40 mg 07/07/21 21:00 07/09/21 20:31 Atorvastatin 20 Mg Tablet PO 40 mg BEDTIME MÓNICA Administration Docusate Sodium 100 mg 07/07/21 09:00 07/10/21 08:58 Docusate 100 Mg Capsule PO 100 mg BID MÓNICA Administration Hydroxychloroquine Sulfate 200 mg 07/07/21 09:00 07/10/21 08:58 Hydroxychloroquine 200 Mg Tablet PO 200 mg BID MÓNICA Administration Amiodarone HCl/Dextrose 181 mg in 100.56 mls @ 16.7 mls/hr 07/10/21 10:55 07/10/21 11:12 Nexterone IV 07/10/21 16:57 16.7 ml/hr CONT MÓNICA 16.7 mls/hr Administration Protocol Methotrexate 12.5 mg 07/07/21 09:00 07/07/21 16:58 Methotrexate 2.5 Mg Tablet PO 12.5 mg Tu@0900,1500 MÓNICA Administration Nystatin 1 applic 07/07/21 12:59 07/09/21 04:33 Nystatin Powder 15gm TOP 1 applic TID PRN Administration Rash Prednisone 5 mg 07/07/21 09:00 07/10/21 08:58 Prednisone 5 Mg Tablet PO 5 mg BID MÓNICA Administration Sodium Chloride 10 ml 07/07/21 21:00 07/10/21 08:59 Sodium Chloride 0.9% Flush IV 10 ml BID MÓNICA Administration Objective Labs Result Diagrams: 07/10/21 04:50 07/10/21 04:50 Labs: Laboratory Results - last 24 hr 07/10/21 07/10/21 04:50 04:50 WBC 8.8 RBC 3.63 L Hgb 11.2 L Hct 33.9 L MCV 93.5 MCH 30.8 MCHC 33.0 RDW 15.0 H Plt Count 198 Neut % (Auto) 72.1 Lymph % (Auto) 21.7 L [place] % (Auto) 4.4 Eos % (Auto) 1.2 L Baso % (Auto) 0.6 Neut # (Auto) 6400 Lymph # (Auto) 1900 [place] # (Auto) 400 Eos # (Auto) 100 Baso # (Auto) 100 Sodium 137 Potassium 3.9 Chloride 104 Carbon Dioxide 27 BUN 14 Creatinine 0.47 L Estimated GFR > 60.0 BUN/Creatinine Ratio 29.8 H Glucose 121 H Calcium 8.3 L Exam Vital Signs (past 8 hours): - 07/10/21 04:00 07/10/21 05:00 07/10/21 07:00 Temperature 98.2 F Pulse Rate 55 L 56 L Respiratory Rate 19 19 Blood Pressure 98/53 L 99/52 L Pulse Oximetry 94 96 97 07/10/21 08:00 07/10/21 09:00 07/10/21 09:21 Temperature 98.2 F Pulse Rate 60 83 Respiratory Rate 21 20 Blood Pressure 111/59 L 131/80 Pulse Oximetry 95 96 94 07/10/21 10:00 07/10/21 11:00 Temperature 96.9 F L Pulse Rate 73 65 Respiratory Rate 21 24 Blood Pressure 109/56 L 124/56 L Pulse Oximetry 96 93 Oxygen Delivery Method Room Air Oxygen Flow Rate 0 Quality TeleICU VTE Deep Vein Thrombosis/Pulmonary Embolism Present on Admission: No Assessment & Plan Assessment & Plan narrative: Assessment & Plan narrative: ?# Atrial fibrillation -- s/p cardioversion and currently in SR -- On amiodarone infusion protocol - transition to PO tomorrow @ 1700 -- CHADVASC score 5 -> on eliquis? -- High lytes goal -- Monitor on telemetry # Hypotension -- Chronic in nature -- MAP goal > 60 -- Avoid BP meds Time Spent With Patient Critical Care time: I spent a total of [] minutes of critical care time on this patient's care today; this time is exclusive of procedural time.
[2021-07-10] MEDS: ACETAMINOPHEN 325 MG TABLET 650 MG PO (12:05)
--- NOTE | 2021-07-10 12:14 | DI.RAD.S_ITS ---
PROCEDURE: XR CHEST 1V INDICATIONS: difficulty breathing TECHNIQUE: One view of the chest was acquired. COMPARISON: [facility], , XR CHEST 1V, 07/06/2021, 18:23. FINDINGS: Exam limited by poor patient positioning. Cardiomegaly with vascular congestion and costophrenic angle blunting are similar. IMPRESSION: Grossly stable exam, limited by technique. Dictated by: Isac Hummel M.D. on 07/10/2021 at 12:38 Approved by: Isac Hummel M.D. on 07/10/2021 at 12:39
[2021-07-10] MEDS: FUROSEMIDE 20 MG/2 ML VIAL IV (12:38)
--- NOTE | 2021-07-10 13:43 | PM.EVENT ---
Event Note Date Patient Seen: 07/10/21 Time Patient Seen: 13:43 Event Note (Rapid Response, Code, or fall): After I saw patient this morning she became much more dyspneic. Initially started with the complaint of difficulty breathing but rapidly became tachypneic and had a mild drop in her oxygen saturation. She did better with increase O2 Repeat chest x-ray shows persistence of significant pulmonary edema. No x-ray was done after admission so unknown if this improved after admission. She was given some IV Lasix and placed on BiPAP as per respiratory therapy. With this she still quite uncomfortable having a difficult time getting comfortable On exam she has maybe a few crackles I think at this point this is in part some level of anxiety related but obviously has an element of acute congestive heart failure. She will receive additional Lasix will try some low-dose lorazepam and or morphine to see if that can relieve her work of breathing to some extent. She seems to be adequately oxygenating at this time with current supplemental oxygen etcetera She remains in sinus rhythm although somewhat more tachycardic now. I do not believe that is playing a role here No other complicating factor found on her chest x-ray.
[2021-07-10] MEDS: LORazepam 2 MG/ML INJ 0.5 MG IV (13:56)
[2021-07-10] MEDS: SODIUM CHLORIDE 0.9% 250 ML IV (16:20)
[2021-07-10] MEDS: NOREPINEPHRINE BITARTRATE/D5W 4 MG/250 ML PLAST..BAG 30 MG IV (17:44)
--- NOTE | 2021-07-10 17:53 | PC.NURSE ---
VTO from Dr. Granado for Levophed to MAP of 60 r/t hypotension of 66/35 MAP 45. This loan underwriter entered order and requested pharmacy to correct dosage to reflect policy.
--- NOTE | 2021-07-10 17:56 | PC.NURSE ---
Addendum entered by Zena Castillo R.N. 07/10/21 18:52: Per Tele Folded Towel Machine Operator changed Levophed to Stu due to Hx of AFib RVR, see emar for dosage, pt tolerating well, will continue to treat and monitor as ordered Original Note: Day shift note Pt c/o difficulty breathing, rapidly became tachypneic with a drop in her O2 saturation to 87% SpO2, placed on 4L NC, improved slightly with oxygen. Informed Dr Granado of change in pt status, stat cxr ordered, called RT for consultation, recommendation for BiPap and Lasix for fluid overload, Dr Granado at bedside, new orders placed in emar. Administered lasix and 0.5mg Ativan for anxiety r/t BiPap. Pt BP began trending down (see vitals), call to Dr Granado for MAP of 49, new orders for Levophed gtt, and consult to tele vacation sales advisor. Gtt started with loading dose at 8 mcg/min resulting in new BP of 112/56 with a MAP of 77, titrated Levophed gtt down (see emar) to 5mcg/min as ordered for MAP of 60 and above. Amiodarone gtt completed, but unable to administer PO Amiodarone due to BiPap. Pt able to express that she does want to continue as a FULL code. Bed low and locked, call light within reach, with continue to treat and monitor closely.
--- NOTE | 2021-07-10 18:23 | P.TELICUIN_ITS ---
Teleintensivist Intervention Date/Time Was camera activated?: Yes Date Patient Seen: 07/10/21 Time Patient Seen: 18:24 Issue(s) Addressed Issue(s): Resp. Distress/Ventilator management and Shock/hypotension Intervention(s) :: patient with increasing SOB ealier and hypotension. I suspect this may be stunned myocardium folllwing her cardioversion and low EF. on bipap with XR noti ng vascualr congestion. Will start neosynephrine given her RVR
[2021-07-10] MEDS: PHENYLEPHRINE 20,000 MCG in DEXTROSE 5% IN WATER 250 ML 75 ML IV (18:48)
--- NOTE | 2021-07-10 20:57 | P.ICUMDRN_ITS ---
- Note: Case was discussed w bedside nurse. Pt remains on irene @50 mcg/min, SBP 100- 110's, HR 50s. Pt on eliquis for anticoagulation. Will order PT/OT eval
--- NOTE | 2021-07-10 20:57 | PM.ICURNDS ---
- Note: Case was discussed w bedside nurse. Pt remains on irene @50 mcg/min, SBP 100-110's, HR 50s. Pt on eliquis for anticoagulation. Will order PT/OT eval
--- NOTE | 2021-07-10 21:45 | PC.NURSE ---
1900 Patient pulling on BiPap Mask and occasionally moaning. Patient repositioned with HOB decreased some, to prevent forward head tilt. Patient with kyphosis. Patient with Phenylephrine at 100 mcg/min with MAP greater tgab
--- NOTE | 2021-07-10 21:48 | PC.NURSE ---
Addendum entered by Thi Castillo R.N. 07/11/21 05:57: Patient's BP remains labile and attempts to titrate Phenylephrine below 85 mcg/min unsuccessful with MAP dropping below 60. Patient states that she is doing well off of BiPap and feels breathing is back to normal. O2 at 2L and sats 98-100%. Lungs continue with coarse crackles. Patient remains in SB,BBB with rate in the 50s. Addendum entered by Thi Castillo R.N. 07/11/21 02:34: Patient assisted with repositioning and brief change. Nystatin applied to brenden groin and shanice areas after cleansing. Medicated with Morphine for difficulty leaving BiPap on and brenden LE pain. Patient's SBP 61/43 (48) after repositioning to L side. Patient's Phenylephrine titrated up to 85 mcg/min and patient repositioned to back to reach MAP greater than or equal to 65. Current BP 97/50 (69), HR 54, SB, BBB. Patient was incontinent of moderate amount of urine. Patient requested that Bipap be removed. O2 @ 4L placed. O2 sats 100% and O2 reduced to 3L. Addendum entered by Thi Castillo R.N. 07/11/21 00:47: Patient alert and oriented x3. Remains on BiPap 16/6, FiO2 0.30. O2 sats 95-100%. Continuing with slow titration of Phenylephrine to maintain MAP at 65 with dose currently at 75mcg/min. Remains in SB,BBB, with rate 48-51. Patient denies pain, but states she would like to have BiPap off. Patient reminded of rationale for wearing BiPap. Patient agreeable, and returning to sleep. Original Note: 1899 Assumed care of patient with Phenylephrine 100 mcg/min. MAP > 70. Patient remains SB, HR 58. Patient attempting to pull Bipap off. RT in for some adjustment of mask and patient repositioned slightly in bed. 2104 Phenylehprine titrated down to 95 mcg min; 2129 MAP > 70 Phenylephrine titrated down to 90 mcg/min. Patient bladder scanned for 315 ml. Patient awake and oriented x3. Declined repositioning and states she doesn't need to use bedpan at this time. Patient has been sleeping since administration of Ativan in the afternoon. Denies pain.
[2021-07-10] MEDS: PHENYLEPHRINE 20,000 MCG in DEXTROSE 5% IN WATER 250 ML 63.75 ML IV (22:40)
[2021-07-11] VITALS (53 sets, daily range): BP systolic 66–114; BP diastolic 36–61; PULSE 48–70; RESP 13–42; TEMP 36.1–37; O2SAT 75–100
[2021-07-11] MEDS: MORPHINE 2 MG/ML INJ 1 MG IV (01:18)
[2021-07-11] MEDS: SODIUM CHLORIDE 0.9% FLUSH 10 ML IV (01:20)
[2021-07-11] MEDS: NYSTATIN POWDER 15GM 1 APPLIC TOP ×2 (01:50→20:35)
[2021-07-11] MEDS: PHENYLEPHRINE 20,000 MCG in DEXTROSE 5% IN WATER 250 ML 63.75 ML IV (02:59)
[2021-07-11 05:24] LABS: BUN Creatinine Ratio 35.4 (6-22); Blood Urea Nitrogen 17 mg/dL (7-17); Calcium 8.6 mg/dL (8.4-10.2); Carbon Dioxide 29 mmol/L (22-32); Chloride 102 mmol/L (98-107); Estimated Glomerular Filt Rate > 60.0 mL/min (>60); Glucose 111 mg/dL (80-110); HEMOLYSIS < 15 (0-50); Potassium 4.1 mmol/L (3.4-5.1); Sodium 135 mmol/L (137-145)
[2021-07-11 05:33] LABS: NT-proBNP (BNP-Adult 18+) 7770 pg/mL (<450)
[2021-07-11] MEDS: PHENYLEPHRINE 20,000 MCG in DEXTROSE 5% IN WATER 250 ML 60 ML IV ×2 (07:45→22:59)
--- NOTE | 2021-07-11 08:14 | CM.DPC ---
DCP Cont: Spoke to Danay at [facility] and gave her update, patient may not yet be ready for discharge today, she was put on BIPAP yesterday pm, she is currently off of it, but not stable. Will call her again in the morning and give her an update. It is noted that P.t and O.T. was ordered. Will continue to update [facility]. P: DCP to continue to follow. Patient should be able to go home when she is deemed medically stable on [facility], and with her private caregivers. Amparo Dias RN/Furniture Decals Inspector
[2021-07-11] MEDS: APIXABAN 5 MG TABLET PO ×2 (08:35→20:41)
[2021-07-11] MEDS: DOCUSATE 100 MG CAPSULE PO ×2 (08:35→20:41)
[2021-07-11] MEDS: HYDROXYCHLOROQUINE 200 MG TABLET PO ×2 (08:35→20:41)
[2021-07-11] MEDS: predniSONE 5 MG TABLET PO ×2 (08:35→20:41)
--- NOTE | 2021-07-11 09:28 | PM.PN.EICU ---
Subjective Subjective :: This patient was seen via real time interactive two-way audiovisual telecommunication. Started on neosynephrine for hypotension. Titrate down to 75 from 85 mcg. Current BP 88/52 and HR 50-60s. Went back on 2 liters NC this morning due to worsening shortness of breath. CXR 07/10 reviewed -> bilateral cephalization. Per RN report, there is bibasilar crackles on auscultation. Current Medications Current Medications Medications: Home Medications ascorbic acid (vitamin C) 500 mg tablet 1,000 mg PO DAILY #0 02/10/16 [History Confirmed 07/06/21] folic acid 1 mg tablet 1 mg PO DAILY #0 02/10/16 [History Confirmed 07/06/21] lorazepam 0.5 mg tablet (Ativan) 0.5 mg PO HS #90 tab 02/10/16 [History Confirmed 07/06/21] multivitamin (Multiple Vitamins) 1 tab PO DAILY #0 02/10/16 [History Confirmed 07/06/21] mupirocin 2 % topical ointment 1 applictn TOP BID #30 gram 04/06/18 [Rx Confirmed 07/06/21] incontinence supplies #150 each 05/05/18 [Rx Confirmed 07/07/21] wheelchair #1 each 07/24/18 [Rx Confirmed 07/07/21] methotrexate sodium 2.5 mg tablet 12.5 mg PO .COMPLEX #90 tab 12/10/20 [Rx Confirmed 07/06/21] atorvastatin 40 mg tablet See Rx Instructions .ROUTE .COMPLEX #90 tab 12/15/20 [Rx Confirmed 07/06/21] hydroxychloroquine 200 mg tablet (Plaquenil) 200 mg PO BID #60 tab 12/22/20 [Rx Confirmed 07/06/21] potassium chloride 10 mEq capsule,extended release See Rx Instructions .ROUTE .COMPLEX #60 cap 01/05/21 [Rx Confirmed 07/06/21] david lift #1 ea 04/14/21 [Rx Confirmed 07/07/21] prednisone 2.5 mg tablet See Rx Instructions .ROUTE .COMPLEX #90 tab 05/22/21 [Rx Confirmed 07/06/21] Visit Medications (administered) Generic Name Dose Route Start Last Admin Trade Name Freq PRN Reason Stop Dose Admin Acetaminophen 650 mg 07/07/21 12:00 07/11/21 06:15 Acetaminophen 325 Mg Tablet PO Not Given Q6HR MÓNICA Amiodarone HCl 200 mg 07/10/21 17:00 07/10/21 18:55 Amiodarone 200 Mg Tablet PO Not Given 1700 MÓNICA Apixaban 5 mg 07/07/21 09:00 07/11/21 08:35 Apixaban 5 Mg Tablet PO 5 mg BID MÓNICA Administration Atorvastatin Calcium 40 mg 07/07/21 21:00 07/10/21 22:11 Atorvastatin 20 Mg Tablet PO Not Given BEDTIME MÓNICA Docusate Sodium 100 mg 07/07/21 09:00 07/11/21 08:35 Docusate 100 Mg Capsule PO 100 mg BID MÓNICA Administration Hydroxychloroquine Sulfate 200 mg 07/07/21 09:00 07/11/21 08:35 Hydroxychloroquine 200 Mg Tablet PO 200 mg BID MÓNICA Administration NOREPINEPHRINE BITARTRATE/D5W 4 mg in 250 mls @ 30 mls/hr 07/10/21 17:32 07/10/21 18:42 Levophed IV 0 mcg/min TITRATE MÓNICA 0 mls/hr Titration Protocol 8 MCG/MIN Phenylephrine HCl 20,000 mcg/ 250 mls @ 75 mls/hr 07/10/21 18:16 07/11/21 08:40 Dextrose IV 75 mcg/min TITRATE MÓNICA 56.25 mls/hr Titration Protocol 100 MCG/MIN Lorazepam 0.5 mg 07/10/21 13:42 07/10/21 13:56 Lorazepam 2 Mg/Ml Inj IV 0.5 mg Q4HR PRN Administration Anxiety Methotrexate 12.5 mg 07/07/21 09:00 07/07/21 16:58 Methotrexate 2.5 Mg Tablet PO 12.5 mg Tu@0900,1500 MÓNICA Administration Morphine Sulfate 1 mg 07/10/21 13:42 07/11/21 01:18 Morphine 2 Mg/Ml Inj IV 1 mg Q2HR PRN Administration Dyspnea Nystatin 1 applic 07/07/21 12:59 07/11/21 01:50 Nystatin Powder 15gm TOP 1 applic TID PRN Administration Rash Prednisone 5 mg 07/07/21 09:00 07/11/21 08:35 Prednisone 5 Mg Tablet PO 5 mg BID MÓNICA Administration Sodium Chloride 10 ml 07/07/21 21:00 07/11/21 01:20 Sodium Chloride 0.9% Flush IV 10 ml BID MÓNICA Administration Objective Labs Result Diagrams: 07/10/21 04:50 07/11/21 04:58 Labs: Laboratory Results - last 24 hr 07/11/21 04:58 Sodium 135 L Potassium 4.1 Chloride 102 Carbon Dioxide 29 BUN 17 Creatinine 0.48 L Estimated GFR > 60.0 BUN/Creatinine Ratio 35.4 H Glucose 111 H Calcium 8.6 NT-Pro-B Natriuret Pep 7770 H Exam Vital Signs (past 8 hours): - 07/11/21 02:00 07/11/21 03:00 07/11/21 04:00 Temperature 97.6 F Pulse Rate 52 L 55 L 56 L Respiratory Rate 19 17 18 Blood Pressure 83/49 L 87/50 L 96/49 L Pulse Oximetry 100 100 99 07/11/21 05:00 07/11/21 06:00 07/11/21 08:00 Temperature 98 F Pulse Rate 54 L 57 L 61 Respiratory Rate 16 20 28 H Blood Pressure 114/54 L 103/61 105/48 L Pulse Oximetry 99 100 94 07/11/21 09:00 07/11/21 09:15 Temperature Pulse Rate 57 L Respiratory Rate 24 Blood Pressure 88/52 L Pulse Oximetry 100 96 Fraction of Inspired Oxygen 100 Oxygen Delivery Method Nasal Cannula Oxygen Flow Rate 2 Quality TeleICU VTE Deep Vein Thrombosis/Pulmonary Embolism Present on Admission: No Assessment & Plan Assessment & Plan narrative: # A fib -- s/p cardioversion -- Remains in SR -- Cont amiodarone 200 mg daily -- Cont gentle diuresis to avoid LA dilation -- On eliquis -- High lytes goal # Shock -- On neosynephrine 75 mcg -- No overt source of infectious identified -- Check procalcitonin and if elevated then will initiate sepsis workup -- Start midodrine 10 mg TID -- On neosynephrine to maintain MAP goal > 60 # Acute on chronic decompensated HFrEF -- Biventricular failure noted on TTE -- Cont gentle diuresis to seek net negative fluid balance -- Strict I/O -- Daily BMP -- Monitor UOP -- NOt a candidate for BB or Lior-I/ARB due to shock D/w RN. Time Spent With Patient Critical Care time: I spent a total of [] minutes of critical care time on this patient's care today; this time is exclusive of procedural time.
[2021-07-11 10:10] LABS: Procalcitonin 1.32 ng/mL (<0.5)
[2021-07-11] MEDS: FUROSEMIDE 20 MG/2 ML VIAL IV (10:13)
--- NOTE | 2021-07-11 11:13 | OT.IPNOTE ---
Discharge OT eval orders as pt at baseline for ADL needs at this time per nursing. Pt only able to eat and do her grooming after set-up.
--- NOTE | 2021-07-11 11:33 | P.PN_ITS ---
Subjective Subjective Date Patient Seen: 07/11/21 Time Patient Seen: 11:00 Interval history: Pt doing okay this morning still feeling weak still needing some pressors to keep MAP around 60 however reports she certainly does feel better compared to yesterday. Exam Vital Signs (past 8 hours): - 07/11/21 04:00 07/11/21 05:00 07/11/21 06:00 Temperature 97.6 F Pulse Rate 56 L 54 L 57 L Respiratory Rate 18 16 20 Blood Pressure 96/49 L 114/54 L 103/61 Pulse Oximetry 99 99 100 07/11/21 08:00 07/11/21 09:00 07/11/21 09:15 Temperature 98 F Pulse Rate 61 57 L Respiratory Rate 28 H 24 Blood Pressure 105/48 L 88/52 L Pulse Oximetry 94 100 96 07/11/21 09:54 07/11/21 09:55 07/11/21 09:58 Temperature Pulse Rate 58 L 70 Respiratory Rate 22 27 H Blood Pressure 105/57 L Pulse Oximetry 100 97 97 07/11/21 10:30 07/11/21 11:00 Temperature Pulse Rate 62 60 Respiratory Rate 23 19 Blood Pressure 98/53 L 82/47 L Pulse Oximetry 98 98 Fraction of Inspired Oxygen 100 Oxygen Delivery Method Nasal Cannula Oxygen Flow Rate 2 Narrative Exam Narrative: elderly woman laying in bed speaking on the telephone with her mother Const General: cooperative, comfortable and No in distress Nutritional Appearance: well nourished [facility] Head: normal to inspection Neck Neck: normal visual inspection, full ROM and trachea midline Resp Other: mild bibasilar crackles Cardio Rate: regular rate Rhythm: regular rhythm Heart Sounds: S1 normal and S2 normal GI Auscultation: normal bowel sounds Skin General: no rashes or lesions noted Neuro General: patient alert, patient awake, patient oriented x3, CN's II-XI intact bilaterally and unable to assess gait Extrem General: capillary refill normal and no pedal edema Psych Appearance: grossly normal Mental Status: mental status grossly normal Speech and Movement: speech and movement normal Objective Labs Result Diagrams: 07/10/21 04:50 07/11/21 04:58 Labs: Laboratory Results - last 24 hr 07/11/21 07/11/21 04:48 04:58 Sodium 135 L Potassium 4.1 Chloride 102 Carbon Dioxide 29 BUN 17 Creatinine 0.48 L Estimated GFR > 60.0 BUN/Creatinine Ratio 35.4 H Glucose 111 H Calcium 8.6 NT-Pro-B Natriuret Pep 7770 H Procalcitonin 1.32 H PFSH Medical History (Updated 07/07/21 @ 09:08 by Rodo Holloway MD) Hyperlipidemia Rheumatoid arthritis Social History household members: none Smoking Status: Never smoker alcohol intake: never Assessment & Plan Assessment & Plan narrative: #Paroxysmal atrial fibrillation s/p cardioversion now in NSR. Continue PO amiodarone this was held yesterday d/t hypotension Amiodarone 200 mg a day.? Will get her a follow-up appointment with Cardiology as well as her PCP #Shock #acute on chronic HFrEF stable on pressor, alert and conversant continue Appreciate tele ICU input agree with gentle diuresis as tolerated encourage PO intake #Rheumatoid arthritis stable continue home meds #Multiple sclerosis stable, no change in plan Dispo: pending improvement, patient will be returning to [facility] where she lives and has full-time caregivers.? Code: pool servicer Spent With Patient Critical Care time: I spent a total of [] minutes of critical care time on this patient's care today; this time is exclusive of procedural time. Quality VTE Deep Vein Thrombosis/Pulmonary Embolism Present on Admission: No
--- NOTE | 2021-07-11 12:07 | PT-IP ANOTE ---
Received PT eval order today. PT eval order also received last 07/07/21 and order was d/c'd. Talked with nurse and pt has not change in mobility status and has low BP. Informed nurse that pt is bed bound at home and is a david lift transfer and per pt, she does not want her caregiver to transfer her with the david lift and she just stays in bed. informed nurse that PT will d/c order again and agreed. informed disease case manager rn.
[2021-07-11] MEDS: PHENYLEPHRINE 20,000 MCG in DEXTROSE 5% IN WATER 250 ML 52.5 ML IV (12:30)
[2021-07-11] MEDS: MIDODRINE HCL 5 MG TABLET 10 MG PO ×2 (12:57→17:21)
[2021-07-11] MEDS: AMIODARONE 200 MG TABLET PO (17:21)
[2021-07-11] MEDS: PHENYLEPHRINE 20,000 MCG in DEXTROSE 5% IN WATER 250 ML 48.75 ML IV (17:50)
--- NOTE | 2021-07-11 18:00 | PC.NURSE ---
Day Shift Note Patient on phenylephrine gtt, was at 85 mcg/min at start of shift, weaned down to 65 mcg/min. Reviewed BP goals with Dr. Dee and Dr. Gerard, goal is MAP 60 or above. BP 80-90s/40s. Pt denies any lightheadedness or dizziness, alert and oriented x3. SB in the upper 50s with BBB on monitor, PO amiodarone to continue. Pt received dose of lasix with very large incontinent outputs x2. Skin cleansed and barrier cream/nystatin powder applied. Nicol-area Denies pain. Call light within reach, using appropriately to make needs known. Bed alarm on for safety.
[2021-07-11] MEDS: ATORVASTATIN 20 MG TABLET 40 MG PO (20:41)
--- NOTE | 2021-07-11 21:32 | PM.ICURNDS ---
- Date Patient Seen: 07/11/21 Time Patient Seen: 20:00 :: This patient was seen via real time interactive two-way audiovisual telecommunication. Note: Chart reviewed. Admitted w/ rapid AF; now s/p cardioversion; also w/ hypotension. Procalcitonin was ordered today and did return elevated. However, WBC, pCXR and urine appear benign. TSH is mildly low. Midodrine was also started today. Also with HFrEF exacerbation, biventricular failure and moderate/severe . Currently on phenylephrine 75 mcg/min. INTERVENTIONS: 1) Check free T4 2) Will hold off empiric antimicrobials RECOMMENDATIONS: 1) May need TAVR evaluation 2) Would address goals of care if this has not already been done
[2021-07-12] VITALS (73 sets, daily range): BP systolic 69–151; BP diastolic 34–82; PULSE 43–62; RESP 15–37; TEMP 36.6–37.2; O2SAT 84–100
[2021-07-12] MEDS: PHENYLEPHRINE 20,000 MCG in DEXTROSE 5% IN WATER 250 ML 56.25 ML IV ×2 (03:26→08:10)
[2021-07-12 05:46] LABS: Hematocrit 34.2 % (36-46); Hemoglobin 11.4 g/dL (12.0-16.0); Mean Corpuscular HGB Conc 33.3 % (30-36); Mean Corpuscular Hemoglobin 31.1 PG (26-34); Mean Corpuscular Volume 93.4 fL (80-100); Platelet Count 222 X10^3/uL (150-400); Red Blood Cell Count 3.66 X10^6/uL (4.0-5.2); Red Cell Distribution Width 15.3 % (11.6-14.8); White Blood Cell Count 9.8 X10^3/uL (4.5-11.0)
[2021-07-12 06:10] LABS: Free T4, Direct Thyroxine 1.62 ng/dL (0.78-2.19)
[2021-07-12 06:11] LABS: BUN Creatinine Ratio 23.4 (6-22); Blood Urea Nitrogen 11 mg/dL (7-17); Calcium 8.4 mg/dL (8.4-10.2); Carbon Dioxide 34 mmol/L (22-32); Chloride 99 mmol/L (98-107); Estimated Glomerular Filt Rate > 60.0 mL/min (>60); Glucose 115 mg/dL (80-110); HEMOLYSIS < 15 (0-50); Potassium 4.1 mmol/L (3.4-5.1); Sodium 136 mmol/L (137-145)
[2021-07-12] MEDS: ACETAMINOPHEN 325 MG TABLET 650 MG PO ×3 (06:14→23:23)
[2021-07-12] MEDS: MIDODRINE HCL 5 MG TABLET 10 MG PO ×3 (06:14→17:50)
[2021-07-12] MEDS: DOCUSATE 100 MG CAPSULE PO ×2 (08:38→21:01)
[2021-07-12] MEDS: APIXABAN 5 MG TABLET PO ×2 (08:38→21:01)
[2021-07-12] MEDS: HYDROXYCHLOROQUINE 200 MG TABLET PO ×2 (08:38→21:01)
[2021-07-12] MEDS: SODIUM CHLORIDE 0.9% FLUSH 10 ML IV ×2 (08:38→21:02)
[2021-07-12] MEDS: predniSONE 5 MG TABLET PO (08:38)
--- NOTE | 2021-07-12 10:43 | PM.PN.EICU ---
Subjective Subjective :: This patient was seen via real time interactive two-way audiovisual telecommunication. Current Medications Current Medications Medications: Home Medications ascorbic acid (vitamin C) 500 mg tablet 1,000 mg PO DAILY #0 02/10/16 [History Confirmed 07/06/21] folic acid 1 mg tablet 1 mg PO DAILY #0 02/10/16 [History Confirmed 07/06/21] lorazepam 0.5 mg tablet (Ativan) 0.5 mg PO HS #90 tab 02/10/16 [History Confirmed 07/06/21] multivitamin (Multiple Vitamins) 1 tab PO DAILY #0 02/10/16 [History Confirmed 07/06/21] mupirocin 2 % topical ointment 1 applictn TOP BID #30 gram 04/06/18 [Rx Confirmed 07/06/21] incontinence supplies #150 each 05/05/18 [Rx Confirmed 07/07/21] wheelchair #1 each 07/24/18 [Rx Confirmed 07/07/21] methotrexate sodium 2.5 mg tablet 12.5 mg PO .COMPLEX #90 tab 12/10/20 [Rx Confirmed 07/06/21] atorvastatin 40 mg tablet See Rx Instructions .ROUTE .COMPLEX #90 tab 12/15/20 [Rx Confirmed 07/06/21] hydroxychloroquine 200 mg tablet (Plaquenil) 200 mg PO BID #60 tab 12/22/20 [Rx Confirmed 07/06/21] potassium chloride 10 mEq capsule,extended release See Rx Instructions .ROUTE .COMPLEX #60 cap 01/05/21 [Rx Confirmed 07/06/21] david lift #1 ea 04/14/21 [Rx Confirmed 07/07/21] prednisone 2.5 mg tablet See Rx Instructions .ROUTE .COMPLEX #90 tab 05/22/21 [Rx Confirmed 07/06/21] Visit Medications (administered) Generic Name Dose Route Start Last Admin Trade Name Freq PRN Reason Stop Dose Admin Acetaminophen 650 mg 07/07/21 12:00 07/12/21 08:38 Acetaminophen 325 Mg Tablet PO 650 mg Q6HR MÓNICA Administration Amiodarone HCl 200 mg 07/10/21 17:00 07/11/21 17:21 Amiodarone 200 Mg Tablet PO 200 mg 1700 MÓNICA Administration Apixaban 5 mg 07/07/21 09:00 07/12/21 08:38 Apixaban 5 Mg Tablet PO 5 mg BID MÓNICA Administration Atorvastatin Calcium 40 mg 07/07/21 21:00 07/11/21 20:41 Atorvastatin 20 Mg Tablet PO 40 mg BEDTIME MÓNICA Administration Docusate Sodium 100 mg 07/07/21 09:00 07/12/21 08:38 Docusate 100 Mg Capsule PO 100 mg BID MÓNICA Administration Hydroxychloroquine Sulfate 200 mg 07/07/21 09:00 07/12/21 08:38 Hydroxychloroquine 200 Mg Tablet PO 200 mg BID MÓNICA Administration NOREPINEPHRINE BITARTRATE/D5W 4 mg in 250 mls @ 30 mls/hr 07/10/21 17:32 07/10/21 18:42 Levophed IV 0 mcg/min TITRATE MÓNICA 0 mls/hr Titration Protocol 8 MCG/MIN Phenylephrine HCl 20,000 mcg/ 250 mls @ 75 mls/hr 07/10/21 18:16 07/12/21 09:07 Dextrose IV 80 mcg/min TITRATE MÓNICA 60 mls/hr Titration Protocol 100 MCG/MIN Lorazepam 0.5 mg 07/10/21 13:42 07/10/21 13:56 Lorazepam 2 Mg/Ml Inj IV 0.5 mg Q4HR PRN Administration Anxiety Methotrexate 12.5 mg 07/07/21 09:00 07/07/21 16:58 Methotrexate 2.5 Mg Tablet PO 12.5 mg Tu@0900,1500 MÓNICA Administration Midodrine 10 mg 07/11/21 12:00 07/12/21 06:14 Midodrine Hcl 5 Mg Tablet PO 10 mg 0600,1200,1800 MÓNICA Administration Morphine Sulfate 1 mg 07/10/21 13:42 07/11/21 01:18 Morphine 2 Mg/Ml Inj IV 1 mg Q2HR PRN Administration Dyspnea Nystatin 1 applic 07/07/21 12:59 07/11/21 20:35 Nystatin Powder 15gm TOP 1 applic TID PRN Administration Rash Prednisone 5 mg 07/07/21 09:00 07/12/21 08:38 Prednisone 5 Mg Tablet PO 5 mg BID MÓNICA Administration Sodium Chloride 10 ml 07/07/21 21:00 07/12/21 08:38 Sodium Chloride 0.9% Flush IV 10 ml BID MÓNICA Administration Objective Labs Result Diagrams: 07/12/21 04:54 07/12/21 04:54 Labs: Laboratory Results - last 24 hr 07/12/21 07/12/21 07/12/21 04:54 04:54 04:54 WBC 9.8 RBC 3.66 L Hgb 11.4 L Hct 34.2 L MCV 93.4 MCH 31.1 MCHC 33.3 RDW 15.3 H Plt Count 222 Sodium 136 L Potassium 4.1 Chloride 99 Carbon Dioxide 34 H BUN 11 Creatinine 0.47 L Estimated GFR > 60.0 BUN/Creatinine Ratio 23.4 H Glucose 115 H Calcium 8.4 Free T4 1.62 Exam Vital Signs (past 8 hours): - 07/12/21 03:00 07/12/21 04:00 07/12/21 05:00 Temperature 97.8 F Pulse Rate 43 L 45 L 47 L Respiratory Rate 15 18 21 Blood Pressure 86/49 L 83/52 L 95/44 L Pulse Oximetry 100 97 100 07/12/21 06:00 07/12/21 06:01 07/12/21 06:15 Temperature Pulse Rate 49 L 49 L 48 L Respiratory Rate 19 33 H 21 Blood Pressure 80/47 L 80/47 L 72/47 L Pulse Oximetry 100 100 100 07/12/21 06:16 07/12/21 06:19 07/12/21 06:27 Temperature Pulse Rate 48 L 52 L 50 L Respiratory Rate 28 H 26 H 22 Blood Pressure 73/42 L 79/47 L 76/40 L Pulse Oximetry 100 98 97 07/12/21 06:31 07/12/21 06:33 07/12/21 06:35 Temperature Pulse Rate 49 L 48 L 49 L Respiratory Rate 28 H 24 20 Blood Pressure 69/34 L 77/38 L 75/40 L Pulse Oximetry 96 100 97 07/12/21 06:40 07/12/21 06:45 07/12/21 06:50 Temperature Pulse Rate 47 L 48 L 48 L Respiratory Rate 20 17 17 Blood Pressure 82/45 L 90/55 L 84/48 L Pulse Oximetry 94 93 92 07/12/21 06:56 07/12/21 07:00 07/12/21 07:05 Temperature Pulse Rate 49 L 49 L 48 L Respiratory Rate 21 21 17 Blood Pressure 89/48 L 91/47 L 90/49 L Pulse Oximetry 92 95 93 07/12/21 07:11 07/12/21 07:15 07/12/21 07:20 Temperature Pulse Rate 49 L 49 L 49 L Respiratory Rate 18 18 18 Blood Pressure 84/51 L 92/54 L 98/53 L Pulse Oximetry 94 93 91 07/12/21 07:25 07/12/21 07:30 07/12/21 08:00 Temperature Pulse Rate 49 L 50 L 51 L Respiratory Rate 21 18 21 Blood Pressure 99/52 L 81/51 L Pulse Oximetry 92 89 L 94 07/12/21 08:01 07/12/21 08:02 07/12/21 08:14 Temperature Pulse Rate 52 L 51 L Respiratory Rate 27 H 23 Blood Pressure 76/41 L 84/47 L Pulse Oximetry 94 95 96 07/12/21 08:31 07/12/21 09:00 07/12/21 09:01 Temperature Pulse Rate 49 L 53 L 52 L Respiratory Rate 21 23 26 H Blood Pressure 90/53 L 75/43 L Pulse Oximetry 94 93 95 07/12/21 09:02 07/12/21 09:30 07/12/21 10:00 Temperature Pulse Rate 52 L 51 L 48 L Respiratory Rate 20 24 28 H Blood Pressure 72/44 L 75/48 L Pulse Oximetry 95 94 95 07/12/21 10:01 07/12/21 10:30 Temperature Pulse Rate 49 L 50 L Respiratory Rate 23 20 Blood Pressure 97/50 L 102/56 L Pulse Oximetry 94 95 Fraction of Inspired Oxygen 100 Oxygen Delivery Method Room Air Oxygen Flow Rate 0 Quality TeleICU VTE Deep Vein Thrombosis/Pulmonary Embolism Present on Admission: No Assessment & Plan Assessment & Plan narrative: # A fib? -- s/p cardioversion -- Remains in SR -- Cont amiodarone 200 mg daily -- lasix 20mg bid x doses -- On eliquis # Shock -- On neosynephrine 75 mcg -- On midodrine 10 mg TID -- On neosynephrine to maintain MAP goal > 60 -- Picc line placement # Acute on chronic decompensated HFrEF -- Biventricular failure noted on TTE -- Cont gentle diuresis to seek net negative fluid balance -- Strict I/O -- Daily BMP -- Monitor UOP -- NOt a candidate for BB or Lior-I/ARB due to shock D/w RN. Time Spent With Patient Critical Care time: I spent a total of [30] minutes of critical care time on this patient's care today; this time is exclusive of procedural time.
[2021-07-12] MEDS: FUROSEMIDE 20 MG/2 ML VIAL IV ×2 (11:14→21:02)
[2021-07-12] MEDS: PHENYLEPHRINE 20,000 MCG in DEXTROSE 5% IN WATER 250 ML 52.5 ML IV (12:50)
--- NOTE | 2021-07-12 12:57 | P.PN_ITS ---
Subjective Subjective Date Patient Seen: 07/12/21 Time Patient Seen: 10:30 Interval history: Doing ok today but still not able to come off levophed without hypotension. receiving midodrine. comfortable. Exam Vital Signs (past 8 hours): - 07/12/21 05:00 07/12/21 06:00 07/12/21 06:01 Pulse Rate 47 L 49 L 49 L Respiratory Rate 21 19 33 H Blood Pressure 95/44 L 80/47 L 80/47 L Pulse Oximetry 100 100 100 07/12/21 06:15 07/12/21 06:16 07/12/21 06:19 Pulse Rate 48 L 48 L 52 L Respiratory Rate 21 28 H 26 H Blood Pressure 72/47 L 73/42 L 79/47 L Pulse Oximetry 100 100 98 07/12/21 06:27 07/12/21 06:31 07/12/21 06:33 Pulse Rate 50 L 49 L 48 L Respiratory Rate 22 28 H 24 Blood Pressure 76/40 L 69/34 L 77/38 L Pulse Oximetry 97 96 100 07/12/21 06:35 07/12/21 06:40 07/12/21 06:45 Pulse Rate 49 L 47 L 48 L Respiratory Rate 20 20 17 Blood Pressure 75/40 L 82/45 L 90/55 L Pulse Oximetry 97 94 93 07/12/21 06:50 07/12/21 06:56 07/12/21 07:00 Pulse Rate 48 L 49 L 49 L Respiratory Rate 17 21 21 Blood Pressure 84/48 L 89/48 L 91/47 L Pulse Oximetry 92 92 95 07/12/21 07:05 07/12/21 07:11 07/12/21 07:15 Pulse Rate 48 L 49 L 49 L Respiratory Rate 17 18 18 Blood Pressure 90/49 L 84/51 L 92/54 L Pulse Oximetry 93 94 93 07/12/21 07:20 07/12/21 07:25 07/12/21 07:30 Pulse Rate 49 L 49 L 50 L Respiratory Rate 18 21 18 Blood Pressure 98/53 L 99/52 L 81/51 L Pulse Oximetry 91 92 89 L 07/12/21 08:00 07/12/21 08:01 07/12/21 08:02 Pulse Rate 51 L 52 L 51 L Respiratory Rate 21 27 H 23 Blood Pressure 76/41 L 84/47 L Pulse Oximetry 94 94 95 07/12/21 08:14 07/12/21 08:31 07/12/21 09:00 Pulse Rate 49 L 53 L Respiratory Rate 21 23 Blood Pressure 90/53 L Pulse Oximetry 96 94 93 07/12/21 09:01 07/12/21 09:02 07/12/21 09:30 Pulse Rate 52 L 52 L 51 L Respiratory Rate 26 H 20 24 Blood Pressure 75/43 L 72/44 L 75/48 L Pulse Oximetry 95 95 94 07/12/21 10:00 07/12/21 10:01 07/12/21 10:30 Pulse Rate 48 L 49 L 50 L Respiratory Rate 28 H 23 20 Blood Pressure 97/50 L 102/56 L Pulse Oximetry 95 94 95 07/12/21 11:00 07/12/21 12:00 Pulse Rate 52 L 52 L Respiratory Rate 25 H 18 Blood Pressure 112/58 L 106/59 L Pulse Oximetry 94 91 Fraction of Inspired Oxygen 100 Oxygen Delivery Method Room Air Oxygen Flow Rate 0 Narrative Exam Narrative: laying in bed watching tv Const General: cooperative and comfortable HENMT Head: normal to inspection Resp Other: generally clear to auscultation some mild bibasilar crackles Cardio Other: regular rate, 2+ systolic ejection squeak GI Other: soft nontender nondistended active bowel sounds Neuro General: patient alert, patient awake and patient oriented x3 Psych Appearance: grossly normal and well kempt Objective Labs Result Diagrams: 07/12/21 04:54 07/12/21 04:54 Labs: Laboratory Results - last 24 hr 07/12/21 07/12/21 07/12/21 04:54 04:54 04:54 WBC 9.8 RBC 3.66 L Hgb 11.4 L Hct 34.2 L MCV 93.4 MCH 31.1 MCHC 33.3 RDW 15.3 H Plt Count 222 Sodium 136 L Potassium 4.1 Chloride 99 Carbon Dioxide 34 H BUN 11 Creatinine 0.47 L Estimated GFR > 60.0 BUN/Creatinine Ratio 23.4 H Glucose 115 H Calcium 8.4 Free T4 1.62 PFSH Medical History (Updated 07/07/21 @ 09:08 by Rodo Holloway MD) Hyperlipidemia Rheumatoid arthritis Social History household members: none Smoking Status: Never smoker alcohol intake: never Assessment & Plan Assessment & Plan narrative: #Paroxysmal atrial fibrillation s/p cardioversion now in NSR. Continue PO amiodarone when BP improves; will get her a follow-up appointment with Cardiology as well as her PCP #aortic stenosis moderate Aortic valve open cross section is right at 1 cm^2 right on threshold for considering addressing keep an eye on this #Shock/hypotension #acute on chronic HFrEF still requiring one pressor, alert and conversant continue try to wean as toelrated Appreciate tele ICU input agree with gentle diuresis as tolerated encourage PO intake #Rheumatoid arthritis stable continue home meds #Multiple sclerosis stable, no change in plan Dispo: pending improvement ability to come off pressors, patient will be retur [facility] to [facility] where she lives and has full-time caregivers.? Code: full PCP: Migdalia Time Spent With Patient Critical Care time: I spent a total of [] minutes of critical care time on this patient's care today; this time is exclusive of procedural time. Quality VTE Deep Vein Thrombosis/Pulmonary Embolism Present on Admission: No
--- NOTE | 2021-07-12 15:04 | CM.DPC ---
DCP Cont: Patient not yet ready for discharge, is still medically unstable with heart rate. Called and left a message with Danay at [facility] that caregiver today would not be needed. Will need to update her tomorrow as well. P: DCP to continue to follow. Plan is home with private caregivers and [facility], when patient is deemed medically stable. Amparo Dias RN/Director Of Nursing
--- NOTE | 2021-07-12 17:01 | DI.RAD.S_ITS ---
PROCEDURE: XR CHEST 1V INDICATIONS: confirm PICC location TECHNIQUE: One view of the chest was acquired. COMPARISON: [facility], , XR CHEST 1V, 07/10/2021, 12:14. FINDINGS: Surgical changes and devices: A right-sided PICC line is seen. The tip is obscured, yet is believed to overlie the inferior aspect of the superior vena cava. Lungs and pleura: Low lung volumes are noted. This causes a crowded appearance to the lung markings and limits evaluation. Abnormal interstitial prominence is seen, which is worse than on the prior examination. There is blunting of the costophrenic angles. No large pneumothorax is seen. Mediastinum: Mediastinal contours appear normal. Heart size is moderately enlarged. Bones and chest wall: No suspicious bony lesions. Age-appropriate bony degenerative changes are seen. Overlying soft tissues appear unremarkable. IMPRESSION: Right-sided PICC line, with the tip not well seen. Attention should be paid to this finding on any future follow-up studies. Cardiomegaly with worsening interstitial prominence and small bilateral pleural effusions. CHF is suspected. Dictated by: Arik Tyson M.D. on 07/12/2021 at 16:54 Approved by: Arik Tyson M.D. on 07/12/2021 at 16:55
[2021-07-12] MEDS: PHENYLEPHRINE 20,000 MCG in DEXTROSE 5% IN WATER 250 ML 45 ML IV (17:50)
[2021-07-12] MEDS: AMIODARONE 200 MG TABLET PO (17:50)
--- NOTE | 2021-07-12 20:18 | PM.ICURNDS ---
- :: This patient was seen via real time interactive two-way audiovisual telecommunication. Note: Completed ICU multidisciplinary rounds. Patient is currently on neosynephrine 50 mcg. Switch prednisone to stress dose steroids. Will titrate neosynephrine to maintain MAP goal > 60. D/w RN.
[2021-07-12] MEDS: CEFEPIME 1 GM in SODIUM CHLORIDE 0.9% 100 ML 200 ML IV (20:39)
[2021-07-12] MEDS: ATORVASTATIN 20 MG TABLET 40 MG PO (21:01)
[2021-07-12] MEDS: LINEZOLID 600 MG TABLET PO (21:01)
[2021-07-12 21:42] LABS: Appearance Urine UA CLEAR; Bilirubin Urine UA NEGATIVE (NEGATIVE); Color Urine UA YELLOW; Glucose Urine UA NEGATIVE (Negative); Ketones Urine UA NEGATIVE (NEGATIVE); Leukocyte Esterase Urine UA 3+ (NEGATIVE); Nitrite Urine UA POSITIVE (Negative); Occult Blood Urine UA 2+ (Negative); Protein Urine UA NEGATIVE (Negative); Urobilinogen Urine UA 0.2 E.U./dL (0.2)
[2021-07-12 21:52] LABS: Bacteria Urine Many (>30); Culture Indicated Urine Specimen Cultured; RBC Urine 1-5/HPF (0-5/HPF); Squamous Epithelial Cell Urine 0-1 /HPF (0-5/HPF); WBC Urine 30-100/HPF (0-5/HPF)
[2021-07-12] MEDS: HYDROCORTISONE 100 MG/2 ML VIAL 50 MG IV (23:24)
[2021-07-13] VITALS (34 sets, daily range): BP systolic 75–141; BP diastolic 37–69; PULSE 45–64; RESP 14–28; TEMP 36.2–36.6; O2SAT 92–100
--- NOTE | 2021-07-13 00:14 | PC.NURSE ---
pt is alert and oriented x 4 Weaning phenylepherine drip slowly to keep MAP >60mmhg. Urine sent for culture, blood cultures drawn prior to 1st dose of abx. PureWick to perineal area connected to low cont suction. Pt tolerating well.
[2021-07-13] MEDS: ACETAMINOPHEN 325 MG TABLET 650 MG PO (05:20)
[2021-07-13] MEDS: MIDODRINE HCL 5 MG TABLET 10 MG PO ×3 (05:21→18:00)
[2021-07-13] MEDS: HYDROCORTISONE 100 MG/2 ML VIAL 50 MG IV ×4 (05:21→23:31)
[2021-07-13 05:32] LABS: Hematocrit 35.4 % (36-46); Hemoglobin 11.7 g/dL (12.0-16.0); Mean Corpuscular HGB Conc 33.1 % (30-36); Mean Corpuscular Hemoglobin 30.7 PG (26-34); Mean Corpuscular Volume 92.9 fL (80-100); Platelet Count 196 X10^3/uL (150-400); Red Blood Cell Count 3.82 X10^6/uL (4.0-5.2); Red Cell Distribution Width 14.9 % (11.6-14.8)
[2021-07-13 05:44] LABS: BUN Creatinine Ratio 21.3 (6-22); Blood Urea Nitrogen 10 mg/dL (7-17); Calcium 8.5 mg/dL (8.4-10.2); Carbon Dioxide 34 mmol/L (22-32); Chloride 101 mmol/L (98-107); Estimated Glomerular Filt Rate > 60.0 mL/min (>60); Glucose 134 mg/dL (80-110); HEMOLYSIS < 15 (0-50); Potassium 3.7 mmol/L (3.4-5.1); Sodium 141 mmol/L (137-145)
--- NOTE | 2021-07-13 07:47 | DI.RAD.S_ITS ---
PROCEDURE: XR CHEST 1V INDICATIONS: Heart failure TECHNIQUE: One view of the chest was acquired. COMPARISON: [facility], CT, CT CHEST W CON, 11/03/2020, 16:56. [facility], CR, XR CHEST 1V, 07/12/2021, 17:00. [facility], CR, XR CHEST 1V, 11/09/2020, 18:11. [facility], CR, XR CHEST 1V, 07/06/2021, 18:23. [facility], CR, XR CHEST 1V, 07/10/2021, 12:14. FINDINGS: Surgical changes and devices: There is a right PICC with the tip in the area of SVC. Lungs and pleura: Bilateral interstitial and airspace infiltrate. Small pleural effusions are suspected bilaterally. No pneumothorax. Mediastinum: Mediastinal contours appear normal. Heart size is mildly increased. Dbdbarmi-[id number]-sized hiatal hernia. Bones and chest wall: No suspicious bony lesions. Overlying soft tissues appear unremarkable. IMPRESSION: 1. Congestive heart failure, not significantly changed from the last exam. 2. Cannot rule out superimposed pneumonia. 3. Hiatal hernia. Dictated by: Emma May M.D. on 07/13/2021 at 8:21 Approved by: Emma May M.D. on 07/13/2021 at 8:24
--- NOTE | 2021-07-13 08:07 | PM.PN.1 ---
Subjective Subjective Date Patient Seen: 07/13/21 Time Patient Seen: 08:20 Interval history: Patient seen and evaluated this morning. In bed. She says she is feeling fine. Like to change positions. Limited amount of oral intake. Blood pressure stable. Pulse is a little bit low. No further episodes of atrial fib. On stress dose of steroids and IV antibiotics. Mildly elevated procalcitonin. Urinalysis shows infection. Blood pressure stable decrease in amount of pressors. Reviewed care with nursing staff this morning. Feels like making some progress and some improvement. Exam Vital Signs (past 8 hours): - 07/13/21 00:31 07/13/21 01:00 07/13/21 01:01 Temperature Pulse Rate 47 L 51 L 50 L Respiratory Rate 20 17 21 Blood Pressure 99/53 L 119/58 L 119/58 L Pulse Oximetry 96 92 93 07/13/21 01:30 07/13/21 02:00 07/13/21 02:31 Temperature Pulse Rate 53 L 51 L 46 L Respiratory Rate 18 18 14 Blood Pressure 128/60 116/56 L 79/37 L Pulse Oximetry 93 97 97 07/13/21 02:33 07/13/21 02:36 07/13/21 02:41 Temperature Pulse Rate 46 L 46 L 45 L Respiratory Rate 15 15 18 Blood Pressure 75/41 L 77/41 L 94/55 L Pulse Oximetry 98 98 99 07/13/21 03:00 07/13/21 03:01 07/13/21 03:28 Temperature Pulse Rate 47 L 47 L 53 L Respiratory Rate 18 17 25 H Blood Pressure 88/50 L 88/50 L 94/45 L Pulse Oximetry 99 99 98 07/13/21 03:30 07/13/21 04:00 07/13/21 04:01 Temperature 97.1 F L Pulse Rate 51 L 46 L 46 L Respiratory Rate 27 H 21 17 Blood Pressure 96/50 L 101/49 L 101/49 L Pulse Oximetry 98 99 100 07/13/21 04:31 07/13/21 05:00 07/13/21 05:01 Temperature Pulse Rate 46 L 46 L 46 L Respiratory Rate 17 18 18 Blood Pressure 97/46 L 103/48 L Pulse Oximetry 98 95 97 07/13/21 06:00 Temperature Pulse Rate 45 L Respiratory Rate 25 H Blood Pressure 131/61 Pulse Oximetry 100 Fraction of Inspired Oxygen 100 Oxygen Delivery Method Nasal Cannula Oxygen Flow Rate 2 Narrative Exam Narrative: Gen.: Alert good historian resting comfortably in bed HEENT: Pupils equal round and reactive or mucosa is moist neck is supple Cardio: S1-S2 regular rate and rhythm systolic murmur present heart sounds distant Respiratory: Lungs show decreased breath sounds at lung bases. Normal respiratory effort Abdomen: [Soft nontender no rebound or guarding no liver spleen enlargement no appreciable hernias] Extremities: Generalized weakness. Warm dry perfused Objective Labs Result Diagrams: 07/13/21 05:20 07/13/21 05:20 Labs: Laboratory Results - last 24 hr 07/12/21 07/13/21 07/13/21 21:20 05:20 05:20 WBC 9.0 RBC 3.82 L Hgb 11.7 L Hct 35.4 L MCV 92.9 MCH 30.7 MCHC 33.1 RDW 14.9 H Plt Count 196 Sodium 141 Potassium 3.7 Chloride 101 Carbon Dioxide 34 H BUN 10 Creatinine 0.47 L Estimated GFR > 60.0 BUN/Creatinine Ratio 21.3 Glucose 134 H Calcium 8.5 Urine Color Yellow Urine Appearance Clear Urine pH 6.0 Ur Specific [place] 1.010 Urine Protein Negative Urine Glucose (UA) Negative Urine Ketones Negative Urine Occult Blood 2+ H Urine Nitrate Positive H Urine Bilirubin Negative Urine Urobilinogen 0.2 Ur Leukocyte Esterase 3+ H Urine RBC 1-5/hpf Urine WBC 30-100/hpf H Ur Squamous Epith Cells 0-1 /hpf Urine Bacteria Many (>30) H Ur Culture Indicated? Specimen cultured [facility] Medical History (Updated 07/07/21 @ 09:08 by Rodo Holloway MD) Hyperlipidemia Rheumatoid arthritis Social History household members: none Smoking Status: Never smoker alcohol intake: never Assessment & Plan Assessment and plan (1) Atrial fibrillation with RVR: Status: Acute Plan Atrial fibrillation with rapid ventricular response with hypotension. Patient underwent cardioversion at [facility] on . Patient initially on IV amiodarone now on oral amiodarone. Patient in normal sinus rhythm. Continue with amiodarone 200 mg daily. Pulses a little bit low. Blood pressure is improved. Will have Cardiology come by and re-evaluate patient today. Shock with hypotension. Question infection related versus adrenal insufficiency. Has responded to pressors mid her own stress dose steroids and IV antibiotic. Blood pressure is improving. Continue to wean pressors at this point. Continue with oral med her own. On IV antibiotics. Urinalysis shows symptoms of infection. Procalcitonin elevated mildly. White blood cell count normal. Will continue with culture workup including blood cultures urine culture and adjust antibiotics appropriately. Acute on chronic heart failure with reduced ejection fraction. Some diuresis with Lasix. Improved. Continue to monitor electrolytes and urine output. Beta-edilson LIAN-inhibitor on hold because of hypotension. Valvular heart disease with aortic valve moderate to severe stenosis. Needs re-evaluation with Cardiology if patient is a candidate for TAVR. Need ongoing discussion with patient and patient's primary care provider about long-term care plans goals etc.. Rheumatoid arthritis continue with home medications Multiple sclerosis. Chronic and stable. Disposition plan. Wean off pressors. Follow cultures to adjust antibiotics appropriately continue with stress dose steroids. Have Cardiology re-evaluate patient. Time Spent With Patient Critical Care time: I spent a total of [] minutes of critical care time on this patient's care today; this time is exclusive of procedural time. Quality VTE Deep Vein Thrombosis/Pulmonary Embolism Present on Admission: No
[2021-07-13] MEDS: SODIUM CHLORIDE 0.9% FLUSH 10 ML IV ×2 (08:43→21:00)
[2021-07-13] MEDS: CEFEPIME 1 GM in SODIUM CHLORIDE 0.9% 100 ML 200 ML IV ×2 (08:43→20:05)
[2021-07-13] MEDS: DOCUSATE 100 MG CAPSULE PO ×2 (09:11→21:00)
[2021-07-13] MEDS: APIXABAN 5 MG TABLET PO ×2 (09:11→21:00)
[2021-07-13] MEDS: HYDROXYCHLOROQUINE 200 MG TABLET PO ×2 (09:11→21:00)
[2021-07-13] MEDS: LINEZOLID 600 MG TABLET PO ×2 (09:11→21:00)
--- NOTE | 2021-07-13 09:48 | P.TELICUPN_ITS ---
Subjective Subjective :: This patient was seen via real time interactive two-way audiovisual telecommunication. Current Medications Current Medications Medications: Home Medications ascorbic acid (vitamin C) 500 mg tablet 1,000 mg PO DAILY #0 02/10/16 [History Confirmed 07/06/21] folic acid 1 mg tablet 1 mg PO DAILY #0 02/10/16 [History Confirmed 07/06/21] lorazepam 0.5 mg tablet (Ativan) 0.5 mg PO HS #90 tab 02/10/16 [History Confirmed 07/06/21] multivitamin (Multiple Vitamins) 1 tab PO DAILY #0 02/10/16 [History Confirmed 07/06/21] mupirocin 2 % topical ointment 1 applictn TOP BID #30 gram 04/06/18 [Rx Confirmed 07/06/21] incontinence supplies #150 each 05/05/18 [Rx Confirmed 07/07/21] wheelchair #1 each 07/24/18 [Rx Confirmed 07/07/21] methotrexate sodium 2.5 mg tablet 12.5 mg PO .COMPLEX #90 tab 12/10/20 [Rx Confirmed 07/06/21] atorvastatin 40 mg tablet See Rx Instructions .ROUTE .COMPLEX #90 tab 12/15/20 [Rx Confirmed 07/06/21] hydroxychloroquine 200 mg tablet (Plaquenil) 200 mg PO BID #60 tab 12/22/20 [Rx Confirmed 07/06/21] potassium chloride 10 mEq capsule,extended release See Rx Instructions .ROUTE .COMPLEX #60 cap 01/05/21 [Rx Confirmed 07/06/21] david lift #1 ea 04/14/21 [Rx Confirmed 07/07/21] prednisone 2.5 mg tablet See Rx Instructions .ROUTE .COMPLEX #90 tab 05/22/21 [Rx Confirmed 07/06/21] Visit Medications (administered) Generic Name Dose Route Start Last Admin Trade Name Freq PRN Reason Stop Dose Admin Acetaminophen 650 mg 07/07/21 12:00 07/13/21 05:20 Acetaminophen 325 Mg Tablet PO 650 mg Q6HR MÓNICA Administration Amiodarone HCl 200 mg 07/12/21 18:00 07/12/21 17:50 Amiodarone 200 Mg Tablet PO 200 mg 1700 MÓNICA Administration Apixaban 5 mg 07/07/21 09:00 07/13/21 09:11 Apixaban 5 Mg Tablet PO 5 mg BID MÓNICA Administration Atorvastatin Calcium 40 mg 07/07/21 21:00 07/12/21 21:01 Atorvastatin 20 Mg Tablet PO 40 mg BEDTIME MÓNICA Administration Docusate Sodium 100 mg 07/07/21 09:00 07/13/21 09:11 Docusate 100 Mg Capsule PO 100 mg BID MÓNICA Administration Hydrocortisone 50 mg 07/13/21 00:00 07/13/21 05:21 Hydrocortisone 100 Mg/2 Ml Vial IV 50 mg Q6HR MÓNICA Administration Hydroxychloroquine Sulfate 200 mg 07/07/21 09:00 07/13/21 09:11 Hydroxychloroquine 200 Mg Tablet PO 200 mg BID MÓNICA Administration NOREPINEPHRINE BITARTRATE/D5W 4 mg in 250 mls @ 30 mls/hr 07/10/21 17:32 07/10/21 18:42 Levophed IV 0 mcg/min TITRATE MÓNICA 0 mls/hr Titration Protocol 8 MCG/MIN Phenylephrine HCl 20,000 mcg/ 250 mls @ 75 mls/hr 07/10/21 18:16 07/13/21 08:49 Dextrose IV Infused TITRATE MÓNICA Titration Protocol 100 MCG/MIN Cefepime HCl 1 gm/ Sodium 100 mls @ 200 mls/hr 07/12/21 20:30 07/13/21 09:42 Chloride IV Infused Q12H MÓNICA Infusion Linezolid 600 mg 07/12/21 21:00 07/13/21 09:11 Linezolid 600 Mg Tablet PO 600 mg BID MÓNICA Administration Lorazepam 0.5 mg 07/10/21 13:42 07/10/21 13:56 Lorazepam 2 Mg/Ml Inj IV 0.5 mg Q4HR PRN Administration Anxiety Methotrexate 12.5 mg 07/07/21 09:00 07/07/21 16:58 Methotrexate 2.5 Mg Tablet PO 12.5 mg Tu@0900,1500 MÓNICA Administration Midodrine 10 mg 07/11/21 12:00 07/13/21 05:21 Midodrine Hcl 5 Mg Tablet PO 10 mg 0600,1200,1800 MÓNICA Administration Morphine Sulfate 1 mg 07/10/21 13:42 07/11/21 01:18 Morphine 2 Mg/Ml Inj IV 1 mg Q2HR PRN Administration Dyspnea Nystatin 1 applic 07/07/21 12:59 07/11/21 20:35 Nystatin Powder 15gm TOP 1 applic TID PRN Administration Rash Sodium Chloride 10 ml 07/07/21 21:00 07/13/21 08:43 Sodium Chloride 0.9% Flush IV 10 ml BID MÓNICA Administration Objective Labs Result Diagrams: 07/13/21 05:20 07/13/21 05:20 Labs: Laboratory Results - last 24 hr 07/12/21 07/13/21 07/13/21 21:20 05:20 05:20 WBC 9.0 RBC 3.82 L Hgb 11.7 L Hct 35.4 L MCV 92.9 MCH 30.7 MCHC 33.1 RDW 14.9 H Plt Count 196 Sodium 141 Potassium 3.7 Chloride 101 Carbon Dioxide 34 H BUN 10 Creatinine 0.47 L Estimated GFR > 60.0 BUN/Creatinine Ratio 21.3 Glucose 134 H Calcium 8.5 Urine Color Yellow Urine Appearance Clear Urine pH 6.0 Ur Specific [place] 1.010 Urine Protein Negative Urine Glucose (UA) Negative Urine Ketones Negative Urine Occult Blood 2+ H Urine Nitrate Positive H Urine Bilirubin Negative Urine Urobilinogen 0.2 Ur Leukocyte Esterase 3+ H Urine RBC 1-5/hpf Urine WBC 30-100/hpf H Ur Squamous Epith Cells 0-1 /hpf Urine Bacteria Many (>30) H Ur Culture Indicated? Specimen cultured Exam Vital Signs (past 8 hours): - 07/13/21 02:00 07/13/21 02:31 07/13/21 02:33 Temperature Pulse Rate 51 L 46 L 46 L Respiratory Rate 18 14 15 Blood Pressure 116/56 L 79/37 L 75/41 L Pulse Oximetry 97 97 98 07/13/21 02:36 07/13/21 02:41 07/13/21 03:00 Temperature Pulse Rate 46 L 45 L 47 L Respiratory Rate 15 18 18 Blood Pressure 77/41 L 94/55 L 88/50 L Pulse Oximetry 98 99 99 07/13/21 03:01 07/13/21 03:28 07/13/21 03:30 Temperature Pulse Rate 47 L 53 L 51 L Respiratory Rate 17 25 H 27 H Blood Pressure 88/50 L 94/45 L 96/50 L Pulse Oximetry 99 98 98 07/13/21 04:00 07/13/21 04:01 07/13/21 04:31 Temperature 97.1 F L Pulse Rate 46 L 46 L 46 L Respiratory Rate 21 17 17 Blood Pressure 101/49 L 101/49 L 97/46 L Pulse Oximetry 99 100 98 07/13/21 05:00 07/13/21 05:01 07/13/21 06:00 Temperature Pulse Rate 46 L 46 L 45 L Respiratory Rate 18 18 25 H Blood Pressure 103/48 L 131/61 Pulse Oximetry 95 97 100 Fraction of Inspired Oxygen 100 Oxygen Delivery Method Nasal Cannula Oxygen Flow Rate 2 Quality TeleICU VTE Deep Vein Thrombosis/Pulmonary Embolism Present on Admission: No Assessment & Plan Assessment & Plan narrative: Assessment & Plan narrative: # A fib? -- s/p cardioversion -- Remains in SR -- Cont amiodarone 200 mg daily -- lasix 20mg bid x doses -- On eliquis # Shock likey cardiac and/or adrenal insufficiency , R/o sepsis -- On neosynephrine at 5 mcg/min -- On midodrine 10 mg TID -- Continue IV hydrocrotison, wean off -- F/U sepsis work up , continue empiric AB for now -- On neosynephrine to maintain MAP goal > 60 -- Picc line placement # Acute on chronic decompensated HFrEF -- Biventricular failure noted on TTE -- Cont gentle diuresis to seek net negative fluid balance, re eval the dose for in am -- Strict I/O -- Daily BMP -- Monitor UOP -- NOt a candidate for BB or Lior-I/ARB due to shock D/w RN. Time Spent With Patient Critical Care time: I spent a total of [30] minutes of critical care time on this patient's care today; this time is exclusive of procedural time.
[2021-07-13] MEDS: FUROSEMIDE 20 MG/2 ML VIAL IV ×2 (11:16→17:33)
[2021-07-13] MEDS: ONDANSETRON 4 MG ODT SL (11:18)
[2021-07-13 14:42] LABS: Acinetobacter baumannii Not Detected (Not Detect); Candida albicans Not Detected (Not Detect); Candida glabrata Not Detected (Not Detect); Candida krusei Not Detected (Not Detect); Candida parapsilosis Not Detected (Not Detect); Candida tropicalis Not Detected (Not Detect); E. coli Not Detected (Not Detect); Enterobacter cloacae complex Not Detected (Not Detect); Enterobacteriaceae species Not Detected (Not Detect); Enterococcus species Not Detected (Not Detect); Haemophilus influenzae Not Detected (Not Detect); Listeria monocytogenes Not Detected (Not Detect); Neisseria meningitidis Not Detected (Not Detect); Proteus species Not Detected (Not Detect); Pseudomonas aeruginosa Not Detected (Not Detect); Serratia marcescens Not Detected (Not Detect); Staphylococcus species Not Detected (Not Detect); Streptococcus agalactiae (Gr B Not Detected (Not Detect); Streptococcus pneumonia Not Detected (Not Detect); Streptococcus pyogenes (Gr A) Not Detected (Not Detect); Streptococcus species Detected (Not Detect)
[2021-07-13] MEDS: AMIODARONE 200 MG TABLET PO (17:33)
--- NOTE | 2021-07-13 19:00 | PC.NURSE ---
Day Shift Note Alert and oriented x3. Phenylephrine gtt off at 0845. BP variable with MAPs 59-76. Pt denies pain, brief moment of nausea after breakfast that resolved with zofran. Pure wick in place to suction. Call light within reach, using appropriately to make needs known.
--- NOTE | 2021-07-13 20:37 | PM.ICURNDS ---
- :: This patient was seen via real time interactive two-way audiovisual telecommunication. Note: Patient appears comfortable on evening rounds, no complaints at this time. BP is WNL, HR in the mid-50s, satting well on RA. She has been off Phenylephrine for most of the day, continues on Amiodarone, Midodrine and Hydrocortisone. If bradycardia worsens or becomes symptomatic, may need to wean Midodrine - but currently she's comfortable in the 50s. Given that pressors are off, would wean Hydrocortisone starting tomorrow. Continue Amiodarone, anticoagulation. Follow up morning labs. If off pressors overnight, likely appropriate for ICU downgrade tomorrow.
[2021-07-13] MEDS: ATORVASTATIN 20 MG TABLET 40 MG PO (21:00)
[2021-07-14] VITALS: BP 91/44; PULSE 53; RESP 20; TEMP 36.2; O2SAT 96
[2021-07-14] MEDS: FUROSEMIDE 20 MG/2 ML VIAL IV (02:06)
[2021-07-14 04:00] VITALS: BP 96/52; PULSE 48; RESP 19; TEMP 36.4; O2SAT 100
[2021-07-14 04:43] LABS: Add Manual Diff / Slide Review NO; Basophils Absolute Auto 0 /uL (0-100); Basophils Percent Auto 0.1 % (0-2); Eosinophils Absolute Auto 0 /uL (0-450); Hematocrit 32.4 % (36-46); Hemoglobin 10.8 g/dL (12.0-16.0); Lymphocytes Absolute Auto 800 /uL (1100-4500); Lymphocytes Percent Auto 7.4 % (25-40); Mean Corpuscular HGB Conc 33.5 % (30-36); Mean Corpuscular Volume 92.7 fL (80-100); Monocytes Absolute Auto 400 /uL (0-900); Monocytes Percent Auto 3.8 % (3-14); Neutrophils Absolute Auto 9300 /uL (1500-7000); Neutrophils Percent Auto 88.7 % (50-75); Platelet Count 177 X10^3/uL (150-400); Red Blood Cell Count 3.49 X10^6/uL (4.0-5.2); Red Cell Distribution Width 14.8 % (11.6-14.8); White Blood Cell Count 10.5 X10^3/uL (4.5-11.0)
[2021-07-14 04:51] LABS: Alanine Aminotransferase 16 IU/L (<35); Albumin 3.3 g/dL (3.5-5.0); Albumin Globulin Ratio 1.4 (1.0-2.8); Alkaline Phosphatase 28 U/L (38-126); Aspartate Aminotransferase 21 IU/L (14-36); BUN Creatinine Ratio 26.8 (6-22); Bilirubin Total 0.5 mg/dL (0.2-1.3); Blood Urea Nitrogen 15 mg/dL (7-17); Calcium 8.1 mg/dL (8.4-10.2); Carbon Dioxide 38 mmol/L (22-32); Chloride 101 mmol/L (98-107); Estimated Glomerular Filt Rate > 60.0 mL/min (>60); Globulin 2.3 g/dL (1.7-4.1); Glucose 129 mg/dL (80-110); HEMOLYSIS < 15 (0-50); Potassium 3.2 mmol/L (3.4-5.1); Sodium 142 mmol/L (137-145); Total Protein 5.6 g/dL (6.3-8.2)
[2021-07-14] MEDS: MIDODRINE HCL 5 MG TABLET 10 MG PO (05:20)
[2021-07-14] MEDS: HYDROCORTISONE 100 MG/2 ML VIAL 50 MG IV (05:20)
--- NOTE | 2021-07-14 05:58 | PC.NURSE ---
Shift Note: Patient was alert and orientedx3, denies any pain/discomfort, no signs of cardiorespiratory distress. Afebrile, vital signs within acceptable limits, Patient O2 sat dropped to 88-89% when asleep, O2 support at 1lpm per nasal cannula maintain to achieve O2 sat >90%. PICC line and PIV to saline lock, PICC line dressing changed. Turned patient every 2h but patient sometimes declined to reposition. Purewick changed twice as urine output leaks out to her brief. Had bowel movement once during the shift. Patient seen by tele ICU MD, no new orders given. Will continue to monitor.
[2021-07-14] MEDS: CEFEPIME 1 GM in SODIUM CHLORIDE 0.9% 100 ML 200 ML IV ×2 (08:42→20:02)
[2021-07-14] MEDS: HYDROXYCHLOROQUINE 200 MG TABLET PO ×2 (08:43→20:28)
[2021-07-14] MEDS: DOCUSATE 100 MG CAPSULE PO ×2 (08:43→20:28)
[2021-07-14] MEDS: LINEZOLID 600 MG TABLET PO (08:43)
[2021-07-14] MEDS: APIXABAN 5 MG TABLET PO ×2 (08:43→20:28)
--- NOTE | 2021-07-14 09:20 | P.TELICUPN_ITS ---
Subjective Subjective :: This patient was seen via real time interactive two-way audiovisual telecommunication. No acute issues overnight. Remains on pressors. Blood cx growing 1/2 streptococcus. On linezolid/cefepime. Will dc linezolid obtain repeat blood cx and TTE. Current Medications Current Medications Medications: Home Medications ascorbic acid (vitamin C) 500 mg tablet 1,000 mg PO DAILY #0 02/10/16 [History Confirmed 07/06/21] folic acid 1 mg tablet 1 mg PO DAILY #0 02/10/16 [History Confirmed 07/06/21] lorazepam 0.5 mg tablet (Ativan) 0.5 mg PO HS #90 tab 02/10/16 [History Confirmed 07/06/21] multivitamin (Multiple Vitamins) 1 tab PO DAILY #0 02/10/16 [History Confirmed 07/06/21] mupirocin 2 % topical ointment 1 applictn TOP BID #30 gram 04/06/18 [Rx Confirmed 07/06/21] incontinence supplies #150 each 05/05/18 [Rx Confirmed 07/07/21] wheelchair #1 each 07/24/18 [Rx Confirmed 07/07/21] methotrexate sodium 2.5 mg tablet 12.5 mg PO .COMPLEX #90 tab 12/10/20 [Rx Co nfirmed 07/06/21] atorvastatin 40 mg tablet See Rx Instructions .ROUTE .COMPLEX #90 tab 12/15/20 [Rx Confirmed 07/06/21] hydroxychloroquine 200 mg tablet (Plaquenil) 200 mg PO BID #60 tab 12/22/20 [Rx Confirmed 07/06/21] potassium chloride 10 mEq capsule,extended release See Rx Instructions .ROUTE . COMPLEX #60 cap 01/05/21 [Rx Confirmed 07/06/21] david lift #1 ea 04/14/21 [Rx Confirmed 07/07/21] prednisone 2.5 mg tablet See Rx Instructions .ROUTE .COMPLEX #90 tab 05/22/21 [Rx Confirmed 07/06/21] Visit Medications (administered) Generic Name Dose Route Start Last Admin Trade Name Freq PRN Reason Stop Dose Admin Acetaminophen 650 mg 07/07/21 12:00 07/14/21 05:20 Acetaminophen 325 Mg Tablet PO Not Given Q6HR MÓNICA Amiodarone HCl 200 mg 07/12/21 18:00 07/13/21 17:33 Amiodarone 200 Mg Tablet PO 200 mg 1700 MÓNICA Administration Apixaban 5 mg 07/07/21 09:00 07/14/21 08:43 Apixaban 5 Mg Tablet PO 5 mg BID MÓNICA Administration Atorvastatin Calcium 40 mg 07/07/21 21:00 07/13/21 21:00 Atorvastatin 20 Mg Tablet PO 40 mg BEDTIME MÓNICA Administration Docusate Sodium 100 mg 07/07/21 09:00 07/14/21 08:43 Docusate 100 Mg Capsule PO 100 mg BID MÓNICA Administration Furosemide 20 mg 07/13/21 10:00 07/14/21 02:06 Furosemide 20 Mg/2 Ml Vial IV 20 mg Q8H MÓNICA Administration Hydrocortisone 50 mg 07/13/21 00:00 07/14/21 05:20 Hydrocortisone 100 Mg/2 Ml Vial IV 50 mg Q6HR MÓNICA Administration Hydroxychloroquine Sulfate 200 mg 07/07/21 09:00 07/14/21 08:43 Hydroxychloroquine 200 Mg Tablet PO 200 mg BID MÓNICA Administration Phenylephrine HCl 20,000 mcg/ 250 mls @ 75 mls/hr 07/10/21 18:16 07/13/21 08:49 Dextrose IV Infused TITRATE MÓNICA Titration Protocol 100 MCG/MIN Cefepime HCl 1 gm/ Sodium 100 mls @ 200 mls/hr 07/12/21 20:30 07/14/21 08:42 Chloride IV 200 mls/hr Q12H MÓNICA Administration Linezolid 600 mg 07/12/21 21:00 07/14/21 08:43 Linezolid 600 Mg Tablet PO 600 mg BID MÓNICA Administration Lorazepam 0.5 mg 07/10/21 13:42 07/10/21 13:56 Lorazepam 2 Mg/Ml Inj IV 0.5 mg Q4HR PRN Administration Anxiety Methotrexate 12.5 mg 07/07/21 09:00 07/07/21 16:58 Methotrexate 2.5 Mg Tablet PO 12.5 mg Tu@0900,1500 MÓNICA Administration Midodrine 10 mg 07/11/21 12:00 07/14/21 05:20 Midodrine Hcl 5 Mg Tablet PO 10 mg 0600,1200,1800 MÓNICA Administration Morphine Sulfate 1 mg 07/10/21 13:42 07/11/21 01:18 Morphine 2 Mg/Ml Inj IV 1 mg Q2HR PRN Administration Dyspnea Nystatin 1 applic 07/07/21 12:59 07/11/21 20:35 Nystatin Powder 15gm TOP 1 applic TID PRN Administration Rash Ondansetron HCl 4 mg 07/11/21 11:40 07/13/21 11:18 Ondansetron 4 Mg Odt SL 4 mg Q4HR PRN Administration Nausea Sodium Chloride 10 ml 07/07/21 21:00 07/13/21 21:00 Sodium Chloride 0.9% Flush IV 10 ml BID MÓNICA Administration Objective Labs Result Diagrams: 07/14/21 04:20 07/14/21 04:20 Labs: Laboratory Results - last 24 hr 07/12/21 07/14/21 07/14/21 20:50 04:20 04:20 WBC 10.5 RBC 3.49 L Hgb 10.8 L Hct 32.4 L MCV 92.7 MCH 31.0 MCHC 33.5 RDW 14.8 Plt Count 177 Neut % (Auto) 88.7 H Lymph % (Auto) 7.4 L [place] % (Auto) 3.8 Eos % (Auto) 0.0 L Baso % (Auto) 0.1 Neut # (Auto) 9300 H Lymph # (Auto) 800 L [place] # (Auto) 400 Eos # (Auto) 0 Baso # (Auto) 0 Sodium 142 Potassium 3.2 L Chloride 101 Carbon Dioxide 38 H BUN 15 Creatinine 0.56 Estimated GFR > 60.0 BUN/Creatinine Ratio 26.8 H Glucose 129 H Calcium 8.1 L Total Bilirubin 0.5 AST 21 ALT 16 Alkaline Phosphatase 28 L Total Protein 5.6 L Albumin 3.3 L Globulin 2.3 Albumin/Globulin Ratio 1.4 A. baumannii (PCR) Not detected Demetria albicans (PCR) Not detected C. glabrata (PCR) Not detected C. krusei (PCR) Not detected C. parapsilosis (PCR) Not detected C. tropicalis (PCR) Not detected Enterobacteriac sp PCR Not detected E. cloacae complex PCR Not detected Enterococcus sp PCR Not detected E. coli (PCR) Not detected H. influenzae (PCR) Not detected Klebsiella oxytoca PCR Not detected Klebsiella pneumoniae Not detected List. monocytogenes PCR Not detected N. meningitidis (PCR) Not detected Proteus species (PCR) Not detected Serratia marcescens PCR Not detected Staphylococcus sp PCR Not detected Staph aureus (PCR) Not detected mecA-Methicil Res Gene Not Reportable Streptococcus sp PCR Detected H Group A Strep (PCR) Not detected Strep agalactiae (PCR) Not detected Strep pneumoniae (PCR) Not detected P. aeruginosa (PCR) Not detected Harshil/B-Vanco Res Genes Not Reportable KPC-Carbap Res Gene PCR Not Reportable Exam Vital Signs (past 8 hours): - 07/14/21 04:00 Temperature 97.6 F Pulse Rate 48 L Respiratory Rate 19 Blood Pressure 96/52 L Pulse Oximetry 100 Fraction of Inspired Oxygen 100 Oxygen Delivery Method Nasal Cannula Oxygen Flow Rate 2 Quality TeleICU VTE Deep Vein Thrombosis/Pulmonary Embolism Present on Admission: No Assessment & Plan Assessment & Plan narrative: # Streptococcus bacteremia -- Blood cx postiive 04/05 -- Will stop linezolid and continue cefepime -- Obtain repeat blood cx -- Check repeat TTE to rule out vegetation -- Follow up repeat cx and susceptibility # Hypotension -- Remains off pressors for 24 hours -- Cont midodrine -- MAP goal > 60 # Hx of A fib -- On eliquis -- HIgh lytes goal -- Monitor on telemetry # Hx of CHF -- Appears euvolemia -- Will stop diuretic given uptrending Co2 -- Monitor I/O -- FG even -- Will uses lasix as needed for swelling or net positive fluid balance Okay to transfer to acute care. D/w RN. Time Spent With Patient Critical Care time: I spent a total of [] minutes of critical care time on this patient's care today; this time is exclusive of procedural time.
--- NOTE | 2021-07-14 09:24 | P.PN_ITS ---
Subjective Subjective Date Patient Seen: 07/14/21 Time Patient Seen: 09:24 Interval history: Patient seen and evaluated this morning. Patient is doing well. She has no complaints. Patient states she has been resting this morning. Patient states breakfast has arrived a little later. Complained yesterday and today not much of an appetite. 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 Discussion about transferring patient from ICU to floor care. Reviewed and discussed patient's medication with nursing staff. Exam Vital Signs (past 8 hours): - 07/14/21 04:00 Temperature 97.6 F Pulse Rate 48 L Respiratory Rate 19 Blood Pressure 96/52 L Pulse Oximetry 100 Fraction of Inspired Oxygen 100 Oxygen Delivery Method Nasal Cannula Oxygen Flow Rate 2 Narrative Exam Narrative: Gen.: Sleeping but arousable. Frail elderly appearing female patient HEENT: Pupils equal round and reactive or mucosa is dry neck is supple Cardio: S1-S2 systolic murmur present. Heart rates slow Respiratory: No respiratory distress normal respiratory effort some scant crackles at lung bases. Abdomen: Soft mildly distended no organomegaly. Bowel sounds present Extremities: Warm dry perfused Objective Labs Result Diagrams: 07/14/21 04:20 07/14/21 04:20 Labs: Laboratory Results - last 24 hr 07/12/21 07/14/21 07/14/21 20:50 04:20 04:20 WBC 10.5 RBC 3.49 L Hgb 10.8 L Hct 32.4 L MCV 92.7 MCH 31.0 MCHC 33.5 RDW 14.8 Plt Count 177 Neut % (Auto) 88.7 H Lymph % (Auto) 7.4 L [place] % (Auto) 3.8 Eos % (Auto) 0.0 L Baso % (Auto) 0.1 Neut # (Auto) 9300 H Lymph # (Auto) 800 L [place] # (Auto) 400 Eos # (Auto) 0 Baso # (Auto) 0 Sodium 142 Potassium 3.2 L Chloride 101 Carbon Dioxide 38 H BUN 15 Creatinine 0.56 Estimated GFR > 60.0 BUN/Creatinine Ratio 26.8 H Glucose 129 H Calcium 8.1 L Total Bilirubin 0.5 AST 21 ALT 16 Alkaline Phosphatase 28 L Total Protein 5.6 L Albumin 3.3 L Globulin 2.3 Albumin/Globulin Ratio 1.4 A. baumannii (PCR) Not detected Demetria albicans (PCR) Not detected C. glabrata (PCR) Not detected C. krusei (PCR) Not detected C. parapsilosis (PCR) Not detected C. tropicalis (PCR) Not detected Enterobacteriac sp PCR Not detected E. cloacae complex PCR Not detected Enterococcus sp PCR Not detected E. coli (PCR) Not detected H. influenzae (PCR) Not detected Klebsiella oxytoca PCR Not detected Klebsiella pneumoniae Not detected List. monocytogenes PCR Not detected N. meningitidis (PCR) Not detected Proteus species (PCR) Not detected Serratia marcescens PCR Not detected Staphylococcus sp PCR Not detected Staph aureus (PCR) Not detected mecA-Methicil Res Gene Not Reportable Streptococcus sp PCR Detected H Group A Strep (PCR) Not detected Strep agalactiae (PCR) Not detected Strep pneumoniae (PCR) Not detected P. aeruginosa (PCR) Not detected Harshil/B-Vanco Res Genes Not Reportable KPC-Carbap Res Gene PCR Not Reportable [facility] Medical History (Updated 07/07/21 @ 09:08 by Rodo Holloway MD) Hyperlipidemia Rheumatoid arthritis Social History household members: none Smoking Status: Never smoker alcohol intake: never Assessment & Plan Assessment and plan (1) Atrial fibrillation with RVR: Status: Acute Plan Atrial fibrillation with rapid ventricular response with hypotension.? Patient underwent cardioversion at [facility] on .? Patient on oral amiodarone 200 mg a day continues to be bradycardic. No signs of atrial fibrillation and normal sinus rhythm. Continue with anticoagulation with Eliquis indefinitely 5 mg twice a day. Mild drop in hemoglobin hematocrit. No signs of active bleeding. Shock with hypotension.? Cardiogenic versus adrenal insufficiency versus infectious. Pressures are remaining stable this morning patient is off blood pressure support IV but still on miderone. Blood pressure still low normal blood pressures are in the 90 systolic. Patient is now off pressors transfer to acute care floor care today. Follow up with culture results. Continue with the IV antibiotic with cephalosporin. Hold off on other antibiotics at this point. Rule out infectious etiologies by reordering blood cultures today. Repeat echocardiogram to rule out cardiac vegetations. Acute on chronic heart failure with reduced ejection fraction.? Stop Lasix today. Will go ahead and hold off on beta-edilson LIAN-inhibitor as blood pressure is quite low. Will need ongoing outpatient cardiac follow-up and cardiology consultation. Valvular heart disease with aortic valve moderate to severe stenosis.? Needs re- evaluation with Cardiology if patient is a candidate for TAVR.? Need ongoing discussion with patient and patient's primary care provider about long-term care plans goals etc.. Rheumatoid arthritis continue with home medications Multiple sclerosis.? Chronic and stable.? Disposition plan.? Transfer to floor care. Pressors off. Stop Lasix. Change from IV steroids to oral steroids of prednisone of 60 gradually taper down over the next few weeks to regular dose. Recheck for infection with echocardiogram and blood cultures. If negative may stop antibiotics. Anticipate discharge 24 to 48 hours. Time Spent With Patient Critical Care time: I spent a total of [] minutes of critical care time on this patient's care today; this time is exclusive of procedural time. Quality VTE Deep Vein Thrombosis/Pulmonary Embolism Present on Admission: No
[2021-07-14] MEDS: MIDODRINE HCL 5 MG TABLET PO ×2 (13:20→17:33)
[2021-07-14 13:24] VITALS: PULSE 60; RESP 20
[2021-07-14 13:26] VITALS: BP 116/60
--- NOTE | 2021-07-14 16:07 | DI.ECHO.S_ITS ---
[facility] +---------+ : : [address] : [place] : : : : [id number] : : : : Phone: [phone]+ Echocardiogram Report + + :Name: CHINMAY SIMS Study Date: 07/15/2021 Height: 62 in : :[facility] ReadingLocation: Weight: 132 lb : : Gender: Female BSA: 1.6 m2 : :: 1945 Age: 76 yrs BP: 119/57 mmHg: :Reason For Study: CONCERN FOR HEART VALVE VEGATATION : :Ordering Physician: MERVAT, : :LORETA Performed By: Mayte Sanchez : :Referring: LORETA CROWELL : + + Interpretation Summary No obvious valvular vegetation seen. The left ventricle is normal in size. Left ventricular ejection fraction is estimated to be 50 +/- 5%. Left ventricular systolic function has significantly improved compared to the previous exam. On July 09, 2021 before PRATIBHA cardioversion LV ejection fraction 15 to 20%. No obvious valvular vegetation that time. The right ventricle is mildly dilated. Right ventricular systolic function is at the lower limits of normal. There is severe mitral annular calcification. No significant mitral valve stenosis. The mitral valve mean gradient is 5 mmHg. There is mild to moderate mitral stenosis. The aortic valve is moderately calcified. The aortic valve is trileaflet. Noncoronary cusp is pliable with restriction of right and left coronary cusp movement. The peak aortic valve velocity 2.39 m/s. Mean gradient about 12 mmHg. Calculated aortic valve area 1.4 spiral winder?. Patient had PRATIBHA on July 09, 2021 that time calculated aortic valve area was 0.9 spiral winder?, peak aortic valve velocity 2.26 m/s and low stroke-volume. Low LV ejection fraction at that time. Overall no critical aortic stenosis. There is mild to moderate tricuspid regurgitation. Right ventricular systolic pressure is estimated to be 41 mmHg plus the clinically estimated CVP which cannot be estimated on this exam. No obvious valvular vegetation seen. Catheter like structure in the right atrium. Could be extension of central line. If indeed patient has central line, consider pulling back to the superior vena cava. The patient was in sinus bradycardia with heart rates between 46-54 bpm during the exam. The patient had a bundle branch block rhythm during the exam. Procedure: A two-dimensional transthoracic echocardiogram with color flow and Doppler was performed in limited views only to assess concerns for heart valve vegatation.. The study quality was technically adequate. Comparison is made with the echocardiogram of 07/07/2021. The patient was in sinus bradycardia with heart rates between 46-54 bpm during the exam. The patient had a bundle branch block rhythm during the exam. Left Ventricle: The left ventricle is normal in size. The estimated left ventricular end diastolic volume is 60 ml. There is no thrombus. Left ventricular ejection fraction is estimated to be 50 +/- 5%. Left ventricular systolic function has significantly improved compared to the previous exam. There are no focal wall motion abnormalities. Right Ventricle: The right ventricle is mildly dilated. Right ventricular systolic function is at the lower limits of normal. Mitral Valve: There is severe mitral annular calcification. The mitral valve leaflets are mildly calcified. The mitral valve mean gradient is 5 mmHg. No significant mitral valve stenosis. There is mild to moderate mitral stenosis. Aortic Valve: The aortic valve is moderately calcified. The aortic valve is trileaflet. Noncoronary cusp is pliable with restriction of right and left coronary cusp movement. The peak aortic valve velocity 2.39 m/s. Mean gradient about 12 mmHg. Calculated aortic valve area 1.4 spiral winder?. Patient had PRATIBHA on July 09, 2021 that time calculated aortic valve area was 0.9 spiral winder?, peak aortic valve velocity 2.26 m/s and low stroke-volume. Low LV ejection fraction at that time. Overall no critical aortic stenosis. There is mild aortic regurgitation. Tricuspid Valve: The tricuspid valve is normal. There is mild to moderate tricuspid regurgitation. Right ventricular systolic pressure is estimated to be 41 mmHg plus the clinically estimated CVP which cannot be estimated on this exam. Pulmonic Valve: The pulmonic valve leaflets are thin and pliable; valve motion is normal. There is mild pulmonic regurgitation. Pericardium/ Pleura There is no pericardial effusion. There is no pleural effusion. MMode/2D Measurements & Calculations LVOT diam: 2.0 cm Doppler Measurements & Calculations TR max garima: 321.8 cm/sec MV V2 mean: 93.8 cm/sec TR max P.4 mmHg MV mean P.8 mmHg MV V2 VTI: 39.2 cm Reading Physician:09:37 AM
[2021-07-14 17:00] VITALS: BP 119/57; PULSE 58; RESP 24; TEMP 36.6; O2SAT 97
[2021-07-14] MEDS: AMIODARONE 200 MG TABLET PO (17:33)
[2021-07-14] MEDS: POTASSIUM CHLORIDE 20 MEQ/15 ML UDC PO (17:33)
--- NOTE | 2021-07-14 17:33 | CM.DPC ---
DCP COntinued: CM spoke with [facility] to let them know that the patient is still her and will be DC in a couple of days that the patient is doing better but still not medically ready for DC. department will call [facility] at [phone] to let them know when the patient is going to be DC so they can have CG set up in the home at D/C - CM department will also set up BLS when DC is determined CM called oneyda DAUGHERTY and everything is ready for when the patient is DC they will just need a DC summary and a phone call letting them know when the patient leaves. Katharine aPcheco RNhouse carpenter helper
[2021-07-14] MEDS: ATORVASTATIN 20 MG TABLET 40 MG PO (20:28)
[2021-07-14 20:30] VITALS: BP 131/53; PULSE 48; RESP 25; TEMP 36.3; O2SAT 96
[2021-07-15 00:48] VITALS: BP 109/45; PULSE 52; RESP 22; TEMP 36.2; O2SAT 94
[2021-07-15 04:23] VITALS: BP 96/46; PULSE 45; RESP 26; TEMP 36.2; O2SAT 100
[2021-07-15 05:02] LABS: BUN Creatinine Ratio 30.3 (6-22); Blood Urea Nitrogen 20 mg/dL (7-17); Calcium 8.4 mg/dL (8.4-10.2); Carbon Dioxide 36 mmol/L (22-32); Chloride 99 mmol/L (98-107); Estimated Glomerular Filt Rate > 60 mL/min (>60); Glucose 88 mg/dL (80-110); HEMOLYSIS < 15 (0-50); Potassium 3.2 mmol/L (3.4-5.1); Sodium 142 mmol/L (137-145)
[2021-07-15] MEDS: MIDODRINE HCL 5 MG TABLET PO ×3 (06:05→17:02)
[2021-07-15 08:00] VITALS: BP 99/44; PULSE 48; RESP 30; TEMP 36.3; O2SAT 94
[2021-07-15] MEDS: predniSONE 20 MG TABLET 60 MG PO (08:24)
--- NOTE | 2021-07-15 08:24 | P.PN_ITS ---
Subjective Subjective Date Patient Seen: 07/15/21 Time Patient Seen: 08:00 Interval history: The pt reports that she is overall feeling well. She states that yesterday she felt foggy but she is feeling significantly improved and more clear today. She believes it was because she hadn't slept well the night before. She denies any chest pain, palpitations, SOB. She is overall quite cheery this morning. Exam Vital Signs (past 8 hours): - 07/15/21 00:48 07/15/21 04:23 Temperature 97.2 F L 97.2 F L Pulse Rate 52 L 45 L Respiratory Rate 22 26 H Blood Pressure 109/45 L 96/46 L Pulse Oximetry 94 100 Fraction of Inspired Oxygen 100 Oxygen Delivery Method Room Air Oxygen Flow Rate 2 Narrative Exam Narrative: Gen: NAD, sitting comfortably in bed, speaking easily and joyfully CV: RRR, grade 2/6 systolic murmur Resp: clear to auscultation bilaterally, no wheezes or crackles Abd: soft, nontender, nondistended Ext: no edema Objective Labs Result Diagrams: 07/14/21 04:20 07/15/21 04:13 Labs: Laboratory Results - last 24 hr 07/15/21 04:13 Sodium 142 Potassium 3.2 L Chloride 99 Carbon Dioxide 36 H BUN 20 H Creatinine 0.66 Estimated GFR > 60 BUN/Creatinine Ratio 30.3 H Glucose 88 Calcium 8.4 PFSH Medical History (Updated 07/07/21 @ 09:08 by Rodo Holloway MD) Hyperlipidemia Rheumatoid arthritis Social History household members: none Smoking Status: Never smoker alcohol intake: never Assessment & Plan Assessment & Plan narrative: Pt is a 76yo woman with RA, MS, osteoporosis, severe kyphoscoliosis who is wheelchair bound who presented with palpitations on 07/06, found to be in atrial fibrillation with RVR. 1) Atrial fibrillation with rapid ventricular response with hypotension: S/P Cardioversion at [facility] on 07/09. No in sinus rhythm, mildly bradycardic. - Continue Amiodarone 200mg daily - Blood pressure would not tolerate beta-edilson or calcium channel edilson - Continue Eliquis life-long 2) Shock with hypotension: Cardiogenic versus adrenal insufficiency versus infectious.? Previously requiring IV pressure support, now stable on Miderone, although pressures remain low-normal. Did have single blood culture return positive for Streptococcus from 07/12. Urine culture positive from the same day, still awaiting identification and sensitivities. Completed 2 days Linezolid, remains on Cefepime. Repeat echo without vegetations, completed today. - F/U blood culture results - Continue IV Cefepime pending repeat blood culture results - Continue Midodrine - Stress dose steroids transitioned to PO yesterday. Will taper over time. 3) Acute on chronic heart failure with reduced ejection fraction: EF significantly improved on Echo today. 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 - Will require f/u with Cardiologyvalve moderate to severe stenosis - Plan to discuss code status and future plans further tomorrow 5) Rheumatoid arthritis: Stable - Continue with home medications 6) Multiple sclerosis: Stable Dispo: Pt to floor care. Plan for d/c once blood cultures return negative. Will need Cardiology f/u as an outpatient. Potential d/c tomorrow, if not then likely the day after. Time Spent With Patient Critical Care time: I spent a total of [] minutes of critical care time on this patient's care toda y; this time is exclusive of procedural time. Quality VTE Deep Vein Thrombosis/Pulmonary Embolism Present on Admission: No
[2021-07-15] MEDS: CEFEPIME 1 GM in SODIUM CHLORIDE 0.9% 100 ML 200 ML IV ×2 (08:25→20:04)
[2021-07-15] MEDS: APIXABAN 5 MG TABLET PO ×2 (08:25→20:23)
[2021-07-15] MEDS: MULTIVITAMIN 1 TABLET 1 TAB PO (08:25)
[2021-07-15] MEDS: HYDROXYCHLOROQUINE 200 MG TABLET PO ×2 (08:25→20:23)
[2021-07-15] MEDS: DOCUSATE 100 MG CAPSULE PO ×2 (08:25→20:23)
[2021-07-15] MEDS: ASCORBIC ACID 500 MG TABLET 1000 MG PO (08:25)
[2021-07-15] MEDS: FOLIC ACID 1 MG TABLET PO (08:25)
[2021-07-15] MEDS: POTASSIUM CHLORIDE 20 MEQ/15 ML UDC 40 MEQ PO (08:26)
--- NOTE | 2021-07-15 10:39 | DIET.PN1 ---
Dietary Progress Note Assessment: RD f/u for pt with poor skin perfusion and wounds. Pts POs have improved since the weekend, consuming 50-75% meal trays and compliant with increased protein and fruit cup to support wound healing. Ht: 157.48 cm Wt: 59.6 kg BMI: 24.1 UBW: Last BM: 07/14/21 (07/14/21 06:13) MNA: 13 Dhruv Score: 18 Diet: 07/09/21 Dinner General (Regular) Diet Diet Modifications: Nutrition Percent Meal Consumed 50% 07/14/21 13:00 Percent Meal Consumed 75% 07/14/21 10:00 Percent Meal Consumed 75% 07/13/21 14:46 Labs: RBC 3.49 X10^6/uL (4.0-5.2) L 07/14/21 04:20 Hgb 10.8 g/dL (12.0-16.0) L 07/14/21 04:20 Hct 32.4 % (36-46) L 07/14/21 04:20 Creatinine 0.66 mg/dL (0.52-1.04) 07/15/21 04:13 NT-Pro-B Natriuret Pep 7770 pg/mL (<450) H 07/11/21 04:58 Nutrition Diagnosis: Chronic moderate PCM r/t increased protein needs d/t wounds and limited pro intake aeb diet recall of limited protein foods, skin ulcers, physical signs of moderate muscle and fat loss. Interventions: Continue high PRO and high Vit C diet. EER: 80g PRO (1.2g/kg per moderate malnutrition and wounds) Electronically Signed by: Justine Chowdhury 07/15/21 10:39 Clinical Dietitian [address] [id number]
--- NOTE | 2021-07-15 11:23 | CM.DPC ---
DCP Cont: Spoke with Dr. Negron this morning, who indicated, patient may be ready for discharge tomorrow. Dr. Negron mentioned, last time she was here, there was not caregiver available and grand son had to assist. Let her know that this DC High Lighter has been in touch with Danay at [facility] who is the one that works on ensuring that patient has caregivers set up. Called Danay at [facility]. She indicated that she has two caregivers tomorrow. One, Jo Ann, comes in between 0800-11:00. The other caregiver, Ariela, comes in at 1700. She indicated, she can try to see if Jo Ann can come in later. Met with patient in her room. Introduced self and role. Patient is alert and oriented, pleasant. Updated her that if she discharges tomorrow, this DC High Lighter will work on ensuring that someone is there in the home for her. Mentioned [facility] as well, to work on some mobility since patient has been mostly bed bound. She is aware that she will need ambulance transport, she is Medicaid. Left a message with updated for Vik at [facility] that patient may be discharged home tomorrow. Have already faxed her referral including orders and face to face. She will just need DC Summary upon discharge. P: DCP to continue to follow and will see if she is ready for DC tomorrow. If so, will call Danay in the am at [facility] to ensure that someone will be in her home for her. Amparo Dias RN/Bus Operator
[2021-07-15] MEDS: ACETAMINOPHEN 325 MG TABLET 650 MG PO (12:33)
[2021-07-15 12:55] VITALS: BP 106/50; PULSE 55; RESP 19; TEMP 36.6; O2SAT 95
[2021-07-15] MEDS: AMIODARONE 200 MG TABLET PO (17:02)
[2021-07-15 17:13] VITALS: BP 145/63; PULSE 59; RESP 25; TEMP 36.4; O2SAT 98
[2021-07-15] MEDS: ATORVASTATIN 20 MG TABLET 40 MG PO (20:23)
[2021-07-15 21:00] VITALS: BP 102/58; PULSE 60; RESP 18; TEMP 36.6; O2SAT 94
[2021-07-16] MEDS: ACETAMINOPHEN 325 MG TABLET 650 MG PO ×4 (00:30→17:22)
[2021-07-16 01:00] VITALS: BP 157/67; PULSE 51; RESP 13; TEMP 36.6; O2SAT 90
[2021-07-16 04:27] LABS: Add Manual Diff / Slide Review NO; Basophils Absolute Auto 100 /uL (0-100); Basophils Percent Auto 0.7 % (0-2); Eosinophils Absolute Auto 0 /uL (0-450); Eosinophils Percent Auto 0.4 % (2-4); Hemoglobin 11.6 g/dL (12.0-16.0); Lymphocytes Absolute Auto 1700 /uL (1100-4500); Lymphocytes Percent Auto 17.6 % (25-40); Mean Corpuscular Hemoglobin 31.5 PG (26-34); Mean Corpuscular Volume 92.8 fL (80-100); Monocytes Absolute Auto 700 /uL (0-900); Monocytes Percent Auto 7.2 % (3-14); Neutrophils Absolute Auto 7300 /uL (1500-7000); Neutrophils Percent Auto 74.1 % (50-75); Platelet Count 171 X10^3/uL (150-400); Red Blood Cell Count 3.67 X10^6/uL (4.0-5.2); Red Cell Distribution Width 15.1 % (11.6-14.8); White Blood Cell Count 9.9 X10^3/uL (4.5-11.0)
[2021-07-16 04:34] LABS: BUN Creatinine Ratio 40.9 (6-22); Blood Urea Nitrogen 18 mg/dL (7-17); Calcium 8.7 mg/dL (8.4-10.2); Carbon Dioxide 36 mmol/L (22-32); Chloride 100 mmol/L (98-107); Estimated Glomerular Filt Rate > 60 mL/min (>60); Glucose 102 mg/dL (80-110); HEMOLYSIS 25 (0-50); Potassium 4.4 mmol/L (3.4-5.1); Sodium 140 mmol/L (137-145)
[2021-07-16 05:00] VITALS: BP 145/63; PULSE 51; RESP 14; TEMP 36.8; O2SAT 91
[2021-07-16 07:55] VITALS: BP 114/56; PULSE 60; RESP 16; TEMP 36.4; O2SAT 98
[2021-07-16] MEDS: CEFEPIME 1 GM in SODIUM CHLORIDE 0.9% 100 ML 200 ML IV ×2 (08:18→20:46)
[2021-07-16] MEDS: DOCUSATE 100 MG CAPSULE PO ×2 (08:19→20:47)
[2021-07-16] MEDS: predniSONE 20 MG TABLET 60 MG PO (08:19)
[2021-07-16] MEDS: ASCORBIC ACID 500 MG TABLET 1000 MG PO (08:19)
[2021-07-16] MEDS: HYDROXYCHLOROQUINE 200 MG TABLET PO ×2 (08:19→20:47)
[2021-07-16] MEDS: FOLIC ACID 1 MG TABLET PO (08:19)
[2021-07-16] MEDS: APIXABAN 5 MG TABLET PO ×2 (08:19→20:47)
[2021-07-16] MEDS: MULTIVITAMIN 1 TABLET 1 TAB PO (08:19)
--- NOTE | 2021-07-16 10:45 | CM.DPC ---
Addendum entered by Amparo Dias R.N. 07/16/21 15:05: Updated patient on tow picker time of ambulance. She appreciates it. She has the mcdonald to her apartment, let her know that this DC transit planner was coordinating the time so she will be there at 5:00pm Addendum entered by Amparo Dias R.N. 07/16/21 14:16: Dr. Negron placed discharged orders. Faxed [facility] Summary, face to face and orders. Addendum entered by Amparo Dias R.N. 07/16/21 12:32: DC orders and summary are pending secondary to blood cultures, but will proceed with discharge. Will send [facility] Summary when completed. Addendum entered by Amparo Dias R.N. 07/16/21 12:25: Dr. Negron came by the care management office and indicated that she will be discharging patient home today, will be checking on her blood cultures. Called Danay at [facility] and updated her that she will discharge today, and will plan on having patient picked up at approximately 1624. Dr. Negron indicated that patient is now DNR. Gave her a POLST form to fill out so this can go with her when she is picked up. POLST was completed, gave copy for Sima to scan for chart, original will go with patient. Called [facility], and set up transport for 1645, gave room number. Did let them know that patient is Medicaid, they have a contract with them. Updated nurse, Emmanuel, as well. Called Sravanthipatrice at [facility] and updated her that patient is discharging today. She confirmed that she has orders, face to face, will just need DC Summary. Will send to [facility]. Original Note: DCP Cont: Have not yet seen patient's provider to determine if she is to be discharged home today. Went ahead and updated Danay at [facility], letting her know that provider could come during lunch time. Let her know that Dr. Negron had indicated, she most likely would be discharged today. Checked in with nurse, Emmanuel, indicated that patient has been stable. Danay will contact Ariela, her caregiver, that is supposed to come in at 1700, and have her come to the house. This DC Orthodontic Assistant will update Danay if changes. Will arrange ambulance tow picker at the time that Ariela is to show up. P: DCP to continue to follow and check in with provider today to see if patient will be discharged. Amparo Dias RN/Tsa Screener
[2021-07-16 12:00] VITALS: BP 137/62; PULSE 78; RESP 20; TEMP 36.8; O2SAT 97
[2021-07-16] MEDS: PROCHLORPERAZINE 5 MG TABLET PO (12:28)
[2021-07-16] MEDS: CALCIUM CARBONATE 500 MG TAB PO ×2 (12:28→13:13)
--- NOTE | 2021-07-16 12:41 | P.DS_ITS ---
History of Present Illness History of Present Illness Date Patient Seen: 07/16/21 Time Patient Seen: 11:30 Chief complaint: Tachycardia Narrative: 76-year-old female who is wheelchair-bound history of multiple sclerosis rheumatoid arthritis hyperlipidemia osteoporosis with kyphoscoliosis who is fairly homebound states yesterday that she just was not feeling well.? She has caregivers that come in in the morning and caregivers in the afternoon.? She lives at [facility].? She says yesterday morning she tried to swallow a few things in just felt like it she could get things down.? [place] weak.? In the afternoon did not feel any better.? The caregiver came and evaluated her found her blood pressure was to be low.? Patient states the only thing she really remembers yesterday as some stomach upset difficulty swallowing and nausea.? She says she has never really had palpitations from her heart and not aware that she has had atrial fibrillation.? She says she currently feels back to her baseline.? She has no chest pain dizziness lightheadedness fevers or chills.? She is not feeling any palpitations.? Patient denies a history of any heart disease.? She is on a statin.? She says she has never had an irregular heart rhythm and never bled on blood thinners and never had a contraindication to being on blood thinners.? Patient recognizes she is in and a [place] she says she is lip term a long time.? She is unsure of date.? She knows she is at [facility]. Discharge Providers Provider Date of admission: 07/06/21 21:51 Discharge Date: 07/16/21 Primary care physician: Radha Negron MD Consults: 07/07/21 02:18 Consult to Dietitian, Adult Routine Comment: Reason For Exam: low BMI 07/07/21 07:17 Consult to Discharge Planning Routine Comment: Consult to Physical Therapy Evaluate & Treat Comment: Physician Instructions: Evaluate and Treat 07/07/21 16:48 Consult to Dietitian, Adult Routine Comment: Reason For Exam: poor skin perfusion, fragile skin. 07/09/21 15:18 Consult to Home Health Routine Comment: Reason For Exam: Home Health RN, P.T, O.T. 07/10/21 07:43 Consult to Discharge Planning Routine Comment: plan Tuesday discharge back to [facility] 07/10/21 21:22 Consult to Occupational Therapy Evaluate & Treat Comment: Physician Instructions: Evaluate and treat 07/10/21 21:23 Consult to Physical Therapy Evaluate & Treat Comment: Physician Instructions: Evaluate and Treat 07/12/21 10:37 Consult After Hours PICC Line RN Routine Comment: Discharge provider: Radha Negron MD Summary Hospital Course Discharge Diagnosis: Atrial fibrillation with RVR Acute systolic CHF Hypotension with shock Valvular heart disease Moderate malnutrition Rheumatoid arthritis Multiple Sclerosis Hospital Course: The pt was admitted due to atrial fibrillation with RVR and mild hyptension. She received Diltiazem by EMS, followed by Digoxin and Metoprolol in the ED which were continued at admission. The pt was asymptomatic at that time. She was also initiated on Eliquis for anticoagulation. Echocardiogram showed significant systolic CHF, in addition to significant valvular heart disease. Due to hypotension, ACEi could not be initiated. Metoprolol had to be discont inued due to hypotension as well. Cardiology was consulted, and recommended Cardioversion through [facility]. The pt had been on Eliquis for > 48hrs at the time of the procedure. On 07/09 she was transfered to [facility], where cardioversion was successfully performed. The pt was initiated on Amiodarone to help keep her in sinus rhythm. The pt was feeling well after the procedure, and discharge was originally planned for 07/11 once the pt was transitioned to PO Amiodarone. On 07/10, the pt developed significant dyspnea with tachypnea, improved with oxygen supplementation. CXR showed mild pulmonary edema. She was given IV Lasix and initiated on BiPAP. Her symptoms were thought to be due to anxiety in addition to acute CHF. She was continued on Lasix, in addition to some morphine and lorazepam for anxiety, and her symptoms did improve. The pt as then noted to have persistent hypotension. She was initiated on neosynephrine. Her hypotension was thought to be due to shock, unclear infectious vs cardiogenic vs adrenal insufficiency. She was initiated on Linezolid and Cefepime due to elevated procalcitonin and persistent hypoptension with neosynephrine and then midodrine added as well. Blood and urine culture were obtained. Stress dose IV steroids were also initiated. Blood culture return 1 of 2 positive for Streptococcus. The pt was transitioned to IV Cefepime alone. The pts symptoms gradually improved. Her Lasix was stopped. She was weaned from pressors, and ultimately from midodrine at the time of discharge. Her steroids were transitioned to PO, and whe will be continued on a very gradual wean as an outpatient. Urine culture ultimately grew Enterococcus and Klebsiella, and the pt will continue on Levofloxacin as an outpatient. Repeat blood cultures were negative x 48hrs at the time of discharge. Repeat Echocardiogram showed improvement in her CHF and no evidence of cardiac vegetations. The pt remained in sinus rhythm. The pt will require close cardiology f/u as an outpatient, in addition to PCP follow-up with [facility] for UTI. Prior to discharge, the pts code status was discussed. Due to her comorbidities, she elected to transition to DNR status. POLST was completed detailing this. Status at Discharge Cognitive/behavioral status at discharge: oriented Functional status at discharge: bed bound Overall status at discharge: patient is back to baseline Exam Vital Signs (past 8 hours): - 07/16/21 05:00 07/16/21 07:55 07/16/21 12:00 Temperature 98.2 F 97.6 F 98.3 F Pulse Rate 51 L 60 Respiratory Rate 14 16 Blood Pressure 145/63 H 114/56 L Pulse Oximetry 91 98 Fraction of Inspired Oxygen 100 Oxygen Delivery Method Room Air Oxygen Flow Rate 0 Narrative Exam Narrative: Gen: NAD, laying comfortably in bed, laughing and talking easily in complete sentences CV: RRR, grade 2/6 systolic murmur Resp: clear to auscultation bilaterally Abd: soft, nontender, nondistended Ext: no edema Objective Labs Result Diagrams: 07/17/21 05:03 07/17/21 05:03 Labs: Laboratory Results - last 24 hr 07/12/21 07/16/21 07/16/21 20:50 04:15 04:15 WBC 9.9 RBC 3.67 L Hgb 11.6 L Hct 34.0 L MCV 92.8 MCH 31.5 MCHC 34.0 RDW 15.1 H Plt Count 171 Neut % (Auto) 74.1 Lymph % (Auto) 17.6 L [place] % (Auto) 7.2 Eos % (Auto) 0.4 L Baso % (Auto) 0.7 Neut # (Auto) 7300 H Lymph # (Auto) 1700 [place] # (Auto) 700 Eos # (Auto) 0 Baso # (Auto) 100 Sodium 140 Potassium 4.4 D Chloride 100 Carbon Dioxide 36 H BUN 18 H Creatinine 0.44 L Estimated GFR > 60 BUN/Creatinine Ratio 40.9 H Glucose 102 Calcium 8.7 A. baumannii (PCR) Not detected Demetria albicans (PCR) Not detected C. glabrata (PCR) Not detected C. krusei (PCR) Not detected C. parapsilosis (PCR) Not detected C. tropicalis (PCR) Not detected Enterobacteriac sp PCR Not detected E. cloacae complex PCR Not detected Enterococcus sp PCR Not detected E. coli (PCR) Not detected H. influenzae (PCR) Not detected Klebsiella oxytoca PCR Not detected Klebsiella pneumoniae Not detected List. monocytogenes PCR Not detected N. meningitidis (PCR) Not detected Proteus species (PCR) Not detected Serratia marcescens PCR Not detected Staphylococcus sp PCR Not detected Staph aureus (PCR) Not detected Streptococcus sp PCR Detected H Group A Strep (PCR) Not detected Strep agalactiae (PCR) Not detected Strep pneumoniae (PCR) Not detected P. aeruginosa (PCR) Not detected PFSH Medical History (Updated 07/07/21 @ 09:08 by Rodo Holloway MD) Hyperlipidemia Rheumatoid arthritis Social History household members: none Smoking Status: Never smoker alcohol intake: never Discharge Plan Discharge Plan Patient Disposition: Home Health Service Transfer to: [facility] Discharge orders & Medications Prescriptions: New Eliquis 5 mg Tablet 5 mg PO BID Qty: 60 1RF amiodarone 200 mg tablet 200 mg PO DAILY Qty: 30 3RF prednisone 20 mg Tablet See Rx Instructions .ROUTE .COMPLEX Qty: 33 0RF Rx Instructions: Take 3 tabs daily for 4 days, 2 tabs daily for 7 days, 1 tab daily for 7 days, then back to normal 2.5mg daily Deep Sea Nasal 0.65 % Aerosol,Harshaw 1 spray intranasal PRN PRN (Reason: Congestion) Qty: 44 0RF levofloxacin 750 mg tablet 750 mg PO DAILY Qty: 7 0RF Continued mupirocin 2 % ointment 1 applictn TOP BID Qty: 30 0RF lorazepam [Ativan] 0.5 MG tablet 0.5 mg PO HS Qty: 90 0RF Label Comments: pt states that she takes as needed folic acid 1 MG tablet 1 mg PO DAILY Qty: 0 0RF multivitamin [Multiple Vitamins] 1 EACH tablet 1 tab PO DAILY Qty: 0 0RF Label Comments: pt has not taken in a while and states she would like to take them again ascorbic acid (vitamin C) 500 MG tablet 1,000 mg PO DAILY Qty: 0 0RF (DME) incontinence supplies Qty: 150 0RF Dose Instruction: As directed Rx Instructions: As directed change up to 5 times daily (DME) wheelchair device See Dose Instructions .ROUTE .MEDSUPPLY Qty: 1 0RF Dose Instruction: As directed Rx Instructions: repair and replace as needed methotrexate sodium 2.5 mg tablet 12.5 mg PO .COMPLEX Qty: 90 3RF Rx Instructions: 12.5 mg PO Take 5 tablets in the morning and 5 in the afternoon once weekly; Tuesdays atorvastatin 40 mg tablet See Rx Instructions .ROUTE .COMPLEX Qty: 90 1RF Dose Instruction: TAKE 1 TABLET BY MOUTH DAILY Rx Instructions: TAKE 1 TABLET BY MOUTH DAILY hydroxychloroquine [Plaquenil] 200 mg tablet 200 mg PO BID Qty: 60 3RF potassium chloride 10 mEq capsule, extended release See Rx Instructions .ROUTE .COMPLEX Qty: 60 2RF Dose Instruction: TAKE 1 CAPSULE BY MOUTH TWICE DAILY Rx Instructions: TAKE 1 CAPSULE BY MOUTH TWICE DAILY (DME) david lift See Rx Instructions .Route .MEDSUPPLY Qty: 1 0RF Rx Instructions: As directed Discontinued prednisone 2.5 mg tablet See Rx Instructions .ROUTE .COMPLEX Qty: 90 2RF Dose Instruction: TKE TWO TABLETS BY MOUTH EVERY MORNING AND ONE TABLET BY MOUTH IN THE EVENING Rx Instructions: TKE TWO TABLETS BY MOUTH EVERY MORNING AND ONE TABLET BY MOUTH IN THE EVENING Follow up/Referrals: Radha Negron MD [Primary Care Provider] - 07/24/21 11:15 am Tara Cain MD [Physician] - 2 Weeks (Dr. Negron's office staff was notified today (07/16/21) at 2:40 PM that this provider requires a referral before appointment can be made. ) Diet/Activity/Treatments Diet: Diet as Tolerated Visit Report/Discharge Packet Visit Report Forms: Patient Portal/API, Stroke Signs & Symptoms Discharge Data Primary Care Provider: Radha Negron Quality VTE Deep Vein Thrombosis/Pulmonary Embolism Present on Admission: No
--- NOTE | 2021-07-16 15:10 | PC.NURSE ---
Addendum entered by Kolby Abdul R.N. 07/16/21 18:19: Called to DI read room and spoke with Dr. May. Asked if PICC line was in appropriate position. Dr. May reviewed films and recommended pulling back 2cm. Addendum entered by Kolby Abdul R.N. 07/16/21 17:07: Placed pt back on telemetry while awaiting clarification of orders (pt was previously removed from monitoring r/t discharge). Noted pt to have irregular HR 90s-105. Checked O2 sats and noted it to be 88%. RR 36. Pt c/o dyspnea. Placed pt on 2L NC with increase in sats to 94%. Called to Dr. Granado. Reported O2 needs, rhythm change from previous assessment, pt c/o dyspnea. Orders rec'd to continue telemetry monitoring. Reported BP. Requested clarification of midodrine. Instructed to give as ordered. Addendum entered by Kolby Abdul R.N. 07/16/21 16:46: Notified daughter via phone of pt's canceled discharge, per pt request. Addendum entered by Kolby Abdul R.N. 07/16/21 15:46: Pt c/o GI upset. Expresses concern about going home with this much stomach pain. Pt has had at least 4 Pepsi's today. I have attempted to educate her that this may worsen her GI upset; however, pt states that it actually helps her stomach. Pt is requesting tylenol that was previously ineffective for this reported pain. Reminded pt that this was ineffective and pt states that It actually did help. Abd is soft/non tender to palpation. Bowel tones are active. Pt is unsure if she feels constipated. LBM 4/12. Offered to assist pt to bsc or bedpan to which she declined. Pt reports anxiety r/t stomach pain and is tachypneic RR 30 SPO2 92% HR 90. Called and reported the above findings to Dr. Granado. Dr. Granado states he will cancel discharge and write orders. Original Note: Called to Dr. Negron's office. Reported to office staff that pt will need a referral to cardiology before appt can be made with Dr. Cain. Dr. Negron was not available so left this message. Also scheduled f/u appt.
[2021-07-16] MEDS: SODIUM CHLORIDE NASAL SPRAY 1 SPRAY NASAL (15:31)
--- NOTE | 2021-07-16 15:46 | DI.RAD.S_ITS ---
PROCEDURE: XR ACUTE ABDOMEN SERIES INDICATIONS: abd pain TECHNIQUE: One view chest and two views of the abdomen were acquired. COMPARISON: [facility], CR, XR CHEST 1V, 07/12/2021, 17:00. [facility], CR, XR CHEST 1V, 07/13/2021, 7:58. FINDINGS: Surgical changes and devices: Right arm PICC line, projecting to the SVC right atrial junction. Chest: Pulmonary edema, as before. Cardiomegaly. Small pleural effusions. No pneumoperitoneum. Abdomen: Bowel gas pattern is nonspecific without evidence of bowel obstruction. No suspicious calcifications. Visualized solid organ contours appear normal. Bones: No suspicious bony lesions. IMPRESSION: 1. Congestive heart failure. 2. Nonspecific bowel gas pattern. Dictated by: Adolfo Bates M.D. on 07/16/2021 at 17:02 Approved by: Adolfo Bates M.D. on 07/16/2021 at 17:04
--- NOTE | 2021-07-16 15:54 | CM.DPC ---
Addendum entered by Amparo Dias R.N. 07/16/21 16:00: Did call [facility] as well to cancel transport. Original Note: DCP Cont: Just found out that discharge is being cancelled secondary to abdominal pain. Nurse, Emmanuel, indicated that she had updated Dr. Granado. Called Danay at [facility], and let her know that this DC case planner just found out that patient was not being discharged. Danay stated, it's getting more difficult to keep calling these caregivers and having them not come in. Let her know that this DC case planner just found out about this. Danay indicated that this DC case planner will need to call diamond blender number for tomorrow to arrange caregivers if she is discharged, since office is closed. Left Tom at [facility] a message that patient is not discharging today. Will see if she is stable for discharge tomorrow. P: DCP to continue to follow. Patient may be ready for DC tomorrow, and will have to call after hours number for caregivers, and notify [facility]. Amparo Dias RN/Bonbon Dipper
[2021-07-16 16:00] VITALS: BP 139/91; PULSE 60; RESP 33; TEMP 36.7; O2SAT 95
[2021-07-16] MEDS: PANTOPRAZOLE 40 MG VIAL 20 MG IV (16:00)
[2021-07-16] MEDS: AMIODARONE 200 MG TABLET PO (16:42)
--- NOTE | 2021-07-16 17:10 | PM.EVENT ---
Event Note Date Patient Seen: 07/16/21 Time Patient Seen: 17:10 Event Note (Rapid Response, Code, or fall): Patient was apparently discharged earlier today but before leaving had the onset of vague mid abdominal discomfort describing it is kind of an upset stomach. She said that drinking Pepsi made feel better. Oral antacids did not seem to make much of a difference in exam was benign I elected to cancel her discharge she was placed back on telemetry in found to be back in atrial fibrillation with a heart rate of about 90. Blood pressure stable in the 130s. Patient is also now complaining of some mild dyspnea and is somewhat tachypneic. Her oxygen saturation on room air was 88% and she has been placed back on nasal cannula oxygen This point we will resume her midodrine which had been somewhat discontinued in the process of discharging her and not continued upon discharge apparently. I am going to give her a low-dose of furosemide. I did give her a dose of IV Protonix in effort to see if we could resolves over GI symptoms before discovering that she was in atrial fibrillation Chest x-ray done as part of an acute abdominal series shows to my interpretation a bit more pulmonary edema than chest x-ray done on the 13 of July. Hopefully with a bit of Lasix and oxygen patient will feel better. I am not exactly sure what next to be done for her atrial fibrillation given that she has now been evaluated with transesophageal echocardiography then had cardioversion performed and loaded with amiodarone and continues on amiodarone orally and yet has returned to atrial fibrillation. Suggest Cardiology be consulted. I see that echocardiogram done with limited views 2 days ago showed improvement in left ventricular function but she was in sinus rhythm at that time as well.
[2021-07-16] MEDS: FUROSEMIDE 40 MG/4 ML VIAL 20 MG IV (17:21)
[2021-07-16] MEDS: MIDODRINE HCL 5 MG TABLET 2.5 MG PO (17:22)
[2021-07-16 19:30] VITALS: BP 135/65; PULSE 71; RESP 27; TEMP 36.2; O2SAT 99
[2021-07-16] MEDS: ATORVASTATIN 20 MG TABLET 40 MG PO (20:47)
[2021-07-16] MEDS: SODIUM CHLORIDE 0.9% FLUSH 10 ML IV (21:50)
[2021-07-17] VITALS (9 sets, daily range): BP systolic 93–143; BP diastolic 39–78; PULSE 59–66; RESP 14–30; TEMP 36.3–36.6; O2SAT 94–98
[2021-07-17 05:14] LABS: Add Manual Diff / Slide Review NO; Basophils Absolute Auto 100 /uL (0-100); Basophils Percent Auto 0.6 % (0-2); Eosinophils Absolute Auto 100 /uL (0-450); Hematocrit 34.5 % (36-46); Hemoglobin 11.4 g/dL (12.0-16.0); Lymphocytes Absolute Auto 1900 /uL (1100-4500); Lymphocytes Percent Auto 18.7 % (25-40); Mean Corpuscular HGB Conc 32.9 % (30-36); Mean Corpuscular Hemoglobin 30.7 PG (26-34); Mean Corpuscular Volume 93.3 fL (80-100); Monocytes Absolute Auto 700 /uL (0-900); Monocytes Percent Auto 7.3 % (3-14); Neutrophils Absolute Auto 7400 /uL (1500-7000); Neutrophils Percent Auto 72.4 % (50-75); Platelet Count 147 X10^3/uL (150-400); Red Blood Cell Count 3.69 X10^6/uL (4.0-5.2); White Blood Cell Count 10.2 X10^3/uL (4.5-11.0)
[2021-07-17 05:31] LABS: Alanine Aminotransferase 19 IU/L (<35); Albumin 3.5 g/dL (3.5-5.0); Albumin Globulin Ratio 1.5 (1.0-2.8); Alkaline Phosphatase 31 U/L (38-126); Aspartate Aminotransferase 34 IU/L (14-36); BUN Creatinine Ratio 30.8 (6-22); Bilirubin Total 0.5 mg/dL (0.2-1.3); Blood Urea Nitrogen 12 mg/dL (7-17); Calcium 8.5 mg/dL (8.4-10.2); Chloride 96 mmol/L (98-107); Estimated Glomerular Filt Rate > 60 mL/min (>60); Globulin 2.4 g/dL (1.7-4.1); Glucose 89 mg/dL (80-110); HEMOLYSIS < 15 (0-50); Lipase 53 U/L (23-300); Potassium 3.7 mmol/L (3.4-5.1); Sodium 139 mmol/L (137-145); Total Protein 5.9 g/dL (6.3-8.2)
[2021-07-17 05:39] LABS: NT-proBNP (BNP-Adult 18+) 24800 pg/mL (<450)
[2021-07-17 05:45] LABS: Carbon Dioxide 43 mmol/L (22-32)
[2021-07-17] MEDS: MIDODRINE HCL 5 MG TABLET 2.5 MG PO ×3 (06:36→17:12)
[2021-07-17] MEDS: ACETAMINOPHEN 325 MG TABLET 650 MG PO ×3 (06:37→17:12)
[2021-07-17 08:05] LABS: Magnesium 1.9 mg/dL (1.6-2.3)
--- NOTE | 2021-07-17 08:33 | PM.PN.1 ---
Subjective Subjective Date Patient Seen: 07/17/21 Time Patient Seen: 07:45 Interval history: The pt reports that she is feeling much better this morning compared to yesterday afternoon. She denies any additional abdominal pain. She reports that her breathing is improved, and she primarily complains of mild nasal congestion. Exam Vital Signs (past 8 hours): - 07/17/21 04:00 07/17/21 08:00 Temperature 97.5 F L 98 F Pulse Rate 63 59 L Respiratory Rate 25 H 30 H Blood Pressure 119/78 143/56 H Pulse Oximetry 98 98 Fraction of Inspired Oxygen 100 Oxygen Delivery Method Room Air Oxygen Flow Rate 2 Narrative Exam Narrative: Gen: NAD, sitting comfortably in bed, appears well, speaking easily in complete sentences CV: RRR, grade 2/6 systolic murmur Resp: bilateral basilar faint crackles, no wheezing Abd: soft, nontender, nondistended, normoactive bowel sounds Ext: no edema Objective Labs Result Diagrams: 07/17/21 05:03 07/17/21 05:03 Labs: Laboratory Results - last 24 hr 07/17/21 07/17/21 07/17/21 05:03 05:03 05:03 WBC 10.2 RBC 3.69 L Hgb 11.4 L Hct 34.5 L MCV 93.3 MCH 30.7 MCHC 32.9 RDW 15.0 H Plt Count 147 L Neut % (Auto) 72.4 Lymph % (Auto) 18.7 L [place] % (Auto) 7.3 Eos % (Auto) 1.0 L Baso % (Auto) 0.6 Neut # (Auto) 7400 H Lymph # (Auto) 1900 [place] # (Auto) 700 Eos # (Auto) 100 Baso # (Auto) 100 Sodium 139 Potassium 3.7 Chloride 96 L Carbon Dioxide 43 H* BUN 12 Creatinine 0.39 L Estimated GFR > 60 BUN/Creatinine Ratio 30.8 H Glucose 89 Calcium 8.5 Magnesium Total Bilirubin 0.5 AST 34 ALT 19 Alkaline Phosphatase 31 L NT-Pro-B Natriuret Pep 76727 H Total Protein 5.9 L Albumin 3.5 Globulin 2.4 Albumin/Globulin Ratio 1.5 Lipase 53 07/17/21 05:03 WBC RBC Hgb Hct MCV MCH MCHC RDW Plt Count Neut % (Auto) Lymph % (Auto) [place] % (Auto) Eos % (Auto) Baso % (Auto) Neut # (Auto) Lymph # (Auto) [place] # (Auto) Eos # (Auto) Baso # (Auto) Sodium Potassium Chloride Carbon Dioxide BUN Creatinine Estimated GFR BUN/Creatinine Ratio Glucose Calcium Magnesium 1.9 Total Bilirubin AST ALT Alkaline Phosphatase NT-Pro-B Natriuret Pep Total Protein Albumin Globulin Albumin/Globulin Ratio Lipase [facility] Medical History (Updated 07/07/21 @ 09:08 by Rodo Holloway MD) Hyperlipidemia Rheumatoid arthritis Social History household members: none Smoking Status: Never smoker alcohol intake: never Assessment & Plan Assessment & Plan narrative: Pt is a 76yo woman with RA, MS, osteoporosis, severe kyphoscoliosis who is wheelchair bound who presented with palpitations on 07/06, found to be in atrial fibrillation with RVR. 1)? Atrial fibrillation with rapid ventricular response with hypotension:? S/P Cardioversion at [facility] on 07/09.? Pt did revert to atrial fibrillation sporadically yesterday afternoon, now sinus overnight and into today. Remained rate controlled when in atrial fibrillation. - Continue Amiodarone 200mg daily - Blood pressure would not tolerate beta-edilson or calcium channel edilson - Continue Eliquis life-long - Will need close Cardiology f/u as an outpatient, outpatient referral placed today. If pt persistently back into atrial fibrillation, will consult again inpatient. 2)? Acute on chronic heart failure with reduced ejection fraction:? EF significantly improved on Echo 07/15. Pt with increasing SOB yesterday and XR showed increased pulmonary edema. Oxygen requirement overnight. BNP very elevated today. Received 20mg IV Lasix yesterday. Now transitioned back to room air. Does have crackles on exam today still. - Repeat 20mg Lasix dose today - Monitor closely. Repeat Echo if not continuing to stabilize. 3)? Shock with hypotension:? Cardiogenic versus adrenal insufficiency versus infectious.? More likely infectious with UTI present. Previously requiring IV pressure support, now stable.? Remains on Midodrine to allow for diuresis with Furosemide. Did have single blood culture return positive for Streptococcus from 07/12, however most likely contaminant. Repeat blood cultures negative x 48hrs. Urine growing Klebsiella and Enterococcus. Completed 2 days Linezolid, remains on Cefepime.? Repeat echo without vegetations, completed 07/15. - Transition to IV Ciprofloxacin to cover UTI bacteria - Continue Midodrine at 2.5mg TID - Stress dose steroids transitioned to PO.? Will taper over time. 4)? 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 Stable overall, however poor prognosis. Possibly contributing to CHF. - Will require f/u with Cardiology 5)? Rheumatoid arthritis:? Stable - Continue with home medications 6)? Multiple sclerosis:? Stable FEN: General diet DVT ppx: On Eliquis Code: Discussed with pt in detail yesterday. Transitioned to DNR status due to multiple comorbidities. Dispo: Pending ongoing stabilization of respiratory status and ongoing diuresis. Hopefully stable for d/c tomorrow. Care management aware - has after-hours number for re-instating caregivers at home. Time Spent With Patient Critical Care time: I spent a total of [] minutes of critical care time on this patient's care today; this time is exclusive of procedural time. Quality VTE Deep Vein Thrombosis/Pulmonary Embolism Present on Admission: No
[2021-07-17] MEDS: FOLIC ACID 1 MG TABLET PO (08:41)
[2021-07-17] MEDS: MULTIVITAMIN 1 TABLET 1 TAB PO (08:41)
[2021-07-17] MEDS: SODIUM CHLORIDE 0.9% FLUSH 10 ML IV ×2 (08:41→20:25)
[2021-07-17] MEDS: APIXABAN 5 MG TABLET PO ×2 (08:41→20:40)
[2021-07-17] MEDS: HYDROXYCHLOROQUINE 200 MG TABLET PO ×2 (08:41→20:40)
[2021-07-17] MEDS: ASCORBIC ACID 500 MG TABLET 1000 MG PO (08:41)
[2021-07-17] MEDS: predniSONE 20 MG TABLET 60 MG PO (08:41)
[2021-07-17] MEDS: DOCUSATE 100 MG CAPSULE PO ×2 (08:41→20:40)
[2021-07-17] MEDS: CEFEPIME 1 GM in SODIUM CHLORIDE 0.9% 100 ML 200 ML IV (08:42)
[2021-07-17] MEDS: FUROSEMIDE 40 MG/4 ML VIAL 20 MG IV (08:47)
--- NOTE | 2021-07-17 10:59 | CM.DPC ---
Addendum entered by Amparo Dias R.N. 07/17/21 12:52: Called Tom at [facility] and gave her an update that patient is staying another day, and will give her an update tomorrow. Original Note: DCP Con: Spoke to Dr. Negron. She indicated that she is keeping patient another day, wants to ensure that her CHF is controlled. She feels patient should be able to discharge tomorrow, as long as caregivers are in place. Let her know that DC tool and production planner will need to call after hours number to ensure that there will be someone there. This would also have needed to occur today, since office is not opened today as well. POLST is completed behind face sheet, and BLS form, as long as caregiver can be secure, she should be able to go home tomorrow, and [facility] will need to be updated. P: DCP to continue to follow. If plan is to DC tomorrow, will need to call the same caregiver number: [phone] which will be after hours to set up caregivers. [facility] will need new DC summary, and BLS will need to be arranged (form and POLST is behind face sheet). Amparo Dias RN/Director Of Recruitment
[2021-07-17] MEDS: CIPROFLOXACIN 400 MG/200 ML PIGGYBACK 200 MG IV (11:38)
[2021-07-17] MEDS: AMIODARONE 200 MG TABLET PO (17:12)
--- NOTE | 2021-07-17 19:48 | PC.NURSE ---
Pt transferred out of ICU shortly after noon, VSS, afebrile on RA. A&OX3. No acute distress. Continuous monitoring.
[2021-07-17] MEDS: ATORVASTATIN 20 MG TABLET 40 MG PO (20:39)
[2021-07-18] MEDS: CIPROFLOXACIN 400 MG/200 ML PIGGYBACK 200 MG IV ×3 (00:01→22:19)
[2021-07-18 04:00] VITALS: BP 105/60; PULSE 61; RESP 16; TEMP 36.7; O2SAT 94
[2021-07-18] MEDS: ACETAMINOPHEN 325 MG TABLET 650 MG PO ×3 (06:06→17:29)
[2021-07-18] MEDS: MIDODRINE HCL 5 MG TABLET 2.5 MG PO ×3 (06:07→17:33)
[2021-07-18 06:21] LABS: BUN Creatinine Ratio 39.6 (6-22); Blood Urea Nitrogen 19 mg/dL (7-17); Calcium 8.5 mg/dL (8.4-10.2); Chloride 95 mmol/L (98-107); Estimated Glomerular Filt Rate > 60 mL/min (>60); Glucose 88 mg/dL (80-110); HEMOLYSIS < 15 (0-50); Potassium 3.2 mmol/L (3.4-5.1); Sodium 139 mmol/L (137-145)
[2021-07-18 06:36] LABS: Carbon Dioxide 42 mmol/L (22-32)
[2021-07-18 07:50] VITALS: BP 120/33; PULSE 62; RESP 16; TEMP 36.3; O2SAT 95
[2021-07-18] MEDS: ASCORBIC ACID 500 MG TABLET 1000 MG PO (08:51)
[2021-07-18] MEDS: DOCUSATE 100 MG CAPSULE PO ×2 (08:51→20:15)
[2021-07-18] MEDS: FOLIC ACID 1 MG TABLET PO (08:51)
[2021-07-18] MEDS: APIXABAN 5 MG TABLET PO ×2 (08:51→20:15)
[2021-07-18] MEDS: MULTIVITAMIN 1 TABLET 1 TAB PO (08:51)
[2021-07-18] MEDS: HYDROXYCHLOROQUINE 200 MG TABLET PO ×2 (08:51→20:15)
[2021-07-18] MEDS: predniSONE 20 MG TABLET 60 MG PO (08:52)
--- NOTE | 2021-07-18 13:09 | P.PN_ITS ---
Exam Vital Signs (past 8 hours): - 07/18/21 07:50 Temperature 97.4 F L Pulse Rate 62 Respiratory Rate 16 Blood Pressure 120/33 L Pulse Oximetry 95 Fraction of Inspired Oxygen 100 Oxygen Delivery Method Nasal Cannula Oxygen Flow Rate 0 Objective Labs Result Diagrams: 07/17/21 05:03 07/18/21 06:01 Labs: Laboratory Results - last 24 hr 07/18/21 06:01 Sodium 139 Potassium 3.2 L Chloride 95 L Carbon Dioxide 42 H* BUN 19 H Creatinine 0.48 L Estimated GFR > 60 BUN/Creatinine Ratio 39.6 H Glucose 88 Calcium 8.5 [facility] Medical History (Updated 07/07/21 @ 09:08 by Rodo Holloway MD) Hyperlipidemia Rheumatoid arthritis Social History household members: none Smoking Status: Never smoker alcohol intake: never Assessment & Plan Assessment & Plan narrative: Assessment & Plan narrative: Pt is a 76yo woman with RA, MS, osteoporosis, severe kyphoscoliosis who is wheelchair bound who presented with palpitations on 07/06, found to be in atrial fibrillation with RVR. Spent 60 minutes with patient reviewing her chart and workup in meeting with patient and discussing with nursing staff and pharmacy. 1)? Atrial fibrillation with rapid ventricular response with hypotension:? S/P Cardioversion at [facility] on 07/09.? Pt did revert to atrial fibrillation spontaneously on 07/16/2021, now sinus rhythm on the and today as well. Remained rate controlled when in atrial fibrillation. - Continue Amiodarone 200mg daily - Blood pressure would not tolerate beta-edilson or calcium channel edilson - Continue Eliquis life-long - Will need close Cardiology f/u as an outpatient, outpatient referral placed today.? If pt persistently back into atrial fibrillation, will consult again inpatient. 2)? Acute on chronic heart failure with reduced ejection fraction:? EF significantly improved on Echo 07/15.? Pt with increasing shortness of breath on 07/16/2021 which was thought to be related to patient reverting back to atrial fibrillation and probable fluid overload with that. Patient has received 2 days of IV Lasix which excellent response. She will likely need a low-dose Lasix. I think she is probably slightly intravascular volume depleted today so we will very judiciously continue p.o. furosemide and will treat her new hypokalemia are will monitor her closely with hopes of discharge home tomorrow if she continues to be stable. If she has further atrial fibrillation then we would repeat echo and repeat cardiology evaluation. - Monitor closely.? Repeat Echo if not continuing to stabilize. 3)? Shock with hypotension:? Cardiogenic versus adrenal insufficiency versus infectious.? More likely infectious with UTI present.? Previously requiring IV pressure support, now stable.? Remains on Midodrine to allow for diuresis with Furosemide.? Did have single blood culture return positive for Streptococcus from 07/12, however most likely contaminant.? Repeat blood cultures negative x 48hrs.? Urine growing Klebsiella and Enterococcus.? Completed 2 days Linezolid, remains on Cefepime.? Repeat echo without vegetations, completed 07/15. - Transition to IV Ciprofloxacin to cover UTI bacteria but will likely send her home without antibiotics as I think she will be considered treated. - Continue Midodrine at 2.5mg TID - Stress dose steroids transitioned to PO.? Will taper over time. 4)? 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 Stable overall, however poor prognosis.? Possibly contributing to CHF. - Will require f/u with Cardiology 5)? Rheumatoid arthritis:? Stable - Continue with home medications. No acute flare. Continue hydroxychloroquine, prednisone, methotrexate the we may want to hold her next dose. 6)? Multiple sclerosis:? Stable 7) hypokalemia. Patient is on potassium as an outpatient 10 mEq. She received 20 mEq twice daily until July 15 and then was having upper and a normal potassium so I believe potassium was. For this reason. She has now had increase in furosemide without potassium so she was given 40 mEq based on pharmacy protocol today. We will reassess tomorrow. Will likely send her home on 20 mEq with 20 mg of Lasix but we will see what her potassium is tomorrow. FEN:? General diet DVT ppx:? On Eliquis Code:? Discussed with pt in detail yesterday.? Transitioned to DNR status due to multiple comorbidities. Disposition: Patient will go home with caregivers and outreach and education social worker has after hours number to call them if she does go home tomorrow Time Spent With Patient Critical Care time: I spent a total of [] minutes of critical care time on this patient's care today; this time is exclusive of procedural time. Quality VTE Deep Vein Thrombosis/Pulmonary Embolism Present on Admission: No
[2021-07-18] MEDS: POTASSIUM CHLORIDE 20 MEQ TAB 40 MEQ PO (13:15)
[2021-07-18] MEDS: FUROSEMIDE 20 MG TABLET PO (13:15)
[2021-07-18] MEDS: POTASSIUM CHLORIDE IN WATER 10 MEQ/100 ML PIGGYBACK 100 MEQ IV ×4 (14:05→17:05)
[2021-07-18 14:25] VITALS: BP 99/33; PULSE 63; RESP 16; TEMP 36.2; O2SAT 93
[2021-07-18] MEDS: SODIUM CHLORIDE 0.9% 250 ML 21 ML IV (14:35)
[2021-07-18] MEDS: AMIODARONE 200 MG TABLET PO (16:02)
[2021-07-18] MEDS: ATORVASTATIN 20 MG TABLET 40 MG PO (20:15)
[2021-07-18 20:35] VITALS: BP 118/46; PULSE 63; RESP 17; TEMP 36.3; O2SAT 96
[2021-07-18] MEDS: SODIUM CHLORIDE 0.9% FLUSH 10 ML IV (21:47)
[2021-07-19 00:04] VITALS: BP 112/69; PULSE 64; RESP 15; TEMP 36.3; O2SAT 94
[2021-07-19 04:43] VITALS: BP 110/68; PULSE 61; RESP 17; TEMP 37.1; O2SAT 93
[2021-07-19] MEDS: ACETAMINOPHEN 325 MG TABLET 650 MG PO (06:12)
[2021-07-19] MEDS: MIDODRINE HCL 5 MG TABLET 2.5 MG PO (06:13)
[2021-07-19 06:20] LABS: Add Manual Diff / Slide Review NO; Basophils Absolute Auto 100 /uL (0-100); Basophils Percent Auto 0.7 % (0-2); Eosinophils Absolute Auto 100 /uL (0-450); Hematocrit 36.3 % (36-46); Hemoglobin 11.8 g/dL (12.0-16.0); Lymphocytes Absolute Auto 2200 /uL (1100-4500); Lymphocytes Percent Auto 19.2 % (25-40); Mean Corpuscular HGB Conc 32.5 % (30-36); Mean Corpuscular Hemoglobin 30.3 PG (26-34); Mean Corpuscular Volume 93.5 fL (80-100); Monocytes Absolute Auto 1100 /uL (0-900); Monocytes Percent Auto 9.5 % (3-14); Neutrophils Absolute Auto 7900 /uL (1500-7000); Neutrophils Percent Auto 69.6 % (50-75); Platelet Count 146 X10^3/uL (150-400); Red Blood Cell Count 3.88 X10^6/uL (4.0-5.2); White Blood Cell Count 11.4 X10^3/uL (4.5-11.0)
[2021-07-19 06:32] LABS: BUN Creatinine Ratio 45.5 (6-22); Blood Urea Nitrogen 20 mg/dL (7-17); Calcium 8.8 mg/dL (8.4-10.2); Chloride 97 mmol/L (98-107); Estimated Glomerular Filt Rate > 60 mL/min (>60); Glucose 94 mg/dL (80-110); HEMOLYSIS 24 (0-50); Potassium 3.9 mmol/L (3.4-5.1); Sodium 139 mmol/L (137-145)
[2021-07-19 06:38] LABS: Carbon Dioxide 39 mmol/L (22-32)
[2021-07-19 07:26] LABS: Magnesium 2.1 mg/dL (1.6-2.3)
--- NOTE | 2021-07-19 07:45 | PC.NURSE ---
Day shift: Pt asked this AM What is the plan, am I going home today? My family wants to know and so do I. She denies any pain, chest pain or nausea. Call light in reach.
[2021-07-19 08:00] VITALS: BP 125/78; PULSE 63; RESP 16; TEMP 36.4; O2SAT 96
--- NOTE | 2021-07-19 08:20 | P.DS_ITS ---
History of Present Illness History of Present Illness Chief complaint: Tachycardia Discharge Providers Provider Date of admission: 07/06/21 21:51 Discharge Date: 07/19/21 Primary care physician: Radha Negron MD Consults: 07/07/21 02:18 Consult to Dietitian, Adult Routine Comment: Reason For Exam: low BMI 07/07/21 07:17 Consult to Discharge Planning Routine Comment: Consult to Physical Therapy Evaluate & Treat Comment: Physician Instructions: Evaluate and Treat 07/07/21 16:48 Consult to Dietitian, Adult Routine Comment: Reason For Exam: poor skin perfusion, fragile skin. 07/09/21 15:18 Consult to Home Health Routine Comment: Reason For Exam: Home Health RN, P.T, O.T. 07/10/21 07:43 Consult to Discharge Planning Routine Comment: plan Tuesday discharge back to [facility] 07/10/21 21:22 Consult to Occupational Therapy Evaluate & Treat Comment: Physician Instructions: Evaluate and treat 07/10/21 21:23 Consult to Physical Therapy Evaluate & Treat Comment: Physician Instructions: Evaluate and Treat 07/12/21 10:37 Consult After Hours PICC Line RN Routine Comment: Discharge provider: Khadijah Frey MD Summary Hospital Course Discharge Diagnosis: Atrial fibrillation with RVR Acute systolic CHF Hypotension with shock Valvular heart disease Moderate malnutrition Rheumatoid arthritis Multiple Sclerosis Blood cultures negative. Patient was treated adequately for UTI with Cipro was she was in the hospital so this was discontinued at discharge and no Levaquin on discharge Hospital Course: This is an addendum to Dr. Aguilar's discharge summary. The patient had r ecurrent AFib with fluid overload thought to be related to recurrent AFib. She spontaneously converted back to sinus rhythm and was maintained on her same medications. She was diuresed with 2 doses of IV Lasix and had excellent diuresis. She is now on oral Lasix. She is stable on room air with improved breathing and clinical findings. Patient was treated for UTI. She was treated since July 12. She was on cephalosporin IV and then on the was switched to Cipro IV so she has had 3 days of this so we will discharge her home not on antibiotics. Previously when she was to be discharged she was going to be on Levaquin but this was discontinued by me because it is felt that her UTI has been adequately treated. She will follow-up with Dr. daniel Chowdary on the 22nd will follow up with Cardiology in 2 weeks. She will be discharged to home with her routine home health and her caregivers. 35 minutes was spent in discharge preparation, discussion with nursing, patient and documenting in her chart Status at Discharge Cognitive/behavioral status at discharge: at baseline, oriented Functional status at discharge: bed bound Exam Vital Signs (past 8 hours): - 07/19/21 04:43 07/19/21 08:00 Temperature 98.7 F 97.5 F L Pulse Rate 61 63 Respiratory Rate 17 16 Blood Pressure 110/68 125/78 Pulse Oximetry 93 96 Fraction of Inspired Oxygen 100 Oxygen Delivery Method Nasal Cannula Oxygen Flow Rate 0 Narrative Exam Narrative: Afebrile, vital signs are stable Patient is alert and oriented x3 is conversant and talkative. No increased work of breathing. Chest: Clear to auscultation with no wheezes rhonchi or crackles but decreased breath sounds bilateral bases suspect due to significant kyphosis Cor: Regular rate and rhythm in the 60s with unchanged murmur Abdomen: Positive bowel sounds, soft, nontender, nondistended Extremities: No edema, warm, well perfused, unchanged bony changes from RA Objective Labs Result Diagrams: 07/19/21 06:00 07/19/21 06:00 Labs: Laboratory Results - last 24 hr 07/19/21 07/19/21 07/19/21 06:00 06:00 06:00 WBC 11.4 H RBC 3.88 L Hgb 11.8 L Hct 36.3 MCV 93.5 MCH 30.3 MCHC 32.5 RDW 15.0 H Plt Count 146 L Neut % (Auto) 69.6 Lymph % (Auto) 19.2 L [place] % (Auto) 9.5 Eos % (Auto) 1.0 L Baso % (Auto) 0.7 Neut # (Auto) 7900 H Lymph # (Auto) 2200 [place] # (Auto) 1100 H Eos # (Auto) 100 Baso # (Auto) 100 Sodium 139 Potassium 3.9 Chloride 97 L Carbon Dioxide 39 H BUN 20 H Creatinine 0.44 L Estimated GFR > 60 BUN/Creatinine Ratio 45.5 H Glucose 94 Calcium 8.8 Magnesium 2.1 PFSH Medical History (Updated 07/07/21 @ 09:08 by Rodo Holloway MD) Hyperlipidemia Rheumatoid arthritis Social History household members: none Smoking Status: Never smoker alcohol intake: never Discharge Assessment & Plan Assessment and Plan Assessment: Atrial fibrillation with RVR Acute systolic CHF Hypotension with shock Valvular heart disease Moderate malnutrition Rheumatoid arthritis Multiple Sclerosis Blood cultures negative. Patient was treated adequately for UTI with Cipro was she was in the hospital so this was discontinued at discharge and no Levaquin on discharge Plan of Treatment: Discharge to home with home health and caregivers Follow-up with Dr. Lam on July 24 Follow-up with cardiology in 2 weeks Continue with new medications including Eliquis and amiodarone Continue with same outpatient medications No antibiotics at discharge due to successful treatment of UTI with antibiotics while in the hospital. Discharge Plan Discharge Plan Patient Disposition: Home Health Service Transfer to: [facility] Discharge orders & Medications Prescriptions: New Eliquis 5 mg Tablet 5 mg PO BID Qty: 60 1RF amiodarone 200 mg tablet 200 mg PO DAILY Qty: 30 3RF prednisone 20 mg Tablet See Rx Instructions .ROUTE .COMPLEX Qty: 33 0RF Rx Instructions: Take 3 tabs daily for 4 days, 2 tabs daily for 7 days, 1 tab daily for 7 days, then back to normal 2.5mg daily [place] Nasal 0.65 % Aerosol,[place] 1 spray intranasal PRN PRN (Reason: Congestion) Qty: 44 0RF Continued mupirocin 2 % ointment 1 applictn TOP BID Qty: 30 0RF lorazepam [Ativan] 0.5 MG tablet 0.5 mg PO HS Qty: 90 0RF Label Comments: pt states that she takes as needed folic acid 1 MG tablet 1 mg PO DAILY Qty: 0 0RF multivitamin [Multiple Vitamins] 1 EACH tablet 1 tab PO DAILY Qty: 0 0RF Label Comments: pt has not taken in a while and states she would like to take them again ascorbic acid (vitamin C) 500 MG tablet 1,000 mg PO DAILY Qty: 0 0RF (DME) incontinence supplies Qty: 150 0RF Dose Instruction: As directed Rx Instructions: As directed change up to 5 times daily (DME) wheelchair device See Dose Instructions .ROUTE .MEDSUPPLY Qty: 1 0RF Dose Instruction: As directed Rx Instructions: repair and replace as needed methotrexate sodium 2.5 mg tablet 12.5 mg PO .COMPLEX Qty: 90 3RF Rx Instructions: 12.5 mg PO Take 5 tablets in the morning and 5 in the afternoon once weekly; Tuesdays atorvastatin 40 mg tablet See Rx Instructions .ROUTE .COMPLEX Qty: 90 1RF Dose Instruction: TAKE 1 TABLET BY MOUTH DAILY Rx Instructions: TAKE 1 TABLET BY MOUTH DAILY hydroxychloroquine [Plaquenil] 200 mg tablet 200 mg PO BID Qty: 60 3RF potassium chloride 10 mEq capsule, extended release See Rx Instructions .ROUTE .COMPLEX Qty: 60 2RF Dose Instruction: TAKE 1 CAPSULE BY MOUTH TWICE DAILY Rx Instructions: TAKE 1 CAPSULE BY MOUTH TWICE DAILY (DME) david lift See Rx Instructions .Route .MEDSUPPLY Qty: 1 0RF Rx Instructions: As directed Discontinued prednisone 2.5 mg tablet See Rx Instructions .ROUTE .COMPLEX Qty: 90 2RF Dose Instruction: TKE TWO TABLETS BY MOUTH EVERY MORNING AND ONE TABLET BY MOUTH IN THE EVENING Rx Instructions: TKE TWO TABLETS BY MOUTH EVERY MORNING AND ONE TABLET BY MOUTH IN THE EVENING Follow up/Referrals: Radha Negron MD [Primary Care Provider] - 07/24/21 11:15 am Tara Cain MD [Physician] - 2 Weeks (Dr. Negron's office staff was notified today (07/16/21) at 2:40 PM that this provider requires a referral before appointment can be made. ) Diet/Activity/Treatments Diet: Diet as Tolerated Discharge Data Primary Care Provider: Radha Negron Quality VTE Deep Vein Thrombosis/Pulmonary Embolism Present on Admission: No
[2021-07-19] MEDS: MULTIVITAMIN 1 TABLET 1 TAB PO (08:31)
[2021-07-19] MEDS: DOCUSATE 100 MG CAPSULE PO (08:31)
[2021-07-19] MEDS: APIXABAN 5 MG TABLET PO (08:32)
[2021-07-19] MEDS: FUROSEMIDE 20 MG TABLET PO (08:32)
[2021-07-19] MEDS: FOLIC ACID 1 MG TABLET PO (08:32)
[2021-07-19] MEDS: ASCORBIC ACID 500 MG TABLET 1000 MG PO (08:33)
[2021-07-19] MEDS: predniSONE 20 MG TABLET 60 MG PO (08:33)
[2021-07-19] MEDS: HYDROXYCHLOROQUINE 200 MG TABLET PO (08:39)
[2021-07-19] MEDS: SODIUM CHLORIDE 0.9% FLUSH 10 ML IV (08:40)
[2021-07-19] MEDS: CIPROFLOXACIN 400 MG/200 ML PIGGYBACK 200 MG IV (09:44)
--- NOTE | 2021-07-19 10:35 | CM.DPC ---
DCP Discharge home with HH Per MD, pt now medically stable to d/c home today and had previously signed the F2F. Per RN, pt getting last dose of IV-Abx now and should be done by about 1130. ELAINE called [facility] and confirmed they still had referral and had already received signed F2F, orders and just need d/c summary. ELAINE faxed signed d/c summary to [facility] to review. ELAINE met bedside with pt and explained role and she confirms that she is happy to be discharging home today and she is still agreeable with [facility] and has not yet called [facility] to update on discharge yet and requests SW assist with coordinating BLS transport and [facility] in the home at d/c. ELAINE provided pt with copy of her Medicare Message and pt agreeable with d/c to home. ELAINE faxed d/c summary to pt's [facility]IR[facility] CM as well to review. ELAINE called [facility] after hours number [phone] and updated on pt d/c home today and they will coordinate with pt's CG to have a CG in the home when pt returns home today. ELAINE updated that likely will be home by 1230 and they will confirm with CG that someone will be present then. ELAINE called [facility] and scheduled BLS transport for 1200 and BLS form previously completed and ELAINE placed on chart for [facility] and made sure pt's updated POLST form original is in chart to go home with pt and already scanned into pt's EMR. ELAINE updated RN and belt sander stone. Plan: Patient to d/c home via [facility] at 1200 to home with [facility] CG in place for arrival at home and [facility] to open pt to service in the next couple days.
--- NOTE | 2021-07-19 12:17 | PC.NURSE ---
Day shift: Pt left unit via BLS at approx 1215. She has all personal belongings. scripts went electronic to Pt's pharmacy. Paperwork is signed and all questions answered. PICC line removed prior to d/c.
== END 2021-07-19 12:19 | disposition home health service (06) | DRG 308 ==
LOC: ED 21:45 → AC 21:52 → ICU 07-09 16:58 → AC 07-17 14:26
PROVIDERS: Family Medicine; Internal Medicine; Internal Medicine Critical Care Medicine; Internal Medicine Pulmonary Disease; Admitting Provider Family Medicine; Emergency Provider Emergency Medicine; PCP Family Medicine; Referring Provider Emergency Medicine; Visit Provider Family Medicine
DX: I48.0 Paroxysmal atrial fibrillation (principal); I50.21 Acute systolic (congestive) heart failure; R57.8 Other shock; E44.0 Moderate protein-calorie malnutrition; N39.0 Urinary tract infection, site not specified; I44.7 Left bundle-branch block, unspecified; G35 Multiple sclerosis; M06.9 Rheumatoid arthritis, unspecified; I35.0 Nonrheumatic aortic (valve) stenosis; B95.2 Enterococcus as the cause of diseases classified elsewhere; B96.1 Klebsiella pneumoniae [K. pneumoniae] as the cause of diseases classified elsewhere; E87.6 Hypokalemia; E78.5 Hyperlipidemia, unspecified; Z20.822 Contact with and (suspected) exposure to COVID-19; Z66 Do not resuscitate; Z68.27 Body mass index [BMI] 27.0-27.9, adult
CPT/HCPCS: 36415; 36569; 36592; 71045; 74022; 80048; 80053; 81001; 82550; 83690; 83735; 83880; 84145; 84439; 84443; 84484; 85025; 85027; 85610; 85730; 87040; 87077; 87086; 87147; 87150; 87186; 87205; 87635; 93005; 93010; 93306; 93307; 94660; 94760; 96374; 99222; 99232; 99233; 99284; 99291; C9803; C9113; J0282; J0692; J0744; J1160; J1720; J1940; J2060; J2270; J8610

== ENCOUNTER → 2021-08-01 10:35 | Outpatient (CLI) | payer OTHER, MEDICAID, SELFPAY ==
[2021-07-06 21:59] VITALS: BMI 27.1
[2021-07-10 23:00] VITALS: PULSE 59; RESP 15; O2SAT 100
[2021-08-01 11:27] LABS: BUN Creatinine Ratio 46.3 (6-22); Blood Urea Nitrogen 19 mg/dL (7-17); Calcium 8.7 mg/dL (8.4-10.2); Carbon Dioxide 30 mmol/L (22-32); Chloride 107 mmol/L (98-107); Estimated Glomerular Filt Rate > 60 mL/min (>60); Glucose 88 mg/dL (80-110); HEMOLYSIS < 15 (0-50); Potassium 4.5 mmol/L (3.4-5.1); Sodium 140 mmol/L (137-145)
== END ==
PROVIDERS: PCP Family Medicine; Referring Provider Family Medicine; Visit Provider Family Medicine
DX: E87.6 Hypokalemia (principal); N39.0 Urinary tract infection, site not specified
CPT/HCPCS: 36415; 80048

== ENCOUNTER 2021-10-21 13:25 | Inpatient (IN) | payer OTHER, MEDICAID, SELFPAY ==
[2021-07-06 21:59] VITALS: BMI 27.1
[2021-07-10 23:00] VITALS: PULSE 59; RESP 15; O2SAT 100
[2021-10-21] VITALS (26 sets, daily range): BP systolic 71–142; BP diastolic 39–76; PULSE 66–98; RESP 12–36; TEMP 36.3; O2SAT 83–100
--- NOTE | 2021-10-21 13:24 | DI.RAD.S_ITS ---
PROCEDURE: XR CHEST 1V INDICATIONS: shortness of breath TECHNIQUE: One view of the chest was acquired. COMPARISON: [facility], CT, CT CHEST W CON, 11/03/2020, 16:56. [facility], CR, XR CHEST 1V, 07/12/2021, 17:00. [facility], CR, XR CHEST 1V, 07/13/2021, 7:58. FINDINGS: Surgical changes and devices: None. Lungs and pleura: Mild generalized interstitial prominence can be seen. Low lung volumes are noted. This causes a crowded appearance to the lung markings and limits evaluation. Mediastinum: Mediastinal contours appear normal. Heart size is mildly enlarged. There is a moderate hiatal hernia. Bones and chest wall: No suspicious bony lesions. Age-appropriate bony degenerative changes are seen. Levoconvex scoliosis is seen. Overlying soft tissues appear unremarkable. IMPRESSION: Mild cardiomegaly and generalized interstitial prominence. Please correlate with patient presentation, physical examination findings, and laboratory values for congestive heart failure. Incidental note is made of: Moderate hiatal hernia Scoliosis Dictated by: rAik Tyson M.D. on 10/21/2021 at 13:05 Approved by: Arik Tyson M.D. on 10/21/2021 at 13:06
[2021-10-21 13:50] LABS: Basophils Absolute Auto 100 /uL (0-100); Eosinophils Absolute Auto 300 /uL (0-450); Hemoglobin 12.5 g/dL (12.0-16.0); Mean Corpuscular Volume 95.6 fL (80-100)
[2021-10-21 13:50] LABS: COVID19 -Nasal RAPID Negative (Negative)
--- NOTE | 2021-10-21 13:51 | ED_ITS ---
HPI - SOB/Dyspnea General Chief Complaint: Shortness of Breath/Dyspnea Stated Complaint: SOB Time Seen by Provider: 10/21/21 13:50 Source: patient and EMS Mode of arrival: EMS History of Present Illness HPI Narrative: Patient is a 76-year-old female history of MS recently hospitalized July 06 through July 19 for AFib with RVR, presenting today with increasing shortness of breath. She received a DuoNeb ED with EMS and actually seems to be improved. O2 sat with EMS was about 90% on room air after DuoNeb was 98%. Patient says that she has been of breath but can not really tell me how long definitely worse today. She is wheelchair-bound and has caregivers at home secondary to multiple sclerosis. She says that she was able to sleep well last night. She has not had any fever chills or cough. She denies any orthopnea. She can not tell if she has any worsening shortness of breath with exertion. Related Data Home Medications Medication Instructions Recorded Confirmed ascorbic acid (vitamin C) 500 mg 1,000 mg PO DAILY ##0 02/10/16 07/24/21 tablet folic acid 1 mg tablet 1 mg PO DAILY ##0 02/10/16 07/24/21 lorazepam 0.5 mg tablet (Ativan) 0.5 mg PO HS #90 tabs 02/10/16 07/24/21 multivitamin (Multiple Vitamins 1 tab PO DAILY ##0 02/10/16 07/24/21 tablet) Previous Rx's Medication Instructions Recorded mupirocin 2 % topical ointment 1 applictn topical BID #30 grams 04/06/18 incontinence supplies #150 ea 05/05/18 wheelchair #1 ea 07/24/18 methotrexate sodium 2.5 mg tablet 12.5 mg PO .COMPLEX #90 tabs 12/10/20 atorvastatin 40 mg tablet See Rx Instructions .Route 12/15/20 .COMPLEX #90 tabs david lift #1 ea 04/14/21 amiodarone 200 mg tablet 200 mg PO DAILY #30 tabs 07/19/21 purewick female catheter #1 ea 08/03/21 purewick replacement canisters #1 ea 08/03/21 purewick suction canister #1 ea 08/03/21 apixaban 5 mg tablet (Eliquis) 5 mg PO BID #60 tabs 08/07/21 potassium chloride 10 mEq See Rx Instructions .Route 08/11/21 capsule,extended release .COMPLEX #60 caps hydroxychloroquine 200 mg tablet 200 mg PO BID #180 tabs 10/16/21 (Plaquenil) prednisone 2.5 mg tablet See Rx Instructions PO BID #90 tabs 10/20/21 Allergies Allergy/AdvReac Type Severity Reaction Status Date / Time NSAIDS (Non-Steroidal Allergy Mild Verified 07/24/21 10:58 Anti-Inflamma [NSAIDS (NON-STEROIDAL ANTI-INFLAMMA] Review of Systems Review of Systems Narrative: GENERAL: Denies chills, fatigue, malaise, fever, sweats, travel HEENT: Denies sinus pain, ear pain, sore throat, difficulty swallowing, neck pain RESPIRATORY: See HPI CARDIOVASCULAR: Denies chest pain, palpitations, orthopnea, edema GASTROINTESTINAL: Denies nausea, vomiting, abdominal pain, diarrhea, constipation, melena. : Denies dysuria, frequency, incontinence, hematuria, urinary retention, flank pain. MUSCULOSKELETAL: Denies weakness, joint pain, or bony pain SKIN: No rash, no erythema, no pruritus NEUROLOGIC: Denies weakness, dizziness, headache, numbness, change in speech, confusion PSYCHIATRIC: No concerning psychosocial issues. 12 point review of systems is negative except for those stated above and HPI Patient History Medical History Hyperlipidemia Rheumatoid arthritis Social History household members: none Smoking Status: Never smoker alcohol intake: never Smoking Status: Never smoker Substance Use Type: does not use Exam Initial Vital Signs Initial Vital Signs: Vital Signs Temperature 97.4 F L 10/21/21 13:24 Pulse Rate 98 H 10/21/21 13:24 Respiratory Rate 24 10/21/21 13:24 Blood Pressure 142/76 H 10/21/21 13:24 Pulse Oximetry 97 10/21/21 13:24 Oxygen Delivery Method 10/21/21 13:24 GENERAL: Alert 76-year-old female and in no acute distress. HEENT: Head atraumatic,EOMI, pupils reactive, face symmetric, moist mucous membranes CARDIOVASCULAR: Regular rate and rhythm without murmurs, rubs or gallops. RESPIRATORY: No conversational dyspnea slight expiratory wheeze ABDOMEN: Soft, nontender. Normoactive bowel sounds all 4 quadrants. No guarding or rebound. EXTREMITIES: Normal range of motion, no clubbing or edema. Neurovascularly intact NEUROLOGICAL: Alert and oriented x4 SKIN: Warm, dry, no laceration, no petechiae, no rashes or lesions. Course Orders Ordered: ED Orders 10/21/21 12:41 BNP [NT-proBNP (BNP-Adult 18+)] Stat Complete Blood Count AUTO DIFF Stat Comprehensive Metabolic Panel Stat Lactate (Lactic Acid) Stat Procalcitonin Stat Troponin & CK Cardiac Panel Stat 10/21/21 13:24 XR chest 1V Stat EKG-12 Lead Stat Measure peak expiratory flow ONCE RT Consult Eval and Treat Now 10/21/21 13:33 COVID19 -Nasal RAPID/Pre-Proc Stat 10/21/21 14:45 Trop I [Troponin I] Stat Discontinued Medications Furosemide (Furosemide 40 Mg/4 Ml Vial) 40 mg IV NOW ONE Stop: 10/21/21 15:54 Last Admin: 10/21/21 16:18 Dose: 40 mg Documented By: DAGO Methylprednisolone (Methylprednisolone 125 Mg/2 Ml Vial) 125 mg IV NOW ONE Stop: 10/21/21 15:54 Last Admin: 10/21/21 16:18 Dose: 125 mg Documented By: DAGO Vital Signs Vital signs: Vital Signs - 8 hr 10/21/21 13:24 10/21/21 15:50 10/21/21 15:20 Temperature 97.4 F L Pulse Rate 98 H 95 H Respiratory Rate 24 32 H Blood Pressure 142/76 H Pulse Oximetry 97 87 L 92 Oxygen Delivery Method Room Air Room Air 10/21/21 15:30 10/21/21 16:00 10/21/21 16:30 Temperature Pulse Rate 93 H 87 92 H Respiratory Rate 27 H 22 22 Blood Pressure Pulse Oximetry 91 96 98 Oxygen Delivery Method MDM - SOB/Dyspnea Lab Data Result diagrams: 10/21/21 12:41 10/21/21 12:41 Labs: Lab Results 10/21/21 10/21/21 10/21/21 Range/Units 12:41 12:41 12:41 WBC 15.3 H (4.5-11.0) X10^3/uL RBC 4.01 (4.0-5.2) X10^6/uL Hgb 12.5 (12.0-16.0) g/dL Hct 38.3 (36-46) % MCV 95.6 (80-100) fL MCH 31.2 (26-34) PG MCHC 32.7 (30-36) % RDW 14.6 (11.6-14.8) % Plt Count 146 L (150-400) X10^3/uL Neut % (Auto) 70.0 (50-75) % Lymph % (Auto) 22.8 L (25-40) % Moody % (Auto) 4.3 (3-14) % Eos % (Auto) 2.0 (2-4) % Baso % (Auto) 0.9 (0-2) % Neut # (Auto) 69272 H (9391-3839) /uL Lymph # (Auto) 3500 (2291-9824) /uL Moody # (Auto) 700 (0-900) /uL Eos # (Auto) 300 (0-450) /uL Baso # (Auto) 100 (0-100) /uL Sodium 140 (137-145) mmol/L Potassium 3.0 L (3.4-5.1) mmol/L Chloride 105 (98-107) mmol/L Carbon Dioxide 29 (22-32) mmol/L BUN 11 (7-17) mg/dL Creatinine 0.42 L (0.52-1.04) mg/dL Estimated GFR > 60 (>60) mL/min BUN/Creatinine Ratio 26.2 H (6-22) Glucose 170 H (80-110) mg/dL Lactate 2.0 (0.7-2.1) mmol/L Calcium 8.5 (8.4-10.2) mg/dL Total Bilirubin 0.4 (0.2-1.3) mg/dL AST 30 (14-36) IU/L ALT 18 (<35) IU/L Alkaline Phosphatase 38 (38-126) U/L Total Creatine Kinase (30-135) U/L CK-MB (CK-2) CK-MB (CK-2) Rel Index Troponin I (0.01-0.034) ng/mL NT-Pro-B Natriuret Pep (<450) pg/mL Total Protein 6.0 L (6.3-8.2) g/dL Albumin 3.6 (3.5-5.0) g/dL Globulin 2.4 (1.7-4.1) g/dL Albumin/Globulin Ratio 1.5 (1.0-2.8) Procalcitonin (<0.5) ng/mL SARS-CoV-2 (PCR) (Negative) 10/21/21 10/21/21 10/21/21 Range/Units 12:41 12:41 13:33 WBC (4.5-11.0) X10^3/uL RBC (4.0-5.2) X10^6/uL Hgb (12.0-16.0) g/dL Hct (36-46) % MCV (80-100) fL MCH (26-34) PG MCHC (30-36) % RDW (11.6-14.8) % Plt Count (150-400) X10^3/uL Neut % (Auto) (50-75) % Lymph % (Auto) (25-40) % Moody % (Auto) (3-14) % Eos % (Auto) (2-4) % Baso % (Auto) (0-2) % Neut # (Auto) (4359-4567) /uL Lymph # (Auto) (6782-6097) /uL Moody # (Auto) (0-900) /uL Eos # (Auto) (0-450) /uL Baso # (Auto) (0-100) /uL Sodium (137-145) mmol/L Potassium (3.4-5.1) mmol/L Chloride (98-107) mmol/L Carbon Dioxide (22-32) mmol/L BUN (7-17) mg/dL Creatinine (0.52-1.04) mg/dL Estimated GFR (>60) mL/min BUN/Creatinine Ratio (6-22) Glucose (80-110) mg/dL Lactate (0.7-2.1) mmol/L Calcium (8.4-10.2) mg/dL Total Bilirubin (0.2-1.3) mg/dL AST (14-36) IU/L ALT (<35) IU/L Alkaline Phosphatase (38-126) U/L Total Creatine Kinase 53 (30-135) U/L CK-MB (CK-2) TNP CK-MB (CK-2) Rel Index TNP Troponin I 0.088 H (0.01-0.034) ng/mL NT-Pro-B Natriuret Pep 2610 H (<450) pg/mL Total Protein (6.3-8.2) g/dL Albumin (3.5-5.0) g/dL Globulin (1.7-4.1) g/dL Albumin/Globulin Ratio (1.0-2.8) Procalcitonin 0.06 (<0.5) ng/mL SARS-CoV-2 (PCR) Negative (Negative) 10/21/21 Range/Units 14:45 WBC (4.5-11.0) X10^3/uL RBC (4.0-5.2) X10^6/uL Hgb (12.0-16.0) g/dL Hct (36-46) % MCV (80-100) fL MCH (26-34) PG MCHC (30-36) % RDW (11.6-14.8) % Plt Count (150-400) X10^3/uL Neut % (Auto) (50-75) % Lymph % (Auto) (25-40) % Moody % (Auto) (3-14) % Eos % (Auto) (2-4) % Baso % (Auto) (0-2) % Neut # (Auto) (4707-5187) /uL Lymph # (Auto) (0812-5873) /uL Moody # (Auto) (0-900) /uL Eos # (Auto) (0-450) /uL Baso # (Auto) (0-100) /uL Sodium (137-145) mmol/L Potassium (3.4-5.1) mmol/L Chloride (98-107) mmol/L Carbon Dioxide (22-32) mmol/L BUN (7-17) mg/dL Creatinine (0.52-1.04) mg/dL Estimated GFR (>60) mL/min BUN/Creatinine Ratio (6-22) Glucose (80-110) mg/dL Lactate (0.7-2.1) mmol/L Calcium (8.4-10.2) mg/dL Total Bilirubin (0.2-1.3) mg/dL AST (14-36) IU/L ALT (<35) IU/L Alkaline Phosphatase (38-126) U/L Total Creatine Kinase (30-135) U/L CK-MB (CK-2) CK-MB (CK-2) Rel Index Troponin I 0.103 H (0.01-0.034) ng/mL NT-Pro-B Natriuret Pep (<450) pg/mL Total Protein (6.3-8.2) g/dL Albumin (3.5-5.0) g/dL Globulin (1.7-4.1) g/dL Albumin/Globulin Ratio (1.0-2.8) Procalcitonin (<0.5) ng/mL SARS-CoV-2 (PCR) (Negative) Imaging Data Chest x-ray: Radiologist's Impression: [address] [address] XRay Report Signed Patient: Juliana Angel MR#: [id number] : 1945 Acct:[id number] Age/Sex: 76 / F Date of Service: 10/21/21 Loc: ED Accession Number: [id number] ?? Procedure: XR chest 1V Ordering Provider: Mehnaz Akbar D.O. PROCEDURE:? XR CHEST 1V ? INDICATIONS:? shortness of breath ? TECHNIQUE:? One view of the chest was acquired.? ? COMPARISON:? [facility], CT, CT CHEST W CON, 11/03/2020, 16:56.? [facility], CR, XR CHEST 1V, 07/12/2021, 17:00.? [facility], CR, XR CHEST 1V, 07/13/2021, 7:58. ? FINDINGS:? ? Surgical changes and devices:? None.? ? Lungs and pleura:? Mild generalized interstitial prominence can be seen. Low lung volumes are noted. This causes a crowded appearance to the lung markings and limits evaluation.? ? Mediastinum:? Mediastinal contours appear normal.? Heart size is mildly enlarged.? There is a moderate hiatal hernia. ? Bones and chest wall:? No suspicious bony lesions.? Age-appropriate bony degenerative changes are seen.? Levoconvex scoliosis is seen.? Overlying soft tissues appear unremarkable.? ? ? IMPRESSION:? Mild cardiomegaly and generalized interstitial prominence. Please correlate with patient presentation, physical examination findings, and laboratory values for congestive heart failure. ? Incidental note is made of: Moderate hiatal hernia Scoliosis ? Dictated by: Arik Tyson M.D. on 10/21/2021 at 13:05 ? ? ECG Data Interpretation: EKG 1. Sinus rhythm rate [address] changes p.r. interval 162 QRS 140 QTC 484 previous EKG did show AFib with RVR EKG 2. Sinus rhythm rate 96 [place] interval 212 QRS on 01/[address] changes MDM Narrative Medical decision making narrative: Patient is found to be hypoxic on room air down to 80% actually. She was given DuoNeb with EMS which improved. BNP is minimally elevated however it was previo usly much high or chest x-ray does show some fluid overload. She is given a dose of Lasix here in the ED. She has absolutely no chest pain. It is unlikely pulmonary embolism she is on Eliquis at this time I see no need for PE study. Patient does have mild leukocytosis but no fever and no elevated procalcitonin. Unlikely to be an infectious. Minimal elevation in troponins not quite positive but indeterminate and racing. Likely secondary to stress on her heart. She had an echocardiogram back in July. Dr. Negron accepts patient Discharge Plan Departure Patient Disposition: Admitted as Observation Clinical Impression: Acute exacerbation of CHF (congestive heart failure) Admit Date/Time: 10/21/21 16:44 Admit Provider: Radha Negron
[2021-10-21 13:53] LABS: Add Manual Diff / Slide Review NO; Basophils Percent Auto 0.9 % (0-2); Hematocrit 38.3 % (36-46); Lymphocytes Absolute Auto 3500 /uL (1100-4500); Lymphocytes Percent Auto 22.8 % (25-40); Mean Corpuscular HGB Conc 32.7 % (30-36); Mean Corpuscular Hemoglobin 31.2 PG (26-34); Monocytes Absolute Auto 700 /uL (0-900); Monocytes Percent Auto 4.3 % (3-14); Neutrophils Absolute Auto 10700 /uL (1500-7000); Platelet Count 146 X10^3/uL (150-400); Red Blood Cell Count 4.01 X10^6/uL (4.0-5.2); Red Cell Distribution Width 14.6 % (11.6-14.8); White Blood Cell Count 15.3 X10^3/uL (4.5-11.0)
[2021-10-21 14:03] LABS: Alanine Aminotransferase 18 IU/L (<35); Albumin 3.6 g/dL (3.5-5.0); Albumin Globulin Ratio 1.5 (1.0-2.8); Alkaline Phosphatase 38 U/L (38-126); Aspartate Aminotransferase 30 IU/L (14-36); BUN Creatinine Ratio 26.2 (6-22); Bilirubin Total 0.4 mg/dL (0.2-1.3); Blood Urea Nitrogen 11 mg/dL (7-17); Calcium 8.5 mg/dL (8.4-10.2); Carbon Dioxide 29 mmol/L (22-32); Chloride 105 mmol/L (98-107); Estimated Glomerular Filt Rate > 60 mL/min (>60); Globulin 2.4 g/dL (1.7-4.1); Glucose 170 mg/dL (80-110); HEMOLYSIS < 15 (0-50); Sodium 140 mmol/L (137-145)
[2021-10-21 14:12] LABS: Creatine Kinase 53 U/L (30-135)
[2021-10-21 14:23] LABS: NT-proBNP (BNP-Adult 18+) 2610 pg/mL (<450); Troponin I 0.088 ng/mL (0.01-0.034)
[2021-10-21 15:21] LABS: Troponin I 0.103 ng/mL (0.01-0.034)
[2021-10-21] MEDS: ONDANSETRON 4 MG/2 ML INJ (15:50)
--- NOTE | 2021-10-21 15:51 | PC.NURSE ---
1550 pt trial on room air per MD, spo2 decreased to 87% with pt c/o nausea, replaced nc at 2lpm md notified
[2021-10-21] MEDS: FUROSEMIDE 40 MG/4 ML VIAL IV (16:18)
[2021-10-21] MEDS: methylPREDNISolone 125 MG/2 ML VIAL IV (16:18)
[2021-10-21 16:36] LABS: Procalcitonin 0.06 ng/mL (<0.5)
--- NOTE | 2021-10-21 16:54 | P.HP_ITS ---
History of Present Illness History of Present Illness Date Patient Seen: 10/21/21 Time Patient Seen: 16:30 Chief complaint: SOB Narrative: Pt is a 76yo woman with RA, MS, osteoporosis, severe kyphoscoliosis who is wheelchair bound who presented with SOB. The pt reports that she was in her usual state of health, until this morning when she woke feeling SOB. This seemed to get progressively worse throughout the morning. Her daughter came to visit with her caregiver, and noted that the pt seemed to be panting. EMS was contacted, and the pt was brought to the ED for further evaluation. The pt denies any recent cough, fever, chills, chest pain, significant wheezing, palpitations, or worsening LE edema. She really has no additional complaints other than feeling she was SOB and panting. EMS reportedly gave the pt a nebulizer treatment, with some improvement in her symptoms. In the ED, lab work revealed a minimally elevated troponin with normal EKG. BNP appeared to be around baseline for the pt. WBC count was elevated to 15. CXR showed cardiomegaly but no evidence of pneumonia. She was hypoxic to the upper 80s, requiring 3L of NC O2. Patient History Medical History Hyperlipidemia Rheumatoid arthritis Family & Social History Social History: household members none Tobacco & Substance use: Smoking Status Never smoker alcohol intake never Substance Use Type does not use Meds Home Medications and Allergies Home Medications Medication Instructions Recorded Confirmed Type ascorbic acid (vitamin C) 500 mg 1,000 mg PO DAILY ##0 02/10/16 07/24/21 History tablet folic acid 1 mg tablet 1 mg PO DAILY ##0 02/10/16 07/24/21 History lorazepam 0.5 mg tablet (Ativan) 0.5 mg PO HS #90 tabs 02/10/16 07/24/21 History multivitamin (Multiple Vitamins 1 tab PO DAILY ##0 02/10/16 07/24/21 History tablet) mupirocin 2 % topical ointment 1 applictn topical BID #30 grams 04/06/18 07/24/21 Rx incontinence supplies #150 ea 05/05/18 07/24/21 Rx wheelchair #1 ea 07/24/18 07/24/21 Rx methotrexate sodium 2.5 mg tablet 12.5 mg PO .COMPLEX #90 tabs 12/10/20 07/24/21 Rx atorvastatin 40 mg tablet See Rx Instructions .Route 12/15/20 07/24/21 Rx .COMPLEX #90 tabs david lift #1 ea 04/14/21 07/24/21 Rx amiodarone 200 mg tablet 200 mg PO DAILY #30 tabs 07/19/21 07/24/21 Rx purewick female catheter #1 ea 08/03/21 Rx purewick replacement canisters #1 ea 08/03/21 Rx purewick suction canister #1 ea 08/03/21 Rx apixaban 5 mg tablet (Eliquis) 5 mg PO BID #60 tabs 08/07/21 Rx potassium chloride 10 mEq See Rx Instructions .Route 08/11/21 Rx capsule,extended release .COMPLEX #60 caps hydroxychloroquine 200 mg tablet 200 mg PO BID #180 tabs 10/16/21 Rx (Plaquenil) prednisone 2.5 mg tablet See Rx Instructions PO BID #90 tabs 10/20/21 Rx Allergies Allergy/AdvReac Type Severity Reaction Status Date / Time NSAIDS (Non-Steroidal Allergy Mild Verified 07/24/21 10:58 Anti-Inflamma [NSAIDS (NON-STEROIDAL ANTI-INFLAMMA] Exam Vital Signs (past 8 hours): - 10/21/21 13:24 10/21/21 15:50 Temperature 97.4 F L Pulse Rate 98 H Respiratory Rate 24 Blood Pressure 142/76 H Pulse Oximetry 97 87 L Oxygen Delivery Method Room Air Room Air Oxygen Delivery Method Room Air Narrative Exam Narrative: GEN - alert, cooperative and no distress, speaking easily in complete sentences HEENT - normocephalic and atraumatic, sclera white, moist mucus membranes NECK - FROM, no adenopathy HEART - RRR, S1, S2 normal, no S3 or S4, grade 3/6 systolic murmur LUNGS - symmetric chest rise, no accessory muscles, mild wheeze bilateral upper lobes, decreased air movement lower lobes, no crackles ABD - flat, nondistended, normal bowel sounds, soft, nontender EXT - no cyanosis, clubbing or edema Objective Labs Result Diagrams: 10/21/21 12:41 10/21/21 12:41 Labs: Laboratory Results - last 24 hr 10/21/21 10/21/21 10/21/21 12:41 12:41 12:41 WBC 15.3 H RBC 4.01 Hgb 12.5 Hct 38.3 MCV 95.6 MCH 31.2 MCHC 32.7 RDW 14.6 Plt Count 146 L Neut % (Auto) 70.0 Lymph % (Auto) 22.8 L [place] % (Auto) 4.3 Eos % (Auto) 2.0 Baso % (Auto) 0.9 Neut # (Auto) 90641 H Lymph # (Auto) 3500 [place] # (Auto) 700 Eos # (Auto) 300 Baso # (Auto) 100 Sodium 140 Potassium 3.0 L Chloride 105 Carbon Dioxide 29 BUN 11 Creatinine 0.42 L Estimated GFR > 60 BUN/Creatinine Ratio 26.2 H Glucose 170 H Lactate 2.0 Calcium 8.5 Total Bilirubin 0.4 AST 30 ALT 18 Alkaline Phosphatase 38 Total Creatine Kinase CK-MB (CK-2) CK-MB (CK-2) Rel Index Troponin I NT-Pro-B Natriuret Pep Total Protein 6.0 L Albumin 3.6 Globulin 2.4 Albumin/Globulin Ratio 1.5 Procalcitonin SARS-CoV-2 (PCR) 10/21/21 10/21/21 10/21/21 12:41 12:41 13:33 WBC RBC Hgb Hct MCV MCH MCHC RDW Plt Count Neut % (Auto) Lymph % (Auto) [place] % (Auto) Eos % (Auto) Baso % (Auto) Neut # (Auto) Lymph # (Auto) [place] # (Auto) Eos # (Auto) Baso # (Auto) Sodium Potassium Chloride Carbon Dioxide BUN Creatinine Estimated GFR BUN/Creatinine Ratio Glucose Lactate Calcium Total Bilirubin AST ALT Alkaline Phosphatase Total Creatine Kinase 53 CK-MB (CK-2) TNP CK-MB (CK-2) Rel Index TNP Troponin I 0.088 H NT-Pro-B Natriuret Pep 2610 H Total Protein Albumin Globulin Albumin/Globulin Ratio Procalcitonin 0.06 SARS-CoV-2 (PCR) Negative 10/21/21 14:45 WBC RBC Hgb Hct MCV MCH MCHC RDW Plt Count Neut % (Auto) Lymph % (Auto) [place] % (Auto) Eos % (Auto) Baso % (Auto) Neut # (Auto) Lymph # (Auto) [place] # (Auto) Eos # (Auto) Baso # (Auto) Sodium Potassium Chloride Carbon Dioxide BUN Creatinine Estimated GFR BUN/Creatinine Ratio Glucose Lactate Calcium Total Bilirubin AST ALT Alkaline Phosphatase Total Creatine Kinase CK-MB (CK-2) CK-MB (CK-2) Rel Index Troponin I 0.103 H NT-Pro-B Natriuret Pep Total Protein Albumin Globulin Albumin/Globulin Ratio Procalcitonin SARS-CoV-2 (PCR) Assessment & Plan Assessment & Plan narrative: Pt is a 76yo woman with RA, MS, osteoporosis, severe kyphoscoliosis who is wheelchair bound who presented with SOB, found to be hypoxic. 1) Hypoxia: Multiple potential etiologies. Pt does have mild wheeze on exam, and responded to nebulizer treatment from EMS. Pt does not have diagnosis of COPD/asthma, but question contribution. Will continue IV Solumedrol and nebulizer treatments for now. BNP stable from usual baseline, CXR does show cardiomegaly and appears more consistent with CHF. Troponin mildly elevated, but no EKG changes. Echo completed in July showed significant systolic failure with EF of 30-35%, however this was completed when the pt was in atrial fibrillation. Will repeat Echo and continue gentle diuresis with IV Lasix for now. WBC count elevated, however no symptoms of pneumonia, and exam/imaging not consistent. Will hold antibiotics for now, with low threshold to start in the future. Continue supplemental oxygen support. 1) Atrial fibrillation with rapid ventricular response with hypotension: S/P Cardioversion at [facility] on 07/09. No in sinus rhythm, mildly bradycardic. - Continue Amiodarone 200mg daily - Blood pressure would not tolerate beta-edilson or calcium channel edilson - Continue Eliquis life-long 2) Elevated troponin: Low suspicion for ACS without symptoms other than SOB, and no EKG changes. Will continue to trend. 3) Atrial fibrillation, aortic and mitral stenosis: Stable. Continue home medications. 4) Rheumatoid arthritis: Stable. Continue with home medications 5) Multiple sclerosis: Stable FEN: Cardiac diet Code: DNR DVT ppx: On anticoagulation Dispo: Pending above work-up, improvement in oxygen requirements. Anticipate 2 midnights. Time Spent With Patient Critical Care time: I spent a total of [] minutes of critical care time on this patient's care today; this time is exclusive of procedural time.
--- NOTE | 2021-10-21 23:52 | DI.ECHO.S_ITS ---
[facility] +---------+ : : [address] : [place] : : : : [address] : : : : Phone: [phone]---------+ Echocardiogram Report + + :Name: CHINMAY SIMS Study Date: 10/22/2021 Height: 62 in : :[facility] ReadingLocation: Weight: 140 lb : : Gender: Female BSA: 1.6 m2 : :: 1945 Age: 76 yrs BP: 106/54 mmHg: :Reason For Study: HYPOXIA, ELEVATED BNP : :Ordering Physician: BRETT, : :VIVIAN Performed By: Mayte Sanchez : :Referring: VIVIAN WEST : + + Interpretation Summary The left ventricle is normal in size. Left ventricular ejection fraction is estimated to be 50 +/- 5%. There has been no significant change in LVEF since the previous exam. MV E/A: 0.94 Med Peak E' Santi: 3.0 cm/sec E/E' med: 37.5, suggestive of elevated LV filling pressure. The right ventricle is mildly dilated. The right ventricular systolic function is normal. The mitral valve mean gradient is 3 mmHg. Previous mean gradient of 5.2 on 07/07/2021 exam. There is a restriction of mitral leaflets excursion however no critical mitral stenosis seen. Overall mild to moderate mitral stenosis. Aortic valve appears to be heavily calcified. Its not well visualized. Severely reduced leaflet mobility. The peak aortic velocity is 2.2 m/sec. On July 15, 2021 peak aortic valve velocity 2.39 m/s and in July 07, 2021 3.2 m/s. The calculated aortic valve area is 1.2 cm2. Overall moderate to severe aortic stenosis (paradoxically low gradient). If clinical suspicion for worsening aortic stenosis, consider CT aortic valve calcium score and repeat PRATIBHA to have better visualization of aortic valve. There is mild to moderate aortic regurgitation. Compared to the prior echo study, there has been an increase in the severity of aortic regurgitation. There is mild tricuspid regurgitation. Compared to the prior echo exam, there has been a decrease in TR severity. The right ventricular systolic pressure is estimated to be at least 29 mmHg based on an estimated right atrial pressure of 3 mm Hg. Severe atherosclerotic plaque(s) in the ascending aorta. Procedure: A two-dimensional transthoracic echocardiogram with color flow and Doppler was performed. The study quality was technically difficult. Comparison is made with the echocardiogram of 07/15/2021, 07/07/2021. The patient was in sinus rhythm with heart rates between 65-81 bpm during the exam. The patient had occasional PVCs during the exam. The patient had a bundle branch block rhythm during the exam. Left Ventricle: The left ventricle is normal in size. There is mild concentric left ventricular hypertrophy. There is no thrombus. Left ventricular ejection fraction is estimated to be 50 +/- 5%. There has been no significant change since the previous exam. There are no obvious focal wall motion abnormalities noted but poor endocardial definition reduces the sensitivity for the detection of such. MV E/A: 0.94 Med Peak E' Santi: 3.0 cm/sec E/E' med: 37.5. Right Ventricle: The right ventricle is mildly dilated. The right ventricular systolic function is normal. Atria: The left atrium is severely dilated. The left atrium has remained unchanged in size since the prior echo exam. The right atrium is mildly dilated. There is no Doppler evidence for an interatrial shunt. Mitral Valve: There is severe mitral annular calcification. The mitral valve leaflets are moderately calcified. There is a restriction of mitral leaflets excursion however no critical mitral stenosis seen. Overall mild to moderate mitral stenosis. The mitral valve mean gradient is 3 mmHg. Previous mean gradient of 5.2 on 07/07/2021 exam. There is mild mitral regurgitation. Aortic Valve: There is severely reduced leaflet mobility. Aortic valve appears to be heavily calcified. Its not well visualized. Severely reduced leaflet mobility. The peak aortic velocity is 2.2 m/sec. The peak aortic velocity on the previous exam was 3.2 m/sec. The aortic valve mean gradient is 11 mmHg. On July 15, 2021 peak aortic valve velocity 2.39 m/s and in July 07, 2021 3.2 m/s. The calculated aortic valve area is 1.2 cm2. There is mild to moderate aortic regurgitation. Compared to the prior echo study, there has been an increase in the severity of aortic regurgitation. Tricuspid Valve: The tricuspid valve is normal in structure and function. There is mild tricuspid regurgitation. The right ventricular systolic pressure is estimated to be at least 29 mmHg based on an estimated right atrial pressure of 3 mm Hg. Compared to the prior echo exam, there has been a decrease in TR severity. Pulmonic Valve: The pulmonic valve is not well seen, but is grossly normal. There is mild pulmonic regurgitation. Great Vessels: The aortic root is normal size. The dimensions of the ascending aorta are normal. Severe atherosclerotic plaque(s) in the ascending aorta. The IVC is of normal diameter and collapses greater than 50% with a sniff. This suggests a low right atrial pressure of 3 mm Hg. Pericardium/ Pleura There is no pericardial effusion. There is no pleural effusion. MMode/2D Measurements & Calculations LVIDd: 5.0 cm LVOT diam: 2.0 cm LVIDs: 3.8 cm Ao root diam: 3.2 cm FS: 25.0 % asc Aorta Diam: 3.1 cm IVSd: 1.1 cm Ao Arch Diam (Prox Trans): 2.9 cm LVPWd: 1.3 cm LV mcgraw. diameter/BSA (cm/m^2): 3.1 LV sys. diameter/BSA (cm/m^2): 2.3 LA A2 area: 26.6 cm2 RA long axis: 4.6 cm LA A4 area: 19.0 cm2 RA area: 17.0 cm2 LA length (vol): 5.3 cm RA vol: 53.6 ml LA vol: 81.2 ml RA : 32.7 ml/m2 LA vol index: 49.4 ml/m2 IVC diam: 1.9 cm RVD1 (basal): 4.1 cm RVD2 (mid): 3.1 cm TAPSE: 2.4 cm Doppler Measurements & Calculations Ao V2 max: 220.1 cm/sec LVOT Max Santi: 88.9 cm/sec Ao V2 mean: 146.8 cm/sec LV V1 max P.2 mmHg Ao max P.2 mmHg LV V1 VTI: 19.0 cm Ao mean P.6 mmHg MICHAEL(I,D): 1.2 cm2 Ao V2 VTI: 51.1 cm MICHAEL(V,D): 1.3 cm2 sev ratio: 0.37 MICHAEL indexed to BSA (cm^2/m^2): 0.73 MV E max santi: 112.7 cm/sec TR max santi: 254.7 cm/sec MV A max santi: 119.8 cm/sec TR max P.0 mmHg MV E/A: 0.94 PA V2 max: 86.8 cm/sec Med Peak E' Santi: 3.0 cm/sec PA V2 mean: 58.9 cm/sec E/E' med: 37.5 PA mean P.6 mmHg Lat Peak E' Santi: 3.5 cm/sec PA pr(Accel): 48.2 mmHg E/E' lat: 32.2 E/e' average: 34.8 MV dec time: 0.37 sec MVA(VTI): 1.5 cm2 MV V2 mean: 80.2 cm/sec SV(LVOT): 61.7 ml MV mean P.1 mmHg MV V2 VTI: 40.5 cm Reading Physician:11:18 AM
[2021-10-22] VITALS (23 sets, daily range): BP systolic 87–113; BP diastolic 51–68; PULSE 64–83; RESP 12–27; TEMP 36.2–37.1; O2SAT 90–100; BMI 33.7
[2021-10-22 00:37] LABS: Troponin I 0.146 ng/mL (0.01-0.034)
--- NOTE | 2021-10-22 01:26 | PC.NURSE ---
0039 received critical lab result r/t increasing troponin Dr. Negron paged, pt continues to rest comfortably without further complaint no changes to exam
--- NOTE | 2021-10-22 02:11 | PC.NURSE ---
Attempted to contact Dr Negron through the answering service for a 2nd time, another RN attempted the first time.
[2021-10-22 06:56] LABS: Add Manual Diff / Slide Review NO; Basophils Absolute Auto 0 /uL (0-100); Basophils Percent Auto 0.4 % (0-2); Eosinophils Absolute Auto 0 /uL (0-450); Hematocrit 35.5 % (36-46); Hemoglobin 12.1 g/dL (12.0-16.0); Lymphocytes Absolute Auto 1000 /uL (1100-4500); Lymphocytes Percent Auto 10.8 % (25-40); Mean Corpuscular HGB Conc 34.1 % (30-36); Mean Corpuscular Hemoglobin 32.2 PG (26-34); Mean Corpuscular Volume 94.4 fL (80-100); Monocytes Absolute Auto 200 /uL (0-900); Monocytes Percent Auto 2.6 % (3-14); Neutrophils Absolute Auto 7600 /uL (1500-7000); Neutrophils Percent Auto 86.2 % (50-75); Platelet Count 137 X10^3/uL (150-400); Red Blood Cell Count 3.76 X10^6/uL (4.0-5.2); Red Cell Distribution Width 14.7 % (11.6-14.8); White Blood Cell Count 8.8 X10^3/uL (4.5-11.0)
[2021-10-22 07:00] LABS: BUN Creatinine Ratio 30.2 (6-22); Blood Urea Nitrogen 16 mg/dL (7-17); Calcium 8.5 mg/dL (8.4-10.2); Carbon Dioxide 32 mmol/L (22-32); Chloride 102 mmol/L (98-107); Estimated Glomerular Filt Rate > 60 mL/min (>60); Glucose 131 mg/dL (80-110); HEMOLYSIS < 15 (0-50); Potassium 4.5 mmol/L (3.4-5.1); Sodium 138 mmol/L (137-145)
--- NOTE | 2021-10-22 07:14 | PM.PN.1 ---
Subjective Subjective Date Patient Seen: 10/22/21 Time Patient Seen: 07:14 Interval history: Patient seen and evaluated in the emergency department she is admitted as an inpatient and full ordering in the emergency room due to bed status. Patient states she has did fine overnight. Really has no complaints of chest pain dizziness she says her breathing is better still requiring oxygen. She says she is not really hungry. No pain or discomfort. Reviewed laboratory test x-rays and recent medications. Exam Vital Signs (past 8 hours): - 10/21/21 23:45 10/21/21 23:30 10/21/21 23:30 Pulse Rate 72 67 Respiratory Rate 19 14 Blood Pressure 106/56 L 71/39 L Pulse Oximetry 97 98 Oxygen Delivery Method Nasal Cannula Oxygen Flow Rate 2 10/21/21 23:43 10/21/21 23:43 10/21/21 23:44 Pulse Rate 66 73 Respiratory Rate 15 14 Blood Pressure 71/44 L Pulse Oximetry 98 100 Oxygen Delivery Method Oxygen Flow Rate 10/21/21 23:44 10/22/21 00:00 10/22/21 00:30 Pulse Rate 68 70 Respiratory Rate 14 25 H Blood Pressure 106/56 L Pulse Oximetry 99 100 Oxygen Delivery Method Oxygen Flow Rate 10/22/21 01:00 10/22/21 01:30 10/22/21 02:00 Pulse Rate 71 67 70 Respiratory Rate 27 H 13 18 Blood Pressure Pulse Oximetry 96 97 90 L Oxygen Delivery Method Oxygen Flow Rate 10/22/21 02:30 10/22/21 03:00 10/22/21 03:30 Pulse Rate 66 67 65 Respiratory Rate 13 13 12 Blood Pressure Pulse Oximetry 97 94 96 Oxygen Delivery Method Oxygen Flow Rate 10/22/21 04:00 10/22/21 04:30 10/22/21 04:57 Pulse Rate 66 64 Respiratory Rate 14 12 Blood Pressure 106/54 L Pulse Oximetry 94 94 Oxygen Delivery Method Oxygen Flow Rate 10/22/21 04:56 10/22/21 04:56 10/22/21 05:00 Pulse Rate 66 66 Respiratory Rate 19 19 Blood Pressure 106/54 L Pulse Oximetry 94 96 Oxygen Delivery Method Oxygen Flow Rate 10/22/21 05:30 Pulse Rate 64 Respiratory Rate 12 Blood Pressure Pulse Oximetry 95 Oxygen Delivery Method Oxygen Flow Rate Oxygen Delivery Method Nasal Cannula Oxygen Flow Rate 2 Narrative Exam Narrative: Gen.: Alert good historian very frail elderly patient HEENT: Pupils equal round and reactive or mucosa is moist Cardio: S1-S2 regular rate and rhythm Respiratory: Lungs are clear to auscultation no wheezes or crackles normal respiratory effort. Abdomen: Soft nontender no rebound or guarding no liver spleen enlargement no appreciable hernias Extremities: Patient with the bedridden status with lower extremity edema with the significant lower extremity weakness. Objective Labs Result Diagrams: 10/22/21 06:45 10/22/21 06:45 Labs: Laboratory Results - last 24 hr 10/21/21 10/21/21 10/21/21 12:41 12:41 12:41 WBC 15.3 H RBC 4.01 Hgb 12.5 Hct 38.3 MCV 95.6 MCH 31.2 MCHC 32.7 RDW 14.6 Plt Count 146 L Neut % (Auto) 70.0 Lymph % (Auto) 22.8 L [place] % (Auto) 4.3 Eos % (Auto) 2.0 Baso % (Auto) 0.9 Neut # (Auto) 18114 H Lymph # (Auto) 3500 [place] # (Auto) 700 Eos # (Auto) 300 Baso # (Auto) 100 Sodium 140 Potassium 3.0 L Chloride 105 Carbon Dioxide 29 BUN 11 Creatinine 0.42 L Estimated GFR > 60 BUN/Creatinine Ratio 26.2 H Glucose 170 H Lactate 2.0 Calcium 8.5 Total Bilirubin 0.4 AST 30 ALT 18 Alkaline Phosphatase 38 Total Creatine Kinase CK-MB (CK-2) CK-MB (CK-2) Rel Index Troponin I NT-Pro-B Natriuret Pep Total Protein 6.0 L Albumin 3.6 Globulin 2.4 Albumin/Globulin Ratio 1.5 Procalcitonin SARS-CoV-2 (PCR) 10/21/21 10/21/21 10/21/21 12:41 12:41 13:33 WBC RBC Hgb Hct MCV MCH MCHC RDW Plt Count Neut % (Auto) Lymph % (Auto) [place] % (Auto) Eos % (Auto) Baso % (Auto) Neut # (Auto) Lymph # (Auto) [place] # (Auto) Eos # (Auto) Baso # (Auto) Sodium Potassium Chloride Carbon Dioxide BUN Creatinine Estimated GFR BUN/Creatinine Ratio Glucose Lactate Calcium Total Bilirubin AST ALT Alkaline Phosphatase Total Creatine Kinase 53 CK-MB (CK-2) TNP CK-MB (CK-2) Rel Index TNP Troponin I 0.088 H NT-Pro-B Natriuret Pep 2610 H Total Protein Albumin Globulin Albumin/Globulin Ratio Procalcitonin 0.06 SARS-CoV-2 (PCR) Negative 10/21/21 10/22/21 10/22/21 14:45 00:02 06:45 WBC 8.8 RBC 3.76 L Hgb 12.1 Hct 35.5 L MCV 94.4 MCH 32.2 MCHC 34.1 RDW 14.7 Plt Count 137 L Neut % (Auto) 86.2 H Lymph % (Auto) 10.8 L [place] % (Auto) 2.6 L Eos % (Auto) 0.0 L Baso % (Auto) 0.4 Neut # (Auto) 7600 H Lymph # (Auto) 1000 L [place] # (Auto) 200 Eos # (Auto) 0 Baso # (Auto) 0 Sodium Potassium Chloride Carbon Dioxide BUN Creatinine Estimated GFR BUN/Creatinine Ratio Glucose Lactate Calcium Total Bilirubin AST ALT Alkaline Phosphatase Total Creatine Kinase CK-MB (CK-2) CK-MB (CK-2) Rel Index Troponin I 0.103 H 0.146 H* NT-Pro-B Natriuret Pep Total Protein Albumin Globulin Albumin/Globulin Ratio Procalcitonin SARS-CoV-2 (PCR) 10/22/21 06:45 WBC RBC Hgb Hct MCV MCH MCHC RDW Plt Count Neut % (Auto) Lymph % (Auto) [place] % (Auto) Eos % (Auto) Baso % (Auto) Neut # (Auto) Lymph # (Auto) [place] # (Auto) Eos # (Auto) Baso # (Auto) Sodium 138 Potassium 4.5 D Chloride 102 Carbon Dioxide 32 BUN 16 Creatinine 0.53 Estimated GFR > 60 BUN/Creatinine Ratio 30.2 H Glucose 131 H Lactate Calcium 8.5 Total Bilirubin AST ALT Alkaline Phosphatase Total Creatine Kinase CK-MB (CK-2) CK-MB (CK-2) Rel Index Troponin I NT-Pro-B Natriuret Pep Total Protein Albumin Globulin Albumin/Globulin Ratio Procalcitonin SARS-CoV-2 (PCR) [facility] Medical History Hyperlipidemia Rheumatoid arthritis Social History household members: none Smoking Status: Never smoker alcohol intake: never Assessment & Plan Assessment and plan (1) Acute exacerbation of CHF (congestive heart failure): Status: Acute Plan Non ST wave myocardial infarction patient's EKG was reviewed. Patient has intraventricular conduction delay. Patient has had continued increased troponin to intermediate range. Patient is really asymptomatic but she says she never feels anything with her heart. Certainly this is contributing to her shortness of breath and respiratory distress that she is having. She is currently on anticoagulation amiodarone. Her heart rate and blood pressure is controlled. Patient has an extensive cardiac history including intermittent atrial fibrillation. Other than continuing her amiodarone and her anticoagulation due to her frail elderly state it do not think cardiac intervention is warranted at this point. Will continue to monitor symptoms clinically and trend troponins. Hypoxia with multiple any allergies requiring oxygen at this point. Potential combination of heart failure versus pneumonia. Acute systolic heart failure. Patient has a known history of systolic heart failure. She comes in today in respiratory distress it is hard to distinguish cyst this from pneumonia for acute coronary syndrome or heart failure itself repeat echocardiogram today. Continue with mild diuresis with IV Lasix. Pneumonia. Patient has an elevated white blood cell count which increased again today she is hypoxic. I will order procalcitonin test. Because of increasing white blood cell count elected to start her on ceftriaxone 1000 mg IV once daily. Continue with oxygen therapy. She initially got some nebulizers her lungs sound clear this point and we will hold off on with continued nebulizers to help avoid tachycardia due to her history of atrial fibrillation. Atrial fibrillation patient with atrial fibrillation with history of cardioversion she is in normal sinus rhythm now on amiodarone and anticoagulation. Rheumatoid arthritis chronic and stable. Multiple sclerosis. Chronic unstable. Disposition plan patient will be admitted in inpatient and anticipate hospitalization for couple of days Time Spent With Patient Critical Care time: I spent a total of [] minutes of critical care time on this patient's care today; this time is exclusive of procedural time.
[2021-10-22 07:32] LABS: Procalcitonin 0.36 ng/mL (<0.5)
[2021-10-22] MEDS: cefTRIAXone 1,000 MG in SODIUM CHLORIDE 0.9% 100 ML 200 MG IV (08:18)
[2021-10-22] MEDS: methylPREDNISolone 125 MG/2 ML VIAL 60 MG IV (08:18)
[2021-10-22] MEDS: APIXABAN 5 MG TABLET PO ×2 (08:18→20:34)
[2021-10-22] MEDS: HYDROXYCHLOROQUINE 200 MG TABLET PO ×2 (09:42→20:34)
[2021-10-22] MEDS: POTASSIUM CHLORIDE 10 MEQ TAB PO ×2 (09:44→20:34)
[2021-10-22] MEDS: FOLIC ACID 1 MG TABLET PO (09:45)
[2021-10-22] MEDS: AMIODARONE 200 MG TABLET PO (09:45)
[2021-10-22] MEDS: FUROSEMIDE 20 MG/2 ML VIAL IV (10:05)
[2021-10-22] MEDS: MUPIROCIN 22 GM OINT 1 APPLIC TOP ×2 (11:15→20:35)
--- NOTE | 2021-10-22 14:32 | PC.NURSE ---
report called to Teresa TOWNSEND
--- NOTE | 2021-10-22 19:55 | PC.NURSE ---
Pt arrived to room 521 at 1420, A&Ox3, pleasant and talkative. Denies any complaints, denies SOB. She tolerates dinner well and remains upper 90's saturation on RA (96%). LS clear diminished in bases. She is assisted to turn q 2hours. She has a purwhick in place draining adequate clear, yellow urine. Continuous monitoring. MD Haywood notified, and clarified not necessary to place patient on telemetry.
[2021-10-22] MEDS: ATORVASTATIN 20 MG TABLET PO (20:34)
[2021-10-22] MEDS: LORazepam 0.5 MG TABLET PO (20:34)
[2021-10-23 04:20] VITALS: BP 116/68; PULSE 70; RESP 14; TEMP 36.3; O2SAT 98
[2021-10-23 05:36] LABS: Add Manual Diff / Slide Review NO; Basophils Absolute Auto 0 /uL (0-100); Basophils Percent Auto 0.2 % (0-2); Eosinophils Absolute Auto 0 /uL (0-450); Eosinophils Percent Auto 0.1 % (2-4); Hematocrit 34.2 % (36-46); Hemoglobin 11.4 g/dL (12.0-16.0); Lymphocytes Absolute Auto 1600 /uL (1100-4500); Lymphocytes Percent Auto 16.7 % (25-40); Mean Corpuscular HGB Conc 33.2 % (30-36); Mean Corpuscular Hemoglobin 31.5 PG (26-34); Mean Corpuscular Volume 94.8 fL (80-100); Monocytes Absolute Auto 1100 /uL (0-900); Monocytes Percent Auto 11.2 % (3-14); Neutrophils Absolute Auto 6900 /uL (1500-7000); Neutrophils Percent Auto 71.8 % (50-75); Platelet Count 159 X10^3/uL (150-400); Red Blood Cell Count 3.61 X10^6/uL (4.0-5.2); Red Cell Distribution Width 14.4 % (11.6-14.8); White Blood Cell Count 9.6 X10^3/uL (4.5-11.0)
[2021-10-23 05:48] LABS: Alanine Aminotransferase 16 IU/L (<35); Albumin 3.5 g/dL (3.5-5.0); Albumin Globulin Ratio 1.5 (1.0-2.8); Alkaline Phosphatase 35 U/L (38-126); Aspartate Aminotransferase 22 IU/L (14-36); Bilirubin Total 0.3 mg/dL (0.2-1.3); Blood Urea Nitrogen 23 mg/dL (7-17); Calcium 8.7 mg/dL (8.4-10.2); Carbon Dioxide 35 mmol/L (22-32); Chloride 100 mmol/L (98-107); Estimated Glomerular Filt Rate > 60 mL/min (>60); Globulin 2.3 g/dL (1.7-4.1); Glucose 113 mg/dL (80-110); HEMOLYSIS < 15 (0-50); Potassium 4.3 mmol/L (3.4-5.1); Sodium 138 mmol/L (137-145); Total Protein 5.8 g/dL (6.3-8.2)
[2021-10-23 06:00] LABS: Troponin I 0.081 ng/mL (0.01-0.034)
[2021-10-23] MEDS: cefTRIAXone 1,000 MG in SODIUM CHLORIDE 0.9% 100 ML 200 MG IV (06:24)
--- NOTE | 2021-10-23 08:53 | PM.PN.1 ---
Subjective Subjective Date Patient Seen: 10/23/21 Time Patient Seen: 07:35 Interval history: The pt reports feeling well this morning. She denies any specific concerns. She states that her breathing is back to baseline. She continues to have little appetite. Exam Vital Signs (past 8 hours): - 10/23/21 04:20 Temperature 97.4 F L Pulse Rate 70 Respiratory Rate 14 Blood Pressure 116/68 Pulse Oximetry 98 Oxygen Flow Rate 0 Oxygen Delivery Method Room Air Oxygen Flow Rate 0 Narrative Exam Narrative: Gen: NAD, sitting comfortably in bed, appears well, severely kyphotic CV: RRR, grade 3/6 systolic murmur Resp: clear to auscultation bilaterally Abd: soft, nontender, nondistended Ext: no edema Objective Labs Result Diagrams: 10/23/21 04:55 10/23/21 04:55 Labs: Laboratory Results - last 24 hr 10/23/21 10/23/21 10/23/21 04:55 04:55 04:55 WBC 9.6 RBC 3.61 L Hgb 11.4 L Hct 34.2 L MCV 94.8 MCH 31.5 MCHC 33.2 RDW 14.4 Plt Count 159 Neut % (Auto) 71.8 Lymph % (Auto) 16.7 L [place] % (Auto) 11.2 Eos % (Auto) 0.1 L Baso % (Auto) 0.2 Neut # (Auto) 6900 Lymph # (Auto) 1600 [place] # (Auto) 1100 H Eos # (Auto) 0 Baso # (Auto) 0 Sodium 138 Potassium 4.3 Chloride 100 Carbon Dioxide 35 H BUN 23 H Creatinine 0.59 Estimated GFR > 60 BUN/Creatinine Ratio 39.0 H Glucose 113 H Calcium 8.7 Total Bilirubin 0.3 AST 22 ALT 16 Alkaline Phosphatase 35 L Troponin I 0.081 H Total Protein 5.8 L Albumin 3.5 Globulin 2.3 Albumin/Globulin Ratio 1.5 PFSH Medical History Hyperlipidemia Rheumatoid arthritis Social History household members: none Smoking Status: Never smoker alcohol intake: never Assessment & Plan Assessment & Plan narrative: Pt is a 76yo woman with RA, MS, osteoporosis, severe kyphoscoliosis who is wheelchair bound who presented with SOB, found to be hypoxic.? 1)? NSTEMI: Pt with elevation of troponin to intermediate range, now trending down again. Likely contributing to SOB. Pt does not desire significant intervention if NSTEMI present. BP and HR controlled. - Continue anticoagulation - No further trending of troponins as trending back down 2) Acute heart failure with chronic CHF with preserved EF: EF 50-55% on Echo yesterday. CXR on admission with some evidence volume overload. - Continue IV Lasix 3) Pneumonia: Elevated WBC count, no normalized after initiation of antibiotics. Procalcitonin never elevated, but did go up significantly yesterday. - Continue IV Ceftriaxone for now - Will likely not d/c on antibiotics 3) Hypoxia: Improved, pt now on room air. Likely multifactorial from NSTEMI, CHF, pneumonia. - Continuous pulse ox - Oxygen supplementation as needed 4)? Atrial fibrillation, aortic and mitral stenosis:? Stable.? Continue home medications. 5)? Rheumatoid arthritis:? Stable.? Continue with home medications 6)? Multiple sclerosis:? Stable FEN:? Cardiac diet Code:? DNR DVT ppx:? On anticoagulation Dispo:?Pt stabilizing. Due to frail baseline status, will ensure stability overnight with likely discharge in the morning. Time Spent With Patient Critical Care time: I spent a total of [] minutes of critical care time on this patient's care today; this time is exclusive of procedural time.
[2021-10-23] MEDS: FUROSEMIDE 20 MG/2 ML VIAL IV (09:43)
[2021-10-23] MEDS: HYDROXYCHLOROQUINE 200 MG TABLET PO ×2 (09:43→20:48)
[2021-10-23] MEDS: APIXABAN 5 MG TABLET PO ×2 (09:43→20:48)
[2021-10-23] MEDS: AMIODARONE 200 MG TABLET PO (09:44)
[2021-10-23] MEDS: methylPREDNISolone 125 MG/2 ML VIAL 60 MG IV (09:44)
[2021-10-23] MEDS: FOLIC ACID 1 MG TABLET PO (09:44)
[2021-10-23] MEDS: POTASSIUM CHLORIDE 10 MEQ TAB PO ×2 (09:44→20:48)
[2021-10-23] MEDS: MUPIROCIN 22 GM OINT 1 APPLIC TOP ×2 (09:52→23:14)
--- NOTE | 2021-10-23 11:26 | CM.DANOTE ---
DCP Assessment: Payor: Oniel PCP: MD Migdalia Pt is a 76 y.o. F who arrived to the ED with shortness of breath. Pt has a history of MS and was hospitalized recently in July 2021. Pt is wheelchair bound and has caregivers at home. Pt was admitted under observation status for management of acute exacerbation of CHF. DCP met with pt this morning bedside to discuss discharge needs. Pt was laying in bed reading the newspaper. Pt states that she lives in an apartment and she uses the elevator to get to it. Pt is currently wheelchair bound and pt states she has caregivers who come everyday for 3 hours a day to assist her. Pt states that her main transportation is the bus. Pt states that her daughter does live in the area and comes by to visit with her when she can. Pt states that once she gets discharged, she would need an ambulance to take her back home. Pt states that her emergency contact is her daughter and Sriram and Johnathan have , as these were her two main contacts. Pt declines any other needs at this time. Pt thankful for the discussion. White board updated and instructed to call with any questions or concerns that may arise. P: Once pt is medically stable for discharge, pt to discharge back home via BLS transport. Shakira Chow RN/MARIBELL Discharge Planning/Care Management CM Discharge Assessment Start: 10/23/21 11:18 Freq: Status: Active Protocol: Document 10/23/21 11:18 SNEHA (Rec: 10/23/21 11:21 SNEHA [id number]) Discharge Planning Assessment Assigned Set Builder Shakira Chow RN/MARIBELL Advance Directives? Yes: POLST Advance Directives on File Yes History Provided By Patient,Medical Record Prior Living Arrangements Apartment/Condo Household Members none Type of transporation used prior to Public Transportation admit Comment Pt states she takes the bus Independent with ADL's No Is patient alert and oriented? Yes Comment Pt has caregivers who come 3 hours a day Caregiver for Another No DME Already Rented / Owned Wheelchair Discharge Plan Home with Home Health Whiteboard Updated in Patient Room with Yes name and ext. # of Set Builder Comment Instructed to call Review Status In Process Please Provide Date Initial DC 10/23/21 Assessment Was Performed Next Review Type Continued Stay Review
[2021-10-23 13:50] VITALS: BP 74/44; PULSE 78; RESP 14; TEMP 36.7; O2SAT 97
[2021-10-23 14:00] VITALS: BP 97/76; PULSE 79
[2021-10-23 17:25] VITALS: BP 97/41; PULSE 81; RESP 18; TEMP 36.9; O2SAT 96
[2021-10-23] MEDS: ACETAMINOPHEN 325 MG TABLET 650 MG PO (19:08)
[2021-10-23] MEDS: LORazepam 0.5 MG TABLET PO (20:48)
[2021-10-23] MEDS: ATORVASTATIN 20 MG TABLET PO (20:48)
[2021-10-24 00:17] VITALS: BP 101/53; PULSE 66; RESP 16; TEMP 37.4; O2SAT 96
[2021-10-24] MEDS: cefTRIAXone 1,000 MG in SODIUM CHLORIDE 0.9% 100 ML 200 MG IV (06:04)
[2021-10-24 07:40] VITALS: BP 127/49; PULSE 65; RESP 18; TEMP 37.2; O2SAT 99
[2021-10-24] MEDS: methylPREDNISolone 125 MG/2 ML VIAL 60 MG IV (09:31)
[2021-10-24] MEDS: POTASSIUM CHLORIDE 10 MEQ TAB PO (09:32)
[2021-10-24] MEDS: APIXABAN 5 MG TABLET PO (09:32)
[2021-10-24] MEDS: HYDROXYCHLOROQUINE 200 MG TABLET PO (09:33)
[2021-10-24] MEDS: FOLIC ACID 1 MG TABLET PO (09:33)
[2021-10-24] MEDS: AMIODARONE 200 MG TABLET PO (09:33)
[2021-10-24] MEDS: MUPIROCIN 22 GM OINT 1 APPLIC TOP (09:34)
[2021-10-24] MEDS: FUROSEMIDE 20 MG/2 ML VIAL IV (09:35)
--- NOTE | 2021-10-24 12:10 | PM.DS.1 ---
History of Present Illness History of Present Illness Date Patient Seen: 10/24/21 Chief complaint: SOB Narrative: Pt is a 76yo woman with RA, MS, osteoporosis, severe kyphoscoliosis who is wheelchair bound who presented with SOB. The pt reports that she was in her usual state of health, until this morning when she woke feeling SOB. This seemed to get progressively worse throughout the morning. Her daughter came to visit with her caregiver, and noted that the pt seemed to be panting. EMS was contacted, and the pt was brought to the ED for further evaluation. The pt denies any recent cough, fever, chills, chest pain, significant wheezing, palpitations, or worsening LE edema. She really has no additional complaints other than feeling she was SOB and panting. EMS reportedly gave the pt a nebulizer treatment, with some improvement in her symptoms. In the ED, lab work revealed a minimally elevated troponin with normal EKG. BNP appeared to be around baseline for the pt. WBC count was elevated to 15. CXR showed cardiomegaly but no evidence of pneumonia. She was hypoxic to the upper 80s, requiring 3L of NC O2. 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 She initially required oxygen supplementation. She was treated for possible asthma/COPD and CHF exacerbation initially, with IV steroids and duonebs in addition to IV Lasix. The pts troponin trihsa to intermediate range. She was diagnosed with NSTEMI, however pt remained relatively asymptomatic and troponin then trended back down. The pt was diagnosed with pneumonia based on a rising WBC count, and was treated with 3 days of antibiotics while in the hospital. These will not be continued as an outpatient. Her oxygen was weaned, and the pt was stable on room air for more than 24hrs prior to discharge. The pt will be discharged on a prednisone taper, in addition to additional 10 days of Lasix. She should have f/u in clinic in that time frame to determine if Lasix needs to be continued longer. Status at Discharge Cognitive/behavioral status at discharge: oriented Functional status at discharge: wheelchair bound Overall status at discharge: patient is back to baseline Exam Vital Signs (past 8 hours): - 10/24/21 07:40 Temperature 98.9 F Pulse Rate 65 Respiratory Rate 18 Blood Pressure 127/49 L Pulse Oximetry 99 Oxygen Flow Rate 0 Oxygen Delivery Method Room Air Oxygen Flow Rate 0 Narrative Exam Narrative: Gen:? NAD, sitting comfortably in bed, appears well, severely kyphotic CV:? RRR, grade 3/6 systolic murmur Resp:? clear to auscultation bilaterally Abd:? soft, nontender, nondistended Ext:? no edema Objective Labs Result Diagrams: 10/23/21 04:55 10/23/21 04:55 [facility] Medical History Hyperlipidemia Rheumatoid arthritis Social History household members: none Smoking Status: Never smoker alcohol intake: never Discharge Plan Discharge Plan Patient Disposition: Home Discharge orders & Medications Prescriptions: New prednisone 20 mg tablet 20 mg PO DAILY Qty: 12 0RF Rx Instructions: Take 3 tabs daily for 2 days, 2 tabs daily for 2 days, 1 tab daily for 2 days, then usual prednisone dosing furosemide 20 mg tablet 20 mg PO DAILY Qty: 10 0RF Continued mupirocin 2 % ointment 1 applictn TOP BID Qty: 30 0RF lorazepam [Ativan] 0.5 MG tablet 0.5 mg PO HS Qty: 90 Label Comments: pt states that she takes as needed folic acid 1 MG tablet 1 mg PO DAILY Qty: 0 multivitamin [Multiple Vitamins] 1 EACH tablet 1 tab PO DAILY Qty: 0 Label Comments: pt has not taken in a while and states she would like to take them again ascorbic acid (vitamin C) 500 MG tablet 1,000 mg PO DAILY Qty: 0 (DME) incontinence supplies Qty: 150 0RF Dose Instruction: As directed Rx Instructions: As directed change up to 5 times daily (DME) wheelchair device See Dose Instructions .ROUTE .MEDSUPPLY Qty: 1 0RF Dose Instruction: As directed Rx Instructions: repair and replace as needed methotrexate sodium 2.5 mg tablet 12.5 mg PO .COMPLEX Qty: 90 3RF Rx Instructions: 12.5 mg PO Take 5 tablets in the morning and 5 in the afternoon once weekly; Tuesdays atorvastatin 40 mg tablet See Rx Instructions .ROUTE .COMPLEX Qty: 90 1RF Dose Instruction: TAKE 1 TABLET BY MOUTH DAILY Rx Instructions: TAKE 1 TABLET BY MOUTH DAILY (DME) david lift See Rx Instructions .Route .MEDSUPPLY Qty: 1 0RF Rx Instructions: As directed (DME) purewick female catheter See Rx Instructions .Route .MEDSUPPLY Qty: 1 6RF Rx Instructions: One full box of 30 please. As directed (DME) purewick suction canister See Rx Instructions .Route .MEDSUPPLY Qty: 1 6RF Rx Instructions: As directed (DME) purewick replacement canisters See Rx Instructions .Route .MEDSUPPLY Qty: 1 6RF Rx Instructions: As directed Eliquis 5 mg tablet 5 mg PO BID Qty: 60 1RF potassium chloride 10 mEq capsule, extended release See Rx Instructions .ROUTE .COMPLEX Qty: 60 5RF Dose Instruction: TAKE 1 CAPSULE BY MOUTH TWICE DAILY Rx Instructions: TAKE 1 CAPSULE BY MOUTH TWICE DAILY hydroxychloroquine [Plaquenil] 200 mg tablet 200 mg PO BID Qty: 180 3RF amiodarone 200 mg tablet 200 mg PO DAILY Qty: 30 0RF Discontinued prednisone 2.5 mg tablet See Rx Instructions PO BID Qty: 90 5RF Rx Instructions: Take 2 tabs each morning and one tab at night orally twice a day; Follow up/Referrals: Radha Negron MD [Primary Care Provider] - 2 Weeks Diet/Activity/Treatments Diet: Diet as Tolerated and Regular Visit Report/Discharge Packet Visit Report Forms: Patient Portal/API, Stroke Signs & Symptoms Discharge Data Primary Care Provider: Radha Negron
--- NOTE | 2021-10-24 14:44 | CM.DPNOTE ---
DCP Note: Patient discharging back to her apartment at [facility]. Had arranged with [facility] caregiver to meet patient at home at expected discharge time of 1:30. BLS arrived and discharged at 1:30. Patient comfortable with discharge. This DCP LM for daughter. Brinda Funes RN/DCP
== END 2021-10-24 13:38 | disposition home or self-care (01) | DRG 280 ==
LOC: ED 16:09 → AC 20:09
PROVIDERS: Family Medicine; Admitting Provider Family Medicine; Emergency Provider Emergency Medicine; PCP Family Medicine; Referring Provider Emergency Medicine; Visit Provider Family Medicine
DX: I21.4 Non-ST elevation (NSTEMI) myocardial infarction (principal); J18.9 Pneumonia, unspecified organism; I50.33 Acute on chronic diastolic (congestive) heart failure; R09.02 Hypoxemia; I48.91 Unspecified atrial fibrillation; Z79.01 Long term (current) use of anticoagulants; I08.0 Rheumatic disorders of both mitral and aortic valves; M06.9 Rheumatoid arthritis, unspecified; G35 Multiple sclerosis
CPT/HCPCS: 36415; 71045; 80048; 80053; 82550; 83605; 83880; 84145; 84484; 85025; 87635; 93005; 93010; 93306; 96365; 96375; 99223; 99232; 99238; 99284; C9803; J0696; J1940; J2405; J2930

== ENCOUNTER 2021-11-17 13:38 | Emergency (ER) | payer OTHER, MEDICAID, SELFPAY ==
[2021-07-10 23:00] VITALS: PULSE 59; RESP 15; O2SAT 100
[2021-10-22 19:04] VITALS: BMI 33.7
[2021-11-17] VITALS (11 sets, daily range): BP systolic 116–172; BP diastolic 57–86; PULSE 80–102; RESP 16; TEMP 36.6; O2SAT 92–95; BMI 23.8
--- NOTE | 2021-11-17 13:55 | ED.ABDPAIN ---
HPI - Abdominal Pain <Vilma Cornelius, [facility] - Last Filed: 11/17/21 19:20> General Chief Complaint: Abdominal Pain Stated Complaint: Neck Pain, Nausea Time Seen by Provider: 11/17/21 13:47 Source: patient and EMS Mode of arrival: EMS History of Present Illness HPI narrative: Patient is a 76-year-old female history of MS, AFib with RVR, CHF who presents today with onset of low abdominal pain which started yesterday, and nausea. Patient denies any vomiting, fever or chills, shortness of breath, chest pain, back pain, dysuria, urinary frequency or other. She states that she is continent but wears a brief all of the time and is unable to get up and use a commode. Patient states that she has otherwise been in a good state of health, denies any abdominal surgeries in the past, denies any recent antibiotics. On chart review it appears that her urine culture from 07/12/2021 grew out Klebsiella pneumoniae and Enterococcus faecalis with resistance to tetracyclines and ampicillin. She denies any weakness or dizziness, denies any changes to her activity level recently. Patient states that otherwise she feels well, her abdominal pain has been uncomfortable, she states that she does not have much tone when she has a bowel movement. She states that she wears a brief at all times. Related Data Home Medications Medication Instructions Recorded Confirmed ascorbic acid (vitamin C) 500 mg 1,000 mg PO DAILY ##0 02/10/16 07/24/21 tablet folic acid 1 mg tablet 1 mg PO DAILY ##0 02/10/16 07/24/21 lorazepam 0.5 mg tablet (Ativan) 0.5 mg PO HS #90 tabs 02/10/16 07/24/21 multivitamin (Multiple Vitamins 1 tab PO DAILY ##0 02/10/16 07/24/21 tablet) Previous Rx's Medication Instructions Recorded mupirocin 2 % topical ointment 1 applictn topical BID #30 grams 04/06/18 incontinence supplies #150 ea 05/05/18 wheelchair #1 ea 07/24/18 methotrexate sodium 2.5 mg tablet 12.5 mg PO .COMPLEX #90 tabs 12/10/20 atorvastatin 40 mg tablet See Rx Instructions .Route 12/15/20 .COMPLEX #90 tabs david lift #1 ea 04/14/21 amiodarone 200 mg tablet 200 mg PO DAILY #30 tabs 07/19/21 purewick female catheter #1 ea 08/03/21 purewick replacement canisters #1 ea 08/03/21 purewick suction canister #1 ea 08/03/21 apixaban 5 mg tablet (Eliquis) 5 mg PO BID #60 tabs 08/07/21 potassium chloride 10 mEq See Rx Instructions .Route 08/11/21 capsule,extended release .COMPLEX #60 caps hydroxychloroquine 200 mg tablet 200 mg PO BID #180 tabs 10/16/21 (Plaquenil) furosemide 20 mg tablet 20 mg PO DAILY #10 tabs 10/24/21 prednisone 20 mg tablet 20 mg PO DAILY #12 tabs 10/24/21 bisacodyl 10 mg rectal suppository 10 mg NJ DAILY PRN constipation 11/17/21 #12 ea magnesium citrate 150 ml PO DAILY PRN constipation 11/17/21 #296 mL polyethylene glycol 3350 17 17 g PO DAILY #119 grams 11/17/21 gram/dose oral powder (Miralax) Allergies Allergy/AdvReac Type Severity Reaction Status Date / Time NSAIDS (Non-Steroidal Allergy Mild Verified 07/24/21 10:58 Anti-Inflamma [NSAIDS (NON-STEROIDAL ANTI-INFLAMMA] Review of Systems <TANG Phelan - Last Filed: 11/17/21 19:20> Review of Systems Narrative: General: denies fever, chills, malaise, sweats, fatigue Head/Neck: denies headache, neck pain, dizziness Eyes: denies visual changes, eye pain Cardio: denies chest pain, palpitations, edema Respiratory: denies dyspnea, cough, orthopnea GI: Endorses generalized lower abdominal pain and nausea without vomiting, or diarrhea, denies constipation : denies dysuria, hematuria, urinary retention, frequency or incontinence, wears a brief at baseline MSK: denies joint pain, muscle weakness Skin: denies rash, itching, skin lesions or other Neuro: denies numbness, tingling Patient History <TANG Phelan - Last Filed: 11/17/21 19:20> Medical History Hyperlipidemia Rheumatoid arthritis Social History household members: none Smoking Status: Never smoker alcohol intake: never Smoking Status: Never smoker Substance Use Type: does not use Exam <TANG Phelan - Last Filed: 11/17/21 19:20> Narrative Exam Narrative: Independently reviewed vitals signs and nursing notes. General: cooperative, in no acute distress, wearing a hospital gown, states is unable to stand or use a commode, appears comfortable, elderly, thin and frail Head: atraumatic, symmetrical facial expressions Neck: supple Eyes: equal round and reactive, EOMI, conjunctiva normal Nose: nares patent, no rhinorrhea Mouth/Throat: moist mucus membranes Cardiovascular: regular rate and rhythm, no peripheral edema, warm extremities Respiratory: normal effort, able to speak in complete sentences, no audible wheezing, stridor, or rales. No retractions or tachypnea. GI: abdomen soft, nontender to palpation, nondistended, no masses, no exquisite tenderness with exam, without guarding or rebound. MSK: moves all extremities, neurovascularly intact, no weakness, normal tone Skin: brisk capillary refill, no rash, no erythema Neuro: normal speech and cognition, A&O x3 Psych: mental status is grossly normal, congruent mood, normal affect, pleasant and cooperative Initial Vital Signs Initial Vital Signs: Vital Signs Pulse Rate 102 H 11/17/21 13:40 Blood Pressure 136/86 11/17/21 13:40 Pulse Oximetry 94 11/17/21 13:40 <Claritza Hutson MD - Last Filed: 11/22/21 18:00> Initial Vital Signs Initial Vital Signs: Vital Signs Pulse Rate 102 H 11/17/21 13:40 Blood Pressure 136/86 11/17/21 13:40 Pulse Oximetry 94 11/17/21 13:40 Course <TANG Phelan - Last Filed: 11/17/21 19:20> Orders Ordered: Discontinued Medications Bisacodyl (Bisacodyl 10 Mg Supp) 10 mg NJ NOW ONE Stop: 11/17/21 16:05 Last Admin: 11/17/21 16:49 Dose: 10 mg Documented By: NR Sodium Chloride (Normal Saline 0.9%) 1,000 mls @ 1,000 mls/hr IV BOLUS ONE Stop: 11/17/21 15:59 Last Infusion: 11/17/21 18:10 Dose: 0 mls/hr Documented By: Admin: 11/17/21 15:41 Dose: 1,000 mls/hr Documented By: CHYNA Ondansetron HCl (Ondansetron 4 Mg/2 Ml Inj) 4 mg IV NOW ONE Stop: 11/17/21 14:13 Last Admin: 11/17/21 15:41 Dose: 4 mg Documented By: CHYNA Potassium Chloride (Potassium Chloride 20 Meq/15 Ml Udc) 40 meq PO NOW ONE Stop: 11/17/21 15:33 Last Admin: 11/17/21 15:41 Dose: 40 meq Documented By: CHYNA Sodium Biphosphate/Sodium Phosphate (Fleets Enema) 1 each NJ NOW ONE Stop: 11/17/21 16:07 Last Admin: 11/17/21 18:53 Dose: Not Given Documented By: LINDSEY Sodium Biphosphate/Sodium Phosphate (Fleets Enema) 1 each [place] NOW ONE Stop: 11/17/21 16:33 Last Admin: 11/17/21 18:43 Dose: Not Given Documented By: LINDSEY Reevaluation(s) Reevaluation #1: After patient's CT resulted it appears that she has a large amount of impacted stool in her rectum. On exam, fecal disimpaction was completed by myself, I removed approximately 500 mL of soft brown stool. Patient does not have much tone to bear down and have a bowel movement, she does not have any large coccyx wound or pressure ulcer. She does not have any tenderness to her rectum, and docusate suppository was inserted above palpable stool Reevaluation #2: On recheck 1.5 hours later, removed another 500 mL of soft brown stool from patient's rectum and patient reports feeling much better without more stool to give. Discussed with patient that she may need assistance at home with digital stimulation from her caregivers to have bowel movements. Vital Signs Vital signs: Vital Signs - 8 hr 11/17/21 13:44 11/17/21 13:40 11/17/21 13:40 Temperature 98 F Pulse Rate 100 H 102 H Respiratory Rate 16 Blood Pressure 136/86 136/86 Pulse Oximetry 95 94 Oxygen Delivery Method Room Air 11/17/21 14:00 11/17/21 14:01 11/17/21 14:01 Temperature Pulse Rate 96 H 96 H Respiratory Rate Blood Pressure 157/79 H Pulse Oximetry 93 95 Oxygen Delivery Method 11/17/21 14:56 11/17/21 14:57 11/17/21 14:57 Temperature Pulse Rate 93 H 92 H Respiratory Rate Blood Pressure 172/68 H Pulse Oximetry 92 92 Oxygen Delivery Method 11/17/21 15:00 11/17/21 15:00 11/17/21 15:30 Temperature Pulse Rate 89 95 H Respiratory Rate Blood Pressure 156/69 H Pulse Oximetry 92 94 Oxygen Delivery Method 11/17/21 15:42 11/17/21 15:42 11/17/21 16:00 Temperature Pulse Rate 91 H Respiratory Rate Blood Pressure 143/65 H 125/60 Pulse Oximetry 93 Oxygen Delivery Method 11/17/21 16:00 11/17/21 16:30 11/17/21 16:30 Temperature Pulse Rate 92 H 80 Respiratory Rate Blood Pressure 116/57 L Pulse Oximetry 94 94 Oxygen Delivery Method <Claritza Hutson MD - Last Filed: 11/22/21 18:00> Orders Ordered: Discontinued Medications Bisacodyl (Bisacodyl 10 Mg Supp) 10 mg NJ NOW ONE Stop: 11/17/21 16:05 Last Admin: 11/17/21 16:49 Dose: 10 mg Documented By: LINDSEY Sodium Chloride (Normal Saline 0.9%) 1,000 mls @ 1,000 mls/hr IV BOLUS ONE Stop: 11/17/21 15:59 Last Infusion: 11/17/21 18:10 Dose: 0 mls/hr Documented By: Admin: 11/17/21 15:41 Dose: 1,000 mls/hr Documented By: CHYNA Ondansetron HCl (Ondansetron 4 Mg/2 Ml Inj) 4 mg IV NOW ONE Stop: 11/17/21 14:13 Last Admin: 11/17/21 15:41 Dose: 4 mg Documented By: CHYNA Potassium Chloride (Potassium Chloride 20 Meq/15 Ml Udc) 40 meq PO NOW ONE Stop: 11/17/21 15:33 Last Admin: 11/17/21 15:41 Dose: 40 meq Documented By: CHYNA Sodium Biphosphate/Sodium Phosphate (Fleets Enema) 1 each NJ NOW ONE Stop: 11/17/21 16:07 Last Admin: 11/17/21 18:53 Dose: Not Given Documented By: NR Sodium Biphosphate/Sodium Phosphate (Fleets Enema) 1 each NJ NOW ONE Stop: 11/17/21 16:33 Last Admin: 11/17/21 18:43 Dose: Not Given Documented By: NR Vital Signs Vital signs: Vital Signs - 8 hr 11/17/21 13:44 11/17/21 13:40 11/17/21 13:40 Temperature 98 F Pulse Rate 100 H 102 H Respiratory Rate 16 Blood Pressure 136/86 136/86 Pulse Oximetry 95 94 Oxygen Delivery Method Room Air 11/17/21 14:00 11/17/21 14:01 11/17/21 14:01 Temperature Pulse Rate 96 H 96 H Respiratory Rate Blood Pressure 157/79 H Pulse Oximetry 93 95 Oxygen Delivery Method 11/17/21 14:56 11/17/21 14:57 11/17/21 14:57 Temperature Pulse Rate 93 H 92 H Respiratory Rate Blood Pressure 172/68 H Pulse Oximetry 92 92 Oxygen Delivery Method 11/17/21 15:00 11/17/21 15:00 11/17/21 15:30 Temperature Pulse Rate 89 95 H Respiratory Rate Blood Pressure 156/69 H Pulse Oximetry 92 94 Oxygen Delivery Method 11/17/21 15:42 11/17/21 15:42 11/17/21 16:00 Temperature Pulse Rate 91 H Respiratory Rate Blood Pressure 143/65 H 125/60 Pulse Oximetry 93 Oxygen Delivery Method 11/17/21 16:00 11/17/21 16:30 11/17/21 16:30 Temperature Pulse Rate 92 H 80 Respiratory Rate Blood Pressure 116/57 L Pulse Oximetry 94 94 Oxygen Delivery Method MDM - Abdominal Pain <TANG Phelan - Last Filed: 11/17/21 19:20> Lab Data Result diagrams: 11/17/21 14:35 11/17/21 14:35 Labs: Lab Results 11/17/21 11/17/21 11/17/21 Range/Units 13:57 14:06 14:35 WBC 16.7 H (4.5-11.0) X10^3/uL RBC 4.28 (4.0-5.2) X10^6/uL Hgb 13.6 (12.0-16.0) g/dL Hct 39.4 (36-46) % MCV 92.1 (80-100) fL MCH 31.7 (26-34) PG MCHC 34.4 (30-36) % RDW 14.5 (11.6-14.8) % Plt Count 155 (150-400) X10^3/uL Neut % (Auto) 84.2 H (50-75) % Lymph % (Auto) 8.1 L (25-40) % [place] % (Auto) 5.3 (3-14) % Eos % (Auto) 1.4 L (2-4) % Baso % (Auto) 1.0 (0-2) % Neut # (Auto) 22194 H (9257-4415) /uL Lymph # (Auto) 1400 (4274-8992) /uL [place] # (Auto) 900 (0-900) /uL Eos # (Auto) 200 (0-450) /uL Baso # (Auto) 200 H (0-100) /uL Sodium (137-145) mmol/L Potassium (3.4-5.1) mmol/L Chloride (98-107) mmol/L Carbon Dioxide (22-32) mmol/L BUN (7-17) mg/dL Creatinine (0.52-1.04) mg/dL Estimated GFR (>60) mL/min BUN/Creatinine Ratio (6-22) Glucose (80-110) mg/dL Lactate (0.7-2.1) mmol/L Calcium (8.4-10.2) mg/dL Total Bilirubin (0.2-1.3) mg/dL AST (14-36) IU/L ALT (<35) IU/L Alkaline Phosphatase (38-126) U/L Total Creatine Kinase (30-135) U/L CK-MB (CK-2) CK-MB (CK-2) Rel Index Troponin I (0.01-0.034) ng/mL NT-Pro-B Natriuret Pep (<450) pg/mL Total Protein (6.3-8.2) g/dL Albumin (3.5-5.0) g/dL Globulin (1.7-4.1) g/dL Albumin/Globulin Ratio (1.0-2.8) Lipase (23-300) U/L Procalcitonin (<0.5) ng/mL Urine Color Urine Appearance Urine pH (4.5-8.0) Ur Specific [place] (1.000-1.035) Urine Protein (Negative) Urine Glucose (UA) (Negative) g/dL Urine Ketones (NEGATIVE) Urine Occult Blood (Negative) Urine Nitrate (Negative) Urine Bilirubin (NEGATIVE) Urine Urobilinogen (0.2) E.U./dL Ur Leukocyte Esterase (NEGATIVE) Urine RBC Cancelled Urine WBC Cancelled Ur Squamous Epith Cells Cancelled Ur Transition Epith Cell Cancelled Ur Renal Epithelial Cell Cancelled Calcium Oxalate Crystal Cancelled Uric Acid Crystals Cancelled Triple Phos Crystals Cancelled Other Crystals Cancelled Amorphous Sediment Cancelled Urine Bacteria Cancelled Hyaline Casts Cancelled Granular Casts Cancelled RBC Casts Cancelled WBC Casts Cancelled Other Casts Cancelled Urine Mucus Cancelled Urine Trichomonas Cancelled Urine Yeast Cancelled Urine Sperm Cancelled Ur Culture Indicated? Cancelled Micro UA Comment Cancelled SARS-CoV-2 (PCR) Negative (Negative) 11/17/21 11/17/21 11/17/21 Range/Units 14:35 14:35 16:08 WBC (4.5-11.0) X10^3/uL RBC (4.0-5.2) X10^6/uL Hgb (12.0-16.0) g/dL Hct (36-46) % MCV (80-100) fL MCH (26-34) PG MCHC (30-36) % RDW (11.6-14.8) % Plt Count (150-400) X10^3/uL Neut % (Auto) (50-75) % Lymph % (Auto) (25-40) % [place] % (Auto) (3-14) % Eos % (Auto) (2-4) % Baso % (Auto) (0-2) % Neut # (Auto) (1819-8061) /uL Lymph # (Auto) (0659-7101) /uL [place] # (Auto) (0-900) /uL Eos # (Auto) (0-450) /uL Baso # (Auto) (0-100) /uL Sodium 135 L (137-145) mmol/L Potassium 3.0 L (3.4-5.1) mmol/L Chloride 97 L (98-107) mmol/L Carbon Dioxide 32 (22-32) mmol/L BUN 16 (7-17) mg/dL Creatinine 0.36 L (0.52-1.04) mg/dL Estimated GFR > 60 (>60) mL/min BUN/Creatinine Ratio 44.4 H (6-22) Glucose 114 H (80-110) mg/dL Lactate 0.8 (0.7-2.1) mmol/L Calcium 8.7 (8.4-10.2) mg/dL Total Bilirubin 0.9 (0.2-1.3) mg/dL AST 26 (14-36) IU/L ALT 15 (<35) IU/L Alkaline Phosphatase 46 (38-126) U/L Total Creatine Kinase 26 L (30-135) U/L CK-MB (CK-2) TNP CK-MB (CK-2) Rel Index TNP Troponin I 0.017 (0.01-0.034) ng/mL NT-Pro-B Natriuret Pep 6980 H (<450) pg/mL Total Protein 6.4 (6.3-8.2) g/dL Albumin 3.7 (3.5-5.0) g/dL Globulin 2.7 (1.7-4.1) g/dL Albumin/Globulin Ratio 1.4 (1.0-2.8) Lipase 39 (23-300) U/L Procalcitonin 0.10 (<0.5) ng/mL Urine Color Yellow Urine Appearance Clear Urine pH 7.5 (4.5-8.0) Ur Specific [place] 1.010 (1.000-1.035) Urine Protein Negative (Negative) Urine Glucose (UA) Negative (Negative) g/dL Urine Ketones Negative (NEGATIVE) Urine Occult Blood Negative (Negative) Urine Nitrate Negative (Negative) Urine Bilirubin Negative (NEGATIVE) Urine Urobilinogen 0.2 (0.2) E.U./dL Ur Leukocyte Esterase Negative (NEGATIVE) Urine RBC None seen Urine WBC None seen Ur Squamous Epith Cells 1-5 /hpf Ur Transition Epith Cell Ur Renal Epithelial Cell Calcium Oxalate Crystal Moderate H Uric Acid Crystals Triple Phos Crystals Other Crystals Amorphous Sediment Urine Bacteria None seen Hyaline Casts Granular Casts RBC Casts WBC Casts Other Casts Urine Mucus Urine Trichomonas Urine Yeast Urine Sperm Ur Culture Indicated? Cult not indicated Micro UA Comment SARS-CoV-2 (PCR) (Negative) Point of care testing: Urine Dip Bedside Urine Glucose Negative Bedside Urine Bilirubin - Negative Bedside Urine Ketone - Negative Urine Specific [place] 1.015 Bedside Urine Occult Blood - Negative Bedside Urine pH 7.0 Bedside Urine Protein - Negative Bedside Urine Urobilinogen - Negative Bedside Urine Nitrite - Negative Bedside Urine Leukocytes - Negative Esterase Imaging Data CT scan - abdomen/pelvis: Radiologist's Impression: PROCEDURE:? CT ABDOMEN PELVIS W CON ? INDICATIONS:? mid abdominal pain since last night, nausea/ no emesis ? TECHNIQUE:? After the administration of intravenous contrast, axial sections acquired from the lung bases to the pubic symphysis.? Coronal and sagittal reformats were performed.? For radiation dose reduction, the following was used:? automated exposure control, adjustment of mA and/or kV according to patient size.? ? COMPARISON:? None. ? FINDINGS:? Image quality:? Excellent.? ? Lung bases:? Moderate-sized hiatal hernia is seen with compressive atelectasis in the adjacent left lung base.. Heart:? Heart size is enlarged, no pericardial effusion.? Extensive atherosclerotic disease in coronary vessels and thoracic aorta is seen. ? ABDOMEN: Liver:? Unremarkable.? ? Gallbladder:? Unremarkable. Biliary ducts:? Unremarkable.? ? Pancreas:? Unremarkable.? ? Spleen:? Unremarkable.? ? Adrenal Glands:? Unremarkable.? ? Kidneys and Ureters:? Multiple bilateral renal cysts are seen.? No renal stones or hydronephrosis.? No hydroureter. ? Stomach and Bowel:? There is benavidez.? No abnormal bowel wall thickening or mesenteric fat stranding.? [id number] fecal stasis in the colon is seen extending to rectum.? No abscess collection. Peritoneum:? No abnormal intraperitoneal fluid.? No free air.? ? Ventral Wall: ? No hernias.? Abdominal Nodes:? No retroperitoneal or mesenteric adenopathy by size criteria.? Vessels:? Aorta and inferior vena cava are normal in size.? [id number] atherosclerotic calcifications are seen in abdominal aorta. ? PELVIS: Pelvic Organs:? Unremarkable.? ? Bladder:? Unremarkable.? ? Pelvic Nodes: No enlarged lymph nodes.? Miscellaneous: No hernias are seen. ? ? ? Bones:? Moderate dextroscoliosis of lumbar spine is seen.? Degenerative disc disease throughout lower thoracic and lumbar spine is noted.? No acute compression fracture.? No suspicious bony lesion. ? ? IMPRESSION: 1. Suggestion of mild to moderate constipation and fecal impaction.? No bowel obstruction or abnormal bowel wall thickening.? No abscess collection.? No free fluid or free air. 2. Bilateral renal cysts.? No renal stones or hydronephrosis. 3.? Moderate-sized hiatal hernia with left basilar atelectasis. ? ? Dictated by: Jeffery Kirby M.D. on 11/17/2021 at 15:39 ? ? Approved by: Jeffery Kirby M.D. on 11/17/2021 at 15:42 ? MDM Narrative Medical decision making narrative: This is a 76-year-old female on chronic immunosuppression with history of MS who presents to the emergency department complaining of abdominal pain and was found to have a moderate amount of stool and a fecal impaction. On exam, the stool in her rectum was soft, a large amount was evacuated, approximately 750 mL-1L. Patient reported feeling better without sensation of stool present. CT abdomen and pelvis was obtained which shows [id number] constipation and fecal impaction without bowel obstruction or abnormal bowel wall thickening. No abscess collection, no free fluid or free air. Bilateral renal cysts without renal stones or hydronephrosis. Moderate-sized hiatal hernia with left basilar atelectasis. She did not have any chest pain, shortness of breath, hypoxia, tachypnea, tachycardia, fever or other concerning symptoms. She has a history of Klebsiella UTI, her urine was catheterized and negative for blood, leukocytes, nitrites, was positive for calcium oxalate crystals. Lab work was pertinent for a white blood cell count of 16.7 with a left shift, sodium of 135, potassium of 3.0, chloride of 97, creatinine of 0.36, GFR over 60. Her lactate was 0.8, no elevation to her liver enzymes, her troponin was 0.017, BNP was 6980 which is not significantly high for the patient and her baseline is between 2000 and 4000. Patient does not have any respiratory symptoms, her breath sounds are clear throughout all oliver and diminished mildly in the bases. She needs a lot of help with position changes due to her generalized weakness, she does not have a lot of pelvic floor tone so evacuating her stool was quite difficult for her to do even though it was soft. Discussed starting a bowel regimen and using her caregivers for assistance. Recommend incorporating stool softeners as needed, staying hydrated, and promoting a bowel regimen each day. Encouraged follow-up with primary care, fiber, and return to the emergency department for any new or worsening symptoms. Blood cultures were obtained due to patient's elevated white blood cell count, she does not have any concerning findings on the rest of her workup for sepsis. Her procalcitonin level was 0.10 and her lipase was 39. No peritoneal signs on abdominal exam. Patient remains p.o. tolerant. Serial abdominal exam without increase in abdominal pain. Given history and exam, low suspicion for acute abdominal process, such as acute cholecystitis, pancreatitis, perforated viscus, atypical appendicitis, colitis, diverticulitis or torsion. Extensive conversation about ER return precautions and need for close follow-up. Patient is appropriate and amenable to discharge home. Vital signs are stable on repeat examination is unremarkable. Patient has been informed of results. Patient has been given strict return to ER precautions for any new or worsening symptoms. Patient understands to follow up closely with outpatient providers as instructed. Patient understands plan and agrees to discharge home. All questions and concerns answered at this time. <Claritza Hutson MD - Last Filed: 11/22/21 18:00> Lab Data Labs: Lab Results 11/17/21 11/17/21 11/17/21 Range/Units 13:57 14:06 14:35 WBC 16.7 H (4.5-11.0) X10^3/uL RBC 4.28 (4.0-5.2) X10^6/uL Hgb 13.6 (12.0-16.0) g/dL Hct 39.4 (36-46) % MCV 92.1 (80-100) fL MCH 31.7 (26-34) PG MCHC 34.4 (30-36) % RDW 14.5 (11.6-14.8) % Plt Count 155 (150-400) X10^3/uL Neut % (Auto) 84.2 H (50-75) % Lymph % (Auto) 8.1 L (25-40) % [place] % (Auto) 5.3 (3-14) % Eos % (Auto) 1.4 L (2-4) % Baso % (Auto) 1.0 (0-2) % Neut # (Auto) 25544 H (1248-1761) /uL Lymph # (Auto) 1400 (1927-8005) /uL [place] # (Auto) 900 (0-900) /uL Eos # (Auto) 200 (0-450) /uL Baso # (Auto) 200 H (0-100) /uL Sodium (137-145) mmol/L Potassium (3.4-5.1) mmol/L Chloride (98-107) mmol/L Carbon Dioxide (22-32) mmol/L BUN (7-17) mg/dL Creatinine (0.52-1.04) mg/dL Estimated GFR (>60) mL/min BUN/Creatinine Ratio (6-22) Glucose (80-110) mg/dL Lactate (0.7-2.1) mmol/L Calcium (8.4-10.2) mg/dL Total Bilirubin (0.2-1.3) mg/dL AST (14-36) IU/L ALT (<35) IU/L Alkaline Phosphatase (38-126) U/L Total Creatine Kinase (30-135) U/L CK-MB (CK-2) CK-MB (CK-2) Rel Index Troponin I (0.01-0.034) ng/mL NT-Pro-B Natriuret Pep (<450) pg/mL Total Protein (6.3-8.2) g/dL Albumin (3.5-5.0) g/dL Globulin (1.7-4.1) g/dL Albumin/Globulin Ratio (1.0-2.8) Lipase (23-300) U/L Procalcitonin (<0.5) ng/mL Urine Color Urine Appearance Urine pH (4.5-8.0) Ur Specific [place] (1.000-1.035) Urine Protein (Negative) Urine Glucose (UA) (Negative) g/dL Urine Ketones (NEGATIVE) Urine Occult Blood (Negative) Urine Nitrate (Negative) Urine Bilirubin (NEGATIVE) Urine Urobilinogen (0.2) E.U./dL Ur Leukocyte Esterase (NEGATIVE) Urine RBC Cancelled Urine WBC Cancelled Ur Squamous Epith Cells Cancelled Ur Transition Epith Cell Cancelled Ur Renal Epithelial Cell Cancelled Calcium Oxalate Crystal Cancelled Uric Acid Crystals Cancelled Triple Phos Crystals Cancelled Other Crystals Cancelled Amorphous Sediment Cancelled Urine Bacteria Cancelled Hyaline Casts Cancelled Granular Casts Cancelled RBC Casts Cancelled WBC Casts Cancelled Other Casts Cancelled Urine Mucus Cancelled Urine Trichomonas Cancelled Urine Yeast Cancelled Urine Sperm Cancelled Ur Culture Indicated? Cancelled Micro UA Comment Cancelled SARS-CoV-2 (PCR) Negative (Negative) 11/17/21 11/17/21 11/17/21 Range/Units 14:35 14:35 16:08 WBC (4.5-11.0) X10^3/uL RBC (4.0-5.2) X10^6/uL Hgb (12.0-16.0) g/dL Hct (36-46) % MCV (80-100) fL MCH (26-34) PG MCHC (30-36) % RDW (11.6-14.8) % Plt Count (150-400) X10^3/uL Neut % (Auto) (50-75) % Lymph % (Auto) (25-40) % [place] % (Auto) (3-14) % Eos % (Auto) (2-4) % Baso % (Auto) (0-2) % Neut # (Auto) (8917-6448) /uL Lymph # (Auto) (2257-6989) /uL [place] # (Auto) (0-900) /uL Eos # (Auto) (0-450) /uL Baso # (Auto) (0-100) /uL Sodium 135 L (137-145) mmol/L Potassium 3.0 L (3.4-5.1) mmol/L Chloride 97 L (98-107) mmol/L Carbon Dioxide 32 (22-32) mmol/L BUN 16 (7-17) mg/dL Creatinine 0.36 L (0.52-1.04) mg/dL Estimated GFR > 60 (>60) mL/min BUN/Creatinine Ratio 44.4 H (6-22) Glucose 114 H (80-110) mg/dL Lactate 0.8 (0.7-2.1) mmol/L Calcium 8.7 (8.4-10.2) mg/dL Total Bilirubin 0.9 (0.2-1.3) mg/dL AST 26 (14-36) IU/L ALT 15 (<35) IU/L Alkaline Phosphatase 46 (38-126) U/L Total Creatine Kinase 26 L (30-135) U/L CK-MB (CK-2) TNP CK-MB (CK-2) Rel Index TNP Troponin I 0.017 (0.01-0.034) ng/mL NT-Pro-B Natriuret Pep 6980 H (<450) pg/mL Total Protein 6.4 (6.3-8.2) g/dL Albumin 3.7 (3.5-5.0) g/dL Globulin 2.7 (1.7-4.1) g/dL Albumin/Globulin Ratio 1.4 (1.0-2.8) Lipase 39 (23-300) U/L Procalcitonin 0.10 (<0.5) ng/mL Urine Color Yellow Urine Appearance Clear Urine pH 7.5 (4.5-8.0) Ur Specific [place] 1.010 (1.000-1.035) Urine Protein Negative (Negative) Urine Glucose (UA) Negative (Negative) g/dL Urine Ketones Negative (NEGATIVE) Urine Occult Blood Negative (Negative) Urine Nitrate Negative (Negative) Urine Bilirubin Negative (NEGATIVE) Urine Urobilinogen 0.2 (0.2) E.U./dL Ur Leukocyte Esterase Negative (NEGATIVE) Urine RBC None seen Urine WBC None seen Ur Squamous Epith Cells 1-5 /hpf Ur Transition Epith Cell Ur Renal Epithelial Cell Calcium Oxalate Crystal Moderate H Uric Acid Crystals Triple Phos Crystals Other Crystals Amorphous Sediment Urine Bacteria None seen Hyaline Casts Granular Casts RBC Casts WBC Casts Other Casts Urine Mucus Urine Trichomonas Urine Yeast Urine Sperm Ur Culture Indicated? Cult not indicated Micro UA Comment SARS-CoV-2 (PCR) (Negative) Point of care testing: Urine Dip Bedside Urine Glucose Negative Bedside Urine Bilirubin - Negative Bedside Urine Ketone - Negative Urine Specific [place] 1.015 Bedside Urine Occult Blood - Negative Bedside Urine pH 7.0 Bedside Urine Protein - Negative Bedside Urine Urobilinogen - Negative Bedside Urine Nitrite - Negative Bedside Urine Leukocytes - Negative Esterase Discharge Plan Departure Patient Disposition: Home Clinical Impression: Fecal impaction in rectum Instructions: Constipation, Increased Dietary Fiber May Improve Constipation Conditions With Pelvic Gopi Activity Restrictions/Additional Instructions: *You have been diagnosed with a fecal impaction due to your poor pelvic floor musculature. Your stool was actually quite soft but it was all in your rectum. Today I helped remove a lot of the impacted stool, please stay hydrated, and follow-up with your primary care provider regarding your daily bowel regimen. Please use a suppository as needed to help soften stool, or start taking MiraLax to help bring more water into your stool, eat plenty of fiber to help yourself have a bowel movement, and if you develop any worsening of your symptoms, please come back to the emergency department for evaluation. Please have your caregivers assess your stool load and if it is ready to come out each day. You may need a bowel regimen or assistance evacuating your stool. Please use a barrier cream to help prevent a wound on your coccyx. Change positions frequently, I hope that you start feeling better soon. *What to do: *Please continue to take your regular medications as directed. [ x] New medication prescriptions sent to your pharmacy: [ [facility]] [ ] New medication written as a paper prescription [ ] No new medications given *Please follow up with your primary care provider in 2-3 days, call for an appointment. Let them know you were seen in the Emergency Department and that we asked that you be seen for follow-up. We will electronically transmit a record of today's note if your PCP is in our system *If you do not have a primary care provider please contact [phone] to establish care with one of the [facility] primary care providers. *Return to Emergency Department if you should have any new, worsening, or concerning symptoms, such as [fever greater than 101F, chills, worsening pain, persistent vomiting or other bothersome symptoms]. Prescriptions: New polyethylene glycol 3350 [Miralax] 17 gram/dose powder 17 g PO DAILY Qty: 119 0RF bisacodyl 10 mg suppository 10 mg [place] DAILY PRN (Reason: constipation) Qty: 12 0RF magnesium citrate Solution 150 ml PO DAILY PRN (Reason: constipation) Qty: 296 0RF Rx Instructions: For bowel movement as needed. This is for severe constipation. No Action mupirocin 2 % ointment 1 applictn TOP BID Qty: 30 0RF lorazepam [Ativan] 0.5 MG tablet 0.5 mg PO HS Qty: 90 Label Comments: pt states that she takes as needed folic acid 1 MG tablet 1 mg PO DAILY Qty: 0 multivitamin [Multiple Vitamins] 1 EACH tablet 1 tab PO DAILY Qty: 0 Label Comments: pt has not taken in a while and states she would like to take them again ascorbic acid (vitamin C) 500 MG tablet 1,000 mg PO DAILY Qty: 0 (DME) incontinence supplies Qty: 150 0RF Dose Instruction: As directed Rx Instructions: As directed change up to 5 times daily (DME) wheelchair device See Dose Instructions .ROUTE .MEDSUPPLY Qty: 1 0RF Dose Instruction: As directed Rx Instructions: repair and replace as needed methotrexate sodium 2.5 mg tablet 12.5 mg PO .COMPLEX Qty: 90 3RF Rx Instructions: 12.5 mg PO Take 5 tablets in the morning and 5 in the afternoon once weekly; Tuesdays atorvastatin 40 mg tablet See Rx Instructions .ROUTE .COMPLEX Qty: 90 1RF Dose Instruction: TAKE 1 TABLET BY MOUTH DAILY Rx Instructions: TAKE 1 TABLET BY MOUTH DAILY ([facility] [place] david lift See Rx Instructions .Route .MEDSUPPLY Qty: 1 0RF Rx Instructions: As directed ([facility] [place]) purewick female catheter See Rx Instructions .Route .MEDSUPPLY Qty: 1 6RF Rx Instructions: One full box of 30 please. As directed ([facility] [place]) purewick suction canister See Rx Instructions .Route .MEDSUPPLY Qty: 1 6RF Rx Instructions: As directed ([facility] [place]) purewick replacement canisters See Rx Instructions .Route .MEDSUPPLY Qty: 1 6RF Rx Instructions: As directed Eliquis 5 mg tablet 5 mg PO BID Qty: 60 1RF potassium chloride 10 mEq capsule, extended release See Rx Instructions .ROUTE .COMPLEX Qty: 60 5RF Dose Instruction: TAKE 1 CAPSULE BY MOUTH TWICE DAILY Rx Instructions: TAKE 1 CAPSULE BY MOUTH TWICE DAILY hydroxychloroquine [Plaquenil] 200 mg tablet 200 mg PO BID Qty: 180 3RF amiodarone 200 mg tablet 200 mg PO DAILY Qty: 30 0RF prednisone 20 mg tablet 20 mg PO DAILY Qty: 12 0RF Rx Instructions: Take 3 tabs daily for 2 days, 2 tabs daily for 2 days, 1 tab daily for 2 days, then usual prednisone dosing furosemide 20 mg tablet 20 mg PO DAILY Qty: 10 0RF Referrals: Radha Negron MD [Primary Care Provider] - Visit Report Forms: Patient Portal/API <Claritza Hutson MD - Last Filed: 11/22/21 18:00> Cosign ED Attending Coszenature Attestation: I was immediately available in the department for consultation throughout this patient's visit. I agree with documentation as above. Claritza Hutson MD
--- NOTE | 2021-11-17 14:13 | DI.CT.S_ITS ---
PROCEDURE: CT ABDOMEN PELVIS W CON INDICATIONS: mid abdominal pain since last night, nausea/ no emesis TECHNIQUE: After the administration of intravenous contrast, axial sections acquired from the lung bases to the pubic symphysis. Coronal and sagittal reformats were performed. For radiation dose reduction, the following was used: automated exposure control, adjustment of mA and/or kV according to patient size. COMPARISON: None. FINDINGS: Image quality: Excellent. Lung bases: Moderate-sized hiatal hernia is seen with compressive atelectasis in the adjacent left lung base.. Heart: Heart size is enlarged, no pericardial effusion. Extensive atherosclerotic disease in coronary vessels and thoracic aorta is seen. ABDOMEN: Liver: Unremarkable. Gallbladder: Unremarkable. Biliary ducts: Unremarkable. Pancreas: Unremarkable. Spleen: Unremarkable. Adrenal Glands: Unremarkable. Kidneys and Ureters: Multiple bilateral renal cysts are seen. No renal stones or hydronephrosis. No hydroureter. Stomach and Bowel: There is benavidez. No abnormal bowel wall thickening or mesenteric fat stranding. [id number] fecal stasis in the colon is seen extending to rectum. No abscess collection. Peritoneum: No abnormal intraperitoneal fluid. No free air. Ventral Wall: No hernias. Abdominal Nodes: No retroperitoneal or mesenteric adenopathy by size criteria. Vessels: Aorta and inferior vena cava are normal in size. [id number] atherosclerotic calcifications are seen in abdominal aorta. PELVIS: Pelvic Organs: Unremarkable. Bladder: Unremarkable. Pelvic Nodes: No enlarged lymph nodes. Miscellaneous: No hernias are seen. Bones: Moderate dextroscoliosis of lumbar spine is seen. Degenerative disc disease throughout lower thoracic and lumbar spine is noted. No acute compression fracture. No suspicious bony lesion. IMPRESSION: 1. Suggestion of mild to moderate constipation and fecal impaction. No bowel obstruction or abnormal bowel wall thickening. No abscess collection. No free fluid or free air. 2. Bilateral renal cysts. No renal stones or hydronephrosis. 3. Moderate-sized hiatal hernia with left basilar atelectasis. Dictated by: Jeffery Kirby M.D. on 11/17/2021 at 15:39 Approved by: Jeffery Kirby M.D. on 11/17/2021 at 15:42
[2021-11-17 14:15] LABS: COVID19 -Nasal RAPID Negative (Negative)
[2021-11-17 14:52] LABS: Add Manual Diff / Slide Review NO; Basophils Absolute Auto 200 /uL (0-100); Eosinophils Absolute Auto 200 /uL (0-450); Eosinophils Percent Auto 1.4 % (2-4); Hematocrit 39.4 % (36-46); Hemoglobin 13.6 g/dL (12.0-16.0); Lymphocytes Absolute Auto 1400 /uL (1100-4500); Lymphocytes Percent Auto 8.1 % (25-40); Mean Corpuscular HGB Conc 34.4 % (30-36); Mean Corpuscular Hemoglobin 31.7 PG (26-34); Mean Corpuscular Volume 92.1 fL (80-100); Monocytes Absolute Auto 900 /uL (0-900); Monocytes Percent Auto 5.3 % (3-14); Neutrophils Absolute Auto 14100 /uL (1500-7000); Neutrophils Percent Auto 84.2 % (50-75); Platelet Count 155 X10^3/uL (150-400); Red Blood Cell Count 4.28 X10^6/uL (4.0-5.2); Red Cell Distribution Width 14.5 % (11.6-14.8); White Blood Cell Count 16.7 X10^3/uL (4.5-11.0)
[2021-11-17 15:29] LABS: Alanine Aminotransferase 15 IU/L (<35); Albumin 3.7 g/dL (3.5-5.0); Albumin Globulin Ratio 1.4 (1.0-2.8); Alkaline Phosphatase 46 U/L (38-126); Aspartate Aminotransferase 26 IU/L (14-36); BUN Creatinine Ratio 44.4 (6-22); Bilirubin Total 0.9 mg/dL (0.2-1.3); Blood Urea Nitrogen 16 mg/dL (7-17); Calcium 8.7 mg/dL (8.4-10.2); Carbon Dioxide 32 mmol/L (22-32); Chloride 97 mmol/L (98-107); Creatine Kinase 26 U/L (30-135); Estimated Glomerular Filt Rate > 60 mL/min (>60); Globulin 2.7 g/dL (1.7-4.1); Glucose 114 mg/dL (80-110); HEMOLYSIS < 15 (0-50); Lipase 39 U/L (23-300); Sodium 135 mmol/L (137-145); Total Protein 6.4 g/dL (6.3-8.2)
[2021-11-17 15:30] LABS: Lactate (Lactic Acid) 0.8 mmol/L (0.7-2.1)
[2021-11-17 15:40] LABS: NT-proBNP (BNP-Adult 18+) 6980 pg/mL (<450); Troponin I 0.017 ng/mL (0.01-0.034)
[2021-11-17] MEDS: POTASSIUM CHLORIDE 20 MEQ/15 ML UDC 40 MEQ PO (15:41)
[2021-11-17] MEDS: SODIUM CHLORIDE 0.9% 1,000 ML 1000 ML IV (15:41)
[2021-11-17] MEDS: ONDANSETRON 4 MG/2 ML INJ IV (15:41)
[2021-11-17 16:43] LABS: Appearance Urine UA CLEAR; Bilirubin Urine UA NEGATIVE (NEGATIVE); Color Urine UA YELLOW; Glucose Urine UA NEGATIVE (Negative); Ketones Urine UA NEGATIVE (NEGATIVE); Leukocyte Esterase Urine UA NEGATIVE (NEGATIVE); Nitrite Urine UA NEGATIVE (Negative); Occult Blood Urine UA NEGATIVE (Negative); Protein Urine UA NEGATIVE (Negative); Urobilinogen Urine UA 0.2 E.U./dL (0.2)
[2021-11-17] MEDS: BISACODYL 10 MG SUPP PR (16:49)
[2021-11-17 16:54] LABS: pH Urine UA 7.5 (4.5-8.0)
[2021-11-17 17:21] LABS: RBC Urine None Seen (0-5/HPF); WBC Urine None Seen (0-5/HPF)
[2021-11-17 17:23] LABS: Bacteria Urine None Seen; Calcium Oxalate Crystals Urine Moderate; Culture Indicated Urine Cult Not Indicated; Squamous Epithelial Cell Urine 1-5 /HPF (0-5/HPF)
== END 2021-11-17 19:35 | disposition home or self-care (01) ==
PROVIDERS: Emergency Provider Nurse Practitioner Critical Care Medicine; PCP Family Medicine
DX: K56.41 Fecal impaction (principal); R11.0 Nausea; Z20.822 Contact with and (suspected) exposure to COVID-19; G35 Multiple sclerosis
CPT/HCPCS: 36415; 51701; 74177; 80053; 81001; 81003; 82550; 83605; 83690; 83880; 84145; 84484; 85025; 87040; 87086; 87635; 96361; 96374; 99284; C9803; J2405; Q9967

== ENCOUNTER 2021-12-03 20:19 | Inpatient (IN) | payer OTHER, MEDICAID, SELFPAY ==
[2021-07-10 23:00] VITALS: PULSE 59; RESP 15; O2SAT 100
[2021-10-22 19:04] VITALS: BMI 33.7
[2021-12-03] VITALS (41 sets, daily range): BP systolic 58–133; BP diastolic 25–92; PULSE 75–109; RESP 9–54; TEMP 36.9; O2SAT 91–99
--- NOTE | 2021-12-03 20:25 | DI.RAD.S_ITS ---
PROCEDURE: XR CHEST 1V INDICATIONS: fall, trauma, preop TECHNIQUE: One view of the chest was acquired. COMPARISON: [facility], CT, CT ABDOMEN PELVIS W CON, 11/17/2021, 14:53. [facility], CR, XR CHEST 1V, 10/21/2021, 13:36. FINDINGS: Surgical changes and devices: None. Lungs and pleura: Evaluation limited by patient rotation and low lung volumes. There are diffuse patchy bilateral airspace opacities with areas of confluence in the lung bases. There is also bilateral pulmonary edema. No definite pleural effusions or pneumothorax. Mediastinum: Mediastinal contours appear grossly unchanged but are not well evaluated due to rotation. Bones and chest wall: No displaced fractures identified. No suspicious bony lesions. Overlying soft tissues appear unremarkable. IMPRESSION: 1. Bilateral patchy airspace opacities with areas of confluence in the lung bases are nonspecific and the differential includes consolidation/pneumonia, asymmetric edema, or contusions. 2. Bilateral pulmonary edema. 3. Limited study due to patient rotation and low lung volumes. Dictated by: Guy Gutierrez M.D. on 12/03/2021 at 21:43 Approved by: Guy Gutierrez M.D. on 12/03/2021 at 21:45
[2021-12-03 20:30] LABS: Add Manual Diff / Slide Review NO; Basophils Absolute Auto 200 /uL (0-100); Basophils Percent Auto 1.1 % (0-2); Eosinophils Absolute Auto 500 /uL (0-450); Eosinophils Percent Auto 2.7 % (2-4); Hematocrit 40.6 % (36-46); Lymphocytes Absolute Auto 8400 /uL (1100-4500); Mean Corpuscular Hemoglobin 30.1 PG (26-34); Mean Corpuscular Volume 94.1 fL (80-100); Monocytes Absolute Auto 1300 /uL (0-900); Monocytes Percent Auto 6.6 % (3-14); Neutrophils Absolute Auto 9100 /uL (1500-7000); Neutrophils Percent Auto 46.6 % (50-75); Platelet Count 262 X10^3/uL (150-400); Red Blood Cell Count 4.32 X10^6/uL (4.0-5.2); Red Cell Distribution Width 15.2 % (11.6-14.8); White Blood Cell Count 19.6 X10^3/uL (4.5-11.0)
--- NOTE | 2021-12-03 20:37 | ED.SOB ---
HPI - SOB/Dyspnea General Chief Complaint: Shortness of Breath/Dyspnea Stated Complaint: SOB Time Seen by Provider: 12/03/21 20:24 History of Present Illness HPI Narrative: 76-year-old female nonsmoker with history of CHF, AFib with RVR, left bundle-branch block presents with a sudden onset of respiratory distress per nursing staff at her facility. She had been in her baseline and nursing staff reports a relatively sudden onset increased work of breathing and shortness of breath. She is a DNR DNI with limited intervention. She contributes very little to a review of systems. Patient initially with sats in the low 80s with significant increased work of breathing and altered mental status Related Data Home Medications Medication Instructions Recorded Confirmed ascorbic acid (vitamin C) 500 mg 1,000 mg PO DAILY ##0 02/10/16 07/24/21 tablet folic acid 1 mg tablet 1 mg PO DAILY ##0 02/10/16 07/24/21 lorazepam 0.5 mg tablet (Ativan) 0.5 mg PO HS #90 tabs 02/10/16 07/24/21 multivitamin (Multiple Vitamins 1 tab PO DAILY ##0 02/10/16 07/24/21 tablet) Previous Rx's Medication Instructions Recorded mupirocin 2 % topical ointment 1 applictn topical BID #30 grams 04/06/18 incontinence supplies #150 ea 05/05/18 wheelchair #1 ea 07/24/18 methotrexate sodium 2.5 mg tablet 12.5 mg PO .COMPLEX #90 tabs 12/10/20 atorvastatin 40 mg tablet See Rx Instructions .Route 12/15/20 .COMPLEX #90 tabs david lift #1 ea 04/14/21 amiodarone 200 mg tablet 200 mg PO DAILY #30 tabs 07/19/21 purewick female catheter #1 ea 08/03/21 purewick replacement canisters #1 ea 08/03/21 purewick suction canister #1 ea 08/03/21 apixaban 5 mg tablet (Eliquis) 5 mg PO BID #60 tabs 08/07/21 potassium chloride 10 mEq See Rx Instructions .Route 08/11/21 capsule,extended release .COMPLEX #60 caps hydroxychloroquine 200 mg tablet 200 mg PO BID #180 tabs 10/16/21 (Plaquenil) prednisone 20 mg tablet 20 mg PO DAILY #12 tabs 10/24/21 magnesium citrate 150 ml PO DAILY PRN constipation 11/17/21 #296 mL polyethylene glycol 3350 17 17 g PO DAILY #119 grams 11/17/21 gram/dose oral powder (Miralax) bisacodyl 5 mg tablet,delayed 5 mg PO BEDTIME PRN as needed for 11/25/21 release (Alophen (bisacodyl)) constipation #30 tabs furosemide 20 mg tablet 20 mg PO DAILY #90 tabs 11/25/21 Allergies Allergy/AdvReac Type Severity Reaction Status Date / Time NSAIDS (Non-Steroidal Allergy Mild Verified 12/03/21 20:36 Anti-Inflamma [NSAIDS (NON-STEROIDAL ANTI-INFLAMMA] Review of Systems Review of Systems ROS Unobtainable: Unobtainable due to mental status/LOC Patient History Medical History Hyperlipidemia Rheumatoid arthritis Social History household members: none Smoking Status: Never smoker alcohol intake: never Smoking Status: Never smoker Substance Use Type: does not use Exam Narrative Exam Narrative: GENERAL: [76] year old patient appears older than stated age. Obvious evidence of acute on chronic illness in significant respiratory distress with rapid shallow breathing HEAD: Atraumatic. Normocephalic. EYES: Pupils equal round and reactive. Extraocular motions intact. No scleral icterus. No injection or drainage. ENT: Dry mucous membranes Nose without bleeding, purulent drainage. Throat without erythema, tonsillar hypertrophy or exudate. Airway patent. NECK: Trachea midline. Non tender CARDIOVASCULAR: Regular rate and rhythm without murmurs, gallops, or rubs. RESPIRATORY: Rapid shallow breathing with increased use of accessory muscles including intercostals, decreased breath sounds throughout with prolonged expiratory phase GASTROINTESTINAL: Abdomen soft, non-tender, nondistended. EXTREMITIES: No edema or joint tenderness. BACK: Nontender without deformity or crepitance. No flank tenderness. NEURO: AOx3. SKIN: No rash or erythema of visible areas Initial Vital Signs Initial Vital Signs: Vital Signs Temperature 98.4 F 12/03/21 20:30 Pulse Rate 93 H 12/03/21 20:30 Respiratory Rate 40 H 12/03/21 20:30 Blood Pressure 118/92 H 12/03/21 20:30 Pulse Oximetry 96 12/03/21 20:30 Oxygen Delivery Method 12/03/21 20:30 Oxygen Flow Rate 10 12/03/21 20:30 Procedures Central Line Placement Right IJ: Time Out Performed: Yes Patient Placed on Monitor/Pulse Ox: Yes MD Prep: mask, gown and gloves Central Line Prep: Chlorhexidine scrub and sterile drapes applied Local Anesthetic: lidocaine 1% Amount of anesthesia used (mL): 3 Ultrasound Used for Placement: Yes Central Line Lumen Inserted: triple Post Procedure: good blood return, all ports aspirated, flushed, capped and sterile dressing applied Post Procedure X-Ray: tip of catheter in good position and no pneumothorax seen Patient Tolerated Procedure: Well Complications: none Course Orders Ordered: ED Orders 12/03/21 20:25 XR chest 1V Stat 12/03/21 20:26 Complete Blood Count AUTO DIFF Stat Comprehensive Metabolic Panel Stat D Dimer Stat Lactate (Lactic Acid) Stat NT-proBNP (BNP-Adult 18+) Stat Procalcitonin Stat Prothrombin Time INR Stat Troponin & CK Cardiac Panel Stat 12/03/21 20:35 Blood Culture Stat 12/03/21 20:40 COVID19 -Nasal RAPID/Pre-Proc Stat 12/03/21 21:00 Bi-Level Settings Now 12/03/21 21:14 Arterial Blood Gas Stat 12/03/21 21:32 EKG-12 Lead Stat 12/04/21 00:15 High flow/High humidity nasal NOW 12/04/21 04:32 Chest [XR chest 1V] Stat NOREPINEPHRINE BITARTRATE/D5W (Levophed) 4 mg in 250 mls @ 30 mls/hr IV TITRATE MÓNICA; Protocol Last Titration: 12/04/21 04:48 Dose: 2.13 mcg/min, 8 mls/hr Documented By: DKScott Titration: 12/04/21 03:25 Dose: 0 mcg/min, 0 mls/hr Documented By: Titration: 12/04/21 02:41 Dose: 3 mcg/min, 11.25 mls/hr Documented By: Titration: 12/04/21 02:11 Dose: 4 mcg/min, 15 mls/hr Documented By: Titration: 12/04/21 01:50 Dose: 5 mcg/min, 18.75 mls/hr Documented By: Titration: 12/04/21 00:13 Dose: 6 mcg/min, 22.5 mls/hr Documented By: Admin: 12/03/21 22:10 Dose: 8 mcg/min, 30 mls/hr Documented By: LINDESY Sodium Chloride (Normal Saline 0.9%) 1,000 mls @ 150 mls/hr IV CONT MÓNICA Last Admin: 12/04/21 01:52 Dose: 150 mls/hr Documented By: KRYSTEN Discontinued Medications Furosemide (Furosemide 40 Mg/4 Ml Vial) 40 mg IV NOW ONE Stop: 12/03/21 21:22 Last Admin: 12/03/21 21:30 Dose: 40 mg Documented By: KRYSTEN Sodium Chloride (Normal Saline 0.9%) 1,360.77 mls @ 453.59 mls/hr 30 ml/kg infuse over 3 hr (1360.77 ml) IV NOW ONE Stop: 12/04/21 00:22 Last Infusion: 12/03/21 22:49 Dose: 0 mls/hr Documented By: Admin: 12/03/21 21:26 Dose: 453.59 mls/hr Documented By: KRYSTEN Levofloxacin (Levaquin) 750 mg in 150 mls @ 100 mls/hr IV NOW ONE Stop: 12/03/21 22:52 Last Infusion: 12/03/21 22:49 Dose: 0 mls/hr Documented By: Admin: 12/03/21 21:30 Dose: 100 mls/hr Documented By: KRYSTEN Piperacillin Sod/Tazobactam (Sod 4.5 gm/ Sodium Chloride) 100 mls @ 200 mls/hr IV NOW ONE Stop: 12/04/21 05:17 Reevaluation(s) Reevaluation #1: Patient nearly immediately switched over to BiPAP and has significant improvement in her work of breathing and pulse oximetry. Reevaluation #2: Patient with increasing drops in her blood pressure initially in the 70s and 60s and now in the 50s, fluid bolus ordered and push dose pressors ordered Consultations Consultation #1: Discussion with Dr. Granado who was happy to expect on behalf of Dr. Negron, request consultation with materials supervisor Consultation #2: Discussed with materials supervisor, will evaluate patient on arrival to ICU Vital Signs Vital signs: Vital Signs - 8 hr 12/03/21 21:25 12/03/21 21:25 12/03/21 21:30 Pulse Rate 103 H Respiratory Rate 28 H Blood Pressure 72/41 L 70/40 L Pulse Oximetry 94 Fraction of Inspired Oxygen 12/03/21 21:30 12/03/21 21:53 12/03/21 21:53 Pulse Rate 100 H 93 H Respiratory Rate 54 H 33 H Blood Pressure 67/29 L Pulse Oximetry 94 95 Fraction of Inspired Oxygen 12/03/21 21:56 12/03/21 21:56 12/03/21 21:59 Pulse Rate 91 H Respiratory Rate 29 H Blood Pressure 59/25 L 58/32 L Pulse Oximetry 95 Fraction of Inspired Oxygen 12/03/21 21:59 12/03/21 22:00 12/03/21 22:00 Pulse Rate 90 90 Respiratory Rate 40 H 31 H Blood Pressure 58/37 L Pulse Oximetry 96 96 Fraction of Inspired Oxygen 12/03/21 22:07 12/03/21 22:07 12/03/21 22:11 Pulse Rate 99 H Respiratory Rate 25 H Blood Pressure 69/35 L 60/34 L Pulse Oximetry 96 Fraction of Inspired Oxygen 12/03/21 22:11 12/03/21 22:12 12/03/21 22:12 Pulse Rate 85 85 Respiratory Rate 23 27 H Blood Pressure 61/38 L Pulse Oximetry 96 97 Fraction of Inspired Oxygen 12/03/21 22:21 12/03/21 22:21 12/03/21 22:24 Pulse Rate 80 80 Respiratory Rate 21 20 Blood Pressure 75/41 L Pulse Oximetry 97 97 Fraction of Inspired Oxygen 12/03/21 22:24 12/03/21 22:28 12/03/21 22:28 Pulse Rate 78 Respiratory Rate 23 Blood Pressure 77/48 L 73/46 L Pulse Oximetry 98 Fraction of Inspired Oxygen 12/03/21 22:30 12/03/21 22:31 12/03/21 22:32 Pulse Rate 78 77 Respiratory Rate 24 28 H Blood Pressure 74/50 L Pulse Oximetry 98 98 Fraction of Inspired Oxygen 12/03/21 22:32 12/03/21 22:36 12/03/21 22:36 Pulse Rate 82 83 Respiratory Rate 32 H 35 H Blood Pressure 76/51 L Pulse Oximetry 98 98 Fraction of Inspired Oxygen 12/03/21 22:40 12/03/21 22:40 12/03/21 23:00 Pulse Rate 82 79 Respiratory Rate 28 H 23 Blood Pressure 80/50 L Pulse Oximetry 98 98 Fraction of Inspired Oxygen 12/03/21 23:18 12/03/21 23:18 12/03/21 23:20 Pulse Rate 76 Respiratory Rate 33 H Blood Pressure 90/53 L 106/52 L Pulse Oximetry 98 Fraction of Inspired Oxygen 12/03/21 23:20 12/03/21 23:24 12/03/21 23:24 Pulse Rate 76 75 Respiratory Rate 24 27 H Blood Pressure 110/56 L Pulse Oximetry 98 98 Fraction of Inspired Oxygen 12/03/21 23:28 12/03/21 23:28 12/03/21 23:30 Pulse Rate 79 81 Respiratory Rate 38 H 43 H Blood Pressure 112/53 L Pulse Oximetry 99 99 Fraction of Inspired Oxygen 12/03/21 23:33 12/03/21 23:33 12/03/21 23:36 Pulse Rate 81 Respiratory Rate 44 H Blood Pressure 116/66 120/64 Pulse Oximetry 98 Fraction of Inspired Oxygen 12/03/21 23:36 12/03/21 23:40 12/03/21 23:40 Pulse Rate 79 77 Respiratory Rate 34 H 40 H Blood Pressure 129/67 Pulse Oximetry 98 98 Fraction of Inspired Oxygen 12/03/21 23:44 12/03/21 23:44 12/03/21 23:49 Pulse Rate 78 Respiratory Rate 31 H Blood Pressure 126/58 L 118/51 L Pulse Oximetry 99 Fraction of Inspired Oxygen 12/03/21 23:49 12/03/21 23:53 12/03/21 23:53 Pulse Rate 79 78 Respiratory Rate 47 H 39 H Blood Pressure 121/49 L Pulse Oximetry 99 98 Fraction of Inspired Oxygen 12/03/21 23:56 12/03/21 23:56 12/04/21 00:00 Pulse Rate 77 79 Respiratory Rate 26 H 45 H Blood Pressure 133/63 Pulse Oximetry 98 99 Fraction of Inspired Oxygen 12/04/21 00:04 12/04/21 00:04 12/04/21 00:08 Pulse Rate 92 H Respiratory Rate 44 H Blood Pressure 141/73 H 136/99 H Pulse Oximetry 93 Fraction of Inspired Oxygen 12/04/21 00:08 12/04/21 00:13 12/04/21 00:13 Pulse Rate 85 77 Respiratory Rate 48 H 22 Blood Pressure 106/41 L Pulse Oximetry 98 97 Fraction of Inspired Oxygen 12/04/21 00:17 12/04/21 00:17 12/04/21 00:20 Pulse Rate 80 82 Respiratory Rate 33 H 31 H Blood Pressure 112/59 L Pulse Oximetry 96 94 Fraction of Inspired Oxygen 12/04/21 00:20 12/04/21 00:25 12/04/21 00:25 Pulse Rate 80 Respiratory Rate 30 H Blood Pressure 115/55 L 112/80 Pulse Oximetry 97 Fraction of Inspired Oxygen 12/04/21 00:29 12/04/21 00:29 12/04/21 00:30 Pulse Rate 79 79 Respiratory Rate 27 H 22 Blood Pressure 107/59 L Pulse Oximetry 98 98 Fraction of Inspired Oxygen 12/04/21 00:32 12/04/21 00:32 12/04/21 00:36 Pulse Rate 79 Respiratory Rate 25 H Blood Pressure 94/55 L 94/56 L Pulse Oximetry 97 Fraction of Inspired Oxygen 12/04/21 00:36 12/03/21 23:15 12/04/21 00:15 Pulse Rate 79 79 Respiratory Rate 25 H 25 H Blood Pressure 110/60 94/56 L Pulse Oximetry 97 97 Fraction of Inspired Oxygen 30 12/04/21 00:40 12/04/21 00:40 12/04/21 00:44 Pulse Rate 77 Respiratory Rate 35 H Blood Pressure 93/58 L 92/58 L Pulse Oximetry 96 Fraction of Inspired Oxygen 12/04/21 00:44 12/04/21 00:48 12/04/21 00:48 Pulse Rate 79 79 Respiratory Rate 26 H 38 H Blood Pressure 95/52 L Pulse Oximetry 98 96 Fraction of Inspired Oxygen 12/04/21 00:52 12/04/21 00:52 12/04/21 00:56 Pulse Rate 76 Respiratory Rate 25 H Blood Pressure 97/57 L 106/56 L Pulse Oximetry 97 Fraction of Inspired Oxygen 12/04/21 00:56 12/04/21 01:00 12/04/21 01:00 Pulse Rate 75 75 Respiratory Rate 28 H 25 H Blood Pressure 99/57 L Pulse Oximetry 97 97 Fraction of Inspired Oxygen 12/04/21 01:04 12/04/21 01:04 12/04/21 01:08 Pulse Rate 75 75 Respiratory Rate 23 16 Blood Pressure 97/56 L Pulse Oximetry 97 97 Fraction of Inspired Oxygen 12/04/21 01:08 12/04/21 01:12 12/04/21 01:12 Pulse Rate 75 Respiratory Rate 16 Blood Pressure 101/57 L 110/56 L Pulse Oximetry 97 Fraction of Inspired Oxygen 12/04/21 01:16 12/04/21 01:16 12/04/21 01:20 Pulse Rate 76 Respiratory Rate 25 H Blood Pressure 99/52 L 96/53 L Pulse Oximetry 97 Fraction of Inspired Oxygen 12/04/21 01:20 12/04/21 01:24 12/04/21 01:24 Pulse Rate 75 77 Respiratory Rate 18 35 H Blood Pressure 101/60 Pulse Oximetry 97 98 Fraction of Inspired Oxygen 12/04/21 01:28 12/04/21 01:28 12/04/21 01:30 Pulse Rate 79 79 Respiratory Rate 30 H 34 H Blood Pressure 90/59 L Pulse Oximetry 97 98 Fraction of Inspired Oxygen 12/04/21 01:32 12/04/21 01:32 12/04/21 01:36 Pulse Rate 79 Respiratory Rate 29 H Blood Pressure 93/57 L 101/59 L Pulse Oximetry 97 Fraction of Inspired Oxygen 12/04/21 01:36 12/04/21 01:41 12/04/21 01:41 Pulse Rate 79 79 Respiratory Rate 30 H 30 H Blood Pressure 113/62 Pulse Oximetry 98 98 Fraction of Inspired Oxygen 12/04/21 01:44 12/04/21 01:44 12/04/21 01:48 Pulse Rate 77 Respiratory Rate 31 H Blood Pressure 85/49 L 83/50 L Pulse Oximetry 98 Fraction of Inspired Oxygen 12/04/21 01:48 12/04/21 01:53 12/04/21 01:53 Pulse Rate 76 77 Respiratory Rate 28 H 40 H Blood Pressure 106/62 Pulse Oximetry 98 98 Fraction of Inspired Oxygen 12/04/21 01:56 12/04/21 01:56 12/04/21 02:00 Pulse Rate 76 Respiratory Rate 34 H Blood Pressure 97/56 L 93/57 L Pulse Oximetry 98 Fraction of Inspired Oxygen 12/04/21 02:00 12/04/21 02:04 12/04/21 02:04 Pulse Rate 74 74 Respiratory Rate 24 21 Blood Pressure 99/61 Pulse Oximetry 97 98 Fraction of Inspired Oxygen 12/04/21 02:08 12/04/21 02:08 12/04/21 02:12 Pulse Rate 75 Respiratory Rate 15 Blood Pressure 102/61 104/64 Pulse Oximetry 97 Fraction of Inspired Oxygen 12/04/21 02:12 12/04/21 02:16 12/04/21 02:16 Pulse Rate 75 76 Respiratory Rate 15 22 Blood Pressure 109/55 L Pulse Oximetry 97 97 Fraction of Inspired Oxygen 12/04/21 02:20 12/04/21 02:20 12/04/21 02:24 Pulse Rate 75 Respiratory Rate 25 H Blood Pressure 110/55 L 109/58 L Pulse Oximetry 97 Fraction of Inspired Oxygen 12/04/21 02:24 12/04/21 02:28 12/04/21 02:28 Pulse Rate 76 75 Respiratory Rate 23 26 H Blood Pressure 111/58 L Pulse Oximetry 97 98 Fraction of Inspired Oxygen 12/04/21 02:30 12/04/21 02:40 12/04/21 02:40 Pulse Rate 74 80 Respiratory Rate 39 H 31 H Blood Pressure 107/57 L Pulse Oximetry 98 98 Fraction of Inspired Oxygen 12/04/21 02:44 12/04/21 02:44 12/04/21 02:48 Pulse Rate 73 Respiratory Rate 19 Blood Pressure 107/51 L 101/51 L Pulse Oximetry 99 Fraction of Inspired Oxygen 12/04/21 02:48 12/04/21 02:52 12/04/21 02:52 Pulse Rate 72 70 Respiratory Rate 22 27 H Blood Pressure 92/59 L Pulse Oximetry 98 98 Fraction of Inspired Oxygen 12/04/21 02:56 12/04/21 02:56 12/04/21 03:00 Pulse Rate 71 Respiratory Rate 19 Blood Pressure 94/55 L 94/51 L Pulse Oximetry 98 Fraction of Inspired Oxygen 12/04/21 03:00 12/04/21 03:04 12/04/21 03:04 Pulse Rate 71 72 Respiratory Rate 20 22 Blood Pressure 95/52 L Pulse Oximetry 98 98 Fraction of Inspired Oxygen 12/04/21 03:08 12/04/21 03:08 12/04/21 03:12 Pulse Rate 71 Respiratory Rate 19 Blood Pressure 94/54 L 91/55 L Pulse Oximetry 99 Fraction of Inspired Oxygen 12/04/21 03:12 12/04/21 03:17 12/04/21 03:17 Pulse Rate 71 71 Respiratory Rate 18 26 H Blood Pressure 92/52 L Pulse Oximetry 98 99 Fraction of Inspired Oxygen 12/04/21 03:20 12/04/21 03:20 12/04/21 03:29 Pulse Rate 71 Respiratory Rate 26 H Blood Pressure 94/54 L 90/54 L Pulse Oximetry 98 Fraction of Inspired Oxygen 12/04/21 03:29 12/04/21 03:30 12/04/21 03:32 Pulse Rate 74 74 Respiratory Rate 27 H 23 Blood Pressure 85/53 L Pulse Oximetry 98 99 Fraction of Inspired Oxygen 12/04/21 03:32 12/04/21 03:36 12/04/21 03:36 Pulse Rate 74 70 Respiratory Rate 23 18 Blood Pressure 85/50 L Pulse Oximetry 98 97 Fraction of Inspired Oxygen 12/04/21 03:40 12/04/21 03:40 12/04/21 03:44 Pulse Rate 68 Respiratory Rate 17 Blood Pressure 84/53 L 83/52 L Pulse Oximetry 97 Fraction of Inspired Oxygen 12/04/21 03:44 12/04/21 03:48 12/04/21 03:48 Pulse Rate 69 68 Respiratory Rate 19 16 Blood Pressure 88/54 L Pulse Oximetry 97 98 Fraction of Inspired Oxygen 12/04/21 03:52 12/04/21 03:52 12/04/21 03:56 Pulse Rate 68 Respiratory Rate 15 Blood Pressure 81/53 L 84/51 L Pulse Oximetry 97 Fraction of Inspired Oxygen 12/04/21 03:56 12/04/21 04:00 12/04/21 04:01 Pulse Rate 68 74 Respiratory Rate 17 26 H Blood Pressure 81/56 L Pulse Oximetry 97 98 Fraction of Inspired Oxygen 12/04/21 04:01 12/04/21 04:08 12/04/21 04:08 Pulse Rate 75 72 Respiratory Rate 28 H 23 Blood Pressure 105/65 Pulse Oximetry 98 97 Fraction of Inspired Oxygen 12/04/21 04:12 12/04/21 04:12 12/04/21 04:16 Pulse Rate 73 Respiratory Rate 21 Blood Pressure 105/64 112/65 Pulse Oximetry 97 Fraction of Inspired Oxygen 12/04/21 04:16 12/04/21 04:20 12/04/21 04:20 Pulse Rate 73 71 Respiratory Rate 22 17 Blood Pressure 112/64 Pulse Oximetry 96 96 Fraction of Inspired Oxygen 12/04/21 04:24 12/04/21 04:24 12/04/21 04:28 Pulse Rate 74 Respiratory Rate 16 Blood Pressure 119/65 106/56 L Pulse Oximetry 96 Fraction of Inspired Oxygen 12/04/21 04:28 12/04/21 04:30 12/04/21 04:32 Pulse Rate 73 72 Respiratory Rate 21 18 Blood Pressure 94/51 L Pulse Oximetry 97 98 Fraction of Inspired Oxygen 12/04/21 04:32 12/04/21 04:36 12/04/21 04:36 Pulse Rate 72 69 Respiratory Rate 17 29 H Blood Pressure 108/56 L Pulse Oximetry 99 97 Fraction of Inspired Oxygen 12/04/21 04:42 12/04/21 04:42 12/04/21 04:45 Pulse Rate 73 Respiratory Rate 21 Blood Pressure 78/42 L 82/50 L Pulse Oximetry 99 Fraction of Inspired Oxygen 12/04/21 04:45 12/04/21 04:47 12/04/21 04:48 Pulse Rate 69 70 Respiratory Rate 30 H 28 H Blood Pressure 119/58 L Pulse Oximetry 100 100 Fraction of Inspired Oxygen MDM - SOB/Dyspnea Lab Data Result diagrams: 12/03/21 20:26 12/03/21 20:26 Labs: Lab Results 12/03/21 12/03/21 12/03/21 Range/Units 20:26 20:26 20:26 WBC 19.6 H (4.5-11.0) X10^3/uL RBC 4.32 (4.0-5.2) X10^6/uL Hgb 13.0 (12.0-16.0) g/dL Hct 40.6 (36-46) % MCV 94.1 (80-100) fL MCH 30.1 (26-34) PG MCHC 32.0 (30-36) % RDW 15.2 H (11.6-14.8) % Plt Count 262 (150-400) X10^3/uL Neut % (Auto) 46.6 L (50-75) % Lymph % (Auto) 43.0 H (25-40) % [place] % (Auto) 6.6 (3-14) % Eos % (Auto) 2.7 (2-4) % Baso % (Auto) 1.1 (0-2) % Neut # (Auto) 9100 H (4526-1764) /uL Lymph # (Auto) 8400 H (7495-5112) /uL [place] # (Auto) 1300 H (0-900) /uL Eos # (Auto) 500 H (0-450) /uL Baso # (Auto) 200 H (0-100) /uL PT 13.6 H (10.1-12.7) SECONDS INR 1.2 (0.9-1.3) D-Dimer (<500) ng/ml ABG pH (7.35-7.45) ABG pCO2 (35-45) mmHg ABG pO2 (80-100) mmHg ABG HCO3 (22-26) mmol/L ABG Total CO2 (21-31) mmol/L ABG O2 Saturation (95-100) % ABG Base Excess (-2-2) mmol/L FiO2 Sodium 139 (137-145) mmol/L Potassium 4.2 (3.4-5.1) mmol/L Chloride 103 (98-107) mmol/L Carbon Dioxide 25 (22-32) mmol/L BUN 21 H (7-17) mg/dL Creatinine 0.49 L (0.52-1.04) mg/dL Estimated GFR > 60 (>60) mL/min BUN/Creatinine Ratio 42.9 H (6-22) Glucose 238 H (80-110) mg/dL Lactate (0.7-2.1) mmol/L Calcium 8.9 (8.4-10.2) mg/dL Total Bilirubin 0.6 (0.2-1.3) mg/dL AST 33 (14-36) IU/L ALT 16 (<35) IU/L Alkaline Phosphatase 40 (38-126) U/L Total Creatine Kinase (30-135) U/L CK-MB (CK-2) CK-MB (CK-2) Rel Index Troponin I (0.01-0.034) ng/mL NT-Pro-B Natriuret Pep 3080 H (<450) pg/mL Total Protein 5.9 L (6.3-8.2) g/dL Albumin 3.6 (3.5-5.0) g/dL Globulin 2.3 (1.7-4.1) g/dL Albumin/Globulin Ratio 1.6 (1.0-2.8) Procalcitonin 0.18 (<0.5) ng/mL SARS-CoV-2 (PCR) (Negative) 12/03/21 12/03/21 12/03/21 Range/Units 20:26 20:26 20:26 WBC (4.5-11.0) X10^3/uL RBC (4.0-5.2) X10^6/uL Hgb (12.0-16.0) g/dL Hct (36-46) % MCV (80-100) fL MCH (26-34) PG MCHC (30-36) % RDW (11.6-14.8) % Plt Count (150-400) X10^3/uL Neut % (Auto) (50-75) % Lymph % (Auto) (25-40) % [place] % (Auto) (3-14) % Eos % (Auto) (2-4) % Baso % (Auto) (0-2) % Neut # (Auto) (4655-4732) /uL Lymph # (Auto) (6878-0683) /uL [place] # (Auto) (0-900) /uL Eos # (Auto) (0-450) /uL Baso # (Auto) (0-100) /uL PT (10.1-12.7) SECONDS INR (0.9-1.3) D-Dimer 881 H (<500) ng/ml ABG pH (7.35-7.45) ABG pCO2 (35-45) mmHg ABG pO2 (80-100) mmHg ABG HCO3 (22-26) mmol/L ABG Total CO2 (21-31) mmol/L ABG O2 Saturation (95-100) % ABG Base Excess (-2-2) mmol/L FiO2 Sodium (137-145) mmol/L Potassium (3.4-5.1) mmol/L Chloride (98-107) mmol/L Carbon Dioxide (22-32) mmol/L BUN (7-17) mg/dL Creatinine (0.52-1.04) mg/dL Estimated GFR (>60) mL/min BUN/Creatinine Ratio (6-22) Glucose (80-110) mg/dL Lactate 3.2 H (0.7-2.1) mmol/L Calcium (8.4-10.2) mg/dL Total Bilirubin (0.2-1.3) mg/dL AST (14-36) IU/L ALT (<35) IU/L Alkaline Phosphatase (38-126) U/L Total Creatine Kinase 57 (30-135) U/L CK-MB (CK-2) TNP CK-MB (CK-2) Rel Index TNP Troponin I < 0.012 (0.01-0.034) ng/mL NT-Pro-B Natriuret Pep (<450) pg/mL Total Protein (6.3-8.2) g/dL Albumin (3.5-5.0) g/dL Globulin (1.7-4.1) g/dL Albumin/Globulin Ratio (1.0-2.8) Procalcitonin (<0.5) ng/mL SARS-CoV-2 (PCR) (Negative) 12/03/21 12/03/21 12/03/21 Range/Units 20:40 21:14 22:45 WBC (4.5-11.0) X10^3/uL RBC (4.0-5.2) X10^6/uL Hgb (12.0-16.0) g/dL Hct (36-46) % MCV (80-100) fL MCH (26-34) PG MCHC (30-36) % RDW (11.6-14.8) % Plt Count (150-400) X10^3/uL Neut % (Auto) (50-75) % Lymph % (Auto) (25-40) % [place] % (Auto) (3-14) % Eos % (Auto) (2-4) % Baso % (Auto) (0-2) % Neut # (Auto) (5768-6742) /uL Lymph # (Auto) (4026-9291) /uL [place] # (Auto) (0-900) /uL Eos # (Auto) (0-450) /uL Baso # (Auto) (0-100) /uL PT (10.1-12.7) SECONDS INR (0.9-1.3) D-Dimer (<500) ng/ml ABG pH 7.34 L (7.35-7.45) ABG pCO2 49.4 H (35-45) mmHg ABG pO2 138 H (80-100) mmHg ABG HCO3 27 H (22-26) mmol/L ABG Total CO2 28 (21-31) mmol/L ABG O2 Saturation 99 (95-100) % ABG Base Excess 1.0 (-2-2) mmol/L FiO2 60 Sodium (137-145) mmol/L Potassium (3.4-5.1) mmol/L Chloride (98-107) mmol/L Carbon Dioxide (22-32) mmol/L BUN (7-17) mg/dL Creatinine (0.52-1.04) mg/dL Estimated GFR (>60) mL/min BUN/Creatinine Ratio (6-22) Glucose (80-110) mg/dL Lactate 3.1 H (0.7-2.1) mmol/L Calcium (8.4-10.2) mg/dL Total Bilirubin (0.2-1.3) mg/dL AST (14-36) IU/L ALT (<35) IU/L Alkaline Phosphatase (38-126) U/L Total Creatine Kinase (30-135) U/L CK-MB (CK-2) CK-MB (CK-2) Rel Index Troponin I (0.01-0.034) ng/mL NT-Pro-B Natriuret Pep (<450) pg/mL Total Protein (6.3-8.2) g/dL Albumin (3.5-5.0) g/dL Globulin (1.7-4.1) g/dL Albumin/Globulin Ratio (1.0-2.8) Procalcitonin (<0.5) ng/mL SARS-CoV-2 (PCR) Negative (Negative) Urine Dip Bedside Urine Glucose Negative Bedside Urine Bilirubin - Negative Bedside Urine Ketone - Negative Urine Specific [place] 1.030 Bedside Urine Occult Blood - Negative Bedside Urine pH 5.5 Bedside Urine Protein +/- 15 Bedside Urine Nitrite - Negative Bedside Urine Leukocytes - Negative Esterase Imaging Data Chest x-ray: Radiologist's Impression: [address] [id number] ReportSigned Patient: Dahlia Villalta GMR#: [id number]: 9Acct:[id number]/Sex: 73 / FDate of Service: 12/03/21Loc: EDAccession Number: [id number] Procedure: US abdomen limited Ordering Provider: Marvel Dalton D.O. PROCEDURE: US ABDOMEN LIMITED INDICATIONS: RIGHT INGUINAL HERNIA - UNABLE TO REDUCE ON PHYSICAL EXAM TECHNIQUE: Real-time focused scanning was performed of the abdomen, with image documentation. COMPARISON: [facility], CT, CT ABDOMEN PELVIS W CON, 11/17/2021, 8:42. FINDINGS: There is a non reducible right inguinal hernia containing bowel loops. There is adjacent subcutaneous edema. The hernia defect measures approximately 3.8 cm. IMPRESSION: 1. Non reducible bowel-containing right inguinal hernia. Dictated by: Guy Gutierrez M.D. on 12/04/2021 at 0:43 Approved by: Guy Gutierrez M.D. on 12/04/2021 at 0:45 MDM Narrative Medical decision making narrative: [id number] -patient continues to improve and has been downgraded from BiPAP to high-flow nasal cannula for about the past hour to and is doing significantly better. She is upright, has good color and is alert and speaking clearly, stating she feels much better. Furthermore we have been slowly coming down on her Levophed which had been at 8, in fact she is been off it now for the past 15-20 minutes and has a current map of [phone] -patient continues to feel much better and is much more alert with tremendous improvement from a respiratory standpoint, however her map has begun slipping is now down in the upper 50s. I have discussed the placement of a central line and she is amenable. Upon successful placement Levophed started again and she responds nicely with blood pressures back into the 110s Critical Care Time Critical Care Time Critical Care Time: Yes Total Critical Care Time: 45 Attestation: The high probability of a clinically significant, sudden or life threatening deterioration of the [CV] system(s) required my full and direct attention, intervention and personal management. The aggregate critical care time was [45] minutes. This time is in addition to time spent performing reported procedures but includes the following: [x] Data Review and interpretation [x] Patient assessment and monitoring of vital signs [x] Documentation [x] Medication orders and management Discharge Plan Departure Patient Disposition: Admitted As Inpatient Clinical Impression: Septic shock, Bilateral pneumonia, Acute hypoxemic respiratory failure, Acute CHF Admit Date/Time: 12/04/21 05:12 Admit Provider: Radha Negron
[2021-12-03 20:39] LABS: INR 1.2 (0.9-1.3); Prothrombin Time 13.6 SECONDS (10.1-12.7)
[2021-12-03 20:45] LABS: Creatine Kinase 57 U/L (30-135); Lactate (Lactic Acid) 3.2 mmol/L (0.7-2.1)
[2021-12-03 20:47] LABS: Alanine Aminotransferase 16 IU/L (<35); Albumin 3.6 g/dL (3.5-5.0); Albumin Globulin Ratio 1.6 (1.0-2.8); Alkaline Phosphatase 40 U/L (38-126); Aspartate Aminotransferase 33 IU/L (14-36); BUN Creatinine Ratio 42.9 (6-22); Bilirubin Total 0.6 mg/dL (0.2-1.3); Blood Urea Nitrogen 21 mg/dL (7-17); Calcium 8.9 mg/dL (8.4-10.2); Carbon Dioxide 25 mmol/L (22-32); Chloride 103 mmol/L (98-107); Estimated Glomerular Filt Rate > 60 mL/min (>60); Globulin 2.3 g/dL (1.7-4.1); Glucose 238 mg/dL (80-110); HEMOLYSIS 38 (0-50); Potassium 4.2 mmol/L (3.4-5.1); Sodium 139 mmol/L (137-145); Total Protein 5.9 g/dL (6.3-8.2)
[2021-12-03 20:56] LABS: NT-proBNP (BNP-Adult 18+) 3080 pg/mL (<450)
[2021-12-03 20:58] LABS: Troponin I < 0.012 ng/mL (0.01-0.034)
[2021-12-03 21:03] LABS: Procalcitonin 0.18 ng/mL (<0.5)
--- NOTE | 2021-12-03 21:07 | PC.NURSE ---
I made multiple attempts to contact pts family and emergecy contact without success
[2021-12-03 21:09] LABS: COVID19 -Nasal RAPID Negative (Negative)
[2021-12-03] MEDS: SODIUM CHLORIDE 0.9% 1,360.77 ML 453.59 ML IV (21:26)
[2021-12-03] MEDS: FUROSEMIDE 40 MG/4 ML VIAL IV (21:30)
[2021-12-03] MEDS: levoFLOXacin 750 MG/150 ML PIGGYBACK 100 MG IV (21:30)
[2021-12-03 21:44] LABS: D Dimer 881 ng/ml (<500)
[2021-12-03] MEDS: EPINEPHrine 1 MG/10 ML SYRINGE (22:05)
[2021-12-03 22:10] LABS: Fractionated Inspired Oxygen 60; HCO3 ABG 27 mmol/L (22-26); Oxygen Saturation ABG 99 % (95-100); PCO2 ABG 49.4 mmHg (35-45); PO2 ABG 138 mmHg (80-100); TCO2 ABG 28 mmol/L (21-31); pH ABG 7.34 (7.35-7.45)
[2021-12-03] MEDS: NOREPINEPHRINE BITARTRATE/D5W 4 MG/250 ML PLAST..BAG 30 MG IV (22:10)
[2021-12-03 22:26] LABS: Reflexed Lactate in 2 Hours Y
[2021-12-03 23:02] LABS: Lactate 2HR (Lactic Acid Rflx) 3.1 mmol/L (0.7-2.1)
[2021-12-04] VITALS (178 sets, daily range): BP systolic 77–160; BP diastolic 41–99; PULSE 65–92; RESP 13–48; TEMP 36.3–36.8; O2SAT 86–100; BMI 18.3
[2021-12-04] MEDS: SODIUM CHLORIDE 0.9% 1,000 ML 150 ML IV (01:52)
--- NOTE | 2021-12-04 04:32 | DI.RAD.S_ITS ---
PROCEDURE: XR CHEST 1V INDICATIONS: line placement TECHNIQUE: One view of the chest was acquired. COMPARISON: [facility], CR, XR CHEST 1V, 12/03/2021, 20:34. FINDINGS: Surgical changes and devices: Right-sided central venous catheter tip is in SVC.. Lungs and pleura: Left basilar airspace opacity is seen suggestive of small infiltrate/atelectasis. Mild pulmonary vascular congestion is also seen. No pleural effusions or pneumothorax. Mediastinum: Mediastinal contours appear normal. Heart size is enlarged. Bones and chest wall: No suspicious bony lesions. Overlying soft tissues appear unremarkable. IMPRESSION: Cardiomegaly and mild congestion with suggestion of left basilar infiltrate/atelectasis. Overall bilateral lung aeration has significantly improved compared to prior study. No significant pleural effusion. No gross pneumothorax. Dictated by: Jeffery Kirby M.D. on 12/04/2021 at 8:08 Approved by: Jeffery Kirby M.D. on 12/04/2021 at 8:12
[2021-12-04] MEDS: PIPERACILLIN/TAZO 4.5 GM in SODIUM CHLORIDE 0.9% 100 ML IV (06:47)
--- NOTE | 2021-12-04 07:29 | PC.NURSE ---
Pt came to ICU at 0600. On heat high flow 30% FiO2 45L. On Levophed at 7 mcg/min. Received zosyn. Pt is oriented and follow commands. Training Development Director consulted.
--- NOTE | 2021-12-04 08:08 | P.TELICUCN_ITS ---
History of Present Illness Consult details IF CAMERA ACTIVATED, patient seen via real-time interactive audiovisual communication: Camera activated Chief complaint: SOB Consent obtained for tele-lead sales consultant care: Yes Patient Location: ICU Provider location (State): Other participants/roles: ED MD, SHADE CUTTER Narrative: 76-year-old with history of CHF, AFib (s/p DCCV, on Apixaban & amiodarone) , LBBB , H/o of MS, RA on ( prednisone, methotrexate and hydroxychloroquine) osteoporosis, severe kyphoscoliosis , [place], presented with shortness of breath, found to have acute hypoxemic respiratory failure, CXR showing diffuse patchy bilateral infiltrate, DD include pul edema and multifocal PNA, pt started on Levo, received a bolus of NS and IV Lasix 40 mg, already had 1.4 L of urine, received Vanc, Zosyn and Levaquin. Last Echo showed diastolic HF grade II , EF 50% with mod to sever , mild to mod MS. Assessment: Acute hypoxemic resp failure likely multifactorial ( PNA and CHF exacerbation) Multifocal PNA Acute on chronic HFpEF Septic shock Lactic acidosis 2/2 sepsis and hypoxia H/o of AFib (s/p DCCV, on Apixaban & amiodarone) H/o of LBBB H/o of MS H/o of RA H/o of severe kyphoscoliosis Rec: Comfortable on HFNC, currently at 30 L& 45%, may switch back to BiPAP as needed Hold IV fluid Hold off diuresis for now as pt responded well to first dose, consider extra doses as needed / gentle diuresis for goal neg 0.5- 1L as long as the levo requirement is stable ( levo<10 mcg/min) IV Zosyn and Vanc, blood and resp cx, mrsa screen IV hydrocortisone stress dose Trend lacate 2? D echo , cont amiodarone and apixaban, trend LFT daily CXR in Am NPO except meds for today/ if resp status improve may advance to clear liquid/ watch for aspiration On BZD at night, watch for withdrawal, consider a smaller dose if pt regularly taking it Code status DNR/DNI per ED MD and IMPREGNATOR AND DRIER HELPER [facility] Medical History Hyperlipidemia Rheumatoid arthritis Social History household members: none Smoking Status: Never smoker alcohol intake: never Current Medications Current Medications Medications: Home Medications ascorbic acid (vitamin C) 500 mg tablet 1,000 mg PO DAILY ##0 02/10/16 [History Confirmed 07/24/21] folic acid 1 mg tablet 1 mg PO DAILY ##0 02/10/16 [History Confirmed 07/24/21] lorazepam 0.5 mg tablet (Ativan) 0.5 mg PO HS #90 tabs 02/10/16 [History Confirmed 07/24/21] multivitamin (Multiple Vitamins tablet) 1 tab PO DAILY ##0 02/10/16 [History Confirmed 07/24/21] mupirocin 2 % topical ointment 1 applictn topical BID #30 grams 04/06/18 [Rx Confirmed 07/24/21] incontinence supplies #150 ea 05/05/18 [Rx Confirmed 12/03/21] wheelchair #1 ea 07/24/18 [Rx Confirmed 12/03/21] methotrexate sodium 2.5 mg tablet 12.5 mg PO .COMPLEX #90 tabs 12/10/20 [Rx Confirmed 07/24/21] atorvastatin 40 mg tablet See Rx Instructions .Route .COMPLEX #90 tabs 12/15/20 [Rx Confirmed 07/24/21] david lift #1 ea 04/14/21 [Rx Confirmed 12/03/21] amiodarone 200 mg tablet 200 mg PO DAILY #30 tabs 07/19/21 [Rx Confirmed 07/24/21] purewick female catheter #1 ea 08/03/21 [Rx Confirmed 12/03/21] purewick replacement canisters #1 ea 08/03/21 [Rx Confirmed 12/03/21] purewick suction canister #1 ea 08/03/21 [Rx Confirmed 12/03/21] apixaban 5 mg tablet (Eliquis) 5 mg PO BID #60 tabs 08/07/21 [Rx] potassium chloride 10 mEq capsule,extended release See Rx Instructions .Route .COMPLEX #60 caps 08/11/21 [Rx] hydroxychloroquine 200 mg tablet (Plaquenil) 200 mg PO BID #180 tabs 10/16/21 [Rx] prednisone 20 mg tablet 20 mg PO DAILY #12 tabs 10/24/21 [Rx] magnesium citrate 150 ml PO DAILY PRN constipation #296 mL 11/17/21 [Rx] polyethylene glycol 3350 17 gram/dose oral powder (Miralax) 17 g PO DAILY #119 grams 11/17/21 [Rx] bisacodyl 5 mg tablet,delayed release (Alophen (bisacodyl)) 5 mg PO BEDTIME PRN as needed for constipation #30 tabs 11/25/21 [Rx] furosemide 20 mg tablet 20 mg PO DAILY #90 tabs 11/25/21 [Rx] Visit Medications (administered) Generic Name Dose Route Start Last Admin Trade Name Freq PRN Reason Stop Dose Admin NOREPINEPHRINE BITARTRATE/D5W 4 mg in 250 mls @ 30 mls/hr 12/03/21 22:06 12/04/21 05:55 Levophed IV 1.07 mcg/min TITRATE MÓNICA 4 mls/hr Titration Protocol 8 MCG/MIN Sodium Chloride 1,000 mls @ 150 mls/hr 12/04/21 01:00 12/04/21 05:55 Normal Saline 0.9% IV 150 mls/hr CONT MÓNICA Infusion Exam Vital Signs (past 8 hours): - 12/04/21 00:13 12/04/21 00:13 12/04/21 00:17 Pulse Rate 77 80 Respiratory Rate 22 33 H Blood Pressure 106/41 L Pulse Oximetry 97 96 Oxygen Delivery Method 12/04/21 00:17 12/04/21 00:20 12/04/21 00:20 Pulse Rate 82 Respiratory Rate 31 H Blood Pressure 112/59 L 115/55 L Pulse Oximetry 94 Oxygen Delivery Method 12/04/21 00:25 12/04/21 00:25 12/04/21 00:29 Pulse Rate 80 79 Respiratory Rate 30 H 27 H Blood Pressure 112/80 Pulse Oximetry 97 98 Oxygen Delivery Method 12/04/21 00:29 12/04/21 00:30 12/04/21 00:32 Pulse Rate 79 Respiratory Rate 22 Blood Pressure 107/59 L 94/55 L Pulse Oximetry 98 Oxygen Delivery Method 12/04/21 00:32 12/04/21 00:36 12/04/21 00:36 Pulse Rate 79 79 Respiratory Rate 25 H 25 H Blood Pressure 94/56 L Pulse Oximetry 97 97 Oxygen Delivery Method 12/04/21 00:15 12/04/21 00:40 12/04/21 00:40 Pulse Rate 79 77 Respiratory Rate 25 H 35 H Blood Pressure 94/56 L 93/58 L Pulse Oximetry 97 96 Oxygen Delivery Method 12/04/21 00:44 12/04/21 00:44 12/04/21 00:48 Pulse Rate 79 Respiratory Rate 26 H Blood Pressure 92/58 L 95/52 L Pulse Oximetry 98 Oxygen Delivery Method 12/04/21 00:48 12/04/21 00:52 12/04/21 00:52 Pulse Rate 79 76 Respiratory Rate 38 H 25 H Blood Pressure 97/57 L Pulse Oximetry 96 97 Oxygen Delivery Method 12/04/21 00:56 12/04/21 00:56 12/04/21 01:00 Pulse Rate 75 Respiratory Rate 28 H Blood Pressure 106/56 L 99/57 L Pulse Oximetry 97 Oxygen Delivery Method 12/04/21 01:00 12/04/21 01:04 12/04/21 01:04 Pulse Rate 75 75 Respiratory Rate 25 H 23 Blood Pressure 97/56 L Pulse Oximetry 97 97 Oxygen Delivery Method 12/04/21 01:08 12/04/21 01:08 12/04/21 01:12 Pulse Rate 75 Respiratory Rate 16 Blood Pressure 101/57 L 110/56 L Pulse Oximetry 97 Oxygen Delivery Method 12/04/21 01:12 12/04/21 01:16 12/04/21 01:16 Pulse Rate 75 76 Respiratory Rate 16 25 H Blood Pressure 99/52 L Pulse Oximetry 97 97 Oxygen Delivery Method 12/04/21 01:20 12/04/21 01:20 12/04/21 01:24 Pulse Rate 75 Respiratory Rate 18 Blood Pressure 96/53 L 101/60 Pulse Oximetry 97 Oxygen Delivery Method 12/04/21 01:24 12/04/21 01:28 12/04/21 01:28 Pulse Rate 77 79 Respiratory Rate 35 H 30 H Blood Pressure 90/59 L Pulse Oximetry 98 97 Oxygen Delivery Method 12/04/21 01:30 12/04/21 01:32 12/04/21 01:32 Pulse Rate 79 79 Respiratory Rate 34 H 29 H Blood Pressure 93/57 L Pulse Oximetry 98 97 Oxygen Delivery Method 12/04/21 01:36 12/04/21 01:36 12/04/21 01:41 Pulse Rate 79 79 Respiratory Rate 30 H 30 H Blood Pressure 101/59 L Pulse Oximetry 98 98 Oxygen Delivery Method 12/04/21 01:41 12/04/21 01:44 12/04/21 01:44 Pulse Rate 77 Respiratory Rate 31 H Blood Pressure 113/62 85/49 L Pulse Oximetry 98 Oxygen Delivery Method 12/04/21 01:48 12/04/21 01:48 12/04/21 01:53 Pulse Rate 76 Respiratory Rate 28 H Blood Pressure 83/50 L 106/62 Pulse Oximetry 98 Oxygen Delivery Method 12/04/21 01:53 12/04/21 01:56 12/04/21 01:56 Pulse Rate 77 76 Respiratory Rate 40 H 34 H Blood Pressure 97/56 L Pulse Oximetry 98 98 Oxygen Delivery Method 12/04/21 02:00 12/04/21 02:00 12/04/21 02:04 Pulse Rate 74 Respiratory Rate 24 Blood Pressure 93/57 L 99/61 Pulse Oximetry 97 Oxygen Delivery Method 12/04/21 02:04 12/04/21 02:08 12/04/21 02:08 Pulse Rate 74 75 Respiratory Rate 21 15 Blood Pressure 102/61 Pulse Oximetry 98 97 Oxygen Delivery Method 12/04/21 02:12 12/04/21 02:12 12/04/21 02:16 Pulse Rate 75 76 Respiratory Rate 15 22 Blood Pressure 104/64 Pulse Oximetry 97 97 Oxygen Delivery Method 12/04/21 02:16 12/04/21 02:20 12/04/21 02:20 Pulse Rate 75 Respiratory Rate 25 H Blood Pressure 109/55 L 110/55 L Pulse Oximetry 97 Oxygen Delivery Method 12/04/21 02:24 12/04/21 02:24 12/04/21 02:28 Pulse Rate 76 75 Respiratory Rate 23 26 H Blood Pressure 109/58 L Pulse Oximetry 97 98 Oxygen Delivery Method 12/04/21 02:28 12/04/21 02:30 12/04/21 02:40 Pulse Rate 74 Respiratory Rate 39 H Blood Pressure 111/58 L 107/57 L Pulse Oximetry 98 Oxygen Delivery Method 12/04/21 02:40 12/04/21 02:44 12/04/21 02:44 Pulse Rate 80 73 Respiratory Rate 31 H 19 Blood Pressure 107/51 L Pulse Oximetry 98 99 Oxygen Delivery Method 12/04/21 02:48 12/04/21 02:48 12/04/21 02:52 Pulse Rate 72 Respiratory Rate 22 Blood Pressure 101/51 L 92/59 L Pulse Oximetry 98 Oxygen Delivery Method 12/04/21 02:52 12/04/21 02:56 12/04/21 02:56 Pulse Rate 70 71 Respiratory Rate 27 H 19 Blood Pressure 94/55 L Pulse Oximetry 98 98 Oxygen Delivery Method 12/04/21 03:00 12/04/21 03:00 12/04/21 03:04 Pulse Rate 71 Respiratory Rate 20 Blood Pressure 94/51 L 95/52 L Pulse Oximetry 98 Oxygen Delivery Method 12/04/21 03:04 12/04/21 03:08 12/04/21 03:08 Pulse Rate 72 71 Respiratory Rate 22 19 Blood Pressure 94/54 L Pulse Oximetry 98 99 Oxygen Delivery Method 12/04/21 03:12 12/04/21 03:12 12/04/21 03:17 Pulse Rate 71 Respiratory Rate 18 Blood Pressure 91/55 L 92/52 L Pulse Oximetry 98 Oxygen Delivery Method 12/04/21 03:17 12/04/21 03:20 12/04/21 03:20 Pulse Rate 71 71 Respiratory Rate 26 H 26 H Blood Pressure 94/54 L Pulse Oximetry 99 98 Oxygen Delivery Method 12/04/21 03:29 12/04/21 03:29 12/04/21 03:30 Pulse Rate 74 74 Respiratory Rate 27 H 23 Blood Pressure 90/54 L Pulse Oximetry 98 99 Oxygen Delivery Method 12/04/21 03:32 12/04/21 03:32 12/04/21 03:36 Pulse Rate 74 70 Respiratory Rate 23 18 Blood Pressure 85/53 L Pulse Oximetry 98 97 Oxygen Delivery Method 12/04/21 03:36 12/04/21 03:40 12/04/21 03:40 Pulse Rate 68 Respiratory Rate 17 Blood Pressure 85/50 L 84/53 L Pulse Oximetry 97 Oxygen Delivery Method 12/04/21 03:44 12/04/21 03:44 12/04/21 03:48 Pulse Rate 69 Respiratory Rate 19 Blood Pressure 83/52 L 88/54 L Pulse Oximetry 97 Oxygen Delivery Method 12/04/21 03:48 12/04/21 03:52 12/04/21 03:52 Pulse Rate 68 68 Respiratory Rate 16 15 Blood Pressure 81/53 L Pulse Oximetry 98 97 Oxygen Delivery Method 12/04/21 03:56 12/04/21 03:56 12/04/21 04:00 Pulse Rate 68 74 Respiratory Rate 17 26 H Blood Pressure 84/51 L Pulse Oximetry 97 98 Oxygen Delivery Method 12/04/21 04:01 12/04/21 04:01 12/04/21 04:08 Pulse Rate 75 Respiratory Rate 28 H Blood Pressure 81/56 L 105/65 Pulse Oximetry 98 Oxygen Delivery Method 12/04/21 04:08 12/04/21 04:12 12/04/21 04:12 Pulse Rate 72 73 Respiratory Rate 23 21 Blood Pressure 105/64 Pulse Oximetry 97 97 Oxygen Delivery Method 12/04/21 04:16 12/04/21 04:16 12/04/21 04:20 Pulse Rate 73 Respiratory Rate 22 Blood Pressure 112/65 112/64 Pulse Oximetry 96 Oxygen Delivery Method 12/04/21 04:20 12/04/21 04:24 12/04/21 04:24 Pulse Rate 71 74 Respiratory Rate 17 16 Blood Pressure 119/65 Pulse Oximetry 96 96 Oxygen Delivery Method 12/04/21 04:28 12/04/21 04:28 12/04/21 04:30 Pulse Rate 73 72 Respiratory Rate 21 18 Blood Pressure 106/56 L Pulse Oximetry 97 98 Oxygen Delivery Method 12/04/21 04:32 12/04/21 04:32 12/04/21 04:36 Pulse Rate 72 Respiratory Rate 17 Blood Pressure 94/51 L 108/56 L Pulse Oximetry 99 Oxygen Delivery Method 12/04/21 04:36 12/04/21 04:42 12/04/21 04:42 Pulse Rate 69 73 Respiratory Rate 29 H 21 Blood Pressure 78/42 L Pulse Oximetry 97 99 Oxygen Delivery Method 12/04/21 04:45 12/04/21 04:45 12/04/21 04:47 Pulse Rate 69 70 Respiratory Rate 30 H 28 H Blood Pressure 82/50 L Pulse Oximetry 100 100 Oxygen Delivery Method 12/04/21 04:48 12/04/21 04:48 12/04/21 04:52 Pulse Rate 70 71 Respiratory Rate 34 H 17 Blood Pressure 119/58 L Pulse Oximetry 99 99 Oxygen Delivery Method 12/04/21 04:52 12/04/21 04:56 12/04/21 04:56 Pulse Rate 71 Respiratory Rate 17 Blood Pressure 149/81 H 152/62 H Pulse Oximetry 100 Oxygen Delivery Method 12/04/21 05:00 12/04/21 05:00 12/04/21 05:04 Pulse Rate 74 Respiratory Rate 19 Blood Pressure 149/66 H 141/65 H Pulse Oximetry 100 Oxygen Delivery Method 12/04/21 05:04 12/04/21 05:08 12/04/21 05:08 Pulse Rate 79 79 Respiratory Rate 14 15 Blood Pressure 134/62 Pulse Oximetry 100 99 Oxygen Delivery Method 12/04/21 05:12 12/04/21 05:12 12/04/21 05:16 Pulse Rate 77 Respiratory Rate 18 Blood Pressure 150/84 H 160/82 H Pulse Oximetry 99 Oxygen Delivery Method 12/04/21 05:16 12/04/21 05:20 12/04/21 05:20 Pulse Rate 76 73 Respiratory Rate 20 21 Blood Pressure 129/62 Pulse Oximetry 98 98 Oxygen Delivery Method 12/04/21 05:24 12/04/21 05:24 12/04/21 05:28 Pulse Rate 73 Respiratory Rate 22 Blood Pressure 125/61 115/62 Pulse Oximetry 98 Oxygen Delivery Method 12/04/21 05:28 12/04/21 05:30 12/04/21 05:33 Pulse Rate 77 74 Respiratory Rate 26 H 35 H Blood Pressure 99/54 L Pulse Oximetry 96 100 Oxygen Delivery Method 12/04/21 05:33 12/04/21 05:40 12/04/21 05:44 Pulse Rate 77 Respiratory Rate 33 H Blood Pressure 103/56 L 97/72 Pulse Oximetry 99 Oxygen Delivery Method 12/04/21 05:50 12/04/21 05:50 12/04/21 05:30 Pulse Rate 75 75 Respiratory Rate 24 24 Blood Pressure 130/62 Pulse Oximetry 99 Oxygen Delivery Method 12/04/21 00:15 12/04/21 02:00 12/04/21 04:00 Pulse Rate 75 81 79 Respiratory Rate 24 20 25 H Blood Pressure 130/62 120/60 Pulse Oximetry 99 99 98 Oxygen Delivery Method 12/04/21 05:45 12/04/21 06:57 12/04/21 07:58 Pulse Rate 78 Respiratory Rate 40 H Blood Pressure 130/62 Pulse Oximetry 99 Oxygen Delivery Method Heated High Flow Heated High Flow Fraction of Inspired Oxygen 30 Oxygen Delivery Method Heated High Flow Oxygen Flow Rate 15 Objective Labs Result Diagrams: 12/03/21 20:26 12/03/21 20:26 Labs: Laboratory Results - last 24 hr 12/03/21 12/03/21 12/03/21 20:26 20:26 20:26 WBC 19.6 H RBC 4.32 Hgb 13.0 Hct 40.6 MCV 94.1 MCH 30.1 MCHC 32.0 RDW 15.2 H Plt Count 262 Neut % (Auto) 46.6 L Lymph % (Auto) 43.0 H Wayne % (Auto) 6.6 Eos % (Auto) 2.7 Baso % (Auto) 1.1 Neut # (Auto) 9100 H Lymph # (Auto) 8400 H Wayne # (Auto) 1300 H Eos # (Auto) 500 H Baso # (Auto) 200 H PT 13.6 H INR 1.2 D-Dimer ABG pH ABG pCO2 ABG pO2 ABG HCO3 ABG Total CO2 ABG O2 Saturation ABG Base Excess FiO2 Sodium 139 Potassium 4.2 Chloride 103 Carbon Dioxide 25 BUN 21 H Creatinine 0.49 L Estimated GFR > 60 BUN/Creatinine Ratio 42.9 H Glucose 238 H Lactate Calcium 8.9 Total Bilirubin 0.6 AST 33 ALT 16 Alkaline Phosphatase 40 Total Creatine Kinase CK-MB (CK-2) CK-MB (CK-2) Rel Index Troponin I NT-Pro-B Natriuret Pep 3080 H Total Protein 5.9 L Albumin 3.6 Globulin 2.3 Albumin/Globulin Ratio 1.6 Procalcitonin 0.18 Nasal Screen MRSA (PCR) SARS-CoV-2 (PCR) 12/03/21 12/03/21 12/03/21 20:26 20:26 20:26 WBC RBC Hgb Hct MCV MCH MCHC RDW Plt Count Neut % (Auto) Lymph % (Auto) Wayne % (Auto) Eos % (Auto) Baso % (Auto) Neut # (Auto) Lymph # (Auto) Wayne # (Auto) Eos # (Auto) Baso # (Auto) PT INR D-Dimer 881 H ABG pH ABG pCO2 ABG pO2 ABG HCO3 ABG Total CO2 ABG O2 Saturation ABG Base Excess FiO2 Sodium Potassium Chloride Carbon Dioxide BUN Creatinine Estimated GFR BUN/Creatinine Ratio Glucose Lactate 3.2 H Calcium Total Bilirubin AST ALT Alkaline Phosphatase Total Creatine Kinase 57 CK-MB (CK-2) TNP CK-MB (CK-2) Rel Index TNP Troponin I < 0.012 NT-Pro-B Natriuret Pep Total Protein Albumin Globulin Albumin/Globulin Ratio Procalcitonin Nasal Screen MRSA (PCR) SARS-CoV-2 (PCR) 12/03/21 12/03/21 12/03/21 20:40 21:14 22:45 WBC RBC Hgb Hct MCV MCH MCHC RDW Plt Count Neut % (Auto) Lymph % (Auto) Wayne % (Auto) Eos % (Auto) Baso % (Auto) Neut # (Auto) Lymph # (Auto) Wayne # (Auto) Eos # (Auto) Baso # (Auto) PT INR D-Dimer ABG pH 7.34 L ABG pCO2 49.4 H ABG pO2 138 H ABG HCO3 27 H ABG Total CO2 28 ABG O2 Saturation 99 ABG Base Excess 1.0 FiO2 60 Sodium Potassium Chloride Carbon Dioxide BUN Creatinine Estimated GFR BUN/Creatinine Ratio Glucose Lactate 3.1 H Calcium Total Bilirubin AST ALT Alkaline Phosphatase Total Creatine Kinase CK-MB (CK-2) CK-MB (CK-2) Rel Index Troponin I NT-Pro-B Natriuret Pep Total Protein Albumin Globulin Albumin/Globulin Ratio Procalcitonin Nasal Screen MRSA (PCR) SARS-CoV-2 (PCR) Negative 12/04/21 06:00 WBC RBC Hgb Hct MCV MCH MCHC RDW Plt Count Neut % (Auto) Lymph % (Auto) Wayne % (Auto) Eos % (Auto) Baso % (Auto) Neut # (Auto) Lymph # (Auto) Wayne # (Auto) Eos # (Auto) Baso # (Auto) PT INR D-Dimer ABG pH ABG pCO2 ABG pO2 ABG HCO3 ABG Total CO2 ABG O2 Saturation ABG Base Excess FiO2 Sodium Potassium Chloride Carbon Dioxide BUN Creatinine Estimated GFR BUN/Creatinine Ratio Glucose Lactate Calcium Total Bilirubin AST ALT Alkaline Phosphatase Total Creatine Kinase CK-MB (CK-2) CK-MB (CK-2) Rel Index Troponin I NT-Pro-B Natriuret Pep Total Protein Albumin Globulin Albumin/Globulin Ratio Procalcitonin Nasal Screen MRSA (PCR) Negative for mrsa SARS-CoV-2 (PCR) Assessment & Plan Time Spent With Patient Critical Care time: I spent a total of [60] minutes of critical care time on this patient's care today; this time is exclusive of procedural time.
--- NOTE | 2021-12-04 08:30 | PM.HP.1 ---
History of Present Illness History of Present Illness Chief complaint: SOB Narrative: Pt is a 76yo woman with RA, MS, atrial fibrillation, EF preserved CHF, osteoporosis, severe kyphoscoliosis, who is wheelchair bound who presented with acute SOB. The pt this morning does not recall feeling SOB yesterday. She only remembers feeling progressively warmer throughout the day, until she felt so hot it was like a burning sensation in her chest. She attributed this to the warmer weather outside. As per review of the ED documentation, her home health nurse noticed an acute worsening of her respiratory status with increased work of breathing. She was then brought to the ED for further evaluation. In the ED, the pt was found to be hypoxic to the 80s. She was started on BiPAP and then transitioned to high flow NC. CXR was consistent with pulmonary edema vs pneumonia. Lab work revealed elevated WBC count and lactate. The pt was initiated on Levophed due to persistent hypotension. This morning, the pt reports that she is actually feeling quite well. She denies any SOB, chest pain, fevers, abdominal pain. She is comfortable in bed. She is pleasantly conversant. Patient History Medical History Hyperlipidemia Rheumatoid arthritis Family & Social History Social History: household members none Safety & Behavioral: Feels Safe in Current Yes Environment Been Physically Hurt or No Threatened By a Person Tobacco & Substance use: Smoking Status Never smoker alcohol intake never alcohol intake frequency holiday/special occasion Substance Use Type does not use Meds Home Medications and Allergies Home Medications Medication Instructions Recorded Confirmed Type ascorbic acid (vitamin C) 500 mg 1,000 mg PO DAILY ##0 02/10/16 07/24/21 History tablet folic acid 1 mg tablet 1 mg PO DAILY ##0 02/10/16 07/24/21 History lorazepam 0.5 mg tablet (Ativan) 0.5 mg PO HS #90 tabs 02/10/16 07/24/21 History multivitamin (Multiple Vitamins 1 tab PO DAILY ##0 02/10/16 07/24/21 History tablet) mupirocin 2 % topical ointment 1 applictn topical BID #30 grams 04/06/18 07/24/21 Rx incontinence supplies #150 ea 05/05/18 12/03/21 Rx wheelchair #1 ea 07/24/18 12/03/21 Rx methotrexate sodium 2.5 mg tablet 12.5 mg PO .COMPLEX #90 tabs 12/10/20 07/24/21 Rx atorvastatin 40 mg tablet See Rx Instructions .Route 12/15/20 07/24/21 Rx .COMPLEX #90 tabs david lift #1 ea 04/14/21 12/03/21 Rx amiodarone 200 mg tablet 200 mg PO DAILY #30 tabs 07/19/21 07/24/21 Rx purewick female catheter #1 ea 08/03/21 12/03/21 Rx purewick replacement canisters #1 ea 08/03/21 12/03/21 Rx purewick suction canister #1 ea 08/03/21 12/03/21 Rx apixaban 5 mg tablet (Eliquis) 5 mg PO BID #60 tabs 08/07/21 Rx potassium chloride 10 mEq See Rx Instructions .Route 08/11/21 Rx capsule,extended release .COMPLEX #60 caps hydroxychloroquine 200 mg tablet 200 mg PO BID #180 tabs 10/16/21 Rx (Plaquenil) prednisone 20 mg tablet 20 mg PO DAILY #12 tabs 10/24/21 Rx magnesium citrate 150 ml PO DAILY PRN constipation 11/17/21 Rx #296 mL polyethylene glycol 3350 17 17 g PO DAILY #119 grams 11/17/21 Rx gram/dose oral powder (Miralax) bisacodyl 5 mg tablet,delayed 5 mg PO BEDTIME PRN as needed for 11/25/21 Rx release (Alophen (bisacodyl)) constipation #30 tabs furosemide 20 mg tablet 20 mg PO DAILY #90 tabs 11/25/21 Rx Allergies Allergy/AdvReac Type Severity Reaction Status Date / Time NSAIDS (Non-Steroidal Allergy Mild Verified 12/03/21 20:36 Anti-Inflamma [NSAIDS (NON-STEROIDAL ANTI-INFLAMMA] Exam Vital Signs (past 8 hours): - 12/04/21 00:32 12/04/21 00:32 12/04/21 00:36 Pulse Rate 79 Respiratory Rate 25 H Blood Pressure 94/55 L 94/56 L Pulse Oximetry 97 Oxygen Delivery Method 12/04/21 00:36 12/04/21 00:40 12/04/21 00:40 Pulse Rate 79 77 Respiratory Rate 25 H 35 H Blood Pressure 93/58 L Pulse Oximetry 97 96 Oxygen Delivery Method 12/04/21 00:44 12/04/21 00:44 12/04/21 00:48 Pulse Rate 79 Respiratory Rate 26 H Blood Pressure 92/58 L 95/52 L Pulse Oximetry 98 Oxygen Delivery Method 12/04/21 00:48 12/04/21 00:52 12/04/21 00:52 Pulse Rate 79 76 Respiratory Rate 38 H 25 H Blood Pressure 97/57 L Pulse Oximetry 96 97 Oxygen Delivery Method 12/04/21 00:56 12/04/21 00:56 12/04/21 01:00 Pulse Rate 75 Respiratory Rate 28 H Blood Pressure 106/56 L 99/57 L Pulse Oximetry 97 Oxygen Delivery Method 12/04/21 01:00 12/04/21 01:04 12/04/21 01:04 Pulse Rate 75 75 Respiratory Rate 25 H 23 Blood Pressure 97/56 L Pulse Oximetry 97 97 Oxygen Delivery Method 12/04/21 01:08 12/04/21 01:08 12/04/21 01:12 Pulse Rate 75 Respiratory Rate 16 Blood Pressure 101/57 L 110/56 L Pulse Oximetry 97 Oxygen Delivery Method 12/04/21 01:12 12/04/21 01:16 12/04/21 01:16 Pulse Rate 75 76 Respiratory Rate 16 25 H Blood Pressure 99/52 L Pulse Oximetry 97 97 Oxygen Delivery Method 12/04/21 01:20 12/04/21 01:20 12/04/21 01:24 Pulse Rate 75 Respiratory Rate 18 Blood Pressure 96/53 L 101/60 Pulse Oximetry 97 Oxygen Delivery Method 12/04/21 01:24 12/04/21 01:28 12/04/21 01:28 Pulse Rate 77 79 Respiratory Rate 35 H 30 H Blood Pressure 90/59 L Pulse Oximetry 98 97 Oxygen Delivery Method 12/04/21 01:30 12/04/21 01:32 12/04/21 01:32 Pulse Rate 79 79 Respiratory Rate 34 H 29 H Blood Pressure 93/57 L Pulse Oximetry 98 97 Oxygen Delivery Method 12/04/21 01:36 12/04/21 01:36 12/04/21 01:41 Pulse Rate 79 79 Respiratory Rate 30 H 30 H Blood Pressure 101/59 L Pulse Oximetry 98 98 Oxygen Delivery Method 12/04/21 01:41 12/04/21 01:44 12/04/21 01:44 Pulse Rate 77 Respiratory Rate 31 H Blood Pressure 113/62 85/49 L Pulse Oximetry 98 Oxygen Delivery Method 12/04/21 01:48 12/04/21 01:48 12/04/21 01:53 Pulse Rate 76 Respiratory Rate 28 H Blood Pressure 83/50 L 106/62 Pulse Oximetry 98 Oxygen Delivery Method 12/04/21 01:53 12/04/21 01:56 12/04/21 01:56 Pulse Rate 77 76 Respiratory Rate 40 H 34 H Blood Pressure 97/56 L Pulse Oximetry 98 98 Oxygen Delivery Method 12/04/21 02:00 12/04/21 02:00 12/04/21 02:04 Pulse Rate 74 Respiratory Rate 24 Blood Pressure 93/57 L 99/61 Pulse Oximetry 97 Oxygen Delivery Method 12/04/21 02:04 12/04/21 02:08 12/04/21 02:08 Pulse Rate 74 75 Respiratory Rate 21 15 Blood Pressure 102/61 Pulse Oximetry 98 97 Oxygen Delivery Method 12/04/21 02:12 12/04/21 02:12 12/04/21 02:16 Pulse Rate 75 76 Respiratory Rate 15 22 Blood Pressure 104/64 Pulse Oximetry 97 97 Oxygen Delivery Method 12/04/21 02:16 12/04/21 02:20 12/04/21 02:20 Pulse Rate 75 Respiratory Rate 25 H Blood Pressure 109/55 L 110/55 L Pulse Oximetry 97 Oxygen Delivery Method 12/04/21 02:24 12/04/21 02:24 12/04/21 02:28 Pulse Rate 76 75 Respiratory Rate 23 26 H Blood Pressure 109/58 L Pulse Oximetry 97 98 Oxygen Delivery Method 12/04/21 02:28 12/04/21 02:30 12/04/21 02:40 Pulse Rate 74 Respiratory Rate 39 H Blood Pressure 111/58 L 107/57 L Pulse Oximetry 98 Oxygen Delivery Method 12/04/21 02:40 12/04/21 02:44 12/04/21 02:44 Pulse Rate 80 73 Respiratory Rate 31 H 19 Blood Pressure 107/51 L Pulse Oximetry 98 99 Oxygen Delivery Method 12/04/21 02:48 12/04/21 02:48 12/04/21 02:52 Pulse Rate 72 Respiratory Rate 22 Blood Pressure 101/51 L 92/59 L Pulse Oximetry 98 Oxygen Delivery Method 12/04/21 02:52 12/04/21 02:56 12/04/21 02:56 Pulse Rate 70 71 Respiratory Rate 27 H 19 Blood Pressure 94/55 L Pulse Oximetry 98 98 Oxygen Delivery Method 12/04/21 03:00 12/04/21 03:00 12/04/21 03:04 Pulse Rate 71 Respiratory Rate 20 Blood Pressure 94/51 L 95/52 L Pulse Oximetry 98 Oxygen Delivery Method 12/04/21 03:04 12/04/21 03:08 12/04/21 03:08 Pulse Rate 72 71 Respiratory Rate 22 19 Blood Pressure 94/54 L Pulse Oximetry 98 99 Oxygen Delivery Method 12/04/21 03:12 12/04/21 03:12 12/04/21 03:17 Pulse Rate 71 Respiratory Rate 18 Blood Pressure 91/55 L 92/52 L Pulse Oximetry 98 Oxygen Delivery Method 12/04/21 03:17 12/04/21 03:20 12/04/21 03:20 Pulse Rate 71 71 Respiratory Rate 26 H 26 H Blood Pressure 94/54 L Pulse Oximetry 99 98 Oxygen Delivery Method 12/04/21 03:29 12/04/21 03:29 12/04/21 03:30 Pulse Rate 74 74 Respiratory Rate 27 H 23 Blood Pressure 90/54 L Pulse Oximetry 98 99 Oxygen Delivery Method 12/04/21 03:32 12/04/21 03:32 12/04/21 03:36 Pulse Rate 74 70 Respiratory Rate 23 18 Blood Pressure 85/53 L Pulse Oximetry 98 97 Oxygen Delivery Method 12/04/21 03:36 12/04/21 03:40 12/04/21 03:40 Pulse Rate 68 Respiratory Rate 17 Blood Pressure 85/50 L 84/53 L Pulse Oximetry 97 Oxygen Delivery Method 12/04/21 03:44 12/04/21 03:44 12/04/21 03:48 Pulse Rate 69 Respiratory Rate 19 Blood Pressure 83/52 L 88/54 L Pulse Oximetry 97 Oxygen Delivery Method 12/04/21 03:48 12/04/21 03:52 12/04/21 03:52 Pulse Rate 68 68 Respiratory Rate 16 15 Blood Pressure 81/53 L Pulse Oximetry 98 97 Oxygen Delivery Method 12/04/21 03:56 12/04/21 03:56 12/04/21 04:00 Pulse Rate 68 74 Respiratory Rate 17 26 H Blood Pressure 84/51 L Pulse Oximetry 97 98 Oxygen Delivery Method 12/04/21 04:01 12/04/21 04:01 12/04/21 04:08 Pulse Rate 75 Respiratory Rate 28 H Blood Pressure 81/56 L 105/65 Pulse Oximetry 98 Oxygen Delivery Method 12/04/21 04:08 12/04/21 04:12 12/04/21 04:12 Pulse Rate 72 73 Respiratory Rate 23 21 Blood Pressure 105/64 Pulse Oximetry 97 97 Oxygen Delivery Method 12/04/21 04:16 12/04/21 04:16 12/04/21 04:20 Pulse Rate 73 Respiratory Rate 22 Blood Pressure 112/65 112/64 Pulse Oximetry 96 Oxygen Delivery Method 12/04/21 04:20 12/04/21 04:24 12/04/21 04:24 Pulse Rate 71 74 Respiratory Rate 17 16 Blood Pressure 119/65 Pulse Oximetry 96 96 Oxygen Delivery Method 12/04/21 04:28 12/04/21 04:28 12/04/21 04:30 Pulse Rate 73 72 Respiratory Rate 21 18 Blood Pressure 106/56 L Pulse Oximetry 97 98 Oxygen Delivery Method 12/04/21 04:32 12/04/21 04:32 12/04/21 04:36 Pulse Rate 72 Respiratory Rate 17 Blood Pressure 94/51 L 108/56 L Pulse Oximetry 99 Oxygen Delivery Method 12/04/21 04:36 12/04/21 04:42 12/04/21 04:42 Pulse Rate 69 73 Respiratory Rate 29 H 21 Blood Pressure 78/42 L Pulse Oximetry 97 99 Oxygen Delivery Method 12/04/21 04:45 12/04/21 04:45 12/04/21 04:47 Pulse Rate 69 70 Respiratory Rate 30 H 28 H Blood Pressure 82/50 L Pulse Oximetry 100 100 Oxygen Delivery Method 12/04/21 04:48 12/04/21 04:48 12/04/21 04:52 Pulse Rate 70 71 Respiratory Rate 34 H 17 Blood Pressure 119/58 L Pulse Oximetry 99 99 Oxygen Delivery Method 12/04/21 04:52 12/04/21 04:56 12/04/21 04:56 Pulse Rate 71 Respiratory Rate 17 Blood Pressure 149/81 H 152/62 H Pulse Oximetry 100 Oxygen Delivery Method 12/04/21 05:00 12/04/21 05:00 12/04/21 05:04 Pulse Rate 74 Respiratory Rate 19 Blood Pressure 149/66 H 141/65 H Pulse Oximetry 100 Oxygen Delivery Method 12/04/21 05:04 12/04/21 05:08 12/04/21 05:08 Pulse Rate 79 79 Respiratory Rate 14 15 Blood Pressure 134/62 Pulse Oximetry 100 99 Oxygen Delivery Method 12/04/21 05:12 12/04/21 05:12 12/04/21 05:16 Pulse Rate 77 Respiratory Rate 18 Blood Pressure 150/84 H 160/82 H Pulse Oximetry 99 Oxygen Delivery Method 12/04/21 05:16 12/04/21 05:20 12/04/21 05:20 Pulse Rate 76 73 Respiratory Rate 20 21 Blood Pressure 129/62 Pulse Oximetry 98 98 Oxygen Delivery Method 12/04/21 05:24 12/04/21 05:24 12/04/21 05:28 Pulse Rate 73 Respiratory Rate 22 Blood Pressure 125/61 115/62 Pulse Oximetry 98 Oxygen Delivery Method 12/04/21 05:28 12/04/21 05:30 12/04/21 05:33 Pulse Rate 77 74 Respiratory Rate 26 H 35 H Blood Pressure 99/54 L Pulse Oximetry 96 100 Oxygen Delivery Method 12/04/21 05:33 12/04/21 05:40 12/04/21 05:44 Pulse Rate 77 Respiratory Rate 33 H Blood Pressure 103/56 L 97/72 Pulse Oximetry 99 Oxygen Delivery Method 12/04/21 05:50 12/04/21 05:50 12/04/21 05:30 Pulse Rate 75 75 Respiratory Rate 24 24 Blood Pressure 130/62 Pulse Oximetry 99 Oxygen Delivery Method 12/04/21 02:00 12/04/21 04:00 12/04/21 05:45 Pulse Rate 81 79 78 Respiratory Rate 20 25 H 40 H Blood Pressure 120/60 130/62 Pulse Oximetry 99 98 99 Oxygen Delivery Method 12/04/21 06:57 12/04/21 07:58 Pulse Rate Respiratory Rate Blood Pressure Pulse Oximetry Oxygen Delivery Method Heated High Flow Heated High Flow Fraction of Inspired Oxygen 30 Oxygen Delivery Method Heated High Flow Oxygen Flow Rate 15 Narrative Exam Narrative: Gen: NAD, sitting comfortably in bed, appears her usual self, pleasantly conversant in complete sentences, severely kyphotic CV: RRR, grade 3/6 systolic murmur Resp: crackles bilateral bases, no wheezes, good air movement throughtout Abd: soft, nontender, nondistended, normoactive bowel sounds Ext: no edema Neuro: no gross deficits Objective Labs Result Diagrams: 12/03/21 20:26 12/03/21 20:26 Labs: Laboratory Results - last 24 hr 12/03/21 12/03/21 12/03/21 20:26 20:26 20:26 WBC 19.6 H RBC 4.32 Hgb 13.0 Hct 40.6 MCV 94.1 MCH 30.1 MCHC 32.0 RDW 15.2 H Plt Count 262 Neut % (Auto) 46.6 L Lymph % (Auto) 43.0 H [place] % (Auto) 6.6 Eos % (Auto) 2.7 Baso % (Auto) 1.1 Neut # (Auto) 9100 H Lymph # (Auto) 8400 H [place] # (Auto) 1300 H Eos # (Auto) 500 H Baso # (Auto) 200 H PT 13.6 H INR 1.2 D-Dimer ABG pH ABG pCO2 ABG pO2 ABG HCO3 ABG Total CO2 ABG O2 Saturation ABG Base Excess FiO2 Sodium 139 Potassium 4.2 Chloride 103 Carbon Dioxide 25 BUN 21 H Creatinine 0.49 L Estimated GFR > 60 BUN/Creatinine Ratio 42.9 H Glucose 238 H Lactate Calcium 8.9 Total Bilirubin 0.6 AST 33 ALT 16 Alkaline Phosphatase 40 Total Creatine Kinase CK-MB (CK-2) CK-MB (CK-2) Rel Index Troponin I NT-Pro-B Natriuret Pep 3080 H Total Protein 5.9 L Albumin 3.6 Globulin 2.3 Albumin/Globulin Ratio 1.6 Procalcitonin 0.18 Nasal Screen MRSA (PCR) SARS-CoV-2 (PCR) 12/03/21 12/03/21 12/03/21 20:26 20:26 20:26 WBC RBC Hgb Hct MCV MCH MCHC RDW Plt Count Neut % (Auto) Lymph % (Auto) [place] % (Auto) Eos % (Auto) Baso % (Auto) Neut # (Auto) Lymph # (Auto) [place] # (Auto) Eos # (Auto) Baso # (Auto) PT INR D-Dimer 881 H ABG pH ABG pCO2 ABG pO2 ABG HCO3 ABG Total CO2 ABG O2 Saturation ABG Base Excess FiO2 Sodium Potassium Chloride Carbon Dioxide BUN Creatinine Estimated GFR BUN/Creatinine Ratio Glucose Lactate 3.2 H Calcium Total Bilirubin AST ALT Alkaline Phosphatase Total Creatine Kinase 57 CK-MB (CK-2) TNP CK-MB (CK-2) Rel Index TNP Troponin I < 0.012 NT-Pro-B Natriuret Pep Total Protein Albumin Globulin Albumin/Globulin Ratio Procalcitonin Nasal Screen MRSA (PCR) SARS-CoV-2 (PCR) 12/03/21 12/03/21 12/03/21 20:40 21:14 22:45 WBC RBC Hgb Hct MCV MCH MCHC RDW Plt Count Neut % (Auto) Lymph % (Auto) [place] % (Auto) Eos % (Auto) Baso % (Auto) Neut # (Auto) Lymph # (Auto) [place] # (Auto) Eos # (Auto) Baso # (Auto) PT INR D-Dimer ABG pH 7.34 L ABG pCO2 49.4 H ABG pO2 138 H ABG HCO3 27 H ABG Total CO2 28 ABG O2 Saturation 99 ABG Base Excess 1.0 FiO2 60 Sodium Potassium Chloride Carbon Dioxide BUN Creatinine Estimated GFR BUN/Creatinine Ratio Glucose Lactate 3.1 H Calcium Total Bilirubin AST ALT Alkaline Phosphatase Total Creatine Kinase CK-MB (CK-2) CK-MB (CK-2) Rel Index Troponin I NT-Pro-B Natriuret Pep Total Protein Albumin Globulin Albumin/Globulin Ratio Procalcitonin Nasal Screen MRSA (PCR) SARS-CoV-2 (PCR) Negative 12/04/21 06:00 WBC RBC Hgb Hct MCV MCH MCHC RDW Plt Count Neut % (Auto) Lymph % (Auto) [place] % (Auto) Eos % (Auto) Baso % (Auto) Neut # (Auto) Lymph # (Auto) [place] # (Auto) Eos # (Auto) Baso # (Auto) PT INR D-Dimer ABG pH ABG pCO2 ABG pO2 ABG HCO3 ABG Total CO2 ABG O2 Saturation ABG Base Excess FiO2 Sodium Potassium Chloride Carbon Dioxide BUN Creatinine Estimated GFR BUN/Creatinine Ratio Glucose Lactate Calcium Total Bilirubin AST ALT Alkaline Phosphatase Total Creatine Kinase CK-MB (CK-2) CK-MB (CK-2) Rel Index Troponin I NT-Pro-B Natriuret Pep Total Protein Albumin Globulin Albumin/Globulin Ratio Procalcitonin Nasal Screen MRSA (PCR) Negative for mrsa SARS-CoV-2 (PCR) Assessment & Plan Assessment & Plan narrative: Pt is a 76yo woman with RA, MS, atrial fibrillation, EF preserved CHF, osteoporosis, severe kyphoscoliosis, who is wheelchair bound who presented with acute SOB, found to have acute hypoxemic respiratory failure and be in septic shock requiring pressure support. 1) Acute hypoxemic respiratory failure: Likely multifactorial from pneumonia and CHF exacerbation. Very acute onset. Stable on heated high flow NC at 45L, 30% 2) Community-acquired pneumonia: Relatively immobility at home and CHF risk factors. On broad spectrum coverage, hopefully can narrow once cultures return and as respiratory status improves. 3) Acute on chronic ejection fraction preserved CHF: Evidence of pulmonary edema on CXR. Good response thus far to one dose of 40mg IV Lasix given in the ED, with 0.75cc/kg/hr out. 4) Septic shock: Requiring pressure support on Levophed. No evidence of kidney/liver injury based on labs. Likely due to pneumonia. 5) Atrial fibrillation: Paroxysmal. Stable and rate controlled, currently in sinus rhythm. 6) Multiple Sclerosis: Stable 7) Rheumatoid arthritis: Stable 8) Severe kyphoscoliosis: Stable. Wheelchair bound at baseline. ICU tobacco grader consulted. Appreciate ongoing care and recommendations. FEN: - NPO for now due to respiratory status/risk aspiration - Advance diet once respiratory status improves CV: - Continue Levophed drip to keep MAP > 60, recently increased to 8mcg from 7mcg - Pressure support rather than additional fluids due to CHF - Pt with good response to intial dose of Lasix given in the ED, no additional diuresis for now - Continue Amiodarone, Apixaban - Stress dose IV hydrocortisone Resp: - Continue heated high flow NC - Daily CXR ID: - F/U blood cultures, sputum culture not obtainable - Continue IV Vancomycin and Zosyn Rheum: - Hold home meds while NPO - On stress dose IV hydrocortisone for now DVT ppx: On Apixaban Code: DNR/DNI, confirmed this morning Dispo: Pending stabilization of BPs and respiratory status. Anticipate several additional days. Pt with repeated hospitalizations, and would likely benefit from SNF/higher level of care. Currently living independently with caregivers coming to her home. Historically, pt has been resistant to this. Brought up briefly this morning, can continue to address. Time Spent With Patient Critical Care time: I spent a total of [] minutes of critical care time on this patient's care today; this time is exclusive of procedural time.
[2021-12-04] MEDS: PIPERACILLIN/TAZO 3.375 GM in SODIUM CHLORIDE 0.9% 100 ML IV ×2 (09:09→17:24)
[2021-12-04] MEDS: HYDROCORTISONE 100 MG/2 ML VIAL IV ×2 (09:09→15:55)
[2021-12-04] MEDS: VANCOMYCIN 750 MG/150 ML PIGGYBACK 150 MG IV ×2 (09:09→19:58)
[2021-12-04] MEDS: APIXABAN 5 MG TABLET PO ×2 (09:09→21:18)
[2021-12-04] MEDS: AMIODARONE 200 MG TABLET PO (09:09)
[2021-12-04 09:41] LABS: Lactate (Lactic Acid) 0.9 mmol/L (0.7-2.1)
[2021-12-04] MEDS: NOREPINEPHRINE 8 MG in DEXTROSE 5% IN WATER 250 ML 15.48 MG IV (10:14)
--- NOTE | 2021-12-04 10:36 | PC.NURSE ---
Addendum entered by Cande Rutledge R.N. 12/04/21 17:43: Patient alert and oriented with very pleasant affect this shift. Able to make needs known. Repositioned patient as frequently as she would allow. Taken off of HHF this AM and able to be on room air all shift without complications. Levophed weaned off (see emar) per protocol. Blood pressure consitently having a map >60. Patient advanced to clear liquid diet per Dr. Negron (once off of HHF) and tolerating it well. Patient denies pain or needs. Call light within reach and bed alarm on. Original Note: Told in report that patient's levophed was running at 7mcg/min. Verified that this was indeed what was running, but emar did not reflect that. Updated emar for what was running when this nurse came on (7mcg/min) at 0700. Titrated up to 8mcg/min per protocol to keep map >60 (Dr[address]). Nurse Clinician notified of discrepency on emar, but that it was running correctly for protocol.
[2021-12-04] MEDS: ACETAMINOPHEN 325 MG TABLET 650 MG PO ×2 (12:00→17:19)
--- NOTE | 2021-12-04 12:11 | DI.ECHO.S_ITS ---
[facility] +---------+ [facility] +---------+ : : [address] : [place] : : : : [id number] : : : : Phone: [phone]+ Echocardiogram Report + + :Name: CHINMAY SIMS Study Date: 12/04/2021 Height: 62 in : :[facility] ReadingLocation: Weight: 100 lb : : Gender: Female BSA: 1.4 m2 : :: 1945 Age: 76 yrs BP: 102/58 mmHg: :Reason For Study: Congestive Heart Failure : :Ordering Physician: Domingo, : :Marleni Performed By: Pedrito Hoffman : :Referring: Marleni Lane : + + Interpretation Summary The left ventricle is normal in size. There is moderate-severe concentric left ventricular hypertrophy. Left ventricular systolic function is normal. The ejection fraction is estimated to be 55-60%. There are no focal wall motion abnormalities. The right ventricle is normal in size and function. The IVC is dilated (diameter is greater than 2.1 cm) yet it collapses greater than 50% with a sniff. This suggests a right atrial pressure of 8 mm Hg. Procedure: A two-dimensional transthoracic echocardiogram with color flow and Doppler was performed in limited views only. The study quality was technically adequate. Comparison is made with the echocardiogram of 10/22/2021. Left Ventricle: The left ventricle is normal in size. There is moderate- severe concentric left ventricular hypertrophy. Left ventricular systolic function is normal. The ejection fraction is estimated to be 55-60%. There are no focal wall motion abnormalities. Right Ventricle: The right ventricle is normal in size and function. Atria: The left atrium is severely dilated. The right atrium grossly appears normal in size. Mitral Valve: There is severe mitral annular calcification. Great Vessels: The IVC is dilated (diameter is greater than 2.1 cm) yet it collapses greater than 50% with a sniff. This suggests a right atrial pressure of 8 mm Hg. Pericardium/ Pleura There is no pericardial effusion. There is no pleural effusion. MMode/2D Measurements & Calculations LVIDd: 5.1 cm LA A2 area: 25.8 cm2 LVIDs: 3.6 cm LA A4 area: 27.3 cm2 FS: 30.5 % LA length (vol): 5.9 cm IVSd: 1.3 cm LA vol: 101.2 ml LVPWd: 1.4 cm LA vol index: 71.1 ml/m2 LV mcgraw. diameter/BSA (cm/m^2): 3.6 LV sys. diameter/BSA (cm/m^2): 2.5 RA long axis: 4.9 cm TAPSE: 1.7 cm RA area: 14.0 cm2 RA vol: 33.9 ml RA : 23.8 ml/m2 IVC diam: 2.5 cm Reading Physician:03:22 PM
--- NOTE | 2021-12-04 20:42 | PM.ICURNDS ---
- :: This patient was seen via real time interactive two-way audiovisual telecommunication. patietn now off pressors, diruesed well, and now on RA. will continue diuresis, with goal negative balance, map gola >6, albuin as needed, f/u TTE.
[2021-12-04] MEDS: SODIUM CHLORIDE 0.9% FLUSH 10 ML IV (21:18)
[2021-12-05] VITALS (116 sets, daily range): BP systolic 82–143; BP diastolic 43–91; PULSE 58–93; RESP 12–57; TEMP 36.7–36.8; O2SAT 93–100
[2021-12-05] MEDS: HYDROCORTISONE 100 MG/2 ML VIAL IV ×2 (00:08→08:17)
[2021-12-05] MEDS: FUROSEMIDE 40 MG/4 ML VIAL IV (00:09)
[2021-12-05] MEDS: PIPERACILLIN/TAZO 3.375 GM in SODIUM CHLORIDE 0.9% 100 ML IV ×3 (00:32→16:57)
[2021-12-05 05:44] LABS: BUN Creatinine Ratio 23.6 (6-22); Blood Urea Nitrogen 13 mg/dL (7-17); Calcium 7.6 mg/dL (8.4-10.2); Carbon Dioxide 29 mmol/L (22-32); Chloride 105 mmol/L (98-107); Estimated Glomerular Filt Rate > 60 mL/min (>60); Glucose 143 mg/dL (80-110); HEMOLYSIS < 15 (0-50); Sodium 140 mmol/L (137-145)
[2021-12-05 06:04] LABS: Potassium 2.5 mmol/L (3.4-5.1)
[2021-12-05 06:36] LABS: Magnesium 1.8 mg/dL (1.6-2.3)
[2021-12-05] MEDS: POTASSIUM CHLORIDE IN WATER 10 MEQ/100 ML PIGGYBACK 100 MEQ IV ×6 (06:47→14:03)
[2021-12-05] MEDS: VANCOMYCIN 750 MG/150 ML PIGGYBACK 150 MG IV ×2 (08:17→21:32)
[2021-12-05] MEDS: APIXABAN 5 MG TABLET PO ×2 (08:18→20:51)
[2021-12-05] MEDS: AMIODARONE 200 MG TABLET PO (08:18)
[2021-12-05] MEDS: SODIUM CHLORIDE 0.9% FLUSH 10 ML IV ×3 (08:19→20:34)
--- NOTE | 2021-12-05 09:45 | P.PN_ITS ---
Subjective Subjective Date Patient Seen: 12/05/21 Time Patient Seen: 09:45 Interval history: Patient now off pressors. Blood pressure seems stable. She is actually also on room air not requiring oxygen supplementation. She is had some adequate diuresis. Repeat limited echocardiogram demonstrates preserved left ventricular function without new significant valvular heart disease A bit hypokalemic this morning, renal function remains normal. Magnesium normal Exam Vital Signs (past 8 hours): - 12/05/21 02:00 12/05/21 02:00 12/05/21 02:15 Pulse Rate 62 60 Respiratory Rate 16 20 Blood Pressure 100/60 Pulse Oximetry 99 99 Oxygen Delivery Method 12/05/21 02:30 12/05/21 02:30 12/05/21 02:45 Pulse Rate 58 L 61 Respiratory Rate 23 16 Blood Pressure 93/51 L Pulse Oximetry 98 99 Oxygen Delivery Method 12/05/21 03:00 12/05/21 03:00 12/05/21 03:15 Pulse Rate 59 L 60 Respiratory Rate 15 17 Blood Pressure 116/57 L Pulse Oximetry 99 98 Oxygen Delivery Method 12/05/21 03:30 12/05/21 03:30 12/05/21 03:45 Pulse Rate 58 L 58 L Respiratory Rate 13 12 Blood Pressure 101/58 L Pulse Oximetry 97 98 Oxygen Delivery Method 12/05/21 04:00 12/05/21 04:00 12/05/21 04:15 Pulse Rate 60 64 Respiratory Rate 15 19 Blood Pressure 113/58 L Pulse Oximetry 99 100 Oxygen Delivery Method 12/05/21 04:30 12/05/21 04:30 12/05/21 04:45 Pulse Rate 60 58 L Respiratory Rate 12 12 Blood Pressure 96/55 L Pulse Oximetry 99 99 Oxygen Delivery Method 12/05/21 05:00 12/05/21 05:01 12/05/21 05:01 Pulse Rate 60 60 Respiratory Rate 16 16 Blood Pressure 116/55 L Pulse Oximetry 100 100 Oxygen Delivery Method 12/05/21 05:20 12/05/21 05:15 12/05/21 05:30 Pulse Rate 58 L Respiratory Rate 14 Blood Pressure 100/56 L Pulse Oximetry 100 Oxygen Delivery Method Nasal Cannula 12/05/21 05:30 12/05/21 05:45 12/05/21 06:00 Pulse Rate 58 L 60 Respiratory Rate 13 13 Blood Pressure 115/64 Pulse Oximetry 99 100 Oxygen Delivery Method 12/05/21 06:00 12/05/21 06:15 12/05/21 06:30 Pulse Rate 61 71 63 Respiratory Rate 19 32 H 23 Blood Pressure Pulse Oximetry 99 98 98 Oxygen Delivery Method 12/05/21 06:31 12/05/21 06:31 12/05/21 06:45 Pulse Rate 63 65 Respiratory Rate 19 22 Blood Pressure 122/59 L Pulse Oximetry 98 96 Oxygen Delivery Method 12/05/21 07:00 12/05/21 07:01 12/05/21 07:01 Pulse Rate 67 66 Respiratory Rate 21 18 Blood Pressure 117/59 L Pulse Oximetry 96 96 Oxygen Delivery Method 12/05/21 07:15 12/05/21 07:30 12/05/21 07:30 Pulse Rate 69 66 Respiratory Rate 19 26 H Blood Pressure 100/68 Pulse Oximetry 97 95 Oxygen Delivery Method 12/05/21 07:45 12/05/21 08:00 12/05/21 08:15 Pulse Rate 71 65 74 Respiratory Rate 33 H 29 H 27 H Blood Pressure Pulse Oximetry 96 97 98 Oxygen Delivery Method Fraction of Inspired Oxygen 30 Oxygen Delivery Method Nasal Cannula Oxygen Flow Rate 0 Objective Labs Result Diagrams: 12/03/21 20:26 12/05/21 05:25 Labs: Laboratory Results - last 24 hr 12/05/21 12/05/21 05:25 05:25 Sodium 140 Potassium 2.5 L* D Chloride 105 Carbon Dioxide 29 BUN 13 Creatinine 0.55 Estimated GFR > 60 BUN/Creatinine Ratio 23.6 H Glucose 143 H Calcium 7.6 L Magnesium 1.8 PFSH Medical History Hyperlipidemia Rheumatoid arthritis Social History household members: none Smoking Status: Never smoker alcohol intake: never Assessment & Plan Assessment & Plan narrative: 1. Respiratory-patient presented with rather acute onset severe respiratory failure requiring BiPAP initially. The sudden nature of her onset of symptoms would much more strongly suggest congestive heart failure as a cause of symptoms rather than pneumonia however white count was elevated lactate was elevated. Procalcitonin was normal however and BNP was also mixed not quite as high as pre vious but also elevated. With patient's prior admission to the hospital in October with equally sudden onset respiratory distress in the and felt to be more congestive heart failure than anything else she also had a bit of a leukocytosis. However she did appear to be septic upon admission requiring p ressors etcetera which would be consistent with an infectious etiology. In the end, however, I think this was most likely an episode rather ?flash pulmonary edema ?this seemingly is now resolved. I do think she deserves continued treatment with antibiotics to complete a course for potential infect ious etiology especially given her chronic immunosuppressive status with the chronic steroid therapy and immuno suppressive therapy she is receiving on ongoing basis for her RA Blood cultures negative thus far. She is afebrile. I think she can be safely switch to oral therapy for pneumonia while continuing to gently diurese her 2. Cardiac-as above I believe patient's presentation likely secondary to flash pulmonary edema. Patient with preserved left ventricular function based on limited echocardiography. Continue with gentle diuresis and monitoring electrolytes and renal function as above. Patient remains in sinus rhythm at this time does have a history of AFib with rapid ventricular response indefinitely needs to continue on her amiodarone at this point 3. Rheumatoid arthritis-continue patient's usual medications including her Plaquenil which I will re-initiate. She is on stress dose steroids which we can begin to taper. She also takes methotrexate on a weekly basis and I would hold off on that for the moment (she normally takes on Tuesdays anyway). 4. Endo-patient chronically on prednisone and is receiving stress dose parental steroids. I would continue that through the course of the day today and then probably switch to oral steroids at a higher than patient's chronic daily dose. 5. GI-patient had issues with constipation requires a fair number of bowel meds to promote transit. Will put her back on MiraLax and have oral bisacodyl available for her as needed. 6. Adrenal-patient on stress dose IV steroids. I think beginning today we can reduce her dosing as has been done by tele ICU physician. Eventually we can get her back on her home dose of prednisone 7. Disposition-patient has been living independently with caregivers coming to the home. Now with 2 relatively back to back hospitalizations I am not convinced that it is appropriate for patient to return to her same living environment. Will ask for skilled therapies to evaluate her especially occupational therapy etcetera. Alternative placement such as short stay in SNF followed by assisted living may well be far more appropriate for the long-term obviously however patient is resistant to this Note: Greater than 30 minutes total time was spent on day of service, evaluating the patient on the floor, including examining the patient, discussing clinical course with clinical and nursing staff, reviewing clinical course in the computer, preparing documentation and writing orders for continued management of care, discussing status with family as appropriate, reviewing plans for the next 24 hours with both patient/family and nursing staff as appropriate. COVID-19 COVID-19 status: Negative Result date/Date tested (Pos, Neg/Pending): 01/01/22 Quality VTE Deep Vein Thrombosis/Pulmonary Embolism Present on Admission: No
--- NOTE | 2021-12-05 09:45 | P.TELICUPN_ITS ---
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 care: Yes Patient Location: ICU Provider location (State): [place] Other participants/roles: RN & md Interval history: 76-year-old with history of CHF, AFib (s/p DCCV, on Apixaban & amiodarone) , LBBB , H/o of MS, RA on ( prednisone, methotrexate and hydroxychloroquine) osteoporosis, severe kyphoscoliosis , NH resident, presented with shortness of breath, found to have acute hypoxemic respiratory failure, CXR showing diffuse patchy bilateral infiltrate, DD include pul edema and multifocal PNA, pt started on Levo, received a bolus of NS and IV Lasix 40 mg, already had 1.4 L of urine, received Vanc, Zosyn and Levaquin. Last Echo showed diastolic HF grade II , EF 50% with mod to sever , mild to mod MS. Today, Off pressor & oxygen support. Assessment: Acute hypoxemic resp failure likely multifactorial ( PNA and CHF exacerbation) Multifocal PNA Acute on chronic HFpEF Septic shock Lactic acidosis 2/2 sepsis and hypoxia H/o of AFib (s/p DCCV, on Apixaban & amiodarone) H/o of LBBB H/o of MS H/o of RA H/o of severe kyphoscoliosis Rec: Comfortable on RA adjust diuresis, lasix 20 iv bid IV Zosyn and Vanc, blood and resp cx, mrsa screen Wean off IV hydrocortisone stress dose lactate normalied and off pressor cont amiodarone and apixaban, trend LFT daily On BZD at night, watch for withdrawal, consider a smaller dose if pt regularly taking it Code status DNR/DNI per ED MD and [employer] Current Medications Current Medications Medications: Home Medications ascorbic acid (vitamin C) 500 mg tablet 1,000 mg PO DAILY ##0 02/10/16 [History Confirmed 07/24/21] folic acid 1 mg tablet 1 mg PO DAILY ##0 02/10/16 [History Confirmed 07/24/21] lorazepam 0.5 mg tablet (Ativan) 0.5 mg PO HS #90 tabs 02/10/16 [History Confirmed 07/24/21] multivitamin (Multiple Vitamins tablet) 1 tab PO DAILY ##0 02/10/16 [History Confirmed 07/24/21] mupirocin 2 % topical ointment 1 applictn topical BID #30 grams 04/06/18 [Rx Confirmed 07/24/21] incontinence supplies #150 ea 05/05/18 [Rx Confirmed 12/03/21] wheelchair #1 ea 07/24/18 [Rx Confirmed 12/03/21] methotrexate sodium 2.5 mg tablet 12.5 mg PO .COMPLEX #90 tabs 12/10/20 [Rx Confirmed 07/24/21] atorvastatin 40 mg tablet See Rx Instructions .Route .COMPLEX #90 tabs 12/15/20 [Rx Confirmed 07/24/21] david lift #1 ea 04/14/21 [Rx Confirmed 12/03/21] amiodarone 200 mg tablet 200 mg PO DAILY #30 tabs 07/19/21 [Rx Confirmed 07/24/21] purewick female catheter #1 ea 08/03/21 [Rx Confirmed 12/03/21] purewick replacement canisters #1 ea 08/03/21 [Rx Confirmed 12/03/21] purewick suction canister #1 ea 08/03/21 [Rx Confirmed 12/03/21] apixaban 5 mg tablet (Eliquis) 5 mg PO BID #60 tabs 08/07/21 [Rx] potassium chloride 10 mEq capsule,extended release See Rx Instructions .Route .COMPLEX #60 caps 08/11/21 [Rx] hydroxychloroquine 200 mg tablet (Plaquenil) 200 mg PO BID #180 tabs 10/16/21 [Rx] prednisone 20 mg tablet 20 mg PO DAILY #12 tabs 10/24/21 [Rx] magnesium citrate 150 ml PO DAILY PRN constipation #296 mL 11/17/21 [Rx] polyethylene glycol 3350 17 gram/dose oral powder (Miralax) 17 g PO DAILY #119 grams 11/17/21 [Rx] bisacodyl 5 mg tablet,delayed release (Alophen (bisacodyl)) 5 mg PO BEDTIME PRN as needed for constipation #30 tabs 11/25/21 [Rx] furosemide 20 mg tablet 20 mg PO DAILY #90 tabs 11/25/21 [Rx] Visit Medications (administered) Generic Name Dose Route Start Last Admin Trade Name Freq PRN Reason Stop Dose Admin Acetaminophen 650 mg 12/04/21 12:00 12/05/21 06:01 Acetaminophen 325 Mg Tablet PO Not Given Q6HR MÓNICA Amiodarone HCl 200 mg 12/04/21 09:00 12/05/21 08:18 Amiodarone 200 Mg Tablet PO 200 mg DAILY MÓNICA Administration Apixaban 5 mg 12/04/21 09:00 12/05/21 08:18 Apixaban 5 Mg Tablet PO 5 mg BID MÓNICA Administration Furosemide 40 mg 12/05/21 00:00 12/05/21 00:09 Furosemide 40 Mg/4 Ml Vial IV 40 mg Q12HR MÓNICA Administration Hydrocortisone 100 mg 12/04/21 07:46 12/05/21 08:17 Hydrocortisone 100 Mg/2 Ml Vial IV 100 mg Q8H MÓNICA Administration Vancomycin HCl 750 mg in 150 mls @ 150 mls/hr 12/04/21 08:00 12/05/21 08:17 Vancomycin IV 150 mls/hr Q12H MÓNICA Administration Piperacillin Sod/Tazobactam 100 mls @ 25 mls/hr 12/04/21 09:00 12/05/21 08:18 Sod 3.375 gm/ Sodium Chloride IV 25 mls/hr Q8H MÓNICA Administration Norepinephrine Bitartrate 8 mg 258 mls @ 15.48 mls/hr 12/04/21 10:00 12/04/21 15:25 / Dextrose IV 0 mcg/min TITRATE MÓNICA 0 mls/hr Titration Protocol 8 MCG/MIN POTASSIUM CHLORIDE IN WATER 10 meq in 100 mls @ 100 mls/hr 12/05/21 06:30 12/05/21 08:16 Potassium Cl 10 Meq/100 Ml Candice IV 12/05/21 12:29 100 mls/hr Q1H MÓNICA Administration Sodium Chloride 10 ml 12/04/21 21:00 12/05/21 08:19 Sodium Chloride 0.9% Flush IV 10 ml BID MÓNICA Administration Objective Labs Result Diagrams: 12/03/21 20:26 12/05/21 05:25 Labs: Laboratory Results - last 24 hr 12/05/21 12/05/21 05:25 05:25 Sodium 140 Potassium 2.5 L* D Chloride 105 Carbon Dioxide 29 BUN 13 Creatinine 0.55 Estimated GFR > 60 BUN/Creatinine Ratio 23.6 H Glucose 143 H Calcium 7.6 L Magnesium 1.8 Exam Vital Signs (past 8 hours): - 12/05/21 02:00 12/05/21 02:00 12/05/21 02:15 Pulse Rate 62 60 Respiratory Rate 16 20 Blood Pressure 100/60 Pulse Oximetry 99 99 Oxygen Delivery Method 12/05/21 02:30 12/05/21 02:30 12/05/21 02:45 Pulse Rate 58 L 61 Respiratory Rate 23 16 Blood Pressure 93/51 L Pulse Oximetry 98 99 Oxygen Delivery Method 12/05/21 03:00 12/05/21 03:00 12/05/21 03:15 Pulse Rate 59 L 60 Respiratory Rate 15 17 Blood Pressure 116/57 L Pulse Oximetry 99 98 Oxygen Delivery Method 12/05/21 03:30 12/05/21 03:30 12/05/21 03:45 Pulse Rate 58 L 58 L Respiratory Rate 13 12 Blood Pressure 101/58 L Pulse Oximetry 97 98 Oxygen Delivery Method 12/05/21 04:00 12/05/21 04:00 12/05/21 04:15 Pulse Rate 60 64 Respiratory Rate 15 19 Blood Pressure 113/58 L Pulse Oximetry 99 100 Oxygen Delivery Method 12/05/21 04:30 12/05/21 04:30 12/05/21 04:45 Pulse Rate 60 58 L Respiratory Rate 12 12 Blood Pressure 96/55 L Pulse Oximetry 99 99 Oxygen Delivery Method 12/05/21 05:00 12/05/21 05:01 12/05/21 05:01 Pulse Rate 60 60 Respiratory Rate 16 16 Blood Pressure 116/55 L Pulse Oximetry 100 100 Oxygen Delivery Method 12/05/21 05:20 12/05/21 05:15 12/05/21 05:30 Pulse Rate 58 L Respiratory Rate 14 Blood Pressure 100/56 L Pulse Oximetry 100 Oxygen Delivery Method Nasal Cannula 12/05/21 05:30 12/05/21 05:45 12/05/21 06:00 Pulse Rate 58 L 60 Respiratory Rate 13 13 Blood Pressure 115/64 Pulse Oximetry 99 100 Oxygen Delivery Method 12/05/21 06:00 12/05/21 06:15 12/05/21 06:30 Pulse Rate 61 71 63 Respiratory Rate 19 32 H 23 Blood Pressure Pulse Oximetry 99 98 98 Oxygen Delivery Method 12/05/21 06:31 12/05/21 06:31 12/05/21 06:45 Pulse Rate 63 65 Respiratory Rate 19 22 Blood Pressure 122/59 L Pulse Oximetry 98 96 Oxygen Delivery Method 12/05/21 07:00 12/05/21 07:01 12/05/21 07:01 Pulse Rate 67 66 Respiratory Rate 21 18 Blood Pressure 117/59 L Pulse Oximetry 96 96 Oxygen Delivery Method 12/05/21 07:15 12/05/21 07:30 12/05/21 07:30 Pulse Rate 69 66 Respiratory Rate 19 26 H Blood Pressure 100/68 Pulse Oximetry 97 95 Oxygen Delivery Method 12/05/21 07:45 12/05/21 08:00 12/05/21 08:15 Pulse Rate 71 65 74 Respiratory Rate 33 H 29 H 27 H Blood Pressure Pulse Oximetry 96 97 98 Oxygen Delivery Method Fraction of Inspired Oxygen 30 Oxygen Delivery Method Nasal Cannula Oxygen Flow Rate 0 Quality TeleICU VTE Deep Vein Thrombosis/Pulmonary Embolism Present on Admission: No Assessment & Plan Time Spent With Patient Critical Care time: I spent a total of [] minutes of critical care time on this patient's care today; this time is exclusive of procedural time.
--- NOTE | 2021-12-05 10:37 | PT-IP ANOTE ---
Physical therapy order received. Pt is currently on a bedrest order. Will hold evaluation until her activity order is upgraded and she is clear to advance her activity.
--- NOTE | 2021-12-05 11:07 | OT.IPNOTE ---
Addendum entered and electronically signed by Terra Juan OT 12/05/21 13:03: Able to leave a message for Dr. Granado to clarify if therapy order are indicated as per pt feels at her baseline which is assist for all ADl and use of david for transfers. Awaiting advice, to hold OT eval for now. Original Note: Pt still bed rest and able to talk to major case detective in which OT eval order not appropriate at this time. Pt was here 07/2021 and had caregivers and was using dvaid lift and mainly bed bound. Therefore discharge OT eval orders.
[2021-12-05] MEDS: FUROSEMIDE 40 MG/4 ML VIAL 20 MG IV (11:28)
[2021-12-05] MEDS: ACETAMINOPHEN 325 MG TABLET 650 MG PO (11:28)
[2021-12-05] MEDS: HYDROXYCHLOROQUINE 200 MG TABLET PO ×2 (11:28→16:57)
[2021-12-05] MEDS: FOLIC ACID 1 MG TABLET PO (11:28)
[2021-12-05] MEDS: HYDROCORTISONE 100 MG/2 ML VIAL 50 MG IV (11:29)
[2021-12-05] MEDS: POTASSIUM CHLORIDE 20 MEQ/15 ML UDC 40 MEQ PO ×2 (11:54→18:18)
--- NOTE | 2021-12-05 14:51 | PT.IPNOTE ---
Physical therapy order received. Her bedrest order has been completed. Full chart review performed. Pt is wheelchair bound at at home and spends a lot of time in bed or in her recliner. She has a david lift at home and uses it or is a dependent transfer with her caregivers. Chart notes indicate she has caregivers at home to assist with all of her care. No skilled physical therapy needs identified at this time. Recommend nursing use a mechanical lift for transfers while she is hospitalized. Will discharge physical therapy order at this time.
--- NOTE | 2021-12-05 15:17 | CM.DANOTE ---
Addendum entered by KERI Ontiveros 12/07/21 08:24: ADD: [facility] caregivers; [id number] and [phone] Original Note: Initial DCP Assessment Note Pt is a 76 y.o. F with RA, MS, atrial fibrillation, EF preserved CHF, osteoporosis, severe kyphoscoliosis, who is wheelchair bound who presented with acute SOB. Admitted for management of acute resp failure, CHF vs infectious etiology Patient has [facility] caregivers at home. Patient has a david lift at home and uses it or is a dependent transfer with her caregivers Pt lives at [facility], uses the elevator to access her apt . Pt is currently wheelchair bound, states she has caregivers who come everyday for 3 hours a day to assist her. Pt states that her main transportation is the bus. Patient's daughter does live in the area and comes by to visit with her when she can. Pt states that once she gets discharged, she would need an ambulance to take her back home. Patient unsure she will consider SNF stay at this time Contacts Sriram and Johnathan have , as these were her two main contacts. Pt pleasant, cooperative with care, hx [facility] According to chart review; Dr Granado recommends SNF and subsequent RESIDENTIAL stay in consideration of patient's safety and recent hospitalizations. Unsure if this is a realistic option as patient has historically been insistent on returning home w/[facility] cgs and HH services CM team will plan to follow closely for coordination of this DCP; likely return home w/[facility] DAUGHERTY, [facility]gs via BLS transport KERI Sam Discharge Planning/Care Management Discharge Assessment Start: 12/05/21 15:13 Freq: Status: Active Protocol: Document 12/05/21 15:14 AMELIE (Rec: 12/05/21 15:17 AMELIE [id number]) Discharge Planning Assessment Assigned Valve Setter KERI Lindquist DPOA/Assigned Designee Name Emery yung dtr Contact Information [phone] Advance Directives? Yes: POLST Advance Directives on File Yes History Provided By Patient,Medical Record Has Patient been admitted in last 30 No days? Comment Admitted 7.20-7.23 Prior Living Arrangements Apartment/Condo Comment [facility] housing Household Members none Type of transporation used prior to Relies on Others admit Facility Name Admitted From: [email or web address] Willing to Return to Facility? Yes Independent with ADL's No Is patient alert and oriented? Yes Needs Assistance With Bathing,Grooming,Meal Prep, Toileting,Home Chores / Shopping Name of Agency [facility] Patient/Family Preference Home with Home Health Barriers to Discharge No Comment Home w/[facility] caregivers expected Discharge Plan Home with Home Health Referrals Initiated Home Health,Other Additional Comment patient would like [facility] services if recommended Medicare Choice List Provided No SNF/HH Preference [facility] Has Agency SNF been contacted No
[2021-12-05 17:31] LABS: HEMOLYSIS < 15 (0-50); Potassium 3.4 mmol/L (3.4-5.1)
[2021-12-05] MEDS: VANCOMYCIN TROUGH 1 REQUEST MISC (20:28)
--- NOTE | 2021-12-05 20:48 | PM.ICURNDS ---
- :: This patient was seen via real time interactive two-way audiovisual telecommunication. patient continues to diurese well, however BP was [place] udring my eval. Will start midodrine now, and obseevre overnight, if map remains adequate may be candidate for downgrade in am
[2021-12-05] MEDS: ATORVASTATIN 20 MG TABLET 40 MG PO (20:51)
[2021-12-05 21:10] LABS: Vancomycin Trough 14.2 ug/mL (10-20)
[2021-12-05] MEDS: MIDODRINE HCL 5 MG TABLET 10 MG PO (21:42)
[2021-12-05] MEDS: VANCOMYCIN PEAK 1 REQUEST MISC (23:23)
[2021-12-06] VITALS (71 sets, daily range): BP systolic 86–159; BP diastolic 43–120; PULSE 63–81; RESP 16–42; TEMP 35.8–37; O2SAT 85–98
[2021-12-06] MEDS: PIPERACILLIN/TAZO 3.375 GM in SODIUM CHLORIDE 0.9% 100 ML IV ×3 (00:17→16:50)
[2021-12-06] MEDS: FUROSEMIDE 40 MG/4 ML VIAL 20 MG IV (00:20)
[2021-12-06] MEDS: HYDROCORTISONE 100 MG/2 ML VIAL 50 MG IV (00:31)
[2021-12-06] MEDS: ACETAMINOPHEN 325 MG TABLET 650 MG PO ×2 (00:34→12:17)
[2021-12-06 00:49] LABS: Vancomycin Peak 30.9 ug/mL (20-40)
[2021-12-06 01:30] LABS: BUN Creatinine Ratio 23.2 (6-22); Blood Urea Nitrogen 13 mg/dL (7-17); Calcium 7.6 mg/dL (8.4-10.2); Carbon Dioxide 24 mmol/L (22-32); Chloride 110 mmol/L (98-107); Estimated Glomerular Filt Rate > 60 mL/min (>60); Glucose 88 mg/dL (80-110); HEMOLYSIS < 15 (0-50); Potassium 3.7 mmol/L (3.4-5.1); Sodium 140 mmol/L (137-145)
[2021-12-06 05:36] LABS: Blood Urea Nitrogen 13 mg/dL (7-17); Calcium 7.7 mg/dL (8.4-10.2); Carbon Dioxide 28 mmol/L (22-32); Chloride 109 mmol/L (98-107); Estimated Glomerular Filt Rate > 60 mL/min (>60); Glucose 125 mg/dL (80-110); HEMOLYSIS < 15 (0-50); Magnesium 1.6 mg/dL (1.6-2.3); Sodium 141 mmol/L (137-145)
--- NOTE | 2021-12-06 07:01 | PC.NURSE ---
End of shift report. Care of patient from [id number]. Patient AAOX4, denies pain. Needs assist with repositioning. At beginning of shift blood pressure cuff on right arm, SBP pressures 90s. During evening rounds with Dr. Flo Rai ordered, one dose given, SBP 90s-100s. Changed blood pressure cuff to left arm and found SBP >145. There is a big difference between left and right arm blood pressures. Currently the BP cuff is on the left arm for the higher reading. At 0600 SBP 146, held midodrine dose. Patient has been in SR 70s most of shift.
[2021-12-06] MEDS: HYDROXYCHLOROQUINE 200 MG TABLET PO ×2 (08:30→16:50)
[2021-12-06] MEDS: AMIODARONE 200 MG TABLET PO (08:30)
[2021-12-06] MEDS: APIXABAN 5 MG TABLET PO ×2 (08:30→20:37)
[2021-12-06] MEDS: FOLIC ACID 1 MG TABLET PO (08:31)
--- NOTE | 2021-12-06 09:29 | P.TELICUPN_ITS ---
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 obtained for tele-ballet company member care: Yes Patient Location: ICU Provider location (State): [place] Other participants/roles: none Interval history: Patient Summary: 76-year-old with history of CHF, AFib (s/p DCCV, on Apixaban & amiodarone) , LBBB , H/o of MS, RA on ( prednisone, methotrexate and hydroxychloroquine) osteoporosis, severe kyphoscoliosis , [place] resident, mod to severe , CHF (EF of 50% with diastolic dysfunction) admitted 12/03/21 with multifocal PNA, septic shock, and sob. Pt. started on LEvophed for BP support and Vanco/Zosyn/Levaquin for PNA coverage. 12/05: patient off pressors Recent Events -BP borderline low last night and therefore midodrine 10 mg TID started -patinet is 800 cc net neg in last 24 hours on lasix 20 mg IV BID -SBP this morning 90-120s -patient breathing comfortably on RA Current Medications Current Medications Medications: Home Medications ascorbic acid (vitamin C) 500 mg tablet 1,000 mg PO DAILY ##0 02/10/16 [History Confirmed 07/24/21] folic acid 1 mg tablet 1 mg PO DAILY ##0 02/10/16 [History Confirmed 07/24/21] lorazepam 0.5 mg tablet (Ativan) 0.5 mg PO HS #90 tabs 02/10/16 [History Confirmed 07/24/21] multivitamin (Multiple Vitamins tablet) 1 tab PO DAILY ##0 02/10/16 [History Confirmed 07/24/21] mupirocin 2 % topical ointment 1 applictn topical BID #30 grams 04/06/18 [Rx Co nfirmed 07/24/21] incontinence supplies #150 ea 05/05/18 [Rx Confirmed 12/03/21] wheelchair #1 ea 07/24/18 [Rx Confirmed 12/03/21] methotrexate sodium 2.5 mg tablet 12.5 mg PO .COMPLEX #90 tabs 12/10/20 [Rx Confirmed 07/24/21] atorvastatin 40 mg tablet See Rx Instructions .Route .COMPLEX #90 tabs 12/15/20 [Rx Confirmed 07/24/21] david lift #1 ea 04/14/21 [Rx Confirmed 12/03/21] amiodarone 200 mg tablet 200 mg PO DAILY #30 tabs 07/19/21 [Rx Confirmed 07/24/21] purewick female catheter #1 ea 08/03/21 [Rx Confirmed 12/03/21] purewick replacement canisters #1 ea 08/03/21 [Rx Confirmed 12/03/21] purewick suction canister #1 ea 08/03/21 [Rx Confirmed 12/03/21] apixaban 5 mg tablet (Eliquis) 5 mg PO BID #60 tabs 08/07/21 [Rx] potassium chloride 10 mEq capsule,extended release See Rx Instructions .Route .COMPLEX #60 caps 08/11/21 [Rx] hydroxychloroquine 200 mg tablet (Plaquenil) 200 mg PO BID #180 tabs 10/16/21 [Rx] prednisone 20 mg tablet 20 mg PO DAILY #12 tabs 10/24/21 [Rx] magnesium citrate 150 ml PO DAILY PRN constipation #296 mL 11/17/21 [Rx] polyethylene glycol 3350 17 gram/dose oral powder (Miralax) 17 g PO DAILY #119 grams 11/17/21 [Rx] bisacodyl 5 mg tablet,delayed release (Alophen (bisacodyl)) 5 mg PO BEDTIME PRN as needed for constipation #30 tabs 11/25/21 [Rx] furosemide 20 mg tablet 20 mg PO DAILY #90 tabs 11/25/21 [Rx] Visit Medications (administered) Generic Name Dose Route Start Last Admin Trade Name Freq PRN Reason Stop Dose Admin Acetaminophen 650 mg 12/04/21 12:00 12/06/21 08:31 Acetaminophen 325 Mg Tablet PO Not Given Q6HR MÓNICA Amiodarone HCl 200 mg 12/04/21 09:00 12/06/21 08:30 Amiodarone 200 Mg Tablet PO 200 mg DAILY MÓNICA Administration Apixaban 5 mg 12/04/21 09:00 12/06/21 08:30 Apixaban 5 Mg Tablet PO 5 mg BID MÓNICA Administration Atorvastatin Calcium 40 mg 12/05/21 21:00 12/05/21 20:51 Atorvastatin 20 Mg Tablet PO 40 mg BEDTIME MÓNICA Administration Folic Acid 1 mg 12/05/21 10:00 12/06/21 08:31 Folic Acid 1 Mg Tablet PO 1 mg DAILY MÓNICA Administration Furosemide 20 mg 12/05/21 12:00 12/06/21 00:20 Furosemide 40 Mg/4 Ml Vial IV 20 mg Q12HR MÓNICA Administration Heparin Sodium (Porcine) 50 unit 12/04/21 19:01 12/05/21 16:58 Heparin Flush (Cl/Picc/Mid-Line) 50 Unit/5 Ml Syringe IV 50 unit PRN PRN Administration Flush Hydrocortisone 50 mg 12/05/21 12:00 12/06/21 00:31 Hydrocortisone 100 Mg/2 Ml Vial IV 50 mg Q12HR MÓNICA Administration Hydroxychloroquine Sulfate 200 mg 12/05/21 09:55 12/06/21 08:30 Hydroxychloroquine 200 Mg Tablet PO 200 mg BIDWM MÓNICA Administration Piperacillin Sod/Tazobactam 100 mls @ 25 mls/hr 12/04/21 09:00 12/06/21 08:31 Sod 3.375 gm/ Sodium Chloride IV 25 mls/hr Q8H MÓNICA Administration Norepinephrine Bitartrate 8 mg 258 mls @ 15.48 mls/hr 12/04/21 10:00 12/04/21 15:25 / Dextrose IV 0 mcg/min TITRATE MÓNICA 0 mls/hr Titration Protocol 8 MCG/MIN Midodrine 10 mg 12/05/21 21:45 12/06/21 06:31 Midodrine Hcl 5 Mg Tablet PO Not Given 0600,1200,1800 MÓNICA Polyethylene Glycol 17 gm 12/05/21 10:00 12/06/21 08:32 Polyethylene Glycol 3350 17 Gm Powd.Pack PO Not Given DAILY MÓNICA Sodium Chloride 10 ml 12/04/21 21:00 12/06/21 08:32 Sodium Chloride 0.9% Flush IV Not Given BID MÓNICA Sodium Chloride 10 ml 12/04/21 19:00 12/05/21 16:58 Sodium Chloride 0.9% Flush IV 10 ml PRN PRN Administration Flush Objective Labs Result Diagrams: 12/03/21 20:26 12/06/21 04:50 Labs: Laboratory Results - last 24 hr 12/05/21 12/05/21 12/05/21 17:12 20:28 23:30 Sodium Potassium 3.4 Chloride Carbon Dioxide BUN Creatinine Estimated GFR BUN/Creatinine Ratio Glucose Calcium Magnesium Vancomycin Peak 30.9 Vancomycin Trough 14.2 12/05/21 12/06/21 23:30 04:50 Sodium 140 141 Potassium 3.7 3.0 L Chloride 110 H 109 H Carbon Dioxide 24 28 BUN 13 13 Creatinine 0.56 0.62 Estimated GFR > 60 > 60 BUN/Creatinine Ratio 23.2 H 21.0 Glucose 88 125 H Calcium 7.6 L 7.7 L Magnesium 1.6 Vancomycin Peak Vancomycin Trough Exam Vital Signs (past 8 hours): - 12/06/21 01:30 12/06/21 01:31 12/06/21 01:31 Pulse Rate 71 73 Respiratory Rate 25 H 32 H Blood Pressure 144/74 H Pulse Oximetry 94 94 Oxygen Delivery Method 12/06/21 01:45 12/06/21 02:00 12/06/21 02:00 Pulse Rate 73 75 Respiratory Rate 32 H 40 H Blood Pressure 135/81 Pulse Oximetry 96 95 Oxygen Delivery Method 12/06/21 02:15 12/06/21 02:30 12/06/21 02:30 Pulse Rate 70 69 Respiratory Rate 28 H 31 H Blood Pressure 137/91 H Pulse Oximetry 94 92 Oxygen Delivery Method 12/06/21 02:45 12/06/21 03:00 12/06/21 03:03 Pulse Rate 69 79 Respiratory Rate 29 H 28 H Blood Pressure 130/78 Pulse Oximetry 92 96 Oxygen Delivery Method 12/06/21 03:03 12/06/21 03:15 12/06/21 03:30 Pulse Rate 77 71 72 Respiratory Rate 24 21 22 Blood Pressure Pulse Oximetry 96 96 95 Oxygen Delivery Method 12/06/21 03:31 12/06/21 03:31 12/06/21 03:45 Pulse Rate 71 71 Respiratory Rate 23 31 H Blood Pressure 127/58 L Pulse Oximetry 95 96 Oxygen Delivery Method 12/06/21 04:00 12/06/21 04:00 12/06/21 04:15 Pulse Rate 74 76 Respiratory Rate 21 29 H Blood Pressure 128/78 Pulse Oximetry 96 95 Oxygen Delivery Method 12/06/21 04:30 12/06/21 04:30 12/06/21 04:45 Pulse Rate 74 73 Respiratory Rate 23 23 Blood Pressure 132/58 L Pulse Oximetry 95 96 Oxygen Delivery Method 12/06/21 05:00 12/06/21 05:01 12/06/21 05:01 Pulse Rate 74 74 Respiratory Rate 26 H 29 H Blood Pressure 142/71 H Pulse Oximetry 94 95 Oxygen Delivery Method 12/06/21 05:15 12/06/21 05:30 12/06/21 05:30 Pulse Rate 72 71 Respiratory Rate 36 H 23 Blood Pressure 153/65 H Pulse Oximetry 96 95 Oxygen Delivery Method 12/06/21 05:45 12/06/21 06:00 12/06/21 06:00 Pulse Rate 71 72 Respiratory Rate 21 27 H Blood Pressure 159/105 H Pulse Oximetry 95 95 Oxygen Delivery Method 12/06/21 06:02 12/06/21 06:03 12/06/21 06:03 Pulse Rate 74 75 Respiratory Rate 29 H 28 H Blood Pressure 146/63 H Pulse Oximetry 95 96 Oxygen Delivery Method 12/06/21 06:10 12/06/21 06:10 12/06/21 05:00 Pulse Rate 70 Respiratory Rate 40 H Blood Pressure 95/53 L Pulse Oximetry 96 Oxygen Delivery Method Room Air 12/06/21 06:15 12/06/21 06:30 12/06/21 06:31 Pulse Rate 72 72 Respiratory Rate 26 H 27 H Blood Pressure 106/51 L Pulse Oximetry 97 95 Oxygen Delivery Method 12/06/21 06:31 12/06/21 06:45 12/06/21 07:00 Pulse Rate 72 74 Respiratory Rate 22 25 H Blood Pressure 118/57 L Pulse Oximetry 95 96 Oxygen Delivery Method 12/06/21 07:00 12/06/21 07:15 12/06/21 07:30 Pulse Rate 73 75 Respiratory Rate 37 H 23 Blood Pressure 120/69 Pulse Oximetry 96 96 Oxygen Delivery Method 12/06/21 07:30 12/06/21 07:45 12/06/21 08:00 Pulse Rate 73 74 Respiratory Rate 21 21 Blood Pressure 123/58 L Pulse Oximetry 94 94 Oxygen Delivery Method 12/06/21 08:00 12/06/21 08:15 12/06/21 08:30 Pulse Rate 76 72 81 Respiratory Rate 24 33 H 26 H Blood Pressure Pulse Oximetry 93 85 L 95 Oxygen Delivery Method 12/06/21 08:39 12/06/21 08:39 12/06/21 08:45 Pulse Rate 75 79 Respiratory Rate 24 40 H Blood Pressure 106/76 Pulse Oximetry 98 92 Oxygen Delivery Method Fraction of Inspired Oxygen 30 Oxygen Delivery Method Room Air Oxygen Flow Rate 2 Narrative Exam Narrative: Patient seen sitting up in bed, alert, conversant, breathing comfortably on Quality TeleICU VTE Deep Vein Thrombosis/Pulmonary Embolism Present on Admission: No Assessment & Plan Assessment & Plan narrative: Assessment: PNA Sepsis-resolved CHF Plan -hold off on further diuresis today given low bP with diuresis yesterday - wean stress dose steroids to patient's outpatient prednisone regimen -replace K and Mg as needed -continue Zosyn and VAnco, f/u on cultures/specificity and narrow coverage if possible -continue midodrine 10 mg TID, as BP improves can wean midodrine to off as BP tolerates CCT spent 40 min Time Spent With Patient Critical Care time: I spent a total of [] minutes of critical care time on this patient's care today; this time is exclusive of procedural time.
--- NOTE | 2021-12-06 10:21 | P.PN_ITS ---
Subjective Subjective Date Patient Seen: 12/06/21 Time Patient Seen: 10:21 Interval history: Patient still with good urine output. Remains off oxygen. Blood pressure bit lowish but that seems to be kind of her baseline looking at her numbers over time she is (excluding when she was last hospitalized with another congestive heart failure episode, kind of all over the place with systolics between 90 and 120 consistently. That is pretty much where she is been here. Remains modestly hypokalemic Physical and occupational therapy pointed out yesterday that she is on bed rest order and requires Kwesi lift for any transfers her movements so probably not ap propriate for skilled therapy intervention, especially since patient refuses to go anywhere but to return home Exam Vital Signs (past 8 hours): - 12/06/21 02:30 12/06/21 02:30 12/06/21 02:45 Pulse Rate 69 69 Respiratory Rate 31 H 29 H Blood Pressure 137/91 H Pulse Oximetry 92 92 Oxygen Delivery Method 12/06/21 03:00 12/06/21 03:03 12/06/21 03:03 Pulse Rate 79 77 Respiratory Rate 28 H 24 Blood Pressure 130/78 Pulse Oximetry 96 96 Oxygen Delivery Method 12/06/21 03:15 12/06/21 03:30 12/06/21 03:31 Pulse Rate 71 72 Respiratory Rate 21 22 Blood Pressure 127/58 L Pulse Oximetry 96 95 Oxygen Delivery Method 12/06/21 03:31 12/06/21 03:45 12/06/21 04:00 Pulse Rate 71 71 Respiratory Rate 23 31 H Blood Pressure 128/78 Pulse Oximetry 95 96 Oxygen Delivery Method 12/06/21 04:00 12/06/21 04:15 12/06/21 04:30 Pulse Rate 74 76 Respiratory Rate 21 29 H Blood Pressure 132/58 L Pulse Oximetry 96 95 Oxygen Delivery Method 12/06/21 04:30 12/06/21 04:45 12/06/21 05:00 Pulse Rate 74 73 74 Respiratory Rate 23 23 26 H Blood Pressure Pulse Oximetry 95 96 94 Oxygen Delivery Method 12/06/21 05:01 12/06/21 05:01 12/06/21 05:15 Pulse Rate 74 72 Respiratory Rate 29 H 36 H Blood Pressure 142/71 H Pulse Oximetry 95 96 Oxygen Delivery Method 12/06/21 05:30 12/06/21 05:30 12/06/21 05:45 Pulse Rate 71 71 Respiratory Rate 23 21 Blood Pressure 153/65 H Pulse Oximetry 95 95 Oxygen Delivery Method 12/06/21 06:00 12/06/21 06:00 12/06/21 06:02 Pulse Rate 72 74 Respiratory Rate 27 H 29 H Blood Pressure 159/105 H Pulse Oximetry 95 95 Oxygen Delivery Method 12/06/21 06:03 12/06/21 06:03 12/06/21 06:10 Pulse Rate 75 70 Respiratory Rate 28 H 40 H Blood Pressure 146/63 H Pulse Oximetry 96 96 Oxygen Delivery Method 12/06/21 06:10 12/06/21 05:00 12/06/21 06:15 Pulse Rate 72 Respiratory Rate 26 H Blood Pressure 95/53 L Pulse Oximetry 97 Oxygen Delivery Method Room Air 12/06/21 06:30 12/06/21 06:31 12/06/21 06:31 Pulse Rate 72 72 Respiratory Rate 27 H 22 Blood Pressure 106/51 L Pulse Oximetry 95 95 Oxygen Delivery Method 12/06/21 06:45 12/06/21 07:00 12/06/21 07:00 Pulse Rate 74 73 Respiratory Rate 25 H 37 H Blood Pressure 118/57 L Pulse Oximetry 96 96 Oxygen Delivery Method 12/06/21 07:15 12/06/21 07:30 12/06/21 07:30 Pulse Rate 75 73 Respiratory Rate 23 21 Blood Pressure 120/69 Pulse Oximetry 96 94 Oxygen Delivery Method 12/06/21 07:45 12/06/21 08:00 12/06/21 08:00 Pulse Rate 74 76 Respiratory Rate 21 24 Blood Pressure 123/58 L Pulse Oximetry 94 93 Oxygen Delivery Method 12/06/21 08:15 12/06/21 08:30 12/06/21 08:39 Pulse Rate 72 81 Respiratory Rate 33 H 26 H Blood Pressure 106/76 Pulse Oximetry 85 L 95 Oxygen Delivery Method 12/06/21 08:39 12/06/21 08:45 Pulse Rate 75 79 Respiratory Rate 24 40 H Blood Pressure Pulse Oximetry 98 92 Oxygen Delivery Method Fraction of Inspired Oxygen 30 Oxygen Delivery Method Room Air Oxygen Flow Rate 2 Objective Labs Result Diagrams: 12/03/21 20:26 12/06/21 04:50 Labs: Laboratory Results - last 24 hr 12/05/21 12/05/21 12/05/21 17:12 20:28 23:30 Sodium Potassium 3.4 Chloride Carbon Dioxide BUN Creatinine Estimated GFR BUN/Creatinine Ratio Glucose Calcium Magnesium Vancomycin Peak 30.9 Vancomycin Trough 14.2 12/05/21 12/06/21 23:30 04:50 Sodium 140 141 Potassium 3.7 3.0 L Chloride 110 H 109 H Carbon Dioxide 24 28 BUN 13 13 Creatinine 0.56 0.62 Estimated GFR > 60 > 60 BUN/Creatinine Ratio 23.2 H 21.0 Glucose 88 125 H Calcium 7.6 L 7.7 L Magnesium 1.6 Vancomycin Peak Vancomycin Trough [facility] Medical History Hyperlipidemia Rheumatoid arthritis Social History household members: none Smoking Status: Never smoker alcohol intake: never Assessment & Plan Assessment & Plan narrative: 1. Respiratory-patient continues to respond as though this was an episode of congestive heart failure. Now mostly off oxygen (low-level restarted overnight, can probably be tapered off). Can probably transition to oral antibiotics within the next 24-36 hours, as I do think she should complete a course of antibiotic therapy for possible pneumonia given elevation in her procalcitonin white blood cell count etcetera. Blood cultures have remained negative 2. Cardiac-patient making good urine output. Can probably reduce her parental Lasix and I am going to restart oral Lasix tomorrow at slightly higher dose than her baseline dose (40 mg verses 20 mg) 3. Rheumatoid arthritis-continue patient's usual medications including her Plaquenil. She is on stress dose steroids which we can begin to taper. She also takes methotrexate on a weekly basis and I would hold off on that for the moment (she normally takes on Tuesdays anyway). 4. Endo-patient chronically on prednisone and is receiving stress dose parental steroids. I am going to switch her to oral steroids slightly higher than baseline, again 40 mg verses 20 mg of prednisone 5. GI-patient had issues with constipation requires a fair number of bowel meds to promote transit. Will put her back on MiraLax and have oral bisacodyl available for her as needed. Obviously needs to have her diet advanced as well 6. Adrenal-patient on stress dose IV steroids. Can delete resume oral pred nisone at this point, as above. 7. Fluids/electrolytes-patient persists with hypokalemia likely secondary to the IV furosemide. Magnesium remains normal but borderline low. Continue with oral potassium (but at a higher dose) and add oral magnesium supplementation and recheck tomorrow 8. Disposition-patient has been living independently with caregivers coming to the home. Now with 2 relatively back to back hospitalizations I am not convinced that it is appropriate for patient to return to her same living environment. Patient has been very resistant to placement any other facility other than returning home with 3 hour day caregivers. I am not sure this is entirely realistic for her to remain out of the hospital etcetera however I am not sure we can come up with any different plan patient would be willing to participate in. Given this and her basic wheelchair-bound status etcetera PT and OT did not feel like there was really any benefit to skilled therapy evaluation. Overall patient is much improved. Can be downgraded to floor status at this point. Note: Greater than 30 minutes total time was spent on day of service, evaluating the patient on the floor, including examining the patient, discussing clinical course with clinical and nursing staff, reviewing clinical course in the computer, preparing documentation and writing orders for continued management of care, discussing status with family as appropriate, reviewing plans for the next 24 hours with both patient/family and nursing staff as appropriate. COVID-19 COVID-19 status: Negative Result date/Date tested (Pos, Neg/Pending): 01/01/22 Time Spent With Patient Critical Care time: I spent a total of [] minutes of critical care time on this patient's care today ; this time is exclusive of procedural time. Quality VTE Deep Vein Thrombosis/Pulmonary Embolism Present on Admission: No
[2021-12-06] MEDS: VANCOMYCIN 1,250 MG/250 ML PIGGYBACK 250 MG IV (11:17)
[2021-12-06] MEDS: MAGNESIUM OXIDE 400 MG TABLET PO (11:18)
[2021-12-06] MEDS: predniSONE 20 MG TABLET 40 MG PO (11:18)
[2021-12-06] MEDS: MIDODRINE HCL 5 MG TABLET 10 MG PO (12:17)
[2021-12-06] MEDS: MAGNESIUM SULFATE 2 GM/50 ML PIGGYBACK IV (12:26)
--- NOTE | 2021-12-06 13:39 | CM.DPNOTE ---
Called [place]ato at [facility] and someone will call dc vacation planner on Tuesday for update. Sima Singh CM Assist.
--- NOTE | 2021-12-06 18:43 | DI.RAD.S_ITS ---
PROCEDURE: XR CHEST 1V INDICATIONS: SOB TECHNIQUE: One view of the chest was acquired. COMPARISON: [facility], CR, XR CHEST 1V, 12/04/2021, 4:33. FINDINGS: Surgical changes and devices: Right-sided central venous catheter is present distal tip projecting over the distal SVC. Lungs and pleura: There is diffuse appearance of increased pulmonary vascularity. Chronic interstitial changes are present. Mediastinum: Mediastinal contours appear normal. Heart size is enlarged. Bones and chest wall: No suspicious bony lesions. Overlying soft tissues appear unremarkable. IMPRESSION: Chronic interstitial changes as well as increased vascularity suggestive of edema. Dictated by: Cassie Lopez M.D. on 12/06/2021 at 19:37 Approved by: Cassie Lopez M.D. on 12/06/2021 at 19:38
[2021-12-06] MEDS: FUROSEMIDE 20 MG/2 ML VIAL IV (18:45)
--- NOTE | 2021-12-06 18:57 | PC.NURSE ---
Event Note At approximately 1815, patient with increase work of breathing with use of accessory muscles, O2 saturations dropping to 86% on RA, patient placed on 2L NC, with improvement of saturations to 95%. Patient complaint with increase work of breathing, lungs diminished to auscultation. All other VSS WNL. paged and VTORB for STAT IV Lasix 20mg, chest XR, BNP/BMP/Troponin. Orders implemented and awaiting for labs, will continued to monitor and update cut out press operator RN.
[2021-12-06 19:15] LABS: BUN Creatinine Ratio 19.7 (6-22); Blood Urea Nitrogen 12 mg/dL (7-17); Calcium 7.8 mg/dL (8.4-10.2); Carbon Dioxide 25 mmol/L (22-32); Chloride 108 mmol/L (98-107); Creatine Kinase 96 U/L (30-135); Estimated Glomerular Filt Rate > 60 mL/min (>60); Glucose 258 mg/dL (80-110); HEMOLYSIS < 15 (0-50); Potassium 3.2 mmol/L (3.4-5.1); Sodium 141 mmol/L (137-145)
[2021-12-06 19:25] LABS: NT-proBNP (BNP-Adult 18+) 8190 pg/mL (<450); Troponin I 0.084 ng/mL (0.01-0.034)
--- NOTE | 2021-12-06 19:46 | PC.NURSE ---
Pt BNP elevated to 8190 and troponin elevated to 0.084. Dr. Granado notified. No new orders given.
[2021-12-06] MEDS: ATORVASTATIN 20 MG TABLET 40 MG PO (20:37)
[2021-12-06] MEDS: SODIUM CHLORIDE 0.9% FLUSH 10 ML IV (20:40)
[2021-12-07] VITALS (34 sets, daily range): BP systolic 98–148; BP diastolic 51–100; PULSE 56–100; RESP 12–33; TEMP 36.7; O2SAT 92–100
[2021-12-07] MEDS: PIPERACILLIN/TAZO 3.375 GM in SODIUM CHLORIDE 0.9% 100 ML IV ×2 (01:12→08:28)
[2021-12-07 05:38] LABS: BUN Creatinine Ratio 20.8 (6-22); Blood Urea Nitrogen 11 mg/dL (7-17); Calcium 7.4 mg/dL (8.4-10.2); Carbon Dioxide 29 mmol/L (22-32); Chloride 111 mmol/L (98-107); Estimated Glomerular Filt Rate > 60 mL/min (>60); Glucose 125 mg/dL (80-110); HEMOLYSIS < 15 (0-50); Magnesium 2.3 mg/dL (1.6-2.3); Potassium 3.4 mmol/L (3.4-5.1); Sodium 142 mmol/L (137-145)
--- NOTE | 2021-12-07 05:43 | PC.NURSE ---
Addendum entered by Eunice Sow R.N. 12/07/21 07:01: As preceptor, I agree with Chelle RNs assessment, interventions, and documentation. Original Note: Pt kept on 2 L NC for duration of shift, satting 94%. BPs ranging from 100s to 140s systolic, with MAP greater than 65. Pt given 60 mEq of potassium. At beginning of shift, pt was exhibiting some use of accessory muscles to breathe, but improved during the shift. Crackles in bases of lungs with a heart murmur. Pt had one episode of loose stool. Guaiac test done, which resulted negative. Pt received 20 mg of lasix IV and had [address] Granado called at beginning of shift because BNP: 8190 and Troponin: 0.084. No new orders were given.
[2021-12-07 05:48] LABS: NT-proBNP (BNP-Adult 18+) 18800 pg/mL (<450)
[2021-12-07 06:31] LABS: Troponin I 0.125 ng/mL (0.01-0.034)
[2021-12-07] MEDS: FUROSEMIDE 20 MG/2 ML VIAL IV ×2 (08:27→22:00)
[2021-12-07] MEDS: POTASSIUM CHLORIDE 20 MEQ TAB PO ×3 (08:28→17:40)
[2021-12-07] MEDS: predniSONE 20 MG TABLET 40 MG PO (08:28)
[2021-12-07] MEDS: APIXABAN 5 MG TABLET PO ×2 (08:28→20:19)
[2021-12-07] MEDS: MAGNESIUM OXIDE 400 MG TABLET PO (08:28)
[2021-12-07] MEDS: AMIODARONE 200 MG TABLET PO (08:28)
[2021-12-07] MEDS: HYDROXYCHLOROQUINE 200 MG TABLET PO ×2 (08:28→17:40)
[2021-12-07] MEDS: FOLIC ACID 1 MG TABLET PO (08:28)
[2021-12-07] MEDS: SODIUM CHLORIDE 0.9% FLUSH 10 ML IV ×2 (08:29→20:36)
--- NOTE | 2021-12-07 09:18 | PM.PN.1 ---
Subjective Subjective Date Patient Seen: 12/07/21 Time Patient Seen: 09:18 Interval history: Patient doing well yesterday until early afternoon. She developed some upper abdominal pain similar to what she described back in October when she was hospitalized. Shortly thereafter within half an hour or so began to develop increasing shortness of breath and staff noticed increased work of breathing. She became hypoxic and required supplemental oxygen. She was given Lasix intravenously and repeat labs demonstrated an increase in BNP as well as a borderline/indeterminate troponin. Patient seem to stabilize with the above interventions and has remained stabilized overnight This morning BNP is further elevated and troponin is further elevated as well. Patient has struggled with some hypotension upon admission and intermittently has had some hypotension but currently blood pressure is in the 110 range systolic. She did have a low of 98 systolic earlier this morning Patient herself feels okay but not as good as she did yesterday Renal function remains normal electrolytes are also normal this morning Exam Vital Signs (past 8 hours): - 12/07/21 02:00 12/07/21 02:02 12/07/21 02:02 Temperature Pulse Rate 82 82 Respiratory Rate 21 19 Blood Pressure 145/69 H Pulse Oximetry 95 95 Oxygen Flow Rate 12/07/21 03:00 12/07/21 03:02 12/07/21 03:02 Temperature Pulse Rate 93 H 93 H Respiratory Rate 32 H 32 H Blood Pressure 142/88 H Pulse Oximetry 96 94 Oxygen Flow Rate 2 12/07/21 04:00 12/07/21 04:01 12/07/21 04:01 Temperature Pulse Rate 67 67 Respiratory Rate 13 13 Blood Pressure 98/51 L Pulse Oximetry 99 99 Oxygen Flow Rate 2 12/07/21 05:00 12/07/21 05:00 12/07/21 06:00 Temperature Pulse Rate 66 Respiratory Rate 13 Blood Pressure 101/61 108/53 L Pulse Oximetry 99 Oxygen Flow Rate 12/07/21 06:00 12/07/21 08:04 12/07/21 07:00 Temperature 98.1 F Pulse Rate 67 Respiratory Rate 12 Blood Pressure 101/59 L Pulse Oximetry 98 Oxygen Flow Rate 12/07/21 07:00 12/07/21 08:00 12/07/21 08:00 Temperature Pulse Rate 67 76 Respiratory Rate 14 31 H Blood Pressure 109/70 Pulse Oximetry 99 98 Oxygen Flow Rate Fraction of Inspired Oxygen 30 Oxygen Delivery Method Nasal Cannula Oxygen Flow Rate 2 Objective Labs Result Diagrams: 12/03/21 20:26 12/07/21 05:04 Labs: Laboratory Results - last 24 hr 12/06/21 12/07/21 12/07/21 18:43 05:04 05:04 Sodium 141 142 Potassium 3.2 L 3.4 Chloride 108 H 111 H Carbon Dioxide 25 29 BUN 12 11 Creatinine 0.61 0.53 Estimated GFR > 60 > 60 BUN/Creatinine Ratio 19.7 20.8 Glucose 258 H D 125 H D Calcium 7.8 L 7.4 L Magnesium 2.3 Total Creatine Kinase 96 CK-MB (CK-2) TNP CK-MB (CK-2) Rel Index TNP Troponin I 0.084 H NT-Pro-B Natriuret Pep 8190 H 12/07/21 12/07/21 05:04 05:04 Sodium Potassium Chloride Carbon Dioxide BUN Creatinine Estimated GFR BUN/Creatinine Ratio Glucose Calcium Magnesium Total Creatine Kinase CK-MB (CK-2) CK-MB (CK-2) Rel Index Troponin I 0.125 H* NT-Pro-B Natriuret Pep 89434 H [facility] Medical History Hyperlipidemia Rheumatoid arthritis Social History household members: none Smoking Status: Never smoker alcohol intake: never Assessment & Plan Assessment & Plan narrative: 1. Respiratory-patient with recurrent congestive heart failure. Please see discussion under cardiac below. Again there were markers suggesting possible pneumonia and patient continues on parental antibiotics. I think at this point we can certainly switch to oral antibiotics and I still believe she deserves a full course treatment for community-acquired pneumonia. Difficult to make a choice given her ongoing use of amiodarone which has a contraindication with fluoroquinolones and azithromycin. However I do want to treat her for atypical organisms and she is going to continue to be on telemetry and this is going to be relatively short duration as I think 7 days of total treatment, today being day 4 she will need only 3 additional days of an oral antibiotic and I am going to go with levofloxacin which I believe has a lower risk of dysrhythmia/QT prolongation than other choices and he had still has broad-spectrum coverage. Something such as Augmentin or doxycycline would be poor choices in my opinion with not enough broad-spectrum coverage to include atypical organisms (such as ureaplasms mycoplasmas etcetera primarily). 2. Cardiac-patient with recurrent congestive heart failure. Reviewing her history in detail she does appear to have moderate to severe aortic stenosis and I wonder if this is a contributing factor to these episodes. She also has a borderline elevated troponin. Will need to discuss with Cardiology about next steps. She is obviously a very poor candidate for any sort of invasive evaluation or procedure given her severe kyphoscoliosis etcetera. For now continue with IV furosemide with monitoring of electrolytes and renal function. I am going to go ahead and order another complete echocardiogram to relook at her valves as below, and see if we can get more definition. Ideally she would have a transesophageal echo but that is not available at this hospital and right now bed availability severely limits ability to transfer to alternate facilities, and I am not convinced it would change outcomes I also had a discussion with Cardiology on-call, Dr. Pena. She reviewed patient's echocardiogram from October as well as most recent 1 as well as cardiology notes from Dr. Schwartz and from November of this year. She agrees with me that patient most likely has critical aortic stenosis that is poorly documented on echocardiography. She has severe calcifications and evidence of both mitral valve disease and aortic valve disease as well as probably severe atherosclerotic disease. She pointed out that both Dr. Schwartz and Dr. Ochoa believe that she was not a candidate for a TAVR and certainly not for an open procedure. I would concur with that given her severe kyphoscoliosis, and her overall level of disability. Given the degree of valve disease that she does have any sort of accelerated heart rate is likely problematic. Recommendation was to trying keep her heart rate in the range of 50-55 in effort to give more time for more proper valve function opening and closing. She suggested that even a heart rate of 80 would likely be too fast for her cardiac valve function. Therefore I am going to start very low-dose metoprolol and escalate as able in effort to achieve heart rate as above. Continue with current diuretic therapy. Dr. Pena thought that palliative care/hospice care would also be entirely appropriate given what appears to be an end-stage cardiac condition without the ability to intervene as above. I would concur with that as well. 3. Rheumatoid arthritis-continue patient's usual medications including her Plaquenil. She is on stress dose steroids which we can begin to taper. She also takes methotrexate on a weekly basis, I will be due for that tomorrow, Tuesday the and that is probably okay 4. Endo-patient chronically on prednisone and is back on oral prednisone at slightly higher than baseline dosing 5. GI-patient had issues with constipation requires a fair number of bowel meds to promote transit. Patient with episode of abdominal pain I wonder if this is related to her cardiac issues as above. Currently not an active issue. 6. Adrenal-patient continues on prednisone slightly higher than baseline doses 7. Fluids/electrolytes-electrolytes improve need to continue to monitor given her need for continued parental diuretics. 8. Disposition-patient has been living independently with caregivers coming to the home. Now with 2 relatively back to back hospitalizations I am not convinced that it is appropriate for patient to return to her same living environment. Patient has been very resistant to placement any other facility other than returning home with 3 hour day caregivers. I am not sure this is entirely realistic for her to remain out of the hospital etcetera however I am not sure we can come up with any different plan patient would be willing to participate in. Given this and her basic wheelchair-bound status etcetera PT and OT did not feel like there was really any benefit to skilled therapy evaluation. This point I am also beginning to wonder whether there is more cardiac issues at play here than have been apparent to this point that may need to be addressed separately. Patient can continue on floor status for now in my opinion. Note: Greater than 30 minutes total time was spent on day of service, evaluating the patient on the floor, including examining the patient, discussing clinical course with clinical and nursing staff, reviewing clinical course in the computer, preparing documentation and writing orders for continued management of care, discussing status with family as appropriate, reviewing plans for the next 24 hours with both patient/family and nursing staff as appropriate. COVID-19 COVID-19 status: Negative Result date/Date tested (Pos, Neg/Pending): 01/01/22 Time Spent With Patient Critical Care time: I spent a total of [] minutes of critical care time on this patient's care today; this time is exclusive of procedural time. Quality VTE Deep Vein Thrombosis/Pulmonary Embolism Present on Admission: No
--- NOTE | 2021-12-07 09:35 | DI.ECHO.S_ITS ---
[place] +---------+ [facility] +---------+ : : [address] : [place] [address] : : : : [id number] : : : : Phone: [phone]+ Echocardiogram Report + + :Name: CHINMAY SIMS Study Date: 12/07/2021 Height: 62 in : :[facility] ReadingLocation: Weight: 130 lb : : Gender: Female BSA: 1.6 m2 : :: 1945 Age: 76 yrs BP: 109/70 mmHg: :Reason For Study: Aortic valve stenosis : :Ordering Physician: AMARILYS, : :JODY Ken Performed By: Pedrito Hoffman : :Referring: JODY PANDA : + + Interpretation Summary Normal sinus rhythm. The left ventricle is normal in size. There is moderate-severe concentric left ventricular hypertrophy. Left ventricular systolic function is normal. The ejection fraction is estimated to be 55-60%. There are no focal wall motion abnormalities. Stage II diastolic dysfunction. Severe LA enlargement; otherwise normal chamber sizes. Aortic valve is a trileaflet structure with severely thickened and calcified leaflets. There is low gradient low flow aortic stenosis with peak velocity of 3 m/sec, mean gradient os 19 mm Hg yet severely reduced leaflet excursion and calculated valve area of 0.8 cm squared. There is mild associated tricuspid regurgitation. Severe MAC with mild associated mitral stenosis (mean gradient is 3 mm Hg) The right ventricle is normal in size and function. Estimated PA systolic pressure is 58 mm Hg assuming RA pressure of 15 mm Hg. Compared to prior complete echo 10/22/2021 aortic valve calculated area is down from 1.2 cm squared to 0.8 cm squared consistent with worsening aortic stenosis. IVC was not well visualized on prior study, but on current study it is clear that central venous pressure is quite high at 15 mm Hg. PA systolic pressure was estimated at 29 mm Hg on prior study whereas on current study PA systolic pressure is estimated at 58 mm Hg. Procedure: A two-dimensional transthoracic echocardiogram with color flow and Doppler was performed. The study quality was technically adequate. Comparison is made with the echocardiogram of 10/22/2021. Left Ventricle: The left ventricle is normal in size. There is moderate- severe concentric left ventricular hypertrophy. Left ventricular systolic function is normal. The ejection fraction is estimated to be 55-60%. There are no focal wall motion abnormalities. Diastolic function could not be accurately assessed due to confounding valvular disease. Right Ventricle: The right ventricle is normal in size and function. Atria: The left atrium is severely dilated. The right atrium grossly appears normal in size. The interatrial septum grossly appears intact with no obvious evidence for an atrial septal defect. Mitral Valve: There is severe mitral annular calcification. There is mild mitral regurgitation. Aortic Valve: The aortic valve is not well visualized. The peak aortic velocity is 3 m/sec. The aortic valve mean gradient is 19 mmHg. The calculated aortic valve area is .8 cm2. Overall severe aortic stenosis (paradoxically low gradient). There is mild aortic regurgitation. Tricuspid Valve: The tricuspid valve is not well visualized, but is grossly normal. There is mild tricuspid regurgitation. The right ventricular systolic pressure is estimated to be at least 58 mmHg based on an estimated right atrial pressure of 15 mm Hg. Pulmonic Valve: The pulmonic valve is not well seen, but is grossly normal. There is mild pulmonic regurgitation. Great Vessels: The aortic root is not well visualized. The dimensions of the ascending aorta are normal. The IVC is dilated (diameter is greater than 2.1 cm) and it collapses less than 50% with a sniff. This suggests a high right atrial pressure of 15 mm Hg. Pericardium/ Pleura There is no pericardial effusion. There is no pleural effusion. MMode/2D Measurements & Calculations LVIDd: 4.8 cm LVOT diam: 2.0 cm LVIDs: 3.4 cm asc Aorta Diam: 3.2 cm FS: 29.7 % IVSd: 1.5 cm LVPWd: 1.6 cm LV mcgraw. diameter/BSA (cm/m^2): 3.0 LV sys. diameter/BSA (cm/m^2): 2.1 LA A2 area: 23.8 cm2 RA long axis: 5.1 cm LA A4 area: 27.4 cm2 RA area: 13.3 cm2 LA length (vol): 6.1 cm RA vol: 29.4 ml LA vol: 90.1 ml RA : 18.5 ml/m2 LA vol index: 56.6 ml/m2 IVC diam: 2.5 cm TAPSE: 2.0 cm Doppler Measurements & Calculations Ao V2 max: 301.2 cm/sec LVOT Max Santi: 76.3 cm/sec Ao V2 mean: 205.1 cm/sec LV V1 max P.3 mmHg Ao max P.3 mmHg LV V1 VTI: 16.1 cm Ao mean P.1 mmHg MICHAEL(I,D): 0.78 cm2 Ao V2 VTI: 64.4 cm MICHAEL(V,D): 0.79 cm2 sev ratio: 0.25 MICHAEL indexed to BSA (cm^2/m^2): 0.49 MV E max santi: 136.6 cm/sec TR max santi: 326.9 cm/sec MV A max santi: 92.2 cm/sec TR max P.8 mmHg MV E/A: 1.5 Med Peak E' Santi: 2.3 cm/sec E/E' med: 59.4 Lat Peak E' Santi: 3.3 cm/sec E/E' lat: 41.8 E/e' average: 50.6 MV dec time: 0.19 sec SV(LVOT): 50.4 ml Electronically signed by: Citlaly Pena M.D. on Reading Physician:12/07/2021 01:52 PM
[2021-12-07] MEDS: METOPROLOL IR 25 MG TABLET 12.5 MG PO (11:31)
[2021-12-07 12:40] LABS: BUN Creatinine Ratio 17.9 (6-22); Blood Urea Nitrogen 10 mg/dL (7-17); Calcium 7.8 mg/dL (8.4-10.2); Carbon Dioxide 33 mmol/L (22-32); Chloride 107 mmol/L (98-107); Estimated Glomerular Filt Rate > 60 mL/min (>60); Glucose 93 mg/dL (80-110); HEMOLYSIS < 15 (0-50); Potassium 3.2 mmol/L (3.4-5.1); Sodium 141 mmol/L (137-145)
[2021-12-07 12:52] LABS: Troponin I 0.114 ng/mL (0.01-0.034)
[2021-12-07] MEDS: ACETAMINOPHEN 325 MG TABLET 650 MG PO ×2 (14:20→20:23)
[2021-12-07] MEDS: ATORVASTATIN 20 MG TABLET 40 MG PO (20:19)
[2021-12-07] MEDS: METOPROLOL IR 25 MG TABLET PO (20:20)
[2021-12-07] MEDS: POTASSIUM CHLORIDE 20 MEQ TAB 40 MEQ PO (20:23)
[2021-12-08] VITALS (11 sets, daily range): BP systolic 102–137; BP diastolic 57–92; PULSE 51–86; RESP 14–51; TEMP 35.8–37.1; O2SAT 91–100
[2021-12-08 06:20] LABS: Add Manual Diff / Slide Review NO; Basophils Absolute Auto 100 /uL (0-100); Basophils Percent Auto 0.7 % (0-2); Eosinophils Absolute Auto 100 /uL (0-450); Eosinophils Percent Auto 0.5 % (2-4); Hematocrit 31.4 % (36-46); Hemoglobin 10.4 g/dL (12.0-16.0); Lymphocytes Absolute Auto 2000 /uL (1100-4500); Lymphocytes Percent Auto 17.6 % (25-40); Mean Corpuscular Hemoglobin 30.6 PG (26-34); Mean Corpuscular Volume 92.7 fL (80-100); Monocytes Absolute Auto 1000 /uL (0-900); Monocytes Percent Auto 8.7 % (3-14); Neutrophils Absolute Auto 8000 /uL (1500-7000); Neutrophils Percent Auto 72.5 % (50-75); Platelet Count 219 X10^3/uL (150-400); Red Blood Cell Count 3.39 X10^6/uL (4.0-5.2); Red Cell Distribution Width 15.3 % (11.6-14.8); White Blood Cell Count 11.1 X10^3/uL (4.5-11.0)
[2021-12-08 06:28] LABS: BUN Creatinine Ratio 22.4 (6-22); Blood Urea Nitrogen 11 mg/dL (7-17); Calcium 8.4 mg/dL (8.4-10.2); Carbon Dioxide 31 mmol/L (22-32); Chloride 106 mmol/L (98-107); Estimated Glomerular Filt Rate > 60 mL/min (>60); Glucose 96 mg/dL (80-110); HEMOLYSIS < 15 (0-50); Magnesium 2.2 mg/dL (1.6-2.3); Potassium 4.5 mmol/L (3.4-5.1); Sodium 138 mmol/L (137-145)
[2021-12-08 06:37] LABS: NT-proBNP (BNP-Adult 18+) 21500 pg/mL (<450)
--- NOTE | 2021-12-08 08:14 | P.PN_ITS ---
Subjective Subjective Date Patient Seen: 12/08/21 Time Patient Seen: 12:45 Interval history: The pt reports that she is overall feeling okay. She remains uncomfortable in bed, but states it is tolerable. She looks forward to returning to her bed at home. She does state that all the pills she has to take are starting to upset her stomach. Exam Vital Signs (past 8 hours): - 12/08/21 01:00 12/08/21 02:00 12/08/21 03:00 Temperature Pulse Rate 62 65 Respiratory Rate 23 51 H Blood Pressure 126/57 L Pulse Oximetry 95 95 Oxygen Flow Rate 12/08/21 03:00 12/08/21 04:00 12/08/21 04:00 Temperature Pulse Rate 60 64 Respiratory Rate 15 17 Blood Pressure 134/62 Pulse Oximetry 93 93 Oxygen Flow Rate 12/08/21 03:00 12/08/21 08:00 Temperature 97.1 F L Pulse Rate 63 74 Respiratory Rate 14 22 Blood Pressure 134/62 137/92 H Pulse Oximetry 91 95 Oxygen Flow Rate 0 0 Fraction of Inspired Oxygen 30 Oxygen Delivery Method Room Air Oxygen Flow Rate 0 Narrative Exam Narrative: Gen: NAD, sitting comfortably in bed, speaking easily in complete sentences, does have gurgling sound when breathing CV: RRR, grade 4/6 systolic murmur Resp: clear to auscultation bilaterally, no wheezes or crackles Abd: soft, nontender, nondistended, normoactive bowel sounds Ext: no edema Objective Labs Result Diagrams: 12/08/21 06:05 12/08/21 06:05 Labs: Laboratory Results - last 24 hr 12/07/21 12/08/21 12/08/21 11:00 06:05 06:05 WBC 11.1 H RBC 3.39 L Hgb 10.4 L Hct 31.4 L MCV 92.7 MCH 30.6 MCHC 33.0 RDW 15.3 H Plt Count 219 Neut % (Auto) 72.5 Lymph % (Auto) 17.6 L [place] % (Auto) 8.7 Eos % (Auto) 0.5 L Baso % (Auto) 0.7 Neut # (Auto) 8000 H Lymph # (Auto) 2000 [place] # (Auto) 1000 H Eos # (Auto) 100 Baso # (Auto) 100 Sodium 141 138 Potassium 3.2 L 4.5 D Chloride 107 106 Carbon Dioxide 33 H 31 BUN 10 11 Creatinine 0.56 0.49 L Estimated GFR > 60 > 60 BUN/Creatinine Ratio 17.9 22.4 H Glucose 93 96 Calcium 7.8 L 8.4 Magnesium 2.2 Troponin I 0.114 H NT-Pro-B Natriuret Pep 14109 H [facility] Medical History Hyperlipidemia Rheumatoid arthritis Social History household members: none Smoking Status: Never smoker alcohol intake: never Assessment & Plan Assessment & Plan narrative: Pt is a 76yo woman with RA, MS, atrial fibrillation, EF preserved CHF, ost eoporosis, severe kyphoscoliosis, who is wheelchair bound who presented with acute SOB, found to have acute hypoxemic respiratory failure needing pressure support. Initially thought to be due to septic shock (which was appropriately treated), however based on response to therapies and negative cultures, more likely due to flash pulmonary edema. Pts respiratory status has not stabilized, and she is back on room air. Repeat echocardiogram unfortunately showing worsing of the pts aortic stenosis, now to critical levels. Acute hypoxemic respiratory failure:? Likely from flash pulmonary edema, however will complete treatment course for community-acquired pneumonia. Now stable on room air. Severe aortic stenosis: Dr Granado discussed with Cardiology yesterday. Pt is not a candidate for TAVR. Recommended attempting to keep HR in the 50-55 range to allow time for valve to open/close, however this is temporizing measure. Pt likely to have ongoing issues with fluid overload/pulmonary edema. Due to severity, recommendation is for palliative care/hospice. Discussed recommendation with the patient in detail today. She feels the need to discuss with her family and friends. - Increase Metoprolol to 50mg BID as HR currently in the upper 60s-70s - Continue Midodrine for pressure support - Will have ongoing discussions regarding hospice care Acute on chronic ejection fraction preserved CHF:? BNP unfortunately continues to rise, likely due to aortic stenosis as above. Does have gurgling sound with breathing, although no distinct crackles on exam. - Cautiously increase Lasix to 40mg BID - Trend BMP to monitor electrolytes and kidney function Community-acquired pneumonia:? Relatively immobility at home and CHF risk factors. - Continue Levofloxacin PO to complete course (Day 5/7) Atrial fibrillation:? Paroxysmal.? Stable and rate controlled, currently in sinus rhythm. - Continue home Amiodarone, Eliquis Multiple Sclerosis:? Stable Rheumatoid arthritis:? Stable - Continue home Plaquenil, weekly Methotrexate, Hydroxychloroquine - Continue prednisone 40mg daily, will be tapering back to usual baseline dose Severe kyphoscoliosis:? Stable.? Wheelchair bound at baseline. Constipation: Stable. - Continue home medications Code: DNR FEN: Regular diet DVT ppx: On Eliquis Dispo: Pending stabilization of pts HR, proven stability of respiratory status. Discussed with pt placement in SNF vs return home today, in addition to possibility of hospice care. Strongly encouraged her to consider SNF placement, as pt has had multiple hospitalizations this year already and status will only continue to decline with aortic stenosis. Pt will discuss with her family /friends. Discussed with CM, who will begin to look into SNF placement as well. Time Spent With Patient Critical Care time: I spent a total of [] minutes of critical care time on this patient's care today; this time is exclusive of procedural time. Quality VTE Deep Vein Thrombosis/Pulmonary Embolism Present on Admission: No
[2021-12-08] MEDS: polyethylene glycoL 3350 17 GM POWD.PACK PO (08:39)
[2021-12-08] MEDS: METOPROLOL IR 25 MG TABLET PO ×2 (08:39→12:30)
[2021-12-08] MEDS: APIXABAN 5 MG TABLET PO ×2 (08:39→20:32)
[2021-12-08] MEDS: levoFLOXacin 250 MG TABLET PO (08:40)
[2021-12-08] MEDS: AMIODARONE 200 MG TABLET PO (08:40)
[2021-12-08] MEDS: FOLIC ACID 1 MG TABLET PO (08:40)
[2021-12-08] MEDS: predniSONE 20 MG TABLET 40 MG PO (08:40)
[2021-12-08] MEDS: HYDROXYCHLOROQUINE 200 MG TABLET PO ×2 (08:40→18:26)
[2021-12-08] MEDS: SODIUM CHLORIDE 0.9% FLUSH 10 ML IV ×3 (08:41→20:32)
[2021-12-08] MEDS: FUROSEMIDE 20 MG/2 ML VIAL IV (08:52)
[2021-12-08] MEDS: ACETAMINOPHEN 325 MG TABLET 650 MG PO ×2 (09:00→18:31)
[2021-12-08] MEDS: MAG HYDROX/ALUM/SIMETH 30 ML UDC PO ×2 (09:02→16:41)
[2021-12-08] MEDS: ONDANSETRON 4 MG/2 ML INJ IV (16:41)
[2021-12-08] MEDS: POTASSIUM CHLORIDE 20 MEQ TAB 40 MEQ PO (18:29)
[2021-12-08] MEDS: FUROSEMIDE 20 MG/2 ML VIAL 40 MG IV (18:30)
[2021-12-08] MEDS: ATORVASTATIN 20 MG TABLET 40 MG PO (20:32)
[2021-12-08] MEDS: METOPROLOL IR 25 MG TABLET 50 MG PO (20:32)
[2021-12-09] VITALS (29 sets, daily range): BP systolic 91–122; BP diastolic 42–63; PULSE 25–56; RESP 15–38; TEMP 36.2–37.1; O2SAT 91–100
[2021-12-09] MEDS: MIDODRINE HCL 5 MG TABLET 10 MG PO ×3 (05:51→17:55)
[2021-12-09] MEDS: FUROSEMIDE 20 MG/2 ML VIAL 40 MG IV ×2 (05:52→17:55)
--- NOTE | 2021-12-09 07:08 | P.PN_ITS ---
Subjective Subjective Date Patient Seen: 12/09/21 Time Patient Seen: 08:00 Interval history: The pt reports that she is overall feeling okay this morning. She states that her breathing is stable, and denies any SOB. She denies any chest pain. She was able to have a BM this morning. She is feeling slightly down after our discussion regarding her prognosis yesterday. She was able to talk with her son yesterday, and states that he was very upset. Exam Vital Signs (past 8 hours): - 12/09/21 04:00 Temperature 97.1 F L Pulse Rate 54 L Respiratory Rate 20 Blood Pressure 91/53 L Pulse Oximetry 98 Oxygen Flow Rate 0 Fraction of Inspired Oxygen 30 Oxygen Delivery Method Room Air Oxygen Flow Rate 0 Narrative Exam Narrative: Gen: NAD, sitting comfortably in bed, not as perky as usual CV: RRR, grade 4/6 systolic murmur Resp: decreased breath sounds throughout, faint crackles bilateral bases Abd: soft, nontender, nondistended, normoactive bowel sounds Ext: no edema Objective Labs Result Diagrams: 12/09/21 07:45 12/09/21 07:45 PFSH Medical History Hyperlipidemia Rheumatoid arthritis Social History household members: none Smoking Status: Never smoker alcohol intake: never Assessment & Plan Assessment & Plan narrative: Pt is a 76yo woman with RA, MS, atrial fibrillation, EF preserved CHF, osteoporosis, severe kyphoscoliosis, who is wheelchair bound who presented with acute SOB, found to have acute hypoxemic respiratory failure needing pressure support.? Initially thought to be due to septic shock (which was appropriately treated), however based on response to therapies and negative cultures, more likely due to flash pulmonary edema.? Pts respiratory status has not stabilized, and she is back on room air.? Repeat echocardiogram unfortunately showing worsing of the pts aortic stenosis, now to critical levels. Acute hypoxemic respiratory failure:? Likely from flash pulmonary edema, however will complete treatment course for community-acquired pneumonia.? Now stable on room air. Severe aortic stenosis:? Dr Granado discussed with Cardiology on 12/07.? Pt is not a candidate for TAVR.? Recommended attempting to keep HR in the 50-55 range to allow time for valve to open/close, however this is temporizing measure.? Pt likely to have ongoing issues with fluid overload/pulmonary edema.? Due to severity, recommendation is for palliative care/hospice.? Discussed recommendation again with the pt in detail today. She is agreeable ot hospice care. HR improved and now in the upper 40s to 50s consistently. - Continue Metoprolol to 50mg BID - Continue Midodrine for pressure support - Referral to hospice placed today by Care Management Acute on chronic ejection fraction preserved CHF:? BNP stable now, likely due to aortic stenosis as above.? Respiratory exam slightly worse than yesterday, although pt has diuresed more in the past 24hrs. - Continue Lasix 40mg BID IV - Trend BMP to monitor electrolytes and kidney function - Will hold home potassium and magnesium for now due to pt having difficulty taking pills Community-acquired pneumonia:? Relatively immobility at home and CHF risk factors. - Continue Levofloxacin PO to complete course (Day 6/7) Atrial fibrillation:? Paroxysmal.? Stable and rate controlled, currently in sinus rhythm. -? Continue home Amiodarone, Eliquis Multiple Sclerosis:? Stable Rheumatoid arthritis:? Stable - Continue home Plaquenil, weekly Methotrexate, Hydroxychloroquine - Continue prednisone 40mg daily, will be tapering back to usual baseline dose Severe kyphoscoliosis:? Stable.? Wheelchair bound at baseline. Constipation:? Stable. - Continue home medications Code:? DNR. Discussed pressor support if needed, and the would still like this for now. She is undecided if she would want to return to the hospital if she developed worsening symptoms as an outpatient. She will discuss this further with her family. Discussed with the patient that ideally we will want to know before she discharges. FEN:? Regular diet DVT ppx:? On Eliquis Dispo:? Pt is medically stabilizing. While her cardiac/respiratory status is tenuous, I believe it will be optimized to our greatest capacity as early as tomorrow. Discussed with CM and the patient as well. The pt is agreeable to SN F placement with hospice. CM to work on exploring these options. Time Spent With Patient Critical Care time: I spent a total of [] minutes of critical care time on this patient's care today; this time is exclusive of procedural time. Quality VTE Deep Vein Thrombosis/Pulmonary Embolism Present on Admission: No
--- NOTE | 2021-12-09 07:48 | DIET.CONS2 ---
Dietary Inpatient Consultation Note Admission Date: 12/04/2021 05:12 76y F admitted for SOB found to have flash pulmonary edema c physician team working on fluid balance. RD consulted for low Dhruv score (14) and low MNA score 9 (high risk malnutrition). RD team has worked with pt during previous hospitalizations, pt compliant with ONS Mani and fruit cup at meals to support skin integrity and nutrition status in addition to meal tray. Chronic moderate PCM r/t increased protein needs d/t wounds and limited pro intake aeb diet recall of limited protein foods, skin ulcers, physical signs of moderate muscle and fat loss. Diet: 12/06/21 Lunch Heart Healthy Diet Diet Modifications: Sodium Level: 2 gm Sodium Nutrition Percent Meal Consumed 25% 12/08/21 18:26 Percent Meal Consumed 0% 12/08/21 14:12 Electronically Signed by: Justine Chowdhury 12/09/21 07:48 Clinical Diet[address] [id number]
[2021-12-09 07:51] LABS: Hematocrit 30.7 % (36-46); Mean Corpuscular HGB Conc 32.7 % (30-36); Mean Corpuscular Hemoglobin 30.6 PG (26-34); Mean Corpuscular Volume 93.5 fL (80-100); Platelet Count 232 X10^3/uL (150-400); Red Blood Cell Count 3.28 X10^6/uL (4.0-5.2); Red Cell Distribution Width 15.6 % (11.6-14.8); White Blood Cell Count 10.5 X10^3/uL (4.5-11.0)
[2021-12-09 08:05] LABS: Alanine Aminotransferase 71 IU/L (<35); Albumin 3.1 g/dL (3.5-5.0); Albumin Globulin Ratio 1.3 (1.0-2.8); Alkaline Phosphatase 34 U/L (38-126); Aspartate Aminotransferase 68 IU/L (14-36); BUN Creatinine Ratio 23.1 (6-22); Bilirubin Total 0.5 mg/dL (0.2-1.3); Blood Urea Nitrogen 15 mg/dL (7-17); Calcium 8.4 mg/dL (8.4-10.2); Carbon Dioxide 37 mmol/L (22-32); Chloride 102 mmol/L (98-107); Estimated Glomerular Filt Rate > 60 mL/min (>60); Globulin 2.4 g/dL (1.7-4.1); Glucose 108 mg/dL (80-110); HEMOLYSIS < 15 (0-50); Potassium 4.2 mmol/L (3.4-5.1); Sodium 139 mmol/L (137-145); Total Protein 5.5 g/dL (6.3-8.2)
[2021-12-09 08:13] LABS: NT-proBNP (BNP-Adult 18+) 19500 pg/mL (<450)
--- NOTE | 2021-12-09 08:35 | SLP.IPNOTE ---
Spoke with nursing re: order for swallow evaluation. Pt is picky and needs meds cut into tiny pieces one at a time with a carrier. Pt refuses crushed medication. Discussed pt status with Dr. Negron (PCP). Pt is not appropriate for swallowing evaluation at this time. MD in agreement and will cancel the order.
[2021-12-09] MEDS: FOLIC ACID 1 MG TABLET PO (08:59)
[2021-12-09] MEDS: polyethylene glycoL 3350 17 GM POWD.PACK PO (08:59)
[2021-12-09] MEDS: levoFLOXacin 250 MG TABLET PO (09:00)
[2021-12-09] MEDS: predniSONE 20 MG TABLET 40 MG PO (09:00)
[2021-12-09] MEDS: AMIODARONE 200 MG TABLET PO (09:00)
[2021-12-09] MEDS: METOPROLOL IR 25 MG TABLET 50 MG PO (09:00)
[2021-12-09] MEDS: HYDROXYCHLOROQUINE 200 MG TABLET PO ×2 (09:00→17:55)
[2021-12-09] MEDS: APIXABAN 5 MG TABLET PO ×2 (09:00→20:51)
[2021-12-09] MEDS: SODIUM CHLORIDE 0.9% FLUSH 10 ML IV ×2 (09:01→20:52)
[2021-12-09] MEDS: ACETAMINOPHEN 325 MG TABLET 650 MG PO ×2 (12:02→17:55)
--- NOTE | 2021-12-09 15:43 | CM.DPNOTE ---
DCP Note Coordinating plan today; spoke w/ Dr Negron this morning who has spoken with patient re prognosis and patient would like addtl. info re hospice. Dr Negron hopeful that patient will agree to SNF as this would be the safest outcome upon DC, likely medically stable w/in 24-48 hrs Met then with patient, son Jonathon, family friend (and Jonathon's cg) Antonia ([facility]) and community integrated marketing intern Prasanth Cerda (patient requested Prasanth participate). Discussed DCP options Patient agreeable to Hospice services and requests referral [facility] Reviewed SNF selections via IPAD and patient/family request broad SNF search to [facility], [facility], [facility], [facility] and [facility] This is what has been requested of these SNFs when reviewing: Patient would admit under her [facility] benefit for longterm care. [facility] would likely cover the Hospice services Dr Negron updated. Referral to [facility] sent. Spoke Diane at [facility], she anticipates she can accept patient with above stated plan of care. PASRR completed. Faxed copy of POLST to Elsie. [place] now running patient's [place] coverage to see if she has superintendent marine oil terminal care/SNF benefit. Meanwhile, faxed patient's CHIRAG ART Ramirez P# [phone] F# [phone] patient's updated clinical information Need to get update from Fela/[facility] in the AM then coordinate w/ [facility], patient and Dr Haywood tomorrow AM, potential for DC tomorrow to [facility], superintendent marine oil terminal care resident, on hospice services KERI Sam
[2021-12-09] MEDS: ATORVASTATIN 20 MG TABLET 40 MG PO (20:51)
[2021-12-09] MEDS: METOPROLOL IR 25 MG TABLET PO (20:52)
[2021-12-10] VITALS (17 sets, daily range): BP systolic 92–122; BP diastolic 47–60; PULSE 42–61; RESP 17–39; TEMP 35.9–36.6; O2SAT 87–95
[2021-12-10] MEDS: ACETAMINOPHEN 325 MG TABLET 650 MG PO (04:28)
[2021-12-10 05:06] LABS: Alanine Aminotransferase 64 IU/L (<35); Albumin 3.2 g/dL (3.5-5.0); Albumin Globulin Ratio 1.3 (1.0-2.8); Alkaline Phosphatase 33 U/L (38-126); Aspartate Aminotransferase 43 IU/L (14-36); BUN Creatinine Ratio 29.8 (6-22); Bilirubin Total 0.4 mg/dL (0.2-1.3); Blood Urea Nitrogen 25 mg/dL (7-17); Calcium 8.7 mg/dL (8.4-10.2); Carbon Dioxide 36 mmol/L (22-32); Chloride 97 mmol/L (98-107); Estimated Glomerular Filt Rate > 60 mL/min (>60); Globulin 2.4 g/dL (1.7-4.1); Glucose 97 mg/dL (80-110); HEMOLYSIS < 15 (0-50); Potassium 3.8 mmol/L (3.4-5.1); Sodium 138 mmol/L (137-145); Total Protein 5.6 g/dL (6.3-8.2)
[2021-12-10 05:15] LABS: NT-proBNP (BNP-Adult 18+) 16300 pg/mL (<450)
[2021-12-10] MEDS: FUROSEMIDE 20 MG/2 ML VIAL 40 MG IV (05:54)
--- NOTE | 2021-12-10 07:36 | CM.DPC ---
Addendum entered by Amparo Dias R.N. 12/10/21 13:11: Spoke to Lexi at [facility] with update. She received DC Summary and HALL DIRECTOR note as well. Spoke to her CHIRAG case manage from [facility] with update. Updated Fela at [facility] regarding patient's allergies. Addendum entered by Amparo Dias R.N. 12/10/21 12:06: Faxed [facility] the DC Summary, and HALL DIRECTOR note regarding conversation with family, from yesterday. Will follow up with a phone call to Lexi at [facility] today. Addendum entered by Amparo Dias R.N. 12/10/21 10:43: [facility] can accept patient today, confirmed with Fela. Called Dr. Haywood, he will complete orders. Sima has kindly gone over to the clinic to pickle sorter the signed med orders. Asked Dr. Haywood to complete DC Summary, as many facilities will not accept patient's without them. PASSR completed. Sima has set up pickle sorter for today at 1130, BLS. Fela did request a denial from [facility] for skilled needs. Let her know that this DC [employer] received a denial from Teagan Smart, [facility] director of casework, and faxed over this DC [employer]erryboat [employer]'s note reflecting this. Addendum entered by Amparo Dias R.N. 12/10/21 09:02: Teagan from [facility] left a message denying skilled coverage, for patient is going on hospice under her custodial care services. Updated Dr. Haywood, and had him sign [facility] form, about plan, and that this DC [employer] is waiting to hear back from [facility] to see if they can accept patient today. Let him know that this DC [employer]erryboat [employer]per will call him back if she is accepted today so he can do orders. COVID swab has been put in. Original Note: DCP Cont: Called Fela at [facility] to see if she can accept patient today. She indicated, she has to check with her team to see if they can accept her today. She will get back to this DC [employer]boat [employer]. Patient will need updated COVID swab as well, and will need to ensure that DC Summary is in place as well. KERI Montes, has worked with facility on getting patient established with custodial care through her CHIRAG, and also, referral was [facility] to [facility] P: DCP to continue to work on getting patient to [facility]. Discussions have occurred with patient regarding this plan. Amparo Dias, RN/Sliver Lapper
[2021-12-10] MEDS: HYDROXYCHLOROQUINE 200 MG TABLET PO (08:00)
[2021-12-10] MEDS: levoFLOXacin 250 MG TABLET PO (08:30)
[2021-12-10] MEDS: AMIODARONE 200 MG TABLET PO (08:30)
[2021-12-10] MEDS: METOPROLOL ER 50 MG TABLET PO (08:30)
[2021-12-10] MEDS: APIXABAN 5 MG TABLET PO (08:30)
[2021-12-10] MEDS: FOLIC ACID 1 MG TABLET PO (08:31)
[2021-12-10] MEDS: predniSONE 20 MG TABLET 40 MG PO (08:31)
[2021-12-10] MEDS: SODIUM CHLORIDE 0.9% FLUSH 10 ML IV (08:32)
[2021-12-10 08:36] LABS: COVID19 -Nasal RAPID Negative (Negative)
--- NOTE | 2021-12-10 09:00 | PC.RNWOUND ---
Patient resting in bed, turns to side with assist of wound nurse and DISTRICT CUSTOMS DIRECTOR, is cleansed up of stool incontinence. Skin to sacrogluteal area has some redness noted to gluteal cleft, perineum, and scattered surrounding areas, no skin breakdown or open areas noted. Zinc-based barrier cream is in use, heels floated with foam heel protectors, patient repositioned with pillows, sacral dressing is clean, dry, intact, on for protection with no signs of breakdown underneath dressing. Patient tolerates cares well, reports comfort.
--- NOTE | 2021-12-10 09:34 | P.DS_ITS ---
History of Present Illness History of Present Illness Chief complaint: SOB Discharge Providers Provider Date of admission: 12/04/21 05:12 Discharge Date: 12/10/21 Primary care physician: Radha Negron MD Consults: 12/05/21 10:12 Consult to Physical Therapy Evaluate & Treat Comment: Physician Instructions: Evaluate and Treat 12/08/21 13:28 Consult to Speech Therapy Evaluate & Treat Comment: difficulty with pills Physician Instructions: Evaluate and treat 12/08/21 16:24 Consult to Dietitian, Adult Routine Comment: Reason For Exam: ranjan score 12/09/21 15:10 Consult to Inpatient Wound Care Nurse Routine Comment: Reason for consultation: wheelchair/bedbound, sacral dressing in place Discharge provider: Isac Haywood MD Summary Hospital Course Discharge Diagnosis: Patient admitted to the hospital with acute hypoxic respiratory failure due fla sh pulmonary edema due to underlying heart failure. Patient had improvement of clinical course with diuresis diuretics and BiPAP. Community-acquired pneumonia. Due to her underlying respiratory condition and respiratory failure patient completed a course of community-acquired pneumonia with antibiotics. Patient is now currently stable on room air. Severe 80 or or Keshav stenosis patient has severe kit aortic stenosis not a candidate for TAVR are. Recommended keeping heart rate low by Cardiology. Patient was treated with beta-blockers during her hospital stay. Long discussion in regards to chronic care management for this including hospice care. Ultimate plan is to discharge patient home with hospice care. Patient was placed on metoprolol and mid her own. Acute on chronic heart failure with preserved ejection fraction due to underlying valvular heart disease. Patient was treated with diuretics during the hospital stay had management of her electrolytes. Atrial fibrillation paroxysmal with rapid ventricular response stable and currently rate controlled in sinus rhythm she has amiodarone on Eliquis Chronic multiple sclerosis stable Rheumatoid arthritis chronic and stable. Code status discharged with the DNR code status and hospice consultation due to her multiple comorbidities patient is bedbound she mentating well and critical aortic stenosis patient will be discharged to [facility] with hospice support Exam Vital Signs (past 8 hours): - 12/10/21 04:00 12/10/21 08:30 12/10/21 07:00 Temperature 96.9 F L Pulse Rate 48 L 57 L Respiratory Rate 17 Blood Pressure 118/56 L 92/47 L Pulse Oximetry 94 Oxygen Delivery Method Room Air Oxygen Flow Rate 12/10/21 02:00 12/10/21 03:00 12/10/21 03:10 Temperature Pulse Rate 45 L 51 L 48 L Respiratory Rate 28 H 18 25 H Blood Pressure Pulse Oximetry 90 L 91 95 Oxygen Delivery Method Oxygen Flow Rate 12/10/21 03:10 12/10/21 04:00 12/10/21 05:00 Temperature Pulse Rate 42 L 42 L Respiratory Rate 22 18 Blood Pressure 118/56 L Pulse Oximetry 91 92 Oxygen Delivery Method Oxygen Flow Rate 12/10/21 05:43 12/10/21 05:43 12/10/21 06:00 Temperature Pulse Rate 44 L 47 L Respiratory Rate 39 H 25 H Blood Pressure 112/60 Pulse Oximetry 91 94 Oxygen Delivery Method Oxygen Flow Rate 12/10/21 07:00 12/10/21 07:58 12/10/21 07:58 Temperature Pulse Rate 48 L 51 L Respiratory Rate 23 32 H Blood Pressure 92/47 L Pulse Oximetry 93 95 Oxygen Delivery Method Oxygen Flow Rate 12/10/21 08:00 12/10/21 08:00 Temperature 97.9 F Pulse Rate 51 L 52 L Respiratory Rate 19 23 Blood Pressure 112/60 Pulse Oximetry 94 93 Oxygen Delivery Method Oxygen Flow Rate 0 Fraction of Inspired Oxygen 30 Oxygen Delivery Method Room Air Oxygen Flow Rate 0 Objective Labs Result Diagrams: 12/09/21 07:45 12/10/21 04:47 Labs: Laboratory Results - last 24 hr 12/10/21 12/10/21 04:47 08:00 Sodium 138 Potassium 3.8 Chloride 97 L Carbon Dioxide 36 H BUN 25 H Creatinine 0.84 Estimated GFR > 60 BUN/Creatinine Ratio 29.8 H Glucose 97 Calcium 8.7 Magnesium 2.0 Total Bilirubin 0.4 AST 43 H ALT 64 H Alkaline Phosphatase 33 L NT-Pro-B Natriuret Pep 13503 H Total Protein 5.6 L Albumin 3.2 L Globulin 2.4 Albumin/Globulin Ratio 1.3 SARS-CoV-2 (PCR) Negative [facility] Medical History Hyperlipidemia Rheumatoid arthritis Social History household members: none Smoking Status: Never smoker alcohol intake: never Discharge Plan Discharge Plan Patient Disposition: SNF Discharge orders & Medications Prescriptions: New midodrine 5 mg Tablet 10 mg PO 0600,1200,1800 Qty: 30 0RF metoprolol succinate 50 mg Tablet Extended Release 24 Hr 50 mg PO DAILY Qty: 30 0RF Continued (DME) incontinence supplies Qty: 150 0RF Dose Instruction: As directed Rx Instructions: As directed change up to 5 times daily ([facility]) wheelchair device See Dose Instructions .ROUTE .MEDSUPPLY Qty: 1 0RF Dose Instruction: As directed Rx Instructions: repair and replace as needed atorvastatin 40 mg tablet See Rx Instructions .ROUTE .COMPLEX Qty: 90 1RF Dose Instruction: TAKE 1 TABLET BY MOUTH DAILY Rx Instructions: TAKE 1 TABLET BY MOUTH DAILY ([facility]) david lift See Rx Instructions .Route .MEDSUPPLY Qty: 1 0RF Rx Instructions: As directed ([facility]) purewick female catheter See Rx Instructions .Route .MEDSUPPLY Qty: 1 6RF Rx Instructions: One full box of 30 please. As directed ([facility]) purewick suction canister See Rx Instructions .Route .MEDSUPPLY Qty: 1 6RF Rx Instructions: As directed ([facility]) purewick replacement canisters See Rx Instructions .Route .MEDSUPPLY Qty: 1 6RF Rx Instructions: As directed Eliquis 5 mg tablet 5 mg PO BID Qty: 60 1RF potassium chloride 10 mEq capsule, extended release See Rx Instructions .ROUTE .COMPLEX Qty: 60 5RF Dose Instruction: TAKE 1 CAPSULE BY MOUTH TWICE DAILY Rx Instructions: TAKE 1 CAPSULE BY MOUTH TWICE DAILY hydroxychloroquine [Plaquenil] 200 mg tablet 200 mg PO BID Qty: 180 3RF furosemide 20 mg tablet 20 mg PO DAILY Qty: 90 0RF bisacodyl [Alophen (bisacodyl)] 5 mg tablet,delayed release (DR/EC) 5 mg PO BEDTIME PRN (Reason: as needed for constipation) Qty: 30 0RF amiodarone 200 mg tablet 200 mg PO DAILY Qty: 30 0RF prednisone 5 mg Tablet 5 mg PO DAILY prednisone 2.5 mg Tablet 2.5 mg PO BEDTIME polyethylene glycol 3350 [Miralax] 17 gram/dose powder 17 g PO DAILY Qty: 119 0RF Discontinued magnesium citrate Solution 150 ml PO DAILY PRN (Reason: constipation) Qty: 296 0RF Rx Instructions: For bowel movement as needed. This is for severe constipation. Follow up/Referrals: Radha Negron MD [Primary Care Provider] - Discharge Data Primary Care Provider: Radha Negron VTE Deep Vein Thrombosis/Pulmonary Embolism Present on Admission: No
--- NOTE | 2021-12-10 10:59 | PC.NURSE ---
Discontinued patients aguila catheter at 10:50. Mentioned to RN that the manage aguila care' option was not available, so I was advised to write this note.
== END 2021-12-10 11:40 | DRG 291 ==
LOC: ED 23:20 → AC 12-04 05:13 → ICU 12-04 05:24
PROVIDERS: Internal Medicine; Internal Medicine Critical Care Medicine; Admitting Provider Family Medicine; Emergency Provider Emergency Medicine; PCP Family Medicine; Referring Provider Emergency Medicine; Visit Provider Family Medicine
DX: I50.33 Acute on chronic diastolic (congestive) heart failure (principal); J96.01 Acute respiratory failure with hypoxia; J18.9 Pneumonia, unspecified organism; I48.0 Paroxysmal atrial fibrillation; M41.9 Scoliosis, unspecified; I95.9 Hypotension, unspecified; M06.9 Rheumatoid arthritis, unspecified; K59.00 Constipation, unspecified; E87.6 Hypokalemia; I35.0 Nonrheumatic aortic (valve) stenosis; E78.5 Hyperlipidemia, unspecified; Z20.822 Contact with and (suspected) exposure to COVID-19; Z66 Do not resuscitate
CPT/HCPCS: 36415; 36592; 36600; 71045; 80048; 80053; 80202; 81003; 82550; 82805; 83605; 83735; 83880; 84132; 84145; 84484; 85025; 85027; 85379; 85610; 87040; 87635; 87797; 93005; 93010; 93306; 93307; 94660; 96365; 96366; 96367; 96368; 96375; 99232; 99233; 99238; 99285; 99291; C9803; J0171; J1642; J1720; J1940; J1956; J2405; J2543; J3475